=== PATIENT | female | born 1935 | race Caucasian/White ===

== ENCOUNTER 2016-11-04 09:01 | Outpatient (CLI) | payer MEDICARE, OTHER | END 2016-11-04 09:02 | disposition home or self-care (01) | DX: R10.9 Unspecified abdominal pain (principal) ==

== ENCOUNTER 2016-11-25 11:16 | Emergency (ER) | payer MEDICARE, OTHER ==
[2016-11-25] MEDS ORDERED: CLINDAMYCIN 150 MG CAPSULE PO STA (13:58)
[2016-11-25] MEDS ORDERED: CLINDAMYCIN 150 MG CAPSULE PO ONE (13:59)
== END 2016-11-25 14:10 | disposition home or self-care (01) ==
DX: L03.811 Cellulitis of head [any part, except face] (principal); T85.79XA Infection and inflammatory reaction due to other internal prosthetic devices, implants and grafts, initial encounter; Y83.8 Other surgical procedures as the cause of abnormal reaction of the patient, or of later complication, without mention of misadventure at the time of the procedure; I10 Essential (primary) hypertension; E11.9 Type 2 diabetes mellitus without complications; Z79.4 Long term (current) use of insulin; E78.5 Hyperlipidemia, unspecified; I25.10 Atherosclerotic heart disease of native coronary artery without angina pectoris; Z95.1 Presence of aortocoronary bypass graft; Z79.82 Long term (current) use of aspirin
CPT/HCPCS: 36415; 80053; 83605; 83690; 85025; 87040; 87070; 87205; 99283; A9270

== ENCOUNTER 2017-03-18 10:38 | Outpatient (CLI) | payer MEDICARE, OTHER ==
--- NOTE | 2017-03-19 17:49 | XRAY Report ---
RIGHT FOOT THREE VIEWS: 03/18/2017 CLINICAL HISTORY: Pain in the left hip and right foot. FINDINGS: Vascular calcification is seen in the anterior and posterior tibial arteries at the level of the ankle. Small accessory ossification center is seen adjacent to the tarsonavicular bone. Minimal narrowing is noted between the talus and navicular bone. Mild narrowing is seen at the right 1st MP joint. Mild n arrowing is seen in the proximal and distal interphalangeal joints of the 2nd, 4th and 5th toes. No s ignificant change is noted as compared to 08/29/2016. IMPRESSION: NO SIGNIFICANT CHANGE IS NOTED COMPARED TO 08/29/2016 WITH MILD OSTEOARTHRITIS OF THE RIGHT FOOT AND MILD OSTEOPOROSIS SEEN. JOB #: [id number] EXT JOB #:[id number]
--- NOTE | 2017-03-19 17:53 | XRAY Report ---
AP PELVIS AND FROGLEG LATERAL VIEW OF THE LEFT HIP: 03/18/2017 CLINICAL HISTORY: Pain. FINDINGS: The hip joints appear normal. No significant osteoarthritic change is detected in the hips . Mild narrowing of each SI joint. Minimal narrowing is noted in the symphysis pubis. Disk prosthesis is noted at L4-5. There are two in number at the L4-5 disk. There is also suggestion of disk space n arrowing at L5-S1. Some surgical clips are seen superimposed over the central aspect of the superior sacrum. Vascular calcification is noted in the femoral arteries. IMPRESSION: 1. NORMAL HIPS. 2. MILD OSTEOARTHRITIS IS NOTED IN THE SI JOINTS. 3. EVIDENCE OF BACK SURGERY IS NOTED WITH DISK PROSTHESES SEEN IN THE L4-5 DISK. DEGENERATIVE DISK DI SEASE IS ALSO NOTED AT L5-S1. :9 JOB #: [id number] EXT JOB #:[id number]
== END 2017-03-18 10:39 | disposition home or self-care (01) ==
LOC: DI.S 10:38
PROVIDERS: ATTEND Internal Medicine
DX: M19.071 Primary osteoarthritis, right ankle and foot (principal); M81.0 Age-related osteoporosis without current pathological fracture; M47.818 Spondylosis without myelopathy or radiculopathy, sacral and sacrococcygeal region; M51.37 Other intervertebral disc degeneration, lumbosacral region

== ENCOUNTER 2017-03-20 09:25 | Emergency (ER) | payer MEDICARE, OTHER ==
[2017-03-20 09:50] VITALS: BP 187/89
[2017-03-20 10:33] LABS: BILIRUBIN,URINE NEGATIVE (NEGATIVE); PH,URINE 5.5 PH (5.0-7.5)
[2017-03-20 10:38] LABS: UA CHARGE (STRIP ONLY) YES; UR CULTURE IF IND NOT INDICATED
[2017-03-20] MEDS ORDERED: TETANUS/DIPHTHERIA/PERTUSSIS 0.5 ML SYRINGE IM ONE (10:53)
--- NOTE | 2017-03-20 10:53 | ED Physician Documentation ---
PD HPI UPPER EXT INJURY - Stated complaint Stated Complaint: GLF/R ARM LAC - Chief complaint Chief Complaint: General - History obtained from History obtained from: Patient - History of Present Illness Location: Right, Arm Type of injury: Fall Where injury occurred: Home Timing - onset: Today Timing - duration: Minutes Timing - details: Abrupt onset, Still present Improved by: Rest, Immobilization Worsened by: Moving, Palpating Associated symptoms: No: Weakness, Numbness, Tingling, Swelling Contributing factors: No: Anticoagulated Similar symptoms before: Diagnosis (thin skin tear) Recently seen: Other (The patient has been on a course of antibiotic for UTI 2 weeks ago.) - Additonal information Additional information: 81-year-old female was getting up from the commode when she fell in her bathroom tearing the skin on her right arm. She did not have any loss of consciousness with a fall and she did not injure herself otherwise. She has been having an issue with urgency. And this is been long-standing. She is recently been treated for urinary tract infection. She does not feel that she has symptoms of urinary tract infection today. Review of Systems Constitutional: denies: Fever, Chills, Myalgias, Fatigue Eyes: denies: Decreased vision Ears: denies: Ear pain Nose: denies: Congestion Throat: denies: Sore throat Cardiac: denies: Chest pain / pressure GI: reports: Abdominal Pain, Nausea, Constipation : reports: Other (Urgency). denies: Dysuria, Frequency Skin: reports: Laceration (s). denies: Rash Musculoskeletal: reports: Extremity pain. 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 Cardiovascular: CABG - Present Medications Home Medications: Ambulatory Orders Medication Instructions Recorded Confirmed Cyanocobalamin (Vitamin B-12) 1,000 mcg SQ ONCE 05/16/14 10/10/15 [Cyanocobalamin Injection] Folic Acid 1 mg PO DAILY 05/16/14 10/10/15 Magnesium Oxide [Magnesium] 400 mg PO DAILY 05/16/14 10/10/15 Aspirin [Aspir-Low] 81 mg DAILY 11/25/16 11/25/16 Insulin Glargine [Lantus] 25 - 30 units QPM 11/25/16 11/25/16 - Allergies Allergies/Adverse Reactions: Allergies Allergy/AdvReac Type Severity Reaction Status Date / Time meperidine HCl * Allergy Severe Respiratory Verified 03/20/17 09:39 [From Demerol] pain meds Allergy Intermediate Nausea Uncoded 03/20/17 09:39 preservatives in lidocaine Allergy Intermediate Respiratory Uncoded 03/20/17 09: 39 preservatives in medications Allergy Intermediate Respiratory Uncoded 03/20/17 09:39 - Social History Does the pt smoke?: No Smoking Status: Never smoker PD ED PE NORMAL - Vitals Vital signs reviewed: Yes (Hypertensive) - General General: No acute distress, Well developed/nourished - HEENT HEENT: Atraumatic, PERRL - Neck Neck: Supple, no meningeal sign - Respiratory Respiratory: No respiratory distress - Derm Derm: Normal color, Warm and dry, No rash - Extremities Extremities: No deformity, No edema, Other (There is a thin skin tear to the right arm. Laterally.There is extensive tissue loss superficially and bleeding is controlled.) - Neuro Neuro: No motor deficit, No sensory deficit - Psych Psych: Normal mood, Normal affect Results - Vitals Vitals: Vital Signs - 24 hr 03/20/17 09:34 Temperature 36.4 C L Heart Rate 66 Respiratory 16 Rate Blood Pressure 187/89 H O2 Saturation 99 Oxygen O2 Source Room air - Labs Labs: Laboratory Tests 03/20/17 10:25 Urine Color YELLOW Urine Clarity CLEAR Urine pH 5.5 Ur Specific [place] >=1.030 H Urine Protein NEGATIVE Urine Glucose (UA) NEGATIVE Urine Ketones 15 H Urine Occult Blood NEGATIVE Urine Nitrite NEGATIVE Urine Bilirubin NEGATIVE Urine Urobilinogen 0.2 (NORMAL) Ur Leukocyte Esterase NEGATIVE Ur Microscopic Review NOT INDICATED Urine Culture Comments NOT INDICATED PD MEDICAL DECISION MAKING - ED course Complexity details: reviewed results, re-evaluated patient, considered differential, d/w patient ED course: 81-year-old female with a thin skin tear on her arm is cleansed and dressed conservatively there is missing tissue. The patient does have complaints of constipation she has used an enema without relief she has been taking something as well from above and believes this might be MiraLAX. She has not had results in 3 days. She has some nausea associated with this. She is encouraged to use milk of magnesia or magnesium citrate. Departure - Departure Disposition: 01 Home, Self Care Clinical Impression: Avulsion of skin of right upper extremity Qualifiers: Encounter type: initial encounter Qualified Code(s): S41.101A - Unspecified open wound of right upper arm, initial encounter Condition: Stable Instructions: ED Avulsion Dermal Follow-Up: Iván Downs MD [Primary Care Provider] -
[2017-03-20] MEDS ORDERED: cefTRIAXone 1 GM VIAL ONE (10:54)
== END 2017-03-20 11:23 | disposition home or self-care (01) ==
LOC: ED 09:25
DX: S41.101A Unspecified open wound of right upper arm, initial encounter (principal); W01.198A Fall on same level from slipping, tripping and stumbling with subsequent striking against other object, initial encounter; Y92.012 Bathroom of single-family (private) house as the place of occurrence of the external cause; N28.89 Other specified disorders of kidney and ureter; Z96.89 Presence of other specified functional implants; I25.10 Atherosclerotic heart disease of native coronary artery without angina pectoris; M51.36 Other intervertebral disc degeneration, lumbar region; M54.2 Cervicalgia; R42 Dizziness and giddiness; R10.0 Acute abdomen; R41.3 Other amnesia; R20.0 Anesthesia of skin; I11.0 Hypertensive heart disease with heart failure; I50.9 Heart failure, unspecified; E11.9 Type 2 diabetes mellitus without complications; Z79.4 Long term (current) use of insulin; K21.9 Gastro-esophageal reflux disease without esophagitis; M19.90 Unspecified osteoarthritis, unspecified site; Z79.82 Long term (current) use of aspirin
CPT/HCPCS: 70450; 72040; 74176; 81001; 81003; 87086; 90471; 99283

== ENCOUNTER 2017-03-20 13:10 | Outpatient (CLI) | payer MEDICARE, OTHER ==
--- NOTE | 2017-03-21 11:14 | CT Report ---
NONCONTRAST HEAD CT: 03/20/2017 CLINICAL HISTORY: Patient has headache. COMPARISON: 11/02/2014 TECHNIQUE: Noncontrast head CT was done at 5 x 5 mm intervals in axial and coronal reconstructions. In accordance with CT protocol optimization, one or more of the following dose reduction techniques w ere utilized for this exam: automated exposure control, adjustment of mA and/or KV based on patient size, or use of iterative reconstructive technique. FINDINGS: Cerebral ventricles show mild dilatation with mildly prominent sulci. Findings are compat ible with age-related cerebral atrophy. There is also some mild microvascular ischemic change, espec ially silhouetting the anterior horn of each lateral ventricle. These findings are unchanged as comp ared to preceding exam dated 11/02/2014. No extraaxial fluid collections are seen. No hemorrhage is noted. Brainstem and cerebellar hemispheres show no significant abnormality. Bone windows demonstrate no significant abnormality. IMPRESSION: MILD AGE-RELATED CEREBRAL ATROPHY AND MICROVASCULAR ISCHEMIC CHANGE, NOT SIGNIFICANTLY C HANGED COMPARED TO 11/02/2014. JOB #: [id number] EXT JOB #:[id number]
--- NOTE | 2017-03-21 11:37 | CT Report ---
NONCONTRAST CT SCAN OF THE ABDOMEN AND PELVIS: 03/20/2017 CLINICAL HISTORY: Severe abdominal pain. TECHNIQUE: Noncontrast CT exam of the abdomen and pelvis was done at 5 x 5 mm intervals with axial, coronal, and sagittal reconstructions. In accordance with CT protocol optimization, one or more of the following dose reduction techniques w ere utilized for this exam: automated exposure control, adjustment of mA and/or KV based on patient size, or use of iterative reconstructive technique. FINDINGS: Lower lung estrada show no significant abnormality. Sternal wire sutures are seen. Significant calcification is noted in the right coronary artery and i n the circumflex coronary artery. Also, calcification is seen in the distal anterior descending marcie nary artery. Liver and spleen are normal. Pancreas is mildly atrophic without abnormality. Gallbladder is not se en. It may be contracted or absent. No surgical clips are seen in the right upper quadrant of the a bdomen. Common hepatic and common bile duct do not appear to be distended. Adrenal glands are normal. Right kidney demonstrates a small calculus in association with the mid-to -inferior pole calyx. This measures 2 mm in diameter. There is calcification seen along the posteri or inferior aspect of the right kidney. This may represent scarring or may represent calcification w ithin a cyst. The calcification measures 7 mm. Left kidney demonstrates a mass with Hounsfield units of 34 extending from the lateral aspect of the posterior portion of the left kidney. This mass appears to be a solid one measuring 2.0 x 1.5 x 1.8 cm. It is suspicious for a renal cell carcinoma. Recommend a contrast-enhanced CT exam of the urina ry tract in both the corticomedullary and pyelogram phase for further evaluation. If patient cannot have a contrast-enhanced exam of the kidneys because of poor renal function, then recommend a left re nal ultrasound for further evaluation. Right ureter shows no definite abnormality. Right ureter is not distended. There is a small calcifi cation adjacent to the medial aspect of the mid right ureter that probably lies adjacent to the right ureter or within the right ureteral wall. It does not appear to reside in the lumen of the right ur eter. Left ureter shows no significant abnormality. Bladder shows no significant abnormality. Joseline aortic and pericaval region demonstrates no adenopathy. Significant vascular calcification is noted at the origin of the superior mesenteric artery. Patient may have a significant proximal superior me senteric artery stenosis. Vascular calcification is noted in the abdominal aorta and its iliac branc hes. Bowel gas pattern demonstrates the small bowel to be normal. This includes the terminal ileum. The colon shows a few small diverticula. These are noted at the junction of the descending and sigmo id colon and in the proximal transverse colon. There are also a few diverticula seen in the ascendin g colon. No obvious diverticulitis is seen. There is no adjacent mesenteric fat in association with any of the diverticula. A small sliding hiatal hernia is seen in the inferior mediastinum. There is a pain pump implanted within the subcutaneous soft tissues of the right anterior abdomen. F rom this pump extends a catheter that enters the spinal canal at about the T11-T12 level and then ext ends superiorly along the anterior aspect of the spinal canal. Disc prostheses are noted in place at L4-5. Significant disk space narrowing is noted at L1-2. Dege nerative disk disease is also noted at L3-4. IMPRESSION: 1. A 2.0 X 1.5 X 1.8 CM SOLID RENAL MASS IS SEEN EXTENDING FROM THE LATERAL POSTERIOR ASPECT OF THE UPPER POLE OF THE LEFT KIDNEY. THIS IS VERY SUSPICIOUS FOR A RENAL CELL CARCINOMA. IF POSSIBLE, REC OMMEND A CONTRAST-ENHANCED CT EXAM OF THE URINARY TRACT DEMONSTRATING THE KIDNEYS IN CORTICOMEDULLARY AND PYELOGRAM PHASE FOR FURTHER EVALUATION. IF THIS IS NOT POSSIBLE, PATIENT SHOULD HAVE A LEFT SHELLY AL ULTRASOUND. 2. TINY CALCULUS IS NOTED IN ASSOCIATION WITH THE MID POLE CALYX OF THE RIGHT KIDNEY. THERE IS ALSO A 0.7 CM IN DIAMETER CALCIFICATION IN THE INFERIOR POSTERIOR ASPECT OF THE RIGHT KIDNEY. THIS 0.7 C M CALCIFICATION REPRESENTS EITHER CALCIFIC SCAR OR CALCIFICATION WITHIN A CYST. 3. MILD DIVERTICULOSIS OF THE COLON IS SEEN. EXAMINATION IS NEGATIVE FOR DIVERTICULITIS. 4. PATIENT HAS A PAIN PUMP IMPLANTED IN THE SUBCUTANEOUS SOFT TISSUES OF THE RIGHT ANTEROLATERAL ABD OMINAL WALL. EPIDURAL CATHETER IS SEEN IN PLACE ENTERING THE POSTERIOR ASPECT OF THE SPINE AT T11-T1 2. THE CATHETER EXTENDS SUPERIORLY INTO THE THORACIC SPINE. 5. SMALL SLIDING HIATAL HERNIA IS SEEN IN THE INFERIOR MEDIASTINUM. 6. EXTENSIVE CORONARY ARTERY CALCIFICATION IN ASSOCIATION WITH [id number] CARDIOMEGALY. 7. DEGENERATIVE DISK DISEASE IS NOTED OF THE LUMBAR SPINE IN ASSOCIATION WITH EVIDENCE OF BACK SURGE RY WITH DISC PROSTHESIS SEEN AT L4-5. JOB #: [id number] EXT JOB #:[id number]
== END 2017-03-20 13:11 | disposition home or self-care (01) ==
LOC: DI 13:10
PROVIDERS: ATTEND Nurse Practitioner Family
DX: N28.89 Other specified disorders of kidney and ureter (principal); Z96.89 Presence of other specified functional implants; I25.10 Atherosclerotic heart disease of native coronary artery without angina pectoris; M51.36 Other intervertebral disc degeneration, lumbar region; R42 Dizziness and giddiness; R10.0 Acute abdomen; R41.3 Other amnesia; R20.0 Anesthesia of skin
CPT/HCPCS: 70450; 74176

== ENCOUNTER 2017-03-20 13:16 | Outpatient (CLI) | payer MEDICARE, OTHER ==
--- NOTE | 2017-03-21 11:21 | XRAY Report ---
THREE VIEW CERVICAL SPINE: 03/20/2017 CLINICAL INDICATION: Neck pain. FINDINGS: AP, lateral, and odontoid views of the cervical spine demonstrate moderate degenerative di sk and facet disease, with disk space narrowing worst at C4-5. There is no evidence of acute fracture or dislocation. No prevertebral soft tissue swelling is appreciated. IMPRESSION: MODERATE DEGENERATIVE CHANGES. JOB #: [id number] EXT JOB #:[id number]
== END 2017-03-20 13:17 | disposition home or self-care (01) ==
LOC: DI 13:16
PROVIDERS: ATTEND Nurse Practitioner Family
DX: M54.2 Cervicalgia (principal)
CPT/HCPCS: 72040

== ENCOUNTER 2017-05-20 12:35 | Outpatient (CLI) | payer MEDICARE, OTHER ==
[2017-05-20 18:15] LABS: CALCIUM 9.5 mg/dL (8.5-10.3); CREATININE 0.9 mg/dL (0.4-1.0); POTASSIUM 4.1 mmol/L (3.5-5.0)
[2017-05-20 18:34] LABS: TOTAL T3 0.99 ng/mL (0.87-1.78)
== END 2017-05-20 12:36 | disposition home or self-care (01) ==
LOC: LAB.F 12:35
PROVIDERS: ATTEND Physician Assistant
DX: I25.5 Ischemic cardiomyopathy (principal); I50.22 Chronic systolic (congestive) heart failure; I25.810 Atherosclerosis of coronary artery bypass graft(s) without angina pectoris; E78.5 Hyperlipidemia, unspecified; I10 Essential (primary) hypertension
CPT/HCPCS: 36415; 80048; 82607; 83880; 84439; 84480

== ENCOUNTER 2017-05-29 10:32 | Emergency (ER) | payer MEDICARE, OTHER ==
[2017-05-29 10:36] VITALS: BP 130/62
--- NOTE | 2017-05-29 12:21 | ED Physician Documentation ---
History of Present Illness - Stated complaint Stated Complaint: BACK/LEGS PX - Chief complaint Chief Complaint: Ext Problem - History obtained from History obtained from: Patient - History of Present Illness Timing: Chronic (This is a very pleasant 81-year-old woman with chronic back pain, history of multiple surgeries. She has daily low back pain that radiates usually in the left leg but sometimes the right, never both at the same time. It sounds like she is getting ready to see an orthopedic physician and was referred here either by the new orthopedist or her primary care physician for imaging of some sort. There are no acute complaints. There is no saddle anesthesia. No incontinence that is new.) Review of Systems Constitutional: denies: Fever, Chills Throat: reports: Reviewed and negative Cardiac: reports: Reviewed and negative Respiratory: reports: Reviewed and negative PD PAST MEDICAL HISTORY - Past Medical History Past Medical History: Yes Cardiovascular: Congestive heart failure, Hypertension, Coronary artery disease Respiratory: Shortness of breath Neuro: Other Endocrine/Autoimmune: Type 2 diabetes GI: GERD, Hiatal hernia, Diverticulitis : Renal insuffiency HEENT: Chronic hearing loss Psych: Depression Musculoskeletal: Osteoarthritis, Chronic back pain Derm: Other - Past Surgical History Past Surgical History: Yes General: Cholecystectomy, Other 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 Cardiovascular: CABG - Present Medications Home Medications: Ambulatory Orders Medication Instructions Recorded Confirmed Folic Acid 1 mg PO DAILY 05/16/14 05/29/17 Aspirin [Aspir-Low] 81 mg DAILY 11/25/16 05/29/17 Blood Pressure Medication 05/29/17 - Allergies Allergies/Adverse Reactions: Allergies Allergy/AdvReac Type Severity Reaction Status Date / Time meperidine HCl * Allergy Severe Respiratory Verified 05/29/17 10:36 [From Demerol] pain meds Allergy Intermediate Nausea Uncoded 05/29/17 10:36 preservatives in lidocaine Allergy Intermediate Respiratory Uncoded 05/29/17 10: 36 preservatives in medications Allergy Intermediate Respiratory Uncoded 05/29/17 10:36 - Social History Does the pt smoke?: No Smoking Status: Never smoker Does the pt drink ETOH?: No Does the pt have substance abuse?: Yes Substance Use and Type: Marijuana - Immunizations Immunizations are current?: Yes - POLST Patient has POLST: Yes PD ED PE NORMAL - Vitals Vital signs reviewed: Yes - General General: Alert and oriented X 3, No acute distress - Back Back: No spinal TTP - Extremities Extremities: Other (She has diminished sensation in the left leg over the anterior thigh and medial calf but not absent. She has a diminished right patellar reflex but good left patellar reflex. Negative straight leg raises.) - Neuro Neuro: Alert and oriented X 3, Normal speech - Psych Psych: Normal mood, Normal affect Results - Vitals Vitals: Vital Signs - 24 hr 05/29/17 10:34 Temperature 36.3 C L Heart Rate 66 Respiratory 18 Rate Blood Pressure 130/62 O2 Saturation 99 Oxygen O2 Source Room air - Labs Labs: Laboratory Tests 05/29/17 05/29/17 13:02 13:02 WBC 7.8 RBC 4.61 Hgb 13.7 Hct 39.9 MCV 86.5 MCH 29.6 MCHC 34.3 RDW 13.2 Plt Count 191 MPV 9.0 Neut # 4.7 Lymph # 2.2 [place] # 0.6 Eos # 0.1 Baso # 0.1 Absolute Nucleated RBC 0.00 Nucleated RBC % 0.0 Sodium 137 Potassium 4.0 Chloride 102 Carbon Dioxide 25 Anion Gap 10.0 BUN 14 Creatinine 0.8 Estimated GFR (MDRD) 69 L Glucose 151 H Calcium 9.6 Total Bilirubin 0.8 AST 19 ALT 13 Alkaline Phosphatase 101 Total Protein 6.7 Albumin 4.1 Globulin 2.6 Albumin/Globulin Ratio 1.6 Lipase 31 - Rads (name of study) CT Lspine Radiology: EMP read contemporaneously (DDD With grade 1 spondylolisthesis at L3- L4 with chronic spurring causing moderate to marked central canal stenosis, similar to previous.) PD MEDICAL DECISION MAKING - ED course ED course: I spoke with her primary care physician, Bozena Tapia at 12:50 PM. Per her although the patient denied this to me, she did have a recent fall with new excruciating back pain. She says that the patient's memory is very poor and I should not really trust the history I am getting from her. There is also a report of some black stools, pt admits to this and says resolved. No acute changes on her CT, she was given a copy on CD to take to her new spine surgeon in follow-up. Departure - Departure Disposition: 01 Home, Self Care Clinical Impression: Acute exacerbation of chronic low back pain, Dark stools Condition: Good Record reviewed to determine appropriate education?: Yes Instructions: ED Back Care Tips Comments: Follow-up with your primary care physician for referral to a spine surgeon as discussed. Return for new or worsening issues.
[2017-05-29 13:10] LABS: BASOPHILS # (AUTO) 0.1 10^3/uL (0.0-0.1); BASOPHILS % (AUTO) 0.7 %; EOSINOPHILS # (AUTO) 0.1 10^3/uL (0.0-0.7); EOSINOPHILS % (AUTO) 1.5 %; HCT - HEMATOCRIT 39.9 % (37.0-47.0); HGB - HEMOGLOBIN 13.7 g/dL (12.0-16.0); LYMPHOCYTES # (AUTO) 2.2 10^3/uL (1.5-3.5); LYMPHOCYTES % (AUTO) 28.8 %; MEAN CORPUSCULAR HEMOGLOBIN 29.6 pg (27.0-31.0); MEAN CORPUSCULAR HGB CONC 34.3 g/dL (32.0-36.0); MEAN CORPUSCULAR VOLUME 86.5 fL (81.0-99.0); MONOCYTES # (AUTO) 0.6 10^3/uL (0.0-1.0); NEUTROPHILS # (AUTO) 4.7 10^3/uL (1.5-6.6); RED BLOOD COUNT 4.61 10^6/uL (4.20-5.40); RED CELL DISTRIBUTION WIDTH 13.2 % (12.0-15.0); UNCORRECTED WHITE BLOOD COUNT 7.8 x10^3/uL; WHITE BLOOD COUNT 7.8 x10^3/uL (4.8-10.8)
[2017-05-29 13:24] LABS: ALBUMIN/GLOBULIN RATIO 1.6 (1.0-2.2); BILIRUBIN,TOTAL 0.8 mg/dL (0.2-1.0); CALCIUM 9.6 mg/dL (8.5-10.3); CREATININE 0.8 mg/dL (0.4-1.0); TOTAL PROTEIN 6.7 g/dL (6.7-8.2)
--- NOTE | 2017-05-29 14:10 | CT Preliminary Report ---
Exam: CT Lumbar Spine W/O IMPRESSION: 1. Negative for acute fracture. 2. Degenerative disk disease at multiple levels including grade 1 spondylolisthesis at L3-L4 with chr onic spurring causing moderate to marked central spinal canal stenosis which appears similar to previ ous. [facility] SITE ID: [id number]
--- NOTE | 2017-05-29 14:13 | CT Report ---
EXAM: CT LUMBAR SPINE WITHOUT CONTRAST EXAM DATE: 05/29/2017 01:46 PM. CLINICAL HISTORY: Fall, back pain. COMPARISONS: Abdomen CT 03/20/2017. TECHNIQUE: Thin-section axial images were acquired of the lumbar spine from T12 to S1 without contras t. Post-processing: Coronal and sagittal reformats. Other: None. In accordance with CT protocol optimization, one or more of the following dose reduction techniques w ere utilized for this exam: automated exposure control, adjustment of mA and/or KV based on patient s ize, or use of iterative reconstructive technique. FINDINGS: Alignment: There is 4 mm of anterolisthesis at L3-L4. Alignment at other levels is satisfactory. No s coliosis. Bones: Five [id number] lumbar vertebral bodies are present. There is diffuse demineralization of the lumbar spine. Prior surgery at L4-L5 noted. There is fusion of the posterior elements. There is an interbody prosthesis at L4-L5. There is moderate endplate sclerosis and spurring at L1 to. There a re degenerative cysts around the spinous process of L3-L4. Disk Levels/Facets: T12-L1: No stenosis. L1-L2: Mild disk osteophyte spurring causes mild bony central spinal canal narrowing. L2-L3: Mild disk height loss and intradiskal gas without significant stenosis. L3-L4: Moderate disk height loss with intradiskal gas. Posterior element hypertrophy and spurring cau ses moderate to marked central spinal canal stenosis. L4-L5: No stenosis. L5-S1: No stenosis. Musculature: Normal. No fatty atrophy. Other: There is an unchanged exophytic left renal cortical lesion consistent with a cyst. There are p arenchymal calcifications in the right kidney. No hydronephrosis. IMPRESSION: 1. Negative for acute fracture. 2. Degenerative disk disease at multiple levels including grade 1 spondylolisthesis at L3-L4 with chr onic spurring causing moderate to marked central spinal canal stenosis which appears similar to previ ous. [facility] Referring Provider Line: [phone] SITE ID: [id number]
== END 2017-05-29 14:32 | disposition home or self-care (01) ==
LOC: ED 10:32
DX: M54.5 Low back pain (principal); G89.29 Other chronic pain; R19.5 Other fecal abnormalities; I11.0 Hypertensive heart disease with heart failure; I50.9 Heart failure, unspecified; I25.10 Atherosclerotic heart disease of native coronary artery without angina pectoris; I25.83 Coronary atherosclerosis due to lipid rich plaque; E11.9 Type 2 diabetes mellitus without complications
CPT/HCPCS: 36415; 72131; 80053; 83690; 85025; 99283; 99284

== ENCOUNTER 2017-09-12 15:15 | Outpatient (CLI) | payer MEDICARE, OTHER ==
--- NOTE | 2017-09-13 17:05 | XRAY Report ---
EXAMS: 1. Right Hand Radiography 2. Left Hand Radiography EXAM DATE: 09/12/2017 04:06 PM. CLINICAL HISTORY: Pain, swelling. COMPARISON: None. TECHNIQUE: 3 views each hand. FINDINGS: Right: Bones: Normal. No fractures or bone lesions. Joints: Moderately advanced IP joint osteoarthritic change, joint space narrowing and marginal arthro sis. MCP joints are not involved. Soft Tissues: Normal. No soft tissue swelling. Left: Bones: Normal. No fractures or bone lesions. Joints: Moderate IP joint osteoarthritic narrowing and tiny subchondral cyst formation seen at the pr oximal aspect of the third proximal phalanx. First CMC joint shows moderate osteoarthritic change. MC P joints are spared. Soft Tissues: Normal. No soft tissue swelling. IMPRESSION: 1. Moderately severe bilateral osteoarthritis, worse on the left. [facility] Referring Provider Line: [phone] SITE ID: [id number]
== END 2017-09-12 15:16 | disposition home or self-care (01) ==
LOC: DI.S 15:15
PROVIDERS: ATTEND Physician Assistant
DX: M19.042 Primary osteoarthritis, left hand (principal); M19.041 Primary osteoarthritis, right hand

== ENCOUNTER 2017-11-13 20:10 | Emergency (ER) | payer MEDICARE, OTHER ==
[2017-11-13] MEDS ORDERED: ASPIRIN CHEW 81 MG TABLET PO STA (20:35)
[2017-11-13 20:45] LABS: BASOPHILS # (AUTO) 0.1 10^3/uL (0.0-0.1); BASOPHILS % (AUTO) 1.1 %; EOSINOPHILS # (AUTO) 0.2 10^3/uL (0.0-0.7); EOSINOPHILS % (AUTO) 2.9 %; HGB - HEMOGLOBIN 14.2 g/dL (12.0-16.0); LYMPHOCYTES # (AUTO) 2.4 10^3/uL (1.5-3.5); LYMPHOCYTES % (AUTO) 31.5 %; MEAN CORPUSCULAR HGB CONC 32.9 g/dL (32.0-36.0); MEAN CORPUSCULAR VOLUME 88.3 fL (81.0-99.0); MEAN PLATELET VOLUME 8.6 fL (7.9-10.8); MONOCYTES # (AUTO) 0.5 10^3/uL (0.0-1.0); MONOCYTES % (AUTO) 6.7 %; NEUTROPHILS # (AUTO) 4.4 10^3/uL (1.5-6.6); NEUTROPHILS % (AUTO) 57.8 %; PLT - PLATELET COUNT 197 10^3/uL (130-450); RED CELL DISTRIBUTION WIDTH 13.6 % (12.0-15.0); WHITE BLOOD COUNT 7.6 x10^3/uL (4.8-10.8)
[2017-11-13 20:50] LABS: PT - PROTHROMBIN TIME 11.1 secs (9.9-12.6)
--- NOTE | 2017-11-13 20:58 | ED Physician Documentation ---
PD HPI CHEST PAIN - Stated complaint Stated Complaint: CHEST PX - Chief complaint Chief Complaint: Cardiac - History obtained from History obtained from: Patient, Friend - History of Present Illness Timing - onset: How many hours ago (4) Timing - onset during: Rest Timing - details: Abrupt onset, Now resolved Quality: Pressure, Sharp Location: Left chest Worsened by: No: Exertion, Inspiration, Eating Associated symptoms: No: Shortness of air, Diaphoresis, Nausea, Vomiting, Feeling faint / dizzy Similar symptoms before: Work up / diagnostics, Treatment Recently seen: Clinic - Additional information Additional information: Patient is an 82 year old female with a history of prior cardiac bypass who is presenting to the emergency department for chest pain. Patient states that she was at the [employer] about 4 hours prior when she developed chest pain. Patient denies any exertional component to the pain. Patient denies any aggravating or alleviating factors. Patient went to see her doctor when it happened who recommended going to a [facility] where here procedures were done, but patient did not want to go, but was persuaded to at least come here. Upon initial evaluation in the emergency department patient states that her pain has resolved. Patient states that she had a stress test and an echo about 4 months ago and was told it was ok. Review of Systems Constitutional: denies: Fever, Chills Eyes: reports: Reviewed and negative Ears: reports: Reviewed and negative Nose: reports: Reviewed and negative Throat: reports: Reviewed and negative Cardiac: reports: Chest pain / pressure. denies: Palpitations Respiratory: denies: Dyspnea, Cough, Wheezing GI: denies: Abdominal Pain, Nausea, Vomiting : denies: Dysuria, Frequency Skin: denies: Rash, Lesions Musculoskeletal: reports: Reviewed and negative. denies: Extremity swelling Neurologic: denies: Generalized weakness, Focal weakness Immunocompromised: denies: Immunocompromised PD PAST MEDICAL HISTORY - Past Medical History Cardiovascular: Congestive heart failure, Hypertension, Coronary artery disease Respiratory: Shortness of breath Neuro: Other Endocrine/Autoimmune: Type 2 diabetes GI: GERD, Hiatal hernia, Diverticulitis : Renal insuffiency HEENT: Chronic hearing loss Psych: Depression Musculoskeletal: Osteoarthritis, Chronic back pain Derm: Other - Past Surgical History Past Surgical History: Yes General: Cholecystectomy, Other Ortho: 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 Cardiovascular: CABG - Present Medications Home Medications: Ambulatory Orders Medication Instructions Recorded Confirmed Folic Acid 1 mg PO DAILY 09/15/14 09/28/17 Aspirin [Aspir-Low] 81 mg DAILY 11/25/16 05/29/17 Blood Pressure Medication 05/29/17 Acetaminophen/Diphenhydramine 1 each PO 11/13/17 [Tylenol Pm Ex-Strength Caplet] Cholecalciferol (Vitamin D3) 5,000 unit PO 11/13/17 [Vitamin D3] Docusate Sodium [Colace Clear] 11/13/17 Meloxicam 7.5 mg PO 11/13/17 Mirtazapine 15 mg PO 11/13/17 Spironolactone 11/13/17 Tramadol HCl 50 mg PO 11/13/17 Valsartan [Diovan] 40 mg PO 11/13/17 diazePAM [Valium] 11/13/17 - Allergies Allergies/Adverse Reactions: Allergies Allergy/AdvReac Type Severity Reaction Status Date / Time meperidine HCl * Allergy Severe Respiratory Verified 11/13/17 20:30 [From Demerol] pain meds Allergy Intermediate Nausea Uncoded 11/13/17 20:30 preservatives in lidocaine Allergy Intermediate Respiratory Uncoded 11/13/17 20: 30 preservatives in medications Allergy Intermediate Respiratory Uncoded 11/13/17 20:30 - Social History Does the pt smoke?: No Smoking Status: Never smoker Does the pt drink ETOH?: No Does the pt have substance abuse?: Yes - Immunizations Immunizations are current?: Yes - POLST Patient has POLST: Yes PD ED PE NORMAL - Vitals Vital signs reviewed: Yes - General General: Alert and oriented X 3, No acute distress - HEENT HEENT: Atraumatic, PERRL - Neck Neck: Supple, no meningeal sign, No JVD - Cardiac Cardiac: RRR - Respiratory Respiratory: No respiratory distress - Abdomen Abdomen: Soft, Non tender, Non distended - Derm Derm: Normal color, Warm and dry - Extremities Extremities: No deformity, No calf tenderness / cord - Neuro Neuro: Alert and oriented X 3, 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, No motor deficit, No sensory deficit, Normal speech Eye Opening: Spontaneous Motor: Obeys Commands Verbal: Oriented GCS Score: 15 Results - Vitals Vitals: Vital Signs - 24 hr 11/13/17 11/13/17 20:13 22:59 Temperature 36.2 C L 36.4 C L Heart Rate 68 60 Respiratory 18 18 Rate Blood Pressure 129/76 179/68 H O2 Saturation 96 97 Oxygen O2 Source Room air - EKG (time done) 2019 Rate: Rate (enter#) (71) Rhythm: NSR [place]: Anterior hemiblock Intervals: RBBB Compare to prior EKG: Changed from prior EKG - Labs Labs: Laboratory Tests 11/13/17 11/13/17 11/13/17 20:30 20:30 20:30 WBC 7.6 RBC 4.90 Hgb 14.2 Hct 43.3 MCV 88.3 MCH 29.0 MCHC 32.9 RDW 13.6 Plt Count 197 MPV 8.6 Neut # 4.4 Lymph # 2.4 [place] # 0.5 Eos # 0.2 Baso # 0.1 Absolute Nucleated RBC 0.02 Nucleated RBC % 0.3 PT 11.1 INR 1.0 APTT 27.4 Sodium 136 Potassium 3.9 Chloride 104 Carbon Dioxide 22 Anion Gap 10.0 BUN 26 H Creatinine 0.9 Estimated GFR (MDRD) 60 L Glucose 161 H Calcium 9.1 Phosphorus 3.6 Magnesium 1.9 Total Bilirubin 0.5 AST 21 ALT 11 Alkaline Phosphatase 75 Troponin I B-Natriuretic Peptide Total Protein 7.0 Albumin 4.4 Globulin 2.6 Albumin/Globulin Ratio 1.7 Lipase 53 H 11/13/17 11/13/17 11/13/17 20:30 20:30 22:06 WBC RBC Hgb Hct MCV MCH MCHC RDW Plt Count MPV Neut # Lymph # [place] # Eos # Baso # Absolute Nucleated RBC Nucleated RBC % PT INR APTT Sodium Potassium Chloride Carbon Dioxide Anion Gap BUN Creatinine Estimated GFR (MDRD) Glucose Calcium Phosphorus Magnesium Total Bilirubin AST ALT Alkaline Phosphatase Troponin I < 0.04 < 0.04 B-Natriuretic Peptide 36 Total Protein Albumin Globulin Albumin/Globulin Ratio Lipase PD MEDICAL DECISION MAKING - ED course Complexity details: reviewed old records, reviewed results, re-evaluated patient , considered differential, d/w patient, d/w family ED course: Patient was seen and examined at bedside. ekg was performed and showed rbbb. Iv access was gained and labs were drawn. chest x-ray was ordered. Patient was treated with aspirin. [facility] was contacted for previous results but the most current results were with the primary pad extractor tender. Garbage Collection Supervisor was contacted and case was discussed with covering pad extractor tender. He reported that RBBB in itself is not significant and if there were serial negative troponins, patient was likely stable for outpatient follow up. Repeat troponins remained negative. Patient remained chest pain free while in the emergency department and stated that she wanted to go home. While patient was relatively high risk she was asymptomatic and stated that she would follow up with her doctor tomorrow. Patient was discharged in stable condition. Departure - Departure Disposition: Home, Self Care Clinical Impression: Atypical chest pain Condition: Good Instructions: ED Chest Pain Atypical Unkn Cause Follow-Up: Marjorie Tapia PA [Primary Care Provider] - Tomorrow Comments: Your diagnostics today were within normal limits. Your pain is less likely to be cardiac in nature. the tests today were only a snapshot in time and it is important that you follow up with your doctor tomorrow. You may return to the emergency department at any time for new, worsening or uncontrollable symptoms.
[2017-11-13 20:59] LABS: ALBUMIN 4.4 g/dL (3.2-5.5); ALBUMIN/GLOBULIN RATIO 1.7 (1.0-2.2); BILIRUBIN,TOTAL 0.5 mg/dL (0.2-1.0); CALCIUM 9.1 mg/dL (8.5-10.3); CREATININE 0.9 mg/dL (0.4-1.0); MAGNESIUM 1.9 mg/dL (1.7-2.8); PHOSPHORUS 3.6 mg/dL (2.5-4.6)
--- NOTE | 2017-11-13 21:12 | XRAY Preliminary Report ---
Exam: XR CHEST 1 VIEW X-RAY IMPRESSION: Negative for an acute cardiopulmonary abnormality. [facility] SITE ID: [id number]
--- NOTE | 2017-11-13 21:13 | XRAY Report ---
EXAM: CHEST RADIOGRAPHY EXAM DATE: 11/13/2017 08:54 PM. CLINICAL HISTORY: Chest pain. COMPARISON: None. TECHNIQUE: 1 view. FINDINGS: Lungs/Pleura: No focal opacities evident. No pleural effusion. No pneumothorax. Mediastinum: The heart size is normal. There is mild/moderate aortic arch atherosclerotic calcificati on. There are sternotomy wires which are unchanged in location. Other: None. IMPRESSION: Negative for an acute cardiopulmonary abnormality. [facility] Referring Provider Line: [phone] SITE ID: [id number]
[2017-11-13 23:00] VITALS: BP 179/68
== END 2017-11-13 23:08 | disposition home or self-care (01) ==
LOC: ED 20:10
DX: R07.89 Other chest pain (principal); I45.10 Unspecified right bundle-branch block; E11.9 Type 2 diabetes mellitus without complications; I11.0 Hypertensive heart disease with heart failure; I25.10 Atherosclerotic heart disease of native coronary artery without angina pectoris; I50.9 Heart failure, unspecified; Z95.1 Presence of aortocoronary bypass graft; Z79.82 Long term (current) use of aspirin
CPT/HCPCS: 36415; 71045; 80053; 83690; 83735; 83880; 84100; 84484; 85025; 85610; 85730; 93005; 99283; 99284; A9270

== ENCOUNTER 2018-02-26 17:42 | Emergency (ER) | payer MEDICARE, OTHER ==
[2018-02-26 18:07] VITALS: BP 99/71
--- NOTE | 2018-02-26 18:38 | ED Physician Documentation ---
PD HPI BACK PAIN - Stated complaint Stated Complaint: LOW BACK PX - Chief complaint Chief Complaint: Back Pain - History obtained from History obtained from: Patient - History of Present Illness Timing - onset: How many days ago (has had ongoing/recurrent low back pain and then has had worse pain the past few days/week or so. Radiates to left leg. No weakness nor incontinence.) Timing - duration: Days Timing - details: Gradual onset, Still present Location: Lower Associated symptoms: Fever, Weakness Worsened by: Movement Contributing factors: No: Twisting, Trauma Similar symptoms before: Has not had sx before Recently seen: Clinic (seen in PMD clinic and getting referral for MRI, but did not go through yet, so here for evaluation and to get MRI spine.) Review of Systems Constitutional: denies: Fever, Chills, Myalgias Nose: denies: Rhinorrhea / runny nose, Congestion Throat: denies: Sore throat Respiratory: denies: Cough GI: denies: Abdominal Pain, Nausea, Vomiting : denies: Incontinent Skin: denies: Rash, Lesions Musculoskeletal: reports: Back pain. 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 Cardiovascular: CABG - Present Medications Home Medications: Ambulatory Orders Medication Instructions Recorded Confirmed Folic Acid 1 mg PO DAILY 05/16/14 05/29/17 Aspirin [Aspir-Low] 81 mg DAILY 11/25/16 05/29/17 Blood Pressure Medication 05/29/17 Acetaminophen/Diphenhydramine 1 each PO 11/13/17 [Tylenol Pm Ex-Strength Caplet] Cholecalciferol (Vitamin D3) 5,000 unit PO 11/13/17 [Vitamin D3] Docusate Sodium [Colace Clear] 11/13/17 Meloxicam 7.5 mg PO 11/13/17 Mirtazapine 15 mg PO 11/13/17 Spironolactone 11/13/17 Tramadol HCl 50 mg PO 11/13/17 Valsartan [Diovan] 40 mg PO 11/13/17 diazePAM [Valium] 11/13/17 Dexamethasone [Decadron] 4 mg PO DAILY #5 tablet 02/26/18 Lidocaine Patch 5% [Lidoderm Patch] 1 each TOP DAILY #10 patch 02/26/18 Methocarbamol [Robaxin] 500 mg PO TID #15 tablet 02/26/18 - Allergies Allergies/Adverse Reactions: Allergies Allergy/AdvReac Type Severity Reaction Status Date / Time meperidine HCl * Allergy Severe Respiratory Verified 02/26/18 18:51 [From Demerol] pain meds Allergy Intermediate Nausea Uncoded 02/26/18 18:51 preservatives in lidocaine Allergy Intermediate Respiratory Uncoded 02/26/18 18: 51 preservatives in medications Allergy Intermediate Respiratory Uncoded 02/26/18 18:51 - Social History Does the pt smoke?: No Smoking Status: Never smoker Does the pt drink ETOH?: No Does the pt have substance abuse?: Yes - Immunizations Immunizations are current?: Yes - POLST Patient has POLST: Yes PD ED PE NORMAL - Vitals Vital signs reviewed: Yes - General General: Alert and oriented X 3, Well developed/nourished, Other (seems uncomfortable due to low back pain, guarding ROM somewhat. ) Results - Vitals Vitals: Oxygen O2 Source Room air PD MEDICAL DECISION MAKING - ED course Complexity details: considered differential (main impetus for visit was to get MRI, but I talked with her about guidelines and indications for emegent MRI. Will give some meds for pain. ), d/w patient - Sepsis Event Vital Signs: Oxygen O2 Source Room air Departure - Departure Disposition: 01 Home, Self Care Clinical Impression: Back pain Qualifiers: Back pain location: low back pain Chronicity: chronic Back pain laterality: bilateral Sciatica presence: with sciatica Sciatica laterality: sciatica of left side Qualified Code(s): M54.42 - Lumbago with sciatica, left side Condition: Stable Record reviewed to determine appropriate education?: Yes Instructions: ED Low Back Pain Injury Follow-Up: Marjorie Tapia PA [Primary Care Provider] - Prescriptions: Dexamethasone [Decadron] 4 mg PO DAILY #5 tablet Lidocaine Patch 5% [Lidoderm Patch] 1 each TOP DAILY #10 patch Methocarbamol [Robaxin] 500 mg PO TID #15 tablet Comments: Continue usual medications. Use Tylenol 650 mg 3 times a day. You can apply lidocaine patches to the sore area in the low back to see if that helps. Decadron anti-inflammatory daily for the next several days to see if that helps as well. Methocarbamol muscle relaxant I half to 1 tablet 3 times a day for spasms and stiffness. Follow-up with your primary care regarding further treatment. Discharge Date/Time: 02/26/18 19:05
[2018-02-26] MEDS ORDERED: METHOCARBAMOL 500 MG TABLET PO STA (18:57)
[2018-02-26] MEDS ORDERED: DEXAMETHASONE 10 MG/ML VIAL PO STA (18:57)
[2018-02-26] MEDS ORDERED: ACETAMINOPHEN 325 MG TABLET PO STA (18:57)
== END 2018-02-26 19:05 | disposition home or self-care (01) ==
LOC: ED 17:42
DX: M54.42 Lumbago with sciatica, left side (principal); I11.0 Hypertensive heart disease with heart failure; I50.9 Heart failure, unspecified; E11.29 Type 2 diabetes mellitus with other diabetic kidney complication; Z79.82 Long term (current) use of aspirin
CPT/HCPCS: 99283; A9270

== ENCOUNTER 2018-03-10 17:30 | Outpatient (CLI) | payer MEDICARE, OTHER ==
[~2018-03-10 17:30] MED LIST: GADOBUTROL 7.5 MMOL/7.5 ML VIAL ONE
[2018-03-10] MEDS ORDERED: GADOBUTROL 7.5 MMOL/7.5 ML VIAL IVP ONE (17:52)
--- NOTE | 2018-03-11 14:16 | MRI Report ---
Procedure Date: 03/10/2018 Accession Number: [id number] / [id number] Procedure: MRI - Lumbar Spine W/WO CPT Code: FULL RESULT: EXAM: MRI LUMBAR SPINE WITHOUT AND WITH CONTRAST EXAM DATE: 03/10/2018 06:24 PM. CLINICAL HISTORY: Low back pain, spinal stenosis. History of fusion. COMPARISONS: No previous MRI. CT correlation 05/29/2017. TECHNIQUE: Multiplanar, multisequence T1-weighted and fluid-sensitive sequences of the lumbar spine from T12 to S1 before and after administration of intravenous contrast. Other: None. IV contrast: Without and with 7 mm IV Gadavist as requested by the ordering provider.. FINDINGS: Spinal Cord: The conus terminates at T12-L1. Unremarkable appearance of the visualized caudal thoracic cord and conus. Alignment: No interval change of alignment. Subluxations include retrolisthesis of L1 on L2 and L2 on L3 and anterolisthesis of L3 on L4. There is residual L4 on L5 anterolisthesis. Bone Marrow: Five pwi-pxt-[id number] lumbar vertebral bodies are assumed. Mild chronic-appearing degenerative endplate signal changes at L1-L2, L2-L3, and L3-L4. Marrow signal is obscured by susceptibility artifact from interbody metallic fusion cages at the L4-L5 level. Disk Levels/Facets: T12-L1: No significant stenosis. L1-L2: Moderately prominent degenerative disk disease. Axwk-tf-umvwaekc facet arthropathy. Broad-based bulge and marginal spurring. Disk bulge with osteophyte extends laterally into both moderately stenotic foramina. L2-L3: Mild to moderate degenerative disk disease. Yddwgmtj-[id number] facet arthropathy with ligamentum flavum thickening and facet joint effusions. Prominent circumferential disk bulge with marginal spurring. Additional intraforaminal disk protrusions are present, more bulky to the left of midline. Mild central canal stenosis. Foraminal stenosis is mild to moderate on the right, but potentially severe on the left. L3-L4: Moderate to severe degenerative disk disease and facet arthropathy. Large broad-based disk bulge with intraforaminal and left greater than right extraforaminal components. Bilateral foraminal stenosis is present, severe on the left and moderate to severe on the right. Central canal stenosis is minimal. Both lateral recesses are mildly stenotic. Central stenosis appears to have significantly improved in the interval status post dorsal surgical decompression of the central canal at L3-L4. L4-L5: Solidly fused disk space. Detailed evaluation limited by susceptibility artifact. Central canal appears patent, but the foramina are ill-defined. L5-S1: Prominent chronic hypertrophic degenerative changes where the enlarged left L5 transverse process articulates with the top of the left sacrum creating a left side pseudo-sacralized appearance. Moderately prominent bilateral facet arthropathy is present. Disk space degeneration is mild. No significant or progressive central canal or foraminal stenosis. Mild narrowing and deformity of the left lateral recess, but without definite nerve root impingement. Spinal Canal: No enhancing masses within the spinal canal. No epidural abscess. Musculature: Diffuse fatty atrophy. Other: Disruption of normal tissue planes with amorphous enhancement is present as expected along the surgical incision dorsally associated with L3-L4 level dorsal decompression. IMPRESSION: 1. Compared to prior CT, interval dorsal surgical decompression of the L3-L4 level where the central canal now shows significantly improved patency. 2. Solidly fused L4-L5 level. 3. No other evidence for progressive or high-grade central canal stenosis though there does appear to be a mild degree of degenerative canal narrowing at L2-L3. 4. Multilevel degenerative foraminal stenosis. This is especially severe at L3-L4 left greater than right and also at L2-L3 left greater than right. Prominent but less severe foraminal stenosis also at L1-L2. 5. Chronic-appearing mild lateral recess narrowing and deformity on the left at L5-S1. 6. No unexpected enhancement, no clear CT evidence of tumor or infection. Amorphous enhancement is consistent with degenerative changes and prior surgery. Comment: The following findings are so common in adults without low back pain that while we report their presence, they must be interpreted with caution and in the context of the clinical situation. (Reference Vidhya et al, Spine 2001) Prevalence of findings in patients without low back pain: Disk degeneration (any evidence): 92% Disk desiccation/T2 signal loss: 83% Disk height loss: 56% Disk bulge: 64% Disk protrusion: 32% Annular tear/high intensity zone: 38% [facility]
== END 2018-03-10 23:59 ==
LOC: DI 17:30
PROVIDERS: ATTEND Physician Assistant
DX: M51.36 Other intervertebral disc degeneration, lumbar region (principal); M47.896 Other spondylosis, lumbar region; M48.061 Spinal stenosis, lumbar region without neurogenic claudication; M47.897 Other spondylosis, lumbosacral region; M43.16 Spondylolisthesis, lumbar region
CPT/HCPCS: 72158; A9585

== ENCOUNTER 2018-03-12 14:24 | Inpatient (IN) | payer MEDICARE, OTHER ==
--- NOTE | 2018-03-12 14:48 | ED Physician Documentation ---
PD HPI ABD PAIN - Stated complaint Stated Complaint: ABD PX - Chief complaint Chief Complaint: Abd Pain - History obtained from History obtained from: Patient - History of Present Illness Timing - onset: Other (She has a history of four-vessel bypass and chronic back pain. Recently on a short course of steroids about 2 weeks ago. She had been having dark and tarry stools and went to see her physician, and she had lab work done yesterday showing hemoglobin of 11.4 which is a little low for her. She had some abdominal bloating but no abdominal pain per se. She was very guaiac positive in the office and referred here for further evaluation and treatment. She has no history of GI bleeding and is not anticoagulated but does have a history of gastroparesis and hiatal hernia repair.) Review of Systems Ten Systems: 10 systems reviewed and negative Constitutional: denies: Fever, Chills, Fatigue Cardiac: denies: Chest pain / pressure, Palpitations Respiratory: denies: Dyspnea, Cough GI: reports: Abdominal Pain. 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 Cardiovascular: CABG - Present Medications Home Medications: Ambulatory Orders Medication Instructions Recorded Confirmed Folic Acid 1 mg PO DAILY 05/16/14 05/29/17 Aspirin [Aspir-Low] 81 mg DAILY 11/25/16 05/29/17 Blood Pressure Medication 05/29/17 Acetaminophen/Diphenhydramine 1 each PO 11/13/17 [Tylenol Pm Ex-Strength Caplet] Cholecalciferol (Vitamin D3) 5,000 unit PO 11/13/17 [Vitamin D3] Docusate Sodium [Colace Clear] 11/13/17 Meloxicam 7.5 mg PO 11/13/17 Mirtazapine 15 mg PO 11/13/17 Spironolactone 11/13/17 Tramadol HCl 50 mg PO 11/13/17 Valsartan [Diovan] 40 mg PO 11/13/17 diazePAM [Valium] 11/13/17 Dexamethasone [Decadron] 4 mg PO DAILY #5 tablet 02/26/18 Lidocaine Patch 5% [Lidoderm Patch] 1 each TOP DAILY #10 patch 02/26/18 Methocarbamol [Robaxin] 500 mg PO TID #15 tablet 02/26/18 - Allergies Allergies/Adverse Reactions: Allergies Allergy/AdvReac Type Severity Reaction Status Date / Time meperidine HCl * Allergy Severe Respiratory Verified 02/26/18 18:51 [From Demerol] pain meds Allergy Intermediate Nausea Uncoded 02/26/18 18:51 preservatives in lidocaine Allergy Intermediate Respiratory Uncoded 02/26/18 18: 51 preservatives in medications Allergy Intermediate Respiratory Uncoded 02/26/18 18:51 - Social History Does the pt smoke?: No Smoking Status: Never smoker Does the pt drink ETOH?: No Does the pt have substance abuse?: Yes - Family History Family history: reports: Non contributory - Immunizations Immunizations are current?: Yes - POLST Patient has POLST: Yes PD ED PE NORMAL - Vitals Vital signs reviewed: Yes - General General: Alert and oriented X 3, No acute distress - HEENT HEENT: PERRL, EOMI - Neck Neck: Supple, no meningeal sign, No bony TTP - Cardiac Cardiac: RRR, No murmur - Respiratory Respiratory: No respiratory distress, Clear bilaterally - Abdomen Abdomen: Normal bowel sounds, Soft, Non tender - Rectal Rectal: Deferred (Guaiac positive in the office) - Back Back: No CVA TTP, No spinal TTP - Extremities Extremities: No edema, No calf tenderness / cord - Neuro Neuro: Alert and oriented X 3, Normal speech Results - Vitals Vitals: Vital Signs - 24 hr 03/12/18 14:27 Temperature 36.3 C L Heart Rate 81 Respiratory 18 Rate Blood Pressure 124/58 L O2 Saturation 99 Oxygen O2 Source Room air - Labs Labs: Laboratory Tests 03/12/18 03/12/18 14:45 14:45 WBC 11.5 H RBC 3.37 L Hgb 10.5 L Hct 30.9 L MCV 91.8 MCH 31.2 H MCHC 34.0 RDW 13.6 Plt Count 213 MPV 8.8 Sodium 135 Potassium 4.0 Chloride 105 Carbon Dioxide 22 Anion Gap 8.0 BUN 38 H Creatinine 0.9 Estimated GFR (MDRD) 60 L Glucose 113 H Calcium 8.9 Total Bilirubin 0.5 AST 17 ALT 13 Alkaline Phosphatase 64 Total Protein 6.4 L Albumin 3.7 Globulin 2.7 Albumin/Globulin Ratio 1.4 Lipase 54 H PD MEDICAL DECISION MAKING - ED course ED course: This is an 82-year-old woman with no history of GI bleeding but with risk factors for ulcer disease including recent treatment with steroids and chronic aspirin use who presents with GI bleeding that is likely lower by history. Her hemoglobin which had been 14 and quite stable for quite some time was 11.4 yesterday and now 10.5 today indicating ongoing bleeding. She was administered Protonix IV and I called Dr. Juany Omalley, the on-call surgeon for consultation at 3:29 PM. He deferred to [facility] for admit- call Dr Mayfield for admit at [id number] - Sepsis Event Vital Signs: Vital Signs - 24 hr 03/12/18 14:27 Temperature 36.3 C L Heart Rate 81 Respiratory 18 Rate Blood Pressure 124/58 L O2 Saturation 99 Oxygen O2 Source Room air Departure - Departure Disposition: 66 [facility] DC/Xfdiane Clinical Impression: Upper GI bleeding Condition: Stable
[2018-03-12 15:01] LABS: HGB - HEMOGLOBIN 10.5 g/dL (12.0-16.0); MEAN CORPUSCULAR HEMOGLOBIN 31.2 pg (27.0-31.0); MEAN CORPUSCULAR VOLUME 91.8 fL (81.0-99.0); MEAN PLATELET VOLUME 8.8 fL (7.9-10.8); RED BLOOD COUNT 3.37 10^6/uL (4.20-5.40); RED CELL DISTRIBUTION WIDTH 13.6 % (12.0-15.0); WHITE BLOOD COUNT 11.5 x10^3/uL (4.8-10.8)
[2018-03-12 15:06] LABS: PT - PROTHROMBIN TIME 11.3 secs (9.9-12.6)
[2018-03-12 15:15] LABS: ALBUMIN 3.7 g/dL (3.2-5.5); ALBUMIN/GLOBULIN RATIO 1.4 (1.0-2.2); BILIRUBIN,TOTAL 0.5 mg/dL (0.2-1.0); CALCIUM 8.9 mg/dL (8.5-10.3); CREATININE 0.9 mg/dL (0.4-1.0); TOTAL PROTEIN 6.4 g/dL (6.7-8.2)
[2018-03-12] MEDS ORDERED: PANTOPRAZOLE 40 MG VIAL IVP STA (15:29)
[2018-03-12] MEDS ORDERED: ACETAMINOPHEN 325 MG TABLET PO PRN (15:38)
[2018-03-12] MEDS ORDERED: PROCHLORPERAZINE 10 MG/2 ML VIAL IVP PRN (15:38)
[2018-03-12] MEDS ORDERED: oxyCODONE 5 MG TABLET PO PRN ×2 (15:38)
[2018-03-12] MEDS ORDERED: PROMETHAZINE 25 MG/1 ML VIAL IM PRN (15:38)
[2018-03-12] MEDS ORDERED: SODIUM CHLORIDE FLUSH 0.9% 10 ML SYRINGE IVP PRN (15:38)
[2018-03-12] MEDS ORDERED: ONDANSETRON 4 MG/2 ML VIAL IVP PRN (15:38)
[2018-03-12] MEDS ORDERED: ZOLPIDEM 5 MG TABLET PO PRN (15:38)
[2018-03-12] MEDS: SODIUM CHLORIDE 0.9% 1,000 ML IV SCH (17:41)
[2018-03-12] MEDS: SODIUM CHLORIDE FLUSH 0.9% 10 ML SYRINGE IVP SCH (17:41)
--- NOTE | 2018-03-12 18:12 | CONSULTATION NOTE ---
Referring Provider Name of Referring Provider:: Dr. Mayfield Consult Date: 03/12/18 Chief Complaint - Chief Complaint Chief Complaint: melena History of Present Illness - Admitted From Admitted From:: ER - History Obtained From Records Reviewed: yes History obtained from: pt and records Exam Limitations: poor historian - History of Present Illness HPI Comment/Other: 82 yo female with several day hx of black tarry stools associated with dizziness and fatigue but no syncope, nausea but no emesis, no hematochezia, no prior similar sx, no recent wt loss, no abdominal pain, although she does note some abdominal bloating. She was noted to be anemic by her PCP and came in to the ER today for further evaluation and treatment. She has a hx of chronic back pain that has been treated exclusively with nonnarcotic therapy due to narcotic intolerance, and recent exacerbation of same has been treated with a course of oral steroids, plus meloxicam and pt has been supplementing with 1, 000 mg of aspirin TID for the past several weeks at least. No alcohol or tobacco. No hx PUD. And EGD/colonoscopy [address] Phelan was notable for atrophic gastritis and diverticulosis. She was advised to avoid NSAIDs at that time. She has a remote hx of antireflux surgery and has not had difficulty with vomiting or heartburn since. Neg FH GI tumors. She has been hemodynamically stable with no bm's since admission. History - Past Medical History Cardiovascular: reports: Congestive heart failure, Hypertension, Coronary artery disease Respiratory: reports: Shortness of breath Endocrine/Autoimmune: reports: Type 2 diabetes GI: reports: GERD, Hiatal hernia, Other (diverticulosis on colonoscopy 2016) : reports: Renal insuffiency HEENT: reports: Chronic hearing loss Psych: reports: Depression Musculoskeletal: reports: Osteoarthritis, Chronic back pain Derm: reports: Other MRSA Hx?: No - Past Surgical History General: reports: Cholecystectomy, Appendectomy, Hiatal hernia repair, Colonoscopy, EGD, Other Ortho: reports: Spine surgery, Amputation, 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, Oophrectomy Cardiovascular: reports: CABG, Coronary stent, Cardiac catheterization, Angioplasty - Family & Social History Family History Comment/Other: neg for CRC - Substance History Use: Uses substance without health or social issues: NONE - POLST Patient has POLST: Yes Meds/Allgy - Home Medications Home Medications: Ambulatory Orders Medication Instructions Recorded Confirmed Aspirin [Aspir-Low] 81 mg DAILY 11/25/16 03/12/18 Mirtazapine 45 mg PO QPM 11/13/17 03/12/18 Spironolactone 25 mg PO DAILY 11/13/17 03/12/18 Tramadol HCl 50 - 100 mg PO TID PRN 11/13/17 03/12/18 Valsartan [Diovan] 40 mg PO QPM 11/13/17 03/12/18 Acetaminophen/Diphenhydramine 1 tab PO QPM PRN 03/12/18 03/12/18 [Tylenol Pm Ex-Strength Caplet] Cholecalciferol [Vitamin D3] 5,000 units PO DAILY 03/12/18 03/12/18 Diazepam 1 - 2 mg PO DAILY PRN 03/12/18 03/12/18 Docusate Sodium 100 mg PO DAILY PRN 03/12/18 03/12/18 Folic Acid 400 mcg PO DAILY 03/12/18 03/12/18 Lidocaine Patch 5% [Lidoderm Patch] 1 patch TOP DAILY PRN 03/12/18 03/12/18 Nitroglycerin [Nitrostat] 0.4 mg PO Q5M PRN 03/12/18 03/12/18 Red Yeast Rice 1,200 mg PO DAILY 03/12/18 03/12/18 Triamcinolone 0.1% Cream [Kenalog 1 applic TOP BID PRN 03/12/18 03/12/18 0.1% Cream] Ubidecarenone [Co Q-10] 10 mg PO DAILY 03/12/18 03/12/18 - Allergies Allergies/Adverse Reactions: Allergies Allergy/AdvReac Type Severity Reaction Status Date / Time meperidine HCl * Allergy Severe Respiratory Verified 02/26/18 18:51 [From Demerol] pain meds Allergy Intermediate Nausea Uncoded 02/26/18 18:51 preservatives in lidocaine Allergy Intermediate Respiratory Uncoded 02/26/18 18: 51 preservatives in medications Allergy Intermediate Respiratory Uncoded 02/26/18 18:51 Review of Systems - Constitutional Constitutional: reports: Fatigue, Weakness. denies: Fever, Chills, Weight gain , Weight loss - Cardiovascular Cariovascular: reports: Decr. exercise tolerance. denies: Chest pain, Syncope - Respiratory Respiratory: denies: Cough - Gastrointestinal Gastrointestinal: reports: Abdominal distention, Change in bowel habits, Black stools, Nausea, Bloating. denies: Abdominal pain, Constipation, Diarrhea, Rectal bleeding, Bloody stools, Vomiting, Reflux/heartburn - Musculoskeletal Musculoskeletal: reports: Back pain - Hematologic/Lymphatic Hematologic/Lymphatic: denies: Bleeding tendencies - All Other Systems All Other Systems: reports: Reviewed and negative Exam - Vital Signs Reviewed Vital Signs: Yes Vital Signs: Vital Signs x48h Temp Pulse Resp BP Pulse Ox 03/12/18 17:47 36.4 C L 67 20 100/83 H 100 - Physical Exam General Appearance: positive: No acute distress, Alert Eyes Bilateral: positive: Normal inspection, Conjunctivae nml, No scleral icterus ENT: positive: ENT inspection nml, Pharynx nml, No signs of dehydration Neck: positive: Nml inspection, No JVD. negative: Lymphadenopathy (R), Lymphadenopathy (L) Respiratory: positive: Chest non-tender, No respiratory distress Cardiovascular: positive: Regular rate & rhythm, No gallop, Systolic murmur (4/6 ) Abdomen: positive: Non-tender, No organomegaly, Nml bowel sounds, No distention , Mass (large infusion pump in abdominal wall RUQ) Skin: positive: Color nml, No rash, Warm Extremities: positive: Non-tender, No pedal edema. negative: Calf tenderness Neurologic/Psychiatric: positive: Oriented x3 Conclusion/Plan - Diagnosis Diagnosis: GI bleed; likely upper given use of steroids, NSAIDs, likely due to PUD, NSAID gastropathy, doubt neoplasm, varices, H. pylori, lower gi source, but also possible. - Plan Plan: Agree with empiric therapy with PPI therapy, NPO, EGD in AM. PAR conf with pt and consent obtained. IF EGD neg, will also need colonoscopy. - Lab Results Lab results reviewed: Yes Fish Bones: 03/12/18 14:45 03/12/18 14:45
--- NOTE | 2018-03-12 18:34 | HISTORY & PHYSICAL EXAMINATION ---
Chief Complaint - Chief Complaint Chief Complaint: Black, tarry stools History of Present Illness - Admitted From Admitted From:: Emergency department - History Obtained From Records Reviewed: Yes History obtained from: Patient Exam Limitations: None - History of Present Illness HPI Comment/Other: Patient is a 82-year-old female with a past medical history significant for coronary artery disease status post CABG, diabetes, depression and chronic back pain who presented to the emergency department with a chief complaint of black, tarry stools. The patient recently had an exacerbation of her back pain and was placed on a 5 day course of dexamethasone about 2 weeks ago. The patient states that she also takes aspirin and NSAIDs on and off for her back pain. She states that for the last 3 days she has noticed she has been having dark tarry stools for which she went to go see her primary care physician. She states they may have been that way for longer but she just noticed them 3 days ago. Her primary care physician performed a lab test showing that her hemoglobin was down to 11.4 from a baseline of 14.5. She also had a guaiac test performed yesterday. She states that today she has been noticing some abdominal bloating but denied any abdominal pain. She does admit that she has been feeling lightheaded for the last several days. She states she has vertigo but this feeling is different. She was called from her primary care physician' s office as she had a positive stool guaiac and was told to come into the emergency department. She states that she has no prior history of GI bleed and is not on any anticoagulation. She denies any alcohol use or tobacco use. She denies any abdominal pain, nausea, vomiting, bloody stools, hematuria or hematemesis. Patient denies any headaches, blurred vision, runny nose, sore throat, nasal congestion, difficulty swallowing, fevers, chills, cough, shortness of air, orthopnea, PND, increased lower extremity swelling, diarrhea, constipation, chest pain, dysuria, increased urinary frequency, polyuria, polydipsia, increased joint swelling, neck stiffness, hair loss, recent rash, night sweats, change in appetite or any focal neurologic deficits. On presentation to the emergency department the patient was afebrile and vital signs were stable. The patient underwent routine lab work which did reveal a hemoglobin of 10.5 which was decreased from yesterday when it was 11.5. The patient did have a positive stool guaiac. Remainder of the patient's lab work was within normal limits. The emergency room physician spoke with the surgeon computer applications engineer Dr. Donny Omalley who asked that the hospitalist team admit the patient and that he would take her for EGD in the morning. The patient was admitted to the [facility] for likely upper GI bleed. 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 She lives alone and previously lived with her who a few years ago, they had been for 50 years. She is independent in all her activities of daily living. She still drives. She is [place]. She is a jewish. She does have caregivers for a few hours a week. She is a non-smoker. She does not drink alcohol. She denies any other illicit drug use. - POLST Patient has POLST: Yes POLST Status: Full Code Meds/Allgy - Home Medications Home Medications: Ambulatory Orders Medication Instructions Recorded Confirmed Aspirin [Aspir-Low] 81 mg DAILY 11/25/16 03/12/18 Mirtazapine 45 mg PO QPM 11/13/17 03/12/18 Spironolactone 25 mg PO DAILY 11/13/17 03/12/18 Tramadol HCl 50 - 100 mg PO TID PRN 11/13/17 03/12/18 Valsartan [Diovan] 40 mg PO QPM 11/13/17 03/12/18 Acetaminophen/Diphenhydramine 1 tab PO QPM PRN 03/12/18 03/12/18 [Tylenol Pm Ex-Strength Caplet] Cholecalciferol [Vitamin D3] 5,000 units PO DAILY 03/12/18 03/12/18 Diazepam 1 - 2 mg PO DAILY PRN 03/12/18 03/12/18 Docusate Sodium 100 mg PO DAILY PRN 03/12/18 03/12/18 Folic Acid 400 mcg PO DAILY 03/12/18 03/12/18 Lidocaine Patch 5% [Lidoderm Patch] 1 patch TOP DAILY PRN 03/12/18 03/12/18 Nitroglycerin [Nitrostat] 0.4 mg PO Q5M PRN 03/12/18 03/12/18 Red Yeast Rice 1,200 mg PO DAILY 03/12/18 03/12/18 Triamcinolone 0.1% Cream [Kenalog 1 applic TOP BID PRN 03/12/18 03/12/18 0.1% Cream] Ubidecarenone [Co Q-10] 10 mg PO DAILY 03/12/18 03/12/18 - Allergies Allergies/Adverse Reactions: Allergies Allergy/AdvReac Type Severity Reaction Status Date / Time meperidine HCl * Allergy Severe Respiratory Verified 02/26/18 18:51 [From Demerol] pain meds Allergy Intermediate Nausea Uncoded 02/26/18 18:51 preservatives in lidocaine Allergy Intermediate Respiratory Uncoded 02/26/18 18: 51 preservatives in medications Allergy Intermediate Respiratory Uncoded 02/26/18 18:51 Review of Systems - Other Findings Other Findings: A comprehensive review of systems was performed the pertinent positives and negatives are stated above in the HPI and the remainder of the review of systems is negative. Exam - Vital Signs Reviewed Vital Signs: Yes Vital Signs: Vital Signs x48h Temp Pulse Resp BP Pulse Ox 03/12/18 17:47 36.4 C L 67 20 100/83 H 100 - Physical Exam General Appearance: positive: No acute distress, Alert Eyes Bilateral: positive: Normal inspection, PERRL ENT: positive: ENT inspection nml, Pharynx nml, No signs of dehydration Neck: positive: Nml inspection, Thyroid nml, No JVD, Trachea midline Respiratory: positive: Chest non-tender, No respiratory distress, Breath sounds nml Cardiovascular: positive: Regular rate & rhythm, No murmur, No gallop Peripheral Pulses: positive: 2+ Abdomen: positive: Non-tender, No organomegaly, Nml bowel sounds, No distention Back: positive: Nml inspection Skin: positive: Color nml, No rash, Warm, Dry Extremities: positive: Non-tender, Full ROM, Nml appearance Neurologic/Psychiatric: positive: Oriented x3, Mood/affect nml Conclusion/Plan - Problem List (1) Upper GI bleeding Conclusion/Plan: Patient presents to the emergency department with melena after receiving a 5 day course of dexamethasone for chronic back pain exacerbation. She also takes NSAIDs off and on and takes aspirin. The patient has been having dark tarry stools for several days and saw her primary care physician yesterday when her hemoglobin was found to be 11.5 down from 14.5. She was found to have a positive stool guaiac and on presentation to the emergency department today was lightheaded and hemoglobin was down to 10.5. The patient was hemodynamically stable. Given her recent steroid use and history of NSAID and aspirin use with dark stools this is likely an upper GI bleed from gastritis or gastric ulcer. The patient is not on any anticoagulation. She has no history of previous GI bleed. Plan: Place 2 large-bore IVs H&H every 6 hours Transfuse if hemoglobin less than 7 or patient actively bleeding with hemodynamic instability Surgery consult for EGD Protonix IV twice daily Stop aspirin, NSAIDs and all steroids. N.p.o. after midnight (2) Chronic back pain Conclusion/Plan: Patient has history of chronic back pain and uses tramadol, aspirin, NSAIDs off and on at home. She is recently on a course of steroids for exacerbation of her back pain. She also uses a lidocaine patch. She also uses Tylenol. Since patient is likely having an upper GI bleed we will hold off on giving her any NSAIDs, aspirin or steroids. Plan: Patient be placed on Tylenol and oxycodone as needed Qualifiers: Back pain location: low back pain Back pain laterality: bilateral Sciatica presence: unspecified whether sciatica present Qualified Code(s): M54.5 - Low back pain; G89.29 - Other chronic pain; G89.29 - Other chronic pain (3) Hypertension Conclusion/Plan: Patient is a history of hypertension and patient's blood pressure is borderline low on presentation. She is not having a large bleed but we will be cautious with giving her her home blood pressure medications for now. Will monitor blood pressure and titrate medications as needed . Qualifiers: Hypertension type: essential hypertension Qualified Code(s): I10 - Essential (primary) hypertension (4) Diabetes Conclusion/Plan: Patient is a history of diabetes which is diet controlled. Patient's blood glucose is 113 on presentation. She is not on any diabetic medications or insulin at home. We will not place the patient on sliding scale insulin and will just monitor glucose daily. Qualifiers: Diabetes mellitus type: type 2 Diabetes mellitus assisted insulin use: without manager intermediate use - Lab Results Lab results reviewed: Yes Fish Bones: 03/12/18 14:45 03/12/18 14:45 Other Lab Results: Laboratory Results WBC 11.5 x10^3/uL (4.8-10.8) H 03/12/18 14:45 RBC 3.37 10^6/uL (4.20-5.40) L 03/12/18 14:45 Hgb 10.5 g/dL (12.0-16.0) L 03/12/18 14:45 Hct 30.9 % (37.0-47.0) L 03/12/18 14:45 MCV 91.8 fL (81.0-99.0) 03/12/18 14:45 MCH 31.2 pg (27.0-31.0) H 03/12/18 14:45 MCHC 34.0 g/dL (32.0-36.0) 03/12/18 14:45 RDW 13.6 % (12.0-15.0) 03/12/18 14:45 Plt Count 213 10^3/uL (130-450) 03/12/18 14:45 MPV 8.8 fL (7.9-10.8) 03/12/18 14:45 PT 11.3 secs (9.9-12.6) 03/12/18 14:45 INR 1.0 (0.8-1.2) 03/12/18 14:45 APTT 26.1 secs (24.9-33.3) 03/12/18 14:45 Sodium 135 mmol/L (135-145) 03/12/18 14:45 Potassium 4.0 mmol/L (3.5-5.0) 03/12/18 14:45 Chloride 105 mmol/L (101-111) 03/12/18 14:45 Carbon Dioxide 22 mmol/L (21-32) 03/12/18 14:45 Anion Gap 8.0 (6-13) 03/12/18 14:45 BUN 38 mg/dL (6-20) H 03/12/18 14:45 Creatinine 0.9 mg/dL (0.4-1.0) 03/12/18 14:45 Estimated GFR (MDRD) 60 (>89) L 03/12/18 14:45 Glucose 113 mg/dL (70-100) H 03/12/18 14:45 Calcium 8.9 mg/dL (8.5-10.3) 03/12/18 14:45 Total Bilirubin 0.5 mg/dL (0.2-1.0) 03/12/18 14:45 AST 17 IU/L (10-42) 03/12/18 14:45 ALT 13 IU/L (10-60) 03/12/18 14:45 Alkaline Phosphatase 64 IU/L (42-121) 03/12/18 14:45 Total Protein 6.4 g/dL (6.7-8.2) L 03/12/18 14:45 Albumin 3.7 g/dL (3.2-5.5) 03/12/18 14:45 Globulin 2.7 g/dL (2.1-4.2) 03/12/18 14:45 Albumin/Globulin Ratio 1.4 (1.0-2.2) 03/12/18 14:45 Lipase 54 U/L (22-51) H 03/12/18 14:45 Blood Type O POSITIVE 03/12/18 15:35 Antibody Screen NEGATIVE 03/12/18 15:35 Crossmatch IS Only See Detail 03/12/18 15:35 Core Measures - Anticipated LOS I expect patient to be DC'd or transferred within 96 hours.: Yes - DVT/VTE - Prophylaxis VTE/DVT Device ordered at admit?: Yes
[2018-03-12] MEDS ORDERED: MIRTAZAPINE 15 MG TABLET PO SCH (21:00)
[2018-03-12] MEDS: PANTOPRAZOLE 40 MG VIAL IVP SCH (21:08)
[2018-03-12 21:43] LABS: BASOPHILS # (AUTO) 0.1 10^3/uL (0.0-0.1); EOSINOPHILS # (AUTO) 0.3 10^3/uL (0.0-0.7); EOSINOPHILS % (AUTO) 3.8 %; HGB - HEMOGLOBIN 9.1 g/dL (12.0-16.0); LYMPHOCYTES # (AUTO) 2.9 10^3/uL (1.5-3.5); LYMPHOCYTES % (AUTO) 34.1 %; MEAN CORPUSCULAR HEMOGLOBIN 31.4 pg (27.0-31.0); MEAN CORPUSCULAR HGB CONC 34.8 g/dL (32.0-36.0); MEAN CORPUSCULAR VOLUME 90.4 fL (81.0-99.0); MEAN PLATELET VOLUME 8.4 fL (7.9-10.8); MONOCYTES # (AUTO) 0.5 10^3/uL (0.0-1.0); MONOCYTES % (AUTO) 5.4 %; NEUTROPHILS # (AUTO) 4.8 10^3/uL (1.5-6.6); NEUTROPHILS % (AUTO) 55.7 %; PLT - PLATELET COUNT 176 10^3/uL (130-450); RED CELL DISTRIBUTION WIDTH 13.2 % (12.0-15.0); WHITE BLOOD COUNT 8.5 x10^3/uL (4.8-10.8)
[2018-03-12] MEDS ORDERED: METHOCARBAMOL 500 MG TABLET PO SCH (22:00)
[2018-03-13] MEDS: SODIUM CHLORIDE FLUSH 0.9% 10 ML SYRINGE IVP SCH ×2 (01:16→09:47)
[2018-03-13 03:53] LABS: BASOPHILS # (AUTO) 0.1 10^3/uL (0.0-0.1); BASOPHILS % (AUTO) 1.3 %; EOSINOPHILS # (AUTO) 0.4 10^3/uL (0.0-0.7); EOSINOPHILS % (AUTO) 5.3 %; HGB - HEMOGLOBIN 8.7 g/dL (12.0-16.0); LYMPHOCYTES # (AUTO) 2.6 10^3/uL (1.5-3.5); MEAN CORPUSCULAR HEMOGLOBIN 31.1 pg (27.0-31.0); MEAN CORPUSCULAR HGB CONC 34.4 g/dL (32.0-36.0); MEAN CORPUSCULAR VOLUME 90.4 fL (81.0-99.0); MEAN PLATELET VOLUME 8.5 fL (7.9-10.8); MONOCYTES # (AUTO) 0.4 10^3/uL (0.0-1.0); NEUTROPHILS # (AUTO) 3.5 10^3/uL (1.5-6.6); NEUTROPHILS % (AUTO) 50.4 %; PLT - PLATELET COUNT 159 10^3/uL (130-450); RED CELL DISTRIBUTION WIDTH 13.5 % (12.0-15.0)
[2018-03-13 04:02] LABS: PT - PROTHROMBIN TIME 11.7 secs (9.9-12.6)
[2018-03-13] MEDS: SODIUM CHLORIDE 0.9% 1,000 ML IV SCH (04:07)
[2018-03-13 04:08] LABS: ALBUMIN 3.2 g/dL (3.2-5.5); ALBUMIN/GLOBULIN RATIO 1.8 (1.0-2.2); BILIRUBIN,TOTAL 0.5 mg/dL (0.2-1.0); CALCIUM 8.2 mg/dL (8.5-10.3); CREATININE 0.7 mg/dL (0.4-1.0)
[2018-03-13] MEDS ORDERED: LACTATED RINGERS 1,000 ML IV ONE ×2 (07:37)
[2018-03-13] MEDS ORDERED: LIDO GARGLE 30 ML BOTTLE ONE (07:38)
[2018-03-13] MEDS ORDERED: LIDO GARGLE 30 ML BOTTLE PO ONE ×2 (07:40→08:19)
[2018-03-13] MEDS ORDERED: fentaNYL 100 MCG/2 ML VIAL ONE (08:20)
[2018-03-13] MEDS ORDERED: PROPOFOL 200 MG/20 ML VIAL IVP ONE (08:27)
[2018-03-13] MEDS ORDERED: LIDOCAINE PATCH 5% TOP PRN (09:00)
[2018-03-13] MEDS ORDERED: FOLIC ACID 1 MG TABLET PO SCH (09:00)
[2018-03-13] MEDS ORDERED: LOSARTAN 50 MG TABLET PO SCH (09:00)
[2018-03-13] MEDS ORDERED: SPIRONOLACTONE 25 MG TABLET PO SCH (09:00)
[2018-03-13] MEDS ORDERED: POLYETHYLENE GLYCOL 3350 17 GM PACKET PO SCH (09:00)
[2018-03-13] MEDS: PANTOPRAZOLE 40 MG VIAL IVP SCH (09:47)
[2018-03-13 09:49] LABS: BASOPHILS # (AUTO) 0.1 10^3/uL (0.0-0.1); EOSINOPHILS # (AUTO) 0.3 10^3/uL (0.0-0.7); EOSINOPHILS % (AUTO) 4.8 %; HGB - HEMOGLOBIN 8.9 g/dL (12.0-16.0); LYMPHOCYTES # (AUTO) 1.5 10^3/uL (1.5-3.5); MEAN CORPUSCULAR HEMOGLOBIN 31.3 pg (27.0-31.0); MEAN CORPUSCULAR HGB CONC 34.6 g/dL (32.0-36.0); MEAN CORPUSCULAR VOLUME 90.6 fL (81.0-99.0); MEAN PLATELET VOLUME 8.5 fL (7.9-10.8); MONOCYTES # (AUTO) 0.3 10^3/uL (0.0-1.0); MONOCYTES % (AUTO) 5.4 %; NEUTROPHILS # (AUTO) 3.8 10^3/uL (1.5-6.6); NEUTROPHILS % (AUTO) 63.8 %; PLT - PLATELET COUNT 154 10^3/uL (130-450); RED BLOOD COUNT 2.83 10^6/uL (4.20-5.40); RED CELL DISTRIBUTION WIDTH 13.1 % (12.0-15.0); WHITE BLOOD COUNT 5.9 x10^3/uL (4.8-10.8)
--- NOTE | 2018-03-13 12:12 | Discharge Plan ---
Discharge Plan Disposition: 01 Home, Self Care Condition: Stable Prescriptions: Pantoprazole [Protonix] 40 mg PO BID #120 tablet Diet: Regular (Avoid spicy and greasy foods) Activity Restrictions: No Restrictions Shower Restrictions: No Driving Restrictions: No Additional Instructions or Follow Up instructions: You presented to our emergency department with complaint of black tarry stools. You were found to have a upper GI bleed. Your hemoglobin dropped from 14.2 down to 8.7 but you did not require a blood transfusion. You underwent an EGD and were found to have 2 nonbleeding ulcers in her stomach to which he received treatment with cauterization. Bleeding has stopped and you are stable. You will need to follow-up with Dr. Donny Omalley general surgery in 1 week and will need a follow-up endoscopy. Please avoid all non-steroid anti-inflammatory drugs. You will be continued on Protonix 40 mg twice a day which you should continue for the next 3 months. You had biopsies done of your stomach which have been sent for pathology and the report will be sent to Dr. Omalley. He should have the report at your follow-up appointment. Please avoid aspirin for the next 7 days and also avoid spicy and greasy foods. If you start having black tarry stools or blood in her stools again please return to the emergency department. No Smoking: If you smoke, Please STOP! Call for help. Follow-up with: Marjorie Tapia PA [Primary Care Provider] -
--- NOTE | 2018-03-13 12:19 | DISCHARGE SUMMARY ---
"Discharge Summary Admit Date: 03/12/18 Discharge Date: 03/13/18 Discharging Provider: Ronny Mayfield MD Primary Care Provider: Marjorie Tapia MD Code Status: Attempt Resuscitation Condition at Discharge: Stable Discharge Disposition: 01 Home, Self Care - DIAGNOSES Admission Diagnoses: 1. Upper GI bleeding 2. Chronic back pain 3. Hypertension 4. Diabetes type 2 without long-term insulin use Discharge Diagnoses with Status of Each Condition: 1. Upper GI bleeding: Resolved 2. Gastric ulcers: Stable 3. Chronic back pain: Stable 4. Hypertension: Stable 5. Diabetes type 2 without long-term insulin use: Stable - HPI History of Present Illness: Patient is a 82-year-old female with a past medical history significant for coronary artery disease status post CABG, diabetes, depression and chronic back pain who presented to the emergency department with a chief complaint of black, tarry stools. The patient recently had an exacerbation of her back pain and was placed on a 5 day course of dexamethasone about 2 weeks ago. The patient states that she also takes aspirin and NSAIDs on and off for her back pain. She states that for the last 3 days she has noticed she has been having dark tarry stools for which she went to go see her primary care physician. She states they may have been that way for longer but she just noticed them 3 days ago. Her primary care physician performed a lab test showing that her hemoglobin was down to 11.4 from a baseline of 14.5. She also had a guaiac test performed yesterday. She states that today she has been noticing some abdominal bloating but denied any abdominal pain. She does admit that she has been feeling lightheaded for the last several days. She states she has vertigo but this feeling is different. She was called from her primary care physician' s office as she had a positive stool guaiac and was told to come into the emergency department. She states that she has no prior history of GI bleed and is not on any anticoagulation. She denies any alcohol use or tobacco use. She denies any abdominal pain, nausea, vomiting, bloody stools, hematuria or hematemesis. Patient denies any headaches, blurred vision, runny nose, sore throat, nasal congestion, difficulty swallowing, fevers, chills, cough, shortness of air, orthopnea, PND, increased lower extremity swelling, diarrhea, constipation, chest pain, dysuria, increased urinary frequency, polyuria, polydipsia, increased joint swelling, neck stiffness, hair loss, recent rash, night sweats, change in appetite or any focal neurologic deficits. On presentation to the emergency department the patient was afebrile and vital signs were stable. The patient underwent routine lab work which did reveal a hemoglobin of 10.5 which was decreased from yesterday when it was 11.5. The patient did have a positive stool guaiac. Remainder of the patient's lab work was within normal limits. The emergency room physician spoke with the surgeon stone polisher Dr. Donny Omalley who asked that the hospitalist team admit the patient and that he would take her for EGD in the morning. The patient was admitted to the [facility] for likely upper GI bleed. - CONSULTS | PROCEDURES Consultations: General surgery: Donny Omalley MD Procedures: Endoscopy Findings: 1. Niesen fundoplication was found at the gastroesophageal junction. 2. Single nonbleeding ulcer, ranging between 5-9 mm in size, was found in the gastric antrum and on the lesser curvature of the stomach; biopsies were taken 3. Single nonbleeding ulcer ranging between 5-9 cm in size, was found on the lesser curvature of the stomach and in the gastric antrum; bipolar cautery with a 7 Panamanian probe was applied to the site for 2 seconds; with good treatment effect. - HOSPITAL COURSE Hospital Course: The patient was admitted to the [facility] and hemoglobin was monitored overnight. Patient's hemoglobin dropped from 14.2 in October 2017 down to 10.5 on presentation and down to 8.9 by the time of discharge. The patient had no further episodes of bleeding while she was hospitalized. She underwent an EGD which revealed 2 nonbleeding ulcers both of which were cauterized and biopsies were taken. The patient was treated with IV Protonix and then switch to oral Protonix at discharge. The patient was advised to stop taking NSAIDs, hold off on steroids and aspirin for now. The patient was in stable condition and discharged home to follow-up with surgery in 1 week for biopsy results and to schedule a follow-up EGD. The patient did not require any blood transfusions as her blood pressure and heart rate remained stable and she had no significant bleeding while she was hospitalized. - ALLERGIES Allergies/Adverse Reactions: Allergies Allergy/AdvReac Type Severity Reaction Status Date / Time meperidine HCl * Allergy Severe Respiratory Verified 02/26/18 18:51 [From Demerol] pain meds Allergy Intermediate Nausea Uncoded 02/26/18 18:51 preservatives in lidocaine Allergy Intermediate Respiratory Uncoded 02/26/18 18: 51 preservatives in medications Allergy Intermediate Respiratory Uncoded 02/26/18 18:51 - MEDICATIONS Home Medications: Ambulatory Orders Medication Instructions Recorded Confirmed Mirtazapine 45 mg PO QPM 11/13/17 03/12/18 Spironolactone 25 mg PO DAILY 11/13/17 03/12/18 Tramadol HCl 50 - 100 mg PO TID PRN 11/13/17 03/12/18 Valsartan [Diovan] 40 mg PO QPM 11/13/17 03/12/18 Acetaminophen/Diphenhydramine 1 tab PO QPM PRN 03/12/18 03/12/18 [Tylenol Pm Ex-Strength Caplet] Cholecalciferol [Vitamin D3] 5,000 units PO DAILY 03/12/18 03/12/18 Diazepam 1 - 2 mg PO DAILY PRN 03/12/18 03/12/18 Docusate Sodium 100 mg PO DAILY PRN 03/12/18 03/12/18 Folic Acid 400 mcg PO DAILY 03/12/18 03/12/18 Lidocaine Patch 5% [Lidoderm Patch] 1 patch TOP DAILY PRN 03/12/18 03/12/18 Nitroglycerin [Nitrostat] 0.4 mg PO Q5M PRN 03/12/18 03/12/18 Red Yeast Rice 1,200 mg PO DAILY 03/12/18 03/12/18 Triamcinolone 0.1% Cream [Kenalog 1 applic TOP BID PRN 03/12/18 03/12/18 0.1% Cream] Ubidecarenone [Co Q-10] 10 mg PO DAILY 03/12/18 03/12/18 Pantoprazole [Protonix] 40 mg PO BID #120 tablet 03/13/18 - PHYSICAL EXAM AT DISCHARGE General Appearance: positive: No acute distress, Alert Eyes Bilateral: positive: Normal inspection, PERRL, EOMI, No lid inflammation, Conjunctivae nml, No scleral icterus ENT: positive: ENT inspection nml, Pharynx nml, No signs of dehydration. negative: Purulent nasal drainage, Pharyngeal erythema, Oral lesions Neck: positive: Nml inspection, Thyroid nml, No JVD, Trachea midline. negative : Thyromegaly, Lymphadenopathy (R), Lymphadenopathy (L), Carotid bruit, Tracheal deviation Respiratory: positive: Chest non-tender, No respiratory distress, Breath sounds nml. negative: Wheezes, Rales, Rhonchi Cardiovascular: positive: Regular rate & rhythm, No murmur, No gallop Peripheral Pulses: positive: 2+ Abdomen: positive: Non-tender, No organomegaly, Nml bowel sounds, No distention. negative: Guarding, Rebound, Hepatomegaly Back: positive: Nml inspection. negative: CVA tenderness (R), CVA tenderness (L ) Skin: positive: Color nml, No rash, Warm. negative: Cyanosis, Diaphoresis, Pallor Extremities: positive: Non-tender, Full ROM, Nml appearance, No pedal edema Neurologic/Psychiatric: positive: Oriented x3, CN's nml (2-12), Motor nml, Sensation nml, Mood/affect nml - LABS Result Diagrams: 03/13/18 09:38 03/13/18 03:45 Other Lab Results: Laboratory Tests 03/12/18 03/12/18 03/12/18 14:45 14:45 14:45 WBC 11.5 H RBC 3.37 L Hgb 10.5 L Hct 30.9 L MCV 91.8 MCH 31.2 H MCHC 34.0 RDW 13.6 Plt Count 213 MPV 8.8 Neut # (Auto) Lymph # (Auto) [place] # (Auto) Eos # (Auto) Baso # (Auto) Absolute Nucleated RBC Nucleated RBC % PT 11.3 INR 1.0 APTT 26.1 Sodium 135 Potassium 4.0 Chloride 105 Carbon Dioxide 22 Anion Gap 8.0 BUN 38 H Creatinine 0.9 Estimated GFR (MDRD) 60 L Glucose 113 H Calcium 8.9 Total Bilirubin 0.5 AST 17 ALT 13 Alkaline Phosphatase 64 Total Protein 6.4 L Albumin 3.7 Globulin 2.7 Albumin/Globulin Ratio 1.4 Lipase 54 H Blood Type Blood Type Recheck Antibody Screen Crossmatch IS Only 03/12/18 03/12/18 03/12/18 15:35 21:37 21:37 WBC 8.5 RBC 2.90 L Hgb 9.1 L Hct 26.3 L MCV 90.4 MCH 31.4 H MCHC 34.8 RDW 13.2 Plt Count 176 MPV 8.4 Neut # (Auto) 4.8 Lymph # (Auto) 2.9 [place] # (Auto) 0.5 Eos # (Auto) 0.3 Baso # (Auto) 0.1 Absolute Nucleated RBC 0.00 Nucleated RBC % 0.0 PT INR APTT Sodium Potassium Chloride Carbon Dioxide Anion Gap BUN Creatinine Estimated GFR (MDRD) Glucose Calcium Total Bilirubin AST ALT Alkaline Phosphatase Total Protein Albumin Globulin Albumin/Globulin Ratio Lipase Blood Type O POSITIVE Blood Type Recheck O POSITIVE Antibody Screen NEGATIVE Crossmatch IS Only See Detail 03/13/18 03/13/18 03/13/18 03:45 03:45 03:45 WBC 7.0 RBC 2.80 L Hgb 8.7 L Hct 25.3 L MCV 90.4 MCH 31.1 H MCHC 34.4 RDW 13.5 Plt Count 159 MPV 8.5 Neut # (Auto) 3.5 Lymph # (Auto) 2.6 [place] # (Auto) 0.4 Eos # (Auto) 0.4 Baso # (Auto) 0.1 Absolute Nucleated RBC 0.00 Nucleated RBC % 0.0 PT 11.7 INR 1.0 APTT Sodium 138 Potassium 3.9 Chloride 109 Carbon Dioxide 23 Anion Gap 6.0 BUN 25 H Creatinine 0.7 Estimated GFR (MDRD) 81 L Glucose 101 H Calcium 8.2 L Total Bilirubin 0.5 AST 18 ALT 12 Alkaline Phosphatase 54 Total Protein 5.0 L Albumin 3.2 Globulin 1.8 L Albumin/Globulin Ratio 1.8 Lipase Blood Type Blood Type Recheck Antibody Screen Crossmatch IS Only 03/13/18 09:38 WBC 5.9 RBC 2.83 L Hgb 8.9 L Hct 25.6 L MCV 90.6 MCH 31.3 H MCHC 34.6 RDW 13.1 Plt Count 154 MPV 8.5 Neut # (Auto) 3.8 Lymph # (Auto) 1.5 [place] # (Auto) 0.3 Eos # (Auto) 0.3 Baso # (Auto) 0.1 Absolute Nucleated RBC 0.00 Nucleated RBC % 0.0 PT INR APTT Sodium Potassium Chloride Carbon Dioxide Anion Gap BUN Creatinine Estimated GFR (MDRD) Glucose Calcium Total Bilirubin AST ALT Alkaline Phosphatase Total Protein Albumin Globulin Albumin/Globulin Ratio Lipase Blood Type Blood Type Recheck Antibody Screen Crossmatch IS Only - DIAGNOSTIC IMAGING Diagnostic Imaging Results: Final report reviewed Diagnostic Imaging Results Comments: Endoscopy Findings: 1. Niesen fundoplication was found at the gastroesophageal junction. 2. Single nonbleeding ulcer, ranging between 5-9 mm in size, was found in the gastric antrum and on the lesser curvature of the stomach; biopsies were taken 3. Single nonbleeding ulcer ranging between 5-9 cm in size, was found on the lesser curvature of the stomach and in the gastric antrum; bipolar cautery with a 7 Panamanian probe was applied to the site for 2 seconds; with good treatment effect. - FOLLOW UP Follow Up: Recommendations from surgery were to avoid nonsteroidal anti-inflammatory drugs , continue PPI twice daily 30 minutes before a meal, follow-up pathology from biopsy and resume diet. They also recommended holding aspirin for the next 7 days and to follow-up with Dr. Donny Omalley in 1 week. The patient was found to have 2 gastric ulcers which were nonbleeding. Patient appeared to stabilize and did not have any further bleeding during the hospitalization. She was given a prescription for Protonix 40 mg twice a day. - TIME SPENT Time Spent in Discharge (Minutes): 45"
[2018-03-13 12:26] VITALS: BP 119/53
== END 2018-03-13 13:17 | disposition home or self-care (01) | DRG 378 ==
LOC: ED 14:24 → MS2 15:38
PROVIDERS: ADMIT Internal Medicine; ATTEND Internal Medicine
PROC: 0DB68ZX Excision of Stomach, Via Natural or Artificial Opening Endoscopic, Diagnostic (ICD-10-PCS; 2018-03-13)
PROC: 0DB78ZX Excision of Stomach, Pylorus, Via Natural or Artificial Opening Endoscopic, Diagnostic (ICD-10-PCS; 2018-03-13)
PROC: 0W3P8ZZ Control Bleeding in Gastrointestinal Tract, Via Natural or Artificial Opening Endoscopic (ICD-10-PCS; principal; 2018-03-13 08:00)
DX: K92.2 Gastrointestinal hemorrhage, unspecified (principal); R19.5 Other fecal abnormalities; D64.9 Anemia, unspecified; K25.4 Chronic or unspecified gastric ulcer with hemorrhage; D62 Acute posthemorrhagic anemia; M54.9 Dorsalgia, unspecified; I95.9 Hypotension, unspecified; T38.0X5A Adverse effect of glucocorticoids and synthetic analogues, initial encounter; T39.395A Adverse effect of other nonsteroidal anti-inflammatory drugs [NSAID], initial encounter; T39.015A Adverse effect of aspirin, initial encounter; M54.5 Low back pain; G89.29 Other chronic pain; E11.9 Type 2 diabetes mellitus without complications; I25.10 Atherosclerotic heart disease of native coronary artery without angina pectoris; I11.0 Hypertensive heart disease with heart failure; I50.9 Heart failure, unspecified; K21.9 Gastro-esophageal reflux disease without esophagitis; F32.9 Major depressive disorder, single episode, unspecified; Z96.89 Presence of other specified functional implants; Z95.1 Presence of aortocoronary bypass graft; Z79.82 Long term (current) use of aspirin; Z79.1 Long term (current) use of non-steroidal anti-inflammatories (NSAID); Z87.19 Personal history of other diseases of the digestive system; Z79.899 Other long term (current) drug therapy; Z79.891 Long term (current) use of opiate analgesic; Z88.6 Allergy status to analgesic agent; Z95.5 Presence of coronary angioplasty implant and graft
CPT/HCPCS: 36415; 80053; 83690; 85025; 85027; 85610; 85730; 86850; 86900; 86901; 86920; 87081; 96374; 99283; 99284

== ENCOUNTER 2018-08-05 14:26 | Outpatient (CLI) | payer MEDICARE, OTHER ==
--- NOTE | 2018-08-06 09:20 | XRAY Report ---
Reason: PAIN IN LEFT SHOULDER Procedure Date: 08/05/2018 Accession Number: [id number] / [id number] Procedure: XR - Shoulder 3 View LT CPT Code: FULL RESULT: EXAM: LEFT SHOULDER RADIOGRAPHY EXAM DATE: 08/05/2018 03:08 PM. CLINICAL HISTORY: Pain in left shoulder. COMPARISON: None. TECHNIQUE: 3 views. FINDINGS: Bones: Normal. No fracture or bone lesion. Joints: Degenerative changes of the glenohumeral and acromioclavicular joint. No dislocation. Soft tissues: Status post CABG with calcified aortic arch. IMPRESSION: Degenerative changes without dislocation. RADIA
== END 2018-08-05 14:27 | disposition home or self-care (01) ==
LOC: DI 14:26
PROVIDERS: ATTEND Physician Assistant
DX: M19.012 Primary osteoarthritis, left shoulder (principal)

== ENCOUNTER 2018-09-04 09:45 | Outpatient (CLI) | payer MEDICARE, OTHER ==
[2018-09-04 18:11] LABS: CREATININE 0.8 mg/dL (0.4-1.0)
== END 2018-09-04 09:46 | disposition home or self-care (01) ==
LOC: LAB.F 09:45
PROVIDERS: ATTEND Internal Medicine Cardiovascular Disease
DX: I50.22 Chronic systolic (congestive) heart failure (principal); I25.810 Atherosclerosis of coronary artery bypass graft(s) without angina pectoris
CPT/HCPCS: 36415; 80048; 83880

== ENCOUNTER 2018-10-01 11:32 | Outpatient (CLI) | payer MEDICARE, OTHER ==
[2018-10-01 18:44] LABS: CALCIUM 9.2 mg/dL (8.5-10.3); CREATININE 1.1 mg/dL (0.4-1.0)
== END 2018-10-01 11:33 | disposition home or self-care (01) ==
LOC: LAB.F 11:32
PROVIDERS: ATTEND Internal Medicine Cardiovascular Disease
DX: I50.22 Chronic systolic (congestive) heart failure (principal)
CPT/HCPCS: 36415; 80048; 83880

== ENCOUNTER 2020-02-13 11:21 | Emergency (ER) | payer MEDICARE, OTHER ==
--- NOTE | 2020-02-13 11:33 | ED Physician Documentation ---
PD HPI FEMALE - Stated complaint Stated Complaint: FEMALE - Chief complaint Chief Complaint: UTI - History obtained from History obtained from: Patient - History of Present Illness Timing - onset: How many days ago (few) Timing - duration: Days (few) Timing - details: Gradual onset, Still present, Waxing and waning Associated symptoms: Back pain (some at both flanks), Dysuria, Urinary frequency. No: Fever, Abdominal pain, Pelvic pain, Vaginal pain, Vaginal bleeding, Vaginal discharge, Genital sore/lesion Similar symptoms before: Diagnosis (has had UTIs remotely, with similar symptoms.) Review of Systems Constitutional: denies: Fever, Chills, Myalgias Nose: denies: Rhinorrhea / runny nose, Congestion Throat: denies: Sore throat Respiratory: denies: Cough GI: reports: Abdominal Swelling (complains of bloating intermittently. Discussed use of fiber supplements.). denies: Nausea, Vomiting, Constipation, Diarrhea : reports: Dysuria, Frequency. denies: Hematuria, Discharge Skin: denies: Rash PD PAST MEDICAL HISTORY - Past Medical History Past Medical History: Yes Cardiovascular: Congestive heart failure, Hypertension, Coronary artery disease Respiratory: Shortness of breath Endocrine/Autoimmune: Type 2 diabetes GI: GERD, Hiatal hernia, Diverticulitis : Renal insuffiency HEENT: Chronic hearing loss Psych: Depression Musculoskeletal: Osteoarthritis, Chronic back pain Derm: Other - Past Surgical History Past Surgical History: Yes General: Cholecystectomy, Other Ortho: Spine surgery /[employer]: 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 Cardiovascular: CABG - Present Medications Home Medications: Ambulatory Orders Medication Instructions Recorded Confirmed Mirtazapine 45 mg PO QPM 11/13/17 03/12/18 Spironolactone 25 mg PO DAILY 11/13/17 03/12/18 Tramadol HCl 50 - 100 mg PO TID PRN 11/13/17 03/12/18 Valsartan [Diovan] 40 mg PO QPM 11/13/17 03/12/18 Acetaminophen/Diphenhydramine 1 tab PO QPM PRN 03/12/18 03/12/18 [Tylenol Pm Ex-Strength Caplet] Cholecalciferol [Vitamin D3] 5,000 units PO DAILY 03/12/18 03/12/18 Diazepam 1 - 2 mg PO DAILY PRN 03/12/18 03/12/18 Docusate Sodium 100 mg PO DAILY PRN 03/12/18 03/12/18 Folic Acid 400 mcg PO DAILY 03/12/18 03/12/18 Lidocaine Patch 5% [Lidoderm Patch] 1 patch TOP DAILY PRN 03/12/18 03/12/18 Nitroglycerin [Nitrostat] 0.4 mg PO Q5M PRN 03/12/18 03/12/18 Red Yeast Rice 1,200 mg PO DAILY 03/12/18 03/12/18 Triamcinolone 0.1% Cream [Kenalog 1 applic TOP BID PRN 03/12/18 03/12/18 0.1% Cream] Ubidecarenone [Co Q-10] 10 mg PO DAILY 03/12/18 03/12/18 Pantoprazole [Protonix] 40 mg PO BID #120 tablet 03/13/18 Cephalexin [Keflex] 500 mg PO TID #18 capsule 02/13/20 Phenazopyridine HCl [Pyridium] 100 mg PO TID PRN #15 tablet 02/13/20 - Allergies Allergies/Adverse Reactions: Allergies Allergy/AdvReac Type Severity Reaction Status Date / Time meperidine HCl * Allergy Severe Respiratory Verified 02/13/20 11:25 [From Demerol] pain meds Allergy Intermediate Nausea Uncoded 02/13/20 11:25 preservatives in lidocaine Allergy Intermediate Respiratory Uncoded 02/13/20 11:25 preservatives in medications Allergy Intermediate Respiratory Uncoded 02/13/20 11:25 - Social History Does the pt smoke?: No Smoking Status: Never smoker Does the pt drink ETOH?: No Does the pt have substance abuse?: Yes - Immunizations Immunizations are current?: Yes - POLST Patient has POLST: Yes POLST Status: Full Code PD ED PE NORMAL - Vitals Vital signs reviewed: Yes - General General: Alert and oriented X 3, No acute distress, Well developed/nourished - Neck Neck: Supple, no meningeal sign, No adenopathy - Cardiac Cardiac: RRR, No murmur - Respiratory Respiratory: Clear bilaterally - Abdomen Abdomen: Normal bowel sounds, Soft, Non tender, Non distended - Back Back: No spinal TTP, Other (mild CVA tenderness to percussion both sides, left more than right. ) - Derm Derm: Normal color, Warm and dry - Extremities Extremities: Normal ROM s pain, No calf tenderness / cord, Other (mild edema in both lower legs) - Neuro Neuro: Alert and oriented X 3, No motor deficit, Normal speech Results - Vitals Vitals: Vital Signs - 24 hr 02/13/20 02/13/20 11:25 14:02 Temperature 36.5 C 36.3 C L Heart Rate 65 56 L Respiratory 14 16 Rate Blood Pressure 165/52 H 134/94 H O2 Saturation 97 100 Oxygen O2 Source Room air - Labs Labs: Laboratory Tests 02/13/20 02/13/20 02/13/20 11:36 12:20 12:20 WBC 8.2 RBC 4.78 Hgb 13.7 Hct 41.7 MCV 87.2 MCH 28.7 MCHC 32.9 RDW 14.2 Plt Count 199 MPV 10.7 Neut # (Auto) 5.8 Lymph # (Auto) 1.5 [place] # (Auto) 0.6 Eos # (Auto) 0.2 Baso # (Auto) 0.1 Absolute Nucleated RBC 0.00 Nucleated RBC % 0.0 Sodium 136 Potassium 4.4 Chloride 105 Carbon Dioxide 20 L Anion Gap 11.0 BUN 24 H Creatinine 1.0 Estimated GFR (MDRD) 53 L Glucose 213 H Calcium 9.5 Magnesium 1.7 Total Bilirubin 1.1 H AST 19 ALT 12 Alkaline Phosphatase 78 Total Protein 7.2 Albumin 4.4 Globulin 2.8 Albumin/Globulin Ratio 1.6 Lipase 46 Urine Color YELLOW Urine Clarity HAZY Urine pH 5.0 Ur Specific [place] 1.025 Urine Protein NEGATIVE Urine Glucose (UA) 100 H Urine Ketones NEGATIVE Urine Occult Blood NEGATIVE Urine Nitrite NEGATIVE Urine Bilirubin NEGATIVE Urine Urobilinogen 0.2 (NORMAL) Ur Leukocyte Esterase SMALL H Urine RBC None Seen Urine WBC 6-10 H Ur Squamous Epith Cells MANY Squamous H Urine Bacteria Few Ur Microscopic Review INDICATED Urine Culture Comments NOT INDICATED PD MEDICAL DECISION MAKING - ED course Complexity details: reviewed results (UA is not that bad looking but her symptoms would be suggestive of UTI. ), considered differential, d/w patient Departure - Departure Disposition: 01 Home, Self Care Clinical Impression: UTI (urinary tract infection) Qualifiers: Urinary tract infection type: acute cystitis Hematuria presence: without hematuria Qualified Code(s): N30.00 - Acute cystitis without hematuria Condition: Stable Record reviewed to determine appropriate education?: Yes Instructions: ED UTI Cystitis Female Prescriptions: Cephalexin [Keflex] 500 mg PO TID #18 capsule Phenazopyridine HCl [Pyridium] 100 mg PO TID PRN #15 tablet PRN Reason: Abdominal Pain Comments: Take the cephalexin 3 times a day for 6 days for your urinary tract infection. You can use phenazopyridine if needed for the frequency and incontinence. Sometimes I will help. Stay well-hydrated. Recheck if not improved over the next several days. Discharge Date/Time: 02/13/20 14:03
[2020-02-13 12:07] LABS: BILIRUBIN,URINE NEGATIVE (NEGATIVE); GLUCOSE, URINE (UA) 100 mg/dL (NEGATIVE); KETONES,URINE (UA) NEGATIVE (NEGATIVE); LEUKOCYTE ESTERASE, URINE SMALL (NEGATIVE); NITRITE,URINE NEGATIVE (NEGATIVE); OCCULT BLOOD,URINE NEGATIVE (NEGATIVE); PROTEIN,URINE NEGATIVE (NEGATIVE); UROBILINOGEN,URINE 0.2 (NORMAL) E.U./dL (NORMAL)
[2020-02-13 12:18] LABS: CLARITY,URINE HAZY (CLEAR)
[2020-02-13 12:20] LABS: BACTERIA,URINE Few /HPF (None Seen); RBC,URINE None Seen /HPF (0-5); SQUAMOUS EPITHELIAL CELL,UR MANY Squamous (<= Few)
[2020-02-13 12:31] LABS: BASOPHILS # (AUTO) 0.1 10^3/uL (0.0-0.1); BASOPHILS % (AUTO) 0.8 %; EOSINOPHILS # (AUTO) 0.2 10^3/uL (0.0-0.7); EOSINOPHILS % (AUTO) 2.5 %; HGB - HEMOGLOBIN 13.7 g/dL (12.0-16.0); LYMPHOCYTES # (AUTO) 1.5 10^3/uL (1.5-3.5); LYMPHOCYTES % (AUTO) 18.4 %; MEAN CORPUSCULAR HEMOGLOBIN 28.7 pg (27.0-31.0); MEAN CORPUSCULAR HGB CONC 32.9 g/dL (32.0-36.0); MEAN CORPUSCULAR VOLUME 87.2 fL (81.0-99.0); MEAN PLATELET VOLUME 10.7 fL (7.9-10.8); MONOCYTES # (AUTO) 0.6 10^3/uL (0.0-1.0); MONOCYTES % (AUTO) 7.8 %; NEUTROPHILS # (AUTO) 5.8 10^3/uL (1.5-6.6); PLT - PLATELET COUNT 199 10^3/uL (130-450); RED BLOOD COUNT 4.78 10^6/uL (4.20-5.40); RED CELL DISTRIBUTION WIDTH 14.2 % (12.0-15.0); WHITE BLOOD COUNT 8.2 x10^3/uL (4.8-10.8)
[2020-02-13 12:45] LABS: ALBUMIN 4.4 g/dL (3.2-5.5); ALBUMIN/GLOBULIN RATIO 1.6 (1.0-2.2); BILIRUBIN,TOTAL 1.1 mg/dL (0.2-1.0); CALCIUM 9.5 mg/dL (8.5-10.3); MAGNESIUM 1.7 mg/dL (1.7-2.8); TOTAL PROTEIN 7.2 g/dL (6.7-8.2)
[2020-02-13] MEDS ORDERED: cephALEXin 250 MG CAPSULE PO STA (13:12)
[2020-02-13] MEDS ORDERED: PHENAZOPYRIDINE 100 MG TABLET PO STA (13:13)
[2020-02-13 14:02] VITALS: BP 134/94
== END 2020-02-13 14:03 | disposition home or self-care (01) ==
LOC: ED 11:21
DX: N30.00 Acute cystitis without hematuria (principal); I10 Essential (primary) hypertension; E11.9 Type 2 diabetes mellitus without complications
CPT/HCPCS: 36415; 80053; 81001; 83690; 83735; 85025; 99283; A9270; 81003; 87086

== ENCOUNTER 2020-03-28 21:00 | Emergency (ER) | payer MEDICARE, OTHER ==
--- NOTE | 2020-03-28 21:06 | ED Physician Documentation ---
History of Present Illness - Stated complaint Stated Complaint: AB PX - History obtained from History obtained from: Patient (84 [facility] with [facility]d pain without syncope or fever. denies any other complaints. reports nausea and vomiting as well.) Review of Systems Constitutional: reports: Reviewed and negative Eyes: reports: Reviewed and negative Ears: reports: Reviewed and negative Nose: reports: Reviewed and negative Throat: reports: Reviewed and negative Cardiac: reports: Reviewed and negative Respiratory: reports: Reviewed and negative GI: reports: Abdominal Pain, Nausea, Vomiting, Diarrhea : reports: Reviewed and negative Skin: reports: Reviewed and negative Musculoskeletal: reports: Reviewed and negative Neurologic: reports: Reviewed and negative Psychiatric: reports: Reviewed and negative Endocrine: reports: Reviewed and negative Immunocompromised: reports: Reviewed and negative PD PAST MEDICAL HISTORY - Past Medical History Cardiovascular: Congestive heart failure, Hypertension, Coronary artery disease Respiratory: Shortness of breath Endocrine/Autoimmune: Type 2 diabetes GI: GERD, Hiatal hernia, Diverticulitis : Renal insuffiency HEENT: Chronic hearing loss Psych: Depression Musculoskeletal: Osteoarthritis, Chronic back pain Derm: Other - Past Surgical History Past Surgical History: Yes General: Cholecystectomy, Other 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 Cardiovascular: CABG - Present Medications Home Medications: Ambulatory Orders Medication Instructions Recorded Confirmed Mirtazapine 45 mg PO QPM 11/13/17 03/12/18 Spironolactone 25 mg PO DAILY 11/13/17 03/12/18 Tramadol HCl 50 - 100 mg PO TID PRN 11/13/17 03/12/18 Valsartan [Diovan] 40 mg PO QPM 11/13/17 03/12/18 Acetaminophen/Diphenhydramine 1 tab PO QPM PRN 03/12/18 03/12/18 [Tylenol Pm Ex-Strength Caplet] Cholecalciferol [Vitamin D3] 5,000 units PO DAILY 03/12/18 03/12/18 Diazepam 1 - 2 mg PO DAILY PRN 03/12/18 03/12/18 Docusate Sodium 100 mg PO DAILY PRN 03/12/18 03/12/18 Folic Acid 400 mcg PO DAILY 03/12/18 03/12/18 Lidocaine Patch 5% [Lidoderm Patch] 1 patch TOP DAILY PRN 03/12/18 03/12/18 Nitroglycerin [Nitrostat] 0.4 mg PO Q5M PRN 03/12/18 03/12/18 Red Yeast Rice 1,200 mg PO DAILY 03/12/18 03/12/18 Triamcinolone 0.1% Cream [Kenalog 1 applic TOP BID PRN 03/12/18 03/12/18 0.1% Cream] Ubidecarenone [Co Q-10] 10 mg PO DAILY 03/12/18 03/12/18 Pantoprazole [Protonix] 40 mg PO BID #120 tablet 03/13/18 Cephalexin [Keflex] 500 mg PO TID #18 capsule 02/13/20 Phenazopyridine HCl [Pyridium] 100 mg PO TID PRN #15 tablet 02/13/20 - Allergies Allergies/Adverse Reactions: Allergies Allergy/AdvReac Type Severity Reaction Status Date / Time meperidine HCl * Allergy Severe Respiratory Verified 03/28/20 21:05 [From Demerol] pain meds Allergy Intermediate Nausea Uncoded 03/28/20 21:05 preservatives in lidocaine Allergy Intermediate Respiratory Uncoded 03/28/20 21:05 preservatives in medications Allergy Intermediate Respiratory Uncoded 03/28/20 21:05 - Social History Does the pt smoke?: No Smoking Status: Never smoker Does the pt drink ETOH?: No Does the pt have substance abuse?: Yes - Immunizations Immunizations are current?: Yes - POLST Patient has POLST: Yes POLST Status: Full Code PD ED PE NORMAL - Vitals Vital signs reviewed: Yes - General General: No acute distress, Well developed/nourished - HEENT HEENT: Atraumatic, PERRL, EOMI, Moist mucous membranes - Neck Neck: Supple, no meningeal sign, No adenopathy - Cardiac Cardiac: RRR, No murmur, Strong equal pulses - Respiratory Respiratory: No respiratory distress, Clear bilaterally - Abdomen Abdomen: Normal bowel sounds, Soft, Non distended, Other (diffuse tenderness to palpation, no midline abdominal pulsatile mass. ) - Back Back: No CVA TTP, No spinal TTP - Derm Derm: Normal color, Warm and dry, No rash - Extremities Extremities: No deformity - Neuro Neuro: Alert and oriented X 3, lap polisher 2-12 intact, No motor deficit, No sensory deficit, Normal speech - Psych Psych: Normal mood, Normal affect Results - Vitals Vitals: Vital Signs - 24 hr 03/28/20 03/28/20 03/28/20 21:06 23:10 23:52 Temperature 36.4 C L 36.5 C Heart Rate 55 L 52 L 52 L Respiratory 18 14 14 Rate Blood Pressure 150/80 H 160/88 H 156/77 H O2 Saturation 94 99 100 Oxygen O2 Source Room air - EKG (time done) 21:53 Rate: Other (no stemi) - Labs Labs: Laboratory Tests 03/28/20 03/28/20 03/28/20 22:24 22:24 22:24 WBC 8.6 RBC 4.40 Hgb 12.5 Hct 39.1 MCV 88.9 MCH 28.4 MCHC 32.0 RDW 13.7 Plt Count 199 MPV 10.3 Neut # (Auto) 7.8 H Lymph # (Auto) 0.6 L Prentiss # (Auto) 0.2 Eos # (Auto) 0.0 Baso # (Auto) 0.0 Absolute Nucleated RBC 0.00 Nucleated RBC % 0.0 PT 12.1 INR 1.1 APTT 26.5 Sodium 138 Potassium 4.4 Chloride 105 Carbon Dioxide 19 L Anion Gap 14.0 H BUN 24 H Creatinine 1.1 H Estimated GFR (MDRD) 48 L Glucose 253 H Lactic Acid Calcium 9.4 Magnesium 1.9 Total Bilirubin 0.5 AST 18 ALT 14 Alkaline Phosphatase 72 Total Creatine Kinase 29 Total Protein 7.0 Albumin 4.3 Globulin 2.7 Albumin/Globulin Ratio 1.6 Lipase 38 03/28/20 22:24 WBC RBC Hgb Hct MCV MCH MCHC RDW Plt Count MPV Neut # (Auto) Lymph # (Auto) Prentiss # (Auto) Eos # (Auto) Baso # (Auto) Absolute Nucleated RBC Nucleated RBC % PT INR APTT Sodium Potassium Chloride Carbon Dioxide Anion Gap BUN Creatinine Estimated GFR (MDRD) Glucose Lactic Acid 1.1 Calcium Magnesium Total Bilirubin AST ALT Alkaline Phosphatase Total Creatine Kinase Total Protein Albumin Globulin Albumin/Globulin Ratio Lipase PD MEDICAL DECISION MAKING - ED course Complexity details: reviewed results, re-evaluated patient (23:44 pain resolved. patient has not provided ua. she denies symptoms of dysuria, flank pain, denies any pain currently. requesting to be dcd.), considered differential (volvulus, SBO, diverticulitis), d/w patient, d/w family, other (ct abd/pelvis unremarkable.) Departure - Departure Disposition: 01 Home, Self Care Clinical Impression: Abdominal pain Qualifiers: Abdominal location: unspecified location Qualified Code(s): R10.9 - Unspecified abdominal pain Condition: Stable Instructions: ED Abdominal Pain Unkn Cause Follow-Up: Iván Downs MD [Primary Care Provider] - Tomorrow Comments: follow up with your primary care provider tomorrow. Discharge Date/Time: 03/29/20 00:06
[2020-03-28] MEDS ORDERED: IOVERSOL 320 100 ML VIAL IVP ONE (22:00)
[2020-03-28 22:30] LABS: BASOPHILS % (AUTO) 0.3 %; EOSINOPHILS % (AUTO) 0.1 %; HGB - HEMOGLOBIN 12.5 g/dL (12.0-16.0); LYMPHOCYTES # (AUTO) 0.6 10^3/uL (1.5-3.5); LYMPHOCYTES % (AUTO) 6.4 %; MEAN CORPUSCULAR HEMOGLOBIN 28.4 pg (27.0-31.0); MEAN CORPUSCULAR VOLUME 88.9 fL (81.0-99.0); MEAN PLATELET VOLUME 10.3 fL (7.9-10.8); MONOCYTES # (AUTO) 0.2 10^3/uL (0.0-1.0); MONOCYTES % (AUTO) 2.3 %; NEUTROPHILS # (AUTO) 7.8 10^3/uL (1.5-6.6); NEUTROPHILS % (AUTO) 90.7 %; PLT - PLATELET COUNT 199 10^3/uL (130-450); RED CELL DISTRIBUTION WIDTH 13.7 % (12.0-15.0); WHITE BLOOD COUNT 8.6 x10^3/uL (4.8-10.8)
[2020-03-28] MEDS ORDERED: ONDANSETRON 4 MG/2 ML VIAL IVP STA (22:30)
[2020-03-28 22:35] LABS: INR 1.1 (0.8-1.2); PT - PROTHROMBIN TIME 12.1 secs (9.9-12.6)
[2020-03-28 22:43] LABS: PARTIAL THROMBOPLASTIN TIME 26.5 secs (24.9-33.3)
[2020-03-28 22:47] LABS: ALBUMIN 4.3 g/dL (3.2-5.5); ALBUMIN/GLOBULIN RATIO 1.6 (1.0-2.2); BILIRUBIN,TOTAL 0.5 mg/dL (0.2-1.0); CALCIUM 9.4 mg/dL (8.5-10.3); CREATININE 1.1 mg/dL (0.4-1.0); MAGNESIUM 1.9 mg/dL (1.7-2.8)
[2020-03-28] MEDS ORDERED: SODIUM CHLORIDE 0.9% 1,000 ML IV STA (23:00)
[2020-03-28 23:53] VITALS: BP 156/77
--- NOTE | 2020-03-29 08:34 | CT Report ---
PROCEDURE: Abdomen/Pelvis WO INDICATIONS: abd pain TECHNIQUE: Noncontrast 5 mm thick sections acquired from the diaphragms to the symphysis. 5 mm coronal and sagi ttal reformats were then performed. For radiation dose reduction, the following was used: automated exposure control, adjustment of mA and/or kV according to patient size. Oral contrast was not tolera michelle by the patient. Therefore the study is performed without oral and intravenous contrast. COMPARISON: Prior CT abdomen/pelvis 07/20/2013 was performed.. FINDINGS: Image quality: Somewhat limited by the absence of both oral and intravenous contrast. ABDOMEN: Lung bases: Lung bases are clear. Heart size is normal. Solid organs: Liver and spleen are normal in size. Gallbladder is not visualized. Pancreas is norm al in contours. No adrenal nodules. Kidneys are normal in size, without hydronephrosis or nephrolit hiasis. Peritoneum and bowel: Unenhanced bowel loops demonstrate normal wall thickness and caliber. No free fluid or air. Nodes and vessels: No retroperitoneal or mesenteric adenopathy by size criteria. Aorta and inferior vena cava are normal in caliber. Miscellaneous: No ventral hernias. PELVIS: Genitourinary: Bladder wall thickness is normal. Miscellaneous: No inguinal hernias or adenopathy. Bones: No suspicious bony lesions. No vertebral body compression fractures. IMPRESSION: No acute disease, source of current symptomatology is not found. The findings are concordant with the preliminary interpretation. Reviewed by: Eric Dias MD on 03/29/2020 8:33 AM PDT Approved by: Eric Dias MD on 03/29/2020 8:33 AM PDT Station ID: [id number]
== END 2020-03-29 00:06 | disposition home or self-care (01) ==
LOC: EDUNIT# → ED 21:00
DX: R10.9 Unspecified abdominal pain (principal); R11.2 Nausea with vomiting, unspecified; R19.7 Diarrhea, unspecified; I10 Essential (primary) hypertension; E11.9 Type 2 diabetes mellitus without complications; I25.10 Atherosclerotic heart disease of native coronary artery without angina pectoris; Z95.1 Presence of aortocoronary bypass graft
CPT/HCPCS: 36415; 74176; 80053; 82550; 83605; 83690; 83735; 85025; 85610; 85730; 93005; 96361; 96374; 99283

== ENCOUNTER 2020-04-25 13:31 | Emergency (ER) | payer MEDICARE, OTHER ==
[2020-04-25] MEDS ORDERED: SODIUM CHLORIDE 0.9% 1,000 ML IV STA ×2 (13:59→15:11)
--- NOTE | 2020-04-25 14:02 | ED Physician Documentation ---
PD HPI CHEST PAIN - Stated complaint Stated Complaint: CP, DIFFICULTY WALKING, SHAKY - Chief complaint Chief Complaint: Cardiac - History obtained from History obtained from: Patient, Family - History of Present Illness Timing - onset: Today Timing - onset during: Rest Timing - duration: Hours Timing - details: Gradual onset, Still present Quality: Pressure Location: Substernal Radiation: Neck Improved by: Rest Associated symptoms: Nausea, General Weakness Similar symptoms before: Has not had sx before Recently seen: Not recently seen - Additional information Additional information: 84-year-old female who has become nauseated and lightheaded and dizzy today with some chest pressure. She has not had these symptoms previously. Review of Systems Constitutional: denies: Fever, Chills, Myalgias, Fatigue Eyes: denies: Photophobia Ears: denies: Ear pain Nose: denies: Rhinorrhea / runny nose, Congestion Throat: denies: Sore throat Cardiac: reports: Chest pain / pressure. denies: Palpitations, Pedal edema, Calf pain Respiratory: denies: Dyspnea, Cough GI: denies: Abdominal Pain, Nausea, Vomiting, Constipation, Diarrhea : denies: Dysuria, Frequency PD PAST MEDICAL HISTORY - Past Medical History Cardiovascular: Congestive heart failure, Hypertension, Coronary artery disease Respiratory: Shortness of breath Neuro: Dementia Endocrine/Autoimmune: Type 2 diabetes GI: GERD, Hiatal hernia, Diverticulitis : Renal insuffiency HEENT: Chronic hearing loss Psych: Depression Musculoskeletal: Osteoarthritis, Chronic back pain Derm: Other - Past Surgical History Past Surgical History: Yes General: Cholecystectomy, Other 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 Cardiovascular: CABG - Present Medications Home Medications: Ambulatory Orders Medication Instructions Recorded Confirmed Mirtazapine 45 mg PO QPM 11/13/17 03/12/18 Spironolactone 25 mg PO DAILY 11/13/17 03/12/18 Tramadol HCl 50 - 100 mg PO TID PRN 11/13/17 03/12/18 Valsartan [Diovan] 40 mg PO QPM 11/13/17 03/12/18 Acetaminophen/Diphenhydramine 1 tab PO QPM PRN 03/12/18 03/12/18 [Tylenol Pm Ex-Strength Caplet] Cholecalciferol [Vitamin D3] 5,000 units PO DAILY 03/12/18 03/12/18 Diazepam 1 - 2 mg PO DAILY PRN 03/12/18 03/12/18 Docusate Sodium 100 mg PO DAILY PRN 03/12/18 03/12/18 Folic Acid 400 mcg PO DAILY 03/12/18 03/12/18 Lidocaine Patch 5% [Lidoderm Patch] 1 patch TOP DAILY PRN 03/12/18 03/12/18 Nitroglycerin [Nitrostat] 0.4 mg PO Q5M PRN 03/12/18 03/12/18 Red Yeast Rice 1,200 mg PO DAILY 03/12/18 03/12/18 Triamcinolone 0.1% Cream [Kenalog 1 applic TOP BID PRN 03/12/18 03/12/18 0.1% Cream] Ubidecarenone [Co Q-10] 10 mg PO DAILY 03/12/18 03/12/18 Pantoprazole [Protonix] 40 mg PO BID #120 tablet 03/13/18 Cephalexin [Keflex] 500 mg PO TID #18 capsule 02/13/20 Phenazopyridine HCl [Pyridium] 100 mg PO TID PRN #15 tablet 02/13/20 - Allergies Allergies/Adverse Reactions: Allergies Allergy/AdvReac Type Severity Reaction Status Date / Time meperidine HCl * Allergy Severe Respiratory Verified 04/25/20 13:50 [From Demerol] pain meds Allergy Intermediate Nausea Uncoded 03/28/20 21:05 preservatives in lidocaine Allergy Intermediate Respiratory Uncoded 03/28/20 21:05 preservatives in medications Allergy Intermediate Respiratory Uncoded 03/28/20 21:05 - Social History Does the pt smoke?: No Smoking Status: Never smoker Does the pt drink ETOH?: No Does the pt have substance abuse?: Yes - Immunizations Immunizations are current?: Yes - POLST Patient has POLST: Yes POLST Status: Full Code PD ED PE NORMAL - Vitals Vital signs reviewed: Yes (hypertensive bradycardic) - General General: Alert and oriented X 3, No acute distress, Well developed/nourished - HEENT HEENT: Atraumatic, PERRL, EOMI - Neck Neck: Supple, no meningeal sign, No bony TTP - Cardiac Cardiac: RRR, Other (2/6 holosystolic blowing murmer consistent with aortic stenosis) - Respiratory Respiratory: No respiratory distress - Abdomen Abdomen: Soft, Non tender - Back Back: No CVA TTP, No spinal TTP - Derm Derm: Normal color, Warm and dry, No rash - Extremities Extremities: No deformity, No tenderness to palpate, Normal ROM s pain, No edema, No calf tenderness / cord - Neuro Neuro: Alert and oriented X 3, hydrodynamicist 2-12 intact, No motor deficit, No sensory deficit, Normal speech Eye Opening: Spontaneous Motor: Obeys Commands Verbal: Oriented GCS Score: 15 - Psych Psych: Normal mood, Normal affect Results - Vitals Vitals: Vital Signs - 24 hr 04/25/20 04/25/20 04/25/20 13:50 14:00 14:30 Temperature 36.4 C L Heart Rate 47 L 48 L 45 L Respiratory 18 26 H 14 Rate Blood Pressure 164/110 H 149/108 H 163/60 H O2 Saturation 98 100 98 04/25/20 04/25/20 04/25/20 15:00 15:30 16:00 Temperature Heart Rate 44 L 47 L 46 L Respiratory 14 21 19 Rate Blood Pressure 105/56 L 128/101 H 142/108 H O2 Saturation 97 97 95 04/25/20 16:50 Temperature 36.7 C Heart Rate Respiratory Rate Blood Pressure O2 Saturation Oxygen O2 Source Room air - EKG (time done) 1347 Rate: Rate (enter#) (49) Rhythm: Sinus bradycardia QRS: LVH Ischemia: Q waves Compare to prior EKG: Unchanged from prior EKG ([facility] 03-28-2020 no changes) Computer interpretation: Agree with computer - Labs Labs: Laboratory Tests 04/25/20 04/25/20 04/25/20 13:45 13:45 13:45 WBC 9.1 RBC 4.57 Hgb 12.8 Hct 38.9 MCV 85.1 MCH 28.0 MCHC 32.9 RDW 14.1 Plt Count 205 MPV 10.8 Neut # (Auto) 6.2 Lymph # (Auto) 1.9 Meagher # (Auto) 0.8 Eos # (Auto) 0.1 Baso # (Auto) 0.1 Absolute Nucleated RBC 0.00 Nucleated RBC % 0.0 Sodium 139 Potassium 3.6 Chloride 107 Carbon Dioxide 21 Anion Gap 11.0 BUN 16 Creatinine 0.9 Estimated GFR (MDRD) 60 L Glucose 118 H Calcium 9.2 Total Bilirubin 0.4 AST 16 ALT 12 Alkaline Phosphatase 70 Troponin I High Sens 6.9 Total Protein 6.8 Albumin 4.1 Globulin 2.7 Albumin/Globulin Ratio 1.5 Lipase 49 Urine Color Urine Clarity Urine pH Ur Specific [place] Urine Protein Urine Glucose (UA) Urine Ketones Urine Occult Blood Urine Nitrite Urine Bilirubin Urine Urobilinogen Ur Leukocyte Esterase Ur Microscopic Review Urine Culture Comments 04/25/20 16:16 WBC RBC Hgb Hct MCV MCH MCHC RDW Plt Count MPV Neut # (Auto) Lymph # (Auto) Meagher # (Auto) Eos # (Auto) Baso # (Auto) Absolute Nucleated RBC Nucleated RBC % Sodium Potassium Chloride Carbon Dioxide Anion Gap BUN Creatinine Estimated GFR (MDRD) Glucose Calcium Total Bilirubin AST ALT Alkaline Phosphatase Troponin I High Sens Total Protein Albumin Globulin Albumin/Globulin Ratio Lipase Urine Color YELLOW Urine Clarity CLEAR Urine pH 5.0 Ur Specific [place] 1.020 Urine Protein NEGATIVE Urine Glucose (UA) NEGATIVE Urine Ketones NEGATIVE Urine Occult Blood NEGATIVE Urine Nitrite NEGATIVE Urine Bilirubin NEGATIVE Urine Urobilinogen 0.2 (NORMAL) Ur Leukocyte Esterase NEGATIVE Ur Microscopic Review NOT INDICATED Urine Culture Comments NOT INDICATED - Rads (name of study) chest Radiology: Prelim report reviewed (Pression: No acute cardiopulmonary abnormality identified.), EMP read indepedently, See rad report Procedures - IVC sono (time) 1355 Bedside IVC sono: IVC measures (cm) (0.84), IVC collapsed c insp (cm) (complete), Dehydration (est 2 litere deficit.) PD MEDICAL DECISION MAKING - ED course Complexity details: re-evaluated patient, considered differential, d/w patient, d/w family ED course: 84 y/o female with chest pain and dizziness is found to be dehydrated and she is administered IV saline 2 liters. Initial trop is negative and she is given a GI cocktail for chest pain. She has improvement with a GI cocktail and she feels much improved and wants to go home. Departure - Departure Disposition: 01 Home, Self Care Clinical Impression: Dehydration Condition: Stable Instructions: ED Dehydration Follow-Up: Iván Downs MD [Primary Care Provider] -
[2020-04-25 14:03] LABS: BASOPHILS # (AUTO) 0.1 10^3/uL (0.0-0.1); BASOPHILS % (AUTO) 0.7 %; EOSINOPHILS # (AUTO) 0.1 10^3/uL (0.0-0.7); EOSINOPHILS % (AUTO) 1.4 %; HGB - HEMOGLOBIN 12.8 g/dL (12.0-16.0); LYMPHOCYTES # (AUTO) 1.9 10^3/uL (1.5-3.5); MEAN CORPUSCULAR HGB CONC 32.9 g/dL (32.0-36.0); MEAN CORPUSCULAR VOLUME 85.1 fL (81.0-99.0); MEAN PLATELET VOLUME 10.8 fL (7.9-10.8); MONOCYTES # (AUTO) 0.8 10^3/uL (0.0-1.0); MONOCYTES % (AUTO) 8.4 %; NEUTROPHILS # (AUTO) 6.2 10^3/uL (1.5-6.6); NEUTROPHILS % (AUTO) 68.2 %; PLT - PLATELET COUNT 205 10^3/uL (130-450); RED BLOOD COUNT 4.57 10^6/uL (4.20-5.40); RED CELL DISTRIBUTION WIDTH 14.1 % (12.0-15.0); WHITE BLOOD COUNT 9.1 x10^3/uL (4.8-10.8)
--- NOTE | 2020-04-25 14:14 | XRAY Report ---
PROCEDURE: Chest 1 View X-Ray INDICATIONS: Chest Pain TECHNIQUE: One view of the chest was acquired. COMPARISON: 11/13/2017. FINDINGS: Surgical changes and devices: Postsurgical changes are redemonstrated within the mediastinum. Lungs and pleura: No acute consolidation. There is mild suprahilar scarring redemonstrated bilateral ly. No pleural effusions or pneumothorax. Mediastinum: Mediastinal contours appear unchanged. Heart size is enlarged. Bones and chest wall: No suspicious bony lesions. Overlying soft tissues appear unremarkable. IMPRESSION: 1. No acute cardiopulmonary disease. Reviewed by: Noah Howard MD on 04/25/2020 2:13 PM PDT Approved by: Noah Howard MD on 04/25/2020 2:13 PM PDT Station ID: [id number]
[2020-04-25 14:16] LABS: ALBUMIN 4.1 g/dL (3.2-5.5); ALBUMIN/GLOBULIN RATIO 1.5 (1.0-2.2); BILIRUBIN,TOTAL 0.4 mg/dL (0.2-1.0); CALCIUM 9.2 mg/dL (8.5-10.3); CREATININE 0.9 mg/dL (0.4-1.0); TOTAL PROTEIN 6.8 g/dL (6.7-8.2)
[2020-04-25] MEDS ORDERED: MAG HYDROX/AL HYDROX/SIMETH 30 ML UDC PO STA (15:14)
[2020-04-25] MEDS ORDERED: LIDOCAINE VISCOUS 2% 15 ML UDC MM STA (15:14)
[2020-04-25 16:09] VITALS: BP 142/108
[2020-04-25 16:32] LABS: BILIRUBIN,URINE NEGATIVE (NEGATIVE); GLUCOSE, URINE (UA) NEGATIVE (NEGATIVE); KETONES,URINE (UA) NEGATIVE (NEGATIVE); LEUKOCYTE ESTERASE, URINE NEGATIVE (NEGATIVE); NITRITE,URINE NEGATIVE (NEGATIVE); OCCULT BLOOD,URINE NEGATIVE (NEGATIVE); PROTEIN,URINE NEGATIVE (NEGATIVE); UROBILINOGEN,URINE 0.2 (NORMAL) E.U./dL (NORMAL)
[2020-04-25 16:42] LABS: CLARITY,URINE CLEAR (CLEAR)
== END 2020-04-25 17:00 | disposition home or self-care (01) ==
LOC: ED 13:31
DX: R07.9 Chest pain, unspecified (principal); E86.0 Dehydration; I25.10 Atherosclerotic heart disease of native coronary artery without angina pectoris; R00.1 Bradycardia, unspecified; Z95.1 Presence of aortocoronary bypass graft; I11.0 Hypertensive heart disease with heart failure; I50.9 Heart failure, unspecified; E11.9 Type 2 diabetes mellitus without complications
CPT/HCPCS: 36415; 71045; 80053; 81003; 83690; 84484; 85025; 93005; 96360; 96361; 99284; A9270; 81001; 87086

== ENCOUNTER 2020-05-06 08:00 | Outpatient (CLI) | payer MEDICARE, OTHER ==
--- NOTE | 2020-05-06 12:24 | XRAY Report ---
PROCEDURE: Shoulder 3 View LT INDICATIONS: SHOULDER JOINT PAIN, LEFT TECHNIQUE: 3 views of the shoulder were acquired. COMPARISON: 08/05/2018 FINDINGS: Bones: No fractures or dislocations. No suspicious bony lesions. Visualized ribs appear intact. Degenerative changes are seen, including subacromial spurring. Moderate joint space narrowing is seen . Soft tissues: No suspicious soft tissue calcifications. The visualized lung demonstrates a normal a ppearance. Post CABG changes are partially seen. IMPRESSION: Moderate degenerative changes are seen, without acute abnormality seen by plain film. If it would be helpful for clinical management decision making, please consider a dedicated shoulder MRI for further evaluation (assuming that there is no contraindication). If there is strong clinical concern for labral pathology, then please consider performing this according to the arthrogram protoc ol. Reviewed by: Partha Jacob MD on 05/06/2020 11:23 AM KEEGAN Approved by: Partha Jacob MD on 05/06/2020 11:23 AM KEEGAN Station ID: [id number]
== END 2020-05-06 23:59 | disposition home or self-care (01) ==
LOC: DI.S 08:00
PROVIDERS: ATTEND Physician Assistant Medical
DX: M19.012 Primary osteoarthritis, left shoulder (principal)

== ENCOUNTER 2020-05-14 12:08 | Emergency (ER) | payer MEDICARE, OTHER ==
[2020-05-14] MEDS ORDERED: LACTATED RINGERS 1,000 ML IV STA (12:36)
[2020-05-14 12:49] LABS: BASOPHILS # (AUTO) 0.1 10^3/uL (0.0-0.1); BASOPHILS % (AUTO) 0.5 %; EOSINOPHILS # (AUTO) 0.1 10^3/uL (0.0-0.7); EOSINOPHILS % (AUTO) 1.4 %; LYMPHOCYTES # (AUTO) 1.8 10^3/uL (1.5-3.5); LYMPHOCYTES % (AUTO) 19.1 %; MEAN CORPUSCULAR HEMOGLOBIN 28.3 pg (27.0-31.0); MEAN CORPUSCULAR VOLUME 85.7 fL (81.0-99.0); MEAN PLATELET VOLUME 10.7 fL (7.9-10.8); MONOCYTES # (AUTO) 0.7 10^3/uL (0.0-1.0); MONOCYTES % (AUTO) 7.6 %; NEUTROPHILS # (AUTO) 6.5 10^3/uL (1.5-6.6); NEUTROPHILS % (AUTO) 71.1 %; PLT - PLATELET COUNT 212 10^3/uL (130-450); RED CELL DISTRIBUTION WIDTH 14.1 % (12.0-15.0); WHITE BLOOD COUNT 9.2 x10^3/uL (4.8-10.8)
[2020-05-14 13:03] LABS: ALBUMIN/GLOBULIN RATIO 1.4 (1.0-2.2); BILIRUBIN,TOTAL 0.5 mg/dL (0.2-1.0); CREATININE 1.1 mg/dL (0.4-1.0); MAGNESIUM 1.9 mg/dL (1.7-2.8); TOTAL PROTEIN 6.8 g/dL (6.7-8.2)
[2020-05-14 13:16] LABS: CORTISOL 11.2 ug/dL
[2020-05-14 13:20] LABS: THYROID STIMULATING HORMONE 0.11 uIU/mL (0.34-5.60)
[2020-05-14 13:45] LABS: BILIRUBIN,URINE NEGATIVE (NEGATIVE); GLUCOSE, URINE (UA) NEGATIVE (NEGATIVE); KETONES,URINE (UA) NEGATIVE (NEGATIVE); LEUKOCYTE ESTERASE, URINE NEGATIVE (NEGATIVE); NITRITE,URINE NEGATIVE (NEGATIVE); OCCULT BLOOD,URINE NEGATIVE (NEGATIVE); PROTEIN,URINE NEGATIVE (NEGATIVE); UROBILINOGEN,URINE 0.2 (NORMAL) E.U./dL (NORMAL)
[2020-05-14 13:53] LABS: CLARITY,URINE CLEAR (CLEAR)
--- NOTE | 2020-05-14 14:24 | ED Physician Documentation ---
PD HPI SYNCOPE - Stated complaint Stated Complaint: DIZZY, SHAKING - Chief complaint Chief Complaint: Resp - History obtained from History obtained from: Patient - History of Present Illness Witnessed: Unwitnessed Timing - onset: Today Preceding symptoms: Light headed (The patient states she felt lightheaded with standing and walking today. She thought she might "pass out at one point". No true syncope. She states she had not been eating and drinking very well over the last several weeks. She states the food does not taste good at [facility]. Less fluids too.). No: Headache Associated symptoms: No: Headache, Chest pain, Dyspnea Contributing factors: Decreased PO intake (She states she has not been eating well over the last several weeks but has not noticed obvious weight loss. She states she does not like to drink fluids.), Just stood up. No: Recent med change Injury occurred: No: Fell Similar symptoms before: Diagnosis (Seen here in the ER couple of weeks ago with similar symptoms and diagnosed with dehydration and improved with IV fluids. She states she did feel better with the fluids. No adjustment in medicines. She states she still has not eaten well.) Recently seen: Emergency Dept Review of Systems Constitutional: denies: Fever, Chills Nose: denies: Rhinorrhea / runny nose, Congestion Throat: denies: Sore throat Cardiac: denies: Chest pain / pressure (not recent. Had some chest heaving at last ER visit.), Palpitations Respiratory: denies: Cough GI: denies: Abdominal Pain, Nausea, Vomiting, Diarrhea : denies: Dysuria, Frequency Skin: denies: Rash, Lesions Neurologic: reports: Generalized weakness, Near syncope. 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 Cardiovascular: CABG - Present Medications Home Medications: Ambulatory Orders Medication Instructions Recorded Confirmed Mirtazapine 45 mg PO QPM 11/13/17 05/14/20 Spironolactone 50 mg PO DAILY 11/13/17 05/14/20 Tramadol HCl 50 - 100 mg PO TID PRN 11/13/17 05/14/20 Valsartan [Diovan] 40 mg PO QPM 11/13/17 05/14/20 Acetaminophen/Diphenhydramine 1 tab PO QPM PRN 03/12/18 05/14/20 [Tylenol Pm Ex-Strength Caplet] Cholecalciferol [Vitamin D3] 5,000 units PO DAILY 03/12/18 05/14/20 Diazepam 1 - 2 mg PO DAILY PRN 03/12/18 05/14/20 Docusate Sodium 100 mg PO DAILY PRN 03/12/18 05/14/20 Folic Acid 400 mcg PO DAILY 03/12/18 05/14/20 Lidocaine Patch 5% [Lidoderm Patch] 1 patch TOP DAILY PRN 03/12/18 05/14/20 Nitroglycerin [Nitrostat] 0.4 mg PO Q5M PRN 03/12/18 03/12/18 Red Yeast Rice 1,200 mg PO DAILY 03/12/18 05/14/20 Triamcinolone 0.1% Cream [Kenalog 1 applic TOP BID PRN 03/12/18 05/14/20 0.1% Cream] Ubidecarenone [Co Q-10] 10 mg PO DAILY 03/12/18 05/14/20 Pantoprazole [Protonix] 40 mg PO BID #120 tablet 03/13/18 05/14/20 Cephalexin [Keflex] 500 mg PO TID #18 capsule 02/13/20 05/14/20 Phenazopyridine HCl [Pyridium] 100 mg PO TID PRN #15 tablet 02/13/20 05/14/20 Metoprolol Tartrate 25 mg PO BID 05/14/20 05/14/20 - Allergies Allergies/Adverse Reactions: Allergies Allergy/AdvReac Type Severity Reaction Status Date / Time meperidine HCl * Allergy Severe Respiratory Verified 05/14/20 12:21 [From Demerol] pain meds Allergy Intermediate Nausea Uncoded 03/28/20 21:05 preservatives in lidocaine Allergy Intermediate Respiratory Uncoded 03/28/20 21:05 preservatives in medications Allergy Intermediate Respiratory Uncoded 03/28/20 21:05 - Living Situation Living Situation: reports: Alone Living Arrangement: reports: half-way - Social History Does the pt smoke?: No Smoking Status: Never smoker Does the pt drink ETOH?: No Does the pt have substance abuse?: Yes - Immunizations Immunizations are current?: Yes - POLST Patient has POLST: Yes POLST Status: Full Code PD ED PE NORMAL - Vitals Vital signs reviewed: Yes - General General: Alert and oriented X 3, No acute distress, Well developed/nourished - HEENT HEENT: Moist mucous membranes, Pharynx benign - Neck Neck: Supple, no meningeal sign, No adenopathy - Cardiac Cardiac: RRR, Other (2/6 murmur right chest with radiation to the back. ) - Respiratory Respiratory: Clear bilaterally - Abdomen Abdomen: Soft, Non tender, Non distended - Female Female : Deferred - Rectal Rectal: Deferred - Back Back: No CVA TTP - Derm Derm: Normal color - Extremities Extremities: No tenderness to palpate, Normal ROM s pain, No edema, No calf tenderness / cord - Neuro Neuro: Alert and oriented X 3, admissions manager 2-12 intact, No motor deficit, No sensory deficit, Normal speech Results - Vitals Vitals: Vital Signs - 24 hr 05/14/20 05/14/20 05/14/20 12:21 12:24 13:56 Temperature 36.7 C 36.7 C Heart Rate 60 60 55 L Respiratory 16 16 16 Rate Blood Pressure 144/67 H 144/67 H 134/81 H O2 Saturation 96 96 98 05/14/20 14:39 Temperature Heart Rate 55 L Respiratory 16 Rate Blood Pressure 132/80 H O2 Saturation 100 Oxygen O2 Source Room air - Labs Labs: Laboratory Tests 05/14/20 05/14/20 05/14/20 12:45 12:45 12:45 WBC 9.2 RBC 4.60 Hgb 13.0 Hct 39.4 MCV 85.7 MCH 28.3 MCHC 33.0 RDW 14.1 Plt Count 212 MPV 10.7 Neut # (Auto) 6.5 Lymph # (Auto) 1.8 [place] # (Auto) 0.7 Eos # (Auto) 0.1 Baso # (Auto) 0.1 Absolute Nucleated RBC 0.00 Nucleated RBC % 0.0 Sodium 135 Potassium 4.5 Chloride 103 Carbon Dioxide 25 Anion Gap 7.0 BUN 22 H Creatinine 1.1 H Estimated GFR (MDRD) 48 L Glucose 148 H Calcium 9.0 Magnesium 1.9 Total Bilirubin 0.5 AST 14 ALT 11 Alkaline Phosphatase 81 B-Natriuretic Peptide 201 H Total Protein 6.8 Albumin 4.0 Globulin 2.8 Albumin/Globulin Ratio 1.4 Lipase 41 TSH Cortisol Urine Color Urine Clarity Urine pH Ur Specific [place] Urine Protein Urine Glucose (UA) Urine Ketones Urine Occult Blood Urine Nitrite Urine Bilirubin Urine Urobilinogen Ur Leukocyte Esterase Ur Microscopic Review Urine Culture Comments 05/14/20 05/14/20 12:45 13:35 WBC RBC Hgb Hct MCV MCH MCHC RDW Plt Count MPV Neut # (Auto) Lymph # (Auto) [place] # (Auto) Eos # (Auto) Baso # (Auto) Absolute Nucleated RBC Nucleated RBC % Sodium Potassium Chloride Carbon Dioxide Anion Gap BUN Creatinine Estimated GFR (MDRD) Glucose Calcium Magnesium Total Bilirubin AST ALT Alkaline Phosphatase B-Natriuretic Peptide Total Protein Albumin Globulin Albumin/Globulin Ratio Lipase TSH 0.11 L Cortisol 11.2 Urine Color YELLOW Urine Clarity CLEAR Urine pH 6.0 Ur Specific [place] 1.010 Urine Protein NEGATIVE Urine Glucose (UA) NEGATIVE Urine Ketones NEGATIVE Urine Occult Blood NEGATIVE Urine Nitrite NEGATIVE Urine Bilirubin NEGATIVE Urine Urobilinogen 0.2 (NORMAL) Ur Leukocyte Esterase NEGATIVE Ur Microscopic Review NOT INDICATED Urine Culture Comments NOT INDICATED PD MEDICAL DECISION MAKING - ED course Complexity details: reviewed old records, reviewed results (No significant lab abnormalities. She does have a heart murmur and an echocardiogram from 2016 showed mitral regurgitation. No aortic stenosis was seen at that time.), re- evaluated patient, considered differential (The patient does claim less oral intake and feeling of lightheadedness the past couple of days. She may be under hydrated. Her heart rate is also noted between 48 and 60. Blood pressure is adequate.), d/w patient ED course: Given her symptoms as well as relative bradycardia, I think it reasonable to decrease her metoprolol from 25 mg twice a day to once a day. With less oral intake and no signs of edema or fluid overload, we could also decrease her spironolactone from 50 mg to 25 mg. She should see how she feels with this. Certainly still encourage her to have good fluid intake with low sodium. Follow-up with her primary care regarding any further medication revisions. She due to feel better with IV fluids here. Departure - Departure Disposition: Home, Self Care Clinical Impression: Light-headed feeling, Dehydration, Bradycardia Condition: Stable Record reviewed to determine appropriate education?: Yes Instructions: ED Dehydration Follow-Up: Marjorie Tapia PA [Primary Care Provider] - Comments: Your heart rate is slightly slow your initial blood pressure was relatively low. Given that you are not eating and drinking well, this enhances the effect of your medications. I would decrease your metoprolol and spironolactone doses and see if that helps you feel better. Also encourage adequate fluid hydration through the day. Decrease your metoprolol dose from 25 mg twice daily to just once daily. Decrease your spironolactone from 50 mg daily to 25 mg daily. Continue your other medicines as usual. Discharge Date/Time: 05/14/20 14:40
[2020-05-14 14:40] VITALS: BP 132/80
[2020-05-14 16:58] LABS: T4 (THYROXINE) 7.72 ug/dL (6.09-12.23)
[2020-05-14 17:04] LABS: FREE T3 3.28 pg/mL (2.5-3.9)
== END 2020-05-14 14:40 | disposition home or self-care (01) ==
LOC: ED 12:08
DX: R42 Dizziness and giddiness (principal); E86.0 Dehydration; R00.1 Bradycardia, unspecified; I51.7 Cardiomegaly; R94.31 Abnormal electrocardiogram [ECG] [EKG]; Z95.1 Presence of aortocoronary bypass graft; Z90.710 Acquired absence of both cervix and uterus
CPT/HCPCS: 36415; 80053; 81003; 82533; 82652; 83690; 83735; 83880; 84436; 84443; 84481; 85025; 93005; 96360; 99284; J7120; 81001; 87086

== ENCOUNTER 2020-06-28 10:31 | Emergency (ER) | payer MEDICARE, OTHER ==
[2020-06-28] MEDS ORDERED: SODIUM CHLORIDE 0.9% 1,000 ML IV STA (11:17)
--- NOTE | 2020-06-28 11:31 | ED Physician Documentation ---
History of Present Illness - Stated complaint Stated Complaint: "FEELING SICK" - Chief complaint Chief Complaint: General - History obtained from History obtained from: Patient, Friend - Additonal information Additional information: 84-year-old woman with past medical history of diabetes, mild CHF, high blood pressure, OA, presents with generalized body aches and malaise over the past several months worsening gradually over the day yesterday, associated with decreased appetite, feelings of depression, mild nausea. Patient denies chest pain cough, fever, abdominal pain vomiting or diarrhea. +mild gradual onset sob. Increased urinary frequency, but without dysuria or hematuria. Per her friend who is healthcare proxy, patient hasn't been drinking enough fluids. Review of Systems Ten Systems: 10 systems reviewed and negative Constitutional: denies: Fever, Chills Cardiac: denies: Chest pain / pressure Respiratory: denies: Cough PD PAST MEDICAL HISTORY - Past Medical History Cardiovascular: Congestive heart failure, Hypertension, Coronary artery disease, Valve disorder Respiratory: Shortness of breath Neuro: Dementia Endocrine/Autoimmune: Type 2 diabetes GI: GERD, Hiatal hernia, Diverticulitis : Renal insuffiency HEENT: Chronic hearing loss Psych: Depression Musculoskeletal: Osteoarthritis, Chronic back pain Derm: Other - Past Surgical History Past Surgical History: Yes General: Cholecystectomy, Other Ortho: 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 Cardiovascular: CABG - Present Medications Home Medications: Ambulatory Orders Medication Instructions Recorded Confirmed Mirtazapine 45 mg PO QPM 11/13/17 05/14/20 Spironolactone 50 mg PO DAILY 11/13/17 05/14/20 Tramadol HCl 50 - 100 mg PO TID PRN 11/13/17 05/14/20 Valsartan [Diovan] 40 mg PO QPM 11/13/17 05/14/20 Acetaminophen/Diphenhydramine 1 tab PO QPM PRN 03/12/18 05/14/20 [Tylenol Pm Ex-Strength Caplet] Cholecalciferol [Vitamin D3] 5,000 units PO DAILY 03/12/18 05/14/20 Diazepam 1 - 2 mg PO DAILY PRN 03/12/18 05/14/20 Docusate Sodium 100 mg PO DAILY PRN 03/12/18 05/14/20 Folic Acid 400 mcg PO DAILY 03/12/18 05/14/20 Lidocaine Patch 5% [Lidoderm Patch] 1 patch TOP DAILY PRN 03/12/18 05/14/20 Nitroglycerin [Nitrostat] 0.4 mg PO Q5M PRN 03/12/18 03/12/18 Red Yeast Rice 1,200 mg PO DAILY 03/12/18 05/14/20 Triamcinolone 0.1% Cream [Kenalog 1 applic TOP BID PRN 03/12/18 05/14/20 0.1% Cream] Ubidecarenone [Co Q-10] 10 mg PO DAILY 03/12/18 05/14/20 Pantoprazole [Protonix] 40 mg PO BID #120 tablet 03/13/18 05/14/20 Cephalexin [Keflex] 500 mg PO TID #18 capsule 02/13/20 05/14/20 Phenazopyridine HCl [Pyridium] 100 mg PO TID PRN #15 tablet 02/13/20 05/14/20 Metoprolol Tartrate 25 mg PO BID 05/14/20 05/14/20 - Allergies Allergies/Adverse Reactions: Allergies Allergy/AdvReac Type Severity Reaction Status Date / Time meperidine HCl * Allergy Severe Respiratory Verified 05/14/20 12:21 [From Demerol] pain meds Allergy Intermediate Nausea Uncoded 03/28/20 21:05 preservatives in lidocaine Allergy Intermediate Respiratory Uncoded 03/28/20 21:05 preservatives in medications Allergy Intermediate Respiratory Uncoded 03/28/20 21:05 - Social History Does the pt smoke?: No Smoking Status: Never smoker Does the pt drink ETOH?: No Does the pt have substance abuse?: Yes - Immunizations Immunizations are current?: Yes - POLST Patient has POLST: Yes POLST Status: Full Code PD ED PE NORMAL - General General: Alert and oriented X 3 - HEENT HEENT: Atraumatic, Moist mucous membranes - Neck Neck: No JVD - Cardiac Cardiac: RRR - Respiratory Respiratory: No respiratory distress, Clear bilaterally - Abdomen Abdomen: Soft, Non tender, Non distended - Derm Derm: Normal color - Extremities Extremities: No edema - Neuro Neuro: Alert and oriented X 3 - Psych Psych: Normal mood, Normal affect Results - Vitals Vitals: Vital Signs - 24 hr 06/28/20 06/28/20 06/28/20 10:42 10:49 12:25 Temperature 36.6 C Heart Rate 71 65 56 L Respiratory 18 16 17 Rate Blood Pressure 175/88 H 175/88 H 183/68 H O2 Saturation 98 98 100 06/28/20 06/28/20 13:10 13:54 Temperature Heart Rate 60 66 Respiratory 15 16 Rate Blood Pressure 176/71 H 179/100 H O2 Saturation 97 99 Oxygen O2 Source Room air - EKG (time done) No standard instances Rate: [place] (51) Rhythm: NSR Compare to prior EKG: Unchanged from prior EKG (05/14/20) - Labs Labs: Laboratory Tests 06/28/20 06/28/20 06/28/20 11:45 11:45 12:35 WBC 8.6 RBC 4.23 Hgb 12.0 Hct 36.2 L MCV 85.6 MCH 28.4 MCHC 33.1 RDW 16.1 H Plt Count 231 MPV 10.5 Neut # (Auto) 6.1 Lymph # (Auto) 1.7 [place] # (Auto) 0.7 Eos # (Auto) 0.1 Baso # (Auto) 0.1 Absolute Nucleated RBC 0.00 Nucleated RBC % 0.0 Sodium 137 Potassium 4.2 Chloride 104 Carbon Dioxide 21 Anion Gap 12.0 BUN 15 Creatinine 0.8 Estimated GFR (MDRD) 69 L Glucose 154 H Calcium 9.4 Total Bilirubin 0.7 AST 16 ALT 11 Alkaline Phosphatase 64 Total Protein 6.7 Albumin 3.7 Globulin 3.0 Albumin/Globulin Ratio 1.2 Lipase 31 Urine Color YELLOW Urine Clarity CLEAR Urine pH 5.5 Ur Specific [place] 1.025 Urine Protein NEGATIVE Urine Glucose (UA) NEGATIVE Urine Ketones NEGATIVE Urine Occult Blood NEGATIVE Urine Nitrite NEGATIVE Urine Bilirubin NEGATIVE Urine Urobilinogen 0.2 (NORMAL) Ur Leukocyte Esterase NEGATIVE Ur Microscopic Review NOT INDICATED Urine Culture Comments NOT INDICATED PD MEDICAL DECISION MAKING - ED course ED course: 84-year-old woman with pmh OA presented with generalized body aches X several months a/w malaise worsening yesterday. Labwork, ekg, cxr and ua stable. pt reassured by normal labwork, requesting tylenol. will f/u with pcp for further care instructions. strict return precautions given. Departure - Departure Disposition: 01 Home, Self Care Clinical Impression: Osteoarthritis, Generalized muscle ache Condition: Stable Record reviewed to determine appropriate education?: Yes Instructions: Osteoarthritis Comments: Please follow up with your primary care provider for further management. Return to the ED for any worsening of symptoms.
--- NOTE | 2020-06-28 11:39 | XRAY Report ---
PROCEDURE: Chest 1 View X-Ray INDICATIONS: Chest Pain TECHNIQUE: One view of the chest was acquired. COMPARISON: 04/25/2020 FINDINGS: Surgical changes and devices: Surgical clips are seen projecting over right upper lung field. Median sternotomy wires are also noted.. Lungs and pleura: No pleural effusions or pneumothorax. Lungs are clear. Mediastinum: Mediastinal contours appear normal. Heart size is enlarged. Bones and chest wall: No suspicious bony lesions. Overlying soft tissues appear unremarkable. IMPRESSION: No acute cardiopulmonary pathology. Reviewed by: Anthony Conde MD on 06/28/2020 11:37 AM PDT Approved by: Anthony Conde MD on 06/28/2020 11:37 AM PDT Station ID: [id number]
[2020-06-28 11:57] LABS: BASOPHILS # (AUTO) 0.1 10^3/uL (0.0-0.1); BASOPHILS % (AUTO) 0.7 %; EOSINOPHILS # (AUTO) 0.1 10^3/uL (0.0-0.7); EOSINOPHILS % (AUTO) 1.4 %; LYMPHOCYTES # (AUTO) 1.7 10^3/uL (1.5-3.5); LYMPHOCYTES % (AUTO) 19.3 %; MEAN CORPUSCULAR HEMOGLOBIN 28.4 pg (27.0-31.0); MEAN CORPUSCULAR HGB CONC 33.1 g/dL (32.0-36.0); MEAN CORPUSCULAR VOLUME 85.6 fL (81.0-99.0); MEAN PLATELET VOLUME 10.5 fL (7.9-10.8); MONOCYTES # (AUTO) 0.7 10^3/uL (0.0-1.0); MONOCYTES % (AUTO) 8.2 %; NEUTROPHILS # (AUTO) 6.1 10^3/uL (1.5-6.6); NEUTROPHILS % (AUTO) 70.1 %; PLT - PLATELET COUNT 231 10^3/uL (130-450); RED BLOOD COUNT 4.23 10^6/uL (4.20-5.40); RED CELL DISTRIBUTION WIDTH 16.1 % (12.0-15.0); WHITE BLOOD COUNT 8.6 x10^3/uL (4.8-10.8)
[2020-06-28 12:11] LABS: ALBUMIN 3.7 g/dL (3.2-5.5); ALBUMIN/GLOBULIN RATIO 1.2 (1.0-2.2); BILIRUBIN,TOTAL 0.7 mg/dL (0.2-1.0); CALCIUM 9.4 mg/dL (8.5-10.3); CREATININE 0.8 mg/dL (0.4-1.0); TOTAL PROTEIN 6.7 g/dL (6.7-8.2)
[2020-06-28 12:46] LABS: BILIRUBIN,URINE NEGATIVE (NEGATIVE); GLUCOSE, URINE (UA) NEGATIVE (NEGATIVE); KETONES,URINE (UA) NEGATIVE (NEGATIVE); LEUKOCYTE ESTERASE, URINE NEGATIVE (NEGATIVE); NITRITE,URINE NEGATIVE (NEGATIVE); OCCULT BLOOD,URINE NEGATIVE (NEGATIVE); PH,URINE 5.5 PH (5.0-7.5); PROTEIN,URINE NEGATIVE (NEGATIVE); UROBILINOGEN,URINE 0.2 (NORMAL) E.U./dL (NORMAL)
[2020-06-28 12:47] LABS: CLARITY,URINE CLEAR (CLEAR)
[2020-06-28] MEDS ORDERED: ACETAMINOPHEN 325 MG TABLET PO STA (13:47)
[2020-06-28 13:55] VITALS: BP 179/100
== END 2020-06-28 14:15 | disposition home or self-care (01) ==
LOC: ED 10:31
DX: M19.90 Unspecified osteoarthritis, unspecified site (principal); M79.10 Myalgia, unspecified site; I10 Essential (primary) hypertension; E11.9 Type 2 diabetes mellitus without complications; Z95.1 Presence of aortocoronary bypass graft
CPT/HCPCS: 36415; 71045; 80053; 81003; 83690; 85025; 93005; 99284; A9270; 81001; 87086

== ENCOUNTER 2020-08-26 09:55 | Emergency (ER) | payer MEDICARE, OTHER ==
[2020-08-26 10:08] VITALS: BP 137/66
[2020-08-26] MEDS ORDERED: KETOROLAC 15 MG/ML VIAL IM STA (11:15)
--- NOTE | 2020-08-26 11:18 | ED Physician Documentation ---
History of Present Illness - Stated complaint Stated Complaint: BODY PX - Chief complaint Chief Complaint: Ext Problem - History obtained from History obtained from: Patient - Additonal information Additional information: 84-year-old woman with past medical history of chronic shoulder pain, multiple back surgeries, presents with bilateral arm pain that is chronic but worsened acutely this morning upon waking, associated with chronic weakness in the hands. Patient states she has had multiple MRIs in the past and does have spinal stenosis. She does not want any further surgery but does want pain relief.Denies trauma or fever Review of Systems Constitutional: reports: Myalgias. 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 : Renal insuffiency HEENT: Chronic hearing loss Psych: Depression Musculoskeletal: Osteoarthritis, Chronic back pain Derm: Other - Past Surgical History Past Surgical History: Yes General: Cholecystectomy, Other Ortho: 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 Cardiovascular: CABG - Present Medications Home Medications: Ambulatory Orders Medication Instructions Recorded Confirmed Mirtazapine 45 mg PO QPM 11/13/17 05/14/20 Spironolactone 50 mg PO DAILY 11/13/17 05/14/20 Tramadol HCl 50 - 100 mg PO TID PRN 11/13/17 05/14/20 Valsartan [Diovan] 40 mg PO QPM 11/13/17 05/14/20 Acetaminophen/Diphenhydramine 1 tab PO QPM PRN 03/12/18 05/14/20 [Tylenol Pm Ex-Strength Caplet] Cholecalciferol [Vitamin D3] 5,000 units PO DAILY 03/12/18 05/14/20 Diazepam 1 - 2 mg PO DAILY PRN 03/12/18 05/14/20 Docusate Sodium 100 mg PO DAILY PRN 03/12/18 05/14/20 Folic Acid 400 mcg PO DAILY 03/12/18 05/14/20 Lidocaine Patch 5% [Lidoderm Patch] 1 patch TOP DAILY PRN 03/12/18 05/14/20 Nitroglycerin [Nitrostat] 0.4 mg PO Q5M PRN 03/12/18 03/12/18 Red Yeast Rice 1,200 mg PO DAILY 03/12/18 05/14/20 Triamcinolone 0.1% Cream [Kenalog 1 applic TOP BID PRN 03/12/18 05/14/20 0.1% Cream] Ubidecarenone [Co Q-10] 10 mg PO DAILY 03/12/18 05/14/20 Pantoprazole [Protonix] 40 mg PO BID #120 tablet 03/13/18 05/14/20 Cephalexin [Keflex] 500 mg PO TID #18 capsule 02/13/20 05/14/20 Phenazopyridine HCl [Pyridium] 100 mg PO TID PRN #15 tablet 02/13/20 05/14/20 Metoprolol Tartrate 25 mg PO BID 05/14/20 05/14/20 - Allergies Allergies/Adverse Reactions: Allergies Allergy/AdvReac Type Severity Reaction Status Date / Time meperidine HCl * Allergy Severe Respiratory Verified 08/26/20 10:07 [From Demerol] pain meds Allergy Intermediate Nausea Uncoded 08/26/20 10:07 preservatives in lidocaine Allergy Intermediate Respiratory Uncoded 08/26/20 10:07 preservatives in medications Allergy Intermediate Respiratory Uncoded 08/26/20 10:07 - Social History Does the pt smoke?: No Smoking Status: Never smoker Does the pt drink ETOH?: No Does the pt have substance abuse?: Yes - Immunizations Immunizations are current?: Yes - POLST Patient has POLST: Yes POLST Status: Full Code PD ED PE NORMAL - Vitals Vital signs reviewed: Yes - General General: Alert and oriented X 3 - HEENT HEENT: Atraumatic, PERRL, EOMI - Extremities Extremities: Other (Decreased range of motion of bilateral shoulders. Tender with range of motion.) Results - Vitals Vitals: Vital Signs - 24 hr 08/26/20 10:05 Temperature 36.4 C L Heart Rate 59 L Respiratory 18 Rate Blood Pressure 137/66 H O2 Saturation 99 Oxygen O2 Source Room air PD MEDICAL DECISION MAKING - ED course ED course: 84-year-old woman presents with chronic bilateral shoulder pain that was worsening this morning, atraumatic. She states that this has been ongoing for a long time and she also has chronic weakness and has had multiple back surgeries and refuses to undergo any other surgeries. We discussed the possibility of spinal stenosis and she is understanding of this and just wants pain relief. she has had mri/surgery in past and does not want further work-up /does not want surgery. I advised her that Toradol increases her risk of bleeding so she does have awareness that this medication can have that effect and she says that she would like to do it anyway with full understanding that she should monitor herself for any signs of bleeding especially rectal bleeding. She would like to go home so that she can rest in her own space. States that she has multiple caregivers that will continue to monitor her. Strict return precautions given. Patient will follow up with her orthopedist.. Departure - Departure Disposition: Home, Self Care Clinical Impression: Shoulder pain, bilateral Condition: Stable Instructions: Shoulder Probs Comments: You have been seen in the emergency department for bilateral shoulder pain. You were given Toradol, and anti-inflammatory medication. Monitor yourself for any signs of bleeding and if you have anything then please return to the ED immediately. Follow-up with your primary for referral to an orthopedist and with physical therapy. Return for any new or worsening symptoms. Discharge Date/Time: 08/26/20 12:15
== END 2020-08-26 12:15 | disposition home or self-care (01) ==
LOC: ED 09:55
DX: M79.602 Pain in left arm (principal); M79.601 Pain in right arm; I13.0 Hypertensive heart and chronic kidney disease with heart failure and stage 1 through stage 4 chronic kidney disease, or unspecified chronic kidney disease; I50.9 Heart failure, unspecified; N18.9 Chronic kidney disease, unspecified; E11.22 Type 2 diabetes mellitus with diabetic chronic kidney disease; Z95.1 Presence of aortocoronary bypass graft
CPT/HCPCS: 96372; 99283

== ENCOUNTER 2020-10-20 09:02 | Outpatient (CLI) | payer MEDICARE, OTHER | END 2020-10-20 09:03 | disposition home or self-care (01) | LOC: DI 09:02 | PROVIDERS: ATTEND Internal Medicine | DX: I50.9 Heart failure, unspecified (principal); I08.0 Rheumatic disorders of both mitral and aortic valves | CPT/HCPCS: 93306 ==

== ENCOUNTER 2020-11-07 16:23 | Outpatient (CLI) | payer MEDICARE, OTHER ==
[2020-11-07 19:56] LABS: ALBUMIN 4.1 g/dL (3.2-5.5); ALBUMIN/GLOBULIN RATIO 1.3 (1.0-2.2); BASOPHILS # (AUTO) 0.1 10^3/uL (0.0-0.1); BASOPHILS % (AUTO) 0.7 %; BILIRUBIN,TOTAL 0.9 mg/dL (0.2-1.0); CALCIUM 9.2 mg/dL (8.5-10.3); CREATININE 1.2 mg/dL (0.4-1.0); EOSINOPHILS # (AUTO) 0.2 10^3/uL (0.0-0.7); EOSINOPHILS % (AUTO) 2.5 %; HCT - HEMATOCRIT 36.1 % (37.0-47.0); HGB - HEMOGLOBIN 11.6 g/dL (12.0-16.0); LYMPHOCYTES # (AUTO) 1.9 10^3/uL (1.5-3.5); LYMPHOCYTES % (AUTO) 21.9 %; MEAN CORPUSCULAR HEMOGLOBIN 30.4 pg (27.0-31.0); MEAN CORPUSCULAR HGB CONC 32.1 g/dL (32.0-36.0); MEAN CORPUSCULAR VOLUME 94.8 fL (81.0-99.0); MEAN PLATELET VOLUME 11.3 fL (7.9-10.8); MONOCYTES # (AUTO) 0.7 10^3/uL (0.0-1.0); MONOCYTES % (AUTO) 8.5 %; NEUTROPHILS # (AUTO) 5.8 10^3/uL (1.5-6.6); NEUTROPHILS % (AUTO) 66.1 %; PLT - PLATELET COUNT 228 10^3/uL (130-450); POTASSIUM 4.5 mmol/L (3.5-5.0); RED BLOOD COUNT 3.81 10^6/uL (4.20-5.40); RED CELL DISTRIBUTION WIDTH 13.5 % (12.0-15.0); TOTAL PROTEIN 7.2 g/dL (6.7-8.2); WHITE BLOOD COUNT 8.7 x10^3/uL (4.8-10.8)
[2020-11-07 20:30] LABS: ESTIMATED AVERAGE GLUCOSE 160 mg/dL (70-100); HEMOGLOBIN A1c% 7.2 % (4.27-6.07)
== END 2020-11-07 16:24 | disposition home or self-care (01) ==
LOC: LAB.S 16:23
PROVIDERS: ATTEND Internal Medicine
DX: I10 Essential (primary) hypertension (principal); E11.9 Type 2 diabetes mellitus without complications
CPT/HCPCS: 36415; 80053; 83036; 85025

== ENCOUNTER 2021-02-06 09:22 | Outpatient (CLI) | payer MEDICARE, OTHER ==
[2021-02-06 20:24] LABS: ESTIMATED AVERAGE GLUCOSE 169 mg/dL (70-100); HEMOGLOBIN A1c% 7.5 % (4.27-6.07)
== END 2021-02-06 09:23 | disposition home or self-care (01) ==
LOC: LAB.S 09:22
PROVIDERS: ATTEND Internal Medicine
DX: E11.9 Type 2 diabetes mellitus without complications (principal)
CPT/HCPCS: 36415; 83036

== ENCOUNTER 2021-03-19 08:00 | Outpatient (CLI) | payer MEDICARE, OTHER ==
--- NOTE | 2021-03-19 13:54 | XRAY Report ---
PROCEDURE: Ribs w/PA Chest LT INDICATIONS: CONTUSION OF LEFT FRONT WALL OF THORAX TECHNIQUE: 3 views of the left ribs were acquired, along with a single view chest. COMPARISON: Chest x-ray 06/20/2020 FINDINGS: Surgical changes and devices: Sternal wires are present. Bones and chest wall: No fractures or dislocations. No suspicious bony lesions. Overlying soft tis sues appear unremarkable. Multilevel degenerative changes are present within the visualized thoracol umbar spine. Lungs and pleura: No pleural effusions or pneumothorax. Lungs appear clear. Mediastinum: Mediastinal contours appear normal. Heart size is mildly prominent. IMPRESSION: No visualized acute fracture or dislocation. However, occult injury cannot be excluded. Recommend linda rt interval imaging follow-up in 7-10 days as clinically indicated for additional evaluation. Reviewed by: Bhavana Champagne MD on 03/19/2021 1:53 PM PDT Approved by: Bhavana Champagne MD on 03/19/2021 1:53 PM PDT Station ID: [id number]
== END 2021-03-19 23:59 | disposition home or self-care (01) ==
LOC: DI.S 08:00
PROVIDERS: ATTEND Physician Assistant Medical
DX: S20.212A Contusion of left front wall of thorax, initial encounter (principal)

== ENCOUNTER 2021-03-19 20:41 | Outpatient (CLI) | payer MEDICARE, OTHER | END 2021-03-19 20:42 | disposition EMS.NT | LOC: EMS 20:41 | DX: R07.81 Pleurodynia (principal) ==

== ENCOUNTER 2021-04-05 13:37 | Outpatient (CLI) | payer MEDICARE, OTHER ==
--- NOTE | 2021-04-05 14:24 | XRAY Report ---
PROCEDURE: Hip w/Pelvis 1V RT INDICATIONS: RIGHT HIP MUSCLE STRAIN TECHNIQUE: AP pelvis with AP and lateral views of the right hip. COMPARISON: None. FINDINGS: Bones: There is generalized osteopenia. No fractures or acute or dislocations. Mild degenerative ch anges are seen in the hips bilaterally. Pelvic ring appears intact. No suspicious bony lesions. Pos t surgical changes as well as degenerative changes are seen in the lower lumbar spine. Soft tissues: The visualized bowel gas pattern is normal. No suspicious soft tissue calcifications. Arterial vascular calcifications are present. IMPRESSION: No acute osseous abnormality. Mild degenerative changes in the hips. Degenerative and po stsurgical changes noted in the lumbar spine. If symptoms persist or there is continued clinical concern, further evaluation with MRI or CT may be helpful. Reviewed by: Gabriel Drake MD on 04/05/2021 2:22 PM PDT Approved by: Gabriel Drake MD on 04/05/2021 2:22 PM PDT Station ID: [id number]
== END 2021-04-05 23:59 | disposition home or self-care (01) ==
LOC: DI.S 13:37
PROVIDERS: ATTEND Emergency Medicine
DX: S76.011A Strain of muscle, fascia and tendon of right hip, initial encounter (principal); M16.0 Bilateral primary osteoarthritis of hip; M47.816 Spondylosis without myelopathy or radiculopathy, lumbar region

== ENCOUNTER 2021-05-01 09:32 | Outpatient (CLI) | payer MEDICARE, OTHER ==
[2021-05-01 15:14] LABS: BASOPHILS # (AUTO) 0.1 10^3/uL (0.0-0.1); BASOPHILS % (AUTO) 1.2 %; EOSINOPHILS # (AUTO) 0.2 10^3/uL (0.0-0.7); EOSINOPHILS % (AUTO) 3.2 %; HCT - HEMATOCRIT 38.4 % (37.0-47.0); HGB - HEMOGLOBIN 11.9 g/dL (12.0-16.0); LYMPHOCYTES # (AUTO) 1.4 10^3/uL (1.5-3.5); LYMPHOCYTES % (AUTO) 19.7 %; MEAN CORPUSCULAR HEMOGLOBIN 27.9 pg (27.0-31.0); MEAN CORPUSCULAR VOLUME 89.9 fL (81.0-99.0); MEAN PLATELET VOLUME 11.3 fL (7.9-10.8); MONOCYTES # (AUTO) 0.4 10^3/uL (0.0-1.0); MONOCYTES % (AUTO) 6.2 %; NEUTROPHILS # (AUTO) 4.8 10^3/uL (1.5-6.6); NEUTROPHILS % (AUTO) 69.3 %; PLT - PLATELET COUNT 204 10^3/uL (130-450); RED BLOOD COUNT 4.27 10^6/uL (4.20-5.40); RED CELL DISTRIBUTION WIDTH 17.1 % (12.0-15.0); WHITE BLOOD COUNT 6.9 x10^3/uL (4.8-10.8)
[2021-05-01 15:27] LABS: ALBUMIN 4.1 g/dL (3.2-5.5); ALBUMIN/GLOBULIN RATIO 1.5 (1.0-2.2); BILIRUBIN,TOTAL 0.9 mg/dL (0.2-1.0); CALCIUM 8.9 mg/dL (8.5-10.3); CREATININE 1.3 mg/dL (0.4-1.0); POTASSIUM 4.6 mmol/L (3.5-5.0); TOTAL PROTEIN 6.9 g/dL (6.7-8.2)
[2021-05-01 20:28] LABS: ESTIMATED AVERAGE GLUCOSE 157 mg/dL (70-100); HEMOGLOBIN A1c% 7.1 % (4.27-6.07)
== END 2021-05-01 09:33 | disposition home or self-care (01) ==
LOC: LAB.S 09:32
PROVIDERS: ATTEND Internal Medicine
DX: I10 Essential (primary) hypertension (principal); E07.9 Disorder of thyroid, unspecified
CPT/HCPCS: 36415; 80053; 83036; 85025

== ENCOUNTER 2021-07-13 09:38 | Outpatient (CLI) | payer MEDICARE, OTHER ==
[2021-07-13 15:47] LABS: CALCIUM 9.4 mg/dL (8.5-10.3); POTASSIUM 4.4 mmol/L (3.5-5.0)
== END 2021-07-13 09:39 | disposition home or self-care (01) ==
LOC: LAB.S 09:38
PROVIDERS: ATTEND Internal Medicine Cardiovascular Disease
DX: I35.0 Nonrheumatic aortic (valve) stenosis (principal); I50.32 Chronic diastolic (congestive) heart failure; I25.810 Atherosclerosis of coronary artery bypass graft(s) without angina pectoris
CPT/HCPCS: 36415; 80048; 83880

== ENCOUNTER 2021-08-06 09:22 | Outpatient (CLI) | payer MEDICARE, OTHER ==
[2021-08-06 15:02] LABS: BASOPHILS # (AUTO) 0.1 10^3/uL (0.0-0.1); BASOPHILS % (AUTO) 0.6 %; EOSINOPHILS # (AUTO) 0.4 10^3/uL (0.0-0.7); EOSINOPHILS % (AUTO) 4.2 %; HCT - HEMATOCRIT 40.1 % (37.0-47.0); HGB - HEMOGLOBIN 12.8 g/dL (12.0-16.0); LYMPHOCYTES # (AUTO) 2.3 10^3/uL (1.5-3.5); LYMPHOCYTES % (AUTO) 24.9 %; MEAN CORPUSCULAR HEMOGLOBIN 28.4 pg (27.0-31.0); MEAN CORPUSCULAR HGB CONC 31.9 g/dL (32.0-36.0); MEAN CORPUSCULAR VOLUME 88.9 fL (81.0-99.0); MEAN PLATELET VOLUME 11.5 fL (7.9-10.8); MONOCYTES # (AUTO) 0.7 10^3/uL (0.0-1.0); MONOCYTES % (AUTO) 7.3 %; NEUTROPHILS # (AUTO) 5.7 10^3/uL (1.5-6.6); NEUTROPHILS % (AUTO) 62.7 %; PLT - PLATELET COUNT 212 10^3/uL (130-450); RED BLOOD COUNT 4.51 10^6/uL (4.20-5.40); WHITE BLOOD COUNT 9.1 x10^3/uL (4.8-10.8)
[2021-08-06 15:34] LABS: ALBUMIN 4.2 g/dL (3.2-5.5); ALBUMIN/GLOBULIN RATIO 1.6 (1.0-2.2); ALKALINE PHOSPHATASE 74 IU/L (42-121); ALT ALANINE AMINOTRANSFERASE 15 IU/L (10-60); AST ASPARTATE AMINOTRANSFERASE 20 IU/L (10-42); BILIRUBIN,TOTAL 0.7 mg/dL (0.2-1.0); BUN - BLOOD UREA NITROGEN 27 mg/dL (6-20); CALCIUM 9.2 mg/dL (8.5-10.3); CARBON DIOXIDE - CO2 22 mmol/L (21-32); CHLORIDE 105 mmol/L (101-111); CHOL/HDL RATIO 7.3 (<4.4); CHOLESTEROL 336 mg/dL; CREATININE 1.1 mg/dL (0.4-1.0); GFR - MDRD 47 (>89); GLUCOSE 162 mg/dL (70-100); HDL CHOLESTEROL 46 mg/dL; POTASSIUM 4.5 mmol/L (3.5-5.0); SODIUM 134 mmol/L (135-145); TOTAL PROTEIN 6.9 g/dL (6.7-8.2); TRIGLYCERIDES 479 mg/dL
[2021-08-06 16:14] LABS: LDL CHOLESTEROL,DIRECT 191 mg/dL; LDLD/HDL RATIO 4.2 (<4.4)
== END 2021-08-06 09:23 | disposition home or self-care (01) ==
LOC: LAB.S 09:22
PROVIDERS: ATTEND Registered Nurse
DX: K21.00 Gastro-esophageal reflux disease with esophagitis, without bleeding (principal); G44.89 Other headache syndrome; R26.81 Unsteadiness on feet; R42 Dizziness and giddiness; Z79.899 Other long term (current) drug therapy; I11.0 Hypertensive heart disease with heart failure; I50.9 Heart failure, unspecified
CPT/HCPCS: 36415; 80053; 80061; 83721; 84443; 85025

== ENCOUNTER 2021-10-17 11:37 | Outpatient (CLI) | payer MEDICARE, OTHER ==
[2021-10-17 19:45] LABS: ESTIMATED AVERAGE GLUCOSE 174 mg/dL (70-100); HEMOGLOBIN A1c% 7.7 % (4.27-6.07)
== END 2021-10-17 11:38 | disposition home or self-care (01) ==
LOC: LAB.S 11:37
PROVIDERS: ATTEND Nurse Practitioner
DX: E11.65 Type 2 diabetes mellitus with hyperglycemia (principal)
CPT/HCPCS: 36415; 83036

== ENCOUNTER 2021-11-05 08:34 | Outpatient (CLI) | payer MEDICARE, OTHER ==
[2021-11-05 15:34] LABS: CALCIUM 9.2 mg/dL (8.5-10.3); CREATININE 1.1 mg/dL (0.4-1.0); POTASSIUM 4.4 mmol/L (3.5-5.0)
[2021-11-05 16:49] LABS: ESTIMATED AVERAGE GLUCOSE 163 mg/dL (70-100); HEMOGLOBIN A1c% 7.3 % (4.27-6.07)
== END 2021-11-05 08:35 | disposition home or self-care (01) ==
LOC: LAB.S 08:34
PROVIDERS: ATTEND Registered Nurse
DX: E11.9 Type 2 diabetes mellitus without complications (principal)
CPT/HCPCS: 36415; 80048; 82043; 82570; 83036

== ENCOUNTER 2021-11-07 14:51 | Outpatient (CLI) | payer MEDICARE, OTHER ==
[2021-11-07 20:16] LABS: MICROALBUM/CREATININE RATIO,UR 7.7 ug/mg (<30.0); MICROALBUMIN,URINE 1.2 mg/dL (0-300.0)
== END 2021-11-07 14:52 | disposition home or self-care (01) ==
LOC: LAB.S 14:51
PROVIDERS: ATTEND Registered Nurse
DX: E11.9 Type 2 diabetes mellitus without complications (principal)
CPT/HCPCS: 82043; 82570

== ENCOUNTER 2022-01-08 14:23 | Emergency (ER) | payer MEDICARE, OTHER ==
--- OUTSIDE RECORDS SUMMARY | 2022-01-08 14:41 | EXTERNAL MEDICAL SUMMARY RPT | Continuity of Care Document ---
:1935 Author Organization [facility] Address [address] [id number] Phone Allergies No information. Encounters No information. Medications No information. Problems date description facility [id number] Unspecified dementia with behavioral [facility] disturbance [id number] Syncope and collapse [facility] [id number] Nonrheumatic aortic (valve) stenosis [facility] [id number] Fall [facility] [id number] Essential (primary) hypertension [facility] [id number] Dizziness [facility] [id number] Chronic diastolic (congestive) heart [facility] failure [id number] Bradycardia, unspecified [facility] [id number] Bradycardia [facility] [id number] Acute kidney failure, unspecified [facility] Results No information.
[2022-01-08 15:07] LABS: BASOPHILS % (AUTO) 0.6 %; EOSINOPHILS # (AUTO) 0.1 10^3/uL (0.0-0.7); EOSINOPHILS % (AUTO) 0.8 %; HCT - HEMATOCRIT 38.5 % (37.0-47.0); HGB - HEMOGLOBIN 12.8 g/dL (12.0-16.0); LYMPHOCYTES # (AUTO) 1.3 10^3/uL (1.5-3.5); LYMPHOCYTES % (AUTO) 19.3 %; MEAN CORPUSCULAR HEMOGLOBIN 30.6 pg (27.0-31.0); MEAN CORPUSCULAR HGB CONC 33.2 g/dL (32.0-36.0); MEAN CORPUSCULAR VOLUME 92.1 fL (81.0-99.0); MEAN PLATELET VOLUME 11.3 fL (7.9-10.8); MONOCYTES # (AUTO) 0.8 10^3/uL (0.0-1.0); MONOCYTES % (AUTO) 12.6 %; NEUTROPHILS # (AUTO) 4.3 10^3/uL (1.5-6.6); NEUTROPHILS % (AUTO) 66.5 %; PLT - PLATELET COUNT 166 10^3/uL (130-450); RED BLOOD COUNT 4.18 10^6/uL (4.20-5.40); RED CELL DISTRIBUTION WIDTH 13.2 % (12.0-15.0); WHITE BLOOD COUNT 6.5 x10^3/uL (4.8-10.8)
--- NOTE | 2022-01-08 15:07 | ED Physician Documentation ---
PD HPI HEADACHE - Stated complaint Stated Complaint: HEAD PX/LETHARGIC - Chief complaint Chief Complaint: Neuro - History obtained from History obtained from: Patient, Friend - History of Present Illness Timing - onset: How many days ago (1-2) Timing - onset during: Rest Timing - details: Gradual onset (she had noted some pain right jain area intermittent, sharp pains for couple of days, with increased intensity this afternoon at lunchtime. Recent admission to [facility] for lightheadedness/vertigo, per patient. Did not have the headache at that time though.) Worst headache ever?: Worst headache ever? (she states severe sharp intermittent pain right jain area, increasing for couple of days.) Location: Right (local to the jain area) Quality: Stabbing (sharp) Associated symptoms: Other (reports vertigo and lightheaded symptoms last week and seen at [facility], there for 2 days, and she/friend state ECHO, eval neck U/S, head CT/? MRI. Did not have the headache at that time though.). No: Fever, Stiff neck, Nausea, Vomiting, Weakness, Numbness, Vision changes Improved by: No: Rest Worsened by: No: Light, Noise Contributing factors: No: Anticoagulated, Recent illness Similar symptoms before: Has not had sx before Recently seen: Emergency Dept, Admitted ([facility] in the past week for dizziness.) Review of Systems Constitutional: denies: Fever, Chills Eyes: denies: Loss of vision, Decreased vision, Photophobia Nose: denies: Rhinorrhea / runny nose, Congestion Throat: denies: Sore throat Respiratory: denies: Cough Skin: denies: Rash, Lesions Neurologic: reports: Headache (local to right jain area.). denies: Focal weakness, Numbness, Altered mental status PD PAST MEDICAL HISTORY - Past Medical History Cardiovascular: Congestive heart failure, Hypertension, Coronary artery disease, Valve disorder Respiratory: Shortness of breath Neuro: Dementia, Other (no migraines nor cluster headaches. ) Endocrine/Autoimmune: Type 2 diabetes GI: GERD, Hiatal hernia, Diverticulitis SECTIONIZER: None : Renal insuffiency HEENT: Chronic hearing loss Psych: Depression Musculoskeletal: Osteoarthritis, Chronic back pain Derm: Other - Past Surgical History Past Surgical History: Yes General: Cholecystectomy, Other Ortho: Spine surgery /SECTIONIZER: 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 Cardiovascular: CABG - Present Medications Home Medications: Ambulatory Orders Medication Instructions Recorded Confirmed Mirtazapine 45 mg PO QPM 11/13/17 05/14/20 Spironolactone 50 mg PO DAILY 11/13/17 05/14/20 Tramadol HCl 50 - 100 mg PO TID PRN 11/13/17 05/14/20 Valsartan [Diovan] 40 mg PO QPM 11/13/17 05/14/20 Acetaminophen/Diphenhydramine 1 tab PO QPM PRN 03/12/18 05/14/20 [Tylenol Pm Ex-Strength Caplet] Cholecalciferol [Vitamin D3] 5,000 units PO DAILY 03/12/18 05/14/20 Diazepam 1 - 2 mg PO DAILY PRN 03/12/18 05/14/20 Docusate Sodium 100 mg PO DAILY PRN 03/12/18 05/14/20 Folic Acid 400 mcg PO DAILY 03/12/18 05/14/20 Lidocaine Patch 5% [Lidoderm Patch] 1 patch TOP DAILY PRN 03/12/18 05/14/20 Nitroglycerin [Nitrostat] 0.4 mg PO Q5M PRN 03/12/18 03/12/18 Red Yeast Rice 1,200 mg PO DAILY 03/12/18 05/14/20 Triamcinolone 0.1% Cream [Kenalog 1 applic TOP BID PRN 03/12/18 05/14/20 0.1% Cream] Ubidecarenone [Co Q-10] 10 mg PO DAILY 03/12/18 05/14/20 Pantoprazole [Protonix] 40 mg PO BID #120 tablet 03/13/18 05/14/20 Phenazopyridine HCl [Pyridium] 100 mg PO TID PRN #15 tablet 02/13/20 05/14/20 cephALEXin [Keflex] 500 mg PO TID #18 capsule 02/13/20 05/14/20 Metoprolol Tartrate 25 mg PO BID 05/14/20 05/14/20 Acetaminophen [Acetaminophen Extra 500 mg PO QID 10 Days #40 tablet 01/08/22 Strength] dexAMETHasone [Decadron] 4 mg PO DAILY 6 Days #6 tablet 01/08/22 - Allergies Allergies/Adverse Reactions: Allergies Allergy/AdvReac Type Severity Reaction Status Date / Time meperidine HCl * Allergy Severe Respiratory Verified 01/08/22 14:39 [From Demerol] pain meds Allergy Intermediate Nausea Uncoded 01/08/22 14:39 preservatives in lidocaine Allergy Intermediate Respiratory Uncoded 01/08/22 14:39 preservatives in medications Allergy Intermediate Respiratory Uncoded 01/08/22 14:39 - Social History Does the pt smoke?: No Smoking Status: Never smoker Does the pt drink ETOH?: No Does the pt have substance abuse?: Yes - Immunizations Immunizations are current?: Yes - POLST Patient has POLST: Yes POLST Status: Full Code PD ED PE NORMAL - Vitals Vital signs reviewed: Yes - General General: Alert and oriented X 3, No acute distress, Well developed/nourished - HEENT HEENT: PERRL, EOMI, Moist mucous membranes - Neck Neck: Supple, no meningeal sign, No adenopathy, No bruit - Cardiac Cardiac: RRR, No murmur - Respiratory Respiratory: Clear bilaterally - Abdomen Abdomen: Soft, Non tender - Derm Derm: Normal color, Warm and dry, No rash (no noted redness, blisters, rash on side of face/head. There is mild tenderness right jain area, but fairly mild/minimal. ) - Neuro Neuro: Alert and oriented X 3, junior paralegal 2-12 intact, No motor deficit, No sensory deficit, Normal speech, Other Results - Vitals Vitals: Vital Signs - 24 hr 01/08/22 01/08/22 14:31 16:45 Temperature 36.4 C L Heart Rate 79 85 Respiratory 14 17 Rate Blood Pressure 127/107 H 135/85 H O2 Saturation 100 99 Oxygen O2 Source Room air - Labs Labs: Laboratory Tests 01/08/22 01/08/22 01/08/22 15:01 15:01 15:01 WBC 6.5 RBC 4.18 L Hgb 12.8 Hct 38.5 MCV 92.1 MCH 30.6 MCHC 33.2 RDW 13.2 Plt Count 166 MPV 11.3 H Neut # (Auto) 4.3 Lymph # (Auto) 1.3 L Izard # (Auto) 0.8 Eos # (Auto) 0.1 Baso # (Auto) 0.0 Absolute Nucleated RBC 0.00 Nucleated RBC % 0.0 ESR 31 H Sodium 136 Potassium 3.8 Chloride 105 Carbon Dioxide 19 L Anion Gap 12.0 BUN 28 H Creatinine 1.5 H Estimated GFR (MDRD) 33 L Glucose 112 H Calcium 9.3 Total Bilirubin 0.7 AST 42 ALT 36 Alkaline Phosphatase 171 H C-Reactive Protein 8.3 H Total Protein 7.4 Albumin 4.1 Globulin 3.3 Albumin/Globulin Ratio 1.2 - Rads (name of study) head CT Radiology: Prelim report reviewed (no acute intracranial findings. ), See rad report PD MEDICAL DECISION MAKING - ED course Complexity details: reviewed old records ([facility] called for records from [facility] for recent admission there but not forwarded after almost 2 hours. ), reviewed results (head CT without acute intracranial findings. ), considered differential (head CT normal. Has temporal pain with mild local tenderness. No visual changes. No rash nor sores to suggest shingles/etc. ELevated ESR/CRP, so concern for arteritis. ), d/w patient, other (Talked with Dr. Mac, Surgery, who says he does not do temporal artery biopsies. Refers to ? Vascular surgery. contacted Emily by text and he will see patient in office tomorrow/next day for biopsy. ) Departure - Departure Disposition: Home, Self Care Clinical Impression: Right temporal headache Condition: Stable Record reviewed to determine appropriate education?: Yes Instructions: ED Cephalgia Unspecified Follow-Up: Magdiel Phelan MD [Provider Admit Priv/Credential] - Yue Valverde ARNP [Credentialed Staff Provider] - Prescriptions: Acetaminophen [Acetaminophen Extra Strength] 500 mg PO QID 10 Days #40 tablet dexAMETHasone [Decadron] 4 mg PO DAILY 6 Days #6 tablet Comments: We are worried about the possibility of inflammation of the temporal artery and other arteries echo to the face and head. Your pain is in a location to suggest that and couple of your blood tests measuring inflammation are elevated. The definitive way to tell is a small punch biopsy of the artery in that area. This can be done at a scheduled appointment by the general surgeon. Call Dr. Diaz' office tomorrow early in the morning and let them know that you were seen here in the ER and we talked directly with Dr. Diaz and he wants prompt follow-up for a temporal artery biopsy. They should get you a sooner appointment for that. Meanwhile we will treat with acetaminophen 4 times daily for the next 7 to 10 days for alleviating this discomfort. Also Decadron steroid daily for the next 6 days until we find out for sure if this is a vasculitis. Return if you have worsening symptoms. I transmitted your prescriptions to [facility] in [place]. Discharge Date/Time: 01/08/22 16:45
[2022-01-08 15:24] LABS: ALBUMIN 4.1 g/dL (3.2-5.5); ALBUMIN/GLOBULIN RATIO 1.2 (1.0-2.2); BILIRUBIN,TOTAL 0.7 mg/dL (0.2-1.0); CALCIUM 9.3 mg/dL (8.5-10.3); CREATININE 1.5 mg/dL (0.4-1.0); CRP - C-REACTIVE PROTEIN 8.3 mg/dL (0-1.0); POTASSIUM 3.8 mmol/L (3.5-5.0); TOTAL PROTEIN 7.4 g/dL (6.7-8.2)
--- NOTE | 2022-01-08 15:35 | CT Report ---
PROCEDURE: HEAD WO INDICATIONS: headache TECHNIQUE: Noncontrast 4.5 mm thick angled axial sections acquired from the foramen magnum to the vertex. For r adiation dose reduction, the following was used: automated exposure control, adjustment of mA and/or kV according to patient size. COMPARISON: March [address] FINDINGS: Image quality: Excellent. CSF spaces: Basal cisterns are patent. No extra-axial fluid collections. Ventricles are normal in size and shape. Brain: Similar mild global cerebral volume loss and chronic microvascular ischemic changes when sadie red with the March 2017 exam.. No midline shift. No intracranial masses or hemorrhage. Avery-white ma tter interface is normal. Skull and face: Calvarium and visualized facial bones are intact, without suspicious lesions. Sinuses: Visualized sinuses and mastoids are clear. IMPRESSION: No acute intracranial finding. Reviewed by: Tony Pardo MD on 01/08/2022 3:34 PM PDT Approved by: Tony Pardo MD on 01/08/2022 3:34 PM PDT Station ID: [id number]
[2022-01-08] MEDS ORDERED: CHERRY SYRUP 10 ML UDC PO ONE (16:39)
[2022-01-08] MEDS ORDERED: DEXAMETHASONE 10 MG/ML VIAL PO STA (16:39)
[2022-01-08] MEDS ORDERED: ACETAMINOPHEN 325 MG TABLET PO STA (16:40)
[2022-01-08 17:37] VITALS: BP 135/85
== END 2022-01-08 16:45 | disposition home or self-care (01) ==
LOC: ED 14:23
DX: R51.9 Headache, unspecified (principal)
CPT/HCPCS: 36415; 70450; 80053; 85025; 85651; 86140; 99283; 99284; A9270

== ENCOUNTER 2022-02-28 15:01 | Outpatient (CLI) | payer MEDICARE, OTHER ==
--- NOTE | 2022-02-28 17:56 | XRAY Report ---
PROCEDURE: Hand 2 View BILAT INDICATIONS: INJURY OF MEDIAN NERVE AT WRIST AND HAND TECHNIQUE: 2 views of the hand(s) acquired. COMPARISON: None FINDINGS: Bones: Moderate to severe osteoarthritic changes throughout bilateral hand and wrist joints are seen particularly involving left first CMC joint, left third through fifth PIP and DIP joints, right secon d through fifth PIP and DIP joints. No acute fracture or dislocation. No suspicious bony lesion. Diff use osteopenia is seen. Soft tissues: No suspicious soft tissue calcifications. IMPRESSION: Moderate to severe osteoarthritic changes in bilateral hands as above. No acute fracture or dislocati on. Disuse osteopenia. Reviewed by: Anthony Conde MD on 02/28/2022 5:55 PM PDT Approved by: Anthony Conde MD on 02/28/2022 5:55 PM PDT Station ID: [id number]
--- NOTE | 2022-02-28 18:36 | XRAY Report ---
PROCEDURE: Hip w/Pelvis 2-3V RT INDICATIONS: FREQUENT FALLS TECHNIQUE: AP pelvis with lateral view(s) of the right hip(s). COMPARISON: X-ray pelvis with right hip, 04/05/2021. FINDINGS: Bones: No fractures or dislocations. Pelvic ring appears intact. No suspicious bony lesions. Mild bilateral symmetric hip joint degeneration. Postsurgical and degenerative changes at L4-L5. Soft tissues: The visualized bowel gas pattern is normal. Vascular calcifications consistent with at herosclerosis. IMPRESSION: 1. No acute osseous abnormalities. If clinical symptoms persist, recommend advanced imaging such as C T or MRI for further evaluation. 2. Mild degenerative joint disease in hips bilaterally. 3. Postsurgical and degenerative changes in the lower lumbar spine. Reviewed by: Johanna Velasco MD on 02/28/2022 6:34 PM PDT Approved by: Johanna Velasco MD on 02/28/2022 6:34 PM PDT Station ID: [id number]
== END 2022-02-28 15:02 | disposition home or self-care (01) ==
LOC: DI.S 15:01
PROVIDERS: ATTEND Registered Nurse
DX: S64.10XA Injury of median nerve at wrist and hand level of unspecified arm, initial encounter (principal); R29.6 Repeated falls; M19.042 Primary osteoarthritis, left hand; M19.041 Primary osteoarthritis, right hand; M85.842 Other specified disorders of bone density and structure, left hand; M85.841 Other specified disorders of bone density and structure, right hand; M16.0 Bilateral primary osteoarthritis of hip; M47.816 Spondylosis without myelopathy or radiculopathy, lumbar region

== ENCOUNTER 2022-03-13 13:17 | Outpatient (CLI) | payer MEDICARE, OTHER ==
--- NOTE | 2022-03-13 15:35 | CT Report ---
PROCEDURE: HEAD WO INDICATIONS: HX OF CLOSED HEAD INJURY TECHNIQUE: Noncontrast 4.5 mm thick angled axial sections acquired from the foramen magnum to the vertex. For r adiation dose reduction, the following was used: automated exposure control, adjustment of mA and/or kV according to patient size. COMPARISON: 01/08/2022 FINDINGS: Image quality: There is streak artifact seen through the skull base. There is streak artifact from a metallic surgical device posteriorly and on the right. CSF spaces: Basal cisterns are patent. No extra-axial fluid collections. Ventricles are normal in size and shape. Brain: No midline shift. No intracranial masses or hemorrhage. Avery-white matter interface is norm al. Age-appropriate brain parenchymal volume loss and chronic small vessel ischemic change can be se en. Skull and face: Calvarium and visualized facial bones are intact, without suspicious lesions. 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 Sinuses: Visualized sinuses and mastoids are clear. IMPRESSION: Unremarkable intracranial study for age, stable from prior. No findings of intracranial hemorrhage are seen. Reviewed by: Partha Jacob MD on 03/13/2022 2:34 PM KEEGAN Approved by: Partha Jacob MD on 03/13/2022 2:34 PM KEEGAN Station ID: [id number]
== END 2022-03-13 13:18 | disposition home or self-care (01) ==
LOC: DI 13:17
PROVIDERS: ATTEND Registered Nurse
DX: Z87.820 Personal history of traumatic brain injury (principal)

== ENCOUNTER 2022-03-15 11:22 | Outpatient (CLI) | payer MEDICARE, OTHER ==
[2022-03-15 16:06] LABS: CREATININE,URINE 201.6 mg/dL; MICROALBUM/CREATININE RATIO,UR 23.3 ug/mg (<30.0); MICROALBUMIN,URINE 4.7 mg/dL (0-300.0)
[2022-03-15 16:09] LABS: BUN - BLOOD UREA NITROGEN 23 mg/dL (6-20); CALCIUM 9.7 mg/dL (8.5-10.3); CARBON DIOXIDE - CO2 24 mmol/L (21-32); CHLORIDE 110 mmol/L (101-111); CHOL/HDL RATIO 2.5 (<4.4); CHOLESTEROL 162 mg/dL; CREATININE 1.3 mg/dL (0.4-1.0); GFR - MDRD 39 (>89); GLUCOSE 115 mg/dL (70-100); HDL CHOLESTEROL 66 mg/dL; LDL CHOLESTEROL,CALCULATED 59 mg/dL; LDL/HDL RATIO 0.9 (<4.4); POTASSIUM 4.7 mmol/L (3.5-5.0); SODIUM 141 mmol/L (135-145); TRIGLYCERIDES 185 mg/dL; VLDL CHOLESTEROL 37 mg/dL
[2022-03-15 22:00] LABS: ESTIMATED AVERAGE GLUCOSE 128 mg/dL (70-100); HEMOGLOBIN A1c% 6.1 % (4.27-6.07)
== END 2022-03-15 11:23 | disposition home or self-care (01) ==
LOC: LAB.S 11:22
PROVIDERS: ATTEND Nurse Practitioner
DX: E11.65 Type 2 diabetes mellitus with hyperglycemia (principal); E78.2 Mixed hyperlipidemia
CPT/HCPCS: 36415; 80048; 80061; 82043; 82570; 83036; 83721

== ENCOUNTER 2022-03-26 10:22 | Outpatient (CLI) | payer MEDICARE, OTHER | END 2022-03-26 10:23 | disposition critical access hospital (66) | LOC: EMS 10:22 | DX: R07.9 Chest pain, unspecified (principal); R53.1 Weakness | CPT/HCPCS: A0425; A0429 ==

== ENCOUNTER 2022-03-26 10:59 | Emergency (ER) | payer MEDICARE, OTHER ==
[2022-03-26 11:24] LABS: BASOPHILS # (AUTO) 0.1 10^3/uL (0.0-0.1); BASOPHILS % (AUTO) 0.8 %; EOSINOPHILS # (AUTO) 0.1 10^3/uL (0.0-0.7); EOSINOPHILS % (AUTO) 0.7 %; HCT - HEMATOCRIT 37.5 % (37.0-47.0); HGB - HEMOGLOBIN 12.2 g/dL (12.0-16.0); LYMPHOCYTES # (AUTO) 1.1 10^3/uL (1.5-3.5); LYMPHOCYTES % (AUTO) 13.3 %; MEAN CORPUSCULAR HEMOGLOBIN 29.8 pg (27.0-31.0); MEAN CORPUSCULAR HGB CONC 32.5 g/dL (32.0-36.0); MEAN CORPUSCULAR VOLUME 91.7 fL (81.0-99.0); MEAN PLATELET VOLUME 11.4 fL (7.9-10.8); MONOCYTES # (AUTO) 0.8 10^3/uL (0.0-1.0); MONOCYTES % (AUTO) 9.4 %; NEUTROPHILS # (AUTO) 6.4 10^3/uL (1.5-6.6); NEUTROPHILS % (AUTO) 75.4 %; PLT - PLATELET COUNT 162 10^3/uL (130-450); RED BLOOD COUNT 4.09 10^6/uL (4.20-5.40); RED CELL DISTRIBUTION WIDTH 13.6 % (12.0-15.0); WHITE BLOOD COUNT 8.5 x10^3/uL (4.8-10.8)
--- NOTE | 2022-03-26 11:26 | ED Physician Documentation ---
PD HPI CHEST PAIN - Stated complaint Stated Complaint: CP - Chief complaint Chief Complaint: Cardiac - Additional information Additional information: Patient is 86-year-old female presenting to the emergency department with chest pain. Reports persistent chronic chest pain ongoing for several years that is made worse with physical activity. Reports follows with Dr. Andino, cardiology however has not seen him in several years because he recommended further either surgery or stenting for her heart she is not certain which and she declined further treatment. Reports in the past she has used nitroglycerin to help with her symptoms however has been out of this medication for some time. Denies any new specific episode of pain, shortness of breath but reports that her persistent symptoms have become worrisome to her which is what prompted her to come to the emergency department today. Review of Systems Ten Systems: 10 systems reviewed and negative Constitutional: denies: Fever Eyes: denies: Loss of vision Ears: denies: Loss of hearing Nose: denies: Rhinorrhea / runny nose Cardiac: reports: Chest pain / pressure Respiratory: denies: Dyspnea GI: denies: Abdominal Pain PD PAST MEDICAL HISTORY - Past Medical History Cardiovascular: Congestive heart failure, Hypertension, High cholesterol, Coronary artery disease, PA, Arrhythmia, Valve disorder, Other Respiratory: Shortness of breath Neuro: Dementia, Other (no migraines nor cluster headaches. ) Endocrine/Autoimmune: Type 2 diabetes, HyPERthyroidism GI: GERD, Hiatal hernia, Hemorrhoids, Diverticulitis, Other ELIGIBILITY AND OCCUPANCY INTERVIEWER: None : Renal insuffiency, Other HEENT: Chronic vision loss, Chronic hearing loss, Other Psych: Depression, Claustrophobia Musculoskeletal: Osteoarthritis, Chronic back pain Derm: Other - Past Surgical History Past Surgical History: Yes General: Cholecystectomy, Appendectomy, Colonoscopy, EGD, Other Ortho: Rotator cuff repair, Spine surgery, Other /ELIGIBILITY AND OCCUPANCY INTERVIEWER: 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 Cardiovascular: CABG, Coronary stent, Cardiac catheterization, Angioplasty - Present Medications Home Medications: Ambulatory Orders Medication Instructions Recorded Confirmed Valsartan [Diovan] 80 mg PO QPM 11/13/17 01/11/22 Cholecalciferol [Vitamin D3] 2,000 units PO DAILY 03/12/18 01/11/22 Nitroglycerin [Nitrostat] 0.4 mg PO Q5M PRN 03/12/18 01/11/22 Metoprolol Tartrate 12.5 mg PO QPM 05/14/20 01/11/22 Acetaminophen [Acetaminophen Extra 500 mg PO QID 10 Days #40 tablet 01/08/22 01/11/22 Strength] dexAMETHasone [Decadron] 4 mg PO DAILY 6 Days #6 tablet 01/08/22 01/11/22 Amitriptyline [Elavil] 10 mg PO QPM 01/11/22 Aspirin [Aspirin EC] 81 mg PO DAILY 01/11/22 Atorvastatin Calcium 40 mg PO QPM 01/11/22 Cyanocobalamin (Vitamin B-12) 1,000 mcg PO DAILY 01/11/22 [Vitamin B-12] Meloxicam [Mobic] 7.5 mg PO DAILY 01/11/22 metFORMIN [Glucophage] 500 mg PO BIDWM 01/11/22 methIMAzole [Methimazole] 2.5 mg PO DAILY 01/11/22 - Allergies Allergies/Adverse Reactions: Allergies Allergy/AdvReac Type Severity Reaction Status Date / Time meperidine HCl * Allergy Severe Respiratory Verified 03/26/22 11:08 [From Demerol] pain meds Allergy Intermediate Nausea Uncoded 03/26/22 11:08 preservatives in lidocaine Allergy Intermediate Respiratory Uncoded 03/26/22 11:08 preservatives in medications Allergy Intermediate Respiratory Uncoded 03/26/22 11:08 - Social History Does the pt smoke?: No Smoking Status: Never smoker Does the pt drink ETOH?: No Does the pt have substance abuse?: Yes - Immunizations Immunizations are current?: Yes - POLST Patient has POLST: Yes POLST Status: Full Code PD ED PE NORMAL - General General: Alert and oriented X 3 - HEENT HEENT: Atraumatic - Neck Neck: Supple, no meningeal sign - Cardiac Cardiac: RRR, No gallop, Strong equal pulses - Respiratory Respiratory: No respiratory distress - Abdomen Abdomen: Normal bowel sounds, Non tender - Female Female : Deferred - Rectal Rectal: Deferred - Extremities Extremities: No deformity - Neuro Neuro: Alert and oriented X 3, sas bi developer 2-12 intact, No motor deficit, No sensory deficit, Normal speech Results - Vitals Vitals: Vital Signs - 24 hr 03/26/22 03/26/22 03/26/22 11:05 13:00 14:30 Temperature 36.3 C L Heart Rate 64 59 L 63 Respiratory 16 29 H 22 Rate Blood Pressure 113/92 H 103/64 148/80 H O2 Saturation 98 97 99 03/26/22 15:11 Temperature Heart Rate 70 Respiratory 16 Rate Blood Pressure 144/76 H O2 Saturation 99 Oxygen O2 Source Room air - EKG (time done) 1109 Rate: Rate (enter#) (64) Rhythm: Sinus bradycardia [place]: Normal Intervals: RBBB Ischemia: Non specific changes Compare to prior EKG: Changed from prior EKG (Right bundle branch block is new finding in comparison to previous 06/28/2020.) - Labs Labs: Laboratory Tests 03/26/22 03/26/22 03/26/22 11:19 11:19 11:19 WBC 8.5 RBC 4.09 L Hgb 12.2 Hct 37.5 MCV 91.7 MCH 29.8 MCHC 32.5 RDW 13.6 Plt Count 162 MPV 11.4 H Neut # (Auto) 6.4 Lymph # (Auto) 1.1 L Gillespie # (Auto) 0.8 Eos # (Auto) 0.1 Baso # (Auto) 0.1 Absolute Nucleated RBC 0.00 Nucleated RBC % 0.0 Sodium 136 Potassium 4.5 Chloride 106 Carbon Dioxide 20 L Anion Gap 10.0 BUN 20 Creatinine 1.2 H Estimated GFR (MDRD) 43 L Glucose 121 H Calcium 9.1 Total Bilirubin 0.8 AST 43 H ALT 41 Alkaline Phosphatase 191 H Troponin I High Sens 81.8 H* Total Protein 7.0 Albumin 3.9 Globulin 3.1 Albumin/Globulin Ratio 1.3 Lipase 44 03/26/22 03/26/22 12:57 15:21 WBC RBC Hgb Hct MCV MCH MCHC RDW Plt Count MPV Neut # (Auto) Lymph # (Auto) Gillespie # (Auto) Eos # (Auto) Baso # (Auto) Absolute Nucleated RBC Nucleated RBC % Sodium Potassium Chloride Carbon Dioxide Anion Gap BUN Creatinine Estimated GFR (MDRD) Glucose Calcium Total Bilirubin AST ALT Alkaline Phosphatase Troponin I High Sens 76.2 H* 73.6 H* Total Protein Albumin Globulin Albumin/Globulin Ratio Lipase PD MEDICAL DECISION MAKING - ED course Complexity details: reviewed results, considered differential, d/w patient, d/w construction consultant ED course: Is an 86-year-old female presenting to the emergency department with chest pain. Reported history of anginal style chest pain made worse with physical activity that it been unchanged for several years. Afebrile, hemodynamically stable on arrival to the emergency department. Initial EKG demonstrated new right bundle branch block but was negative for any indications of acute cardiac ischemia. Nothing in the patient's presentation is consistent with acute pulmonary emboli. She did have a mild elevation in high-sensitivity troponinWhich down trended while in the emergency department. Patient was offered boarding in the emergency department and/or possible transfer however she adamantly declined this. I discussed her care with her cardiology team at [facility]. At this time and they will arrangeFor follow-up appointment this coming Friday. Patient requests discharge from the emergency department at this time as well. At encouraged to keep her follow-up appointment with her cardiology team as well as to return to the emergency department for any new symptoms. Departure - Departure Disposition: 01 Home, Self Care Clinical Impression: Chest pain, Elevated troponin Comments: Thank you for allowing us to care for you today at [facility]. As we discussed in the emergency department your labs were concerning for a small elevation in troponin, and enzyme that we measure that can indicate injury to heart muscle. This did decrease slightly well in the emergency department however I am concerned that your coronary artery disease may be responsible for this finding. I did contact your cardiology team and they have made an appointment for you for follow-up. Please present to their office this coming Thursday 03/29 at 12:30 PM. If it anytime you have any new or worsening symptoms please return to the emergency department immediately. Discharge Date/Time: 03/26/22 16:05
[2022-03-26 11:41] LABS: ALBUMIN 3.9 g/dL (3.2-5.5); ALBUMIN/GLOBULIN RATIO 1.3 (1.0-2.2); BILIRUBIN,TOTAL 0.8 mg/dL (0.2-1.0); CALCIUM 9.1 mg/dL (8.5-10.3); CREATININE 1.2 mg/dL (0.4-1.0); POTASSIUM 4.5 mmol/L (3.5-5.0)
--- NOTE | 2022-03-26 11:41 | XRAY Report ---
PROCEDURE: Chest 1 View X-Ray INDICATIONS: Chest pain TECHNIQUE: One view of the chest was acquired. COMPARISON: 06/28/2020 FINDINGS: Surgical changes and devices: Sternotomy wires. Surgical clips project over the right upper chest. Lungs and pleura: No pleural effusions or pneumothorax. Lungs are clear. Lung volumes are low. Mediastinum: Mediastinal contours appear normal. Heart size is normal. Bones and chest wall: No suspicious bony lesions. Overlying soft tissues appear unremarkable. IMPRESSION: No acute cardiothoracic abnormality. Reviewed by: Edgardo Nelson MD on 03/26/2022 11:40 AM PDT Approved by: Edgardo Nelson MD on 03/26/2022 11:40 AM PDT Station ID: [id number]
[2022-03-26 15:12] VITALS: BP 144/76
== END 2022-03-26 16:05 | disposition home or self-care (01) ==
LOC: EDUNIT# → ED 10:59
DX: R07.9 Chest pain, unspecified (principal); R77.8 Other specified abnormalities of plasma proteins; I11.0 Hypertensive heart disease with heart failure; I50.9 Heart failure, unspecified; E11.9 Type 2 diabetes mellitus without complications; Z79.84 Long term (current) use of oral hypoglycemic drugs
CPT/HCPCS: 36415; 80053; 83690; 84484; 85025; 93005; 99283; 99284

== ENCOUNTER 2022-07-24 10:55 | Outpatient (CLI) | payer MEDICARE, OTHER | END 2022-07-24 10:56 | disposition home or self-care (01) | LOC: LAB.S 10:55 | PROVIDERS: ATTEND Emergency Medicine | DX: R30.0 Dysuria (principal); N39.490 Overflow incontinence; R53.83 Other fatigue ==

== ENCOUNTER 2022-07-24 12:54 | Outpatient (CLI) | payer MEDICARE, OTHER ==
[2022-07-24 14:46] LABS: BASOPHILS # (AUTO) 0.1 10^3/uL (0.0-0.1); BASOPHILS % (AUTO) 0.7 %; EOSINOPHILS # (AUTO) 0.3 10^3/uL (0.0-0.7); EOSINOPHILS % (AUTO) 2.8 %; HCT - HEMATOCRIT 39.1 % (37.0-47.0); HGB - HEMOGLOBIN 12.3 g/dL (12.0-16.0); LYMPHOCYTES # (AUTO) 2.3 10^3/uL (1.5-3.5); LYMPHOCYTES % (AUTO) 24.5 %; MEAN CORPUSCULAR HEMOGLOBIN 29.5 pg (27.0-31.0); MEAN CORPUSCULAR HGB CONC 31.5 g/dL (32.0-36.0); MEAN CORPUSCULAR VOLUME 93.8 fL (81.0-99.0); MEAN PLATELET VOLUME 12.1 fL (7.9-10.8); MONOCYTES # (AUTO) 0.7 10^3/uL (0.0-1.0); MONOCYTES % (AUTO) 6.9 %; NEUTROPHILS # (AUTO) 6.1 10^3/uL (1.5-6.6); NEUTROPHILS % (AUTO) 64.7 %; PLT - PLATELET COUNT 187 10^3/uL (130-450); RED BLOOD COUNT 4.17 10^6/uL (4.20-5.40); RED CELL DISTRIBUTION WIDTH 14.1 % (12.0-15.0); WHITE BLOOD COUNT 9.4 x10^3/uL (4.8-10.8)
[2022-07-24 15:48] LABS: ALBUMIN 4.3 g/dL (3.2-5.5); ALBUMIN/GLOBULIN RATIO 1.5 (1.0-2.2); ALKALINE PHOSPHATASE 87 IU/L (42-121); ALT ALANINE AMINOTRANSFERASE 18 IU/L (10-60); AST ASPARTATE AMINOTRANSFERASE 25 IU/L (10-42); BILIRUBIN,TOTAL 0.8 mg/dL (0.2-1.0); BUN - BLOOD UREA NITROGEN 34 mg/dL (6-20); CALCIUM 9.2 mg/dL (8.5-10.3); CARBON DIOXIDE - CO2 23 mmol/L (21-32); CHLORIDE 107 mmol/L (101-111); CHOL/HDL RATIO 2.7 (<4.4); CHOLESTEROL 159 mg/dL; CREATININE 1.3 mg/dL (0.4-1.0); GFR - MDRD 39 (>89); GLUCOSE 76 mg/dL (70-100); HDL CHOLESTEROL 59 mg/dL; LDL CHOLESTEROL,CALCULATED 67 mg/dL; LDL/HDL RATIO 1.1 (<4.4); POTASSIUM 4.9 mmol/L (3.5-5.0); SODIUM 138 mmol/L (135-145); TOTAL PROTEIN 7.2 g/dL (6.7-8.2); TRIGLYCERIDES 165 mg/dL; VLDL CHOLESTEROL 33 mg/dL
== END 2022-07-24 12:55 | disposition home or self-care (01) ==
LOC: LAB.S 12:54
PROVIDERS: ATTEND Registered Nurse
DX: R10.9 Unspecified abdominal pain (principal); I10 Essential (primary) hypertension
CPT/HCPCS: 36415; 80053; 80061; 83721; 85025

== ENCOUNTER 2022-08-29 14:13 | Inpatient (IN) | payer MEDICARE, OTHER ==
--- OUTSIDE RECORDS SUMMARY | 2022-08-29 14:22 | EXTERNAL MEDICAL SUMMARY RPT | Continuity of Care Document ---
:1935 Author Organization [facility] Address [address] [place] [address] Phone Care Team Providers Name Role Phone Unavailable Unavailable Unavailable Yue Nino Unavailable Unavailable Allergies No information. Encounters No information. Functional Status No information. Immunizations No information. Medications date description facility 2022-06-19 00:00 [facility] POTASSIUM All 2022-07-17 00:00 [facility]OT[facility]indi 2022-07-18 00:00 [facility] POTASSIUM [facility] cindi 2022-07-25 00:00 [facility] POTASSIUM [facility] cindi 2022-07-26 00:00 [facility] POTASSIUM [facility] C cindi 2022-08-06 00:00 [facility] POTASSIUM [facility] cindi 2022-06-19 00:00 FUROSEMIDE All 2022-07-17 00:00 FUROSEMIDE [facility] cindi 2022-07-18 00:00 FUROSEMIDE [facility] cindi 2022-07-25 00:00 FUROSEMIDE [facility] Humza mcgoverncindi 2022-07-26 00:00 FUROSEMIDE [facility] C cindi 2022-08-06 00:00 FUROSEMIDE [facility] Humza puente 2022-06-19 00:00 CYANOCOBALAMIN All 2022-07-17 00:00 CYANOCOBALAMIN [facility] C cindi 2022-07-18 00:00 CYANOCOBALAMIN [facility] Humza puente 2022-07-25 00:00 CYANOCOBALAMIN [facility] Humza puente 2022-07-26 00:00 CYANOCOBALAMIN [facility] C cindi 2022-08-06 00:00 CYANOCOBALAMIN [facility] C cindi 2022-06-19 00:00 DIAZEPAM All 2022-07-17 00:00 DIAZEPAM [facility] C cindi 2022-07-18 00:00 DIAZEPAM [facility] C cindi 2022-07-25 00:00 DIAZEPAM [facility] C cindi 2022-07-26 00:00 DIAZEPAM [facility] C cindi 2022-08-06 00:00 DIAZEPAM [facility] C cindi 2022-06-19 00:00 mirtazapine All 2022-07-17 00:00 mirtazapine [facility] C cindi 2022-07-18 00:00 mirtazapine [facility] C cindi 2022-07-25 00:00 mirtazapine [facility] C cindi 2022-07-26 00:00 mirtazapine [facility] C cindi 2022-08-06 00:00 mirtazapine [facility] C cindi 2022-06-19 00:00 metoprolol succinate All 2022-07-17 00:00 metoprolol succinate [facility] C cindi 2022-07-18 00:00 metoprolol succinate [facility] C cindi 2022-07-25 00:00 metoprolol succinate [facility] C cindi 2022-07-26 00:00 metoprolol succinate [facility] C cindi 2022-08-06 00:00 metoprolol succinate [facility] C cindi 2022-06-19 00:00 glipizide All 2022-07-17 00:00 glipizide [facility] C cindi 2022-07-18 00:00 glipizide [facility] C cindi 2022-07-25 00:00 glipizide [facility] C cindi 2022-07-26 00:00 glipizide [facility] C cindi 2022-08-06 00:00 glipizide [facility] C cindi 2022-06-19 00:00 FOLIC ACID All 2022-07-17 00:00 FOLIC ACID [facility] C cindi 2022-07-18 00:00 FOLIC ACID [facility] C cindi 2022-07-25 00:00 FOLIC ACID [facility] C cindi 2022-07-26 00:00 FOLIC ACID [facility] C cindi 2022-08-06 00:00 FOLIC ACID [facility] C cindi 2022-06-19 00:00 ASPIRIN All 2022-07-17 00:00 ASPIRIN [facility] C cindi 2022-07-18 00:00 ASPIRIN [facility] C cindi 2022-07-25 00:00 ASPIRIN [facility] C cindi 2022-07-26 00:00 ASPIRIN [facility] C cindi 2022-08-06 00:00 ASPIRIN [facility] C cindi 2022-06-19 00:00 phenazopyridine All 2022-07-17 00:00 phenazopyridine [facility] C cindi 2022-07-18 00:00 phenazopyridine [facility] C cindi 2022-07-25 00:00 phenazopyridine Walk[facility] C cindi 2022-07-26 00:00 phenazopyridine [facility] C cindi 2022-08-06 00:00 phenazopyridine [facility] C cindi 2022-06-19 00:00 POTASSIUM CHLORIDE All 2022-07-17 00:00 POTASSIUM CHLORIDE Walk[facility] C cindi 2022-07-18 00:00 POTASSIUM CHLORIDE Walk[facility] C cindi 2022-07-25 00:00 POTASSIUM CHLORIDE Walk[facility] C cindi 2022-07-26 00:00 POTASSIUM CHLORIDE [facility] C cindi 2022-08-06 00:00 POTASSIUM CHLORIDE [facility] C cindi 2022-06-19 00:00 docusate sodium All 2022-07-17 00:00 docusate sodium [facility] C cindi 2022-07-18 00:00 docusate sodium [facility] C cindi 2022-07-25 00:00 docusate sodium [facility] C cindi 2022-07-26 00:00 docusate sodium [facility] C cindi 2022-08-06 00:00 docusate sodium [facility] C cindi 2022-06-19 00:00 phenazopyridine All 2022-07-17 00:00 phenazopyridine [facility] C cindi 2022-07-18 00:00 phenazopyridine Walk[facility] C cindi 2022-07-25 00:00 phenazopyridine Walk[facility] C cindi 2022-07-26 00:00 phenazopyridine [facility] C cindi 2022-08-06 00:00 phenazopyridine [facility] C cindi 2022-06-19 00:00 peg [id number] All 2022-07-17 00:00 peg [id number] Walk[facility]In [facility] 2022-07-18 00:00 peg [id number] Walk[facility]In [facility] 2022-07-25 00:00 peg [id number] Walk[facility]In [facility] 2022-07-26 00:00 peg [id number]-jsfxzgal Walk[facility]In [facility] 2022-08-06 00:00 peg [id number]-[id number] Walk[facility] 2022-06-19 00:00 cholecalciferol (vitamin d3) All 2022-07-17 00:00 cholecalciferol (vitamin d3) Walk-In [facility] Services [facility] 2022-07-18 00:00 cholecalciferol (vitamin d3) Walk-In [facility] 2022-07-25 00:00 cholecalciferol (vitamin d3) Walk-In [facility] 2022-07-26 00:00 cholecalciferol (vitamin d3) Walk-In [facility] 2022-08-06 00:00 cholecalciferol (vitamin d3) Walk-In [facility] 2022-06-19 00:00 DIAZEPAM All 2022-07-17 00:00 DIAZEPAM Walk[facility]In Clinic [facility] 2022-07-18 00:00 DIAZEPAM Walk-In [facility] 2022-07-25 00:00 DIAZEPAM Walk-In [facility] 2022-07-26 00:00 DIAZEPAM Walk-In [facility] 2022-08-06 00:00 DIAZEPAM Walk-In [facility] 2022-06-19 00:00 lidocaine All 2022-07-17 00:00 lidocaine Walk[facility]In [facility] 2022-07-18 00:00 [facility]ocaine [facility] 2022-07-25 00:00 lidocaine Walk-In Clinic [facility] Services C cindi 2022-07-26 00:00 lidocaine Walk-In Clinic [facility] C cindi 2022-08-06 00:00 lidocaine Walk-In Clinic [facility] C cindi 2022-06-19 00:00 flash glucose sensor All 2022-07-17 00:00 flash glucose sensor Walk[facility]In [facility] Pr [facility] C cindi 2022-07-18 00:00 flash glucose sensor Walk[facility]In [facility] Pr ary [facility] C cindi 2022-07-25 00:00 flash glucose sensor [facility] Pr [facility] C cindi 2022-07-26 00:00 flash glucose sensor [facility] C cindi 2022-08-06 00:00 flash glucose sensor [facility] Pr [facility] C cindi 2022-06-19 00:00 flash glucose scanning reader All 2022-07-17 00:00 flash glucose scanning reader [facility] C c[facility] 2022-07-18 00:00 flash glucose scanning reader [facility] C c[facility] 2022-07-25 00:00 flash glucose scanning reader [facility] C c[facility] 2022-07-26 00:00 flash glucose scanning reader [facility] C c[facility] 2022-08-06 00:00 flash glucose scanning reader [facility] C cindi 2022-06-19 00:00 CLOPIDOGREL BISULFATE All 2022-07-17 00:00 CLOPIDOGREL BISULFATE [facility] 2022-07-18 00:00 CLOPIDOGREL BISULFATE [facility] 2022-07-25 00:00 CLOPIDOGREL BISULFATE [facility] c[facility] 2022-07-26 00:00 CLOPIDOGREL BISULFATE [facility] 2022-08-06 00:00 CLOPIDOGREL BISULFATE Walk[facility]In [facility] P [facility] C cindi 2022-06-19 00:00 cyanocobalamin (vitamin b-12) All 2022-07-17 00:00 cyanocobalamin (vitamin b-12) [facility] C c[facility] 2022-07-18 00:00 cyanocobalamin (vitamin b-12) [facility] C c[facility] 2022-07-25 00:00 cyanocobalamin (vitamin b-12) [facility] C c[facility] 2022-07-26 00:00 cyanocobalamin (vitamin b-12) [facility] C c[facility] 2022-08-06 00:00 cyanocobalamin (vitamin b-12) [facility] C c[facility] 2022-06-19 00:00 glipizide All 2022-07-17 00:00 glipizide [facility] C c[facility] 2022-07-18 00:00 glipizide [facility] C cindi 2022-07-25 00:00 glipizide [facility] C cindi 2022-07-26 00:00 glipizide [facility] C cindi 2022-08-06 00:00 glipizide [facility] C cindi 2022-06-19 00:00 MAGNESIUM OXIDE All 2022-07-17 00:00 MAGNESIUM OXIDE Walk[facility] C c[facility] 2022-07-18 00:00 MAGNESIUM OXIDE Walk[facility] C cindi 2022-07-25 00:00 MAGNESIUM OXIDE Walk[facility] C cindi 2022-07-26 00:00 MAGNESIUM OXIDE Walk[facility] C cindi 2022-08-06 00:00 MAGNESIUM OXIDE Walk[facility] C c[facility] 2022-06-19 00:00 cyanocobalamin (vitamin b-12) All 2022-07-17 00:00 cyanocobalamin (vitamin b-12) [facility] cindi 2022-07-18 00:00 cyanocobalamin (vitamin b-12) [facility] c[facility] 2022-07-25 00:00 cyanocobalamin (vitamin b-12) [facility] cindi 2022-07-26 00:00 cyanocobalamin (vitamin b-12) [facility] cindi 2022-08-06 00:00 cyanocobalamin (vitamin b-12) [facility] 2022-06-19 00:00 ASPIRIN All 2022-07-17 00:00 ASPIRIN [facility] 2022-07-18 00:00 ASPIRIN [facility] c[facility] 2022-07-25 00:00 ASPIRIN [facility] cindi 2022-07-26 00:00 ASPIRIN [facility] cindi 2022-08-06 00:00 ASPIRIN [facility] cindi 2022-06-19 00:00 cyanocobalamin (vitamin b-12) All 2022-07-17 00:00 cyanocobalamin (vitamin b-12) [facility] cindi 2022-07-18 00:00 cyanocobalamin (vitamin b-12) [facility] cindi 2022-07-25 00:00 cyanocobalamin (vitamin b-12) [facility] cindi 2022-07-26 00:00 cyanocobalamin (vitamin b-12) [facility] cindi 2022-08-06 00:00 cyanocobalamin (vitamin b-12) [facility] cindi 2022-06-19 00:00 CYANOCOBALAMIN All 2022-07-17 00:00 CYANOCOBALAMIN Walk[facility]In [facility] cindi 2022-07-18 00:00 CYANOCOBALAMIN Walk[facility]In [facility] C cindi 2022-07-25 00:00 CYANOCOBALAMIN Walk[facility]In [facility] Prim [facility] C cindi 2022-07-26 00:00 CYANOCOBALAMIN Walk[facility]In [facility] Prim [facility] C cindi 2022-08-06 00:00 CYANOCOBALAMIN Walk[facility]In [facility] C cindi 2022-06-19 00:00 FOLIC ACID All 2022-07-17 00:00 FOLIC ACID Walk[facility] C cindi 2022-07-18 00:00 FOLIC ACID Walk[facility] C cindi 2022-07-25 00:00 FOLIC ACID Walk[facility] C cindi 2022-07-26 00:00 FOLIC ACID Walk[facility] C cindi 2022-08-06 00:00 FOLIC ACID Walk[facility] Prim [facility] C cindi 2022-06-19 00:00 FUROSEMIDE All 2022-07-17 00:00 FUROSEMIDE Walk[facility]In [facility] C cindi 2022-07-18 00:00 FUROSEMIDE Walk[facility]In [facility] Prim [facility] C cindi 2022-07-25 00:00 FUROSEMIDE Walk-In [facility] Prim [facility] C cindi 2022-07-26 00:00 FUROSEMIDE Walk[facility]In [facility] Prim [facility] C cindi 2022-08-06 00:00 FUROSEMIDE Walk[facility] C cindi 2022-06-19 00:00 gabapentin All 2022-07-17 00:00 gabapentin Walk[facility]In [facility] C [facility] 2022-07-18 00:00 gabapentin Walk-In [facility] C c[facility] 2022-07-25 00:00 gabapentin Walk-In [facility] C cindi 2022-07-26 00:00 gabapentin Walk-In [facility] C cindi 2022-08-06 00:00 gabapentin Walk-In [facility] C cindi 2022-06-19 00:00 glipizide All 2022-07-17 00:00 glipizide Walk[facility] C c[facility] 2022-07-18 00:00 glipizide Walk[facility] C cindi 2022-07-25 00:00 glipizide Walk-[facility] C cindi 2022-07-26 00:00 glipizide Walk-In [facility] C cindi 2022-08-06 00:00 glipizide Walk[facility]In [facility] C cindi 2022-06-19 00:00 mirtazapine All 2022-07-17 00:00 mirtazapine Walk[facility] C c[facility] 2022-07-18 00:00 mirtazapine Walk[facility] C cindi 2022-07-25 00:00 mirtazapine Walk[facility]In [facility] Prim [facility] C cindi 2022-07-26 00:00 mirtazapine Walk[facility]In [facility] C cindi 2022-08-06 00:00 mirtazapine Walk[facility] C cindi 2022-06-19 00:00 pantoprazole All 2022-07-17 00:00 pantoprazole Walk[facility] C c[facility] 2022-07-18 00:00 pantoprazole Walk[facility]In [facility] C cindi 2022-07-25 00:00 pantoprazole Walk[facility]In [facility] Prim [facility] C cindi 2022-07-26 00:00 pantoprazole Walk[facility]In [facility] Prim [facility] C cindi 2022-08-06 00:00 pantoprazole Walk[facility]In [facility] Prim [facility] C cindi 2022-06-19 00:00 metoprolol succinate All 2022-07-17 00:00 metoprolol succinate Walk[facility]In [facility] Pr im[facility] C cindi 2022-07-18 00:00 metoprolol succinate Walk-In [facility] Pr im[facility] C cindi 2022-07-25 00:00 metoprolol succinate Walk-In [facility] Pr im[facility] C cindi 2022-07-26 00:00 metoprolol succinate Walk-In [facility] Pr im[facility] C cindi 2022-08-06 00:00 metoprolol succinate Walk-In Clinic Pr imary [facility] C cindi 2022-06-19 00:00 [facility] POTASSIUM All 2022-07-17 00:00 LOSARTAN POTASSIUM Walk[facility]In [facility] Prim [facility] C cindi 2022-07-18 00:00 LOS[facility] POTASSIUM Walk[facility]In [facility] Prim [facility] C cindi 2022-07-25 00:00 LOSARTAN POTASSIUM Walk-In [facility] Prim [facility] C cindi 2022-07-26 00:00 LOS[facility] POTASSIUM Walk-In [facility] Prim [facility] C cindi 2022-08-06 00:00 [facility] POTASSIUM Walk[facility]In [facility] Prim [facility] C cindi 2022-06-19 00:00 FUROSEMIDE All 2022-07-17 00:00 FUROSEMIDE Walk-In [facility] Prim [facility] C cindi 2022-07-18 00:00 FUROSEMIDE Walk-In Clinic Prim [facility] C cindi 2022-07-25 00:00 FUROSEMIDE Walk-In Clinic Prim [facility] C cindi 2022-07-26 00:00 FUROSEMIDE Walk-In Clinic Prim [facility] C cindi 2022-08-06 00:00 FUROSEMIDE Walk-In Clinic Prim [facility] C cindi 2022-06-19 00:00 ASPIRIN All 2022-07-17 00:00 ASPIRIN Walk-In Clinic Prim [facility] C cindi 2022-07-18 00:00 ASPIRIN Walk-In Clinic Prim [facility] C cindi 2022-07-25 00:00 ASPIRIN Walk-In Clinic Prim j[facility] C cindi 2022-07-26 00:00 ASPIRIN Walk-In Clinic Prim [facility] C cindi 2022-08-06 00:00 ASPIRIN Walk-In Clinic Prim [facility] C cindi 2022-06-19 00:00 phenazopyridine All 2022-07-17 00:00 phenazopyridine Walk-In Clinic Prim [facility] C cindi 2022-07-18 00:00 phenazopyridine Walk-In Clinic Prim [facility] C cindi 2022-07-25 00:00 phenazopyridine Walk-In Clinic Prim [facility] C cindi 2022-07-26 00:00 phenazopyridine Walk-In [facility] Prim [facility] C cindi 2022-08-06 00:00 phenazopyridine Walk-In [facility] Prim [facility] C cindi 2022-06-19 00:00 mirtazapine All 2022-07-17 00:00 mirtazapine Walk-In [facility] Prim [facility] C cindi 2022-07-18 00:00 mirtazapine Walk-In [facility] Prim [facility] C cindi 2022-07-25 00:00 mirtazapine Walk-In [facility] Prim [facility] C cindi 2022-07-26 00:00 mirtazapine Walk-In [facility] Prim [facility] C cindi 2022-08-06 00:00 mirtazapine Walk-In [facility] Prim [facility] C cindi 2022-06-19 00:00 gabapentin All 2022-07-17 00:00 gabapentin Walk-In [facility] Prim [facility] C c[facility] 2022-07-18 00:00 gabapentin Walk-In [facility] Prim [facility] C cindi 2022-07-25 00:00 gabapentin Walk-In [facility] Prim [facility] C cindi 2022-07-26 00:00 gabapentin Walk-In Clinic Prim [facility] C cindi 2022-08-06 00:00 gabapentin Walk-In Clinic Prim [facility] C cindi 2022-06-19 00:00 docusate sodium All 2022-07-17 00:00 docusate sodium Walk-In [facility] Prim [facility] C cindi 2022-07-18 00:00 docusate sodium Walk-In [facility] Prim [facility] C cindi 2022-07-25 00:00 docusate sodium Walk-In [facility] Prim [facility] C cindi 2022-07-26 00:00 docusate sodium Walk-In [facility] Prim [facility] C cindi 2022-08-06 00:00 docusate sodium Walk-In [facility] Prim [facility] C cindi 2022-06-19 00:00 MAGNESIUM OXIDE All 2022-07-17 00:00 MAGNESIUM OXIDE Walk-In Clinic Prim [facility] C cindi 2022-07-18 00:00 MAGNESIUM OXIDE Walk-In Clinic Prim [facility] C cindi 2022-07-25 00:00 MAGNESIUM OXIDE Walk-In Clinic Prim [facility] C cindi 2022-07-26 00:00 MAGNESIUM OXIDE Walk-In Clinic Prim [facility] C cindi 2022-08-06 00:00 MAGNESIUM OXIDE Walk-In Clinic Prim jaes Care & Anc[facility] Services C cindi 2022-06-19 00:00 pantoprazole All 2022-07-17 00:00 pantoprazole Walk-In [facility] Prim [facility] C cindi 2022-07-18 00:00 pantoprazole Walk-In [facility] Prim [facility] C cindi 2022-07-25 00:00 pantoprazole Walk-In [facility] Prim [facility] C cindi 2022-07-26 00:00 pantoprazole Walk-In [facility] Prim [facility] C cindi 2022-08-06 00:00 pantoprazole Walk[facility]In [facility] Prim [facility] C [facility] 2022-06-19 00:00 peg [id number] All 2022-07-17 00:00 peg 600-zoeuibvbtfap-jxyqbrmb [facility] C [facility] 2022-07-18 00:00 peg 228-tgufxqjujagz-tycxiwlj [facility] C [facility] 2022-07-25 00:00 peg [id number]-[id number] [facility] 2022-07-26 00:00 peg [id number]-jwtoxmcs [facility] 2022-08-06 00:00 peg [id number]-kymrkmrc [facility] 2022-06-19 00:00 docusate sodium All 2022-07-17 00:00 docusate sodium Walk[facility] C [facility] 2022-07-18 00:00 docusate sodium Walk[facility]In [facility] C [facility] 2022-07-25 00:00 docusate sodium Walk[facility]In [facility] Prim [facility] C [facility] 2022-07-26 00:00 docusate sodium Walk[facility]In [facility] C [facility] 2022-08-06 00:00 docusate sodium Walk[facility]In [facility] C cindi 2022-06-19 00:00 CLOPIDOGREL BISULFATE All 2022-07-17 00:00 CLOPIDOGREL BISULFATE [facility] 2022-07-18 00:00 CLOPIDOGREL BISULFATE [facility] 2022-07-25 00:00 CLOPIDOGREL BISULFATE [facility] 2022-07-26 00:00 CLOPIDOGREL BISULFATE [facility] 2022-08-06 00:00 CLOPIDOGREL BISULFATE [facility] 2022-06-19 00:00 CYANOCOBALAMIN All 2022-07-17 00:00 CYANOCOBALAMIN Walk[facility]In [facility] Prim jase [facility] 2022-07-18 00:00 CYANOCOBALAMIN Walk-In Clinic Prim [facility] 2022-07-25 00:00 CYANOCOBALAMIN Walk[facility]In [facility] [place] j[facility] 2022-07-26 00:00 CYANOCOBALAMIN Walk[facility]In [facility] Prim [facility] 2022-08-06 00:00 CYANOCOBALAMIN [facility] [place] j[facility] 2022-06-19 00:00 phenazopyridine All 2022-07-17 00:00 phenazopyridine Walk[facility]In [facility] Prim [facility] 2022-07-18 00:00 phenazopyridine Walk[facility]In [facility] Prim [facility] 2022-07-25 00:00 phenazopyridine Walk[facility]In [facility] Prim [facility] 2022-07-26 00:00 phenazopyridine Walk[facility]In [facility] Prim [facility] 2022-08-06 00:00 phenazopyridine Walk[facility]In [facility] Prim [facility] 2022-06-19 00:00 DIAZEPAM All 2022-07-17 00:00 DIAZEPAM Walk[facility] Prim [facility] C icndi 2022-07-18 00:00 DIAZEPAM Walk[facility]In [facility] Prim [facility] 2022-07-25 00:00 DIAZEPAM Walk[facility] Prim [facility] 2022-07-26 00:00 DIAZEPAM Walk[facility] Prim [facility] 2022-08-06 00:00 DIAZEPAM Walk[facility] Prim [facility] 2022-06-19 00:00 flash glucose sensor All 2022-07-17 00:00 flash glucose sensor Walk[facility] Pr imary [facility] 2022-07-18 00:00 flash glucose sensor [facility] Pr imary [facility] C [facility] 2022-07-25 00:00 flash glucose sensor [facility] Pr imary [facility] C [facility] 2022-07-26 00:00 flash glucose sensor [facility] Pr imary [facility] 2022-08-06 00:00 flash glucose sensor Walk[facility] Pr imary [facility] C [facility] 2022-06-19 00:00 flash glucose scanning reader All 2022-07-17 00:00 flash glucose scanning reader [facility] Primary [facility] 2022-07-18 00:00 flash glucose scanning reader [facility] 2022-07-25 00:00 flash glucose scanning reader [facility] 2022-07-26 00:00 flash glucose scanning reader [facility] 2022-08-06 00:00 flash glucose scanning reader [facility] 2022-06-19 00:00 mirtazapine All 2022-07-17 00:00 mirtazapine [facility] Prim [facility] 2022-07-18 00:00 mirtazapine [facility] Prim [facility] 2022-07-25 00:00 mirtazapine Walk[facility] Prim [facility] 2022-07-26 00:00 mirtazapine [facility] Prim [facility] 2022-08-06 00:00 mirtazapine [facility] Prim [facility] 2022-06-19 00:00 LOSARTAN POTASSIUM All 2022-07-17 00:00 LOSARTAN POTASSIUM [facility] Prim [facility] 2022-07-18 00:00 LOSARTAN POTASSIUM Walk[facility] Prim [facility]indi 2022-07-25 00:00 LOSARTAN POTASSIUM [facility] Prim [facility] C cindi 2022-07-26 00:00 LOSARTAN POTASSIUM [facility] Prim [facility] cindi 2022-08-06 00:00 LOSARTAN POTASSIUM [facility] Prim [facility] 2022-06-19 00:00 MAGNESIUM OXIDE All 2022-07-17 00:00 MAGNESIUM OXIDE [facility] Prim [facility]indi 2022-07-18 00:00 MAGNESIUM OXIDE [facility] Prim [facility] C [facility]indi 2022-07-25 00:00 MAGNESIUM OXIDE [facility] Prim [facility] 2022-07-26 00:00 MAGNESIUM OXIDE [facility] Prim [facility] 2022-08-06 00:00 MAGNESIUM OXIDE [facility] Prim [facility] 2022-06-19 00:00 gabapentin All 2022-07-17 00:00 gabapentin [facility] Prim [facility] 2022-07-18 00:00 gabapentin [facility] Prim [facility] 2022-07-25 00:00 gabapentin [facility] Prim [facility]indi 2022-07-26 00:00 gabapentin [facility] Prim [facility] 2022-08-06 00:00 gabapentin [facility] Prim [facility] 2022-06-19 00:00 pantoprazole All 2022-07-17 00:00 pantoprazole [facility] Prim [facility] 2022-07-18 00:00 pantoprazole [facility] Prim [facility] 2022-07-25 00:00 pantoprazole [facility] Prim [facility] C [facility] 2022-07-26 00:00 pantoprazole [facility] Prim [facility] 2022-08-06 00:00 pantoprazole [facility]In [facility] Prim [facility] 2022-06-19 00:00 pantoprazole All 2022-07-17 00:00 pantoprazole [facility] Prim [facility] 2022-07-18 00:00 pantoprazole [facility] Prim [facility] 2022-07-25 00:00 pantoprazole [facility] Prim [facility]indi 2022-07-26 00:00 pantoprazole [facility] Prim [facility] 2022-08-06 00:00 pantoprazole [facility] Prim [facility] 2022-06-19 00:00 POTASSIUM CHLORIDE All 2022-07-17 00:00 POTASSIUM CHLORIDE [facility] Prim [facility] 2022-07-18 00:00 POTASSIUM CHLORIDE [facility] Prim [facility] 2022-07-25 00:00 POTASSIUM CHLORIDE [facility] Prim [facility] 2022-07-26 00:00 POTASSIUM CHLORIDE Walk[facility] Prim [facility] 2022-08-06 00:00 POTASSIUM CHLORIDE [facility] Prim [facility] 2022-06-19 00:00 CLOPIDOGREL BISULFATE All 2022-07-17 00:00 CLOPIDOGREL BISULFATE [facility] P rimary [facility] C [facility]indi 2022-07-18 00:00 CLOPIDOGREL BISULFATE [facility] P rimary [facility] C cindi 2022-07-25 00:00 CLOPIDOGREL BISULFATE Walk[facility]In [facility] P rimary [facility] C cindi 2022-07-26 00:00 CLOPIDOGREL BISULFATE Walk[facility] P rimary [facility] C cindi 2022-08-06 00:00 CLOPIDOGREL BISULFATE Walk[facility] P rimary [facility] C cindi 2022-06-19 00:00 ASPIRIN All 2022-07-17 00:00 ASPIRIN [facility] Prim [facility] 2022-07-18 00:00 ASPIRIN [facility] Prim [facility] 2022-07-25 00:00 ASPIRIN [facility] Prim [facility] C [facility] 2022-07-26 00:00 ASPIRIN [facility] Prim [facility] 2022-08-06 00:00 ASPIRIN [facility] Prim [facility] 2022-06-19 00:00 DIAZEPAM All 2022-07-17 00:00 DIAZEPAM Walk[facility] Prim [facility] 2022-07-18 00:00 DIAZEPAM Walk[facility] Prim [facility] C c[facility] 2022-07-25 00:00 DIAZEPAM Walk[facility] Prim [facility] C c[facility] 2022-07-26 00:00 DIAZEPAM Walk[facility] Prim [facility] 2022-08-06 00:00 DIAZEPAM Walk[facility] Prim [facility] C c[facility] 2022-06-19 00:00 POTASSIUM CHLORIDE All 2022-07-17 00:00 POTASSIUM CHLORIDE Walk[facility]In [facility] Prim [facility] 2022-07-18 00:00 POTASSIUM CHLORIDE Walk[facility]In [facility] Prim [facility] 2022-07-25 00:00 POTASSIUM CHLORIDE Walk[facility] Prim [facility] C c[facility] 2022-07-26 00:00 POTASSIUM CHLORIDE Walk[facility]In [facility] Prim [facility] C cindi 2022-08-06 00:00 POTASSIUM CHLORIDE Walk[facility]In [facility] Prim [facility] 2022-06-19 00:00 docusate sodium All 2022-07-17 00:00 docusate sodium Walk[facility] Prim [facility] 2022-07-18 00:00 docusate sodium Walk[facility] Prim [facility] C cindi 2022-07-25 00:00 docusate sodium Walk[facility]In [facility] Prim [facility] C cindi 2022-07-26 00:00 docusate sodium [facility] Prim [facility] C cindi 2022-08-06 00:00 docusate sodium [facility] Prim [facility] c[facility] 2022-06-19 00:00 acetaminophen All 2022-07-17 00:00 acetaminophen [facility] 2022-07-18 00:00 acetaminophen [facility] Prim [facility] C c[facility] 2022-07-25 00:00 acetaminophen [facility] Prim [facility] C [facility] 2022-07-26 00:00 acetaminophen [facility] C c[facility] 2022-08-06 00:00 acetaminophen [facility] Prim [facility] C c[facility] 2022-06-19 00:00 metoprolol succinate All 2022-07-17 00:00 metoprolol succinate Walk[facility] Pr imary [facility] C cindi 2022-07-18 00:00 metoprolol succinate [facility] Pr imary [facility] C cindi 2022-07-25 00:00 metoprolol succinate Walk[facility]In [facility] Pr imary [facility] C cindi 2022-07-26 00:00 metoprolol succinate Walk[facility] Pr im[facility] C cindi 2022-08-06 00:00 metoprolol succinate Walk[facility]In [facility] Pr im[facility] C cindi 2022-06-19 00:00 gabapentin All 2022-07-17 00:00 gabapentin Walk-In [facility] Prim [facility] C [facility] 2022-07-18 00:00 gabapentin Walk[facility]In [facility] Prim [facility] C c[facility] 2022-07-25 00:00 gabapentin Walk-In Clinic Prim [facility] C cindi 2022-07-26 00:00 gabapentin Walk-In [facility] Prim [facility] C c[facility] 2022-08-06 00:00 gabapentin Walk[facility]In [facility] Prim [facility] C c[facility] 2022-06-19 00:00 lidocaine All 2022-07-17 00:00 lidocaine [facility] Prim [facility] C c[facility] 2022-07-18 00:00 lidocaine Walk-In Clinic Prim ajse [facility] C cindi 2022-07-25 00:00 lidocaine Walk[facility]In [facility] Prim [facility] cindi 2022-07-26 00:00 lidocaine [facility]In [facility] Prim [facility] cindi 2022-08-06 00:00 lidocaine Walk[facility]In [facility] Prim [facility] 2022-06-19 00:00 cholecalciferol (vitamin d3) All 2022-07-17 00:00 cholecalciferol (vitamin d3) Walk-In C [facility] Primary [facility] Services cindi 2022-07-18 00:00 cholecalciferol (vitamin d3) Walk-In C [facility] cindi 2022-07-25 00:00 cholecalciferol (vitamin d3) Walk-In C [facility] cindi 2022-07-26 00:00 cholecalciferol (vitamin d3) Walk-In C [facility] Primary [facility] C cindi 2022-08-06 00:00 cholecalciferol (vitamin d3) Walk-In C [facility] cindi 2022-06-19 00:00 POTASSIUM CHLORIDE All 2022-07-17 00:00 POTASSIUM CHLORIDE Walk[facility]In Clinic Prim [facility] C c[facility] 2022-07-18 00:00 POTASSIUM CHLORIDE Walk-In Clinic Prim jase [facility] cindi 2022-07-25 00:00 POTASSIUM CHLORIDE Walk-In Clinic Prim jase [facility] Services [facility] 2022-07-26 00:00 POTASSIUM CHLORIDE Walk-In Clinic Prim jase [facility] 2022-08-06 00:00 POTASSIUM CHLORIDE Walk-In Clinic Prim jase [facility] 2022-06-19 00:00 cholecalciferol (vitamin d3) All 2022-07-17 00:00 cholecalciferol (vitamin d3) Walk-In [facility] Primary [facility] Services [facility] 2022-07-18 00:00 cholecalciferol (vitamin d3) Walk-In [facility] 2022-07-25 00:00 cholecalciferol (vitamin d3) Walk-In [facility] 2022-07-26 00:00 cholecalciferol (vitamin d3) Walk-In [facility] 2022-08-06 00:00 cholecalciferol (vitamin d3) Walk-In [facility] 2022-06-19 00:00 cyanocobalamin (vitamin b-12) All 2022-07-17 00:00 cyanocobalamin (vitamin b-12) Walk[facility]In Clinic Primary [facility] 2022-07-18 00:00 cyanocobalamin (vitamin b-12) Walk[facility]In Clinic Primary [facility] 2022-07-25 00:00 cyanocobalamin (vitamin b-12) Walk[facility]In [facility] Primary [facility] 2022-07-26 00:00 cyanocobalamin (vitamin b-12) Walk[facility]In [facility] 2022-08-06 00:00 cyanocobalamin (vitamin b-12) Walk[facility]In [facility] 2022-06-19 00:00 CYANOCOBALAMIN All 2022-07-17 00:00 CYANOCOBALAMIN Walk-In Clinic Prim jase [facility] 2022-07-18 00:00 CYANOCOBALAMIN Walk-In Clinic Prim jase [facility] 2022-07-25 00:00 CYANOCOBALAMIN Walk-In Clinic Prim jase [facility] 2022-07-26 00:00 CYANOCOBALAMIN Walk[facility]In [facility] Prim [facility] C [facility] 2022-08-06 00:00 CYANOCOBALAMIN Walk[facility]In [facility] Prim [facility] C c[facility] 2022-06-19 00:00 FOLIC ACID All 2022-07-17 00:00 FOLIC ACID Walk[facility] Prim [facility] C [facility] 2022-07-18 00:00 FOLIC ACID Walk[facility] Prim [facility] C cindi 2022-07-25 00:00 FOLIC ACID [facility] Prim [facility] C c[facility] 2022-07-26 00:00 FOLIC ACID Walk[facility] Prim [facility] C cindi 2022-08-06 00:00 FOLIC ACID Walk[facility] Prim [facility] C [facility] 2022-06-19 00:00 glipizide All 2022-07-17 00:00 glipizide Walk[facility] Prim [facility] C [facility] 2022-07-18 00:00 glipizide Walk[facility] Prim [facility] C c[facility] 2022-07-25 00:00 glipizide Walk[facility] Prim [facility] C c[facility] 2022-07-26 00:00 glipizide [facility] Prim [facility] C c[facility] 2022-08-06 00:00 glipizide Walk[facility] Prim [facility] C [facility] 2022-06-19 00:00 CLOPIDOGREL BISULFATE All 2022-07-17 00:00 CLOPIDOGREL BISULFATE Walk[facility]In [facility] P rim[facility] C cindi 2022-07-18 00:00 CLOPIDOGREL BISULFATE Walk[facility]In [facility] P rim[facility] C cindi 2022-07-25 00:00 CLOPIDOGREL BISULFATE Walk[facility]In [facility] P rim[facility] C cindi 2022-07-26 00:00 CLOPIDOGREL BISULFATE Walk[facility] P rim[facility] C c[facility] 2022-08-06 00:00 CLOPIDOGREL BISULFATE Walk[facility] P rim[facility] C [facility] 2022-06-19 00:00 peg [id number] All 2022-07-17 00:00 peg [id number] [facility] 2022-07-18 00:00 peg [id number] [facility] 2022-07-25 00:00 peg [id number] [facility] 2022-07-26 00:00 peg [id number] [facility] 2022-08-06 00:00 peg [id number] [facility] 2022-06-19 00:00 metoprolol succinate All 2022-07-17 00:00 metoprolol succinate Walk[facility]In [facility] Pr imary [facility] 2022-07-18 00:00 metoprolol succinate Walk[facility]In [facility] Pr im[facility] 2022-07-25 00:00 metoprolol succinate Walk[facility]In [facility] Pr im[facility] C c[facility] 2022-07-26 00:00 metoprolol succinate Walk[facility]In [facility] Pr imary [facility] 2022-08-06 00:00 metoprolol succinate Walk[facility]In [facility] Pr imary [facility] 2022-06-19 00:00 FOLIC ACID All 2022-07-17 00:00 FOLIC ACID Walk[facility]In [facility] Prim [facility] 2022-07-18 00:00 FOLIC ACID Walk[facility]In [facility] Prim [facility] 2022-07-25 00:00 FOLIC ACID Walk[facility]In [facility] Prim [facility] C c[facility] 2022-07-26 00:00 FOLIC ACID Walk[facility] Prim [facility] 2022-08-06 00:00 FOLIC ACID Walk[facility]In [facility] Prim [facility] 2022-06-19 00:00 FUROSEMIDE All 2022-07-17 00:00 FUROSEMIDE Walk[facility]In [facility] Prim [facility] 2022-07-18 00:00 FUROSEMIDE Walk[facility]In [facility] Prim [facility] C [facility] 2022-07-25 00:00 FUROSEMIDE Walk[facility] Prim [facility] C [facility] 2022-07-26 00:00 FUROSEMIDE Walk[facility]In [facility] Prim [facility] C [facility] 2022-08-06 00:00 FUROSEMIDE Walk[facility] Prim [facility] C [facility] 2022-06-19 00:00 lidocaine All 2022-07-17 00:00 lidocaine Walk[facility] Prim [facility] 2022-07-18 00:00 lidocaine Walk[facility] Prim [facility] C [facility] 2022-07-25 00:00 lidocaine Walk[facility] Prim [facility] 2022-07-26 00:00 lidocaine [facility] Prim [facility] 2022-08-06 00:00 lidocaine [facility] Prim [facility] 2022-06-19 00:00 flash glucose scanning reader All 2022-07-17 00:00 flash glucose scanning reader [facility] 2022-07-18 00:00 flash glucose scanning reader [facility] 2022-07-25 00:00 flash glucose scanning reader [facility] 2022-07-26 00:00 flash glucose scanning reader [facility] 2022-08-06 00:00 flash glucose scanning reader [facility] 2022-06-19 00:00 flash glucose sensor All 2022-07-17 00:00 flash glucose sensor Walk[facility]In [facility] Pr imary [facility] C [facility] 2022-07-18 00:00 flash glucose sensor [facility]In [facility] Pr im[facility] C [facility] 2022-07-25 00:00 flash glucose sensor [facility] Pr im[facility] C [facility] 2022-07-26 00:00 flash glucose sensor [facility] Pr im[facility] C [facility] 2022-08-06 00:00 flash glucose sensor [facility] Pr im[facility] C [facility] 2022-06-19 00:00 LOSARTAN POTASSIUM All 2022-07-17 00:00 LOSARTAN POTASSIUM Walk[facility]In [facility] Prim j[facility] C [facility] 2022-07-18 00:00 LOSARTAN POTASSIUM Walk[facility]In [facility] Prim jase [facility] C [facility] 2022-07-25 00:00 LOSARTAN POTASSIUM Walk[facility]In [facility] Prim j[facility] C cindi 2022-07-26 00:00 LOSARTAN POTASSIUM Walk[facility]In [facility] Prim j[facility] C [facility] 2022-08-06 00:00 LOSARTAN POTASSIUM Walk[facility] Prim [facility] C c[facility] 2022-06-19 00:00 15ml All 2022-07-17 00:00 15ml [facility] C [facility] 2022-07-18 00:00 15ml [facility] Prim [facility] C [facility] 2022-07-25 00:00 15ml [facility] Prim [facility] C [facility] 2022-07-26 00:00 15ml [facility] Prim [facility] C [facility] 2022-08-06 00:00 15ml [facility] Prim [facility] C [facility] 2022-06-19 00:00 coenzyme q10 All 2022-07-17 00:00 coenzyme q10 Walk[facility] Prim [facility] C [facility] 2022-07-18 00:00 coenzyme q10 [facility] Prim [facility] C [facility] 2022-07-25 00:00 coenzyme q10 [facility] Prim [facility] C [facility] 2022-07-26 00:00 coenzyme q10 [facility] Prim [facility] C [facility] 2022-08-06 00:00 coenzyme q10 [facility] Prim [facility] Problems date description facility 2022-06-06 00:00 Overflow incontinence of urine All 2022-06-06 00:00 Overflow incontinence of urine Walk[facility] 2022-06-06 00:00 Overflow incontinence All 2022-06-06 00:00 Overflow incontinence [facility] Procedures date description facility 2022-06-06 00:00 Visit Code Hold All 2022-06-06 00:00 Visit Code Hold [facility] 2022-07-17 00:00 Visit Code Hold [facility] 2022-07-24 00:00 Visit Code Hold [facility] 2022-07-02 00:00 Basic Metabolic Panel (BMP) Walk-In Cl in [facility] 2022-07-02 00:00 COMPREHENSIVE METABOLIC PANEL [facility] 2022-07-24 00:00 COMPREHENSIVE METABOLIC PANEL [facility] 2022-07-02 00:00 LIPIDS SCREEN Walk[facility]In [facility] Prim [facility] cindi 2022-07-24 00:00 LIPIDS SCREEN [facility] Prim [facility] 2022-06-06 00:00 POC URINALYSIS DIP All 2022-06-06 00:00 POC URINALYSIS DIP Walk[facility] Prim [facility] 2022-07-17 00:00 POC URINALYSIS DIP Walk[facility] Prim [facility] cindi 2022-07-02 00:00 HGBA1C Walk[facility]In [facility] Prim [facility] 2022-07-02 00:00 CBC W/Diff/Plt Walk[facility]In [facility] Prim [facility] cindi 2022-07-24 00:00 CBC W/Diff/Plt Walk[facility]In [facility] Prim [facility] 2022-07-02 00:00 MICROALBUMIN/CREAT RATIO Walk[facility]In [facility] c [facility] 2022-07-02 00:00 TSH WITH REFLEX TO FT4 [facility] 2022-07-17 00:00 Urine C&S Walk-In [facility] Prim [facility]ase [facility] Results/Labs test date author facility value unit interpret ation Result panel 1 (unknown) (no date) (unknown) Walk-In (no value) (units (unk nown) Clinic Primary unknown) [facility] Result panel 2 (unknown) (no date) (unknown) Walk-In (no value) (units (unk nown) Clinic Primary unknown) [facility] Result panel 3 (unknown) (no date) (unknown) Walk-In (no value) (units (unk nown) Clinic Primary unknown) [facility] Result panel 4 (unknown) (no date) (unknown) Walk-In (no value) (units (unk nown) Clinic Primary unknown) [facility] Result panel 5 (unknown) (no date) (unknown) Walk-In (no value) (units (unk nown) Clinic Primary unknown) [facility] Result panel 6 (unknown) (no date) (unknown) Walk-In (no value) (units (unk nown) Clinic Primary unknown) [facility] Result panel 7 (unknown) (no date) (unknown) Walk-In (no value) (units (unk nown) Clinic Primary unknown) [facility] Result panel 8 (unknown) (no date) (unknown) Walk-In (no value) (units (unk nown) Clinic Primary unknown) [facility] Result panel 9 (unknown) (no date) (unknown) Walk-In (no value) (units (unk nown) Clinic Primary unknown) [facility] Result panel 10 (unknown) (no date) (unknown) Walk-In (no value) (units (unk nown) Clinic Primary unknown) [facility] Result panel 11 (unknown) (no date) (unknown) Walk-In (no value) (units (unk nown) Clinic Primary unknown) [facility] Result panel 12 (unknown) (no date) (unknown) Walk-In (no value) (units (unk nown) Clinic Primary unknown) [facility] Result panel 13 (unknown) (no date) (unknown) Walk[facility]In (no value) (units (unk nown) Clinic Primary unknown) [facility] [facility] Result panel 14 (unknown) (no date) (unknown) [facility] value[facility] Result panel 15 (unknown) (no date) (unknown) [facility] (no value) [facility] Result panel 16 (unknown) (no date) (unknown) [facility] (no value) [facility] Result panel 17 (unknown) (no date) (unknown) [facility] (no value) [facility] Result panel 18 (unknown) (no date) (unknown) [facility] (no value) [facility] Result panel 19 (unknown) (no date) (unknown) [facility] (no value) [facility] Result panel 20 (unknown) (no date) (unknown) [facility] (no value) [facility] Result panel 21 (unknown) (no date) (unknown) [facility] (no value) [facility] Result panel 22 (unknown) (no date) (unknown) [facility] (no value) [facility] Result panel 23 (unknown) (no date) (unknown) [facility] (no value) [facility] Result panel 24 (unknown) (no date) (unknown) [facility] (no value) [facility] Result panel 25 (unknown) (no date) (unknown) [facility] (no value) [facility] Result panel 26 (unknown) (no date) (unknown) [facility] (no value) [facility] Result panel 27 (unknown) (no date) (unknown) [facility] (no value) [facility] Result panel 28 (unknown) (no date) (unknown) [facility] (no value) [facility] Result panel 29 (unknown) (no date) (unknown) [facility] (no value) [facility] Result panel 30 (unknown) (no date) (unknown) [facility] (no value) [facility] Result panel 31 (unknown) (no date) (unknown) [facility] (no value) [facility] Result panel 32 (unknown) (no date) (unknown) [facility] (no value) [facility] Result panel 33 (unknown) (no date) (unknown) [facility] (no value) [facility] Result panel 34 (unknown) (no date) (unknown) [facility] (no value) [facility] Result panel 35 (unknown) (no date) (unknown) [facility] (no value) [facility] Result panel 36 (unknown) (no date) (unknown) [facility] (no value) [facility] Result panel 37 (unknown) (no date) (unknown) [facility] (no value) [facility] Result panel 38 (unknown) (no date) (unknown) [facility] (no value) [facility] Result panel 39 (unknown) (no date) (unknown) [facility] (no value) [facility] Result panel 40 (unknown) (no date) (unknown) [facility] (no value) [facility] Result panel 41 (unknown) (no date) (unknown) [facility] (no value) [facility] Result panel 42 (unknown) (no date) (unknown) [facility] (no value) [facility] Result panel 43 (unknown) (no date) (unknown) [facility] (no value) [facility] Result panel 44 (unknown) (no date) (unknown) [facility] (no value) [facility] Result panel 45 (unknown) (no date) (unknown) [facility] (no value) [facility] Result panel 46 (unknown) (no date) (unknown) [facility] (no value) [facility] Result panel 47 (unknown) (no date) (unknown) [facility] (no value) [facility] Result panel 48 (unknown) (no date) (unknown) [facility] (no value) [facility] Result panel 49 (unknown) (no date) (unknown) [facility] (no value) [facility] Result panel 50 (unknown) (no date) (unknown) [facility] (no value) [facility] Result panel 51 (unknown) (no date) (unknown) [facility] (no value) [facility] Result panel 52 (unknown) (no date) (unknown) [facility] (no value) [facility] Result panel 53 (unknown) (no date) (unknown) [facility] (no value) [facility] Result panel 54 (unknown) (no date) (unknown) [facility] (no value) [facility] Result panel 55 (unknown) (no date) (unknown) [facility] (no value) [facility] Result panel 56 (unknown) (no date) (unknown) [facility] (no value) [facility] Result panel 57 (unknown) (no date) (unknown) [facility] (no value) [facility] Result panel 58 (unknown) (no date) (unknown) [facility] (no value) [facility] Result panel 59 (unknown) (no date) (unknown) [facility] (no value) [facility] Result panel 60 (unknown) (no date) (unknown) [facility] (no value) [facility] Result panel 61 (unknown) (no date) (unknown) [facility] (no value) [facility] Result panel 62 (unknown) (no date) (unknown) [facility] (no value) [facility] Result panel 63 (unknown) (no date) (unknown) [facility] (no value) [facility] Result panel 64 (unknown) (no date) (unknown) [facility] (no value) [facility] Result panel 65 (unknown) (no date) (unknown) [facility] (no value) [facility] Result panel 66 (unknown) (no date) (unknown) [facility] (no value) [facility] Result panel 67 (unknown) (no date) (unknown) [facility] (no value) [facility] Result panel 68 (unknown) (no date) (unknown) [facility] (no value) [facility] Result panel 69 (unknown) (no date) (unknown) [facility] (no value) [facility] Result panel 70 (unknown) (no date) (unknown) [facility] (no value) [facility] Result panel 71 (unknown) (no date) (unknown) [facility] (no value) [facility] Result panel 72 (unknown) (no date) (unknown) [facility] (no value) [facility] Result panel 73 (unknown) (no date) (unknown) [facility] (no value) [facility] Result panel 74 (unknown) (no date) (unknown) [facility] (no value) [facility] Result panel 75 (unknown) (no date) (unknown) [facility] (no value) [facility] Result panel 76 (unknown) (no date) (unknown) [facility] (no value) [facility] Result panel 77 (unknown) (no date) (unknown) [facility] (no value) [facility] Result panel 78 (unknown) (no date) (unknown) [facility] (no value) [facility] Result panel 79 (unknown) (no date) (unknown) [facility] (no value) [facility] Result panel 80 (unknown) (no date) (unknown) [facility] (no value) [facility] Result panel 81 (unknown) (no date) (unknown) [facility] (no value) [facility] Result panel 82 (unknown) (no date) (unknown) [facility] (no value) [facility] Result panel 83 (unknown) (no date) (unknown) [facility] (no value) [facility] Result panel 84 (unknown) (no date) (unknown) [facility] (no value) [facility] Result panel 85 (unknown) (no date) (unknown) [facility] (no value) [facility] Result panel 86 (unknown) (no date) (unknown) [facility] (no value) [facility] Result panel 87 (unknown) (no date) (unknown) [facility] (no value) [facility] Result panel 88 (unknown) (no date) (unknown) [facility] (no value) [facility] Result panel 89 (unknown) (no date) (unknown) [facility] (no value) [facility] Result panel 90 (unknown) (no date) (unknown) [facility] (no value) [facility] Result panel 91 (unknown) (no date) (unknown) [facility] (no value) [facility] Result panel 92 (unknown) (no date) (unknown) [facility] (no value) [facility] Result panel 93 (unknown) (no date) (unknown) [facility] (no value) [facility] Result panel 94 (unknown) (no date) (unknown) [facility] (no value) [facility] Result panel 95 (unknown) (no date) (unknown) [facility] (no value) [facility] Result panel 96 (unknown) (no date) (unknown) [facility] (no value) [facility] Result panel 97 (unknown) (no date) (unknown) [facility] (no value) [facility] Result panel 98 (unknown) (no date) (unknown) [facility] (no value) [facility] Result panel 99 (unknown) (no date) (unknown) [facility] (no value) [facility] Result panel 100 (unknown) (no date) (unknown) [facility] (no value) [facility] Result panel 101 (unknown) (no date) (unknown) [facility] (no value) [facility] Result panel 102 (unknown) (no date) (unknown) [facility] (no value) [facility] Result panel 103 (unknown) (no date) (unknown) [facility] (no value) [facility] Result panel 104 (unknown) (no date) (unknown) [facility] (no value) [facility] Result panel 105 (unknown) (no date) (unknown) [facility] (no value) [facility] Result panel 106 (unknown) (no date) (unknown) [facility] (no value) [facility] Result panel 107 (unknown) (no date) (unknown) [facility] (no value) [facility] Result panel 108 (unknown) (no date) (unknown) [facility] (no value) [facility] Result panel 109 (unknown) (no date) (unknown) [facility] (no value) [facility] Result panel 110 (unknown) (no date) (unknown) [facility] (no value) [facility] Result panel 111 (unknown) (no date) (unknown) [facility] (no value) [facility] Result panel 112 (unknown) (no date) (unknown) [facility] (no value) [facility] Result panel 113 (unknown) (no date) (unknown) [facility] (no value) [facility] Result panel 114 (unknown) (no date) (unknown) [facility] (no value) [facility] Result panel 115 (unknown) (no date) (unknown) [facility] (no value) [facility] Result panel 116 (unknown) (no date) (unknown) [facility] (no value) [facility] Result panel 117 (unknown) (no date) (unknown) [facility] (no value) [facility] Result panel 118 (unknown) (no date) (unknown) [facility] (no value) [facility] Result panel 119 (unknown) (no date) (unknown) [facility] (no value) [facility] Result panel 120 (unknown) (no date) (unknown) [facility] (no value) [facility] Result panel 121 (unknown) (no date) (unknown) [facility] (no value) [facility] Result panel 122 (unknown) (no date) (unknown) [facility] (no value) [facility] Result panel 123 (unknown) (no date) (unknown) [facility] (no value) [facility] Result panel 124 (unknown) (no date) (unknown) [facility] (no value) [facility] Result panel 125 (unknown) (no date) (unknown) [facility] (no value) [facility] Result panel 126 (unknown) (no date) (unknown) [facility] (no value) [facility] Result panel 127 (unknown) (no date) (unknown) [facility] (no value) [facility] Result panel 128 (unknown) (no date) (unknown) [facility] (no value) [facility] Result panel 129 (unknown) (no date) (unknown) [facility] (no value) [facility] Result panel 130 (unknown) (no date) (unknown) [facility] (no value) [facility] Result panel 131 (unknown) (no date) (unknown) [facility] (no value) [facility] Result panel 132 (unknown) (no date) (unknown) [facility] (no value) [facility] Result panel 133 (unknown) (no date) (unknown) [facility] (no value) [facility] Result panel 134 (unknown) (no date) (unknown) [facility] (no value) [facility] Result panel 135 (unknown) (no date) (unknown) [facility] (no value) [facility] Result panel 136 (unknown) (no date) (unknown) [facility] (no value) [facility] Result panel 137 (unknown) (no date) (unknown) [facility] (no value) [facility] Result panel 138 (unknown) (no date) (unknown) [facility] (no value) [facility] Result panel 139 (unknown) (no date) (unknown) [facility] (no value) [facility] Result panel 140 (unknown) (no date) (unknown) [facility] (no value) [facility] Result panel 141 (unknown) (no date) (unknown) [facility] (no value) [facility] Result panel 142 (unknown) (no date) (unknown) [facility] (no value) [facility] Result panel 143 (unknown) (no date) (unknown) [facility] (no value) [facility] Result panel 144 (unknown) (no date) (unknown) [facility] (no value) [facility] Result panel 145 (unknown) (no date) (unknown) [facility] (no value) [facility] Result panel 146 (unknown) (no date) (unknown) [facility] (no value) [facility] Result panel 147 (unknown) (no date) (unknown) [facility] (no value) [facility] Result panel 148 (unknown) (no date) (unknown) [facility] (no value) [facility] Result panel 149 (unknown) (no date) (unknown) [facility] (no value) [facility] Result panel 150 (unknown) (no date) (unknown) [facility] (no value) [facility] Result panel 151 (unknown) (no date) (unknown) [facility] (no value) [facility] Result panel 152 (unknown) (no date) (unknown) [facility] (no value) [facility] Result panel 153 (unknown) (no date) (unknown) [facility] (no value) [facility] Result panel 154 (unknown) (no date) (unknown) [facility] (no value) [facility] Result panel 155 (unknown) (no date) (unknown) [facility] (no value) [facility] Result panel 156 (unknown) (no date) (unknown) [facility] (no value) [facility] Result panel 157 (unknown) (no date) (unknown) [facility] (no value) [facility] Result panel 158 (unknown) (no date) (unknown) [facility] (no value) [facility] Result panel 159 (unknown) (no date) (unknown) [facility] (no value) [facility] Result panel 160 (unknown) (no date) (unknown) [facility] (no value) [facility] Result panel 161 (unknown) (no date) (unknown) [facility] (no value) [facility] Result panel 162 (unknown) (no date) (unknown) [facility] (no value) [facility] Result panel 163 (unknown) (no date) (unknown) [facility] (no value) [facility] Result panel 164 (unknown) (no date) (unknown) [facility] (no value) [facility] Result panel 165 (unknown) (no date) (unknown) [facility] (no value) [facility] Result panel 166 (unknown) (no date) (unknown) [facility] (no value) [facility] Result panel 167 (unknown) (no date) (unknown) [facility] (no value) [facility] Result panel 168 (unknown) (no date) (unknown) [facility] (no value) [facility] Result panel 169 (unknown) (no date) (unknown) [facility] (no value) [facility] Result panel 170 (unknown) (no date) (unknown) [facility] (no value) [facility] Result panel 171 (unknown) (no date) (unknown) [facility] (no value) [facility] Result panel 172 (unknown) (no date) (unknown) [facility] (no value) [facility] Result panel 173 (unknown) (no date) (unknown) [facility] (no value) [facility] Result panel 174 (unknown) (no date) (unknown) [facility] (no value) [facility] Result panel 175 (unknown) (no date) (unknown) [facility] (no value) [facility] Result panel 176 (unknown) (no date) (unknown) [facility] (no value) [facility] Result panel 177 (unknown) (no date) (unknown) [facility] (no value) [facility] Result panel 178 (unknown) (no date) (unknown) [facility] (no value) [facility] Result panel 179 (unknown) (no date) (unknown) [facility] (no value) [facility] Result panel 180 (unknown) (no date) (unknown) [facility] (no value) [facility] Result panel 181 (unknown) (no date) (unknown) [facility] (no value) [facility] Result panel 182 (unknown) (no date) (unknown) [facility] (no value) [facility] Result panel 183 (unknown) (no date) (unknown) Walk-In (no value) (units ([facility] [facility] Result panel 184 (unknown) (no date) (unknown) Walk-In (no value) [facility]units [facility] Result panel 185 (unknown) (no date) (unknown) [facility]-In (no value) [facility] Result panel 186 (unknown) (no date) (unknown) [facility]-In (no value) [facility] Result panel 187 (unknown) (no date) (unknown) Walk-In (no value) [facility] Result panel 188 (unknown) (no date) (unknown) [facility] (no value) [facility] Result panel 189 (unknown) (no date) (unknown) [facility] (no value) [facility]units [facility] Result panel 190 (unknown) (no date) (unknown) Walk-In (no value) [facility]units [facility] Result panel 191 (unknown) (no date) (unknown) [facility] (no value) [facility] Result panel 192 (unknown) (no date) (unknown) [facility] (no value) [facility] Result panel 193 (unknown) (no date) (unknown) [facility]-In (no value) [facility] Result panel 194 (unknown) (no date) (unknown) [facility]-In (no value) [facility] Result panel 195 (unknown) (no date) (unknown) [facility]-In (no value) [facility] Result panel 196 (unknown) (no date) (unknown) [facility] (no value) [facility] Result panel 197 (unknown) (no date) (unknown) [facility] (no value) [facility] Result panel 198 (unknown) (no date) (unknown) [facility]-In (no value) [facility] Result panel 199 (unknown) (no date) (unknown) [facility] (no value) [facility] Result panel 200 (unknown) (no date) (unknown) [facility]-In (no value) [facility] Result panel 201 (unknown) (no date) (unknown) [facility] (no value) [facility] Result panel 202 (unknown) (no date) (unknown) [facility] (no value) [facility] Result panel 203 (unknown) (no date) (unknown) [facility]-In (no value) [facility] Result panel 204 (unknown) (no date) (unknown) Walk-In (no value) [facility] Result panel 205 (unknown) (no date) (unknown) Walk-In (no value) [facility] Result panel 206 (unknown) (no date) (unknown) Walk-In (no value) [facility] Result panel 207 (unknown) (no date) (unknown) Walk-In (no value) [facility] Result panel 208 (unknown) (no date) (unknown) [facility]-In (no value) [facility] Result panel 209 (unknown) (no date) (unknown) [facility] (no value) [facility] Result panel 210 (unknown) (no date) (unknown) [facility]-In (no value) [facility] Result panel 211 (unknown) (no date) (unknown) [facility] (no value) [facility] Result panel 212 (unknown) (no date) (unknown) Walk-In (no value) [facility] Result panel 213 (unknown) (no date) (unknown) Walk-In (no value) [facility] Result panel 214 (unknown) (no date) (unknown) Walk-In (no value) [facility] Result panel 215 (unknown) (no date) (unknown) Walk-In (no value) [facility] Result panel 216 (unknown) (no date) (unknown) Walk-In (no value) [facility] Result panel 217 (unknown) (no date) (unknown) Walk-In (no value) [facility] Result panel 218 (unknown) (no date) (unknown) Walk-In (no value) [facility] Result panel 219 (unknown) (no date) (unknown) Walk-In (no value) [facility] Result panel 220 (unknown) (no date) (unknown) Walk-In (no value) [facility] Result panel 221 (unknown) (no date) (unknown) Walk-In (no value) [facility] Result panel 222 (unknown) (no date) (unknown) [facility]-In (no value) [facility] Result panel 223 (unknown) (no date) (unknown) [facility] (no value) [facility] Result panel 224 (unknown) (no date) (unknown) Walk-In (no value) [facility] Result panel 225 (unknown) (no date) (unknown) [facility] (no value) [facility] Result panel 226 (unknown) (no date) (unknown) Walk-In (no value) [facility] Result panel 227 (unknown) (no date) (unknown) Walk-In (no value) [facility] Result panel 228 (unknown) (no date) (unknown) Walk-In (no value) [facility] Result panel 229 (unknown) (no date) (unknown) [facility] (no value) [facility] Result panel 230 (unknown) (no date) (unknown) Walk-In (no value) [facility] Result panel 231 (unknown) (no date) (unknown) Walk-In (no value) [facility] Result panel 232 (unknown) (no date) (unknown) [facility]-In (no value) [facility] Result panel 233 (unknown) (no date) (unknown) Walk-In (no value) [facility] Result panel 234 (unknown) (no date) (unknown) Walk-In (no value) [facility] Result panel 235 (unknown) (no date) (unknown) Walk-In (no value) [facility] Result panel 236 (unknown) (no date) (unknown) Walk-In (no value) [facility] Result panel 237 (unknown) (no date) (unknown) Walk-In (no value) [facility] Result panel 238 (unknown) (no date) (unknown) [facility]-In (no value) [facility] Result panel 239 (unknown) (no date) (unknown) Walk-In (no value) [facility] Result panel 240 (unknown) (no date) (unknown) [facility] (no value) [facility] Result panel 241 (unknown) (no date) (unknown) [facility]-In (no value) ([facility] Result panel 242 (unknown) (no date) (unknown) [facility]-In (no value) [facility] Result panel 243 (unknown) (no date) (unknown) [facility] (no value) [facility] Result panel 244 (unknown) (no date) (unknown) Walk-In (no value) [facility] Result panel 245 (unknown) (no date) (unknown) Walk-In (no value) [facility] Result panel 246 (unknown) (no date) (unknown) Walk-In (no value) [facility] Result panel 247 (unknown) (no date) (unknown) [facility]-In (no value) [facility] Result panel 248 (unknown) (no date) (unknown) [facility]-In (no value) [facility] Result panel 249 (unknown) (no date) (unknown) [facility]-In (no value) [facility] Result panel 250 (unknown) (no date) (unknown) Walk-In (no value) [facility] Result panel 251 (unknown) (no date) (unknown) [facility]-In (no value) [facility] Result panel 252 (unknown) (no date) (unknown) [facility]-In (no value) [facility] Result panel 253 (unknown) (no date) (unknown) Walk-In (no value) ([facility] Result panel 254 (unknown) (no date) (unknown) Walk-In (no value) ([facility] Result panel 255 (unknown) (no date) (unknown) Walk-In (no value) ([facility] Result panel 256 (unknown) (no date) (unknown) [facility]-In (no value) [facility] Result panel 257 (unknown) (no date) (unknown) [facility]-In (no value) ([facility] Result panel 258 (unknown) (no date) (unknown) [facility] (no value) ([facility] Result panel 259 (unknown) (no date) (unknown) Walk-In (no value) ([facility] Result panel 260 (unknown) (no date) (unknown) Walk-In (no value) ([facility] Result panel 261 (unknown) (no date) (unknown) Walk-In (no value) ([facility] Result panel 262 (unknown) (no date) (unknown) [facility]-In (no value) ([facility] Result panel 263 (unknown) (no date) (unknown) [facility]-In (no value) ([facility] Result panel 264 (unknown) (no date) (unknown) Walk-In (no value) [facility] Result panel 265 (unknown) (no date) (unknown) Walk-In (no value) [facility] Result panel 266 (unknown) (no date) (unknown) [facility]-In (no value) [facility] Result panel 267 (unknown) (no date) (unknown) [facility] (no value) [facility] Result panel 268 (unknown) (no date) (unknown) [facility]-In (no value) ([facility] Result panel 269 (unknown) (no date) (unknown) [facility] (no value) ([facility] Result panel 270 (unknown) (no date) (unknown) [facility] (no value) [facility] Result panel 271 (unknown) (no date) (unknown) [facility] (no value) [facility] Result panel 272 (unknown) (no date) (unknown) Walk-[facility] (no value) ([facility] Result panel 273 (unknown) (no date) (unknown) Walk-In (no value) ([facility] Result panel 274 (unknown) (no date) (unknown) Walk-In (no value) ([facility] Result panel 275 (unknown) (no date) (unknown) [facility]-In (no value) [facility] Result panel 276 (unknown) (no date) (unknown) [facility] (no value) ([facility] Result panel 277 (unknown) (no date) (unknown) [facility]-In (no value) [facility] Result panel 278 (unknown) (no date) (unknown) [facility]-In (no value) ([facility] Result panel 279 (unknown) (no date) (unknown) [facility] (no value) [facility] Result panel 280 (unknown) (no date) (unknown) [facility] (no value) [facility] Result panel 281 (unknown) (no date) (unknown) [facility] (no value) [facility] Result panel 282 (unknown) (no date) (unknown) [facility]-In (no value) [facility] Result panel 283 (unknown) (no date) (unknown) Walk-In (no value) [facility] Result panel 284 (unknown) (no date) (unknown) [facility] (no value) [facility] Result panel 285 (unknown) (no date) (unknown) [facility] (no value) [facility] Result panel 286 (unknown) (no date) (unknown) [facility] (no value) ([facility] Result panel 287 (unknown) (no date) (unknown) [facility] (no value) [facility] Result panel 288 (unknown) (no date) (unknown) Walk-In (no value) [facility] Result panel 289 (unknown) (no date) (unknown) [facility] (no value) [facility] Result panel 290 (unknown) (no date) (unknown) [facility]-In (no value) [facility] Result panel 291 (unknown) (no date) (unknown) Walk-In (no value) ([facility] Result panel 292 (unknown) (no date) (unknown) Walk-In (no value) [facility] Result panel 293 (unknown) (no date) (unknown) Walk-In (no value) [facility] Result panel 294 (unknown) (no date) (unknown) Walk-In (no value) [facility] Result panel 295 (unknown) (no date) (unknown) [facility]-In (no value) [facility] Result panel 296 (unknown) (no date) (unknown) [facility]-In (no value) ([facility] Result panel 297 (unknown) (no date) (unknown) [facility]-In (no value) ([facility] Result panel 298 (unknown) (no date) (unknown) [facility] (no value) [facility] Result panel 299 (unknown) (no date) (unknown) [facility]-In (no value) [facility] Result panel 300 (unknown) (no date) (unknown) [facility]-In (no value) ([facility] Result panel 301 (unknown) (no date) (unknown) Walk-In (no value) ([facility] Result panel 302 (unknown) (no date) (unknown) Walk-In (no value) ([facility] Result panel 303 (unknown) (no date) (unknown) Walk-In (no value) ([facility] Result panel 304 (unknown) (no date) (unknown) [facility]-In (no value) ([facility] Result panel 305 (unknown) (no date) (unknown) Walk-In (no value) ([facility] Result panel 306 (unknown) (no date) (unknown) Walk-In (no value) ([facility] Result panel 307 (unknown) (no date) (unknown) Walk-In (no value) ([facility] Result panel 308 (unknown) (no date) (unknown) Walk-In (no value) ([facility] Result panel 309 (unknown) (no date) (unknown) Walk-In (no value) ([facility] Result panel 310 (unknown) (no date) (unknown) Walk-In (no value) ([facility] Result panel 311 (unknown) (no date) (unknown) Walk-In (no value) ([facility] Result panel 312 (unknown) (no date) (unknown) Walk-In (no value) ([facility] Result panel 313 (unknown) (no date) (unknown) Walk-In (no value) ([facility] Result panel 314 (unknown) (no date) (unknown) Walk-In (no value) ([facility] Result panel 315 (unknown) (no date) (unknown) Walk-In (no value) ([facility] Result panel 316 (unknown) (no date) (unknown) Walk-In (no value) ([facility] Result panel 317 (unknown) (no date) (unknown) Walk-In (no value) ([facility] Result panel 318 (unknown) (no date) (unknown) [facility]-In (no value) ([facility] Result panel 319 (unknown) (no date) (unknown) Walk-In (no value) ([facility] Result panel 320 (unknown) (no date) (unknown) Walk-In (no value) ([facility] Result panel 321 (unknown) (no date) (unknown) Walk-In (no value) [facility] Result panel 322 (unknown) (no date) (unknown) Walk-In (no value) [facility] Result panel 323 (unknown) (no date) (unknown) Walk-In (no value) ([facility] Result panel 324 (unknown) (no date) (unknown) Walk-In (no value) ([facility] Result panel 325 (unknown) (no date) (unknown) Walk-In (no value) [facility] Result panel 326 (unknown) (no date) (unknown) Walk-In (no value) ([facility] Result panel 327 (unknown) (no date) (unknown) Walk-In (no value) ([facility] Result panel 328 (unknown) (no date) (unknown) Walk-In (no value) ([facility] Result panel 329 (unknown) (no date) (unknown) Walk-In (no value) [facility] Result panel 330 (unknown) (no date) (unknown) [facility]-In (no value) [facility] Result panel 331 (unknown) (no date) (unknown) [facility] (no value) [facility] Result panel 332 (unknown) (no date) (unknown) Walk-In (no value) [facility] Result panel 333 (unknown) (no date) (unknown) [facility]-In (no value) [facility] Result panel 334 (unknown) (no date) (unknown) [facility]-In (no value) [facility] Result panel 335 (unknown) (no date) (unknown) Walk-In (no value) [facility] Result panel 336 (unknown) (no date) (unknown) Walk-[facility] (no value) ([facility] Result panel 337 (unknown) (no date) (unknown) Walk-In (no value) [facility] Result panel 338 (unknown) (no date) (unknown) [facility]-In (no value) [facility] Result panel 339 (unknown) (no date) (unknown) Walk-In (no value) ([facility] Result panel 340 (unknown) (no date) (unknown) Walk-In (no value) [facility] Result panel 341 (unknown) (no date) (unknown) Walk-In (no value) ([facility] Result panel 342 (unknown) (no date) (unknown) Walk-In (no value) ([facility] Result panel 343 (unknown) (no date) (unknown) Walk-In (no value) ([facility] Result panel 344 (unknown) (no date) (unknown) Walk-In (no value) ([facility] Result panel 345 (unknown) (no date) (unknown) [facility]-In (no value) ([facility] Result panel 346 (unknown) (no date) (unknown) Walk-In (no value) ([facility] Result panel 347 (unknown) (no date) (unknown) Walk-In (no value) ([facility] Result panel 348 (unknown) (no date) (unknown) Walk-In (no value) ([facility] Result panel 349 (unknown) (no date) (unknown) Walk-In (no value) ([facility] Result panel 350 (unknown) (no date) (unknown) Walk-In (no value) ([facility] Result panel 351 (unknown) (no date) (unknown) Walk-[facility] (no value) [facility] Result panel 352 (unknown) (no date) (unknown) Walk-In (no value) (units (unk nown[facility] Result panel 353 (unknown) (no date) (unknown) Walk-In (no value) (units ([facility] nown) [facility] Result panel 354 (unknown) (no date) (unknown) [facility] (no value) (units [facility] Result panel 355 (unknown) (no date) (unknown) [facility] (no value) [facility]units [facility]own[facility] Result panel 356 (unknown) (no date) (unknown) [facility] (no value) [facility]units [facility] Result panel 357 (unknown) (no date) (unknown) [facility] (no value) [facility]units [facility] Result panel 358 (unknown) (no date) (unknown) Walk-In (no value) (units [facility]own[facility] Result panel 359 (unknown) (no date) (unknown) Walk-In (no value) (units [facility] Result panel 360 (unknown) (no date) (unknown) Walk-[facility] (no value) [facility]units [facility] Result panel 361 (unknown) (no date) (unknown) Walk-[facility] (no value) [facility]units [facility] Result panel 362 (unknown) (no date) (unknown) Walk-In (no value) (units ([facility] nown) [facility] Result panel 363 (unknown) (no date) (unknown) Walk-In (no value) [facility]units [facility] Result panel 364 (unknown) (no date) (unknown) [facility] (no value) [facility]units [facility] Result panel 365 (unknown) (no date) (unknown) [facility] (no value) (units [facility] Result panel 366 (unknown) (no date) (unknown) Walk-[facility] (no value) [facility]units [facility] Result panel 367 (unknown) (no date) (unknown) Walk-In (no value) (units ([facility] Result panel 368 (unknown) (no date) (unknown) Walk-[facility] (no value) [facility]units [facility] Result panel 369 (unknown) (no date) (unknown) Walk-In (no value) [facility]units [facility] Result panel 370 (unknown) (no date) (unknown) Walk-In (no value) [facility]units [facility] Result panel 371 (unknown) (no date) (unknown) Walk-[facility] (no value) [facility]units [facility] Result panel 372 (unknown) (no date) (unknown) Walk-In (no value) [facility]units [facility] Result panel 373 (unknown) (no date) (unknown) Walk-In (no value) [facility]units [facility] Result panel 374 (unknown) (no date) (unknown) Walk-In (no value) [facility]units [facility] Result panel 375 (unknown) (no date) (unknown) Walk-In (no value) [facility]units [facility] Result panel 376 (unknown) (no date) (unknown) Walk-In (no value) (units [facility] Result panel 377 (unknown) (no date) (unknown) Walk-In (no value) [facility]units [facility] Result panel 378 (unknown) (no date) (unknown) Walk-In (no value) (units [facility] Result panel 379 (unknown) (no date) (unknown) Walk-In (no value) (units [facility] Result panel 380 (unknown) (no date) (unknown) [facility] (no value) (units [facility] Result panel 381 (unknown) (no date) (unknown) Walk-In (no value) (units [facility] Result panel 382 (unknown) (no date) (unknown) Walk-In (no value) (units [facility] Result panel 383 (unknown) (no date) (unknown) Walk-In (no value) (units [facility] Result panel 384 (unknown) (no date) (unknown) Walk-In (no value) (units [facility] Result panel 385 (unknown) (no date) (unknown) Walk-In (no value) (units ([facility] Result panel 386 (unknown) (no date) (unknown) Walk-In (no value) (units [facility] Result panel 387 (unknown) (no date) (unknown) Walk-In (no value) (units [facility] Result panel 388 (unknown) (no date) (unknown) Walk-In (no value) (units [facility] Result panel 389 (unknown) (no date) (unknown) Walk-In (no value) (units [facility] Result panel 390 (unknown) (no date) (unknown) Walk-[facility] (no value) (units [facility] Result panel 391 (unknown) (no date) (unknown) Walk-[facility] (no value) (units [facility] Result panel 392 (unknown) (no date) (unknown) Walk-In (no value) (units [facility] Result panel 393 (unknown) (no date) (unknown) Walk-[facility] (no value) [facility]units [facility] Result panel 394 (unknown) (no date) (unknown) Walk-[facility] (no value) (units [facility] Result panel 395 (unknown) (no date) (unknown) Walk-[facility] (no value) (units [facility] Result panel 396 (unknown) (no date) (unknown) Walk-[facility] (no value) (units [facility] Result panel 397 (unknown) (no date) (unknown) Walk-In (no value) (units [facility] Result panel 398 (unknown) (no date) (unknown) Walk-[facility] (no value) (units [facility] Result panel 399 (unknown) (no date) (unknown) [facility] (no value) (units [facility] Result panel 400 (unknown) (no date) (unknown) Walk-In (no value) [facility]units [facility] Result panel 401 (unknown) (no date) (unknown) Walk-In (no value) (units [facility] Result panel 402 (unknown) (no date) (unknown) Walk-In (no value) (units [facility] Result panel 403 (unknown) (no date) (unknown) Walk-In (no value) (units [facility] Result panel 404 (unknown) (no date) (unknown) Walk-In (no value) (units [facility] Result panel 405 (unknown) (no date) (unknown) Walk-In (no value) (units [facility] Result panel 406 (unknown) (no date) (unknown) Walk-In (no value) (units [facility] Result panel 407 (unknown) (no date) (unknown) Walk-[facility] (no value) (units [facility] Result panel 408 (unknown) (no date) (unknown) Walk-In (no value) (units [facility] Result panel 409 (unknown) (no date) (unknown) [facility] (no value) (units [facility] Result panel 410 (unknown) (no date) (unknown) Walk-In (no value) (units [facility] Result panel 411 (unknown) (no date) (unknown) Walk-[facility] (no value) (units [facility] Result panel 412 (unknown) (no date) (unknown) [facility] (no value) (units [facility] Result panel 413 (unknown) (no date) (unknown) Walk-[facility] (no value) (units [facility] Result panel 414 (unknown) (no date) (unknown) Walk-In (no value) (units [facility] Result panel 415 (unknown) (no date) (unknown) Walk-In (no value) (units [facility] Result panel 416 (unknown) (no date) (unknown) Walk-In (no value) (units [facility] Result panel 417 (unknown) (no date) (unknown) Walk-In (no value) (units [facility] Result panel 418 (unknown) (no date) (unknown) Walk-In (no value) (units [facility] Result panel 419 (unknown) (no date) (unknown) Walk-In (no value) (units ([facility] Result panel 420 (unknown) (no date) (unknown) Walk-In (no value) (units ([facility] Result panel 421 (unknown) (no date) (unknown) Walk-In (no value) (units ([facility] Result panel 422 (unknown) (no date) (unknown) Walk-In (no value) (units ([facility] Result panel 423 (unknown) (no date) (unknown) Walk-In (no value) (units ([facility] Result panel 424 (unknown) (no date) (unknown) Walk-In (no value) (units ([facility] Result panel 425 (unknown) (no date) (unknown) Walk-In (no value) (units ([facility] Result panel 426 (unknown) (no date) (unknown) Walk-In (no value) (units ([facility] Result panel 427 (unknown) (no date) (unknown) Walk-In (no value) (units ([facility] Result panel 428 (unknown) (no date) (unknown) Walk-In (no value) (units ([facility]own[facility] Result panel 429 (unknown) (no date) (unknown) Walk-In (no value) (units ([facility] Result panel 430 (unknown) (no date) (unknown) Walk-In (no value) (units ([facility] Result panel 431 (unknown) (no date) (unknown) Walk-In (no value) (units ([facility] Result panel 432 (unknown) (no date) (unknown) Walk-In (no value) (units ([facility] Result panel 433 (unknown) (no date) (unknown) Walk-In (no value) (units ([facility] Result panel 434 (unknown) (no date) (unknown) [facility] (no value) [facility]units [facility] Result panel 435 (unknown) (no date) (unknown) Walk-In (no value) (units [facility] Result panel 436 (unknown) (no date) (unknown) Walk-In (no value) (units ([facility] Result panel 437 (unknown) (no date) (unknown) Walk-In (no value) (units ([facility] Result panel 438 (unknown) (no date) (unknown) Walk-In (no value) (units ([facility] Result panel 439 (unknown) (no date) (unknown) Walk-In (no value) (units ([facility] Result panel 440 (unknown) (no date) (unknown) Walk-In (no value) (units ([facility] Result panel 441 (unknown) (no date) (unknown) Walk-In (no value) (units ([facility] Result panel 442 (unknown) (no date) (unknown) Walk-In (no value) (units ([facility] Result panel 443 (unknown) (no date) (unknown) Walk-In (no value) (units ([facility]own[facility] Result panel 444 (unknown) (no date) (unknown) Walk-In (no value) (units ([facility] Result panel 445 (unknown) (no date) (unknown) Walk-In (no value) (units ([facility] Result panel 446 (unknown) (no date) (unknown) Walk-In (no value) (units ([facility] Result panel 447 (unknown) (no date) (unknown) Walk-In (no value) (units ([facility] Result panel 448 (unknown) (no date) (unknown) Walk-In (no value) (units ([facility] Result panel 449 (unknown) (no date) (unknown) Walk-In (no value) (units ([facility] Result panel 450 (unknown) (no date) (unknown) [facility]-In (no value) (units ([facility] Result panel 451 (unknown) (no date) (unknown) Walk-In (no value) (units ([facility] nown[facility] Result panel 452 (unknown) (no date) (unknown) Walk-In (no value) (units ([facility] Result panel 453 (unknown) (no date) (unknown) Walk-In (no value) (units ([facility] Result panel 454 (unknown) (no date) (unknown) Walk-In (no value) (units ([facility] Result panel 455 (unknown) (no date) (unknown) Walk-In (no value) (units ([facility]own[facility] Result panel 456 (unknown) (no date) (unknown) Walk-In (no value) (units ([facility] Result panel 457 (unknown) (no date) (unknown) Walk-In (no value) (units ([facility] Result panel 458 (unknown) (no date) (unknown) Walk-In (no value) (units ([facility] Result panel 459 (unknown) (no date) (unknown) Walk-In (no value) (units ([facility] nown[facility] Result panel 460 (unknown) (no date) (unknown) Walk-In (no value) (units ([facility] Result panel 461 (unknown) (no date) (unknown) Walk-In (no value) (units ([facility] nown[facility] Result panel 462 (unknown) (no date) (unknown) Walk-In (no value) (units ([facility] n[facility] Result panel 463 (unknown) (no date) (unknown) Walk-In (no value) (units ([facility] n[facility] Result panel 464 (unknown) (no date) (unknown) Walk-In (no value) (units ([facility] nown[facility] Result panel 465 (unknown) (no date) (unknown) Walk-In (no value) (units ([facility] n[facility] Result panel 466 (unknown) (no date) (unknown) Walk-In (no value) (units ([facility] nown[facility] Result panel 467 (unknown) (no date) (unknown) Walk-In (no value) (units ([facility] Result panel 468 (unknown) (no date) (unknown) Walk-In (no value) (units ([facility] nown[facility] Result panel 469 (unknown) (no date) (unknown) Walk-In (no value) (units ([facility] nown[facility] Result panel 470 (unknown) (no date) (unknown) Walk-In (no value) (units ([facility] nown[facility] Result panel 471 (unknown) (no date) (unknown) Walk-In (no value) (units ([facility]own[facility] Result panel 472 (unknown) (no date) (unknown) Walk-In (no value) (units ([facility] nown[facility] Result panel 473 (unknown) (no date) (unknown) Walk-In (no value) (units ([facility] nown[facility] Result panel 474 (unknown) (no date) (unknown) Walk-In (no value) (units ([facility] nown[facility] Result panel 475 (unknown) (no date) (unknown) [facility] (no value) [facility] Result panel 476 (unknown) (no date) (unknown) [facility] (no value) (units [facility]own[facility] Result panel 477 (unknown) (no date) (unknown) Walk-In (no value) (units ([facility] Result panel 478 (unknown) (no date) (unknown) Walk-In (no value) (units ([facility] Result panel 479 (unknown) (no date) (unknown) Walk-[facility] (no value) (units ([facility] nown[facility] Result panel 480 (unknown) (no date) (unknown) Walk-In (no value) (units ([facility] nown[facility] Result panel 481 (unknown) (no date) (unknown) Walk-In (no value) (units ([facility] nown[facility] Result panel 482 (unknown) (no date) (unknown) Walk-In (no value) (units ([facility] nown[facility] Result panel 483 (unknown) (no date) (unknown) Walk-In (no value) (units ([facility] nown[facility] Result panel 484 (unknown) (no date) (unknown) Walk-In (no value) (units ([facility] nown[facility] Result panel 485 (unknown) (no date) (unknown) Walk-In (no value) (units ([facility] nown[facility] Result panel 486 (unknown) (no date) (unknown) Walk-In (no value) (units ([facility]own[facility] Result panel 487 (unknown) (no date) (unknown) Walk-[facility] (no value) [facility]units [facility]own[facility] Social History date description facility 2022-06-06 00:00 Never smoker All 2022-06-06 00:00 Never smoker Walk[facility] [place] 2022-07-17 00:00 Never smoker Walk[facility]In [facility] [place] Vital Signs date measurement value units 2022-06-06 00:00 BMI 29.01 kg/m2 2022-06-06 00:00 BP_diastolic 63 mmHg 2022-06-06 00:00 BP_systolic 108 mmHg 2022-06-06 00:00 heart_rate 63 /min 2022-06-06 00:00 height_metric 161.29 cm 2022-06-06 00:00 height_standard 63.5 in 2022-06-06 00:00 respiration_rate 16 /min 2022-06-06 00:00 temperature_metric 36.67 C 2022-06-06 00:00 temperature_standard 98 F 2022-06-06 00:00 weight_metric 75.21 kg 2022-06-06 00:00 weight_standard 165.8 lb 2022-07-17 00:00 BMI 28.87 kg/m2 2022-07-17 00:00 BP_diastolic 58 mmHg 2022-07-17 00:00 BP_systolic 132 mmHg 2022-07-17 00:00 heart_rate 53 /min 2022-07-17 00:00 height_metric 161.29 cm 2022-07-17 00:00 height_standard 63.5 in 2022-07-17 00:00 respiration_rate 15 /min 2022-07-17 00:00 temperature_metric 36.61 C 2022-07-17 00:00 temperature_standard 97.9 F 2022-07-17 00:00 weight_metric 74.84 kg 2022-07-17 00:00 weight_standard 165 lb 2022-07-24 00:00 BMI 28.87 kg/m2 2022-07-24 00:00 BP_diastolic 69 mmHg 2022-07-24 00:00 BP_systolic 152 mmHg 2022-07-24 00:00 heart_rate 53 /min 2022-07-24 00:00 height_metric 161.29 cm 2022-07-24 00:00 height_standard 63.5 in 2022-07-24 00:00 respiration_rate 16 /min 2022-07-24 00:00 temperature_metric 36.44 C 2022-07-24 00:00 temperature_standard 97.6 F 2022-07-24 00:00 weight_metric 74.84 kg 2022-07-24 00:00 weight_standard 165 lb
[2022-08-29 14:49] LABS: BASOPHILS # (AUTO) 0.1 10^3/uL (0.0-0.1); BASOPHILS % (AUTO) 0.6 %; EOSINOPHILS # (AUTO) 0.2 10^3/uL (0.0-0.7); EOSINOPHILS % (AUTO) 1.8 %; HCT - HEMATOCRIT 39.1 % (37.0-47.0); HGB - HEMOGLOBIN 12.2 g/dL (12.0-16.0); LYMPHOCYTES % (AUTO) 18.8 %; MEAN CORPUSCULAR HEMOGLOBIN 29.5 pg (27.0-31.0); MEAN CORPUSCULAR HGB CONC 31.2 g/dL (32.0-36.0); MEAN CORPUSCULAR VOLUME 94.7 fL (81.0-99.0); MEAN PLATELET VOLUME 11.6 fL (7.9-10.8); MONOCYTES # (AUTO) 0.8 10^3/uL (0.0-1.0); MONOCYTES % (AUTO) 7.2 %; NEUTROPHILS # (AUTO) 7.8 10^3/uL (1.5-6.6); NEUTROPHILS % (AUTO) 71.4 %; PLT - PLATELET COUNT 192 10^3/uL (130-450); RED BLOOD COUNT 4.13 10^6/uL (4.20-5.40); RED CELL DISTRIBUTION WIDTH 13.2 % (12.0-15.0); WHITE BLOOD COUNT 10.8 x10^3/uL (4.8-10.8)
--- NOTE | 2022-08-29 14:57 | XRAY Report ---
PROCEDURE: Chest 1 View X-Ray INDICATIONS: Chest pain TECHNIQUE: One view of the chest was acquired. COMPARISON: 03/26/2022 FINDINGS: Surgical changes and devices: CABG. There are also clips projecting to the superior right hemithorax . Lungs and pleura: Acute pulmonary edema. Minimal right pleural effusion. Mediastinum: Mediastinal contours appear normal. Cardiomegaly. Bones and chest wall: No suspicious bony lesions. Overlying soft tissues appear unremarkable. IMPRESSION: Congestive heart failure exacerbation. Reviewed by: Ethan Zhou MD on 08/29/2022 2:56 PM PST Approved by: Ethan Zhou MD on 08/29/2022 2:56 PM PST Station ID: [id number]
[2022-08-29 15:04] LABS: ALBUMIN 4.2 g/dL (3.2-5.5); ALBUMIN/GLOBULIN RATIO 1.4 (1.0-2.2); BILIRUBIN,TOTAL 0.8 mg/dL (0.2-1.0); CALCIUM 9.2 mg/dL (8.5-10.3); CREATININE 1.5 mg/dL (0.4-1.0); POTASSIUM 4.4 mmol/L (3.5-5.0); TOTAL PROTEIN 7.2 g/dL (6.7-8.2)
--- NOTE | 2022-08-29 15:09 | ED Physician Documentation ---
PD HPI CHEST PAIN - Stated complaint Stated Complaint: CHEST PX, SOA - Chief complaint Chief Complaint: Cardiac - History obtained from History obtained from: Patient - History of Present Illness Timing - onset during: Rest, Exertion - Additional information Additional information: Patient is an 86-year-old female who presents to the emergency department with d ifficulty breathing and chest pain for the past several weeks. She states it is worse with exertion better with rest. She states she is mainly having a hard time breathing. She has a known history of aortic stenosis and was supposed to see a panel builder about a valve replacement, but canceled the appointment. She is accompanied by her sister today. Review of Systems Unable to obtain: Other (Poor historian) Constitutional: denies: Fever, Chills Throat: denies: Sore throat Respiratory: denies: Dyspnea, Cough GI: denies: Vomiting, Diarrhea Skin: denies: Rash Musculoskeletal: denies: Neck pain, Back pain Neurologic: denies: Headache PD PAST MEDICAL HISTORY - Past Medical History Cardiovascular: Congestive heart failure, Hypertension, High cholesterol, Coronary artery disease, [place], Arrhythmia, Valve disorder, Other Respiratory: Shortness of breath Neuro: Dementia, Other (no migraines nor cluster headaches. ) Endocrine/Autoimmune: Type 2 diabetes, HyPERthyroidism GI: GERD, Hiatal hernia, Hemorrhoids, Diverticulitis, Other CHAIN REPAIRER: None : Renal insuffiency, Other HEENT: Chronic vision loss, Chronic hearing loss, Other Psych: Depression, Claustrophobia Musculoskeletal: Osteoarthritis, Chronic back pain Derm: Other - Past Surgical History Past Surgical History: Yes General: Cholecystectomy, Appendectomy, Colonoscopy, EGD, Other Ortho: Rotator cuff repair, Spine surgery, Other /CHAIN REPAIRER: 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 Cardiovascular: CABG, Coronary stent, Cardiac catheterization, Angioplasty - Present Medications Home Medications: Ambulatory Orders Medication Instructions Recorded Confirmed Valsartan [Diovan] 80 mg PO QPM 11/13/17 01/11/22 Cholecalciferol [Vitamin D3] 2,000 units PO DAILY 03/12/18 01/11/22 Nitroglycerin [Nitrostat] 0.4 mg PO Q5M PRN 03/12/18 01/11/22 Metoprolol Tartrate 12.5 mg PO QPM 05/14/20 01/11/22 Acetaminophen [Acetaminophen Extra 500 mg PO QID 10 Days #40 tablet 01/08/22 01/11/22 Strength] dexAMETHasone [Decadron] 4 mg PO DAILY 6 Days #6 tablet 01/08/22 01/11/22 Amitriptyline [Elavil] 10 mg PO QPM 01/11/22 Aspirin [Aspirin EC] 81 mg PO DAILY 01/11/22 Atorvastatin Calcium 40 mg PO QPM 01/11/22 Cyanocobalamin (Vitamin B-12) 1,000 mcg PO DAILY 01/11/22 [Vitamin B-12] Meloxicam [Mobic] 7.5 mg PO DAILY 01/11/22 metFORMIN [Glucophage] 500 mg PO BIDWM 01/11/22 methIMAzole [Methimazole] 2.5 mg PO DAILY 01/11/22 - Allergies Allergies/Adverse Reactions: Allergies Allergy/AdvReac Type Severity Reaction Status Date / Time meperidine HCl * Allergy Severe Respiratory Verified 03/26/22 11:08 [From Demerol] pain meds Allergy Intermediate Nausea Uncoded 03/26/22 11:08 preservatives in lidocaine Allergy Intermediate Respiratory Uncoded 03/26/22 11:08 preservatives in medications Allergy Intermediate Respiratory Uncoded 03/26/22 11:08 - Social History Does the pt smoke?: No Smoking Status: Never smoker Does the pt drink ETOH?: No Does the pt have substance abuse?: Yes - Immunizations Immunizations are current?: Yes - POLST Patient has POLST: Yes POLST Status: Full Code PD ED PE NORMAL - Vitals Vital signs reviewed: Yes - General General: Alert and oriented X 3, No acute distress - HEENT HEENT: Moist mucous membranes - Neck Neck: Supple, no meningeal sign - Cardiac Cardiac: RRR, Other (Harsh systolic murmur) - Respiratory Respiratory: No respiratory distress, Clear bilaterally - Abdomen Abdomen: Soft, Non tender, Non distended - Derm Derm: Warm and dry - Neuro Neuro: Alert and oriented X 3 - Psych Psych: Normal mood, Normal affect Results - Vitals Vitals: Vital Signs - 24 hr 08/29/22 08/29/22 08/29/22 14:26 15:00 15:30 Temperature 36 C L Heart Rate 91 78 74 Respiratory 16 17 25 H Rate Blood Pressure 138/79 H 146/56 H 146/56 H O2 Saturation 96 98 96 08/29/22 08/29/22 08/29/22 16:00 16:30 17:18 Temperature Heart Rate 82 83 83 Respiratory 28 H 21 27 H Rate Blood Pressure 128/100 H 114/61 131/87 H O2 Saturation 99 98 93 Oxygen O2 Source Room air - EKG (time done) 1451 Rate: Rate (enter#) (70) Rhythm: NSR Intervals: RBBB Ischemia: Other (No ischemic changes) - Labs Labs: Laboratory Tests 08/29/22 08/29/22 08/29/22 06:05 14:45 14:45 WBC 10.8 RBC 4.13 L Hgb 12.2 Hct 39.1 MCV 94.7 MCH 29.5 MCHC 31.2 L RDW 13.2 Plt Count 192 MPV 11.6 H Neut # (Auto) 7.8 H Lymph # (Auto) 2.0 Sawyer # (Auto) 0.8 Eos # (Auto) 0.2 Baso # (Auto) 0.1 Absolute Nucleated RBC 0.00 Nucleated RBC % 0.0 Sodium 138 Potassium 4.4 Chloride 108 Carbon Dioxide 21 Anion Gap 9.0 BUN 32 H Creatinine 1.5 H Estimated GFR (MDRD) 33 L Glucose 138 H Calcium 9.2 Total Bilirubin 0.8 AST 37 ALT 22 Alkaline Phosphatase 92 Troponin I High Sens B-Natriuretic Peptide Total Protein 7.2 Albumin 4.2 Globulin 3.0 Albumin/Globulin Ratio 1.4 Lipase 44 Nasal Adenovirus (PCR) NOT DETECTED Nasal B. parapertussis DNA (PCR) NOT DETECTED Nasal Coronavir 229E PCR NOT DETECTED Nasal Coronavir HKU1 PCR NOT DETECTED Nasal Coronavir NL63 PCR NOT DETECTED Nasal Coronavir OC43 PCR NOT DETECTED Nasal Enterovir/Rhinovir PCR NOT DETECTED Nasal Influenza B PCR NOT DETECTED Nasal Influenza A PCR NOT DETECTED Nasal Parainfluen 1 PCR NOT DETECTED Nasal Parainfluen 2 PCR NOT DETECTED Nasal Parainfluen 3 PCR NOT DETECTED Nasal Parainfluen 4 PCR NOT DETECTED Nasal RSV (PCR) NOT DETECTED Nasal B.pertussis DNA PCR NOT DETECTED Nasal C.pneumoniae (PCR) NOT DETECTED Iván Human Metapneumo PCR NOT DETECTED Nasal M.pneumoniae (PCR) NOT DETECTED Nasal SARS-CoV-2 (PCR) NOT DETECTED 08/29/22 08/29/22 14:45 14:45 WBC RBC Hgb Hct MCV MCH MCHC RDW Plt Count MPV Neut # (Auto) Lymph # (Auto) Sawyer # (Auto) Eos # (Auto) Baso # (Auto) Absolute Nucleated RBC Nucleated RBC % Sodium Potassium Chloride Carbon Dioxide Anion Gap BUN Creatinine Estimated GFR (MDRD) Glucose Calcium Total Bilirubin AST ALT Alkaline Phosphatase Troponin I High Sens 1960.9 H* B-Natriuretic Peptide 2346 H Total Protein Albumin Globulin Albumin/Globulin Ratio Lipase Nasal Adenovirus (PCR) Nasal B. parapertussis DNA (PCR) Nasal Coronavir 229E PCR Nasal Coronavir HKU1 PCR Nasal Coronavir NL63 PCR Nasal Coronavir OC43 PCR Nasal Enterovir/Rhinovir PCR Nasal Influenza B PCR Nasal Influenza A PCR Nasal Parainfluen 1 PCR Nasal Parainfluen 2 PCR Nasal Parainfluen 3 PCR Nasal Parainfluen 4 PCR Nasal RSV (PCR) Nasal B.pertussis DNA PCR Nasal C.pneumoniae (PCR) Iván Human Metapneumo PCR Nasal M.pneumoniae (PCR) Nasal SARS-CoV-2 (PCR) - Rads (name of study) cxr Radiology: Final report received, See rad report (Pulmonary edema) PD Medical Decision Making - ED course Complexity details: reviewed results, re-evaluated patient, considered differential, d/w patient, d/w freight traffic consultant (Dr. You, cardiology) ED course: 86-year-old female presents to the emergency department with ongoing chest pain for the past few weeks, unable to describe it in any detail. She is unsure if it changes with exertion or rest. She does have a history of a CABG and multiple stents. She is seen at the [facility], Dr. Dubon. Spoke with Dr. You, on-call cardiology. She states that upon review of the patient's records it does appear that she has several clotted veins in her bypass graft. They stented what they were able to but there is small vessel and distal disease. Does not believe that the patient will be a candidate for any more interventions at this time other than potential TAVR for her aortic stenosis. This would be done as an outpatient and not as an acute issue. Recommends medical management of the heart failure and NSTEMI. Patient was given Lasix and Lovenox. Took aspirin already today. Discussed the case with Dr. Mujica, hospitalist who accepts for admission here. This document was made in part using voice recognition software. While efforts are made to proofread this document, sound alike and grammatical errors may occur. Departure - Departure Disposition: 66 [facility] DC/Xfer Clinical Impression: NSTEMI (non-ST elevated myocardial infarction) Pulmonary edema Qualifiers: Chronicity: acute Qualified Code(s): J81.0 - Acute pulmonary edema Aortic stenosis Qualifiers: Cardiac valve disease etiology: etiology unspecified Qualified Code(s): I35.0 - Nonrheumatic aortic (valve) stenosis Congestive heart failure Qualifiers: Heart failure type: unspecified Heart failure chronicity: unspecified Qualified Code(s): I50.9 - Heart failure, unspecified Condition: Stable
[2022-08-29] MEDS ORDERED: FUROSEMIDE 40 MG/4 ML VIAL IVP STA (16:34)
[2022-08-29] MEDS ORDERED: ENOXAPARIN 80 MG/0.8 ML SYRINGE SUBQ STA (16:34)
[2022-08-29 17:03] LABS: B. PARAPERTUSSIS- RESP PCR PAN NOT DETECTED; B. PERTUSSIS- RESP PCR PANEL NOT DETECTED; C. PNEUMONIAE- RESP PCR PANEL NOT DETECTED; CORONAVIRUS 229E-RESP PCR NOT DETECTED; CORONAVIRUS HKU1-RESP PCR NOT DETECTED; CORONAVIRUS NL63-RESP PCR NOT DETECTED; CORONAVIRUS OC43-RESP PCR NOT DETECTED; HUMAN METAPNEUMOVIRUS NOT DETECTED; INFLUENZA A- RESP PCR PANEL NOT DETECTED; INFLUENZA B - RESP PCR PANEL NOT DETECTED; M. PNEUMONIAE- RESP PCR PANEL NOT DETECTED; PARAINFLUENZA VIRUS 1 NOT DETECTED; PARAINFLUENZA VIRUS 2 NOT DETECTED; PARAINFLUENZA VIRUS 3 NOT DETECTED; PARAINFLUENZA VIRUS 4 NOT DETECTED; RHINOVIRUS/ENTEROVIRUS NOT DETECTED; RSV- RESP PCR PANEL NOT DETECTED; SARS-CoV-2 -RESP PCR PANEL NOT DETECTED
[2022-08-29] MEDS ORDERED: ATORVASTATIN 40 MG TABLET PO STA (17:31)
[2022-08-29] MEDS ORDERED: NITROGLYCERIN 2% PASTE TOP SCH (18:00)
[2022-08-29] MEDS ORDERED: CLOPIDOGREL 300 MG TABLET PO ONE ×2 (18:53→19:19)
--- NOTE | 2022-08-29 19:02 | HISTORY & PHYSICAL EXAMINATION ---
Chief Complaint - Chief Complaint Chief Complaint: chest pain, shortness of breath, dizziness History of Present Illness - Admitted From Admitted From:: ED - History Obtained From History obtained from: ED provider and the patient - History of Present Illness HPI Comment/Other: This is an 86-year-old white female who has a history of coronary disease, CABG and stents, aortic stenosis, hypertension, dementia and diabetes on metformin. The patient has been advised to undergo TAVR for her severe aortic stenosis and has declined this. The patient is compliant with all her medications. Two days ago when she was at a birthday constitution party she felt dizzy briefly, while walking. Since that time she has had on and off episodes of shortness of breath with activity and episodes of chest pain. She cannot remember how long the chest pain lasts. She is vague about all her symptoms. She told her friend about the symptoms who brought her to the emergency room. In the ER she had stable vital signs but labs came back showing a troponin of 1900, BNP 2500 and chest x-ray showing pulmonary edema. Her EKG showed RBBB and had no changes from previous. She received Lasix IV and a therapeutic dose of Lovenox 70 mg subcu. The ER provider, Dr. Whiting, spoke to her [employer] Writer's covering doctor who reviewed her last angiogram: The patient has a history of clots in her CABG blood vessels and she underwent stenting of those bypasses plus stenting in [place] coronary arteries and still has some distal coronary disease. Further management should be medical, was the recommendation. The patient had some improvement after receiving the Lasix, is able to lie supine. The ED provider reached out to the Hospitalist team to discuss further management going forward and she will need Inpatient hospitalization for treating her acute NSTEMI and flash pulmonary edema. Patient has a POLST on file which indicates she wants to be a DNR and only comfort directed treatments. History - Past Medical History Cardiovascular: reports: Congestive heart failure, Hypertension, High cholesterol, Coronary artery disease, [place], Arrhythmia, Valve disorder, Other Respiratory: reports: Shortness of breath Neuro: reports: Dementia, Other (no migraines nor cluster headaches. ) Endocrine/Autoimmune: reports: Type 2 diabetes, HyPERthyroidism GI: reports: GERD, Hiatal hernia, Hemorrhoids, Diverticulitis, Other ADVERTISING ACCOUNT MANAGER: reports: None : reports: Renal insuffiency, Other HEENT: reports: Chronic vision loss, Chronic hearing loss, Other Psych: reports: Depression, Claustrophobia Musculoskeletal: reports: Osteoarthritis, Chronic back pain Derm: reports: Other MRSA Hx?: No - Past Surgical History General: reports: Cholecystectomy, Appendectomy, Colonoscopy, EGD, Other Ortho: reports: Rotator cuff repair, Spine surgery, Other /ADVERTISING ACCOUNT MANAGER: reports: 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 Cardiovascular: reports: CABG, Coronary stent, Cardiac catheterization, Bibi oplasty Other past surgical history: Has had 7 surgeries on her back - Family & Social History Family History: Mother: Renal Disease/Failure, Father: Diabetes, Type 2, Brother: Diabetes, Type 2, Other family: Asthma (father), CVA/TIA (mother) Family History Comment/Other: neg for CRC Living arrangement: At home (per the pt) Living Situation: Alone Social History Notes: The patient lives in [place], [place]. She says she lives alone and previously lived with her who a few years ago, they were for 50 years. She is independent in all her activities of daily living. She claims that she still drives. She is Chinese. She is a orthodoxy. She is a non-smoker. She drinks extremely rare alcohol. She denies any other illicit drug use. - Substance History Use: Uses substance without health or social issues: NONE - POLST Patient has POLST: Yes POLST Status: Full Code Meds/Allgy - Home Medications Home Medications: Ambulatory Orders Medication Instructions Recorded Confirmed Valsartan [Diovan] 80 mg PO QPM 11/13/17 08/30/22 Cholecalciferol [Vitamin D3] 2,000 units PO DAILY 03/12/18 01/11/22 Nitroglycerin [Nitrostat] 0.4 mg PO Q5M PRN 03/12/18 01/11/22 Metoprolol Tartrate 12.5 mg PO QPM 05/14/20 01/11/22 Acetaminophen [Acetaminophen Extra 500 mg PO QID 10 Days #40 tablet 01/08/22 01/11/22 Strength] dexAMETHasone [Decadron] 4 mg PO DAILY 6 Days #6 tablet 01/08/22 01/11/22 Amitriptyline [Elavil] 10 mg PO QPM 01/11/22 Aspirin [Aspirin EC] 81 mg PO DAILY 01/11/22 Atorvastatin Calcium 40 mg PO QPM 01/11/22 Cyanocobalamin (Vitamin B-12) 1,000 mcg PO DAILY 01/11/22 [Vitamin B-12] Meloxicam [Mobic] 7.5 mg PO DAILY 01/11/22 metFORMIN [Glucophage] 500 mg PO BIDWM 01/11/22 methIMAzole [Methimazole] 2.5 mg PO DAILY 01/11/22 - Allergies Allergies/Adverse Reactions: Allergies Allergy/AdvReac Type Severity Reaction Status Date / Time meperidine HCl * Allergy Severe Respiratory Verified 03/26/22 11:08 [From Demerol] pain meds Allergy Intermediate Nausea Uncoded 03/26/22 11:08 preservatives in lidocaine Allergy Intermediate Respiratory Uncoded 03/26/22 11:08 preservatives in medications Allergy Intermediate Respiratory Uncoded 03/26/22 11:08 Review of Systems - Ears, Nose & Throat Ears, Nose & Throat: reports: Hearing loss, Hearing aids - Cardiovascular Cariovascular: reports: Chest pain, Lightheadedness, Exertional dyspnea - Respiratory Respiratory: reports: SOB at rest, SOB with exertion - Neurological Neurological: reports: Memory problems - All Other Systems All Other Systems: reports: Reviewed and negative Exam - Vital Signs Reviewed Vital Signs: Yes Vital Signs: Vital Signs x48h Temp Pulse Pulse Resp BP BP Pulse Ox 08/29/22 18:05 36.5 C 72 22 157/71 H 95 08/29/22 17:18 83 27 H 131/87 H 93 08/29/22 16:30 83 21 114/61 98 08/29/22 16:00 82 28 H 128/100 H 99 08/29/22 15:30 74 25 H 146/56 H 96 08/29/22 15:00 78 17 146/56 H 98 08/29/22 14:26 36 C L 91 16 138/79 H 96 - Physical Exam General Appearance: positive: No acute distress, Alert Eyes Bilateral: positive: Normal inspection, EOMI ENT: positive: ENT inspection nml, No signs of dehydration Neck: positive: Nml inspection, No JVD Respiratory: positive: No respiratory distress, Rhonchi Cardiovascular: positive: Other (Extremely distant S1 and S2 heart sounds, 2/6 honking systolic murmur heard at the left lower sternal border and apex) Abdomen: positive: Non-tender, Nml bowel sounds, No distention Skin: positive: Warm, Dry Extremities: positive: Non-tender, No pedal edema Neurologic/Psychiatric: positive: Oriented x3, Other (Poor memory) Conclusion/Plan - Problem List (1) Acute non-ST elevation myocardial infarction (NSTEMI) Conclusion/Plan: The details of her chest pain are extremely vague, she cannot provide a clear history Recommendations from her Cardiology group are for just medical management, no further coronary interventions Plan: Start Nitropaste topically and sublingual nitroglycerin can be used as needed if recurrence of chest pain Will give 2 to 3 days of therapeutic Lovenox treatment, 70 mg SQ twice daily Continue with daily baby aspirin Will add Plavix 75 mg daily to her regimen, which she will go home with, plan for at least a month Continue with her beta-fouzia, and I will increase the dose to achieve a target resting HR of 60 Monitor on telemetry Give Lipitor 80 mg now stat then check fasting lipid panel and treat cholesterol per medical guidelines; possibly we will be restarting her Lipitor dose of 40 mg Follow her troponins until they peak, which will help size the extent of the MD Obtain Echocardiogram to know her LVEF and adjust meds further (However today is night and we have no explosive ordnance technician until Friday morning) After the first 24 hours, we will order PT and OT and to be OOB. (2) Pulmonary edema Conclusion/Plan: Her pulm edema was caused by this acute MD, on top of having significant aortic stenosis and possibly already having systolic heart failure from prior MD(s). Plan: IV twice daily diuretics will be ordered. Follow I's and O's and daily weights. Follow BMP and magnesium daily and BNP for several days Obtain Echo Qualifiers: Chronicity: acute Qualified Code(s): J81.0 - Acute pulmonary edema (3) Aortic stenosis Conclusion/Plan: The last Echocardiogram she had done here is approximately 2 years old. At that time she had significant AMS and a normal LVEF, Plan: Will obtain an Echocardiogram to evaluate LVEF post MD as well as severe Qualifiers: Cardiac valve disease etiology: etiology unspecified Qualified Code(s): I35.0 - Nonrheumatic aortic (valve) stenosis (4) Hx of CABG Conclusion/Plan: According to the angio from [facility] cardiology group, she has both CABGs and stents. Plan: No more coronary interventions are planned, only medical management according to the discussion of our ED provider with her Communications Writer's covering flatbed truck driver (5) DM type 2 (diabetes mellitus, type 2) Conclusion/Plan: Her medication list shows she is on metformin only. Plan: Will obtain A1c with morning labs Will order diabetic diet, hypoglycemia protocol, fingerstick checks and ss insulin coverage (6) CKD (chronic kidney disease) Conclusion/Plan: In reviewing this EMR, she has had creatinines between 1.2 and 1.5 for the last 2 years. Today creatinine is 1.5 Plan: Avoid nephrotoxins. Follow BMP daily (7) Leg cramps Conclusion/Plan: The patient started having severe leg cramps after arriving from the ER (where she receivved iv Lasix), and after I met her. This is likely from hypomagnesemia caused by diuresis Plan: Will give magnesium rider x1 stat Check morning magnesium levels We will also order morphine IV as needed for pain or dyspnea (8) Dementia Conclusion/Plan: She is a poor historian however she apparently manages to live independently Plan: Will have social work evaluate her for safe discharge plan after she is seen by PT and OT which will be after treating her pulmonary edema - Lab Results Lab results reviewed: Yes Fish Bones: 08/30/22 05:22 08/30/22 05:22 - Diagnostic Imaging Results Diagnostic Imaging Results: positive: Final report reviewed - Other Other Results/Comments: Attestation: The patient is expected to be discharged or transferred to another facility within 96 hours: Yes.
[2022-08-29] MEDS ORDERED: MAGNESIUM SULFATE 2 GRAM 2 GM/50 ML BAG IV ONE (19:09)
[2022-08-29] MEDS ORDERED: MORPHINE 2 MG/ML CARPUJECT IVP STA (19:23)
[2022-08-29] MEDS ORDERED: NITROGLYCERIN SL 0.4 MG TABLET SL PRN (19:26)
[2022-08-29] MEDS: SODIUM CHLORIDE FLUSH 0.9% 10 ML SYRINGE IVP PRN (19:37)
[2022-08-29] MEDS: FAMOTIDINE 20 MG TABLET PO SCH (21:08)
[2022-08-29] MEDS: METOPROLOL SUCCINATE 25 MG TABLET PO SCH (21:08)
[2022-08-29] MEDS: MORPHINE 2 MG/ML CARPUJECT IVP PRN (23:56)
[2022-08-30] MEDS: SODIUM CHLORIDE FLUSH 0.9% 10 ML SYRINGE IVP SCH ×4 (00:05→23:50)
[2022-08-30] MEDS ORDERED: MORPHINE 10 MG/ML VIAL IVP STA (00:45)
[2022-08-30] MEDS: ONDANSETRON 4 MG/2 ML VIAL IVP PRN ×2 (03:11→09:41)
[2022-08-30] MEDS: MORPHINE 2 MG/ML CARPUJECT IVP PRN (03:38)
[2022-08-30] MEDS: NITROGLYCERIN 2% PASTE TOP SCH ×3 (03:50→17:29)
[2022-08-30 05:30] LABS: BASOPHILS # (AUTO) 0.1 10^3/uL (0.0-0.1); BASOPHILS % (AUTO) 0.5 %; EOSINOPHILS % (AUTO) 0.1 %; HCT - HEMATOCRIT 39.4 % (37.0-47.0); HGB - HEMOGLOBIN 12.6 g/dL (12.0-16.0); LYMPHOCYTES # (AUTO) 0.8 10^3/uL (1.5-3.5); LYMPHOCYTES % (AUTO) 5.6 %; MEAN CORPUSCULAR HEMOGLOBIN 29.5 pg (27.0-31.0); MEAN CORPUSCULAR VOLUME 92.3 fL (81.0-99.0); MEAN PLATELET VOLUME 11.5 fL (7.9-10.8); MONOCYTES # (AUTO) 0.7 10^3/uL (0.0-1.0); MONOCYTES % (AUTO) 4.9 %; NEUTROPHILS # (AUTO) 12.6 10^3/uL (1.5-6.6); NEUTROPHILS % (AUTO) 88.5 %; PLT - PLATELET COUNT 190 10^3/uL (130-450); RED BLOOD COUNT 4.27 10^6/uL (4.20-5.40); RED CELL DISTRIBUTION WIDTH 13.1 % (12.0-15.0); WHITE BLOOD COUNT 14.2 x10^3/uL (4.8-10.8)
[2022-08-30 05:40] LABS: CALCIUM 9.3 mg/dL (8.5-10.3); CREATININE 1.5 mg/dL (0.4-1.0); POTASSIUM 4.6 mmol/L (3.5-5.0)
[2022-08-30] MEDS: FUROSEMIDE 40 MG/4 ML VIAL IVP SCH ×2 (06:37→14:02)
[2022-08-30] MEDS: SODIUM CHLORIDE FLUSH 0.9% 10 ML SYRINGE IVP PRN ×2 (06:37→20:00)
[2022-08-30] MEDS: metFORMIN 500 MG TABLET PO SCH ×2 (08:03→17:08)
[2022-08-30] MEDS: METOPROLOL SUCCINATE 25 MG TABLET PO SCH ×2 (08:03→21:04)
[2022-08-30] MEDS: FAMOTIDINE 20 MG TABLET PO SCH ×2 (09:00→21:04)
[2022-08-30] MEDS: ASPIRIN EC 81 MG TABLET PO SCH (09:33)
[2022-08-30] MEDS: CLOPIDOGREL 75 MG TABLET PO SCH (09:49)
[2022-08-30] MEDS ORDERED: MORPHINE 2 MG/ML CARPUJECT IVP PRN (10:44)
[2022-08-30] MEDS ORDERED: ENOXAPARIN 60 MG/0.6 ML SYRINGE SUBQ SCH (11:00)
[2022-08-30] MEDS: ENOXAPARIN 80 MG/0.8 ML SYRINGE SUBQ SCH ×3 (11:10→21:04)
--- NOTE | 2022-08-30 16:56 | PHARMACY PROGRESS NOTE ---
- Best Possible Medication History Admit Date and Time: 08/29/22 1718 Processed by: Pharmacy Medication History completed: Yes Patient Interview: Pt unable to participate Secondary Source(s): Facility MAR as ONLY source (PT UNABLE TO PARTICIPATE DUE TO COGNITION. FRIEND AT BEDSIDE GAVE ANASTASIYA JOHNS'S PHONE NUMBER AND MED WAS RECONCILED AGAINST FACILITY'S MAR.) As the person ultimately responsible for medication therapy, providers are able to order a medication from an existing home medication list in [facility] via the "Reconcile Routine" prior to Confirmation of that medication by administrative support manager. Such practice is discouraged except when the physician, in their clinical judgment, deems that a medical need exists for a medication without regard to previous use.
--- NOTE | 2022-08-30 17:36 | PROVIDER PROGRESS NOTE ---
Assessment/Plan - Problem List (1) Acute non-ST elevation myocardial infarction (NSTEMI) Assessment/Plan: She presented with shortness of breath and chest pain and her troponins peaked at 1900. Plan: Continue another day today of therapeutic Lovenox twice daily Continue with aspirin, new Plavix, beta-fouzia, Nitropaste(which she has refused today) and sublingual nitro as needed An Echo has been ordered (But today is Friday afternoon and we only have an blending technician here Friday through ) (2) Confusion Assessment/Plan: After dinner the patient became confused, thought she was in "study" and wanted to sign out AMA. She did not think she was in the hospital but in some "building extension". Several staff members and myself were there to explain where she is and she states that she did not believe us. A call was put out to Etta who is listed as her personal lines advisor. They spoke and in the end land told her to stay where she is, would not be picking her up. In a separate phone call to nursing, Etta said that this patient has "trashed in ER bay at [facility] in the past" She is probably Plan: Haldol iv ws ordered as needed We are awaiting her reconciled medication list to be done by pharmacy, to see if she is on antipsychotic meds (3) Dementia Assessment/Plan: She is only oriented to self, not to time or place. Despite reorientation, she cannot remember how she got here yesterday, any of her past history. Plan: Will contact [facility] to see if there is a history of poor memory or dementia with behavioral disturbances. (4) Pulmonary edema Qualifiers: Chronicity: acute Qualified Code(s): J81.0 - Acute pulmonary edema Assessment/Plan: Patient would not let me examine her lungs today. Her oral mucosa however is very dry and she is not dyspneic with speaking Plan: Will finish Lasix after today. We are adjusting her cardiac meds based on her acute CT and awaiting the reconciled med list to be done by pharmacy (5) Aortic stenosis Qualifiers: Cardiac valve disease etiology: etiology unspecified Qualified Code(s): I35.0 - Nonrheumatic aortic (valve) stenosis Assessment/Plan: As per history. She said she refused to undergo the TAVR because "she has had enough surgeries". (6) Hx of CABG Assessment/Plan: As per Hx Plan: We will continue her antiplatelet agent her and cardiac meds are being adjusted based on the CT and once her medication list is reconciled by pharmacy (7) DM type 2 (diabetes mellitus, type 2) Assessment/Plan: She is on metformin and glipizide at home. Metformin was started by the admitting doctor Plan: Will order a diabetic diet, fingerstick glucose checks were ordered with sliding scale insulin. I doubt she will allow this since the fingersticks might seem too aggressive at this time since she is agitated and refusing care. (8) CKD (chronic kidney disease) Assessment/Plan: In reviewing her records, her creatinine runs 1.3-1.7. It is in that range currently Plan: Avoid nephrotoxins. Follow BMP daily. Will adjust her Lasix depending on clinical status Will resume her cardiovascular meds when the list is reconciled by pharmacy - Current Meds Current Meds: Current Medications Generic Name Dose Route Start Last Admin Trade Name Frerox PRN Reason Stop Dose Admin Aspirin 81 mg 08/30/22 09:00 08/30/22 09:33 Aspirin Ec 81 Mg Tablet PO 81 mg DAILY GEOFFREY Administration Clopidogrel Bisulfate 75 mg 08/30/22 09:00 08/30/22 09:49 Clopidogrel 75 Mg Tablet PO 75 mg DAILY GEOFFREY Administration Enoxaparin Sodium 70 mg 08/30/22 11:30 08/30/22 11:27 Enoxaparin 80 Mg/0.8 Ml Syringe SUBQ 70 mg BID GEOFFREY Administration Famotidine 20 mg 08/29/22 21:00 08/30/22 09:00 Famotidine 20 Mg Tablet PO 20 mg BID GEOFFREY Administration Furosemide 40 mg 08/30/22 06:00 08/30/22 14:02 Furosemide 40 Mg/4 Ml Vial IVP 40 mg BIDDIURETIC GEOFFREY Administration Metformin HCl 500 mg 08/30/22 08:00 08/30/22 17:08 Metformin 500 Mg Tablet PO 500 mg BIDWM GEOFFREY Administration Metoprolol Succinate 12.5 mg 08/29/22 21:00 08/30/22 08:03 Metoprolol Succinate 25 Mg Tablet PO 12.5 mg BID GEOFFREY Administration Nitroglycerin 0.4 mg 08/29/22 19:26 08/30/22 00:24 Nitroglycerin Sl 0.4 Mg Tablet SL 0.4 mg Q5MIN PRN Administration Chest Pain Nitroglycerin 0.5 inch 08/30/22 02:00 08/30/22 17:29 Nitroglycerin 2% Paste TOP 0.5 inch Q8H GEOFFREY Administration Ondansetron HCl 4 mg 08/29/22 17:18 08/30/22 09:41 Ondansetron 4 Mg/2 Ml Vial IVP 4 mg Q6HR PRN Administration Nausea / Vomiting Sodium Chloride 10 ml 08/29/22 17:18 08/30/22 06:37 Sodium Chloride Flush 0.9% 10 Ml Syringe IVP 10 ml PRN PRN Administration NEEDED PER PROVIDER ORDERS Sodium Chloride 10 ml 08/30/22 01:00 08/30/22 17:08 Sodium Chloride Flush 0.9% 10 Ml Syringe IVP 10 ml 0100,0900,1700 GEOFFREY Administration - Lab Result Fish Bone Diagrams: 08/31/22 04:24 08/31/22 04:24 - Additional Planning My Orders: My Active Orders 08/29/22 17:18 Activity Orders [RC] Q2HR IO [RC] IOSHIFT Initiate Bowel Care Protocol [RC] .protocol Initiate Line Care Protocol [RC] QSHIFT Initiate Personal Care Protoco [RC] .protocol Oxygen Therapy [RC] .PRN Telemetry- [RC] Q4HR Vital Signs [RC] Q4HR Acetaminophen [Tylenol] 650 mg PO Q4HR PRN Ondansetron Inj [Zofran Inj] 4 mg IVP Q6HR PRN Sodium Chloride Flush 0.9% [Normal Saline Flush 0.9%] 10 ml IVP PRN PRN Code Status [OTHERS] Routine Condition of Patient [OTHERS] Routine DVT Prophylaxis [OTHERS] Routine 08/29/22 17:20 Daily Weight [RC] 0600 08/29/22 17:21 IV Insert [RC] .ONCE 08/29/22 19:26 Nitroglycerin [Nitrostat] 0.4 mg SL Q5MIN PRN 08/29/22 21:00 Famotidine [Pepcid] 20 mg PO BID Metoprolol Succinate [Toprol Xl] 12.5 mg PO BID 08/30/22 Evaluate and Treat OT [OT] Routine Evaluate and Treat PT [PT] Routine 08/30/22 01:00 Sodium Chloride Flush 0.9% [Normal Saline Flush 0.9%] 10 ml IVP 0100,0900,1700 08/30/22 02:00 Nitroglycerin 2% Paste (Pkt) [Nitro-Bid (Pkt)] 0.5 inch TOP Q8H 08/30/22 06:00 FUROSEMIDE INJ 40mg VIAL [LASIX INJ 40 mg VIAL] 40 mg IVP BIDDIURETIC 08/30/22 08:00 metFORMIN [Glucophage] 500 mg PO BIDWM 08/30/22 09:00 Aspirin EC [Ecotrin] 81 mg PO DAILY Clopidogrel [Plavix] 75 mg PO DAILY 08/30/22 10:44 Morphine Inj (Carpuject) [Morphine (Carpuject)] 2 mg IVP Q6HR PRN 08/30/22 11:30 Enoxaparin [Lovenox] 70 mg SUBQ BID 08/30/22 17:31 Gabapentin [Neurontin] 300 mg PO TID PRN 08/30/22 21:00 Atorvastatin [Lipitor] 40 mg PO QPM 08/31/22 05:00 BMP - BASIC METABOLIC PANEL [CHEM] DAILYLAB BNP - B-NATRIURETIC PEPTIDE [IAI] DAILYLAB CBC - COMP BLD CT W/AUTO DIFF [HEME] DAILYLAB LIPID Panel [CHEM] DAILYLAB 09/01/22 05:00 BMP - BASIC METABOLIC PANEL [CHEM] DAILYLAB CBC - COMP BLD CT W/AUTO DIFF [HEME] DAILYLAB 09/02/22 05:00 BMP - BASIC METABOLIC PANEL [CHEM] DAILYLAB CBC - COMP BLD CT W/AUTO DIFF [HEME] DAILYLAB 09/03/22 07:00 Echo Transthoracic Complete [ECHO] Stat Subjective - Subjective Patient Reports: Other (She is describing paranoid feelings that we have her in a research study, she is oriented only to self not place or time and is being threatening to staff. She is demanding to be signed out, wants to sign out AMA.) Objective Vital Signs: Vital Signs - 24 hr 08/29/22 08/29/22 08/29/22 18:05 19:15 19:20 Temperature 36.5 C Heart Rate Heart Rate [ 72 Brachial] Respiratory 22 24 24 Rate Blood Pressure Blood Pressure 157/71 H [Right Brachial artery] O2 Saturation 95 85 L 94 If not protocol : Oxygen Flow, liters/minute 12/29/22 12/29/22 12/30/22 21:13 21:19 00:24 Temperature 36.3 C L Heart Rate 128 H Heart Rate [ 64 Brachial] Respiratory 18 18 Rate Blood Pressure 128/73 Blood Pressure 153/54 H [Right Brachial artery] O2 Saturation 95 96 If not protocol 2 : Oxygen Flow, liters/minute 08/30/22 08/30/22 08/30/22 00:26 00:44 01:36 Temperature Heart Rate Heart Rate [ 128 H 111 H 99 Brachial] Respiratory 26 H Rate Blood Pressure Blood Pressure 128/73 124/85 H 152/95 H [Right Brachial artery] O2 Saturation 97 95 95 If not protocol 2 2 2 : Oxygen Flow, liters/minute 08/30/22 08/30/22 08/30/22 06:38 07:50 11:55 Temperature 36.5 C 36.4 C L Heart Rate Heart Rate [ 65 76 59 L Brachial] Respiratory 18 20 18 Rate Blood Pressure Blood Pressure 126/75 148/71 H 104/77 [Right Brachial artery] O2 Saturation 92 95 98 If not protocol : Oxygen Flow, liters/minute 08/30/22 15:40 Temperature 36.5 C Heart Rate Heart Rate [ 55 L Brachial] Respiratory 18 Rate Blood Pressure Blood Pressure 112/61 [Right Brachial artery] O2 Saturation 97 If not protocol : Oxygen Flow, liters/minute Oxygen O2 Source Room air I&O (Last 24 Hrs): Intake and Output Totals x24h 08/28/22 08/29/22 08/30/22 23:59 23:59 23:59 Intake Total 345 240 Output Total 1700 1250 Balance -1355 -1010 General: Alert, Moderate distress (From agitation) HEENT: Other (dry oral mucosa) Neck: Supple, No JVD Neuro: Alert, Other (Oriented only to self, not to place or time. She is behaving in a paranoid fashion and is agitated.) Cardiovascular: Other (She would not let me examine her) Respiratory: Other (She would not let me examine her) Abdomen: Other (She would not let me examine her) Extremities: No clubbing, No edema - Results Results: Laboratory Results WBC 14.2 x10^3/uL (4.8-10.8) H 08/30/22 05:22 RBC 4.27 10^6/uL (4.20-5.40) 08/30/22 05:22 Hgb 12.6 g/dL (12.0-16.0) 08/30/22 05:22 Hct 39.4 % (37.0-47.0) 08/30/22 05:22 MCV 92.3 fL (81.0-99.0) 08/30/22 05:22 MCH 29.5 pg (27.0-31.0) 08/30/22 05:22 MCHC 32.0 g/dL (32.0-36.0) 08/30/22 05:22 RDW 13.1 % (12.0-15.0) 08/30/22 05:22 Plt Count 190 10^3/uL (130-450) 08/30/22 05:22 MPV 11.5 fL (7.9-10.8) H 08/30/22 05:22 Neut # (Auto) 12.6 10^3/uL (1.5-6.6) H 08/30/22 05:22 Lymph # (Auto) 0.8 10^3/uL (1.5-3.5) L 08/30/22 05:22 [place] # (Auto) 0.7 10^3/uL (0.0-1.0) 08/30/22 05:22 Eos # (Auto) 0.0 10^3/uL (0.0-0.7) 08/30/22 05:22 Baso # (Auto) 0.1 10^3/uL (0.0-0.1) 08/30/22 05:22 Absolute Nucleated RBC 0.00 x10^3/uL 08/30/22 05:22 Nucleated RBC % 0.0 /100WBC 08/30/22 05:22 Sodium 137 mmol/L (135-145) 08/30/22 05:22 Potassium 4.6 mmol/L (3.5-5.0) 08/30/22 05:22 Chloride 104 mmol/L (101-111) 08/30/22 05:22 Carbon Dioxide 20 mmol/L (21-32) L 08/30/22 05:22 Anion Gap 13.0 (6-13) 08/30/22 05:22 BUN 32 mg/dL (6-20) H 08/30/22 05:22 Creatinine 1.5 mg/dL (0.4-1.0) H 08/30/22 05:22 Estimated GFR (MDRD) 33 (>89) L 08/30/22 05:22 Glucose 245 mg/dL (70-100) H 08/30/22 05:22 Calcium 9.3 mg/dL (8.5-10.3) 08/30/22 05:22 Magnesium 2.0 mg/dL (1.7-2.8) 08/30/22 05:22 Total Bilirubin 0.8 mg/dL (0.2-1.0) 08/29/22 14:45 AST 37 IU/L (10-42) 08/29/22 14:45 ALT 22 IU/L (10-60) 08/29/22 14:45 Alkaline Phosphatase 92 IU/L (42-121) 08/29/22 14:45 Troponin I High Sens 1463.9 ng/L (2.3-14.8) H* 08/30/22 05:22 B-Natriuretic Peptide 1985 pg/mL (5-100) H 08/30/22 05:22 Total Protein 7.2 g/dL (6.7-8.2) 08/29/22 14:45 Albumin 4.2 g/dL (3.2-5.5) 08/29/22 14:45 Globulin 3.0 g/dL (2.1-4.2) 08/29/22 14:45 Albumin/Globulin Ratio 1.4 (1.0-2.2) 08/29/22 14:45 Lipase 44 U/L (22-51) 08/29/22 14:45 Nasal Adenovirus (PCR) NOT DETECTED 08/29/22 06:05 Nasal B. parapertussis DNA (PCR) NOT DETECTED 08/29/22 06:05 Nasal Coronavir 229E PCR NOT DETECTED 08/29/22 06:05 Nasal Coronavir HKU1 PCR NOT DETECTED 08/29/22 06:05 Nasal Coronavir NL63 PCR NOT DETECTED 08/29/22 06:05 Nasal Coronavir OC43 PCR NOT DETECTED 08/29/22 06:05 Nasal Enterovir/Rhinovir PCR NOT DETECTED 08/29/22 06:05 Nasal Influenza B PCR NOT DETECTED 08/29/22 06:05 Nasal Influenza A PCR NOT DETECTED 08/29/22 06:05 Nasal Parainfluen 1 PCR NOT DETECTED 08/29/22 06:05 Nasal Parainfluen 2 PCR NOT DETECTED 08/29/22 06:05 Nasal Parainfluen 3 PCR NOT DETECTED 08/29/22 06:05 Nasal Parainfluen 4 PCR NOT DETECTED 08/29/22 06:05 Nasal RSV (PCR) NOT DETECTED 08/29/22 06:05 Nasal B.pertussis DNA PCR NOT DETECTED 08/29/22 06:05 Nasal C.pneumoniae (PCR) NOT DETECTED 08/29/22 06:05 Iván Human Metapneumo PCR NOT DETECTED 08/29/22 06:05 Nasal M.pneumoniae (PCR) NOT DETECTED 08/29/22 06:05 Nasal SARS-CoV-2 (PCR) NOT DETECTED 08/29/22 06:05 - Procedures Procedures: Procedures CONTROL BLEEDING IN GASTROINTESTINAL TRACT, ENDO (03/12/18) EXCISION OF STOMACH, ENDO, DIAGN (03/12/18) EXCISION OF STOMACH, PYLORUS, ENDO, DIAGN (03/12/18) REPOSITION LEFT UPPER EYELID, EXTERNAL APPROACH (10/04/15) REPOSITION RIGHT UPPER EYELID, EXTERNAL APPROACH (10/04/15)
[2022-08-30] MEDS ORDERED: HALOPERIDOL 5 MG/ML VIAL IVP ONE (18:35)
[2022-08-30] MEDS: ATORVASTATIN 40 MG TABLET PO SCH (21:04)
[2022-08-30] MEDS: ACETAMINOPHEN 325 MG TABLET PO PRN (23:50)
[2022-08-31] MEDS: NITROGLYCERIN 2% PASTE TOP SCH ×3 (02:11→17:47)
[2022-08-31 04:35] LABS: BASOPHILS % (AUTO) 0.3 %; EOSINOPHILS # (AUTO) 0.1 10^3/uL (0.0-0.7); EOSINOPHILS % (AUTO) 0.8 %; HCT - HEMATOCRIT 37.6 % (37.0-47.0); HGB - HEMOGLOBIN 11.8 g/dL (12.0-16.0); LYMPHOCYTES # (AUTO) 1.8 10^3/uL (1.5-3.5); MEAN CORPUSCULAR HEMOGLOBIN 29.5 pg (27.0-31.0); MEAN CORPUSCULAR HGB CONC 31.4 g/dL (32.0-36.0); MEAN PLATELET VOLUME 11.5 fL (7.9-10.8); MONOCYTES % (AUTO) 8.7 %; NEUTROPHILS # (AUTO) 8.9 10^3/uL (1.5-6.6); NEUTROPHILS % (AUTO) 74.9 %; PLT - PLATELET COUNT 186 10^3/uL (130-450); RED CELL DISTRIBUTION WIDTH 13.1 % (12.0-15.0); WHITE BLOOD COUNT 11.9 x10^3/uL (4.8-10.8)
[2022-08-31 04:54] LABS: CHOL/HDL RATIO 2.9 (<4.4); CHOLESTEROL 140 mg/dL; HDL CHOLESTEROL 48 mg/dL; LDL CHOLESTEROL,CALCULATED 51 mg/dL; LDL/HDL RATIO 1.1 (<4.4); TRIGLYCERIDES 207 mg/dL; VLDL CHOLESTEROL 41 mg/dL
[2022-08-31 05:08] LABS: CREATININE 2.4 mg/dL (0.4-1.0); POTASSIUM 4.3 mmol/L (3.5-5.0)
[2022-08-31] MEDS: FUROSEMIDE 40 MG/4 ML VIAL IVP SCH (05:53)
[2022-08-31] MEDS: FAMOTIDINE 20 MG TABLET PO SCH ×3 (08:22→20:27)
[2022-08-31] MEDS: ASPIRIN EC 81 MG TABLET PO SCH ×2 (08:22→13:24)
[2022-08-31] MEDS: METOPROLOL SUCCINATE 25 MG TABLET PO SCH ×3 (08:23→20:27)
[2022-08-31] MEDS: CLOPIDOGREL 75 MG TABLET PO SCH ×2 (08:29→13:25)
[2022-08-31] MEDS: metFORMIN 500 MG TABLET PO SCH (08:29)
[2022-08-31] MEDS: ACETAMINOPHEN 325 MG TABLET PO PRN ×2 (08:30→19:16)
[2022-08-31] MEDS: ENOXAPARIN 80 MG/0.8 ML SYRINGE SUBQ SCH ×3 (08:30→20:32)
[2022-08-31] MEDS: SODIUM CHLORIDE FLUSH 0.9% 10 ML SYRINGE IVP SCH ×2 (08:31→17:49)
[2022-08-31] MEDS ORDERED: PHENAZOPYRIDINE 100 MG TABLET PO PRN (10:24)
[2022-08-31] MEDS ORDERED: HALOPERIDOL 5 MG/ML VIAL IVP PRN (12:45)
[2022-08-31] MEDS: methIMAzole 5 MG TABLET PO SCH (13:27)
--- NOTE | 2022-08-31 14:28 | PROVIDER PROGRESS NOTE ---
Assessment/Plan - Problem List (1) Agitation requiring sedation protocol Assessment/Plan: Yesterday evening the patient became confused, thought she was in "study" and wanted to sign out AMA. She did not think she was in the hospital but in some "building extension". Several staff members and myself were there to explain where she is and she states that she did not believe us. A call was put out to Etta who is listed as her contact center consultant. They spoke and in the end Bettye told her to stay where she is, that she would not be picking her up. In a separate phone call to nursing yesterdady, Etta said that this patient has "trashed an ER bay at [facility] in the past" Today her reconciled medication list was finished by pharmacy, and she is on 2 antidepressant meds, which have been resumed. The patient refused to take all her meds today, suspicious of who prescribed them. At midday 1 nurse was able to convince her to swallow all her meds This afternoon, her son Magdiel De Jesus (DPOA) called and we spoke and I brought him up-to-date. The son confirmed that the patient is sometimes difficult to deal with, she is estranged from both Magdiel and the patient's daughter, Magdiel sister. Etta tries to help a lot and Etta has reported to the son Magdiel that the patient's memory is worsening slowly every year Plan: Haldol iv was been ordered to use iv q6h as needed for agitation. [facility] was called, and our UM discussed with their staff regarding this event. [facility] will need to send out a staff member to reassess her before she is allowed to return and this will not happen until Sunday 09/03 (today is Friday 08/31, tomorrow is Sun and is 09/01 a holiday, and 09/02 is also an official holiday). (2) Acute on CKD (chronic kidney disease) Assessment/Plan: In reviewing her records, her creatinine runs 1.3-1.7. After starting Lasix IV twice daily, her creatinine has risen to 2.5 today and she has dry mucosa when she speaks. She would not let me get close to her to examine her lungs. Plan: Will stop Lasix Stop Metformin Avoid nephrotoxins. Follow BMP daily. (3)Poor memory Assessment/Plan: She is only oriented to self, not to time or place, yesterday and today. De spite reorientation, she cannot remember how she got here, or any of her past history. Today I spoke to her son Magdiel De Jesus (DPOA). The son said that Etta has reported to Magdiel that the patient's memory is worsening slowly every year. Magdiel does not think she has ever been given an official diagnosis of Dementia however. Plan: Will resume her psych meds today. [facility] will need to send out a staff member to reassess her before she is allowed to return. I informed Magdiel of that by phone today. (4) Acute non-ST elevation myocardial infarction (NSTEMI) Assessment/Plan: She presented with shortness of breath and chest pain and her troponins peaked at 1900. Plan: Will stop therapeutic Lovenox twice daily dosing today. Patient was refusing it anyway saying that we were "giving her needlesticks for no good reason". Continue with aspirin, new Plavix, beta-fouzia, and sublingual nitro as needed. Nitropaste was refused. Will start Imdur. An Echo has been ordered (But today is Sat afternoon and we only have an tire and lube technician here Friday through ) (5) Pulmonary edema Qualifiers: Chronicity: acute Qualified Code(s): J81.0 - Acute pulmonary edema Assessment/Plan: Patient would not let me examine her lungs yesterday or today. Her oral mucosa however is very dry and she is not dyspneic when speaking Plan: Will stop Lasix We are resuming and adjusting her cardiac meds (6) Aortic stenosis Qualifiers: Cardiac valve disease etiology: etiology unspecified Qualified Code(s): I35.0 - Nonrheumatic aortic (valve) stenosis Assessment/Plan: As per history. She said she refused to undergo the TAVR because "she has had enough surgeries". (7) Hx of CABG Assessment/Plan: As per Hx Plan: We will continue her antiplatelet agent her and cardiac meds are being adjusted (8) DM type 2 (diabetes mellitus, type 2) Assessment/Plan: She was on metformin and glipizide at home. Plan: We ordered a diabetic diet, fingerstick glucose checks and sliding scale insulin coverage. I doubt she will allow the fingerstick checks since she is agitated and suspicious of care. We will stop Metformin due to worsened creat today Will start glipizide - Current Meds Current Meds: Current Medications Generic Name Dose Route Start Last Admin Trade Name Freq PRN Reason Stop Dose Admin Acetaminophen 650 mg 08/29/22 17:18 08/31/22 08:30 Acetaminophen 325 Mg Tablet PO 650 mg Q4HR PRN Administration Pain 1 to 4, or Fever Aspirin 81 mg 08/30/22 09:00 08/31/22 13:24 Aspirin Ec 81 Mg Tablet PO 81 mg DAILY GEOFFREY Administration Atorvastatin Calcium 40 mg 08/30/22 21:00 08/30/22 21:04 Atorvastatin 40 Mg Tablet PO Not Given QPM GEOFFREY Clopidogrel Bisulfate 75 mg 08/30/22 09:00 08/31/22 13:25 Clopidogrel 75 Mg Tablet PO 75 mg DAILY GEOFFREY Administration Enoxaparin Sodium 70 mg 08/30/22 11:30 08/31/22 13:25 Enoxaparin 80 Mg/0.8 Ml Syringe SUBQ Not Given BID [facility] Famotidine 20 mg 08/29/22 21:00 08/31/22 13:25 Famotidine 20 Mg Tablet PO 20 mg BID GEOFFREY Administration Glipizide 2.5 mg 08/31/22 11:00 08/31/22 13:27 Glipizide Er 2.5 Mg Tablet PO 2.5 mg DAILY GEOFFREY Administration Methimazole 2.5 mg 08/31/22 11:00 08/31/22 13:27 Methimazole 5 Mg Tablet PO 2.5 mg DAILY GEOFFREY Administration Metoprolol Succinate 12.5 mg 08/29/22 21:00 08/31/22 13:28 Metoprolol Succinate 25 Mg Tablet PO 12.5 mg BID GEOFFREY Administration Nitroglycerin 0.4 mg 08/29/22 19:26 08/30/22 00:24 Nitroglycerin Sl 0.4 Mg Tablet SL 0.4 mg Q5MIN PRN Administration Chest Pain Nitroglycerin 0.5 inch 08/30/22 02:00 08/31/22 11:13 Nitroglycerin 2% Paste TOP Not Given Q8H GEOFFREY Ondansetron HCl 4 mg 08/29/22 17:18 08/30/22 09:41 Ondansetron 4 Mg/2 Ml Vial IVP 4 mg Q6HR PRN Administration Nausea / Vomiting Sodium Chloride 10 ml 08/29/22 17:18 08/30/22 20:00 Sodium Chloride Flush 0.9% 10 Ml Syringe IVP 10 ml PRN PRN Administration NEEDED PER PROVIDER ORDERS Sodium Chloride 10 ml 08/30/22 01:00 08/31/22 08:31 Sodium Chloride Flush 0.9% 10 Ml Syringe IVP 10 ml 0100,0900,1700 GEOFFREY Administration - Lab Result Fish Bone Diagrams: 08/31/22 04:24 08/31/22 04:24 - Additional Planning My Orders: My Active Orders 08/30/22 17:31 Gabapentin [Neurontin] 300 mg PO TID PRN 08/30/22 21:00 Atorvastatin [Lipitor] 40 mg PO QPM 08/31/22 UA w/ MICROSCOPIC, CULT IF [URIN] Urgent 08/31/22 10:24 Phenazopyridine [Pyridium] 100 mg PO TID PRN 08/31/22 11:00 glipiZIDE ER [Glucotrol Xl] 2.5 mg PO DAILY methIMAzole [Tapazole] 2.5 mg PO DAILY 08/31/22 12:45 Haloperidol Inj [Haldol Inj] 1 mg IVP Q6H PRN 08/31/22 21:00 Amitriptyline [Elavil] 10 mg PO QPM Mirtazapine [Remeron] 15 mg PO HS 09/01/22 05:00 BMP - BASIC METABOLIC PANEL [CHEM] DAILYLAB CBC - COMP BLD CT W/AUTO DIFF [HEME] DAILYLAB 09/01/22 09:00 Pantoprazole [Protonix] 40 mg PO DAILY 09/02/22 05:00 BMP - BASIC METABOLIC PANEL [CHEM] DAILYLAB CBC - COMP BLD CT W/AUTO DIFF [HEME] DAILYLAB 09/03/22 07:00 Echo Transthoracic Complete [ECHO] Stat Subjective - Subjective Nursing Reports: Other (Confusion, only oriented to self, demanding she can sign out AMA, is suspicious of all her medications, wants proof of what doctor ordered them.) Objective Vital Signs: Vital Signs - 24 hr 08/30/22 08/30/22 08/31/22 15:40 23:47 05:32 Temperature 36.5 C 36.3 C L 36.5 C Heart Rate [ 55 L 82 73 Brachial] Respiratory 18 18 18 Rate Blood Pressure 112/61 151/61 H 140/72 H [Right Brachial artery] O2 Saturation 97 95 95 08/31/22 08:15 Temperature 36.6 C Heart Rate [ 74 Brachial] Respiratory 18 Rate Blood Pressure 90/73 [Right Brachial artery] O2 Saturation 93 Oxygen O2 Source Room air I&O (Last 24 Hrs): Intake and Output Totals x24h 08/29/22 08/30/22 08/31/22 23:59 23:59 23:59 Intake Total 345 360 200 Output Total 1700 1350 Balance -1355 -990 200 General: Alert, Mild distress (from agitation) HEENT: Other (dry oral mucosa) Neck: Supple Neuro: Alert, Disoriented Cardiovascular: Regular rate (on telemetry) Respiratory: Other (She would not let me get close to her to examine her lungs) Abdomen: Other (No distension) Extremities: No edema - Results Results: Laboratory Results WBC 11.9 x10^3/uL (4.8-10.8) H 08/31/22 04:24 RBC 4.00 10^6/uL (4.20-5.40) L 08/31/22 04:24 Hgb 11.8 g/dL (12.0-16.0) L 08/31/22 04:24 Hct 37.6 % (37.0-47.0) 08/31/22 04:24 MCV 94.0 fL (81.0-99.0) 08/31/22 04:24 MCH 29.5 pg (27.0-31.0) 08/31/22 04:24 MCHC 31.4 g/dL (32.0-36.0) L 08/31/22 04:24 RDW 13.1 % (12.0-15.0) 08/31/22 04:24 Plt Count 186 10^3/uL (130-450) 08/31/22 04:24 MPV 11.5 fL (7.9-10.8) H 08/31/22 04:24 Neut # (Auto) 8.9 10^3/uL (1.5-6.6) H 08/31/22 04:24 Lymph # (Auto) 1.8 10^3/uL (1.5-3.5) 08/31/22 04:24 [place] # (Auto) 1.0 10^3/uL (0.0-1.0) 08/31/22 04:24 Eos # (Auto) 0.1 10^3/uL (0.0-0.7) 08/31/22 04:24 Baso # (Auto) 0.0 10^3/uL (0.0-0.1) 08/31/22 04:24 Absolute Nucleated RBC 0.00 x10^3/uL 08/31/22 04:24 Nucleated RBC % 0.0 /100WBC 08/31/22 04:24 Sodium 139 mmol/L (135-145) 08/31/22 04:24 Potassium 4.3 mmol/L (3.5-5.0) 08/31/22 04:24 Chloride 103 mmol/L (101-111) 08/31/22 04:24 Carbon Dioxide 24 mmol/L (21-32) 08/31/22 04:24 Anion Gap 12.0 (6-13) 08/31/22 04:24 BUN 45 mg/dL (6-20) H 08/31/22 04:24 Creatinine 2.4 mg/dL (0.4-1.0) H 08/31/22 04:24 Estimated GFR (MDRD) 19 (>89) L 08/31/22 04:24 Glucose 161 mg/dL (70-100) H 08/31/22 04:24 Calcium 9.0 mg/dL (8.5-10.3) 08/31/22 04:24 Magnesium 2.0 mg/dL (1.7-2.8) 08/30/22 05:22 Total Bilirubin 0.8 mg/dL (0.2-1.0) 08/29/22 14:45 AST 37 IU/L (10-42) 08/29/22 14:45 ALT 22 IU/L (10-60) 08/29/22 14:45 Alkaline Phosphatase 92 IU/L (42-121) 08/29/22 14:45 Troponin I High Sens 1463.9 ng/L (2.3-14.8) H* 08/30/22 05:22 B-Natriuretic Peptide 1817 pg/mL (5-100) H 08/31/22 04:24 Total Protein 7.2 g/dL (6.7-8.2) 08/29/22 14:45 Albumin 4.2 g/dL (3.2-5.5) 08/29/22 14:45 Globulin 3.0 g/dL (2.1-4.2) 08/29/22 14:45 Albumin/Globulin Ratio 1.4 (1.0-2.2) 08/29/22 14:45 Triglycerides 207 mg/dL (-149) H 08/31/22 04:24 Cholesterol 140 mg/dL (-199) 08/31/22 04:24 LDL Cholesterol, Calc 51 mg/dL (-129) 08/31/22 04:24 VLDL Cholesterol 41 mg/dL 08/31/22 04:24 HDL Cholesterol 48 mg/dL (60-) L 08/31/22 04:24 LDL/HDL Ratio 1.1 (<4.4) 08/31/22 04:24 Cholesterol/HDL Ratio 2.9 (<4.4) 08/31/22 04:24 Lipase 44 U/L (22-51) 08/29/22 14:45 Nasal Adenovirus (PCR) NOT DETECTED 08/29/22 06:05 Nasal B. parapertussis DNA (PCR) NOT DETECTED 08/29/22 06:05 Nasal Coronavir 229E PCR NOT DETECTED 08/29/22 06:05 Nasal Coronavir HKU1 PCR NOT DETECTED 08/29/22 06:05 Nasal Coronavir NL63 PCR NOT DETECTED 08/29/22 06:05 Nasal Coronavir OC43 PCR NOT DETECTED 08/29/22 06:05 Nasal Enterovir/Rhinovir PCR NOT DETECTED 08/29/22 06:05 Nasal Influenza B PCR NOT DETECTED 08/29/22 06:05 Nasal Influenza A PCR NOT DETECTED 08/29/22 06:05 Nasal Parainfluen 1 PCR NOT DETECTED 08/29/22 06:05 Nasal Parainfluen 2 PCR NOT DETECTED 08/29/22 06:05 Nasal Parainfluen 3 PCR NOT DETECTED 08/29/22 06:05 Nasal Parainfluen 4 PCR NOT DETECTED 08/29/22 06:05 Nasal RSV (PCR) NOT DETECTED 08/29/22 06:05 Nasal B.pertussis DNA PCR NOT DETECTED 08/29/22 06:05 Nasal C.pneumoniae (PCR) NOT DETECTED 08/29/22 06:05 Iván Human Metapneumo PCR NOT DETECTED 08/29/22 06:05 Nasal M.pneumoniae (PCR) NOT DETECTED 08/29/22 06:05 Nasal SARS-CoV-2 (PCR) NOT DETECTED 08/29/22 06:05 - Procedures Procedures: Procedures CONTROL BLEEDING IN GASTROINTESTINAL TRACT, ENDO (03/12/18) EXCISION OF STOMACH, ENDO, DIAGN (03/12/18) EXCISION OF STOMACH, PYLORUS, ENDO, DIAGN (03/12/18) REPOSITION LEFT UPPER EYELID, EXTERNAL APPROACH (10/04/15) REPOSITION RIGHT UPPER EYELID, EXTERNAL APPROACH (10/04/15)
[2022-08-31 18:06] LABS: BILIRUBIN,URINE NEGATIVE (NEGATIVE); GLUCOSE, URINE (UA) NEGATIVE (NEGATIVE); KETONES,URINE (UA) NEGATIVE (NEGATIVE); LEUKOCYTE ESTERASE, URINE MODERATE (NEGATIVE); NITRITE,URINE POSITIVE (NEGATIVE); OCCULT BLOOD,URINE TRACE-INTA (NEGATIVE); PH,URINE 5.5 PH (5.0-7.5); PROTEIN,URINE NEGATIVE (NEGATIVE); UROBILINOGEN,URINE 0.2 (NORMAL) E.U./dL (NORMAL)
[2022-08-31 18:07] LABS: CLARITY,URINE HAZY (CLEAR)
[2022-08-31 18:24] LABS: BACTERIA,URINE Moderate /HPF (None Seen); RBC,URINE 0-5 /HPF (0-5); SQUAMOUS EPITHELIAL CELL,UR FEW Squamous (<= Few); WBC CLUMPS,URINE PRESENT; WBC,URINE >25 /HPF (0-5)
[2022-08-31] MEDS: MIRTAZAPINE 15 MG TABLET PO SCH (20:27)
[2022-08-31] MEDS: AMITRIPTYLINE 10 MG TABLET PO SCH (20:28)
[2022-08-31] MEDS: cefTRIAXone 1 GM in SODIUM CHLORIDE 0.9% MINIBAG 100 ML IV SCH (20:28)
[2022-08-31] MEDS: ATORVASTATIN 40 MG TABLET PO SCH (20:28)
[2022-08-31] MEDS ORDERED: ATORVASTATIN 40 MG TABLET PO SCH (21:00)
[2022-09-01] MEDS: SODIUM CHLORIDE FLUSH 0.9% 10 ML SYRINGE IVP SCH ×5 (00:18→23:58)
[2022-09-01] MEDS: NITROGLYCERIN 2% PASTE TOP SCH ×2 (02:21→10:11)
[2022-09-01 05:17] LABS: BASOPHILS # (AUTO) 0.1 10^3/uL (0.0-0.1); BASOPHILS % (AUTO) 0.4 %; EOSINOPHILS # (AUTO) 0.3 10^3/uL (0.0-0.7); EOSINOPHILS % (AUTO) 2.4 %; HCT - HEMATOCRIT 37.9 % (37.0-47.0); HGB - HEMOGLOBIN 12.4 g/dL (12.0-16.0); LYMPHOCYTES # (AUTO) 1.8 10^3/uL (1.5-3.5); MEAN CORPUSCULAR HEMOGLOBIN 29.7 pg (27.0-31.0); MEAN CORPUSCULAR HGB CONC 32.7 g/dL (32.0-36.0); MEAN CORPUSCULAR VOLUME 90.9 fL (81.0-99.0); MEAN PLATELET VOLUME 11.4 fL (7.9-10.8); MONOCYTES # (AUTO) 1.2 10^3/uL (0.0-1.0); MONOCYTES % (AUTO) 10.4 %; NEUTROPHILS # (AUTO) 8.1 10^3/uL (1.5-6.6); NEUTROPHILS % (AUTO) 70.5 %; PLT - PLATELET COUNT 195 10^3/uL (130-450); RED BLOOD COUNT 4.17 10^6/uL (4.20-5.40); RED CELL DISTRIBUTION WIDTH 12.8 % (12.0-15.0); WHITE BLOOD COUNT 11.5 x10^3/uL (4.8-10.8)
[2022-09-01 05:24] LABS: CALCIUM 8.9 mg/dL (8.5-10.3); CREATININE 1.6 mg/dL (0.4-1.0); POTASSIUM 3.3 mmol/L (3.5-5.0)
[2022-09-01] MEDS ORDERED: methIMAzole 5 MG TABLET PO SCH (09:00)
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
[2022-09-01] MEDS ORDERED: OLANZapine 10 MG VIAL IM ONE (10:40)
[2022-09-01] MEDS ORDERED: LORazepam 2 MG/ML VIAL IVP STA (11:23)
[2022-09-01] MEDS: CLOPIDOGREL 75 MG TABLET PO SCH (11:29)
[2022-09-01] MEDS: ASPIRIN EC 81 MG TABLET PO SCH (11:29)
[2022-09-01] MEDS: PANTOPRAZOLE 40 MG TABLET PO SCH (11:30)
[2022-09-01] MEDS: METOPROLOL SUCCINATE 25 MG TABLET PO SCH ×2 (11:30→17:54)
[2022-09-01] MEDS: methIMAzole 5 MG TABLET PO SCH (11:30)
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
[2022-09-01] MEDS: cefTRIAXone 1 GM in SODIUM CHLORIDE 0.9% MINIBAG 100 ML IV SCH (11:55)
[2022-09-01] MEDS: ENOXAPARIN 30 MG/0.3 ML SYRINGE SUBQ SCH (11:56)
[2022-09-01] MEDS: AMITRIPTYLINE 10 MG TABLET PO SCH (17:53)
[2022-09-01] MEDS: ATORVASTATIN 40 MG TABLET PO SCH (17:54)
[2022-09-01] MEDS: MIRTAZAPINE 15 MG TABLET PO SCH (17:54)
[2022-09-01] MEDS: OLANZapine 10 MG VIAL IM SCH (18:00)
[2022-09-01] MEDS ORDERED: OLANZapine 10 MG VIAL IM SCH (21:00)
[2022-09-02] MEDS: SODIUM CHLORIDE FLUSH 0.9% 10 ML SYRINGE IVP PRN (05:08)
[2022-09-02 05:59] LABS: BASOPHILS % (AUTO) 0.3 %; EOSINOPHILS % (AUTO) 0.1 %; HCT - HEMATOCRIT 43.3 % (37.0-47.0); HGB - HEMOGLOBIN 13.9 g/dL (12.0-16.0); LYMPHOCYTES % (AUTO) 11.4 %; MEAN CORPUSCULAR HEMOGLOBIN 29.4 pg (27.0-31.0); MEAN CORPUSCULAR HGB CONC 32.1 g/dL (32.0-36.0); MEAN CORPUSCULAR VOLUME 91.7 fL (81.0-99.0); MEAN PLATELET VOLUME 11.4 fL (7.9-10.8); MONOCYTES % (AUTO) 11.2 %; NEUTROPHILS % (AUTO) 76.4 %; PLT - PLATELET COUNT 230 10^3/uL (130-450); RED BLOOD COUNT 4.72 10^6/uL (4.20-5.40); RED CELL DISTRIBUTION WIDTH 12.8 % (12.0-15.0)
[2022-09-02 06:03] LABS: ABNORMAL LYMPHS % (MANUAL) 0 %; BAND NEUTROPHILS % (MANUAL) 0 %
[2022-09-02 06:08] LABS: CREATININE 1.2 mg/dL (0.4-1.0); POTASSIUM 3.9 mmol/L (3.5-5.0)
[2022-09-02 06:17] LABS: LYMPHOCYTES # (MANUAL) 2.1 10^3/uL (1.5-3.5); LYMPHOCYTES % (MANUAL) 15 %; MONOCYTES # (MANUAL) 0.8 10^3/uL (0.0-1.0); NEUTROPHILS # (MANUAL) 11.1 10^3/uL (1.5-6.6)
[2022-09-02 06:18] LABS: DIFFERENTIAL COMMENT MANUAL DIFFERENTIAL; PLATELET ESTIMATE, MANUAL NORMAL (130-450,000) (NORMAL); PLATELET MORPHOLOGY NORMAL APPEARANCE (NORMAL); RBC MORPHOLOGY (MULTIPLE) NORMAL APPEARANCE (NORMAL); WBC MORPHOLOGY (MULTIPLE) NORMAL APPEARANCE (NORMAL)
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
[2022-09-02] MEDS: PANTOPRAZOLE 40 MG TABLET PO SCH (08:34)
[2022-09-02] MEDS: CLOPIDOGREL 75 MG TABLET PO SCH (08:34)
[2022-09-02] MEDS: METOPROLOL SUCCINATE 25 MG TABLET PO SCH ×2 (08:35→19:49)
[2022-09-02] MEDS: ASPIRIN EC 81 MG TABLET PO SCH (08:35)
[2022-09-02] MEDS: ENOXAPARIN 30 MG/0.3 ML SYRINGE SUBQ SCH (08:38)
[2022-09-02] MEDS: SODIUM CHLORIDE FLUSH 0.9% 10 ML SYRINGE IVP SCH ×2 (08:39→19:50)
[2022-09-02] MEDS: cefTRIAXone 1 GM in SODIUM CHLORIDE 0.9% MINIBAG 100 ML IV SCH (08:40)
[2022-09-02] MEDS: methIMAzole 5 MG TABLET PO SCH (08:58)
[2022-09-02 09:21] LABS: THYROID STIMULATING HORMONE 0.94 uIU/mL (0.34-5.60)
[2022-09-02 09:22] LABS: FREE T4 (FREE THYROXINE) 1.15 ng/dL (0.58-1.64)
[2022-09-02] MEDS: OLANZapine 10 MG VIAL IM SCH (09:35)
[2022-09-02] MEDS ORDERED: OLANZapine 10 MG VIAL IM PRN ×2 (11:46→17:59)
[2022-09-02] MEDS: ACETAMINOPHEN 325 MG TABLET PO PRN ×2 (13:34→21:17)
[2022-09-02] MEDS: GABAPENTIN 300 MG CAPSULE PO PRN ×2 (13:35→21:18)
[2022-09-02] MEDS ORDERED: OLANZapine ODT 5 MG TABLET TL SCH (17:00)
[2022-09-02] MEDS: MIRTAZAPINE 15 MG TABLET PO SCH (19:50)
[2022-09-02] MEDS: AMITRIPTYLINE 10 MG TABLET PO SCH (19:50)
[2022-09-02] MEDS: ATORVASTATIN 40 MG TABLET PO SCH (19:50)
[2022-09-03] MEDS: SODIUM CHLORIDE FLUSH 0.9% 10 ML SYRINGE IVP SCH ×3 (02:30→16:26)
[2022-09-03] MEDS: ACETAMINOPHEN 325 MG TABLET PO PRN ×3 (04:27→12:58)
[2022-09-03] MEDS: GABAPENTIN 300 MG CAPSULE PO PRN (08:36)
[2022-09-03] MEDS: OLANZapine ODT 5 MG TABLET TL SCH (08:36)
[2022-09-03] MEDS: cefTRIAXone 1 GM in SODIUM CHLORIDE 0.9% MINIBAG 100 ML IV SCH (08:36)
[2022-09-03] MEDS: ENOXAPARIN 30 MG/0.3 ML SYRINGE SUBQ SCH (08:37)
[2022-09-03] MEDS: PANTOPRAZOLE 40 MG TABLET PO SCH (08:38)
[2022-09-03] MEDS: ASPIRIN EC 81 MG TABLET PO SCH (08:39)
[2022-09-03] MEDS: METOPROLOL SUCCINATE 25 MG TABLET PO SCH ×2 (08:39→20:40)
[2022-09-03] MEDS: CLOPIDOGREL 75 MG TABLET PO SCH (08:39)
[2022-09-03] MEDS: methIMAzole 5 MG TABLET PO SCH (08:39)
[2022-09-03] MEDS ORDERED: OLANZapine 10 MG VIAL IM SCH (09:00)
[2022-09-03 11:56] LABS: BASOPHILS % (AUTO) 0.1 %; EOSINOPHILS % (AUTO) 0.1 %; HCT - HEMATOCRIT 41.4 % (37.0-47.0); HGB - HEMOGLOBIN 13.4 g/dL (12.0-16.0); LYMPHOCYTES % (AUTO) 7.2 %; MEAN CORPUSCULAR HEMOGLOBIN 29.6 pg (27.0-31.0); MEAN CORPUSCULAR HGB CONC 32.4 g/dL (32.0-36.0); MEAN CORPUSCULAR VOLUME 91.4 fL (81.0-99.0); MEAN PLATELET VOLUME 11.1 fL (7.9-10.8); MONOCYTES # (AUTO) 1.5 10^3/uL (0.0-1.0); MONOCYTES % (AUTO) 10.4 %; NEUTROPHILS # (AUTO) 11.8 10^3/uL (1.5-6.6); NEUTROPHILS % (AUTO) 81.7 %; PLT - PLATELET COUNT 198 10^3/uL (130-450); RED BLOOD COUNT 4.53 10^6/uL (4.20-5.40); RED CELL DISTRIBUTION WIDTH 12.9 % (12.0-15.0); WHITE BLOOD COUNT 14.5 x10^3/uL (4.8-10.8)
[2022-09-03 11:58] LABS: SLIDE REVIEW? Indicated
[2022-09-03 12:05] LABS: CALCIUM 8.9 mg/dL (8.5-10.3); POTASSIUM 3.6 mmol/L (3.5-5.0)
[2022-09-03 12:25] LABS: DIFFERENTIAL COMMENT MANUAL=AUTO DIFF; PLATELET ESTIMATE, MANUAL NORMAL (130-450,000) (NORMAL); PLATELET MORPHOLOGY NORMAL APPEARANCE (NORMAL); RBC MORPHOLOGY (MULTIPLE) NORMAL APPEARANCE (NORMAL); WBC MORPHOLOGY (MULTIPLE) NORMAL APPEARANCE (NORMAL)
[2022-09-03] MEDS ORDERED: NITROGLYCERIN SL 0.4 MG TABLET SL PRN (14:42)
[2022-09-03] MEDS ORDERED: DOCUSATE SODIUM 100 MG CAPSULE PO PRN (14:54)
[2022-09-03] MEDS: polyethylene glycoL 3350 17 GM PACKET PO SCH (16:25)
[2022-09-03] MEDS: MULTIVITAMIN W/MINERALS TABLET PO SCH (16:26)
[2022-09-03] MEDS: CYCLOBENZAPRINE 10 MG TABLET PO PRN (16:26)
--- NOTE | 2022-09-03 18:30 | PROVIDER PROGRESS NOTE ---
Subjective - Subjective Pt reports feeling: No change Subjective: 86-year-old female with coronary disease, s/p CABG and stents, severe aortic stenosis (pt declined TAVR), hypertension, dementia and diabetes on metformin. SHe was admitted w/NSTEMI. Medical mgmt was recommended. Hospital course has been complicated by acute metabolic encephalopathy d/t UTI. Pt was combative yesterday, requiring 4 point restraints and a sitter She is now more cooperative but continues to require a sitter. She is c/o pain to he feet but is unable to provide any details. RN notes caregivers have reported c/o foot pain at [facility] over the past few weeks. Pt resides at [facility]. Objective - Vital Signs/Intake & Output Vital Signs: Vital Signs x48h Temp Pulse Pulse Resp BP Pulse Ox 09/03/22 17:00 36.7 C 106 H 20 159/84 H 95 09/03/22 11:53 36.6 C 86 18 155/70 H 94 Intake & Output: Intake & Output 08/31/22 09/01/22 09/02/22 09/03/22 23:59 23:59 23:59 23:59 Intake Total 840 880 077 1428 Output Total 100 250 200 301 Balance 740 235 546 4517 - Objective General Appearance: positive: Alert, Other (mildly agitated) Eyes Bilateral: positive: Normal inspection Respiratory: positive: No respiratory distress, Breath sounds nml Cardiovascular: positive: Regular rate & rhythm, No gallop, Systolic murmur Abdomen: positive: Non-tender, No organomegaly, Nml bowel sounds, No distention Skin: positive: Warm, Dry Extremities: positive: No pedal edema, Other (she is very resistant to exam of her legs/ankles/feet) - Lab Results Fish Bones: 09/03/22 11:49 09/03/22 11:49 Other Labs: Lab Results x24hrs 09/03/22 09/03/22 Range/Units 11:49 11:49 WBC 14.5 H (4.8-10.8) x10^3/uL RBC 4.53 (4.20-5.40) 10^6/uL Hgb 13.4 (12.0-16.0) g/dL Hct 41.4 (37.0-47.0) % MCV 91.4 (81.0-99.0) fL MCH 29.6 (27.0-31.0) pg MCHC 32.4 (32.0-36.0) g/dL RDW 12.9 (12.0-15.0) % Plt Count 198 (130-450) 10^3/uL MPV 11.1 H (7.9-10.8) fL Neut # (Auto) 11.8 H (1.5-6.6) 10^3/uL Lymph # (Auto) 1.0 L (1.5-3.5) 10^3/uL [place] # (Auto) 1.5 H (0.0-1.0) 10^3/uL Eos # (Auto) 0.0 (0.0-0.7) 10^3/uL Baso # (Auto) 0.0 (0.0-0.1) 10^3/uL Absolute Nucleated RBC 0.00 x10^3/uL Band Neuts % (Manual) Not Reportable Abnorm Lymph % (Manual) Not Reportable Nucleated RBC % 0.0 /100WBC Neutrophils # (Manual) Not Reportable Lymphocytes # (Manual) Not Reportable Monocytes # (Manual) Not Reportable Eosinophils # (Manual) Not Reportable Basophils # (Manual) Not Reportable Differential Comment MANUAL=AUTO DIFF Manual Slide Review Indicated WBC Morphology NORMAL APPEARANCE (NORMAL) Platelet Estimate NORMAL (130-450,000) (NORMAL) Platelet Morphology NORMAL APPEARANCE (NORMAL) RBC Morph Micro Appear NORMAL APPEARANCE (NORMAL) Sodium 132 L (135-145) mmol/L Potassium 3.6 (3.5-5.0) mmol/L Chloride 99 L (101-111) mmol/L Carbon Dioxide 21 (21-32) mmol/L Anion Gap 12.0 (6-13) BUN 31 H (6-20) mg/dL Creatinine 1.0 (0.4-1.0) mg/dL Estimated GFR (MDRD) 53 L (>89) Glucose 225 H (70-100) mg/dL Calcium 8.9 (8.5-10.3) mg/dL Assessment/Plan - Problem List (1) Acute non-ST elevation myocardial infarction (NSTEMI) Impression: Overall, stable. She reportedly had flash pulmonary edema on admit, but that has since resolved. Cardiology recommended medical mgmt. She remains on aspirin, statin, beta-fouzia, losartan, Plavix, and a nitroglycerin as needed. LDL is at goal at 51. Troponin was trending down at last check on August 30. (2) Aortic stenosis Impression: Reportedly TAVR was recommended and patient declined. Hospital course complicated by flash pulmonary edema earlier in her hospitalization. She is now stable. Qualifiers: Cardiac valve disease etiology: etiology unspecified Qualified Code(s): I 35.0 - Nonrheumatic aortic (valve) stenosis (3) UTI (urinary tract infection) Impression: Pansensitive E. coli UTI. She has received 4 doses of IV Rocephin. Will discontinue after tomorrow's dose. 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 She has required a sitter and four-point restraints. Restraints are presently but sitter remains at bedside. Continue reorienting as able. Avoid sedating medications. (6) On deep vein thrombosis (DVT) prophylaxis Impression: On Lovenox (7) DM type 2 (diabetes mellitus, type 2) Impression: We will place on fingersticks and sliding scale. Controlled carb diet ordered.
[2022-09-03] MEDS: DICLOFENAC SODIUM 1% GEL 50 GM TUBE TOP PRN (20:38)
[2022-09-03] MEDS: LOSARTAN 50 MG TABLET PO SCH (20:39)
[2022-09-03] MEDS: ACETAMINOPHEN 500 MG TABLET PO SCH (20:39)
[2022-09-03] MEDS: ATORVASTATIN 40 MG TABLET PO SCH (20:40)
[2022-09-03] MEDS: MIRTAZAPINE 15 MG TABLET PO SCH (20:40)
[2022-09-03] MEDS: AMITRIPTYLINE 10 MG TABLET PO SCH (20:40)
[2022-09-03] MEDS: INSULIN LISPRO 300 UNIT/3 ML PEN SUBQ SCH (21:00)
[2022-09-04] MEDS: SODIUM CHLORIDE FLUSH 0.9% 10 ML SYRINGE IVP SCH ×3 (00:25→17:40)
[2022-09-04 05:33] LABS: BASOPHILS % (AUTO) 0.2 %; EOSINOPHILS # (AUTO) 0.1 10^3/uL (0.0-0.7); EOSINOPHILS % (AUTO) 0.6 %; HCT - HEMATOCRIT 41.5 % (37.0-47.0); HGB - HEMOGLOBIN 13.7 g/dL (12.0-16.0); LYMPHOCYTES % (AUTO) 15.5 %; MEAN CORPUSCULAR HEMOGLOBIN 30.2 pg (27.0-31.0); MEAN CORPUSCULAR VOLUME 91.4 fL (81.0-99.0); MEAN PLATELET VOLUME 11.3 fL (7.9-10.8); MONOCYTES # (AUTO) 1.5 10^3/uL (0.0-1.0); MONOCYTES % (AUTO) 11.3 %; NEUTROPHILS # (AUTO) 9.4 10^3/uL (1.5-6.6); NEUTROPHILS % (AUTO) 72.1 %; PLT - PLATELET COUNT 197 10^3/uL (130-450); RED BLOOD COUNT 4.54 10^6/uL (4.20-5.40)
[2022-09-04 05:51] LABS: CALCIUM 9.2 mg/dL (8.5-10.3); CREATININE 0.9 mg/dL (0.4-1.0); POTASSIUM 3.5 mmol/L (3.5-5.0)
[2022-09-04] MEDS: ACETAMINOPHEN 325 MG TABLET PO PRN (05:56)
[2022-09-04] MEDS: CYCLOBENZAPRINE 10 MG TABLET PO PRN ×2 (05:56→16:19)
[2022-09-04] MEDS: PANTOPRAZOLE 40 MG TABLET PO SCH (08:57)
[2022-09-04] MEDS: CLOPIDOGREL 75 MG TABLET PO SCH (08:57)
[2022-09-04] MEDS: METOPROLOL SUCCINATE 25 MG TABLET PO SCH ×2 (08:57→21:29)
[2022-09-04] MEDS: CHOLECALCIFEROL 25 MCG TABLET PO SCH (08:57)
[2022-09-04] MEDS: methIMAzole 5 MG TABLET PO SCH (08:58)
[2022-09-04] MEDS: OLANZapine ODT 5 MG TABLET TL SCH (08:58)
[2022-09-04] MEDS: LIDOCAINE OINTMENT 5% 35.44 GM TUBE TOP SCH (08:58)
[2022-09-04] MEDS: ASPIRIN EC 81 MG TABLET PO SCH (08:58)
[2022-09-04] MEDS: MULTIVITAMIN W/MINERALS TABLET PO SCH (08:58)
[2022-09-04] MEDS: FOLIC ACID 1 MG TABLET PO SCH (08:58)
[2022-09-04] MEDS: polyethylene glycoL 3350 17 GM PACKET PO SCH (08:59)
[2022-09-04] MEDS: ENOXAPARIN 30 MG/0.3 ML SYRINGE SUBQ SCH ×2 (08:59→09:21)
[2022-09-04] MEDS ORDERED: SOLIFENACIN SUCCINATE 5 MG TABLET PO PRN (09:00)
[2022-09-04] MEDS: INSULIN LISPRO 300 UNIT/3 ML PEN SUBQ SCH ×5 (09:00→21:35)
[2022-09-04] MEDS ORDERED: METOPROLOL SUCCINATE 25 MG TABLET PO SCH (09:00)
[2022-09-04] MEDS: cefTRIAXone 1 GM in SODIUM CHLORIDE 0.9% MINIBAG 100 ML IV SCH (09:00)
[2022-09-04] MEDS: ACETAMINOPHEN 500 MG TABLET PO SCH ×2 (09:22→21:30)
[2022-09-04] MEDS: DICLOFENAC SODIUM 1% GEL 50 GM TUBE TOP PRN (16:19)
--- NOTE | 2022-09-04 20:15 | PROVIDER PROGRESS NOTE ---
Progress Note September 04, 2022 8:13 PM She is getting up at the bedside. Walking to the bedside commode. She already lives at [facility]. But while here she has had quite a bit of behavioral disturbance. Has needed restraints, Zyprexa. Today Occupational Therapy note: Pt seen with PT as she required 2 person skilled assist during eval. Today, pt requesting to get out of bed. Supine to sit transfer with minAx1. STS transfer w/ FWW and CGA. Pt amb x40' and sits to b/s chair with CGA. Pt reports neck pain only when seated in b/s chair and today is not complaining of RUE pain as during evaluation. Pt oriented to self only and requiring frequent reminders of instructions and reorientation to tasks. Today PT note: Pt seen with OT as she required 2 person skilled assist during eval. Today, pt requesting to get out of bed. Supine to sit transfer with minAx1. STS transfer w/ FWW and CGA. Pt amb x40' and sits to b/s chair with CGA. Pt reports neck pain only when seated in b/s chair and today is not complaining of RUE pain as during evaluation. Pt oriented to self only and requiring frequent reminders of ins tructions and reorientation to tasks. At end of session pt left sitting up in b/s chair with tray table and call light in reach. BRAYAN Abraham present for 1:1 supervision at end of PT/OT session. They are recommending memory care at discharge w continued PT/OT while here. Active Medications Acetaminophen (Acetaminophen 325 Mg Tablet) 650 mg PO Q4HR PRN PRN Reason: Pain 1 to 4, or Fever Last Admin: 09/04/22 05:56 Dose: 650 mg Acetaminophen (Acetaminophen 500 Mg Tablet) 500 mg PO BID [facility] Last Admin: 09/04/22 09:22 Dose: 500 mg Amitriptyline HCl (Amitriptyline 10 Mg Tablet) 10 mg PO QPM [facility] Last Admin: 09/03/22 20:40 Dose: 10 mg Aspirin (Aspirin Ec 81 Mg Tablet) 81 mg PO DAILY [facility] Last Admin: 09/04/22 08:58 Dose: 81 mg Atorvastatin Calcium (Atorvastatin 40 Mg Tablet) 40 mg PO QPM [facility] Last Admin: 09/03/22 20:40 Dose: 40 mg Cholecalciferol (Cholecalciferol 25 Mcg Tablet) 50 mcg PO DAILY [facility] Last Admin: 09/04/22 08:57 Dose: 50 mcg Clopidogrel Bisulfate (Clopidogrel 75 Mg Tablet) 75 mg PO DAILY [facility] Last Admin: 09/04/22 08:57 Dose: 75 mg Cyclobenzaprine HCl (Cyclobenzaprine 10 Mg Tablet) 5 mg PO QID PRN PRN Reason: MUSCLE SPASM Last Admin: 09/04/22 16:19 Dose: 5 mg Diclofenac Sodium (Diclofenac Sodium 1% Gel 50 Gm Tube) 2 gm TOP .BID-TID PRN PRN Reason: PAIN Last Admin: 09/04/22 16:19 Dose: 2 gm Docusate Sodium (Docusate Sodium 100 Mg Capsule) 100 mg PO DAILY PRN PRN Reason: CONSTIPATION Enoxaparin Sodium (Enoxaparin 30 Mg/0.3 Ml Syringe) 30 mg SUBQ DAILY [facility] Last Admin: 09/04/22 09:21 Dose: Not Given Folic Acid (Folic Acid 1 Mg Tablet) 1 mg PO DAILY [facility] Last Admin: 09/04/22 08:58 Dose: 1 mg Gabapentin (Gabapentin 300 Mg Capsule) 300 mg PO TID PRN PRN Reason: neuropathy pain Last Admin: 09/03/22 08:36 Dose: 300 mg Glipizide (Glipizide Er 2.5 Mg Tablet) 2.5 mg PO DAILY [facility] Last Admin: 09/04/22 08:59 Dose: 2.5 mg Ceftriaxone Sodium 1 gm/ (Sodium Chloride) 100 mls @ 200 mls/hr IV DAILY [facility] Stop: 09/04/22 23:59 Last Infusion: 09/04/22 09:30 Dose: Infused Insulin Human Lispro (Insulin Lispro 300 Unit/3 Ml Pen) 0 unit SUBQ 0800,1200,1600,2100 [facility]; Protocol Last Admin: 09/04/22 17:40 Dose: 3 unit Lidocaine (Lidocaine Ointment 5% 35.44 Gm Tube) 1 applic TOP DAILY [facility] Last Admin: 09/04/22 08:58 Dose: 1 applic Losartan Potassium (Losartan 50 Mg Tablet) 12.5 mg PO QPM [facility] Last Admin: 09/03/22 20:39 Dose: 12.5 mg Methimazole (Methimazole 5 Mg Tablet) 2.5 mg PO DAILY [facility] Last Admin: 09/04/22 08:58 Dose: 2.5 mg Metoprolol Succinate (Metoprolol Succinate 25 Mg Tablet) 12.5 mg PO BID [facility] Last Admin: 09/04/22 08:57 Dose: 12.5 mg Mirtazapine (Mirtazapine 15 Mg Tablet) 15 mg PO HS [facility] Last Admin: 09/03/22 20:40 Dose: 15 mg Morphine Sulfate (Morphine 2 Mg/Ml Carpuject) 2 mg IVP Q6HR PRN PRN Reason: dyspnea or severe pain Last Admin: 09/02/22 05:07 Dose: 2 mg Multivitamins/Minerals (Multivitamin W/Minerals Tablet) 1 tab PO DAILYWM [facility] Last Admin: 09/04/22 08:58 Dose: 1 tab Nitroglycerin (Nitroglycerin Sl 0.4 Mg Tablet) 0.4 mg SL Q5MIN PRN PRN Reason: Chest Pain Last Admin: 08/30/22 00:24 Dose: 0.4 mg Nitroglycerin (Nitroglycerin Sl 0.4 Mg Tablet) 0.4 mg SL Q5M PRN PRN Reason: Chest Pain Olanzapine (Olanzapine Odt 5 Mg Tablet) 5 mg TL DAILY [facility] Last Admin: 09/04/22 08:58 Dose: 5 mg Olanzapine (Olanzapine 10 Mg Vial) 5 mg IM DAILY PRN PRN Reason: Agitation Ondansetron HCl (Ondansetron 4 Mg/2 Ml Vial) 4 mg IVP Q6HR PRN PRN Reason: Nausea / Vomiting Last Admin: 08/30/22 09:41 Dose: 4 mg Pantoprazole Sodium (Pantoprazole 40 Mg Tablet) 40 mg PO DAILY [facility] Last Admin: 09/04/22 08:57 Dose: 40 mg Phenazopyridine HCl (Phenazopyridine 100 Mg Tablet) 100 mg PO TID PRN PRN Reason: Bladder Spasms Polyethylene Glycol (Polyethylene Glycol 3350 17 Gm Packet) 17 gm PO DAILY [facility] Last Admin: 09/04/22 08:59 Dose: 17 gm Sodium Chloride (Sodium Chloride Flush 0.9% 10 Ml Syringe) 10 ml IVP PRN PRN PRN Reason: NEEDED PER PROVIDER ORDERS Last Admin: 09/02/22 05:08 Dose: 10 ml Sodium Chloride (Sodium Chloride Flush 0.9% 10 Ml Syringe) 10 ml IVP 0100,0900,1700 [facility] Last Admin: 09/04/22 17:40 Dose: 10 ml Solifenacin (Solifenacin Succinate 5 Mg Tablet) 5 mg PO DAILY PRN PRN Reason: BLADDER CONTROL Sterile Water (Water For Injection,Sterile 10 Ml Vial) 2.1 ml MC BID [facility] Last Admin: 09/04/22 09:22 Dose: Not Given Valsartan [Diovan] 20 mg PO QPM 11/13/17 Cholecalciferol [Vitamin D3] 2,000 units PO DAILY 03/12/18 Nitroglycerin [Nitrostat] 0.4 mg PO Q5M PRN 03/12/18 Amitriptyline [Elavil] 10 mg PO QPM 01/11/22 Aspirin [Aspirin EC] 81 mg PO DAILY 01/11/22 Atorvastatin Calcium 40 mg PO QPM 01/11/22 Meloxicam [Mobic] 7.5 mg PO DAILY 01/11/22 metFORMIN [Glucophage] 500 mg PO BIDWM 01/11/22 methIMAzole [Methimazole] 2.5 mg PO DAILY 01/11/22 Acetaminophen [Acetaminophen Extra Strength] 500 mg PO BID 08/30/22 Cyanocobalamin (Vitamin B-12) [Vitamin B-12 (1000 mcg sublingual)] 1,000 mcg PO DAILY 08/30/22 Cyclobenzaprine HCl 2.5 - 5 mg PO QID PRN 08/30/22 Diclofenac Sodium 1% Gel [Voltaren Gel] 2 gm TOP .BID-TID PRN 08/30/22 Docusate Sodium [Dok] 100 mg PO DAILY PRN 08/30/22 Folic Acid 0.4 mg PO DAILY 08/30/22 Gabapentin [Neurontin] 300 mg PO TID 08/30/22 Lidocaine 1 applic TOP DAILY 08/30/22 Metoprolol Succinate [Toprol Xl] 25 mg PO DAILY 08/30/22 Mirtazapine 15 mg PO HS 08/30/22 Oxybutynin Chloride 5 mg PO BID PRN 08/30/22 Pantoprazole [Protonix] 40 mg PO DAILY 08/30/22 Phenazopyridine [Pyridium] 100 mg PO TID PRN 08/30/22 Spironolactone [Aldactone] 25 mg PO DAILY 08/30/22 glipiZIDE [Glipizide ER] 2.5 mg PO DAILY 08/30/22 Temperature is 36.3. Heart rate 112. Blood pressure 116/81. Respirations 18. 100% on room air. She is a 5 [age] 4 elderly female who weighs 72.5 kg Assessment/Plan - Problem List (1) Acute non-ST elevation myocardial infarction (NSTEMI) Impression: Overall, stable. She reportedly had flash pulmonary edema on admit, but that has since resolved. Cardiology recommended medical mgmt. She remains on aspirin, statin, beta-fouzia, losartan, Plavix, and a nitroglycerin as needed. LDL is at goal at 51. Troponin was trending down at last check on August 30. (2) Aortic stenosis Impression: Reportedly TAVR was recommended and patient declined. Hospital course complicated by flash pulmonary edema earlier in her hospitalization. She is now stable. Qualifiers: Cardiac valve disease etiology: etiology unspecified Qualified Code(s): I35.0 - Nonrheumatic aortic (valve) stenosis (3) UTI (urinary tract infection) Impression: Pansensitive E. coli UTI. She has received 4 doses of IV Rocephin. Will discontinue after today's dose. 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 She has required a sitter and four-point restraints. Restraints are presently but sitter remains at bedside. Continue reorienting as able. Avoid sedating medications. PT and OT as above. She is ready to discharge but the placment of where is an issue. Her [facility] will need to come re-eval her to see if she can return since they do not have memory care? (6) On deep vein thrombosis (DVT) prophylaxis Impression: On Lovenox (7) DM type 2 (diabetes mellitus, type 2) Impression: Glucose yesterday was 190. Today she has been 172, 148, 281, and 226. In her assisted living facility she is on metformin 500 twice daily on fingersticks and sliding scale. Controlled carb diet ordered. Add lantus 5 units in the morning before breakfast.
[2022-09-04] MEDS: MIRTAZAPINE 15 MG TABLET PO SCH (21:28)
[2022-09-04] MEDS: ATORVASTATIN 40 MG TABLET PO SCH (21:28)
[2022-09-04] MEDS: LOSARTAN 50 MG TABLET PO SCH (21:29)
[2022-09-04] MEDS: AMITRIPTYLINE 10 MG TABLET PO SCH (21:29)
[2022-09-04] MEDS: GABAPENTIN 300 MG CAPSULE PO PRN (21:34)
[2022-09-05] MEDS: ACETAMINOPHEN 325 MG TABLET PO PRN (04:23)
[2022-09-05] MEDS: SODIUM CHLORIDE FLUSH 0.9% 10 ML SYRINGE IVP SCH ×2 (04:23→09:44)
[2022-09-05] MEDS: INSULIN LISPRO 300 UNIT/3 ML PEN SUBQ SCH ×2 (09:37→11:39)
[2022-09-05] MEDS: INSULIN GLARGINE-YFGN 300 UNIT/3 ML PEN SUBQ SCH ×2 (09:38→11:07)
[2022-09-05] MEDS: FOLIC ACID 1 MG TABLET PO SCH (09:41)
[2022-09-05] MEDS: CHOLECALCIFEROL 25 MCG TABLET PO SCH (09:41)
[2022-09-05] MEDS: CLOPIDOGREL 75 MG TABLET PO SCH (09:41)
[2022-09-05] MEDS: ACETAMINOPHEN 500 MG TABLET PO SCH (09:41)
[2022-09-05] MEDS: PANTOPRAZOLE 40 MG TABLET PO SCH (09:41)
[2022-09-05] MEDS: METOPROLOL SUCCINATE 25 MG TABLET PO SCH (09:42)
[2022-09-05] MEDS: ASPIRIN EC 81 MG TABLET PO SCH (09:42)
[2022-09-05] MEDS: polyethylene glycoL 3350 17 GM PACKET PO SCH (09:42)
[2022-09-05] MEDS: MULTIVITAMIN W/MINERALS TABLET PO SCH (09:42)
[2022-09-05] MEDS: OLANZapine ODT 5 MG TABLET TL SCH (09:42)
[2022-09-05] MEDS: methIMAzole 5 MG TABLET PO SCH (09:42)
[2022-09-05] MEDS: ENOXAPARIN 30 MG/0.3 ML SYRINGE SUBQ SCH (09:43)
[2022-09-05] MEDS: LIDOCAINE OINTMENT 5% 35.44 GM TUBE TOP SCH (09:43)
--- NOTE | 2022-09-05 11:26 | Discharge Plan ---
"Discharge Plan for SNF / [facility] - Discharge Plan And Transition Orders Problem Reviewed?: Yes Disposition: 01 Home, Self Care Condition: Stable Allergies and Adverse Reactions: Allergies Allergy/AdvReac Type Severity Reaction Status Date / Time meperidine HCl * Allergy Severe Respiratory Verified 03/26/22 11:08 [From Demerol] pain meds Allergy Intermediate Nausea Uncoded 03/26/22 11:08 preservatives in lidocaine Allergy Intermediate Respiratory Uncoded 03/26/22 11:08 preservatives in medications Allergy Intermediate Respiratory Uncoded 03/26/22 11:08 Plan of Treatment: This is a monico 86-year-old demented female who lives in an assisted living facility and has severe aortic stenosis, coronary artery disease with bypass surgery in 2011 that presented with chest pain and shortness of breath on August 29. Evaluation showed her to have had an NSTEMI as well as congestive heart failure. Her cardiology group was called and she has distal coronary artery disease and is not a candidate for repeat angiogram or stenting. They recommended medical management only. She is DO NOT RESUSCITATE and comfort focused treatment. She received anticoagulation, aspirin, Plavix, statin, beta-fouzia, Nitropaste and eventually troponins came back down. She received Lasix for CHF. There was 1 night where she became very agitated and angry and needed restraints as well as Zyprexa. That behavior has not been repeated. She did have a UTI which was treated with IV Rocephin for 5 days. She was reevaluated for return to her assisted living facility and she was felt to be stable enough to return to her previous facility Care Goals: At this time to remain at her assisted living facility for an indefinite time. I would start making plans with the family with regards to when it would be appropriate to transition to formal hospice care. That decision will be made between family, palliative care, and her primary care provider. Assessment: Treatment plan and follow-up not discussed with patient. While she is alert, cooperative, and needs some prompting, she is not able to follow this conversation - SNF / [facility] Transition Orders Admit to (Facility): [facility] Under the care of (Name): CARMITA Gonzáles Discharge Diagnosis: 1. Acute non-ST elevation [place] 2. Coronary artery disease, [place] artery and bypass grafts 3. Severe aortic stenosis 4. E. coli UTI 5. 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 Type 2 diabetes mellitus, without complications, without long-term insulin 7. Chronic kidney disease stage IV 8. Leg cramps Medicare Certification Statement: Notify PCP of admission and forward orders to primary provider for signature. Weight on admission and: Weekly Call PCP immediately if weight increases by: 2 kg Other Notification Orders: Call PCP immediately if patient develops dyspnea, chest pain/tightness or edema. House Bowel Program: Yes Additional Bowel Program Orders: If no BM after 2 days, nurse may give M.O.M. 30ml PO PRN and/or ducolax Supp 1 [place] and/or REYNA 250mg P.O., and/or senna 1-2 tabs PO. On day 3 nurse may give repeat above order until residents constipation is resolved. Annual Influenza Vaccine (between May 02 and November 29): Yes Two-step PPD per [facility] [id number] or approved exception documents: Yes Lab Tests or X-ray Orders: cbc, bmp, bnp 09/12/22 Medication Orders: PLEASE REFER TO THE DISCHARGE MEDICATION LIST. - Medications New Prescriptions: Clopidogrel [Plavix] 75 mg PO DAILY #30 tab - Diet Type: Geriatric Texture: Regular Liquids: Thin May have monthly special meal: Yes - Therapies | Activity Therapy: Evaluation | Treat if indicated: PT, OT Rehabilitation Potential: Maximize functional status, Return to independent living Activity: Activity as Tolerated Assistance Devices: Walker"
--- NOTE | 2022-09-05 12:27 | DISCHARGE SUMMARY ---
"Discharge Summary Admit Date: 08/29/22 Discharge Date: 09/05/22 Discharging Provider: Val Fields MD Primary Care Provider: CARMITA Landis Code Status: Do Not Attempt Resuscitation Condition at Discharge: Stable Discharge Disposition: 01 Home, Self Care - DIAGNOSES Discharge Diagnoses with Status of Each Condition: 1. Acute non-ST elevation [place] 2. Coronary artery disease, [place] artery and bypass grafts 3. Severe aortic stenosis 4. E. coli UTI 5. 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 Type 2 diabetes mellitus, without complications, without long-term insulin 7. Chronic kidney disease stage IV 8. Leg cramp 9. Acute systolic congestive heart failure - HPI History of Present Illness: This is an 86-year-old white female who has a history of coronary disease, CABG and stents, aortic stenosis, hypertension, dementia and diabetes on metformin. The patient has been advised to undergo TAVR for her severe aortic stenosis and has declined this. The patient is compliant with all her medications. Two days ago when she was at a [employer] she felt dizzy briefly, while walking. Since that time she has had on and off episodes of shortness of breath with activity and episodes of chest pain. She cannot remember how long the chest pain lasts. She is vague about all her symptoms. She told her friend about the symptoms who brought her to the emergency room. In the ER she had stable vital signs but labs came back showing a troponin of 1900, BNP 2500 and chest x-ray showing pulmonary edema. Her EKG showed RBBB and had no changes from previous. She received Lasix IV and a therapeutic dose of Lovenox 70 mg subcu. The ER provider, Dr. Whiting, spoke to her [place] Temporary Administrative Assistant's covering doctor who reviewed her last angiogram: The patient has a history of clots in her CABG blood vessels and she underwent stenting of those bypasses plus stenting in [place] coronary arteries and still has some distal coronary disease. Further management should be medical, was the recommendation. The patient had some improvement after receiving the Lasix, is able to lie supine. The ED provider reached out to the Hospitalist team to discuss further management going forward and she will need Inpatient hospitalization for treating her acute NSTEMI and flash pulmonary edema. Patient has a POLST on file which indicates she wants to be a DNR and only comfort directed treatments. - Past Medical History Cardiovascular: reports: Congestive heart failure, Hypertension, High cholesterol, Coronary artery disease, [place], Arrhythmia, Valve disorder, Other Respiratory: reports: Shortness of breath Neuro: reports: Dementia, Other (no migraines nor cluster headaches. ) Endocrine/Autoimmune: reports: Type 2 diabetes, HyPERthyroidism GI: reports: GERD, Hiatal hernia, Hemorrhoids, Diverticulitis, Other [employer]: reports: None : reports: Renal insuffiency, Other HEENT: reports: Chronic vision loss, Chronic hearing loss, Other Psych: reports: Depression, Claustrophobia Musculoskeletal: reports: Osteoarthritis, Chronic back pain Derm: reports: Other MRSA Hx?: No - Past Surgical History General: reports: Cholecystectomy, Appendectomy, Colonoscopy, EGD, Other Ortho: reports: Rotator cuff repair, Spine surgery, Other /[employer]TERN[employer]ER: reports: 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 Cardiovascular: reports: CABG, Coronary stent, Cardiac catheterization, Angioplasty Other past surgical history: Has had 7 surgeries on her back - CONSULTS | PROCEDURES Procedures: Chest x-ray has congestive heart failure exacerbation findings Echocardiogram has left ventricular size is normal. Left ventricular wall thickness is normal. Overall left ventricular systolic function is severely imp aired with an ejection fraction of 25 to 30%. RV size is upper limits of normal. Right ventricular systolic function is mildly to moderately impaired. She has severe aortic stenosis.Chest x-ray has congestive heart failure exacerbation findings - HOSPITAL COURSE Hospital Course: Evaluation showed her to have had an NSTEMI as well as congestive heart failure. Her cardiology group was called and she has distal coronary artery disease and is not a candidate for repeat angiogram or stenting. They recommended medical management only. She is DO NOT RESUSCITATE and comfort focused treatment. She received anticoagulation, aspirin, Plavix, statin, beta-fouzia, Nitropaste and eventually troponins came back down. She received Lasix for CHF. There was 1 night where she became very agitated and angry and needed restraints as well as Zyprexa. That behavior has not been repeated. She did have a UTI which was treated with IV Rocephin for 5 days. During her stay diabetes was consistently in the low 200s to mid 200s. Unfortunately on the moment of discharge she was 370. She is resumed on her usual home meds of glipizide and metformin. She was reevaluated for return to her assisted living facility and she was felt to be stable enough to return to her previous facility At this time the family's plan if for her to remain at her assisted living facility for an indefinite time. I would start making plans with the family with regards to when it would be appropriate to transition to formal palliative or hospice care. That decision will be made between family, palliative care, and her primary care provider. Exam at discharge had a temperature of 36.3. Heart rate 93. Blood pressure 127/69. Respirations 20. 100% saturated on room air. She is 5 feet 4 inches tall and weighs 73 kg. She needs assist to get to the bathroom and uses a walker and a wheelchair. Two-person assist at times. She is confused, forgetful, occasionally anxious. With her anxiety can get restless and demanding. However she is able to appropriately use her extremities and hands and to bring up a blanket to her self. Bring up a glass of water to her self. There is no cough or shortness of breath. Lungs have diminished breath sounds at the bases. No tachypnea or tachycardia. Regular rate and rhythm. And abdomen soft, nontender. Last bowel movement was September 04. Extremities have no edema. She has generalized weakness, needs quite a bit of assistance. Her assisted living facility is evaluated and says she is okay to come back. Hard of hearing. Greater than 30 minutes was spent coordinating discharge - ALLERGIES Allergies/Adverse Reactions: Allergies Allergy/AdvReac Type Severity Reaction Status Date / Time meperidine HCl * Allergy Severe Respiratory Verified 03/26/22 11:08 [From Demerol] pain meds Allergy Intermediate Nausea Uncoded 03/26/22 11:08 preservatives in lidocaine Allergy Intermediate Respiratory Uncoded 03/26/22 11:08 preservatives in medications Allergy Intermediate Respiratory Uncoded 03/26/22 11:08 - MEDICATIONS Home Medications: Ambulatory Orders Medication Instructions Recorded Confirmed Valsartan [Diovan] 20 mg PO QPM 11/13/17 08/30/22 Cholecalciferol [Vitamin D3] 2,000 units PO DAILY 03/12/18 08/30/22 Nitroglycerin [Nitrostat] 0.4 mg PO Q5M PRN 03/12/18 08/30/22 Amitriptyline [Elavil] 10 mg PO QPM 01/11/22 08/30/22 Aspirin [Aspirin EC] 81 mg PO DAILY 01/11/22 08/30/22 Atorvastatin Calcium 40 mg PO QPM 01/11/22 08/30/22 Meloxicam [Mobic] 7.5 mg PO DAILY 01/11/22 08/30/22 metFORMIN [Glucophage] 500 mg PO BIDWM 01/11/22 08/30/22 methIMAzole [Methimazole] 2.5 mg PO DAILY 01/11/22 08/30/22 Acetaminophen [Acetaminophen Extra 500 mg PO BID 08/30/22 08/30/22 Strength] Cyanocobalamin (Vitamin B-12) 1,000 mcg PO DAILY 08/30/22 08/30/22 [Vitamin B-12 (1000 mcg sublingual)] Cyclobenzaprine HCl 2.5 - 5 mg PO QID PRN 08/30/22 08/30/22 Diclofenac Sodium 1% Gel [Voltaren 2 gm TOP .BID-TID PRN 08/30/22 08/30/22 Gel] Docusate Sodium [Dok] 100 mg PO DAILY PRN 08/30/22 08/30/22 Folic Acid 0.4 mg PO DAILY 08/30/22 08/30/22 Gabapentin [Neurontin] 300 mg PO TID 08/30/22 08/30/22 Lidocaine 1 applic TOP DAILY 08/30/22 08/30/22 Metoprolol Succinate [Toprol Xl] 25 mg PO DAILY 08/30/22 08/30/22 Mirtazapine 15 mg PO HS 08/30/22 08/30/22 Oxybutynin Chloride 5 mg PO BID PRN 08/30/22 08/30/22 Pantoprazole [Protonix] 40 mg PO DAILY 08/30/22 08/30/22 Phenazopyridine [Pyridium] 100 mg PO TID PRN 08/30/22 08/30/22 Spironolactone [Aldactone] 25 mg PO DAILY 08/30/22 08/30/22 glipiZIDE [Glipizide ER] 2.5 mg PO DAILY 08/30/22 08/30/22 Clopidogrel [Plavix] 75 mg PO DAILY #30 tab 09/05/22 - LABS Result Diagrams: 09/04/22 05:21 09/04/22 05:21"
[2022-09-05 13:23] VITALS: BP 127/69
== END 2022-09-05 13:00 | disposition home or self-care (01) | DRG 280 ==
LOC: ED 14:13 → MS2 17:18
PROVIDERS: ADMIT Internal Medicine; ATTEND Specialist
DX: I21.4 Non-ST elevation (NSTEMI) myocardial infarction (principal); G93.41 Metabolic encephalopathy; I50.21 Acute systolic (congestive) heart failure; I11.0 Hypertensive heart disease with heart failure; I50.9 Heart failure, unspecified; Z20.822 Contact with and (suspected) exposure to COVID-19; E78.00 Pure hypercholesterolemia, unspecified; J81.0 Acute pulmonary edema; E11.9 Type 2 diabetes mellitus without complications; F03.90 Unspecified dementia, unspecified severity, without behavioral disturbance, psychotic disturbance, mood disturbance, and anxiety; I25.810 Atherosclerosis of coronary artery bypass graft(s) without angina pectoris; I13.0 Hypertensive heart and chronic kidney disease with heart failure and stage 1 through stage 4 chronic kidney disease, or unspecified chronic kidney disease; N18.4 Chronic kidney disease, stage 4 (severe); N17.9 Acute kidney failure, unspecified; N30.00 Acute cystitis without hematuria; F03.93 Unspecified dementia, unspecified severity, with mood disturbance; I25.10 Atherosclerotic heart disease of native coronary artery without angina pectoris; I35.0 Nonrheumatic aortic (valve) stenosis; E11.22 Type 2 diabetes mellitus with diabetic chronic kidney disease; I45.10 Unspecified right bundle-branch block; R41.0 Disorientation, unspecified; R45.1 Restlessness and agitation; R41.3 Other amnesia; F32.A Depression, unspecified; B96.20 Unspecified Escherichia coli [E. coli] as the cause of diseases classified elsewhere; E05.90 Thyrotoxicosis, unspecified without thyrotoxic crisis or storm; Z66 Do not resuscitate; R25.2 Cramp and spasm; Z79.84 Long term (current) use of oral hypoglycemic drugs; Z78.1 Physical restraint status; Z95.1 Presence of aortocoronary bypass graft; Z95.5 Presence of coronary angioplasty implant and graft
CPT/HCPCS: 36415; 71045; 80048; 80053; 80061; 81001; 83690; 83735; 83880; 84439; 84443; 84484; 85025; 87086; 87181; 87633; 93005; 93306; 96374; 97162; 97166; 97530; 99284; 99285; A9270; J1650; J1815; J2060; 83721

== ENCOUNTER 2022-09-05 13:08 | Outpatient (CLI) | payer MEDICARE, OTHER | END 2022-09-05 13:09 | disposition home or self-care (01) | LOC: EMS 13:08 | PROVIDERS: ATTEND Specialist | DX: R41.0 Disorientation, unspecified (principal) | CPT/HCPCS: A0425; A0428 ==

== ENCOUNTER 2022-10-13 03:21 | Outpatient (CLI) | payer MEDICARE, OTHER | END 2022-10-13 03:22 | disposition EMS.NT | LOC: EMS 03:21 | DX: M25.552 Pain in left hip (principal); W18.30XA Fall on same level, unspecified, initial encounter; Y92.099 Unspecified place in other non-institutional residence as the place of occurrence of the external cause ==

== ENCOUNTER 2022-10-14 11:11 | Outpatient (CLI) | payer MEDICARE, OTHER | END 2022-10-14 11:12 | disposition EMS.NT | LOC: EMS 11:11 | DX: R53.83 Other fatigue (principal); R42 Dizziness and giddiness; R30.9 Painful micturition, unspecified; I95.9 Hypotension, unspecified; E16.2 Hypoglycemia, unspecified ==

== ENCOUNTER 2022-10-14 12:34 | Emergency (ER) | payer MEDICARE, OTHER ==
--- NOTE | 2022-10-14 13:20 | ED Physician Documentation ---
History of Present Illness - Stated complaint Stated Complaint: WEAKNESS - Chief complaint Chief Complaint: General - Additonal information Additional information: History is obtained from chart review of previous hospitalization which included discharge summary and hospice palliative care notes. History is also obtained from the patient's POA Etta. 86-year-old female was brought to the emergency department for evaluation of her general health. Reportedly she has had a steep decline in her mentation and oral intake over the last 10 days. Reportedly she had abnormal vital signs at [facility] this morning which included hypotension and hypoglycemia. This patient does have a history of coronary artery disease, previous CABG with stents, severe aortic stenosis, hypertension, diabetes and metformin. Previously she has been advised to have a TAVR completed however she declined to this. According to the POA Bere they were scheduled to see her primary care provider next week to discuss the work-up and consideration of a TAVR. This patient was admitted to this hospital in late August and the first part of September for an NSTEMI, urinary tract infection and acute congestive heart failure in addition to her known medical morbidities which include coronary artery disease, dementia, chronic kidney disease, diabetes The patient is a DNR DNI comfort focused treatment however the POA indicates they would consider a TAVR if it would improve her quality of life. The POA Etta also indicates that they would be interested in transitioning to palliative or hospice care if deemed appropriate at the time of this evaluation. On presentation to the emergency department she appears to be an aged frail geriatric patient. She is demented but is alert and pleasant in conversation.. Blood glucose was 79. She has a soft blood pressure of 99/58. No fever. No tachycardia. Review of Systems Unable to obtain: Dementia PD PAST MEDICAL HISTORY - Past Medical History Cardiovascular: Congestive heart failure, Hypertension, High cholesterol, Coronary artery disease, [place], Arrhythmia, Valve disorder, Other Respiratory: Shortness of breath Neuro: Dementia, Other Endocrine/Autoimmune: Type 2 diabetes, HyPERthyroidism GI: GERD, Hiatal hernia, Hemorrhoids, Diverticulitis, Other ELECTRONIC PAGINATION SYSTEM OPERATOR: None : Renal insuffiency, Other HEENT: Chronic vision loss, Chronic hearing loss, Other Psych: Depression, Claustrophobia Musculoskeletal: Osteoarthritis, Chronic back pain Derm: Other - Past Surgical History Past Surgical History: Yes General: Cholecystectomy, Appendectomy, Colonoscopy, EGD, Other Ortho: Rotator cuff repair, Spine surgery, Other /ELECTRONIC PAGINATION SYSTEM OPERATOR: 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 Cardiovascular: CABG, Coronary stent, Cardiac catheterization, Angioplasty - Present Medications Home Medications: Ambulatory Orders Medication Instructions Recorded Confirmed Valsartan [Diovan] 20 mg PO QPM 11/13/17 08/30/22 Cholecalciferol [Vitamin D3] 2,000 units PO DAILY 03/12/18 08/30/22 Nitroglycerin [Nitrostat] 0.4 mg PO Q5M PRN 03/12/18 08/30/22 Amitriptyline [Elavil] 10 mg PO QPM 01/11/22 08/30/22 Aspirin [Aspirin EC] 81 mg PO DAILY 01/11/22 08/30/22 Atorvastatin Calcium 40 mg PO QPM 01/11/22 08/30/22 Meloxicam [Mobic] 7.5 mg PO DAILY 01/11/22 08/30/22 metFORMIN [Glucophage] 500 mg PO BIDWM 01/11/22 08/30/22 methIMAzole [Methimazole] 2.5 mg PO DAILY 01/11/22 08/30/22 Acetaminophen [Acetaminophen Extra 500 mg PO BID 08/30/22 08/30/22 Strength] Cyanocobalamin (Vitamin B-12) 1,000 mcg PO DAILY 08/30/22 08/30/22 [Vitamin B-12 (1000 mcg sublingual)] Cyclobenzaprine HCl 2.5 - 5 mg PO QID PRN 08/30/22 08/30/22 Diclofenac Sodium 1% Gel [Voltaren 2 gm TOP .BID-TID PRN 08/30/22 08/30/22 Gel] Docusate Sodium [Dok] 100 mg PO DAILY PRN 08/30/22 08/30/22 Folic Acid 0.4 mg PO DAILY 08/30/22 08/30/22 Gabapentin [Neurontin] 300 mg PO TID 08/30/22 08/30/22 Lidocaine 1 applic TOP DAILY 08/30/22 08/30/22 Metoprolol Succinate [Toprol Xl] 25 mg PO DAILY 08/30/22 08/30/22 Mirtazapine 15 mg PO HS 08/30/22 08/30/22 Oxybutynin Chloride 5 mg PO BID PRN 08/30/22 08/30/22 Pantoprazole [Protonix] 40 mg PO DAILY 08/30/22 08/30/22 Phenazopyridine [Pyridium] 100 mg PO TID PRN 08/30/22 08/30/22 Spironolactone [Aldactone] 25 mg PO DAILY 08/30/22 08/30/22 glipiZIDE [Glipizide ER] 2.5 mg PO DAILY 08/30/22 08/30/22 Clopidogrel [Plavix] 75 mg PO DAILY #30 tab 09/05/22 Fluconazole 150 mg PO DAILY #2 tablet 10/14/22 Morphine Oral Soln [Roxanol] 5 mg PO QID #10 ml 10/14/22 - Allergies Allergies/Adverse Reactions: Allergies Allergy/AdvReac Type Severity Reaction Status Date / Time meperidine HCl * Allergy Severe Respiratory Verified 10/14/22 12:53 [From Demerol] pain meds Allergy Intermediate Nausea Uncoded 10/14/22 12:53 preservatives in lidocaine Allergy Intermediate Respiratory Uncoded 10/14/22 12:53 preservatives in medications Allergy Intermediate Respiratory Uncoded 10/14/22 12:53 - Social History Does the pt smoke?: No Smoking Status: Never smoker Does the pt drink ETOH?: No Does the pt have substance abuse?: Yes - Immunizations Immunizations are current?: Yes - POLST Patient has POLST: Yes POLST Status: Full Code PD ED PE EXPANDED - General General: Alert, Other (geriatric frail appearance) - Cardiac Cardiac: Regular Rate, Murmur Present, Radial strong equal, Pedal strong equal, Cap refill < 2 sec, Other (Bilateral pitting edema lower extremities) - Respiratory Respiratory: Other (scattered rhonchi). No: Distress, Labored - Abdomen Abdomen: Normal Bowel sounds. No: Tender to palpation - Derm Derm: Bruising (Bruising on her upper arms.) - Neuro Neuro: Confused, CNII-XII intact - GCS Eye Opening: Spontaneous Motor: Obeys Commands Verbal: Confused Total: 14 Results - Vitals Vitals: Vital Signs - 24 hr 10/14/22 10/14/22 10/14/22 12:45 13:15 13:34 Temperature 36.1 C L Heart Rate 59 L 86 83 Respiratory 16 18 Rate Blood Pressure 99/58 L 95/71 O2 Saturation 100 98 10/14/22 10/14/22 14:11 15:16 Temperature Heart Rate 88 93 Respiratory 21 23 Rate Blood Pressure 91/55 L 132/113 H O2 Saturation 96 95 Oxygen O2 Source Room air - Labs Labs: Laboratory Tests 10/14/22 10/14/22 10/14/22 12:52 13:21 13:21 WBC 13.8 H RBC 4.06 L Hgb 11.4 L Hct 36.8 L MCV 90.6 MCH 28.1 MCHC 31.0 L RDW 15.1 H Plt Count 218 MPV 11.5 H Neut # (Auto) 10.5 H Lymph # (Auto) 2.0 [place] # (Auto) 1.0 Eos # (Auto) 0.2 Baso # (Auto) 0.1 Absolute Nucleated RBC 0.00 Nucleated RBC % 0.0 Sodium 134 L Potassium 5.3 H Chloride 106 Carbon Dioxide 16 L Anion Gap 12.0 BUN 71 H Creatinine 2.8 H Estimated GFR (MDRD) 16 L Glucose 98 POC Whole Bld Glucose 79 Lactic Acid Calcium 9.7 Total Bilirubin 0.7 AST 24 ALT 80 H Alkaline Phosphatase 76 Troponin I High Sens B-Natriuretic Peptide Total Protein 7.1 Albumin 4.2 Globulin 2.9 Albumin/Globulin Ratio 1.4 Urine Color Urine Clarity Urine pH Ur Specific [place] Urine Protein Urine Glucose (UA) Urine Ketones Urine Occult Blood Urine Nitrite Urine Bilirubin Urine Urobilinogen Ur Leukocyte Esterase Urine RBC Urine WBC Ur Squamous Epith Cells Urine Bacteria Urine Culture Comments 10/14/22 10/14/22 10/14/22 13:21 13:21 13:21 WBC RBC Hgb Hct MCV MCH MCHC RDW Plt Count MPV Neut # (Auto) Lymph # (Auto) [place] # (Auto) Eos # (Auto) Baso # (Auto) Absolute Nucleated RBC Nucleated RBC % Sodium Potassium Chloride Carbon Dioxide Anion Gap BUN Creatinine Estimated GFR (MDRD) Glucose POC Whole Bld Glucose Lactic Acid 2.1 Calcium Total Bilirubin AST ALT Alkaline Phosphatase Troponin I High Sens 292.2 H* B-Natriuretic Peptide 3861 H Total Protein Albumin Globulin Albumin/Globulin Ratio Urine Color Urine Clarity Urine pH Ur Specific [place] Urine Protein Urine Glucose (UA) Urine Ketones Urine Occult Blood Urine Nitrite Urine Bilirubin Urine Urobilinogen Ur Leukocyte Esterase Urine RBC Urine WBC Ur Squamous Epith Cells Urine Bacteria Urine Culture Comments 10/14/22 13:30 WBC RBC Hgb Hct MCV MCH MCHC RDW Plt Count MPV Neut # (Auto) Lymph # (Auto) [place] # (Auto) Eos # (Auto) Baso # (Auto) Absolute Nucleated RBC Nucleated RBC % Sodium Potassium Chloride Carbon Dioxide Anion Gap BUN Creatinine Estimated GFR (MDRD) Glucose POC Whole Bld Glucose Lactic Acid Calcium Total Bilirubin AST ALT Alkaline Phosphatase Troponin I High Sens B-Natriuretic Peptide Total Protein Albumin Globulin Albumin/Globulin Ratio Urine Color DARK YELLOW Urine Clarity CLEAR Urine pH 5.5 Ur Specific [place] >=1.030 H Urine Protein 30 H Urine Glucose (UA) NEGATIVE Urine Ketones NEGATIVE Urine Occult Blood NEGATIVE Urine Nitrite NEGATIVE Urine Bilirubin NEGATIVE Urine Urobilinogen 0.2 (NORMAL) Ur Leukocyte Esterase NEGATIVE Urine RBC 0-5 Urine WBC 0-3 Ur Squamous Epith Cells MOD Squamous H Urine Bacteria Few Urine Culture Comments NOT INDICATED PD Medical Decision Making - ED course Complexity details: reviewed results, re-evaluated patient, considered differential, d/w patient ED course: 86-year-old female presents emergency department for evaluation of worsening clinical condition of the last 10 days with failure to eat or drink as well as hypotension and tachycardia at her care facility. She has known history of severe aortic stenosis as well as congestive heart failure and coronary artery disease. She was recently admitted to this hospital for evaluation and management of such and at that time the DPOA Bettye had indicated they were considering hospice and palliative care. Today on evaluation I am presented with a pleasantly demented 86-year-old female. She is noted to have soft blood pressures in the 90s over 50s. She is not tachycardic or febrile. However given the history of the aortic stenosis and known congestive heart failure as well as diabetes and previous CABGs we did obtain a CBC electrolytes, troponin and a BNP. Per my interpretation of the EKG it is essentially unchanged from the most recent completed with hospital admission. Her troponin today is 200. This may be in the setting of known congestive heart failure. The patient is denying chest pain. Her BNP is markedly elevated at 3800 which is an increase from her most recent values at discharge. However perhaps more worrisome is the elevation in her BUN and creatinine. Clinically the patient appears to be developing cardiorenal syndrome which given her advanced age is likely something that will cause her demise in the short-term. The DPOA indicates that she is no longer interested in pursuing TAVR placement for the patient. And would like the patient to become comfortable. I subsequently discussed this case with that wyatt Martinez palliative/hospice care provider. She indicates that the hospice team does have the ability to admit to hospice on Friday evening. She would recommend that the patient be discharged with a prescription for a limited amount of oral morphine should she develop any dyspnea or air hunger and the hospice team will plan to admit her come Friday. I discussed this plan with the patient and her DPOA and they are in agreement for discharge back to [facility] [place]. They are both appreciative for the care. Departure - Departure Disposition: Home, Self Care Clinical Impression: Cardiorenal syndrome with renal failure Aortic stenosis Qualifiers: Cardiac valve disease etiology: etiology unspecified Qualified Code(s): I35.0 - Nonrheumatic aortic (valve) stenosis Dementia Qualifiers: Dementia type: unspecified type Dementia severity: moderate Dementia behavioral or psychological symptom: without behavioral, psychotic, or mood disturbance or anxiety Qualified Code(s): F03.B0 - Unspecified dementia, moderate, without behavioral disturbance, psychotic disturbance, mood disturbance, and anxiety Condition: Critical Prescriptions: Fluconazole 150 mg PO DAILY #2 tablet Morphine Oral Soln [Roxanol] 5 mg PO QID #10 ml Comments: Lolly was seen in the emergency department today for a change in her mental status, ability to eat and vital signs. It appears that she has developed worsening renal failure and heart failure. Family has elected to pursue hospice care. I have placed a hospice referral and the plan is for a hospice admission Friday. In the short-term if she is experiencing any shortness of air or having difficulty breathing I have sent a prescription for morphine oral solution that can be used 4-6 times a day. Use only 5 mg with each dose. Discharge Date/Time: 10/14/22 16:21
[2022-10-14 13:32] LABS: BASOPHILS # (AUTO) 0.1 10^3/uL (0.0-0.1); BASOPHILS % (AUTO) 0.4 %; EOSINOPHILS # (AUTO) 0.2 10^3/uL (0.0-0.7); EOSINOPHILS % (AUTO) 1.6 %; HCT - HEMATOCRIT 36.8 % (37.0-47.0); HGB - HEMOGLOBIN 11.4 g/dL (12.0-16.0); LYMPHOCYTES % (AUTO) 14.5 %; MEAN CORPUSCULAR HEMOGLOBIN 28.1 pg (27.0-31.0); MEAN CORPUSCULAR VOLUME 90.6 fL (81.0-99.0); MEAN PLATELET VOLUME 11.5 fL (7.9-10.8); MONOCYTES % (AUTO) 7.2 %; NEUTROPHILS # (AUTO) 10.5 10^3/uL (1.5-6.6); PLT - PLATELET COUNT 218 10^3/uL (130-450); RED BLOOD COUNT 4.06 10^6/uL (4.20-5.40); RED CELL DISTRIBUTION WIDTH 15.1 % (12.0-15.0); WHITE BLOOD COUNT 13.8 x10^3/uL (4.8-10.8)
[2022-10-14 13:39] LABS: GLUCOSE, URINE (UA) NEGATIVE (NEGATIVE); KETONES,URINE (UA) NEGATIVE (NEGATIVE); LEUKOCYTE ESTERASE, URINE NEGATIVE (NEGATIVE); NITRITE,URINE NEGATIVE (NEGATIVE); OCCULT BLOOD,URINE NEGATIVE (NEGATIVE); PH,URINE 5.5 PH (5.0-7.5); PROTEIN,URINE 30 mg/dL (NEGATIVE); UROBILINOGEN,URINE 0.2 (NORMAL) E.U./dL (NORMAL)
[2022-10-14 13:40] LABS: CLARITY,URINE CLEAR (CLEAR)
[2022-10-14 13:41] LABS: LACTIC ACID, VENOUS 2.1 mmol/L (0.5-2.2)
[2022-10-14 13:44] LABS: BILIRUBIN,URINE NEGATIVE (NEGATIVE); ICTOTEST,URINE NEGATIVE
[2022-10-14 13:48] LABS: ALBUMIN 4.2 g/dL (3.2-5.5); ALBUMIN/GLOBULIN RATIO 1.4 (1.0-2.2); BILIRUBIN,TOTAL 0.7 mg/dL (0.2-1.0); CALCIUM 9.7 mg/dL (8.5-10.3); CREATININE 2.8 mg/dL (0.4-1.0); POTASSIUM 5.3 mmol/L (3.5-5.0); TOTAL PROTEIN 7.1 g/dL (6.7-8.2)
--- OUTSIDE RECORDS SUMMARY | 2022-10-14 13:50 | EXTERNAL MEDICAL SUMMARY RPT | Continuity of Care Document ---
:1935 Author Organization [facility] Address [address] [place] [address] Phone Care Team Providers Name Role Phone Unavailable Unavailable Unavailable Yue Nino Unavailable Unavailable Allergies No information. Encounters No information. Functional Status No information. Immunizations No information. Medications date description facility 2022-07-17 00:00 [facility] cindi 2022-07-18 00:00 [facility] cindi 2022-07-25 00:00 [facility] cindi 2022-07-26 00:00 [facility] cindi 2022-08-06 00:00 [facility] cindi 2022-08-29 00:00 [facility] cindi 2022-08-30 00:00 [facility] cindi 2022-08-31 00:00 [facility] Humza puente 2022-09-01 00:00 [facility] cindi 2022-09-02 00:00 [facility] C cindi 2022-09-03 00:00 [facility] cindi 2022-09-04 00:00 [facility] cindi 2022-09-05 00:00 [facility] C cindi 2022-09-06 00:00 [facility] C cindi 2022-09-27 00:00 [facility] C cindi 2022-09-28 00:00 [facility] C cindi 2022-09-29 00:00 [facility] C cindi 2022-09-30 00:00 [facility] C cindi 2022-10-01 00:00 [facility] C cindi 2022-07-17 00:00 FUROSEMIDE [facility] Prim jase [...] [facility] C cindi 2022-08-29 00:00 [facility]UROSEMIDE [facility] C cindi 2022-08-30 00:00 FUROSEMIDE [facility] C cindi 2022-08-31 00:00 FUROSEMIDE [facility] C cindi 2022-09-01 00:00 FUROSEMIDE [facility] C cindi 2022-09-02 00:00 FUROSEMIDE [facility] C cindi 2022-09-03 00:00 FUROSEMIDE [facility] C cindi 2022-09-04 00:00 FUROSEMIDE [facility] C cindi 2022-09-05 00:00 [facility]UROSEMIDE [facility] C cindi 2022-09-06 00:00 [facility]OSEMIDE [facility] Prim jsae [facility] C cindi 2022-09-27 00:00 [facility]UROSEMIDE [facility] C cindi 2022-09-28 00:00 [facility]UROSEMIDE [facility] C cindi 2022-09-29 00:00 FUROSEMIDE [facility] C cindi 2022-09-30 00:00 FUROSEMIDE [facility] C cindi 2022-10-01 00:00 FUROSEMIDE [facility] C cindi 2022-07-17 00:00 CYANOCOBALAMIN [facility] Prim jase [...] [facility] C cindi 2022-08-29 00:00 CYANOCOBALAMIN [facility] C cindi 2022-08-30 00:00 CYANOCOBALAMIN [facility] C cindi 2022-08-31 00:00 CYANOCOBALAMIN [facility] C cindi 2022-09-01 00:00 CYANOCOBALAMIN [facility] C cindi 2022-09-02 00:00 CYANOCOBALAMIN [facility] C cindi 2022-09-03 00:00 CYANOCOBALAMIN [facility] C cindi 2022-09-04 00:00 CYANOCOBALAMIN [facility] C cindi 2022-09-05 00:00 CYANOCOBALAMIN [facility] C cindi 2022-09-06 00:00 CYANOCOBALAMIN [facility] C cindi 2022-09-27 00:00 CYANOCOBALAMIN [facility] C cindi 2022-09-28 00:00 CYANOCOBALAMIN [facility] C cindi 2022-09-29 00:00 CYANOCOBALAMIN [facility] C cindi 2022-09-30 00:00 CYANOCOBALAMIN [facility] C cindi 2022-10-01 00:00 CYANOCOBALAMIN [facility] C cindi 2022-07-17 00:00 DIAZEPAM [facility] Prim jase [...] [facility] C cindi 2022-08-29 00:00 DIAZEPAM [facility] C cindi 2022-08-30 00:00 DIAZEPAM [facility] C cindi 2022-08-31 00:00 DIAZEPAM [facility] C cindi 2022-09-01 00:00 DIAZEPAM [facility] C cindi 2022-09-02 00:00 DIAZEPAM [facility] C cindi 2022-09-03 00:00 DIAZEPAM [facility] C cindi 2022-09-04 00:00 DIAZEPAM [facility] C cindi 2022-09-05 00:00 DIAZEPAM [facility] C cindi 2022-09-06 00:00 DIAZEPAM [facility] C cindi 2022-09-27 00:00 DIAZEPAM [facility] C cindi 2022-09-28 00:00 DIAZEPAM [facility] C cindi 2022-09-29 00:00 DIAZEPAM [facility] C cindi 2022-09-30 00:00 DIAZEPAM [facility] C cindi 2022-10-01 00:00 [facility]ZEPAM [facility] C cindi 2022-07-17 00:00 mirtazapine [facility] Prim jase [...] [facility] C cindi 2022-08-29 00:00 mirtazapine [facility] C cindi 2022-08-30 00:00 mirtazapine [facility] C cindi 2022-08-31 00:00 mirtazapine [facility] C cindi 2022-09-01 00:00 mirtazapine [facility] C cindi 2022-09-02 00:00 mirtazapine [facility] C cindi 2022-09-03 00:00 mirtazapine [facility] C cindi 2022-09-04 00:00 mirtazapine [facility] C cindi 2022-09-05 00:00 mirtazapine [facility] C cindi 2022-09-06 00:00 mirtazapine [facility] C cindi 2022-09-27 00:00 mirtazapine [facility] C cindi 2022-09-28 00:00 mirtazapine [facility] C cindi 2022-09-29 00:00 mirtazapine [facility] C cindi 2022-09-30 00:00 mirtazapine [facility] C cindi 2022-10-01 00:00 mirtazapine [facility] C cindi 2022-07-17 00:00 metoprolol succinate [facility] Pr [...] imary [facility] C cindi 2022-08-29 00:00 metoprolol succinate [facility] Pr imary [facility] C cindi 2022-08-30 00:00 metoprolol succinate [facility] Pr imary [facility] C cindi 2022-08-31 00:00 metoprolol succinate [facility] Pr im[facility] C cindi 2022-09-01 00:00 metoprolol succinate [facility] Pr im[facility] C cindi 2022-09-02 00:00 metoprolol succinate [facility] Pr im[facility] C cindi 2022-09-03 00:00 metoprolol succinate [facility] Pr im[facility] C cindi 2022-09-04 00:00 metoprolol succinate [facility] Pr im[facility] C cindi 2022-09-05 00:00 metoprolol succinate [facility] Pr [facility] C cindi 2022-09-06 00:00 metoprolol succinate [facility] Pr [facility] C cindi 2022-09-27 00:00 metoprolol succinate [facility] Pr im[facility] C cindi 2022-09-28 00:00 metoprolol succinate [facility] Pr [facility] C cindi 2022-09-29 00:00 metoprolol succinate [facility] Pr [facility] C cindi 2022-09-30 00:00 metoprolol succinate [facility] Pr [facility] C cindi 2022-10-01 00:00 metoprolol succinate [facility] Pr [facility] C cindi 2022-07-17 00:00 glipizide [facility] Prim jase [...] [facility] C cindi 2022-08-29 00:00 glipizide [facility] C cindi 2022-08-30 00:00 glipizide [facility] C cindi 2022-08-31 00:00 glipizide [facility] C cindi 2022-09-01 00:00 glipizide [facility] C cindi 2022-09-02 00:00 glipizide [facility] Humza puente 2022-09-03 00:00 glipizide [facility] C cindi 2022-09-04 00:00 glipizide [facility] C cindi 2022-09-05 00:00 glipizide [facility] C cindi 2022-09-06 00:00 glipizide [facility] C cindi 2022-09-27 00:00 glipizide [facility] Humza puente 2022-09-28 00:00 glipizide [facility] C cindi 2022-09-29 00:00 glipizide [facility] C cindi 2022-09-30 00:00 glipizide [facility] C cindi 2022-10-01 00:00 glipizide [facility] C cindi 2022-07-17 00:00 FOLIC ACID [facility] Prim [...] [facility] C cindi 2022-08-29 00:00 FOLIC ACID [facility] Prim [facility] C cindi 2022-08-30 00:00 FOLIC ACID [facility] C cindi 2022-08-31 00:00 FOLIC ACID [facility] C cindi 2022-09-01 00:00 FOLIC ACID [facility] uHmza puente 2022-09-02 00:00 FOLIC ACID [facility] C cindi 2022-09-03 00:00 FOLIC ACID [facility] C cindi 2022-09-04 00:00 FOLIC ACID [facility] C cindi 2022-09-05 00:00 FOLIC ACID [facility] C cindi 2022-09-06 00:00 FOLIC ACID [facility] C cindi 2022-09-27 00:00 FOLIC ACID [facility] C cindi 2022-09-28 00:00 FOLIC ACID [facility] C cindi 2022-09-29 00:00 FOLIC ACID [facility] Humza puente 2022-09-30 00:00 FOLIC ACID [facility] C cindi 2022-10-01 00:00 FOLIC ACID [facility] C cindi 2022-07-17 00:00 ASPIRIN [facility] Prim jase [...] [facility] C cindi 2022-08-29 00:00 ASPIRIN [facility] C cindi 2022-08-30 00:00 ASPIRIN [facility] C cindi 2022-08-31 00:00 ASPIRIN [facility] C cindi 2022-09-01 00:00 ASPIRIN [facility] C cindi 2022-09-02 00:00 ASPIRIN [facility] C cindi 2022-09-03 00:00 ASPIRIN [facility] C cindi 2022-09-04 00:00 ASPIRIN [facility] C cindi 2022-09-05 00:00 ASPIRIN [facility] C cindi 2022-09-06 00:00 ASPIRIN [facility] C cindi 2022-09-27 00:00 ASPIRIN [facility] C cindi 2022-09-28 00:00 ASPIRIN [facility] C cindi 2022-09-29 00:00 ASPIRIN [facility] C cindi 2022-09-30 00:00 ASPIRIN [facility] C cindi 2022-10-01 00:00 ASPIRIN [facility] C cindi 2022-07-17 00:00 phenazopyridine [facility] C cindi 2022-07-18 00:00 phenazopyridine [facility] C cindi 2022-07-25 00:00 phenazopyridine [facility] C cindi 2022-07-26 00:00 phenazopyridine [facility] C cnidi 2022-08-06 00:00 phenazopyridine [facility] C cindi 2022-08-29 00:00 phenazopyridine [facility] C cindi 2022-08-30 00:00 phenazopyridine [facility] C cindi 2022-08-31 00:00 phenazopyridine [facility] C cindi 2022-09-01 00:00 phenazopyridine [facility] C cindi 2022-09-02 00:00 phenazopyridine [facility] C cindi 2022-09-03 00:00 phenazopyridine [facility] C cindi 2022-09-04 00:00 phenazopyridine [facility] C cindi 2022-09-05 00:00 phenazopyridine [facility] C cindi 2022-09-06 00:00 phenazopyridine [facility] C cindi 2022-09-27 00:00 phenazopyridine [facility] C cindi 2022-09-28 00:00 phenazopyridine [facility] C cindi 2022-09-29 00:00 phenazopyridine [facility] C cindi 2022-09-30 00:00 phenazopyridine [facility] C cindi 2022-10-01 00:00 phenazopyridine [facility] C cindi 2022-07-17 00:00 POTASSIUM CHLORIDE [facility] Prim [...] jase [facility] C cindi 2022-08-29 00:00 POTASSIUM CHLORIDE [facility] Prim [facility] C cindi 2022-08-30 00:00 POTASSIUM CHLORIDE [facility] Prim [facility] C cindi 2022-08-31 00:00 POTASSIUM CHLORIDE [facility] Prim [facility] C cindi 2022-09-01 00:00 POTASSIUM CHLORIDE [facility] Prim [facility] C cindi 2022-09-02 00:00 POTASSIUM CHLORIDE [facility] C cindi 2022-09-03 00:00 POTASSIUM CHLORIDE [facility] Prim [facility] C cindi 2022-09-04 00:00 POTASSIUM CHLORIDE [facility] Prim [facility] C cindi 2022-09-05 00:00 POTASSIUM CHLORIDE [facility] Prim [facility] C cindi 2022-09-06 00:00 POTASSIUM CHLORIDE [facility] C cindi 2022-09-27 00:00 POTASSIUM CHLORIDE [facility] Prim [facility] C cindi 2022-09-28 00:00 POTASSIUM CHLORIDE [facility] Prim [facility] C cindi 2022-09-29 00:00 POTASSIUM CHLORIDE [facility] C cindi 2022-09-30 00:00 POTASSIUM CHLORIDE [facility] C cindi 2022-10-01 00:00 POTASSIUM CHLORIDE [facility] C cindi 2022-07-17 00:00 docusate sodium [facility] Prim [...] j[facility] C cindi 2022-08-29 00:00 docusate sodium [facility] C cindi 2022-08-30 00:00 docusate sodium [facility] C cindi 2022-08-31 00:00 docusate sodium [facility] C cindi 2022-09-01 00:00 docusate sodium [facility] C cindi 2022-09-02 00:00 docusate sodium [facility] C cindi 2022-09-03 00:00 docusate sodium [facility] C cindi 2022-09-04 00:00 docusate sodium [facility] C cindi 2022-09-05 00:00 docusate sodium [facility] C cindi 2022-09-06 00:00 docusate sodium [facility] C cindi 2022-09-27 00:00 docusate sodium [facility] C cindi 2022-09-28 00:00 docusate sodium [facility] C cindi 2022-09-29 00:00 docusate sodium [facility] C cindi 2022-09-30 00:00 docusate sodium [facility] C cindi 2022-10-01 00:00 docusate sodium [facility] C cindi 2022-07-17 00:00 phenazopyridine Walk[facility] Prim jase [...] jase [facility] C cindi 2022-08-29 00:00 phenazopyridine [facility] Prim [facility] C cindi 2022-08-30 00:00 phenazopyridine [facility] Prim [facility] C cindi 2022-08-31 00:00 phenazopyridine [facility] Prim [facility] C cindi 2022-09-01 00:00 phenazopyridine [facility] Prim [facility] C cindi 2022-09-02 00:00 phenazopyridine [facility] Prim [facility] C cindi 2022-09-03 00:00 phenazopyridine [facility] Prim [facility] C cindi 2022-09-04 00:00 phenazopyridine [facility] Prim [facility] C cindi 2022-09-05 00:00 phenazopyridine [facility] Prim [facility] C cindi 2022-09-06 00:00 phenazopyridine [facility] Prim [facility] C cindi 2022-09-27 00:00 phenazopyridine [facility] Prim [facility] C cindi 2022-09-28 00:00 phenazopyridine [facility] Prim [facility] C cindi 2022-09-29 00:00 phenazopyridine [facility] Prim [facility] C cindi 2022-09-30 00:00 phenazopyridine [facility] Prim j[facility] C cindi 2022-10-01 00:00 [facility]ridine [facility] cindi 2022-07-17 00:00 peg [id number]-yseyqiul [facility] C cindi 2022-07-18 00:00 peg 102-nzzwqfhnrwba-hhxddjgl [facility] Huzma puente 2022-07-25 00:00 peg [id number]-nqkfttaw [facility] C cindi 2022-07-26 00:00 peg [id number]-ucawjscegwsm-aorhjxnt [facility] C cindi 2022-08-06 00:00 peg 216-zpfvoawdazri-mrqyvnjl [facility] Humza puente 2022-08-29 00:00 peg [id number]-izftkonz [facility] Humza puente 2022-08-30 00:00 peg [id number]-sohzhuadybch-kvszsfoh [facility] Humza puente 2022-08-31 00:00 peg 123-zjwnyjcujzim-dauwwnzo [facility]za cindi 2022-09-01 00:00 peg [id number]-tqkvxwjf [facility]za cindi 2022-09-02 00:00 peg 540-kwblafignnmy-gbuybzqk [facility] Humza puente 2022-09-03 00:00 peg 390-kyidgebtidlz-affbtreu [facility]za [facility]cgoverncindi 2022-09-04 00:00 peg [id number]-ruveicwb [facility] C cindi 2022-09-05 00:00 peg 338-aspmakyaosfx-nefobflx [facility] C cindi 2022-09-06 00:00 peg 341-iwymhkaqepqp-erddrrzl [facility] C cindi 2022-09-27 00:00 peg 238-qbrnnhxbsran-jmfoxigu [facility]za mcgoverncindi 2022-09-28 00:00 peg 691-qbqlcoifkokx-gpomzzax [facility] 2022-09-29 00:00 peg 407-oudhusbjvtun-kewexkad [facility] 2022-09-30 00:00 peg 594-iwisnmkcdchd-graezddd [facility] 2022-10-01 00:00 peg 278-cdedqbxydziw-inkbiamk [facility] 2022-07-17 00:00 cholecalciferol (vitamin d3) Walk-In [facility] 2022-07-18 00:00 cholecalciferol (vitamin d3) Walk-In [facility] 2022-07-25 00:00 cholecalciferol (vitamin d3) Walk-In [facility] 2022-07-26 00:00 cholecalciferol (vitamin d3) Walk-In [facility] 2022-08-06 00:00 cholecalciferol (vitamin d3) Walk-In [facility] 2022-08-29 00:00 cholecalciferol (vitamin d3) Walk-In [facility] 2022-08-30 00:00 cholecalciferol (vitamin d3) Walk-In [facility] 2022-08-31 00:00 cholecalciferol (vitamin d3) Walk-In [facility] 2022-09-01 00:00 cholecalciferol (vitamin d3) Walk-In [facility] 2022-09-02 00:00 cholecalciferol (vitamin d3) Walk-In [facility] 2022-09-03 00:00 cholecalciferol (vitamin d3) Walk-In [facility] 2022-09-04 00:00 cholecalciferol (vitamin d3) Walk-In [facility] 2022-09-05 00:00 cholecalciferol (vitamin d3) Walk-In [facility] Anc[facility] Services cindi 2022-09-06 00:00 cholecalciferol (vitamin d3) Walk-In [facility] Services cindi 2022-09-27 00:00 cholecalciferol (vitamin d3) Walk-In [facility] cindi 2022-09-28 00:00 cholecalciferol (vitamin d3) Walk-In [facility] cindi 2022-09-29 00:00 cholecalciferol (vitamin d3) Walk-In [facility] cindi 2022-09-30 00:00 cholecalciferol (vitamin d3) Walk-In [facility] cindi 2022-10-01 00:00 cholecalciferol (vitamin d3) Walk-In [facility] cindi 2022-07-17 00:00 DIAZEPAM Walk[facility] Prim jase [facility] cindi 2022-07-18 00:00 DIAZEPAM [facility] Prim j[facility] cindi 2022-07-25 00:00 DIAZEPAM [facility] Prim j[facility] cindi 2022-07-26 00:00 DIAZEPAM [facility] Prim j[facility] cindi 2022-08-06 00:00 [facility]ZEPAM [facility] DIAZEPAM [facility] Prim jase Care & [facility] 2022-08-30 00:00 DIAZEPAM [facility] Prim [facility] 2022-08-31 00:00 DIAZEPAM [facility] 2022-09-01 00:00 DIAZEPAM [facility] Prim [facility] C c[facility] 2022-09-02 00:00 DIAZEPAM [facility] Prim [facility] C cindi 2022-09-03 00:00 DIAZEPAM [facility] Prim [facility] C cindi 2022-09-04 00:00 DIAZEPAM [facility] C c[facility] 2022-09-05 00:00 DIAZEPAM [facility] Prim [facility] C cindi 2022-09-06 00:00 DIAZEPAM [facility] Prim [facility] C cindi 2022-09-27 00:00 DIAZEPAM [facility] Prim jaes [facility] & [facility] Services C cindi 2022-09-28 00:00 DIAZEPAM [facility] Prim [facility] C cindi 2022-09-29 00:00 DIAZEPAM [facility] Prim [facility] C cindi 2022-09-30 00:00 DIAZEPAM [facility] C c[facility] 2022-10-01 00:00 DIAZEPAM [facility] C c[facility] 2022-07-17 00:00 lidocaine Walk[facility]In [facility] Prim jase [...] [facility] C c[facility] 2022-08-29 00:00 lidocaine [facility] Prim [facility] C c[facility] 2022-08-30 00:00 lidocaine [facility] Prim [facility] C c[facility] 2022-08-31 00:00 lidocaine [facility] Prim [facility] C cindi 2022-09-01 00:00 lidocaine [facility] Prim [facility] C cindi 2022-09-02 00:00 lidocaine [facility] Prim [facility] C cindi 2022-09-03 00:00 lidocaine [facility] Prim [facility] C cindi 2022-09-04 00:00 lidocaine [facility] C c[facility] 2022-09-05 00:00 lidocaine [facility] Prim [facility] C c[facility] 2022-09-06 00:00 lidocaine [facility] Prim [facility] C c[facility] 2022-09-27 00:00 lidocaine [facility] Prim [facility] C [facility] 2022-09-28 00:00 [facility]ocaine [facility] 2022-09-29 00:00 [facility]aine [facility] 2022-09-30 00:00 [facility]aine [facility] c[facility] 2022-10-01 00:00 [facility]ocaine [facility] c[facility] 2022-07-17 00:00 flash glucose sensor Walk-In Clinic [...] imary [facility] C cindi 2022-08-29 00:00 flash glucose sensor [facility] Pr imary [facility] C c[facility] 2022-08-30 00:00 flash glucose sensor [facility] Pr [facility] C c[facility] 2022-08-31 00:00 flash glucose sensor [facility] Pr [facility] C cindi 2022-09-01 00:00 flash glucose sensor [facility] Pr [facility] C c[facility] 2022-09-02 00:00 flash glucose sensor [facility] Pr [facility] C c[facility] 2022-09-03 00:00 flash glucose sensor [facility] Pr [facility] C cindi 2022-09-04 00:00 flash glucose sensor [facility] Pr [facility] C cindi 2022-09-05 00:00 flash glucose sensor [facility] Pr [facility] C cindi 2022-09-06 00:00 flash glucose sensor [facility] Pr [facility] C cindi 2022-09-27 00:00 flash glucose sensor [facility] Pr [facility] 2022-09-28 00:00 flash glucose sensor [facility] Pr [facility] C c[facility] 2022-09-29 00:00 flash glucose sensor [facility] Pr [facility] C cindi 2022-09-30 00:00 flash glucose sensor [facility] Pr [facility] C cindi 2022-10-01 00:00 flash glucose sensor [facility] Pr [facility] C cindi 2022-07-17 00:00 flash glucose scanning reader Walk-In [...] [facility] C [facility] 2022-08-29 00:00 flash glucose scanning reader [facility] C cindi 2022-08-30 00:00 flash glucose scanning reader [facility] C c[facility] 2022-08-31 00:00 flash glucose scanning reader [facility] C cindi 2022-09-01 00:00 flash glucose scanning reader [facility] C cindi 2022-09-02 00:00 flash glucose scanning reader [facility] C c[facility] 2022-09-03 00:00 flash glucose scanning reader [facility] C c[facility] 2022-09-04 00:00 flash glucose scanning reader [facility] C c[facility] 2022-09-05 00:00 flash glucose scanning reader [facility] C c[facility] 2022-09-06 00:00 flash glucose scanning reader [facility] C c[facility] 2022-09-27 00:00 flash glucose scanning reader [facility] C c[facility] 2022-09-28 00:00 flash glucose scanning reader [facility] C c[facility] 2022-09-29 00:00 flash glucose scanning reader [facility] C c[facility] 2022-09-30 00:00 flash glucose scanning reader [facility] C c[facility] 2022-10-01 00:00 flash glucose scanning reader [facility] C c[facility] 2022-07-17 00:00 CLOPIDOGREL BISULFATE Walk-In Clinic P [...] rimary [facility] C c[facility] 2022-08-29 00:00 CLOPIDOGREL BISULFATE Walk[facility]In [facility] P rim[facility] C cindi 2022-08-30 00:00 CLOPIDOGREL BISULFATE Walk[facility]In [facility] P rim[facility] C cindi 2022-08-31 00:00 CLOPIDOGREL BISULFATE Walk[facility] P rim[facility] C c[facility] 2022-09-01 00:00 CLOPIDOGREL BISULFATE Walk[facility]In [facility] P rim[facility] C c[facility] 2022-09-02 00:00 CLOPIDOGREL BISULFATE Walk[facility] P rim[facility] C c[facility] 2022-09-03 00:00 CLOPIDOGREL BISULFATE Walk[facility] P rim[facility] C c[facility] 2022-09-04 00:00 CLOPIDOGREL BISULFATE Walk[facility] P rim[facility] C c[facility] 2022-09-05 00:00 CLOPIDOGREL BISULFATE Walk[facility]In [facility] P rim[facility] C c[facility] 2022-09-06 00:00 CLOPIDOGREL BISULFATE Walk[facility]In [facility] P rim[facility] C c[facility] 2022-09-27 00:00 CLOPIDOGREL BISULFATE Walk[facility]In [facility] P [facility] C c[facility] 2022-09-28 00:00 CLOPIDOGREL BISULFATE Walk[facility]In [facility] P [facility] C [facility] 2022-09-29 00:00 CLOPIDOGREL BISULFATE [facility] P [facility] c[facility] 2022-09-30 00:00 CLOPIDOGREL BISULFATE [facility] P [facility] c[facility] 2022-10-01 00:00 CLOPIDOGREL BISULFATE Walk[facility]In [facility] P rim[facility] 2022-07-17 00:00 cyanocobalamin (vitamin b-12) Walk-In Clinic [...] Clinic [facility] 2022-08-29 00:00 cyanocobalamin (vitamin b-12) [facility] 2022-08-30 00:00 cyanocobalamin (vitamin b-12) [facility] c[facility] 2022-08-31 00:00 cyanocobalamin (vitamin b-12) [facility] 2022-09-01 00:00 cyanocobalamin (vitamin b-12) [facility] 2022-09-02 00:00 cyanocobalamin (vitamin b-12) [facility] c[facility] 2022-09-03 00:00 cyanocobalamin (vitamin b-12) [facility] 2022-09-04 00:00 cyanocobalamin (vitamin b-12) [facility] c[facility] 2022-09-05 00:00 cyanocobalamin (vitamin b-12) [facility] cindi 2022-09-06 00:00 cyanocobalamin (vitamin b-12) [facility] 2022-09-27 00:00 cyanocobalamin (vitamin b-12) [facility] 2022-09-28 00:00 cyanocobalamin (vitamin b-12) [facility] 2022-09-29 00:00 cyanocobalamin (vitamin b-12) [facility] 2022-09-30 00:00 cyanocobalamin (vitamin b-12) [facility] 2022-10-01 00:00 cyanocobalamin (vitamin b-12) [facility] 2022-07-17 00:00 glipizide Walk[facility] Prim [facility] pu[facility] 2022-07-18 00:00 glipizide [facility] Prim [facility] pu[facility] 2022-07-25 00:00 glipizide [facility] Prim [facility] cindi 2022-07-26 00:00 glipizide [facility] Prim [facility] pu[facility] 2022-08-06 00:00 glipizide [facility] Prim [facility] puente 2022-08-29 00:00 glipizide [facility] Prim [facility] puente 2022-08-30 00:00 glipizide [facility] Prim [facility] puente 2022-08-31 00:00 glipizide [facility] Prim [facility] puente 2022-09-01 00:00 glipizide [facility] Prim [facility] C cindi 2022-09-02 00:00 glipizide [facility] Prim jaes [facility] c[facility] 2022-09-03 00:00 glipizide [facility] Prim [facility] C cindi 2022-09-04 00:00 glipizide [facility] Prim [facility] C cindi 2022-09-05 00:00 glipizide [facility] Prim [facility] C cindi 2022-09-06 00:00 glipizide [facility] Prim [facility] C cindi 2022-09-27 00:00 glipizide [facility] Prim [facility] C cindi 2022-09-28 00:00 glipizide [facility] Prim [facility] C cindi 2022-09-29 00:00 glipizide [facility] Prim [facility] C cindi 2022-09-30 00:00 glipizide [facility] Prim [facility] C cindi 2022-10-01 00:00 glipizide [facility] Prim [facility] C c[facility] 2022-09-27 00:00 metformin [facility] Prim [facility] C c[facility] 2022-07-17 00:00 MAGNESIUM OXIDE Walk-In Clinic Prim [...] jase [facility] C c[facility] 2022-08-29 00:00 MAGNESIUM OXIDE Walk[facility]In [facility] Prim [facility] C cindi 2022-08-30 00:00 MAGNESIUM OXIDE Walk[facility]In [facility] Prim [facility] C cindi 2022-08-31 00:00 MAGNESIUM OXIDE Walk[facility] Prim [facility] C cindi 2022-09-01 00:00 MAGNESIUM OXIDE Walk[facility] Prim [facility] C cindi 2022-09-02 00:00 MAGNESIUM OXIDE Walk[facility] Prim [facility] C cindi 2022-09-03 00:00 MAGNESIUM OXIDE Walk[facility] Prim [facility] C cindi 2022-09-04 00:00 MAGNESIUM OXIDE Walk[facility] Prim [facility] C cindi 2022-09-05 00:00 MAGNESIUM OXIDE Walk[facility] Prim [facility] C cindi 2022-09-06 00:00 MAGNESIUM OXIDE Walk[facility]In [facility] Prim [facility] C cindi 2022-09-27 00:00 MAGNESIUM OXIDE Walk-In [facility] Prim [facility] C cindi 2022-09-28 00:00 MAGNESIUM OXIDE Walk[facility]In [facility] Prim [facility] cindi 2022-09-29 00:00 MAGNESIUM OXIDE Walk[facility]In [facility] Prim [facility] C cindi 2022-09-30 00:00 MAGNESIUM OXIDE Walk[facility]In [facility] Prim [facility] C cindi 2022-10-01 00:00 MAGNESIUM OXIDE Walk[facility] Prim [facility] C cindi 2022-09-27 00:00 metformin [facility]In [facility] Prim [facility] cindi 2022-07-17 00:00 cyanocobalamin (vitamin b-12) Walk-In [facility] [...] [facility] cindi 2022-08-29 00:00 cyanocobalamin (vitamin b-12) [facility] cindi 2022-08-30 00:00 cyanocobalamin (vitamin b-12) [facility] cindi 2022-08-31 00:00 cyanocobalamin (vitamin b-12) [facility] cindi 2022-09-01 00:00 cyanocobalamin (vitamin b-12) [facility] cindi 2022-09-02 00:00 cyanocobalamin (vitamin b-12) [facility] pu[facility] 2022-09-03 00:00 cyanocobalamin (vitamin b-12) [facility] cindi 2022-09-04 00:00 cyanocobalamin (vitamin b-12) [facility] cindi 2022-09-05 00:00 cyanocobalamin (vitamin b-12) [facility] cindi 2022-09-06 00:00 cyanocobalamin (vitamin b-12) [facility] cindi 2022-09-27 00:00 cyanocobalamin (vitamin b-12) [facility] pu[facility] 2022-09-28 00:00 cyanocobalamin (vitamin b-12) [facility] cindi 2022-09-29 00:00 cyanocobalamin (vitamin b-12) [facility] c[facility] 2022-09-30 00:00 cyanocobalamin (vitamin b-12) [facility] c[facility] 2022-10-01 00:00 cyanocobalamin (vitamin b-12) [facility] c[facility] 2022-07-17 00:00 ASPIRIN [facility] Prim [facility] cindi 2022-07-18 00:00 ASPIRIN [facility] Prim [facility] pu[facility] 2022-07-25 00:00 ASPIRIN [facility] Prim [facility] C cindi 2022-07-26 00:00 ASPIRIN [facility] Prim [facility] C cindi 2022-08-06 00:00 ASPIRIN [facility] Prim [facility] C cindi 2022-08-29 00:00 ASPIRIN [facility] Prim [facility] C cindi 2022-08-30 00:00 ASPIRIN [facility] Prim [facility] C cindi 2022-08-31 00:00 ASPIRIN [facility] Prim [facility] C cindi 2022-09-01 00:00 ASPIRIN [facility] Prim [facility] 2022-09-02 00:00 ASPIRIN [facility] Prim [facility] C cindi 2022-09-03 00:00 ASPIRIN [facility] Prim [facility] C cindi 2022-09-04 00:00 ASPIRIN [facility] Prim [facility] C cindi 2022-09-05 00:00 ASPIRIN [facility] Prim [facility] C cindi 2022-09-06 00:00 ASPIRIN [facility] Prim [facility] C cindi 2022-09-27 00:00 ASPIRIN [facility] Prim [facility] C cindi 2022-09-28 00:00 ASPIRIN [facility] Prim [facility] C cindi 2022-09-29 00:00 ASPIRIN [facility] Prim [facility] C cindi 2022-09-30 00:00 ASPIRIN [facility] Prim [facility] 2022-10-01 00:00 ASPIRIN [facility] Prim [facility] pu[facility] 2022-07-17 00:00 cyanocobalamin (vitamin b-12) [facility] 2022-07-18 00:00 cyanocobalamin (vitamin b-12) [facility] 2022-07-25 00:00 cyanocobalamin (vitamin b-12) [facility] 2022-07-26 00:00 cyanocobalamin (vitamin b-12) [facility] 2022-08-06 00:00 cyanocobalamin (vitamin b-12) [facility] 2022-08-29 00:00 cyanocobalamin (vitamin b-12) [facility] 2022-08-30 00:00 cyanocobalamin (vitamin b-12) [facility] 2022-08-31 00:00 cyanocobalamin (vitamin b-12) [facility] 2022-09-01 00:00 cyanocobalamin (vitamin b-12) [facility] c[facility] 2022-09-02 00:00 cyanocobalamin (vitamin b-12) [facility] c[facility] 2022-09-03 00:00 cyanocobalamin (vitamin b-12) [facility] cindi 2022-09-04 00:00 cyanocobalamin (vitamin b-12) [facility] cyanocobalamin (vitamin b-12) [facility] cindi 2022-09-06 00:00 cyanocobalamin (vitamin b-12) [facility] c[facility] 2022-09-27 00:00 cyanocobalamin (vitamin b-12) [facility] c[facility] 2022-09-28 00:00 cyanocobalamin (vitamin b-12) [facility] 2022-09-29 00:00 cyanocobalamin (vitamin b-12) [facility] 2022-09-30 00:00 cyanocobalamin (vitamin b-12) [facility] 2022-10-01 00:00 cyanocobalamin (vitamin b-12) [facility] c[facility] 2022-07-17 00:00 CYANOCOBALAMIN Walk[facility]In [facility] Prim [facility] cindi 2022-07-18 00:00 CYANOCOBALAMIN Walk[facility] Prim [facility] cindi 2022-07-25 00:00 CYANOCOBALAMIN Walk[facility]In [facility] Prim [facility] cindi 2022-07-26 00:00 CYANOCOBALAMIN Walk[facility] Prim [facility] cindi 2022-08-06 00:00 CYANOCOBALAMIN Walk[facility]In [facility] Prim [facility] cindi 2022-08-29 00:00 CYANOCOBALAMIN Walk[facility] Prim [facility] cindi 2022-08-30 00:00 CYANOCOBALAMIN Walk[facility]In [facility] Prim [facility] C cindi 2022-08-31 00:00 CYANOCOBALAMIN Walk[facility]In [facility] Prim [facility] C c[facility] 2022-09-01 00:00 CYANOCOBALAMIN Walk[facility] Prim [facility] C cindi 2022-09-02 00:00 CYANOCOBALAMIN Walk[facility] Prim [facility] C cindi 2022-09-03 00:00 CYANOCOBALAMIN Walk[facility] Prim [facility] C cindi 2022-09-04 00:00 CYANOCOBALAMIN Walk[facility] Prim [facility] C cindi 2022-09-05 00:00 CYANOCOBALAMIN Walk[facility] Prim [facility] C c[facility] 2022-09-06 00:00 CYANOCOBALAMIN Walk[facility] Prim [facility] C c[facility] 2022-09-27 00:00 CYANOCOBALAMIN Walk[facility] Prim [facility] C cindi 2022-09-28 00:00 CYANOCOBALAMIN Walk[facility] Prim [facility] C cindi 2022-09-29 00:00 CYANOCOBALAMIN Walk[facility] Prim [facility] C cindi 2022-09-30 00:00 CYANOCOBALAMIN Walk[facility] Prim [facility] C cindi 2022-10-01 00:00 CYANOCOBALAMIN [facility] Prim [facility] C c[facility] 2022-07-17 00:00 FOLIC ACID Walk[facility]In [facility] Prim [...] [facility] C cindi 2022-08-29 00:00 FOLIC ACID [facility] Prim [facility] C cindi 2022-08-30 00:00 FOLIC ACID [facility] Prim [facility] C cindi 2022-08-31 00:00 FOLIC ACID [facility] Prim [facility] C cindi 2022-09-01 00:00 FOLIC ACID [facility] Prim [facility] C cindi 2022-09-02 00:00 FOLIC ACID Walk[facility] Prim [facility] C cindi 2022-09-03 00:00 FOLIC ACID Walk[facility] Prim [facility] C cindi 2022-09-04 00:00 FOLIC ACID Walk[facility] Prim [facility] C cindi 2022-09-05 00:00 FOLIC ACID Walk[facility] Prim [facility] C cindi 2022-09-06 00:00 FOLIC ACID Walk[facility] Prim [facility] C cindi 2022-09-27 00:00 FOLIC ACID Walk[facility] Prim [facility] C cindi 2022-09-28 00:00 FOLIC ACID Walk[facility] Prim [facility] C cindi 2022-09-29 00:00 FOLIC ACID Walk[facility] Prim [facility] C cindi 2022-09-30 00:00 FOLIC ACID Walk[facility] Prim [facility] C cindi 2022-10-01 00:00 FOLIC ACID [facility] Prim [facility] C cindi 2022-07-17 00:00 FUROSEMIDE Walk-In Clinic Prim jase [...] [facility] C cindi 2022-08-29 00:00 FUROSEMIDE [facility] Prim [facility] C cindi 2022-08-30 00:00 FUROSEMIDE [facility] Prim [facility] C cindi 2022-08-31 00:00 FUROSEMIDE [facility] Prim [facility] C cindi 2022-09-01 00:00 FUROSEMIDE [facility] Prim [facility] C cindi 2022-09-02 00:00 FUROSEMIDE [facility] Prim [facility] C cindi 2022-09-03 00:00 FUROSEMIDE [facility] Prim [facility] C cindi 2022-09-04 00:00 FUROSEMIDE [facility] Prim [facility] C cindi 2022-09-05 00:00 FUROSEMIDE Walk[facility] Prim [facility] C cindi 2022-09-06 00:00 FUROSEMIDE [facility] Prim [facility] C cindi 2022-09-27 00:00 FUROSEMIDE [facility] Prim [facility] C cindi 2022-09-28 00:00 FUROSEMIDE [facility] Prim [facility] C cindi 2022-09-29 00:00 FUROSEMIDE [facility] Prim [facility] C cindi 2022-09-30 00:00 FUROSEMIDE [facility] Prim [facility] C icndi 2022-10-01 00:00 FUROSEMIDE [facility] Prim [facility] C cindi 2022-07-17 00:00 gabapentin Walk-In Clinic Prim jase [...] [facility] C cindi 2022-08-29 00:00 gabapentin Walk[facility]In [facility] Prim [facility] C cindi 2022-08-30 00:00 gabapentin Walk[facility]In [facility] Prim [facility] C cindi 2022-08-31 00:00 gabapentin Walk[facility]In [facility] Prim [facility] C cindi 2022-09-01 00:00 gabapentin Walk[facility]In [facility] Prim [facility] C cindi 2022-09-02 00:00 gabapentin Walk[facility] Prim [facility] C cindi 2022-09-03 00:00 gabapentin Walk[facility] Prim [facility] C cindi 2022-09-04 00:00 gabapentin Walk[facility] Prim [facility] C cindi 2022-09-05 00:00 gabapentin Walk[facility] Prim [facility] C cindi 2022-09-06 00:00 gabapentin Walk[facility] Prim [facility] C cindi 2022-09-27 00:00 gabapentin Walk[facility] Prim [facility] C cindi 2022-09-28 00:00 gabapentin Walk[facility] Prim [facility] C cindi 2022-09-29 00:00 gabapentin Walk[facility] Prim [facility] C cindi 2022-09-30 00:00 gabapentin Walk[facility] Prim [facility] C cindi 2022-10-01 00:00 gabapentin Walk[facility]In [facility] Prim [facility] C cindi 2022-07-17 00:00 glipizide Walk-In Clinic Prim jase [...] [facility] C cindi 2022-08-29 00:00 glipizide Walk[facility] Prim [facility] C cindi 2022-08-30 00:00 glipizide [facility] Prim [facility] C cindi 2022-08-31 00:00 glipizide Walk[facility] Prim [facility] C cindi 2022-09-01 00:00 glipizide Walk-[facility] Prim [facility] C cindi 2022-09-02 00:00 glipizide Walk-[facility] Prim [facility] C cindi 2022-09-03 00:00 glipizide Walk[facility] Prim [facility] C cindi 2022-09-04 00:00 glipizide Walk-[facility] Prim [facility] C cindi 2022-09-05 00:00 glipizide Walk-[facility] Prim [facility] C cindi 2022-09-06 00:00 glipizide [facility]In [facility] Prim [facility] C cindi 2022-09-27 00:00 glipizide [facility] Prim [facility] C cindi 2022-09-28 00:00 glipizide [facility] Prim [facility] C cindi 2022-09-29 00:00 glipizide Walk[facility] Prim [facility] C cindi 2022-09-30 00:00 glipizide [facility]In [facility] Prim [facility] C cindi 2022-10-01 00:00 glipizide Walk[facility]In [facility] Prim [facility] C cindi 2022-07-17 00:00 [facility]apine [facility] [...] [facility] 2022-08-29 00:00 [facility]ta[facility]apine [facility] 2022-08-30 00:00 mirtazapine [facility] 2022-08-31 00:00 mirtazapine [facility] 2022-09-01 00:00 mirtazapine [facility] 2022-09-02 00:00 mirtazapine [facility] 2022-09-03 00:00 mirtazapine [facility] 2022-09-04 00:00 mirtazapine [facility] 2022-09-05 00:00 mirtazapine [facility] 2022-09-06 00:00 mirtazapine [facility] 2022-09-27 00:00 mirtazapine [facility] 2022-09-28 00:00 mirtazapine [facility] 2022-09-29 00:00 mirtazapine [facility] 2022-09-30 00:00 mirtazapine [facility] 2022-10-01 00:00 mirtazapine [facility] Prim jaes [facility] 2022-07-17 00:00 pantoprazole [facility] Prim jase [...] [facility] 2022-08-29 00:00 pantoprazole [facility] 2022-08-30 00:00 pantoprazole [facility] 2022-08-31 00:00 pantoprazole [facility] 2022-09-01 00:00 pantoprazole [facility] 2022-09-02 00:00 pantoprazole [facility] 2022-09-03 00:00 pantoprazole [facility] 2022-09-04 00:00 pantoprazole [facility] 2022-09-05 00:00 pantoprazole [facility] 2022-09-06 00:00 pantoprazole [facility] 2022-09-27 00:00 pantoprazole [facility] 2022-09-28 00:00 pantoprazole [facility] 2022-09-29 00:00 pantoprazole [facility] 2022-09-30 00:00 pantoprazole [facility] 2022-10-01 00:00 pantoprazole [facility] 2022-07-17 00:00 metoprolol succinate [facility] Pr [...] [facility] 2022-08-29 00:00 metoprolol succinate [facility] Pr [facility] 2022-08-30 00:00 metoprolol succinate [facility] Pr [facility] 2022-08-31 00:00 metoprolol succinate [facility] Pr [facility] 2022-09-01 00:00 metoprolol succinate [facility] Pr [facility] 2022-09-02 00:00 metoprolol succinate [facility] Pr [facility] 2022-09-03 00:00 metoprolol succinate [facility] Pr [facility] 2022-09-04 00:00 metoprolol succinate [facility] Pr [facility] 2022-09-05 00:00 metoprolol succinate [facility] Pr [facility] 2022-09-06 00:00 metoprolol succinate [facility] Pr [facility] 2022-09-27 00:00 metoprolol succinate [facility] Pr [facility] 2022-09-28 00:00 metoprolol succinate [facility] Pr [facility] 2022-09-29 00:00 metoprolol succinate [facility] Pr [facility] 2022-09-30 00:00 metoprolol succinate [facility] Pr [facility] 2022-10-01 00:00 metoprolol succinate [facility] Pr [facility] 2022-09-27 00:00 valsartan [facility] 2022-07-17 00:00 LOSARTAN POTASSIUM [facility] Prim [...] [facility] 2022-08-29 00:00 LOSARTAN POTASSIUM [facility] 2022-08-30 00:00 LOSARTAN POTASSIUM [facility] 2022-08-31 00:00 LOSARTAN POTASSIUM [facility] 2022-09-01 00:00 LOSARTAN POTASSIUM [facility] 2022-09-02 00:00 LOSARTAN POTASSIUM [facility] 2022-09-03 00:00 LOSARTAN POTASSIUM [facility] 2022-09-04 00:00 LOSARTAN POTASSIUM [facility] 2022-09-05 00:00 LOSARTAN POTASSIUM [facility] 2022-09-06 00:00 LOSARTAN POTASSIUM [facility] 2022-09-27 00:00 LOSARTAN POTASSIUM [facility] 2022-09-28 00:00 LOSARTAN POTASSIUM [facility] 2022-09-29 00:00 LOSARTAN POTASSIUM [facility] 2022-09-30 00:00 LOSARTAN POTASSIUM [facility] 2022-10-01 00:00 LOSARTAN POTASSIUM [facility] 2022-09-27 00:00 valsartan [facility] 2022-07-17 00:00 FUROSEMIDE [facility] Prim jase [...] [facility] 2022-08-29 00:00 FUROSEMIDE [facility] 2022-08-30 00:00 FUROSEMIDE [facility] 2022-08-31 00:00 FUROSEMIDE [facility] 2022-09-01 00:00 FUROSEMIDE [facility] 2022-09-02 00:00 FUROSEMIDE [facility] 2022-09-03 00:00 FUROSEMIDE [facility] 2022-09-04 00:00 FUROSEMIDE [facility] 2022-09-05 00:00 FUROSEMIDE [facility] 2022-09-06 00:00 FUROSEMIDE [facility] 2022-09-27 00:00 FUROSEMIDE [facility] 2022-09-28 00:00 FUROSEMIDE [facility] 2022-09-29 00:00 FUROSEMIDE [facility] 2022-09-30 00:00 FUROSEMIDE [facility] 2022-10-01 00:00 FUROSEMIDE [facility] 2022-07-17 00:00 ASPIRIN [facility] Prim jase [...] [facility] 2022-08-29 00:00 ASPIRIN [facility] 2022-08-30 00:00 ASPIRIN [facility] 2022-08-31 00:00 ASPIRIN [facility] 2022-09-01 00:00 ASPIRIN [facility] 2022-09-02 00:00 ASPIRIN [facility] 2022-09-03 00:00 ASPIRIN [facility] 2022-09-04 00:00 ASPIRIN [facility] 2022-09-05 00:00 ASPIRIN [facility] 2022-09-06 00:00 ASPIRIN [facility] 2022-09-27 00:00 ASPIRIN [facility] 2022-09-28 00:00 ASPIRIN [facility] 2022-09-29 00:00 ASPIRIN [facility] 2022-09-30 00:00 ASPIRIN [facility] 2022-10-01 00:00 ASPIRIN [facility] 2022-09-27 00:00 atorvastatin [facility] 2022-07-17 00:00 phenazopyridine [facility] 2022-07-18 00:00 phenazopyridine [facility] 2022-07-25 00:00 phenazopyridine [facility] 2022-07-26 00:00 phenazopyridine [facility] Humza puente 2022-08-06 00:00 phenazopyridine [facility] 2022-08-29 00:00 phenazopyridine [facility] 2022-08-30 00:00 phenazopyridine [facility] 2022-08-31 00:00 phenazopyridine [facility] 2022-09-01 00:00 phenazopyridine [facility] 2022-09-02 00:00 phenazopyridine [facility] 2022-09-03 00:00 phenazopyridine [facility] 2022-09-04 00:00 phenazopyridine [facility] 2022-09-05 00:00 phenazopyridine [facility] 2022-09-06 00:00 phenazopyridine [facility] 2022-09-27 00:00 phenazopyridine [facility] 2022-09-28 00:00 phenazopyridine [facility] 2022-09-29 00:00 phenazopyridine [facility] 2022-09-30 00:00 phenazopyridine [facility] 2022-10-01 00:00 phenazopyridine [facility] 2022-07-17 00:00 mirtazapine [facility] Prim jase [...] [facility] 2022-08-29 00:00 mirtazapine [facility] 2022-08-30 00:00 mirtazapine [facility] 2022-08-31 00:00 mirtazapine [facility] 2022-09-01 00:00 mirtazapine [facility] 2022-09-02 00:00 mirtazapine [facility] 2022-09-03 00:00 mirtazapine [facility] cinid 2022-09-04 00:00 mirtazapine [facility] 2022-09-05 00:00 mirtazapine [facility] 2022-09-06 00:00 mirtazapine [facility] 2022-09-27 00:00 mirtazapine [facility] 2022-09-28 00:00 mirtazapine [facility] 2022-09-29 00:00 mirtazapine [facility] 2022-09-30 00:00 mirtazapine [facility] 2022-10-01 00:00 mirtazapine [facility] 2022-07-17 00:00 gabapentin [facility] Prim jase [...] [facility] 2022-08-29 00:00 gabapentin [facility] 2022-08-30 00:00 gabapentin [facility] 2022-08-31 00:00 gabapentin [facility] 2022-09-01 00:00 gabapentin [facility] 2022-09-02 00:00 gabapentin [facility] 2022-09-03 00:00 gabapentin [facility] 2022-09-04 00:00 gabapentin [facility] 2022-09-05 00:00 gabapentin [facility] 2022-09-06 00:00 gabapentin [facility] 2022-09-27 00:00 gabapentin [facility] 2022-09-28 00:00 gabapentin [facility] 2022-09-29 00:00 gabapentin [facility] 2022-09-30 00:00 gabapentin [facility] 2022-10-01 00:00 gabapentin [facility] 2022-07-17 00:00 docusate sodium [facility] Prim [...] [facility] 2022-08-29 00:00 docusate sodium [facility] 2022-08-30 00:00 docusate sodium [facility] 2022-08-31 00:00 docusate sodium [facility] 2022-09-01 00:00 docusate sodium [facility] 2022-09-02 00:00 docusate sodium [facility] 2022-09-03 00:00 docusate sodium [facility] 2022-09-04 00:00 docusate sodium [facility] 2022-09-05 00:00 docusate sodium [facility] 2022-09-06 00:00 docusate sodium [facility] 2022-09-27 00:00 docusate sodium [facility] 2022-09-28 00:00 docusate sodium [facility] 2022-09-29 00:00 docusate sodium [facility] 2022-09-30 00:00 docusate sodium [facility] 2022-10-01 00:00 docusate sodium [facility] 2022-09-27 00:00 atorvastatin [facility] 2022-07-17 00:00 MAGNESIUM OXIDE [facility] Prim [...] [facility] 2022-08-29 00:00 MAGNESIUM OXIDE [facility] 2022-08-30 00:00 MAGNESIUM OXIDE [facility] 2022-08-31 00:00 MAGNESIUM OXIDE [facility] 2022-09-01 00:00 MAGNESIUM OXIDE [facility] 2022-09-02 00:00 MAGNESIUM OXIDE [facility] 2022-09-03 00:00 MAGNESIUM OXIDE [facility] 2022-09-04 00:00 MAGNESIUM OXIDE [facility] 2022-09-05 00:00 MAGNESIUM OXIDE [facility] 2022-09-06 00:00 MAGNESIUM OXIDE [facility] 2022-09-27 00:00 MAGNESIUM OXIDE [facility] 2022-09-28 00:00 MAGNESIUM OXIDE [facility] 2022-09-29 00:00 MAGNESIUM OXIDE [facility] 2022-09-30 00:00 MAGNESIUM OXIDE [facility] 2022-10-01 00:00 MAGNESIUM OXIDE [facility] 2022-07-17 00:00 pantoprazole [facility] Prim jase [...] [facility] 2022-08-29 00:00 pantoprazole [facility] 2022-08-30 00:00 pantoprazole [facility] 2022-08-31 00:00 pantoprazole [facility] 2022-09-01 00:00 pantoprazole [facility] 2022-09-02 00:00 pantoprazole [facility] 2022-09-03 00:00 pantoprazole [facility] 2022-09-04 00:00 pantoprazole [facility] 2022-09-05 00:00 pantoprazole [facility] 2022-09-06 00:00 pantoprazole [facility] 2022-09-27 00:00 pantoprazole [facility] 2022-09-28 00:00 pantoprazole [facility] 2022-09-29 00:00 pantoprazole [facility] 2022-09-30 00:00 pantoprazole [facility] 2022-10-01 00:00 pantoprazole [facility] 2022-07-17 00:00 peg [id number]-ulfwngnz [facility] 2022-07-18 00:00 peg 144-omrfvxmvjcsz-nooaekvn [facility] puente 2022-07-25 00:00 peg 215-ercjdwbxspqw-ifvlbfve [facility] 2022-07-26 00:00 peg [id number]-puqqcwwl [facility] pu[facility] 2022-08-06 00:00 peg 473-btmqkktyqxrg-dajwixhn [facility] 2022-08-29 00:00 peg [id number]-ndcbfcct [facility] 2022-08-30 00:00 peg [id number]-ldjciwbk [facility] 2022-08-31 00:00 peg [id number]-ynljdztv [facility] 2022-09-01 00:00 peg 472-duripizwlzbw-sxgqemrv [facility] 2022-09-02 00:00 peg [id number]-rjauoamjisit-rpjzbqsn [facility] 2022-09-03 00:00 peg 528-xgexnwuosrbw-ofhvkxig [facility] 2022-09-04 00:00 peg [id number]-booqbixvfsiw-sbyszezr [facility] 2022-09-05 00:00 peg 102-ilfwynswaqub-exbytaem [facility] 2022-09-06 00:00 peg 440-rqknnhpyaxuh-tdyoixfx [facility] 2022-09-27 00:00 peg 724-gctkuziuwhvs-pkusgiuw [facility] 2022-09-28 00:00 peg [id number]-byqmsmrnpcrn-dbncqska [facility] 2022-09-29 00:00 peg [id number]-vhpreloongmw-svzkmvgb [facility] 2022-09-30 00:00 peg 539-peffiqmjhwyo-vqggnggc [facility] 2022-10-01 00:00 peg [id number]-gzkysdevfyja-ugdztvtg [facility] 2022-09-27 00:00 valsartan [facility] 2022-07-17 00:00 docusate sodium [facility] Prim [...] [facility] 2022-08-29 00:00 docusate sodium [facility] 2022-08-30 00:00 docusate sodium [facility] 2022-08-31 00:00 docusate sodium [facility] 2022-09-01 00:00 docusate sodium [facility] 2022-09-02 00:00 docusate sodium [facility] 2022-09-03 00:00 docusate sodium [facility] 2022-09-04 00:00 docusate sodium [facility] 2022-09-05 00:00 docusate sodium [facility] 2022-09-06 00:00 docusate sodium [facility] 2022-09-27 00:00 docusate sodium [facility] 2022-09-28 00:00 docusate sodium [facility] 2022-09-29 00:00 docusate sodium [facility] 2022-09-30 00:00 docusate sodium [facility] 2022-10-01 00:00 docusate sodium [facility] 2022-07-17 00:00 CLOPIDOGREL BISULFATE Walk[facility] P [...] [facility] 2022-08-29 00:00 CLOPIDOGREL BISULFATE [facility] P [facility] 2022-08-30 00:00 CLOPIDOGREL BISULFATE [facility] P [facility] 2022-08-31 00:00 CLOPIDOGREL BISULFATE [facility] P [facility] 2022-09-01 00:00 CLOPIDOGREL BISULFATE [facility] P [facility] 2022-09-02 00:00 CLOPIDOGREL BISULFATE [facility] P [facility] 2022-09-03 00:00 CLOPIDOGREL BISULFATE [facility] P [facility] 2022-09-04 00:00 CLOPIDOGREL BISULFATE [facility] P [facility] 2022-09-05 00:00 CLOPIDOGREL BISULFATE [facility] P [facility] 2022-09-06 00:00 CLOPIDOGREL BISULFATE [facility] P [facility] 2022-09-27 00:00 CLOPIDOGREL BISULFATE [facility] P [facility] 2022-09-28 00:00 CLOPIDOGREL BISULFATE [facility] P [facility] 2022-09-29 00:00 CLOPIDOGREL BISULFATE [facility] P [facility] 2022-09-30 00:00 CLOPIDOGREL BISULFATE [facility] P [facility] 2022-10-01 00:00 CLOPIDOGREL BISULFATE [facility] P [facility] 2022-07-17 00:00 CYANOCOBALAMIN [facility] Prim jase [...] [facility] 2022-08-29 00:00 CYANOCOBALAMIN [facility] 2022-08-30 00:00 CYANOCOBALAMIN [facility] 2022-08-31 00:00 CYANOCOBALAMIN [facility] 2022-09-01 00:00 CYANOCOBALAMIN [facility] 2022-09-02 00:00 CYANOCOBALAMIN [facility] 2022-09-03 00:00 CYANOCOBALAMIN [facility] 2022-09-04 00:00 CYANOCOBALAMIN [facility] 2022-09-05 00:00 CYANOCOBALAMIN [facility] 2022-09-06 00:00 CYANOCOBALAMIN [facility] 2022-09-27 00:00 CYANOCOBALAMIN [facility] 2022-09-28 00:00 CYANOCOBALAMIN [facility] 2022-09-29 00:00 CYANOCOBALAMIN [facility] 2022-09-30 00:00 CYANOCOBALAMIN [facility] 2022-10-01 00:00 CYANOCOBALAMIN [facility] 2022-07-17 00:00 phenazopyridine [facility] Prim jase [...] [facility] 2022-08-29 00:00 phenazopyridine [facility] 2022-08-30 00:00 phenazopyridine [facility] 2022-08-31 00:00 phenazopyridine [facility] 2022-09-01 00:00 phenazopyridine [facility] 2022-09-02 00:00 phenazopyridine [facility] 2022-09-03 00:00 phenazopyridine [facility] 2022-09-04 00:00 phenazopyridine [facility] 2022-09-05 00:00 phenazopyridine [facility] 2022-09-06 00:00 phenazopyridine [facility] 2022-09-27 00:00 phenazopyridine [facility] 2022-09-28 00:00 phenazopyridine [facility] 2022-09-29 00:00 phenazopyridine [facility] 2022-09-30 00:00 phenazopyridine [facility] 2022-10-01 00:00 phenazopyridine [facility] 2022-07-17 00:00 DIAZEPAM [facility] Prim [facility] [...] [facility] 2022-08-29 00:00 DIAZEPAM [facility] 2022-08-30 00:00 DIAZEPAM [facility] 2022-08-31 00:00 DIAZEPAM [facility] 2022-09-01 00:00 DIAZEPAM [facility] 2022-09-02 00:00 DIAZEPAM [facility] 2022-09-03 00:00 DIAZEPAM [facility] 2022-09-04 00:00 DIAZEPAM [facility] 2022-09-05 00:00 DIAZEPAM [facility] 2022-09-06 00:00 DIAZEPAM [facility] 2022-09-27 00:00 DIAZEPAM [facility] 2022-09-28 00:00 DIAZEPAM [facility] 2022-09-29 00:00 DIAZEPAM [facility] 2022-09-30 00:00 DIAZEPAM [facility] 2022-10-01 00:00 DIAZEPAM [facility] 2022-07-17 00:00 flash glucose sensor [facility] [...] [facility] 2022-08-29 00:00 flash glucose sensor [facility] 2022-08-30 00:00 flash glucose sensor [facility] 2022-08-31 00:00 flash glucose sensor [facility] 2022-09-01 00:00 flash glucose sensor [facility] 2022-09-02 00:00 flash glucose sensor [facility] 2022-09-03 00:00 flash glucose sensor [facility] 2022-09-04 00:00 flash glucose sensor [facility] 2022-09-05 00:00 flash glucose sensor [facility] 2022-09-06 00:00 flash glucose sensor [facility] 2022-09-27 00:00 flash glucose sensor [facility] 2022-09-28 00:00 flash glucose sensor [facility] 2022-09-29 00:00 flash glucose sensor [facility] 2022-09-30 00:00 flash glucose sensor [facility] 2022-10-01 00:00 flash glucose sensor [facility] 2022-07-17 00:00 flash glucose scanning reader Walk[facility] [...] [facility] 2022-08-29 00:00 flash glucose scanning reader [facility] 2022-08-30 00:00 flash glucose scanning reader [facility] 2022-08-31 00:00 flash glucose scanning reader [facility] 2022-09-01 00:00 flash glucose scanning reader [facility] 2022-09-02 00:00 flash glucose scanning reader [facility] 2022-09-03 00:00 flash glucose scanning reader [facility] 2022-09-04 00:00 flash glucose scanning reader [facility] 2022-09-05 00:00 flash glucose scanning reader [facility] 2022-09-06 00:00 flash glucose scanning reader [facility] 2022-09-27 00:00 flash glucose scanning reader [facility] 2022-09-28 00:00 flash glucose scanning reader [facility] 2022-09-29 00:00 flash glucose scanning reader [facility] 2022-09-30 00:00 flash glucose scanning reader [facility] 2022-10-01 00:00 flash glucose scanning reader [facility] 2022-09-27 00:00 metformin [facility] 2022-07-17 00:00 mirtazapine [facility] Humza puente 2022-07-18 00:00 mirtazapine [facility] 2022-07-25 00:00 mirtazapine [facility] 2022-07-26 00:00 mirtazapine [facility] 2022-08-06 00:00 mirtazapine [facility] 2022-08-29 00:00 mirtazapine [facility] 2022-08-30 00:00 mirtazapine [facility] 2022-08-31 00:00 mirtazapine [facility] 2022-09-01 00:00 mirtazapine [facility] 2022-09-02 00:00 mirtazapine [facility] 2022-09-03 00:00 mirtazapine [facility] 2022-09-04 00:00 mirtazapine [facility] 2022-09-05 00:00 mirtazapine [facility] 2022-09-06 00:00 mirtazapine [facility] 2022-09-27 00:00 mirtazapine [facility] 2022-09-28 00:00 mirtazapine [facility] 2022-09-29 00:00 mirtazapine [facility] 2022-09-30 00:00 mirtazapine [facility] 2022-10-01 00:00 mirtazapine [facility] 2022-07-17 00:00 LOSARTAN POTASSIUM [facility] Prim [...] [facility] 2022-08-29 00:00 LOSART[place] POTASSIUM [facility] 2022-08-30 00:00 LOSART[place] POTASSIUM [facility] 2022-08-31 00:00 [place] POTASSIUM [facility] 2022-09-01 00:00 [place] POTASSIUM [facility] 2022-09-02 00:00 [place] POTASSIUM [facility] 2022-09-03 00:00 [place] POTASSIUM [facility] 2022-09-04 00:00 [place] POTASSIUM [facility] 2022-09-05 00:00 [place] POTASSIUM [facility] 2022-09-06 00:00 [place] POTASSIUM [facility] 2022-09-27 00:00 [place] POTASSIUM [facility] 2022-09-28 00:00 [place] POTASSIUM [facility] 2022-09-29 00:00 [place] POTASSIUM [facility] 2022-09-30 00:00 [place] POTASSIUM [facility] 2022-10-01 00:00 [place] POTASSIUM [facility] 2022-07-17 00:00 MAGNESIUM OXIDE [facility] Prim [...] [facility] 2022-08-29 00:00 MAGNESIUM OXIDE [facility] 2022-08-30 00:00 MAGNESIUM OXIDE [facility] 2022-08-31 00:00 MAGNESIUM OXIDE [facility] 2022-09-01 00:00 MAGNESIUM OXIDE [facility] 2022-09-02 00:00 MAGNESIUM OXIDE [facility] 2022-09-03 00:00 MAGNESIUM OXIDE [facility] 2022-09-04 00:00 MAGNESIUM OXIDE [facility] 2022-09-05 00:00 MAGNESIUM OXIDE [facility] 2022-09-06 00:00 MAGNESIUM OXIDE [facility] 2022-09-27 00:00 MAGNESIUM OXIDE [facility] 2022-09-28 00:00 MAGNESIUM OXIDE [facility] 2022-09-29 00:00 MAGNESIUM OXIDE [facility] 2022-09-30 00:00 MAGNESIUM OXIDE [facility] 2022-10-01 00:00 MAGNESIUM OXIDE [facility] 2022-07-17 00:00 gabapentin [facility] [...] [facility] 2022-08-29 00:00 gabapentin [facility] 2022-08-30 00:00 gabapentin [facility] 2022-08-31 00:00 gabapentin [facility] 2022-09-01 00:00 gabapentin [facility] 2022-09-02 00:00 gabapentin [facility] 2022-09-03 00:00 gabapentin [facility] 2022-09-04 00:00 gabapentin [facility] 2022-09-05 00:00 gabapentin [facility] 2022-09-06 00:00 gabapentin [facility] 2022-09-27 00:00 gabapentin [facility] 2022-09-28 00:00 gabapentin [facility] 2022-09-29 00:00 gabapentin [facility] 2022-09-30 00:00 gabapentin [facility] 2022-10-01 00:00 gabapentin [facility] 2022-07-17 00:00 pantoprazole [facility] [...] [facility] 2022-08-29 00:00 pantoprazole [facility] 2022-08-30 00:00 pantoprazole [facility] 2022-08-31 00:00 pantoprazole [facility] 2022-09-01 00:00 pantoprazole [facility] 2022-09-02 00:00 pantoprazole [facility] 2022-09-03 00:00 pantoprazole [facility] 2022-09-04 00:00 pantoprazole [facility] 2022-09-05 00:00 pantoprazole [facility] 2022-09-06 00:00 pantoprazole [facility] 2022-09-27 00:00 pantoprazole [facility] 2022-09-28 00:00 pantoprazole [facility] cnidi 2022-09-29 00:00 pantoprazole [facility] 2022-09-30 00:00 pantoprazole [facility] 2022-10-01 00:00 pantoprazole [facility] 2022-09-27 00:00 atorvastatin [facility] 2022-07-17 00:00 pantoprazole [facility] [...] [facility] 2022-08-29 00:00 pantoprazole [facility] 2022-08-30 00:00 pantoprazole [facility] 2022-08-31 00:00 pantoprazole [facility] 2022-09-01 00:00 pantoprazole [facility] 2022-09-02 00:00 pantoprazole [facility] 2022-09-03 00:00 pantoprazole [facility] 2022-09-04 00:00 pantoprazole [facility] 2022-09-05 00:00 pantoprazole [facility] 2022-09-06 00:00 pantoprazole [facility] 2022-09-27 00:00 pantoprazole [facility] 2022-09-28 00:00 pantoprazole [facility] 2022-09-29 00:00 pantoprazole [facility] 2022-09-30 00:00 pantoprazole [facility] 2022-10-01 00:00 pantoprazole [facility] 2022-07-17 00:00 POTASSIUM CHLORIDE [facility] Prim [...] [facility] 2022-08-29 00:00 POTASSIUM CHLORIDE [facility] 2022-08-30 00:00 POTASSIUM CHLORIDE [facility] 2022-08-31 00:00 POTASSIUM CHLORIDE [facility] 2022-09-01 00:00 POTASSIUM CHLORIDE [facility] 2022-09-02 00:00 POTASSIUM CHLORIDE [facility] 2022-09-03 00:00 POTASSIUM CHLORIDE [facility] 2022-09-04 00:00 POTASSIUM CHLORIDE [facility] 2022-09-05 00:00 POTASSIUM CHLORIDE [facility] 2022-09-06 00:00 POTASSIUM CHLORIDE [facility] 2022-09-27 00:00 POTASSIUM CHLORIDE [facility] 2022-09-28 00:00 POTASSIUM CHLORIDE [facility] 2022-09-29 00:00 POTASSIUM CHLORIDE [facility] 2022-09-30 00:00 POTASSIUM CHLORIDE [facility] 2022-10-01 00:00 POTASSIUM CHLORIDE [facility] 2022-09-27 00:00 atorvastatin [facility] 2022-07-17 00:00 CLOPIDOGREL BISULFATE [facility] P [...] [facility] 2022-08-29 00:00 CLOPIDOGREL BISULFATE [facility] P [facility] 2022-08-30 00:00 CLOPIDOGREL BISULFATE [facility] P [facility] 2022-08-31 00:00 CLOPIDOGREL BISULFATE [facility] P [facility] 2022-09-01 00:00 CLOPIDOGREL BISULFATE [facility] P [facility] 2022-09-02 00:00 CLOPIDOGREL BISULFATE [facility] P [facility] 2022-09-03 00:00 CLOPIDOGREL BISULFATE [facility] P [facility] 2022-09-04 00:00 CLOPIDOGREL BISULFATE [facility] P [facility] 2022-09-05 00:00 CLOPIDOGREL BISULFATE [facility] P [facility] 2022-09-06 00:00 CLOPIDOGREL BISULFATE [facility] P [facility] 2022-09-27 00:00 CLOPIDOGREL BISULFATE [facility] P [facility] 2022-09-28 00:00 CLOPIDOGREL BISULFATE [facility] P [facility] 2022-09-29 00:00 CLOPIDOGREL BISULFATE [facility] P [facility] 2022-09-30 00:00 CLOPIDOGREL BISULFATE [facility] P [facility] 2022-10-01 00:00 CLOPIDOGREL BISULFATE [facility] P [facility] 2022-07-17 00:00 ASPIRIN [facility] Prim [facility] [...] [facility] 2022-08-29 00:00 ASPIRIN [facility] 2022-08-30 00:00 ASPIRIN [facility] 2022-08-31 00:00 ASPIRIN [facility] 2022-09-01 00:00 ASPIRIN [facility] 2022-09-02 00:00 ASPIRIN [facility] 2022-09-03 00:00 ASPIRIN [facility] 2022-09-04 00:00 ASPIRIN [facility] 2022-09-05 00:00 ASPIRIN [facility] 2022-09-06 00:00 ASPIRIN [facility] 2022-09-27 00:00 ASPIRIN [facility] 2022-09-28 00:00 ASPIRIN [facility] 2022-09-29 00:00 ASPIRIN [facility] 2022-09-30 00:00 ASPIRIN [facility] 2022-10-01 00:00 ASPIRIN [facility] 2022-07-17 00:00 DIAZEPAM [facility] Prim [facility] [...] [facility] 2022-08-29 00:00 DIAZEPAM [facility] 2022-08-30 00:00 DIAZEPAM [facility] 2022-08-31 00:00 DIAZEPAM [facility] 2022-09-01 00:00 DIAZEPAM [facility] 2022-09-02 00:00 DIAZEPAM [facility] 2022-09-03 00:00 DIAZEPAM [facility] 2022-09-04 00:00 DIAZEPAM [facility] 2022-09-05 00:00 DIAZEPAM [facility] 2022-09-06 00:00 DIAZEPAM [facility] 2022-09-27 00:00 DIAZEPAM [facility] 2022-09-28 00:00 DIAZEPAM [facility] 2022-09-29 00:00 DIAZEPAM [facility] 2022-09-30 00:00 DIAZEPAM [facility] 2022-10-01 00:00 DIAZEPAM [facility] 2022-07-17 00:00 POTASSIUM CHLORIDE [facility] Prim [...] [facility] 2022-08-29 00:00 POTASSIUM CHLORIDE [facility] 2022-08-30 00:00 POTASSIUM CHLORIDE [facility] 2022-08-31 00:00 POTASSIUM CHLORIDE [facility] 2022-09-01 00:00 POTASSIUM CHLORIDE [facility] 2022-09-02 00:00 POTASSIUM CHLORIDE [facility] 2022-09-03 00:00 POTASSIUM CHLORIDE [facility] 2022-09-04 00:00 POTASSIUM CHLORIDE [facility] 2022-09-05 00:00 POTASSIUM CHLORIDE [facility] 2022-09-06 00:00 POTASSIUM CHLORIDE [facility] 2022-09-27 00:00 POTASSIUM CHLORIDE [facility] 2022-09-28 00:00 POTASSIUM CHLORIDE [facility] 2022-09-29 00:00 POTASSIUM CHLORIDE [facility] 2022-09-30 00:00 POTASSIUM CHLORIDE [facility] 2022-10-01 00:00 POTASSIUM CHLORIDE [facility] 2022-07-17 00:00 docusate sodium [facility] Prim [...] [facility] 2022-08-29 00:00 docusate sodium [facility] 2022-08-30 00:00 docusate sodium [facility] 2022-08-31 00:00 docusate sodium [facility] 2022-09-01 00:00 docusate sodium [facility] 2022-09-02 00:00 docusate sodium [facility] 2022-09-03 00:00 docusate sodium [facility] 2022-09-04 00:00 docusate sodium [facility] 2022-09-05 00:00 docusate sodium [facility] 2022-09-06 00:00 docusate sodium [facility] 2022-09-27 00:00 docusate sodium [facility] 2022-09-28 00:00 docusate sodium [facility] 2022-09-29 00:00 docusate sodium [facility] 2022-09-30 00:00 docusate sodium [facility] 2022-10-01 00:00 docusate sodium [facility] 2022-07-17 00:00 acetaminophen [facility] [...] [facility] 2022-08-29 00:00 acetaminophen [facility] 2022-08-30 00:00 acetaminophen [facility] 2022-08-31 00:00 acetaminophen [facility] 2022-09-01 00:00 acetaminophen [facility] 2022-09-02 00:00 acetaminophen [facility] 2022-09-03 00:00 acetaminophen [facility] 2022-09-04 00:00 acetaminophen [facility] 2022-09-05 00:00 acetaminophen [facility] 2022-09-06 00:00 acetaminophen [facility] 2022-09-27 00:00 acetaminophen [facility] 2022-09-28 00:00 acetaminophen [facility] 2022-09-29 00:00 acetaminophen [facility] 2022-09-30 00:00 acetaminophen [facility] 2022-10-01 00:00 acetaminophen [facility] 2022-07-17 00:00 metoprolol succinate [facility] Pr [...] [facility] 2022-08-29 00:00 metoprolol succinate [facility] Pr [facility] 2022-08-30 00:00 metoprolol succinate [facility] 2022-08-31 00:00 metoprolol succinate [facility] 2022-09-01 00:00 metoprolol succinate [facility] 2022-09-02 00:00 metoprolol succinate [facility] 2022-09-03 00:00 metoprolol succinate [facility] 2022-09-04 00:00 metoprolol succinate [facility] 2022-09-05 00:00 metoprolol succinate [facility] c[facility] 2022-09-06 00:00 metoprolol succinate [facility] 2022-09-27 00:00 metoprolol succinate [facility]za cindi 2022-09-28 00:00 metoprolol succinate [facility] c[facility] 2022-09-29 00:00 metoprolol succinate [facility] 2022-09-30 00:00 metoprolol succinate [facility] 2022-10-01 00:00 metoprolol succinate [facility] 2022-07-17 00:00 gabapentin Walk[facility]In [facility] Prim j[facility] [...] [facility] 2022-08-29 00:00 gabapentin [facility] 2022-08-30 00:00 gabapentin [facility] 2022-08-31 00:00 gabapentin [facility] 2022-09-01 00:00 gabapentin [facility] 2022-09-02 00:00 gabapentin [facility] 2022-09-03 00:00 gabapentin [facility] 2022-09-04 00:00 gabapentin [facility] 2022-09-05 00:00 gabapentin [facility] 2022-09-06 00:00 gabapentin [facility] 2022-09-27 00:00 gabapentin [facility] c[facility] 2022-09-28 00:00 gabapentin [facility] c[facility] 2022-09-29 00:00 gabapentin [facility] 2022-09-30 00:00 gabapentin [facility] c[facility] 2022-10-01 00:00 gabapentin [facility] 2022-07-17 00:00 lidocaine [facility] Prim jase [...] [facility] 2022-08-29 00:00 lidocaine [facility] 2022-08-30 00:00 lidocaine [facility] 2022-08-31 00:00 lidocaine [facility] 2022-09-01 00:00 lidocaine [facility] 2022-09-02 00:00 lidocaine [facility] 2022-09-03 00:00 lidocaine [facility] c[facility] 2022-09-04 00:00 lidocaine [facility] c[facility] 2022-09-05 00:00 lidocaine [facility] c[facility] 2022-09-06 00:00 lidocaine [facility] c[facility] 2022-09-27 00:00 lidocaine [facility] 2022-09-28 00:00 lidocaine [facility] c[facility] 2022-09-29 00:00 lidocaine [facility] c[facility] 2022-09-30 00:00 lidocaine [facility] 2022-10-01 00:00 [facility]aine [facility] 2022-07-17 00:00 cholecalciferol (vitamin d3) Walk-In [facility] 2022-07-18 00:00 cholecalciferol (vitamin d3) Walk-In [facility] 2022-07-25 00:00 cholecalciferol (vitamin d3) Walk-In [facility] 2022-07-26 00:00 cholecalciferol (vitamin d3) Walk-In [facility] 2022-08-06 00:00 cholecalciferol (vitamin d3) Walk-In [facility] 2022-08-29 00:00 cholecalciferol (vitamin d3) Walk-In [facility] 2022-08-30 00:00 cholecalciferol (vitamin d3) Walk-In [facility] 2022-08-31 00:00 cholecalciferol (vitamin d3) Walk-In [facility] 2022-09-01 00:00 cholecalciferol (vitamin d3) Walk-In [facility] 2022-09-02 00:00 cholecalciferol (vitamin d3) Walk-In [facility] 2022-09-03 00:00 cholecalciferol (vitamin d3) Walk-In [facility] 2022-09-04 00:00 cholecalciferol (vitamin d3) Walk-In [facility] 2022-09-05 00:00 cholecalciferol (vitamin d3) Walk-In [facility] 2022-09-06 00:00 cholecalciferol (vitamin d3) Walk-In [facility] 2022-09-27 00:00 cholecalciferol (vitamin d3) Walk-In [facility] 2022-09-28 00:00 cholecalciferol (vitamin d3) Walk-In [facility] C c[facility] 2022-09-29 00:00 cholecalciferol (vitamin d3) Walk-In C [facility] C c[facility] 2022-09-30 00:00 cholecalciferol (vitamin d3) Walk-In C [facility] C c[facility] 2022-10-01 00:00 cholecalciferol (vitamin d3) Walk-In C [facility] 2022-09-27 00:00 valsartan [facility] 2022-07-17 00:00 POTASSIUM CHLORIDE Walk-In Clinic Prim [...] [facility] 2022-08-29 00:00 POTASSIUM CHLORIDE [facility] 2022-08-30 00:00 POTASSIUM CHLORIDE [facility] 2022-08-31 00:00 POTASSIUM CHLORIDE [facility] 2022-09-01 00:00 POTASSIUM CHLORIDE [facility] 2022-09-02 00:00 POTASSIUM CHLORIDE [facility] 2022-09-03 00:00 POTASSIUM CHLORIDE [facility] 2022-09-04 00:00 POTASSIUM CHLORIDE [facility] 2022-09-05 00:00 POTASSIUM CHLORIDE [facility] 2022-09-06 00:00 POTASSIUM CHLORIDE [facility] 2022-09-27 00:00 POTASSIUM CHLORIDE Walk[facility] 2022-09-28 00:00 POTASSIUM CHLORIDE Walk[facility] Prim [facility] 2022-09-29 00:00 POTASSIUM CHLORIDE Walk[facility] 2022-09-30 00:00 POTASSIUM CHLORIDE [facility] 2022-10-01 00:00 POTASSIUM CHLORIDE Walk[facility] Prim [facility] 2022-07-17 00:00 cholecalciferol (vitamin d3) Walk-In [facility] 2022-07-18 00:00 cholecalciferol (vitamin d3) Walk-In [facility] 2022-07-25 00:00 cholecalciferol (vitamin d3) Walk-In [facility] 2022-07-26 00:00 cholecalciferol (vitamin d3) Walk-In [facility] 2022-08-06 00:00 cholecalciferol (vitamin d3) Walk[facility]In [facility] 2022-08-29 00:00 cholecalciferol (vitamin d3) Walk[facility]In [facility] 2022-08-30 00:00 cholecalciferol (vitamin d3) Walk[facility]In [facility] 2022-08-31 00:00 cholecalciferol (vitamin d3) Walk-In [facility] 2022-09-01 00:00 cholecalciferol (vitamin d3) Walk-In [facility] 2022-09-02 00:00 cholecalciferol (vitamin d3) Walk-In [facility] 2022-09-03 00:00 cholecalciferol (vitamin d3) Walk-In [facility] 2022-09-04 00:00 cholecalciferol (vitamin d3) Walk[facility]In [facility] 2022-09-05 00:00 cholecalciferol (vitamin d3) Walk-In [facility] 2022-09-06 00:00 cholecalciferol (vitamin d3) Walk[facility]In [facility] 2022-09-27 00:00 cholecalciferol (vitamin d3) Walk[facility]In [facility] 2022-09-28 00:00 cholecalciferol (vitamin d3) Walk-In [facility] 2022-09-29 00:00 cholecalciferol (vitamin d3) Walk-In [facility] 2022-09-30 00:00 cholecalciferol (vitamin d3) Walk[facility]In [facility] 2022-10-01 00:00 cholecalciferol (vitamin d3) Walk-In [facility] 2022-07-17 00:00 cyanocobalamin (vitamin b-12) [facility] 2022-07-18 00:00 cyanocobalamin (vitamin b-12) [facility] 2022-07-25 00:00 cyanocobalamin (vitamin b-12) [facility] 2022-07-26 00:00 cyanocobalamin (vitamin b-12) [facility] 2022-08-06 00:00 cyanocobalamin (vitamin b-12) [facility] 2022-08-29 00:00 cyanocobalamin (vitamin b-12) [facility] 2022-08-30 00:00 cyanocobalamin (vitamin b-12) [facility] 2022-08-31 00:00 cyanocobalamin (vitamin b-12) [facility] 2022-09-01 00:00 cyanocobalamin (vitamin b-12) [facility] 2022-09-02 00:00 cyanocobalamin (vitamin b-12) [facility] cindi 2022-09-03 00:00 cyanocobalamin (vitamin b-12) [facility] cindi 2022-09-04 00:00 cyanocobalamin (vitamin b-12) [facility] cindi 2022-09-05 00:00 cyanocobalamin (vitamin b-12) [facility] cindi 2022-09-06 00:00 cyanocobalamin (vitamin b-12) [facility] cindi 2022-09-27 00:00 cyanocobalamin (vitamin b-12) [facility] cindi 2022-09-28 00:00 cyanocobalamin (vitamin b-12) [facility] cindi 2022-09-29 00:00 cyanocobalamin (vitamin b-12) [facility] cindi 2022-09-30 00:00 cyanocobalamin (vitamin b-12) [facility] cindi 2022-10-01 00:00 cyanocobalamin (vitamin b-12) [facility] cindi 2022-07-17 00:00 CYANOCOBALAMIN [facility] cindi 2022-07-18 00:00 CYANOCOBALAMIN [facility] cindi 2022-07-25 00:00 CYANOCOBALAMIN [facility] cindi 2022-07-26 00:00 CYANOCOBALAMIN [facility] 2022-08-06 00:00 CYANOCOBALAMIN [facility] 2022-08-29 00:00 CYANOCOBALAMIN [facility] 2022-08-30 00:00 CYANOCOBALAMIN [facility] 2022-08-31 00:00 CYANOCOBALAMIN [facility] 2022-09-01 00:00 CYANOCOBALAMIN [facility] 2022-09-02 00:00 CYANOCOBALAMIN [facility] 2022-09-03 00:00 CYANOCOBALAMIN [facility] 2022-09-04 00:00 CYANOCOBALAMIN [facility] 2022-09-05 00:00 CYANOCOBALAMIN [facility] 2022-09-06 00:00 CYANOCOBALAMIN [facility] 2022-09-27 00:00 CYANOCOBALAMIN [facility] 2022-09-28 00:00 CYANOCOBALAMIN [facility] 2022-09-29 00:00 CYANOCOBALAMIN [facility] 2022-09-30 00:00 CYANOCOBALAMIN [facility] 2022-10-01 00:00 CYANOCOBALAMIN [facility] 2022-07-17 00:00 FOLIC ACID Walk-In [facility] Prim [...] [facility] 2022-08-29 00:00 FOLIC ACID [facility] 2022-08-30 00:00 FOLIC ACID [facility] 2022-08-31 00:00 FOLIC ACID [facility] 2022-09-01 00:00 FOLIC ACID [facility] 2022-09-02 00:00 FOLIC ACID [facility] 2022-09-03 00:00 FOLIC ACID [facility] 2022-09-04 00:00 FOLIC ACID [facility] c[facility] 2022-09-05 00:00 FOLIC ACID [facility] c[facility] 2022-09-06 00:00 FOLIC ACID [facility] C c[facility] 2022-09-27 00:00 FOLIC ACID [facility] c[facility] 2022-09-28 00:00 FOLIC ACID [facility] C c[facility] 2022-09-29 00:00 FOLIC ACID [facility] c[facility] 2022-09-30 00:00 FOLIC ACID [facility] c[facility] 2022-10-01 00:00 FOLIC ACID [facility] 2022-07-17 00:00 glipizide Walk-In [facility] Prim jase [...] [facility] 2022-08-29 00:00 glipizide [facility] c[facility] 2022-08-30 00:00 glipizide [facility] c[facility] 2022-08-31 00:00 glipizide Walk[facility] c[facility] 2022-09-01 00:00 glipizide [facility] c[facility] 2022-09-02 00:00 glipizide Walk[facility] c[facility] 2022-09-03 00:00 glipizide Walk[facility] C c[facility] 2022-09-04 00:00 glipizide Walk[facility] C c[facility] 2022-09-05 00:00 glipizide Walk[facility] c[facility] 2022-09-06 00:00 glipizide Walk[facility] c[facility] 2022-09-27 00:00 glipizide Walk[facility] c[facility] 2022-09-28 00:00 glipizide Walk[facility] c[facility] 2022-09-29 00:00 glipizide Walk[facility] c[facility] 2022-09-30 00:00 glipizide Walk[facility] c[facility] 2022-10-01 00:00 glipizide Walk[facility] 2022-07-17 00:00 CLOPIDOGREL BISULFATE Walk-In Clinic P [...] [facility] 2022-08-29 00:00 CLOPIDOGREL BISULFATE Walk[facility] P [facility] c[facility] 2022-08-30 00:00 CLOPIDOGREL BISULFATE Walk[facility] P [facility] c[facility] 2022-08-31 00:00 CLOPIDOGREL BISULFATE Walk[facility] P [facility] 2022-09-01 00:00 CLOPIDOGREL BISULFATE Walk[facility] P [facility] c[facility] 2022-09-02 00:00 CLOPIDOGREL BISULFATE Walk[facility] P [facility] c[facility] 2022-09-03 00:00 CLOPIDOGREL BISULFATE Walk[facility] P [facility] c[facility] 2022-09-04 00:00 CLOPIDOGREL BISULFATE Walk[facility] P [facility] 2022-09-05 00:00 CLOPIDOGREL BISULFATE Walk[facility] P [facility] C cinid 2022-09-06 00:00 CLOPIDOGREL BISULFATE Walk[facility] P [facility] 2022-09-27 00:00 CLOPIDOGREL BISULFATE Walk[facility] P [facility] 2022-09-28 00:00 CLOPIDOGREL BISULFATE Walk[facility] P [facility] c[facility] 2022-09-29 00:00 CLOPIDOGREL BISULFATE [facility] P [facility] c[facility] 2022-09-30 00:00 CLOPIDOGREL BISULFATE Walk[facility] P [facility] 2022-10-01 00:00 CLOPIDOGREL BISULFATE Walk[facility] P [facility] 2022-09-27 00:00 metformin [facility] puente 2022-07-17 00:00 peg [id number] [facility]za puente 2022-07-18 00:00 peg [id number] [facility] Humza puente 2022-07-25 00:00 peg [id number] [facility]za puente 2022-07-26 00:00 peg [id number]-zmhwsiax [facility]za puente 2022-08-06 00:00 peg [id number] [facility]za puente 2022-08-29 00:00 peg 586-[id number]-kygmhdsh [facility]za puente 2022-08-30 00:00 peg [id number]-vehqdkme [facility] 2022-08-31 00:00 peg [id number]-[id number] [facility] 2022-09-01 00:00 peg [id number]-yhdlydel [facility] 2022-09-02 00:00 peg [id number]-[id number] [facility] 2022-09-03 00:00 peg [id number]-hbecelna [facility] 2022-09-04 00:00 peg [id number]-gnwstyyr [facility] 2022-09-05 00:00 peg [id number]-vqctqahc [facility] 2022-09-06 00:00 peg [id number]-lsxidvzf [facility] 2022-09-27 00:00 peg [id number] [facility] puente 2022-09-28 00:00 peg [id number]-uysyeimc [facility] puente 2022-09-29 00:00 peg [id number]-[id number] [facility] puente 2022-09-30 00:00 peg [id number]-fvsunlon [facility] puente 2022-10-01 00:00 peg [id number]-fnjzaxkq [facility] mcgoverncindi 2022-07-17 00:00 metoprolol succinate [facility] 2022-07-18 00:00 metoprolol succinate [facility] C [facility] 2022-07-25 00:00 metoprolol succinate [facility] Humza mcgoverncindi 2022-07-26 00:00 metoprolol succinate [facility] C [facility] 2022-08-06 00:00 metoprolol succinate [facility] C [facility] 2022-08-29 00:00 metoprolol succinate [facility] C [facility] 2022-08-30 00:00 metoprolol succinate [facility] C [facility] 2022-08-31 00:00 metoprolol succinate [facility] C c[facility] 2022-09-01 00:00 metoprolol succinate [facility] C c[facility] 2022-09-02 00:00 metoprolol succinate [facility] C c[facility] 2022-09-03 00:00 metoprolol succinate [facility] C c[facility] 2022-09-04 00:00 metoprolol succinate [facility] C c[facility] 2022-09-05 00:00 metoprolol succinate [facility] C [facility] 2022-09-06 00:00 metoprolol succinate [facility] C c[facility] 2022-09-27 00:00 metoprolol succinate [facility] C cindi 2022-09-28 00:00 metoprolol succinate [facility] C cindi 2022-09-29 00:00 metoprolol succinate [facility] C cindi 2022-09-30 00:00 metoprolol succinate [facility] C c[facility] 2022-10-01 00:00 metoprolol succinate [facility] C cindi 2022-07-17 00:00 FOLIC ACID Walk-In [facility] Prim [...] [facility] c[facility] 2022-08-29 00:00 FOLIC ACID [facility] C cindi 2022-08-30 00:00 FOLIC ACID [facility] C cindi 2022-08-31 00:00 FOLIC ACID [facility] C cindi 2022-09-01 00:00 FOLIC ACID [facility] C cindi 2022-09-02 00:00 FOLIC ACID [facility] C cindi 2022-09-03 00:00 FOLIC ACID [facility] C cindi 2022-09-04 00:00 FOLIC ACID [facility] C cindi 2022-09-05 00:00 FOLIC ACID [facility] C cindi 2022-09-06 00:00 FOLIC ACID [facility] C cindi 2022-09-27 00:00 FOLIC ACID [facility] C cindi 2022-09-28 00:00 FOLIC ACID [facility] C cindi 2022-09-29 00:00 FOLIC ACID [facility] C cindi 2022-09-30 00:00 FOLIC ACID [facility] C cindi 2022-10-01 00:00 FOLIC ACID [facility] C cindi 2022-07-17 00:00 FUROSEMIDE Walk-In Clinic Prim jase [...] [facility] cindi 2022-08-29 00:00 FUROSEMIDE [facility] C cindi 2022-08-30 00:00 FUROSEMIDE [facility] C cindi 2022-08-31 00:00 FUROSEMIDE [facility] C cindi 2022-09-01 00:00 FUROSEMIDE [facility] cindi 2022-09-02 00:00 [facility] 2022-09-03 00[facility]00 [facility] 2022-09-04 00:00 [facility] 2022-09-05 00:00 [facility] 2022-09-06 00:00 [facility] 2022-09-27 00:00 [facility] 2022-09-28 00:00 [facility] 2022-09-29 00:00 [facility] 2022-09-30 00:00 [facility] 2022-10-01 00:00 [facility] 2022-07-17 00:00 lidocaine [facility] [...] [facility] 2022-08-29 00:00 lidocaine [facility] 2022-08-30 00:00 lidocaine [facility] 2022-08-31 00:00 lidocaine [facility] 2022-09-01 00:00 lidocaine [facility] 2022-09-02 00:00 lidocaine [facility] 2022-09-03 00:00 lidocaine [facility] 2022-09-04 00:00 lidocaine [facility] 2022-09-05 00:00 lidocaine [facility] 2022-09-06 00:00 lidocaine [facility] 2022-09-27 00:00 lidocaine [facility] 2022-09-28 00:00 lidocaine [facility] 2022-09-29 00:00 lidocaine [facility] 2022-09-30 00:00 lidocaine [facility] 2022-10-01 00:00 lidocaine [facility] 2022-07-17 00:00 flash glucose scanning reader [facility] Humza puente 2022-07-18 00:00 flash glucose scanning reader [facility] 2022-07-25 00:00 flash glucose scanning reader [facility] 2022-07-26 00:00 flash glucose scanning reader [facility] 2022-08-06 00:00 flash glucose scanning reader [facility] 2022-08-29 00:00 flash glucose scanning reader [facility] 2022-08-30 00:00 flash glucose scanning reader [facility] 2022-08-31 00:00 flash glucose scanning reader [facility] 2022-09-01 00:00 flash glucose scanning reader [facility] 2022-09-02 00:00 flash glucose scanning reader [facility] 2022-09-03 00:00 flash glucose scanning reader [facility] 2022-09-04 00:00 flash glucose scanning reader [facility] 2022-09-05 00:00 flash glucose scanning reader [facility] 2022-09-06 00:00 flash glucose scanning reader [facility] 2022-09-27 00:00 flash glucose scanning reader [facility] 2022-09-28 00:00 flash glucose scanning reader [facility] 2022-09-29 00:00 flash glucose scanning reader [facility] 2022-09-30 00:00 flash glucose scanning reader [facility] 2022-10-01 00:00 flash glucose scanning reader [facility] 2022-07-17 00:00 flash glucose sensor [facility] [...] [facility] 2022-08-29 00:00 flash glucose sensor [facility] 2022-08-30 00:00 flash glucose sensor [facility] 2022-08-31 00:00 flash glucose sensor [facility] 2022-09-01 00:00 flash glucose sensor [facility] 2022-09-02 00:00 flash glucose sensor [facility] 2022-09-03 00:00 flash glucose sensor [facility] 2022-09-04 00:00 flash glucose sensor [facility] 2022-09-05 00:00 flash glucose sensor [facility] 2022-09-06 00:00 flash glucose sensor [facility] 2022-09-27 00:00 flash glucose sensor [facility] 2022-09-28 00:00 flash glucose sensor [facility] 2022-09-29 00:00 flash glucose sensor [facility] 2022-09-30 00:00 flash glucose sensor [facility] 2022-10-01 00:00 flash glucose sensor [facility] cinid 2022-07-17 00:00 [facility]OT[facility] Prim [...] [facility] 2022-08-29 00:00 [facility] POTASSIUM [facility] 2022-08-30 00:00 [facility] POTASSIUM [facility] 2022-08-31 00:00 [facility] POTAS[facility]UM [facility] 2022-09-01 00:00 [facility] POTAS[facility]UM [facility] 2022-09-02 00:00 [facility]AS[facility] 2022-09-03 00:00 [facility] 2022-09-04 00:00 [facility]OT[facility] 2022-09-05 00:00 [facility] POTAS[facility] 2022-09-06 00:00 [facility] 2022-09-27 00:00 [facility] 2022-09-28 00:00 [facility] 2022-09-29 00:00 [facility]OTAS[facility] 2022-09-30 00:00 [facility] 2022-10-01 00:00 [facility] 2022-07-17 00:00 15ml [facility] 2022-08-29 00:00 15ml [facility] 2022-08-30 00:00 15ml [facility] 2022-08-31 00:00 15ml [facility] 2022-09-01 00:00 15ml [facility] 2022-09-02 00:00 15ml [facility] 2022-09-03 00:00 15ml [facility] 2022-09-04 00:00 15ml [facility] 2022-09-05 00:00 15ml [facility] 2022-09-06 00:00 15ml [facility] 2022-09-27 00:00 15ml [facility] 2022-09-28 00:00 15ml [facility] 2022-09-29 00:00 15ml [facility] 2022-09-30 00:00 15ml [facility] 2022-10-01 00:00 15ml [facility] 2022-07-17 00:00 coenzyme q10 [facility] [...] [facility] 2022-08-29 00:00 coenzyme q10 [facility] 2022-08-30 00:00 coenzyme q10 [facility] 2022-08-31 00:00 coenzyme q10 [facility] 2022-09-01 00:00 coenzyme q10 [facility] 2022-09-02 00:00 coenzyme q10 [facility] 2022-09-03 00:00 coenzyme q10 [facility] 2022-09-04 00:00 coenzyme q10 [facility] 2022-09-05 00:00 coenzyme q10 [facility] 2022-09-06 00:00 coenzyme q10 [facility] 2022-09-27 00:00 coenzyme q10 [facility] 2022-09-28 00:00 coenzyme q10 [facility] 2022-09-29 00:00 coenzyme q10 [facility] 2022-09-30 00:00 coenzyme q10 [facility] 2022-10-01 00:00 coenzyme q10 [facility] Humza puente Lizbeth No information. Procedures date description facility 2022-07-17 00:00 Visit Code Hold [facility] 2022-07-24 00:00 Visit Code Hold [facility] cindi 2022-09-27 00:00 Visit Code Hold [facility] 2022-07-24 00:00 COMPREHENSIVE METABOLIC PANEL [facility] cindi 2022-09-27 00:00 COMPREHENSIVE METABOLIC PANEL [facility] cindi 2022-07-24 00:00 LIPIDS SCREEN [facility] cindi 2022-09-27 00:00 LIPIDS SCREEN [facility] 2022-07-17 00:00 POC URINALYSIS DIP [facility] cindi 2022-09-27 00:00 HGBA1C [facility] 2022-07-24 00:00 CBC W/Diff/Plt [facility] cindi 2022-09-27 00:00 CBC W/Diff/Plt [facility] 2022-09-27 00:00 EKG Office Complete [facility] 2022-09-27 00:00 MICROALBUMIN/CREAT RATIO Walk[facility]In [facility] 2022-09-27 00:00 TSH WITH REFLEX TO FT4 Walk[facility]In [facility] 2022-07-17 00:00 Urine C&S [facility] 2022-09-27 00:00 Urine C&S Walk[facility]In [facility] Results/Labs test date author facility value unit [...] [facility] Result panel 130 (unknown) (no date) (unknown) [...] [facility] Result panel 233 (unknown) (no date) (unknown) [...] [facility] Result panel 299 (unknown) (no date) (unknown) [...] [facility] Result panel 363 (unknown) (no date) (unknown) [...] [facility] Result panel 435 (unknown) (no date) (unknown) [...] [facility] Result panel 476 (unknown) (no date) (unknown) [...] [facility] Result panel 488 (unknown) (no date) (unknown) [facility] (no value) (units [facility]) [facility] Result panel 489 (unknown) (no date) (unknown) [facility] (no value) [facility] Result panel 490 (unknown) (no date) (unknown) [facility] (no value) [facility] Result panel 491 (unknown) (no date) (unknown) [facility] (no value) [facility] Result panel 492 (unknown) (no date) (unknown) [facility] (no value) [facility] Result panel 493 (unknown) (no date) (unknown) [facility] (no value) [facility] Result panel 494 (unknown) (no date) (unknown) [facility] (no value) [facility] Result panel 495 (unknown) (no date) (unknown) [facility] (no value) [facility] Result panel 496 (unknown) (no date) (unknown) [facility] (no value) [facility] Result panel 497 (unknown) (no date) (unknown) [facility] (no value) [facility] Result panel 498 (unknown) (no date) (unknown) [facility] (no value) [facility] Result panel 499 (unknown) (no date) (unknown) [facility] (no value) [facility] Result panel 500 (unknown) (no date) (unknown) [facility] (no value) [facility] Result panel 501 (unknown) (no date) (unknown) [facility] (no value) [facility] Result panel 502 (unknown) (no date) (unknown) [facility] (no value) ([facility] Result panel 503 (unknown) (no date) (unknown) [facility] (no value) [facility] Result panel 504 (unknown) (no date) (unknown) [facility] (no value) [facility] Result panel 505 (unknown) (no date) (unknown) [facility] (no value) [facility] Result panel 506 (unknown) (no date) (unknown) [facility] (no value) [facility] Result panel 507 (unknown) (no date) (unknown) [facility] (no value) ([facility] Result panel 508 (unknown) (no date) (unknown) [facility] (no value) ([facility] Primary unknown) [facility] Result panel 509 (unknown) (no date) (unknown) [facility] (no value) ([facility] unknown) [facility] Result panel 510 (unknown) (no date) (unknown) [facility] (no value) [facility] Result panel 511 (unknown) (no date) (unknown) Walk-[facility] (no value) ([facility] unknown) [facility] Result panel 512 (unknown) (no date) (unknown) [facility] (no value) ([facility] unknown) [facility] Result panel 513 (unknown) (no date) (unknown) Walk-[facility] (no value) ([facility] unknown) [facility] Result panel 514 (unknown) (no date) (unknown) [facility] (no value) ([facility] unknown) [facility] Result panel 515 (unknown) (no date) (unknown) [facility] (no value) (units [facility]own[facility] unknown) [facility] Result panel 516 (unknown) (no date) (unknown) Walk-[facility] (no value) ([facility] ([facility]own[facility] unknown) [facility] Result panel 517 (unknown) (no date) (unknown) Walk-[facility] (no value) (units ([facility]own[facility] unknown) [facility] Result panel 518 (unknown) (no date) (unknown) Walk-[facility] (no value) ([facility] unknown) [facility] Result panel 519 (unknown) (no date) (unknown) Walk-[facility] (no value) ([facility] unknown) [facility] Result panel 520 (unknown) (no date) (unknown) Walk-[facility] (no value) ([facility]own[facility] unknown) [facility] Result panel 521 (unknown) (no date) (unknown) Walk-In (no value) (units ([facility]own[facility] unknown) [facility] Result panel 522 (unknown) (no date) (unknown) Walk-In (no value) (units ([facility]own[facility] Primary unknown) [facility] Result panel 523 (unknown) (no date) (unknown) Walk-In (no value) (units ([facility]own[facility] unknown) [facility] Result panel 524 (unknown) (no date) (unknown) Walk-In (no value) (units ([facility]own[facility] unknown) [facility] Result panel 525 (unknown) (no date) (unknown) Walk-In (no value) (units ([facility]own[facility] unknown) [facility] Result panel 526 (unknown) (no date) (unknown) Walk-In (no value) (units ([facility]own[facility] unknown) [facility] Result panel 527 (unknown) (no date) (unknown) Walk-[facility] (no value) ([facility] unknown) [facility] Result panel 528 (unknown) (no date) (unknown) Walk-[facility] (no value) ([facility] unknown) [facility] Result panel 529 (unknown) (no date) (unknown) Walk-[facility] (no value) ([facility] unknown) [facility] Result panel 530 (unknown) (no date) (unknown) Walk-[facility] (no value) ([facility] unknown) [facility] Result panel 531 (unknown) (no date) (unknown) Walk-[facility] (no value) (units [facility] unknown) [facility] Result panel 532 (unknown) (no date) (unknown) Walk-In (no value) ([facility] unknown) [facility] Result panel 533 (unknown) (no date) (unknown) Walk-In (no value) (units [facility] unknown) [facility] Result panel 534 (unknown) (no date) (unknown) Walk-In (no value) (units [facility]own[facility] Primary unknown) [facility] Result panel 535 (unknown) (no date) (unknown) Walk-In (no value) (units [facility]own[facility] Primary unknown) [facility] Result panel 536 (unknown) (no date) (unknown) Walk-In (no value) (units [facility] unknown) [facility] Result panel 537 (unknown) (no date) (unknown) Walk-In (no value) (units [facility] unknown) [facility] Result panel 538 (unknown) (no date) (unknown) Walk-In (no value) (units [facility] Primary unknown) [facility] Result panel 539 (unknown) (no date) (unknown) Walk-In (no value) (units [facility] unknown) [facility] Result panel 540 (unknown) (no date) (unknown) Walk-In (no value) (units ([facility]own[facility] Primary unknown) [facility] Result panel 541 (unknown) (no date) (unknown) Walk-In (no value) (units ([facility]own[facility] Primary unknown) [facility] Result panel 542 (unknown) (no date) (unknown) Walk-In (no value) (units ([facility] nown[facility] Primary unknown) [facility] Result panel 543 (unknown) (no date) (unknown) Walk-In (no value) (units ([facility]own[facility] Primary unknown) [facility] Result panel 544 (unknown) (no date) (unknown) Walk-In (no value) (units ([facility] nown[facility] Primary unknown) [facility] Result panel 545 (unknown) (no date) (unknown) Walk-In (no value) (units ([facility] Primary unknown) [facility] Result panel 546 (unknown) (no date) (unknown) Walk-In (no value) (units ([facility] Primary unknown) [facility] Result panel 547 (unknown) (no date) (unknown) Walk-In (no value) (units [facility] unknown) [facility] Result panel 548 (unknown) (no date) (unknown) Walk-In (no value) (units ([facility] Primary unknown) [facility] Result panel 549 (unknown) (no date) (unknown) Walk-In (no value) (units ([facility] Primary unknown) [facility] Result panel 550 (unknown) (no date) (unknown) Walk-In (no value) (units ([facility] Primary unknown) [facility] Result panel 551 (unknown) (no date) (unknown) Walk-In (no value) (units ([facility] Primary unknown) [facility] Result panel 552 (unknown) (no date) (unknown) Walk-In (no value) (units ([facility]own[facility] Primary unknown) [facility] Result panel 553 (unknown) (no date) (unknown) Walk-In (no value) (units ([facility]own[facility] Primary unknown) [facility] Result panel 554 (unknown) (no date) (unknown) Walk-In (no value) (units ([facility]own[facility] Primary unknown) [facility] Result panel 555 (unknown) (no date) (unknown) Walk-In (no value) (units ([facility] nown[facility] Primary unknown) [facility] Result panel 556 (unknown) (no date) (unknown) Walk-In (no value) (units ([facility] Primary unknown) [facility] Result panel 557 (unknown) (no date) (unknown) Walk-In (no value) (units ([facility] Primary unknown) [facility] Result panel 558 (unknown) (no date) (unknown) Walk-In (no value) (units ([facility]own[facility] Primary unknown) [facility] Result panel 559 (unknown) (no date) (unknown) Walk-In (no value) (units ([facility] n[facility] Primary unknown) [facility] Result panel 560 (unknown) (no date) (unknown) Walk-In (no value) (units ([facility] nown[facility] Primary unknown) [facility] Result panel 561 (unknown) (no date) (unknown) Walk-In (no value) (units ([facility]own[facility] Primary unknown) [facility] Result panel 562 (unknown) (no date) (unknown) Walk-In (no value) (units ([facility]own[facility] Primary unknown) [facility] Result panel 563 (unknown) (no date) (unknown) Walk-In (no value) (units (unk nown[facility] Primary unknown) [facility] Result panel 564 (unknown) (no date) (unknown) Walk-In (no value) (units ([facility] nown) [facility] Primary unknown) [facility] Result panel 565 (unknown) (no date) (unknown) Walk-In (no value) (units ([facility] nown) [facility] Primary unknown) [facility] Result panel 566 (unknown) (no date) (unknown) Walk-In (no value) (units (unk nown) [facility] Primary unknown) [facility] Result panel 567 (unknown) (no date) (unknown) Walk-In (no value) (units (unk nown) [facility] Primary unknown) [facility] Result panel 568 (unknown) (no date) (unknown) Walk-In (no value) (units (unk nown) [facility] Primary unknown) [facility] Result panel 569 (unknown) (no date) (unknown) Walk-In (no value) (units (unk nown) [facility] Primary unknown) [facility] Result panel 570 (unknown) (no date) (unknown) Walk-In (no value) (units (unk nown) [facility] Primary unknown) [facility] Result panel 571 (unknown) (no date) (unknown) Walk-In (no value) (units (unk nown[facility] Primary unknown) [facility] Result panel 572 (unknown) (no date) (unknown) Walk-In (no value) (units (unk nown) [facility] Primary unknown) [facility] Result panel 573 (unknown) (no date) (unknown) [facility] Result panel 574 (unknown) (no date) (unknown) [facility] (no value[facility] Result panel 575 (unknown) (no date) (unknown) [facility] (no value) [facility] Result panel 576 (unknown) (no date) (unknown) [facility] (no value) [facility] Result panel 577 (unknown) (no date) (unknown) [facility]no value) [facility] Result panel 578 (unknown) (no date) (unknown) [facility] (no value) [facility] Result panel 579 (unknown) (no date) (unknown) [facility] (no value) [facility] Result panel 580 (unknown) (no date) (unknown) [facility] (no value) [facility] Result panel 581 (unknown) (no date) (unknown) [facility] (no value) [facility] Result panel 582 (unknown) (no date) (unknown) [facility] (no value) [facility] Result panel 583 (unknown) (no date) (unknown) [facility] (no value) [facility] Result panel 584 (unknown) (no date) (unknown) [facility] (no value) [facility] Result panel 585 (unknown) (no date) (unknown) [facility] (no value) [facility] Result panel 586 (unknown) (no date) (unknown) [facility] (no value) [facility] Result panel 587 (unknown) (no date) (unknown) [facility] (no value) [facility] Result panel 588 (unknown) (no date) (unknown) [facility] (no value) [facility] Result panel 589 (unknown) (no date) (unknown) [facility] (no value) [facility] Result panel 590 (unknown) (no date) (unknown) [facility] (no value) [facility] Result panel 591 (unknown) (no date) (unknown) [facility] (no value) [facility] Result panel 592 (unknown) (no date) (unknown) [facility] (no value) [facility] Result panel 593 (unknown) (no date) (unknown) [facility] (no value) [facility] Result panel 594 (unknown) (no date) (unknown) [facility] (no value) [facility] Result panel 595 (unknown) (no date) (unknown) [facility] (no value) [facility] Result panel 596 (unknown) (no date) (unknown) [facility] (no value) [facility] Result panel 597 (unknown) (no date) (unknown) [facility] (no value) [facility] Result panel 598 (unknown) (no date) (unknown) [facility] (no value) [facility] Result panel 599 (unknown) (no date) (unknown) [facility] (no value) [facility] Result panel 600 (unknown) (no date) (unknown) [facility] (no value) [facility] Result panel 601 (unknown) (no date) (unknown) [facility] (no value) [facility] Result panel 602 (unknown) (no date) (unknown) [facility] (no value) [facility] Result panel 603 (unknown) (no date) (unknown) [facility] (no value) [facility] Result panel 604 (unknown) (no date) (unknown) [facility] (no value) [facility] Result panel 605 (unknown) (no date) (unknown) [facility] (no value) [facility] Result panel 606 (unknown) (no date) (unknown) [facility] (no value) [facility] Result panel 607 (unknown) (no date) (unknown) [facility] (no value) [facility] Result panel 608 (unknown) (no date) (unknown) [facility] (no value) [facility] Result panel 609 (unknown) (no date) (unknown) [facility] (no value) [facility] Result panel 610 (unknown) (no date) (unknown) [facility] (no value) [facility] Result panel 611 (unknown) (no date) (unknown) [facility] (no value) [facility] Result panel 612 (unknown) (no date) (unknown) [facility] (no value) [facility] Result panel 613 (unknown) (no date) (unknown) [facility] (no value) [facility] Result panel 614 (unknown) (no date) (unknown) [facility] (no value) [facility] Result panel 615 (unknown) (no date) (unknown) [facility] (no value) [facility] Result panel 616 (unknown) (no date) (unknown) [facility] (no value) [facility] Result panel 617 (unknown) (no date) (unknown) [facility] (no value) [facility] Result panel 618 (unknown) (no date) (unknown) [facility] (no value) [facility] Result panel 619 (unknown) (no date) (unknown) [facility] (no value) [facility] Result panel 620 (unknown) (no date) (unknown) [facility] (no value) [facility] Result panel 621 (unknown) (no date) (unknown) [facility] (no value) [facility] Result panel 622 (unknown) (no date) (unknown) [facility] (no value) [facility] Result panel 623 (unknown) (no date) (unknown) [facility] (no value) [facility] Result panel 624 (unknown) (no date) (unknown) [facility] (no value) [facility] Result panel 625 (unknown) (no date) (unknown) [facility] (no value) [facility] Result panel 626 (unknown) (no date) (unknown) [facility] (no value) [facility] Result panel 627 (unknown) (no date) (unknown) [facility] (no value) [facility] Result panel 628 (unknown) (no date) (unknown) [facility] (no value) [facility] Result panel 629 (unknown) (no date) (unknown) [facility] (no value) [facility] Result panel 630 (unknown) (no date) (unknown) [facility] (no value) [facility] Result panel 631 (unknown) (no date) (unknown) [facility] (no value) [facility] Result panel 632 (unknown) (no date) (unknown) [facility] (no value) [facility] Result panel 633 (unknown) (no date) (unknown) [facility] (no value) [facility] Result panel 634 (unknown) (no date) (unknown) [facility] (no value) [facility] Result panel 635 (unknown) (no date) (unknown) [facility] (no value) [facility] Result panel 636 (unknown) (no date) (unknown) [facility] (no value) [facility] Result panel 637 (unknown) (no date) (unknown) [facility] (no value) [facility] Result panel 638 (unknown) (no date) (unknown) [facility] (no value) [facility] Result panel 639 (unknown) (no date) (unknown) [facility] (no value) [facility] Result panel 640 (unknown) (no date) (unknown) [facility] (no value) [facility] Result panel 641 (unknown) (no date) (unknown) [facility] (no value) [facility] Result panel 642 (unknown) (no date) (unknown) [facility] (no value) [facility] Result panel 643 (unknown) (no date) (unknown) [facility] (no value) [facility] Result panel 644 (unknown) (no date) (unknown) [facility] (no value) [facility] Result panel 645 (unknown) (no date) (unknown) [facility] (no value) [facility] Result panel 646 (unknown) (no date) (unknown) [facility] (no value) [facility] Result panel 647 (unknown) (no date) (unknown) [facility] (no value) [facility] Result panel 648 (unknown) (no date) (unknown) [facility] (no value) [facility] Result panel 649 (unknown) (no date) (unknown) [facility] (no value) [facility] Result panel 650 (unknown) (no date) (unknown) [facility] (no value) [facility] Result panel 651 (unknown) (no date) (unknown) [facility] (no value) [facility] Result panel 652 (unknown) (no date) (unknown) [facility] (no value) [facility] Result panel 653 (unknown) (no date) (unknown) [facility] (no value) [facility] Result panel 654 (unknown) (no date) (unknown) [facility] (no value) [facility] Result panel 655 (unknown) (no date) (unknown) [facility] (no value) [facility] Result panel 656 (unknown) (no date) (unknown) [facility] (no value) [facility] Result panel 657 (unknown) (no date) (unknown) [facility] (no value) [facility] Result panel 658 (unknown) (no date) (unknown) [facility] (no value) [facility] Result panel 659 (unknown) (no date) (unknown) [facility] (no value) [facility] Result panel 660 (unknown) (no date) (unknown) [facility] (no value) [facility] Result panel 661 (unknown) (no date) (unknown) [facility] (no value) [facility] Result panel 662 (unknown) (no date) (unknown) [facility] (no value) [facility] Result panel 663 (unknown) (no date) (unknown) [facility] (no value) [facility] Result panel 664 (unknown) (no date) (unknown) [facility] (no value) [facility] Result panel 665 (unknown) (no date) (unknown) [facility] (no value) [facility] Result panel 666 (unknown) (no date) (unknown) [facility] (no value) [facility] Result panel 667 (unknown) (no date) (unknown) [facility] (no value) [facility] Result panel 668 (unknown) (no date) (unknown) [facility] (no value) [facility] Result panel 669 (unknown) (no date) (unknown) [facility] (no value) [facility] Result panel 670 (unknown) (no date) (unknown) [facility] (no value) [facility] Result panel 671 (unknown) (no date) (unknown) [facility] (no value) [facility] Result panel 672 (unknown) (no date) (unknown) [facility] (no value) [facility] Result panel 673 (unknown) (no date) (unknown) [facility] (no value) [facility] Result panel 674 (unknown) (no date) (unknown) [facility] (no value) [facility] Result panel 675 (unknown) (no date) (unknown) [facility] (no value) [facility] Result panel 676 (unknown) (no date) (unknown) [facility] (no value) [facility] Result panel 677 (unknown) (no date) (unknown) [facility] (no value) [facility] Result panel 678 (unknown) (no date) (unknown) [facility] (no value) [facility] Result panel 679 (unknown) (no date) (unknown) [facility] (no value) [facility] Result panel 680 (unknown) (no date) (unknown) [facility] (no value) [facility] Result panel 681 (unknown) (no date) (unknown) [facility] (no value) [facility] Result panel 682 (unknown) (no date) (unknown) [facility] (no value) [facility] Result panel 683 (unknown) (no date) (unknown) [facility] (no value) [facility] Result panel 684 (unknown) (no date) (unknown) [facility] (no value) [facility] Result panel 685 (unknown) (no date) (unknown) [facility] (no value) [facility] Result panel 686 (unknown) (no date) (unknown) [facility] (no value) [facility] Result panel 687 (unknown) (no date) (unknown) [facility] (no value) [facility] Result panel 688 (unknown) (no date) (unknown) [facility] (no value) [facility] Result panel 689 (unknown) (no date) (unknown) [facility] (no value) [facility] Result panel 690 (unknown) (no date) (unknown) [facility] (no value) [facility] Result panel 691 (unknown) (no date) (unknown) [facility] (no value) [facility] Result panel 692 (unknown) (no date) (unknown) [facility] (no value) [facility] Result panel 693 (unknown) (no date) (unknown) [facility] (no value) [facility] Result panel 694 (unknown) (no date) (unknown) [facility] (no value) [facility] Result panel 695 (unknown) (no date) (unknown) [facility] (no value) [facility] Result panel 696 (unknown) (no date) (unknown) [facility] (no value) [facility] Result panel 697 (unknown) (no date) (unknown) [facility] (no value) [facility] Result panel 698 (unknown) (no date) (unknown) [facility] (no value) [facility] Result panel 699 (unknown) (no date) (unknown) [facility] (no value) [facility] Result panel 700 (unknown) (no date) (unknown) [facility] (no value) [facility] Result panel 701 (unknown) (no date) (unknown) [facility] (no value) [facility] Result panel 702 (unknown) (no date) (unknown) [facility] (no value) [facility] Result panel 703 (unknown) (no date) (unknown) [facility] (no value) [facility] Result panel 704 (unknown) (no date) (unknown) [facility] (no value) [facility] Result panel 705 (unknown) (no date) (unknown) [facility] (no value) [facility] Result panel 706 (unknown) (no date) (unknown) [facility] (no value) [facility] Result panel 707 (unknown) (no date) (unknown) [facility] (no value) [facility] Result panel 708 (unknown) (no date) (unknown) [facility] (no value) [facility] Result panel 709 (unknown) (no date) (unknown) [facility] (no value) [facility] Result panel 710 (unknown) (no date) (unknown) [facility] (no value) [facility] Result panel 711 (unknown) (no date) (unknown) [facility] (no value) [facility] Result panel 712 (unknown) (no date) (unknown) [facility] (no value) [facility] Result panel 713 (unknown) (no date) (unknown) [facility] (no value) [facility] Result panel 714 (unknown) (no date) (unknown) [facility] (no value) [facility] Result panel 715 (unknown) (no date) (unknown) [facility] (no value) [facility] Result panel 716 (unknown) (no date) (unknown) [facility] (no value) [facility] Result panel 717 (unknown) (no date) (unknown) [facility] (no value) [facility] Result panel 718 (unknown) (no date) (unknown) [facility] (no value) [facility] Result panel 719 (unknown) (no date) (unknown) [facility] (no value) [facility] Result panel 720 (unknown) (no date) (unknown) [facility] (no value) [facility] Result panel 721 (unknown) (no date) (unknown) [facility] (no value) [facility] Result panel 722 (unknown) (no date) (unknown) [facility] (no value) [facility] Result panel 723 (unknown) (no date) (unknown) [facility] (no value) [facility] Result panel 724 (unknown) (no date) (unknown) [facility] (no value) [facility] Result panel 725 (unknown) (no date) (unknown) [facility] (no value) [facility] Result panel 726 (unknown) (no date) (unknown) [facility] (no value) [facility] Result panel 727 (unknown) (no date) (unknown) [facility] (no value) [facility] Result panel 728 (unknown) (no date) (unknown) [facility] (no value) [facility] Result panel 729 (unknown) (no date) (unknown) [facility] (no value) [facility] Result panel 730 (unknown) (no date) (unknown) [facility] (no value) [facility] Result panel 731 (unknown) (no date) (unknown) [facility] (no value) [facility] Result panel 732 (unknown) (no date) (unknown) [facility] (no value) [facility] Result panel 733 (unknown) (no date) (unknown) [facility] (no value) [facility] Result panel 734 (unknown) (no date) (unknown) [facility] (no value) [facility] Result panel 735 (unknown) (no date) (unknown) [facility] (no value) [facility] Result panel 736 (unknown) (no date) (unknown) [facility] (no value) [facility] Result panel 737 (unknown) (no date) (unknown) [facility]-In (no value) [facility] Result panel 738 (unknown) (no date) (unknown) [facility] (no value) [facility] Result panel 739 (unknown) (no date) (unknown) [facility]-In (no value) [facility] Result panel 740 (unknown) (no date) (unknown) [facility] (no value) [facility] Result panel 741 (unknown) (no date) (unknown) [facility]-In (no value) [facility] unknown) [facility] Result panel 742 (unknown) (no date) (unknown) [facility] Result panel 743 (unknown) (no date) (unknown) [facility]no value) [facility]) [facility] Result panel 744 (unknown) (no date) (unknown) [facility]no value) [facility] Result panel 745 (unknown) (no date) (unknown) [facility] (no value) [facility] Result panel 746 (unknown) (no date) (unknown) [facility] (no value) [facility] Result panel 747 (unknown) (no date) (unknown) [facility] (no value) [facility] Result panel 748 (unknown) (no date) (unknown) [facility] (no value) [facility] Result panel 749 (unknown) (no date) (unknown) [facility] (no value) [facility] Result panel 750 (unknown) (no date) (unknown) [facility]no value) [facility] Result panel 751 (unknown) (no date) (unknown) [facility] (no value) [facility]) [facility] Result panel 752 (unknown) (no date) (unknown) [facility] (no value) [facility] Result panel 753 (unknown) (no date) (unknown) [facility] (no value) [facility] Result panel 754 (unknown) (no date) (unknown) [facility] (no value) [facility] Result panel 755 (unknown) (no date) (unknown) [facility] (no value) [facility] Result panel 756 (unknown) (no date) (unknown) [facility]no value) [facility] Result panel 757 (unknown) (no date) (unknown) [facility] (no value) [facility] Result panel 758 (unknown) (no date) (unknown) [facility] (no value) [facility] Result panel 759 (unknown) (no date) (unknown) [facility] (no value) [facility] Result panel 760 (unknown) (no date) (unknown) [facility] (no value) [facility] Result panel 761 (unknown) (no date) (unknown) [facility] (no value) [facility] Result panel 762 (unknown) (no date) (unknown) [facility] (no value) [facility] Result panel 763 (unknown) (no date) (unknown) [facility] (no value) [facility] Result panel 764 (unknown) (no date) (unknown) [facility] (no value) [facility] Result panel 765 (unknown) (no date) (unknown) [facility] (no value) [facility] Result panel 766 (unknown) (no date) (unknown) [facility] (no value) [facility] Result panel 767 (unknown) (no date) (unknown) [facility] (no value) [facility] Result panel 768 (unknown) (no date) (unknown) [facility] (no value) [facility] Result panel 769 (unknown) (no date) (unknown) [facility] (no value) [facility] Result panel 770 (unknown) (no date) (unknown) [facility] (no value) [facility] Result panel 771 (unknown) (no date) (unknown) [facility] (no value) [facility] Result panel 772 (unknown) (no date) (unknown) [facility] (no value) [facility] Result panel 773 (unknown) (no date) (unknown) [facility] (no value) [facility] Result panel 774 (unknown) (no date) (unknown) [facility] (no value) [facility] Result panel 775 (unknown) (no date) (unknown) [facility] (no value) [facility] Result panel 776 (unknown) (no date) (unknown) [facility] (no value) [facility] Result panel 777 (unknown) (no date) (unknown) [facility] (no value) [facility] Result panel 778 (unknown) (no date) (unknown) [facility] (no value) [facility] Result panel 779 (unknown) (no date) (unknown) [facility] (no value) [facility] Result panel 780 (unknown) (no date) (unknown) [facility] (no value) [facility] Result panel 781 (unknown) (no date) (unknown) [facility] (no value) [facility] Result panel 782 (unknown) (no date) (unknown) [facility] (no value) [facility] Result panel 783 (unknown) (no date) (unknown) [facility] (no value) [facility] Result panel 784 (unknown) (no date) (unknown) [facility] (no value) [facility] Result panel 785 (unknown) (no date) (unknown) [facility] (no value) [facility] Result panel 786 (unknown) (no date) (unknown) [facility] (no value) [facility] Result panel 787 (unknown) (no date) (unknown) [facility] (no value) [facility] Result panel 788 (unknown) (no date) (unknown) [facility] (no value) [facility] Result panel 789 (unknown) (no date) (unknown) [facility] (no value) [facility] Result panel 790 (unknown) (no date) (unknown) [facility] (no value) [facility] Result panel 791 (unknown) (no date) (unknown) [facility] (no value) [facility] Result panel 792 (unknown) (no date) (unknown) [facility] (no value) [facility] Result panel 793 (unknown) (no date) (unknown) [facility] (no value) [facility] Result panel 794 (unknown) (no date) (unknown) [facility] (no value) [facility] Result panel 795 (unknown) (no date) (unknown) [facility] (no value) [facility] Result panel 796 (unknown) (no date) (unknown) [facility] (no value) [facility] Result panel 797 (unknown) (no date) (unknown) [facility] (no value) [facility] Result panel 798 (unknown) (no date) (unknown) [facility] (no value) [facility] Result panel 799 (unknown) (no date) (unknown) [facility] (no value) [facility] Result panel 800 (unknown) (no date) (unknown) [facility] (no value) [facility] Result panel 801 (unknown) (no date) (unknown) [facility] (no value) [facility] Result panel 802 (unknown) (no date) (unknown) [facility] (no value) [facility] Result panel 803 (unknown) (no date) (unknown) [facility] (no value) [facility] Result panel 804 (unknown) (no date) (unknown) [facility] (no value) [facility] Result panel 805 (unknown) (no date) (unknown) [facility] (no value) [facility] Result panel 806 (unknown) (no date) (unknown) [facility] (no value) [facility] Result panel 807 (unknown) (no date) (unknown) [facility] (no value) [facility] Result panel 808 (unknown) (no date) (unknown) [facility] (no value) [facility] Result panel 809 (unknown) (no date) (unknown) [facility] (no value) [facility] Result panel 810 (unknown) (no date) (unknown) [facility] (no value) [facility] Result panel 811 (unknown) (no date) (unknown) [facility] (no value) [facility] Result panel 812 (unknown) (no date) (unknown) [facility] (no value) [facility] Result panel 813 (unknown) (no date) (unknown) [facility] (no value) [facility] Result panel 814 (unknown) (no date) (unknown) [facility] (no value) [facility] Result panel 815 (unknown) (no date) (unknown) [facility] (no value) [facility] Result panel 816 (unknown) (no date) (unknown) [facility] (no value) [facility] Result panel 817 (unknown) (no date) (unknown) [facility] (no value) [facility] Result panel 818 (unknown) (no date) (unknown) [facility] (no value) [facility] Result panel 819 (unknown) (no date) (unknown) [facility] (no value) [facility] Result panel 820 (unknown) (no date) (unknown) [facility] (no value) [facility] Result panel 821 (unknown) (no date) (unknown) [facility] (no value) [facility] Result panel 822 (unknown) (no date) (unknown) [facility] (no value) [facility] Result panel 823 (unknown) (no date) (unknown) [facility] (no value) [facility] Result panel 824 (unknown) (no date) (unknown) [facility] (no value) [facility] Result panel 825 (unknown) (no date) (unknown) [facility] (no value) [facility] Result panel 826 (unknown) (no date) (unknown) [facility] (no value) [facility] Result panel 827 (unknown) (no date) (unknown) [facility] (no value) [facility] Result panel 828 (unknown) (no date) (unknown) [facility] (no value) [facility] Result panel 829 (unknown) (no date) (unknown) [facility] (no value) [facility] Result panel 830 (unknown) (no date) (unknown) [facility] (no value) [facility] Result panel 831 (unknown) (no date) (unknown) [facility] (no value) [facility] Result panel 832 (unknown) (no date) (unknown) [facility] (no value) [facility] Result panel 833 (unknown) (no date) (unknown) [facility] (no value) [facility] Result panel 834 (unknown) (no date) (unknown) [facility] (no value) [facility] Result panel 835 (unknown) (no date) (unknown) [facility] (no value) [facility] Result panel 836 (unknown) (no date) (unknown) [facility] (no value) [facility] Result panel 837 (unknown) (no date) (unknown) [facility] (no value) [facility] Result panel 838 (unknown) (no date) (unknown) [facility] (no value) [facility] Result panel 839 (unknown) (no date) (unknown) [facility] (no value) [facility] Result panel 840 (unknown) (no date) (unknown) [facility] (no value) [facility] Result panel 841 (unknown) (no date) (unknown) [facility] (no value) [facility] Result panel 842 (unknown) (no date) (unknown) [facility] (no value) [facility] Result panel 843 (unknown) (no date) (unknown) [facility] (no value) [facility] Result panel 844 (unknown) (no date) (unknown) [facility] (no value) [facility] Result panel 845 (unknown) (no date) (unknown) [facility] (no value) [facility] Result panel 846 (unknown) (no date) (unknown) [facility] (no value) [facility] Result panel 847 (unknown) (no date) (unknown) [facility] (no value) [facility] Result panel 848 (unknown) (no date) (unknown) [facility] (no value) [facility] Result panel 849 (unknown) (no date) (unknown) [facility] (no value) [facility] Result panel 850 (unknown) (no date) (unknown) [facility] (no value) [facility] Result panel 851 (unknown) (no date) (unknown) [facility] (no value) [facility] Result panel 852 (unknown) (no date) (unknown) [facility] (no value) [facility] Result panel 853 (unknown) (no date) (unknown) [facility] (no value) [facility] Result panel 854 (unknown) (no date) (unknown) [facility] (no value) [facility] Result panel 855 (unknown) (no date) (unknown) [facility] (no value) [facility] Result panel 856 (unknown) (no date) (unknown) [facility] (no value) [facility] Result panel 857 (unknown) (no date) (unknown) [facility] (no value) [facility] Result panel 858 (unknown) (no date) (unknown) [facility] (no value) [facility] Result panel 859 (unknown) (no date) (unknown) [facility] (no value) [facility] Result panel 860 (unknown) (no date) (unknown) [facility] (no value) [facility] Result panel 861 (unknown) (no date) (unknown) [facility] (no value) [facility] Result panel 862 (unknown) (no date) (unknown) [facility] (no value) [facility] Result panel 863 (unknown) (no date) (unknown) [facility] (no value) [facility] Result panel 864 (unknown) (no date) (unknown) [facility] (no value) [facility] Result panel 865 (unknown) (no date) (unknown) [facility] (no value) [facility] Result panel 866 (unknown) (no date) (unknown) [facility] (no value) [facility] Result panel 867 (unknown) (no date) (unknown) [facility] (no value) [facility] Result panel 868 (unknown) (no date) (unknown) [facility] (no value) [facility] Result panel 869 (unknown) (no date) (unknown) [facility] (no value) [facility] Result panel 870 (unknown) (no date) (unknown) [facility] (no value) [facility] Result panel 871 (unknown) (no date) (unknown) [facility] (no value) [facility] Result panel 872 (unknown) (no date) (unknown) [facility] (no value) [facility] Result panel 873 (unknown) (no date) (unknown) [facility] (no value) [facility] Result panel 874 (unknown) (no date) (unknown) [facility] (no value) [facility] Result panel 875 (unknown) (no date) (unknown) [facility] (no value) [facility] Result panel 876 (unknown) (no date) (unknown) [facility] (no value) [facility] Result panel 877 (unknown) (no date) (unknown) [facility] (no value) [facility] Result panel 878 (unknown) (no date) (unknown) [facility] (no value) [facility] Result panel 879 (unknown) (no date) (unknown) [facility] (no value) [facility] Result panel 880 (unknown) (no date) (unknown) [facility] (no value) [facility] Result panel 881 (unknown) (no date) (unknown) [facility] (no value) [facility] Result panel 882 (unknown) (no date) (unknown) [facility] (no value) [facility] Result panel 883 (unknown) (no date) (unknown) [facility] (no value) [facility] Result panel 884 (unknown) (no date) (unknown) [facility] (no value) [facility] Result panel 885 (unknown) (no date) (unknown) [facility] (no value) [facility] Result panel 886 (unknown) (no date) (unknown) [facility] (no value) [facility] Result panel 887 (unknown) (no date) (unknown) [facility] (no value) [facility] Result panel 888 (unknown) (no date) (unknown) [facility] (no value) [facility] Result panel 889 (unknown) (no date) (unknown) [facility] (no value) [facility] Result panel 890 (unknown) (no date) (unknown) [facility] (no value) [facility] Result panel 891 (unknown) (no date) (unknown) [facility] (no value) [facility] Result panel 892 (unknown) (no date) (unknown) [facility] (no value) [facility] Result panel 893 (unknown) (no date) (unknown) [facility] (no value) [facility] Result panel 894 (unknown) (no date) (unknown) [facility] (no value) [facility] Result panel 895 (unknown) (no date) (unknown) [facility] (no value) [facility] Result panel 896 (unknown) (no date) (unknown) [facility] (no value) [facility] Result panel 897 (unknown) (no date) (unknown) [facility] (no value) [facility] Result panel 898 (unknown) (no date) (unknown) [facility] (no value) [facility] Result panel 899 (unknown) (no date) (unknown) [facility] (no value) [facility] Result panel 900 (unknown) (no date) (unknown) [facility] (no value) [facility] Result panel 901 (unknown) (no date) (unknown) [facility] (no value) [facility] Result panel 902 (unknown) (no date) (unknown) [facility] (no value) [facility] Result panel 903 (unknown) (no date) (unknown) [facility] (no value) [facility] Result panel 904 (unknown) (no date) (unknown) [facility] (no value) [facility] Result panel 905 (unknown) (no date) (unknown) [facility] (no value) [facility] Result panel 906 (unknown) (no date) (unknown) [facility] (no value) [facility] Result panel 907 (unknown) (no date) (unknown) [facility] (no value) [facility] Result panel 908 (unknown) (no date) (unknown) [facility] (no value) [facility] Result panel 909 (unknown) (no date) (unknown) [facility] (no value) [facility] Result panel 910 (unknown) (no date) (unknown) [facility]-In (no value) [facility] unknown) [facility] Result panel 911 (unknown) (no date) (unknown) [facility] Result panel 912 (unknown) (no date) (unknown) [facility]no value) [facility] Primary [facility]) [facility] Result panel 913 (unknown) (no (unknown) [facility]-In [facility] (no (units ( unknown) date) [facility] & [facility]) unknown) [facility] Result panel 914 (unknown) (no date) (unknown) [facility]no value) [facility] Result panel 915 (unknown) (no date) (unknown) [facility] (no value) [facility]) [facility] Result panel 916 (unknown) (no date) (unknown) [facility] (no value) [facility] Result panel 917 (unknown) (no date) (unknown) [facility] (no value) [facility] Result panel 918 (unknown) (no date) (unknown) [facility] (no value) [facility] Result panel 919 (unknown) (no date) (unknown) [facility] (no value) [facility] Result panel 920 (unknown) (no date) (unknown) [facility] (no value) [facility] Result panel 921 (unknown) (no date) (unknown) [facility] (no value) [facility] Result panel 922 (unknown) (no date) (unknown) [facility]no value) [facility] Result panel 923 (unknown) (no date) (unknown) [facility] (no value) [facility] Result panel 924 (unknown) (no date) (unknown) [facility] (no value) [facility] Result panel 925 (unknown) (no date) (unknown) [facility] (no value) [facility] Result panel 926 (unknown) (no date) (unknown) [facility] (no value) [facility] Result panel 927 (unknown) (no date) (unknown) [facility] (no value) [facility] Result panel 928 (unknown) (no date) (unknown) [facility] (no value) [facility] Result panel 929 (unknown) (no date) (unknown) [facility] (no value) [facility] Result panel 930 (unknown) (no date) (unknown) [facility] (no value) [facility] Result panel 931 (unknown) (no date) (unknown) [facility]no value) [facility] Result panel 932 (unknown) (no date) (unknown) [facility] (no value) [facility] Result panel 933 (unknown) (no date) (unknown) [facility] (no value) [facility] Result panel 934 (unknown) (no date) (unknown) [facility] (no value) [facility] Result panel 935 (unknown) (no date) (unknown) [facility] (no value) [facility] Result panel 936 (unknown) (no date) (unknown) [facility] (no value) [facility] Result panel 937 (unknown) (no date) (unknown) [facility]no value[facility] Result panel 938 (unknown) (no date) (unknown) [facility]no value) [facility] Result panel 939 (unknown) (no date) (unknown) [facility] (no value) [facility] Result panel 940 (unknown) (no date) (unknown) [facility] (no value) [facility] Result panel 941 (unknown) (no date) (unknown) [facility]no value) [facility] Result panel 942 (unknown) (no date) (unknown) [facility] (no value) [facility] Result panel 943 (unknown) (no date) (unknown) [facility] (no value) [facility] Result panel 944 (unknown) (no date) (unknown) [facility] (no value) [facility] Result panel 945 (unknown) (no date) (unknown) [facility] (no value) [facility] Result panel 946 (unknown) (no date) (unknown) [facility] (no value) [facility] Result panel 947 (unknown) (no date) (unknown) [facility] (no value) [facility] Result panel 948 (unknown) (no date) (unknown) [facility] (no value) [facility] Result panel 949 (unknown) (no date) (unknown) [facility] (no value) [facility] Result panel 950 (unknown) (no date) (unknown) [facility]no value[facility] Result panel 951 (unknown) (no date) (unknown) [facility]no value) [facility] Result panel 952 (unknown) (no date) (unknown) [facility] (no value) [facility] Result panel 953 (unknown) (no date) (unknown) [facility] (no value) [facility] Result panel 954 (unknown) (no date) (unknown) [facility] (no value) [facility] Result panel 955 (unknown) (no date) (unknown) [facility] (no value) [facility] Result panel 956 (unknown) (no date) (unknown) [facility] (no value) [facility] Result panel 957 (unknown) (no date) (unknown) [facility] (no value) [facility] Result panel 958 (unknown) (no date) (unknown) [facility] (no value) [facility] Result panel 959 (unknown) (no date) (unknown) [facility] (no value) [facility] Result panel 960 (unknown) (no date) (unknown) [facility] (no value) [facility] Result panel 961 (unknown) (no date) (unknown) [facility] (no value) [facility] Result panel 962 (unknown) (no date) (unknown) [facility] (no value) [facility] Result panel 963 (unknown) (no date) (unknown) [facility] (no value) [facility] Result panel 964 (unknown) (no date) (unknown) [facility] (no value) [facility] Result panel 965 (unknown) (no date) (unknown) [facility] (no value) [facility] Result panel 966 (unknown) (no date) (unknown) [facility] (no value) [facility] Result panel 967 (unknown) (no date) (unknown) [facility] (no value) [facility] Result panel 968 (unknown) (no date) (unknown) [facility] (no value) [facility] Result panel 969 (unknown) (no date) (unknown) [facility] (no value) [facility] Result panel 970 (unknown) (no date) (unknown) [facility] (no value) [facility] Result panel 971 (unknown) (no date) (unknown) [facility] (no value) [facility] Result panel 972 (unknown) (no date) (unknown) [facility] (no value) [facility] Result panel 973 (unknown) (no date) (unknown) [facility] (no value) [facility] Result panel 974 (unknown) (no date) (unknown) [facility] (no value) [facility] Result panel 975 (unknown) (no date) (unknown) [facility] (no value) [facility] Result panel 976 (unknown) (no date) (unknown) [facility] (no value) [facility] Result panel 977 (unknown) (no date) (unknown) [facility] (no value) [facility] Result panel 978 (unknown) (no date) (unknown) [facility] (no value) [facility] Result panel 979 (unknown) (no date) (unknown) [facility] (no value) [facility] Result panel 980 (unknown) (no date) (unknown) [facility] (no value) [facility] Result panel 981 (unknown) (no date) (unknown) [facility] (no value) [facility] Result panel 982 (unknown) (no date) (unknown) [facility] (no value) [facility] Result panel 983 (unknown) (no date) (unknown) [facility] (no value) [facility] Result panel 984 (unknown) (no date) (unknown) [facility] (no value) [facility] Result panel 985 (unknown) (no date) (unknown) [facility] (no value) [facility] Result panel 986 (unknown) (no date) (unknown) [facility] (no value) [facility] Result panel 987 (unknown) (no date) (unknown) [facility] (no value) [facility] Result panel 988 (unknown) (no date) (unknown) [facility] (no value) [facility] Result panel 989 (unknown) (no date) (unknown) [facility] (no value) [facility] Result panel 990 (unknown) (no date) (unknown) [facility] (no value) [facility] Result panel 991 (unknown) (no date) (unknown) [facility] (no value) [facility] Result panel 992 (unknown) (no date) (unknown) [facility] (no value) [facility] Result panel 993 (unknown) (no date) (unknown) [facility] (no value) [facility] Result panel 994 (unknown) (no date) (unknown) [facility] (no value) [facility] Result panel 995 (unknown) (no date) (unknown) [facility] (no value) [facility] Result panel 996 (unknown) (no date) (unknown) [facility] (no value) [facility] Result panel 997 (unknown) (no date) (unknown) [facility] (no value) [facility] Result panel 998 (unknown) (no date) (unknown) [facility] (no value) [facility] Result panel 999 (unknown) (no date) (unknown) [facility] (no value) [facility] Result panel 1000 (unknown) (no date) (unknown) [facility] (no value) [facility] Result panel 1001 (unknown) (no date) (unknown) [facility] (no value) [facility] Result panel 1002 (unknown) (no date) (unknown) [facility] (no value) [facility] Result panel 1003 (unknown) (no date) (unknown) [facility] (no value) [facility] Result panel 1004 (unknown) (no date) (unknown) [facility] (no value) [facility] Result panel 1005 (unknown) (no date) (unknown) [facility] (no value) [facility] Result panel 1006 (unknown) (no date) (unknown) [facility] (no value) [facility] Result panel 1007 (unknown) (no date) (unknown) [facility] (no value) [facility] Result panel 1008 (unknown) (no date) (unknown) [facility] (no value) [facility] Result panel 1009 (unknown) (no date) (unknown) [facility] (no value) [facility] Result panel 1010 (unknown) (no date) (unknown) [facility] (no value) [facility] Result panel 1011 (unknown) (no date) (unknown) [facility] (no value) [facility] Result panel 1012 (unknown) (no date) (unknown) [facility] (no value) [facility] Result panel 1013 (unknown) (no date) (unknown) [facility] (no value) [facility] Result panel 1014 (unknown) (no date) (unknown) [facility] (no value) [facility] Result panel 1015 (unknown) (no date) (unknown) [facility] (no value) [facility] Result panel 1016 (unknown) (no date) (unknown) [facility] (no value) [facility] Result panel 1017 (unknown) (no date) (unknown) [facility] (no value) [facility] Result panel 1018 (unknown) (no date) (unknown) [facility] (no value) [facility] Result panel 1019 (unknown) (no date) (unknown) [facility] (no value) [facility] Result panel 1020 (unknown) (no date) (unknown) [facility] (no value) [facility] Result panel 1021 (unknown) (no date) (unknown) [facility] (no value) [facility] Result panel 1022 (unknown) (no date) (unknown) [facility] (no value) [facility] Result panel 1023 (unknown) (no date) (unknown) [facility] (no value) [facility] Result panel 1024 (unknown) (no date) (unknown) [facility] (no value) [facility] Result panel 1025 (unknown) (no date) (unknown) [facility] (no value) [facility] Result panel 1026 (unknown) (no date) (unknown) [facility] (no value) [facility] Result panel 1027 (unknown) (no date) (unknown) [facility] (no value) [facility] Result panel 1028 (unknown) (no date) (unknown) [facility] (no value) [facility] Result panel 1029 (unknown) (no date) (unknown) [facility] (no value) [facility] Result panel 1030 (unknown) (no date) (unknown) [facility] (no value) [facility] Result panel 1031 (unknown) (no date) (unknown) [facility] (no value) [facility] Result panel 1032 (unknown) (no date) (unknown) [facility] (no value) [facility] Result panel 1033 (unknown) (no date) (unknown) [facility] (no value) [facility] Result panel 1034 (unknown) (no date) (unknown) [facility] (no value) [facility] Result panel 1035 (unknown) (no date) (unknown) [facility] (no value) [facility] Result panel 1036 (unknown) (no date) (unknown) [facility] (no value) [facility] Result panel 1037 (unknown) (no date) (unknown) [facility] (no value) [facility] Result panel 1038 (unknown) (no date) (unknown) [facility] (no value) [facility] Result panel 1039 (unknown) (no date) (unknown) [facility] (no value) [facility] Result panel 1040 (unknown) (no date) (unknown) [facility] (no value) [facility] Result panel 1041 (unknown) (no date) (unknown) [facility] (no value) [facility] Result panel 1042 (unknown) (no date) (unknown) [facility] (no value) [facility] Result panel 1043 (unknown) (no date) (unknown) [facility] (no value) [facility] Result panel 1044 (unknown) (no date) (unknown) [facility] (no value) [facility] Result panel 1045 (unknown) (no date) (unknown) [facility] (no value) [facility] Result panel 1046 (unknown) (no date) (unknown) [facility] (no value) [facility] Result panel 1047 (unknown) (no date) (unknown) [facility] (no value) [facility] Result panel 1048 (unknown) (no date) (unknown) [facility] (no value) [facility] Result panel 1049 (unknown) (no date) (unknown) [facility] (no value) [facility] Result panel 1050 (unknown) (no date) (unknown) [facility] (no value) [facility] Result panel 1051 (unknown) (no date) (unknown) [facility] (no value) [facility] Result panel 1052 (unknown) (no date) (unknown) [facility] (no value) [facility] Result panel 1053 (unknown) (no date) (unknown) [facility] (no value) [facility] Result panel 1054 (unknown) (no date) (unknown) [facility] (no value) [facility] Result panel 1055 (unknown) (no date) (unknown) [facility] (no value) [facility] Result panel 1056 (unknown) (no date) (unknown) [facility] (no value) [facility] Result panel 1057 (unknown) (no date) (unknown) [facility] (no value) [facility] Result panel 1058 (unknown) (no date) (unknown) [facility] (no value) [facility] Result panel 1059 (unknown) (no date) (unknown) [facility] (no value) [facility] Result panel 1060 (unknown) (no date) (unknown) [facility] (no value) [facility] Result panel 1061 (unknown) (no date) (unknown) [facility] (no value) [facility] Result panel 1062 (unknown) (no date) (unknown) [facility] (no value) [facility] Result panel 1063 (unknown) (no date) (unknown) [facility] (no value) [facility] Result panel 1064 (unknown) (no date) (unknown) [facility] (no value) [facility] Result panel 1065 (unknown) (no date) (unknown) [facility] (no value) [facility] Result panel 1066 (unknown) (no date) (unknown) [facility] (no value) [facility] Result panel 1067 (unknown) (no date) (unknown) [facility] (no value) [facility] Result panel 1068 (unknown) (no date) (unknown) [facility] (no value) [facility] Result panel 1069 (unknown) (no date) (unknown) [facility] (no value) [facility] Result panel 1070 (unknown) (no date) (unknown) [facility] (no value) [facility] Result panel 1071 (unknown) (no date) (unknown) [facility] (no value) [facility] Result panel 1072 (unknown) (no date) (unknown) [facility] (no value) [facility] Result panel 1073 (unknown) (no date) (unknown) [facility] (no value) [facility] Result panel 1074 (unknown) (no date) (unknown) [facility] (no value) [facility] Result panel 1075 (unknown) (no date) (unknown) [facility] (no value) [facility] Result panel 1076 (unknown) (no date) (unknown) [facility] (no value) [facility] Result panel 1077 (unknown) (no date) (unknown) [facility] (no value) [facility] Result panel 1078 (unknown) (no date) (unknown) [facility] (no value) [facility] Result panel 1079 (unknown) (no date) (unknown) [facility] (no value) [facility] Result panel 1080 (unknown) (no date) (unknown) [facility]no value[facility] Result panel 1081 (unknown) (no date) (unknown) [facility] (no value) [facility] Result panel 1082 (unknown) (no date) (unknown) [facility] (no value) [facility] Result panel 1083 (unknown) (no date) (unknown) [facility] (no value) [facility] Result panel 1084 (unknown) (no date) (unknown) [facility] (no value) [facility] Result panel 1085 (unknown) (no date) (unknown) [facility] (no value) [facility] Result panel 1086 (unknown) (no date) (unknown) [facility] (no value) [facility] Result panel 1087 (unknown) (no date) (unknown) [facility] (no value) [facility] Result panel 1088 (unknown) (no date) (unknown) [facility] (no value) [facility] Result panel 1089 (unknown) (no date) (unknown) [facility] (no value) [facility] Result panel 1090 (unknown) (no date) (unknown) [facility] (no value) [facility] Result panel 1091 (unknown) (no date) (unknown) [facility] (no value) [facility] Result panel 1092 (unknown) (no date) (unknown) [facility] (no value) [facility] Result panel 1093 (unknown) (no date) (unknown) [facility] (no value) [facility] Result panel 1094 (unknown) (no date) (unknown) [facility] (no value) [facility] Result panel 1095 (unknown) (no date) (unknown) [facility] (no value) [facility] Result panel 1096 (unknown) (no date) (unknown) [facility] (no value) [facility] Result panel 1097 (unknown) (no date) (unknown) [facility] (no value) [facility] Result panel 1098 (unknown) (no date) (unknown) [facility] (no value) [facility] Result panel 1099 (unknown) (no date) (unknown) [facility] (no value) [facility] Result panel 1100 (unknown) (no date) (unknown) [facility] (no value) [facility] Result panel 1101 (unknown) (no date) (unknown) [facility] (no value) [facility] Result panel 1102 (unknown) (no date) (unknown) [facility] (no value) [facility] Result panel 1103 (unknown) (no date) (unknown) [facility] (no value) [facility] Result panel 1104 (unknown) (no date) (unknown) [facility] (no value) [facility] Result panel 1105 (unknown) (no date) (unknown) [facility] (no value) [facility] Result panel 1106 (unknown) (no date) (unknown) [facility] (no value) [facility] Result panel 1107 (unknown) (no date) (unknown) [facility] (no value) [facility] Result panel 1108 (unknown) (no date) (unknown) [facility] (no value) [facility] Result panel 1109 (unknown) (no date) (unknown) [facility] (no value) [facility] Result panel 1110 (unknown) (no date) (unknown) [facility] (no value) [facility] Result panel 1111 (unknown) (no date) (unknown) [facility] (no value) [facility] Result panel 1112 (unknown) (no date) (unknown) [facility] (no value) [facility] Result panel 1113 (unknown) (no date) (unknown) [facility] (no value) [facility] Result panel 1114 (unknown) (no date) (unknown) [facility] (no value) [facility] Result panel 1115 (unknown) (no date) (unknown) [facility] (no value) [facility] Result panel 1116 (unknown) (no date) (unknown) [facility] (no value) [facility] Result panel 1117 (unknown) (no date) (unknown) [facility] (no value) [facility] Result panel 1118 (unknown) (no date) (unknown) [facility] (no value) [facility] Result panel 1119 (unknown) (no date) (unknown) [facility] (no value) [facility] Result panel 1120 (unknown) (no date) (unknown) [facility] (no value) [facility] Result panel 1121 (unknown) (no date) (unknown) [facility] (no value) [facility] Result panel 1122 (unknown) (no date) (unknown) [facility] (no value) [facility] Result panel 1123 (unknown) (no date) (unknown) [facility] (no value) [facility] Result panel 1124 (unknown) (no date) (unknown) [facility] (no value) [facility] Result panel 1125 (unknown) (no date) (unknown) [facility] (no value) [facility] Result panel 1126 (unknown) (no date) (unknown) [facility] (no value) [facility] Result panel 1127 (unknown) (no date) (unknown) [facility] (no value) [facility] Result panel 1128 (unknown) (no date) (unknown) [facility] (no value) [facility] Result panel 1129 (unknown) (no date) (unknown) [facility] (no value) [facility] Result panel 1130 (unknown) (no date) (unknown) [facility] (no value) [facility] Result panel 1131 (unknown) (no date) (unknown) [facility] (no value) [facility] Result panel 1132 (unknown) (no date) (unknown) [facility] (no value) [facility] Result panel 1133 (unknown) (no date) (unknown) [facility] (no value) [facility] Result panel 1134 (unknown) (no date) (unknown) [facility] (no value) [facility] Result panel 1135 (unknown) (no date) (unknown) [facility] (no value) [facility] Result panel 1136 (unknown) (no date) (unknown) [facility] (no value) [facility] Result panel 1137 (unknown) (no date) (unknown) [facility] (no value) [facility] Result panel 1138 (unknown) (no date) (unknown) [facility] (no value) [facility] Result panel 1139 (unknown) (no date) (unknown) [facility] (no value) [facility] Result panel 1140 (unknown) (no date) (unknown) [facility] (no value) [facility] Result panel 1141 (unknown) (no date) (unknown) [facility] (no value) [facility] Result panel 1142 (unknown) (no date) (unknown) [facility] (no value) [facility] Result panel 1143 (unknown) (no date) (unknown) [facility] (no value) [facility] Result panel 1144 (unknown) (no date) (unknown) [facility] (no value) [facility] Result panel 1145 (unknown) (no date) (unknown) [facility] (no value) [facility] Result panel 1146 (unknown) (no date) (unknown) [facility] (no value) [facility] Result panel 1147 (unknown) (no date) (unknown) [facility] (no value) [facility] Result panel 1148 (unknown) (no date) (unknown) [facility] (no value) [facility] Result panel 1149 (unknown) (no date) (unknown) [facility] (no value) [facility] Result panel 1150 (unknown) (no date) (unknown) [facility] (no value) [facility] Result panel 1151 (unknown) (no date) (unknown) [facility] (no value) [facility] Result panel 1152 (unknown) (no date) (unknown) [facility] (no value) [facility] Result panel 1153 (unknown) (no date) (unknown) [facility] (no value) [facility] Result panel 1154 (unknown) (no date) (unknown) [facility] (no value) [facility] Result panel 1155 (unknown) (no date) (unknown) [facility] (no value) [facility] Result panel 1156 (unknown) (no date) (unknown) [facility] (no value) [facility] Result panel 1157 (unknown) (no date) (unknown) [facility] (no value) [facility] Result panel 1158 (unknown) (no date) (unknown) [facility] (no value) [facility] Result panel 1159 (unknown) (no date) (unknown) [facility] (no value) [facility] Result panel 1160 (unknown) (no date) (unknown) [facility] (no value) [facility] Result panel 1161 (unknown) (no date) (unknown) [facility] (no value) [facility] Result panel 1162 (unknown) (no date) (unknown) [facility] (no value) [facility] Result panel 1163 (unknown) (no date) (unknown) [facility] (no value) [facility] Result panel 1164 (unknown) (no date) (unknown) [facility] (no value) [facility] Result panel 1165 (unknown) (no date) (unknown) [facility] (no value) [facility] Result panel 1166 (unknown) (no date) (unknown) [facility] (no value) [facility] Result panel 1167 (unknown) (no date) (unknown) [facility] (no value) [facility] Result panel 1168 (unknown) (no date) (unknown) [facility] (no value) [facility] Result panel 1169 (unknown) (no date) (unknown) [facility] (no value) [facility] Result panel 1170 (unknown) (no date) (unknown) [facility] (no value) [facility] Result panel 1171 (unknown) (no date) (unknown) [facility] (no value) [facility] Result panel 1172 (unknown) (no date) (unknown) [facility] (no value) [facility] Result panel 1173 (unknown) (no date) (unknown) [facility] (no value) [facility] Result panel 1174 (unknown) (no date) (unknown) [facility] (no value) [facility] Result panel 1175 (unknown) (no date) (unknown) [facility] (no value) [facility] Result panel 1176 (unknown) (no date) (unknown) [facility] (no value) [facility] Result panel 1177 (unknown) (no date) (unknown) [facility] (no value) [facility] Result panel 1178 (unknown) (no date) (unknown) [facility] (no value) [facility] Result panel 1179 (unknown) (no date) (unknown) [facility] (no value) [facility] Result panel 1180 (unknown) (no date) (unknown) [facility] (no value) [facility] Result panel 1181 (unknown) (no date) (unknown) [facility] (no value) [facility] Result panel 1182 (unknown) (no date) (unknown) [facility] (no value) [facility] Result panel 1183 (unknown) (no date) (unknown) [facility] (no value) [facility] Result panel 1184 (unknown) (no date) (unknown) [facility] (no value) [facility] Result panel 1185 (unknown) (no date) (unknown) [facility] (no value) [facility] Result panel 1186 (unknown) (no date) (unknown) [facility] (no value) [facility] Result panel 1187 (unknown) (no date) (unknown) [facility] (no value) [facility] Result panel 1188 (unknown) (no date) (unknown) [facility] (no value) [facility] Result panel 1189 (unknown) (no date) (unknown) [facility] (no value) [facility] Result panel 1190 (unknown) (no date) (unknown) [facility] (no value) [facility] Result panel 1191 (unknown) (no date) (unknown) [facility] (no value) [facility] Result panel 1192 (unknown) (no date) (unknown) [facility] (no value) [facility] Result panel 1193 (unknown) (no date) (unknown) [facility] (no value) [facility] Result panel 1194 (unknown) (no date) (unknown) [facility] (no value) [facility] Result panel 1195 (unknown) (no date) (unknown) [facility] (no value) [facility] Result panel 1196 (unknown) (no date) (unknown) [facility] (no value) [facility] Result panel 1197 (unknown) (no date) (unknown) [facility] (no value) [facility] Result panel 1198 (unknown) (no date) (unknown) [facility] (no value) [facility] Result panel 1199 (unknown) (no date) (unknown) [facility] (no value) [facility] Result panel 1200 (unknown) (no date) (unknown) [facility] (no value) [facility] Result panel 1201 (unknown) (no date) (unknown) [facility] (no value) [facility] Result panel 1202 (unknown) (no date) (unknown) [facility] (no value) [facility] Result panel 1203 (unknown) (no date) (unknown) [facility] (no value) [facility] Result panel 1204 (unknown) (no date) (unknown) [facility] (no value) [facility] Result panel 1205 (unknown) (no date) (unknown) [facility] (no value) [facility] Result panel 1206 (unknown) (no date) (unknown) [facility] (no value) [facility] Result panel 1207 (unknown) (no date) (unknown) [facility] (no value) [facility] Result panel 1208 (unknown) (no date) (unknown) [facility] (no value) [facility] Result panel 1209 (unknown) (no date) (unknown) [facility] (no value) [facility] Result panel 1210 (unknown) (no date) (unknown) [facility] (no value) [facility] Result panel 1211 (unknown) (no date) (unknown) [facility] (no value) [facility] Result panel 1212 (unknown) (no date) (unknown) [facility] (no value) [facility] Result panel 1213 (unknown) (no date) (unknown) [facility] (no value) [facility] Result panel 1214 (unknown) (no date) (unknown) [facility] (no value) [facility] Result panel 1215 (unknown) (no date) (unknown) [facility] (no value) [facility] Result panel 1216 (unknown) (no date) (unknown) [facility] (no value) [facility] Result panel 1217 (unknown) (no date) (unknown) [facility] (no value) [facility] Result panel 1218 (unknown) (no date) (unknown) [facility] (no value) [facility] Result panel 1219 (unknown) (no date) (unknown) [facility] (no value) [facility] Result panel 1220 (unknown) (no date) (unknown) [facility] (no value) [facility] Result panel 1221 (unknown) (no date) (unknown) [facility] (no value) [facility] Result panel 1222 (unknown) (no date) (unknown) [facility] (no value) [facility] Result panel 1223 (unknown) (no date) (unknown) [facility] (no value) [facility] Result panel 1224 (unknown) (no date) (unknown) [facility] (no value) [facility] Result panel 1225 (unknown) (no date) (unknown) [facility] (no value) [facility] Result panel 1226 (unknown) (no date) (unknown) [facility] (no value) [facility] Result panel 1227 (unknown) (no date) (unknown) [facility] (no value) [facility] Result panel 1228 (unknown) (no date) (unknown) [facility] (no value) [facility] Result panel 1229 (unknown) (no date) (unknown) [facility] (no value) [facility] Result panel 1230 (unknown) (no date) (unknown) [facility] (no value) [facility] Result panel 1231 (unknown) (no date) (unknown) [facility] (no value) [facility] Result panel 1232 (unknown) (no date) (unknown) [facility] (no value) [facility] Result panel 1233 (unknown) (no date) (unknown) [facility] (no value) [facility] Result panel 1234 (unknown) (no date) (unknown) [facility] (no value) [facility] Result panel 1235 (unknown) (no date) (unknown) [facility] (no value) [facility] Result panel 1236 (unknown) (no date) (unknown) [facility] (no value) [facility] Result panel 1237 (unknown) (no date) (unknown) [facility] (no value) [facility] Result panel 1238 (unknown) (no date) (unknown) [facility] (no value) [facility] Result panel 1239 (unknown) (no date) (unknown) [facility] (no value) [facility] Result panel 1240 (unknown) (no date) (unknown) [facility] (no value) [facility] Result panel 1241 (unknown) (no date) (unknown) [facility] (no value) [facility] Result panel 1242 (unknown) (no date) (unknown) [facility] (no value) [facility] Result panel 1243 (unknown) (no date) (unknown) [facility] (no value) [facility] Result panel 1244 (unknown) (no date) (unknown) [facility] (no value) [facility] Result panel 1245 (unknown) (no date) (unknown) [facility] (no value) [facility] Result panel 1246 (unknown) (no date) (unknown) [facility] (no value) [facility] [facility] Result panel 1247 (unknown) (no date) (unknown) [facility] (no value[facility] Result panel 1248 (unknown) (no date) (unknown) [facility] (no value) [facility] Result panel 1249 (unknown) (no date) (unknown) [facility] (no value) [facility] Result panel 1250 (unknown) (no date) (unknown) [facility] (no value) [facility] Result panel 1251 (unknown) (no date) (unknown) [facility] (no value) [facility] Result panel 1252 (unknown) (no date) (unknown) [facility] (no value) [facility] Result panel 1253 (unknown) (no date) (unknown) [facility] (no value) [facility] Result panel 1254 (unknown) (no date) (unknown) [facility] (no value) [facility] Result panel 1255 (unknown) (no date) (unknown) [facility] (no value) [facility] Result panel 1256 (unknown) (no date) (unknown) [facility] (no value) [facility] Result panel 1257 (unknown) (no date) (unknown) [facility] (no value) [facility] Result panel 1258 (unknown) (no date) (unknown) [facility] (no value) [facility] Result panel 1259 (unknown) (no date) (unknown) [facility] (no value) [facility] Result panel 1260 (unknown) (no date) (unknown) [facility] (no value) [facility] Result panel 1261 (unknown) (no date) (unknown) [facility] (no value) [facility] Result panel 1262 (unknown) (no date) (unknown) [facility] (no value) [facility] Result panel 1263 (unknown) (no date) (unknown) [facility] (no value) [facility] Result panel 1264 (unknown) (no date) (unknown) [facility] (no value) [facility] Result panel 1265 (unknown) (no date) (unknown) [facility] (no value) [facility] Result panel 1266 (unknown) (no date) (unknown) [facility] (no value) [facility] Result panel 1267 (unknown) (no date) (unknown) [facility] (no value) [facility] Result panel 1268 (unknown) (no date) (unknown) [facility] (no value) [facility] Result panel 1269 (unknown) (no date) (unknown) [facility] (no value) [facility] Result panel 1270 (unknown) (no date) (unknown) [facility] (no value) [facility] Result panel 1271 (unknown) (no date) (unknown) [facility] (no value) [facility] Result panel 1272 (unknown) (no date) (unknown) [facility] (no value) [facility] Result panel 1273 (unknown) (no date) (unknown) [facility] (no value) [facility] Result panel 1274 (unknown) (no date) (unknown) [facility] (no value) [facility] Result panel 1275 (unknown) (no date) (unknown) [facility] (no value) [facility] Result panel 1276 (unknown) (no date) (unknown) [facility] (no value) [facility] Result panel 1277 (unknown) (no date) (unknown) [facility] (no value) [facility] Result panel 1278 (unknown) (no date) (unknown) [facility] (no value) [facility] Result panel 1279 (unknown) (no date) (unknown) [facility] (no value) [facility] Result panel 1280 (unknown) (no date) (unknown) [facility] (no value) [facility] Result panel 1281 (unknown) (no date) (unknown) [facility] (no value) [facility] Result panel 1282 (unknown) (no date) (unknown) [facility] (no value) [facility] Result panel 1283 (unknown) (no date) (unknown) [facility] (no value) [facility] Result panel 1284 (unknown) (no date) (unknown) [facility] (no value) [facility] Result panel 1285 (unknown) (no date) (unknown) [facility] (no value) [facility] Result panel 1286 (unknown) (no date) (unknown) [facility] (no value) [facility] Result panel 1287 (unknown) (no date) (unknown) [facility] (no value) [facility] Result panel 1288 (unknown) (no date) (unknown) [facility] (no value) [facility] Result panel 1289 (unknown) (no date) (unknown) [facility] (no value) [facility] Result panel 1290 (unknown) (no date) (unknown) [facility] (no value) [facility] Result panel 1291 (unknown) (no date) (unknown) [facility] (no value) [facility] Result panel 1292 (unknown) (no date) (unknown) [facility] (no value) [facility] Result panel 1293 (unknown) (no date) (unknown) [facility] (no value) [facility] Result panel 1294 (unknown) (no date) (unknown) [facility] (no value) [facility] Result panel 1295 (unknown) (no date) (unknown) [facility] (no value) [facility] Result panel 1296 (unknown) (no date) (unknown) [facility] (no value) [facility] Result panel 1297 (unknown) (no date) (unknown) [facility] (no value) [facility] Result panel 1298 (unknown) (no date) (unknown) [facility] (no value) [facility] Result panel 1299 (unknown) (no date) (unknown) [facility] (no value) [facility] Result panel 1300 (unknown) (no date) (unknown) [facility] (no value) [facility] Result panel 1301 (unknown) (no date) (unknown) [facility] (no value) [facility] Result panel 1302 (unknown) (no date) (unknown) [facility] (no value) [facility] Result panel 1303 (unknown) (no date) (unknown) [facility] (no value) [facility] Result panel 1304 (unknown) (no date) (unknown) [facility] (no value) [facility] Result panel 1305 (unknown) (no date) (unknown) [facility] (no value) [facility] Result panel 1306 (unknown) (no date) (unknown) [facility] (no value) [facility] Result panel 1307 (unknown) (no date) (unknown) [facility] (no value) [facility] Result panel 1308 (unknown) (no date) (unknown) [facility] (no value) [facility] Result panel 1309 (unknown) (no date) (unknown) [facility] (no value) [facility] Result panel 1310 (unknown) (no date) (unknown) [facility] (no value) [facility] Result panel 1311 (unknown) (no date) (unknown) [facility] (no value) [facility] Result panel 1312 (unknown) (no date) (unknown) [facility] (no value) [facility] Result panel 1313 (unknown) (no date) (unknown) [facility] (no value) [facility] Result panel 1314 (unknown) (no date) (unknown) [facility] (no value) [facility] Result panel 1315 (unknown) (no date) (unknown) [facility] (no value) [facility] Result panel 1316 (unknown) (no date) (unknown) [facility] (no value) [facility] Result panel 1317 (unknown) (no date) (unknown) [facility] (no value) [facility] Result panel 1318 (unknown) (no date) (unknown) [facility] (no value) [facility] Result panel 1319 (unknown) (no date) (unknown) [facility] (no value) [facility] Result panel 1320 (unknown) (no date) (unknown) [facility] (no value) [facility] Result panel 1321 (unknown) (no date) (unknown) [facility] (no value) [facility] Result panel 1322 (unknown) (no date) (unknown) [facility] (no value) [facility] Result panel 1323 (unknown) (no date) (unknown) [facility] (no value) [facility] Result panel 1324 (unknown) (no date) (unknown) [facility] (no value) [facility] Result panel 1325 (unknown) (no date) (unknown) [facility] (no value) [facility] Result panel 1326 (unknown) (no date) (unknown) [facility] (no value) [facility] Result panel 1327 (unknown) (no date) (unknown) [facility] (no value) [facility] Result panel 1328 (unknown) (no date) (unknown) [facility] (no value) [facility] Result panel 1329 (unknown) (no date) (unknown) [facility] (no value) [facility] Result panel 1330 (unknown) (no date) (unknown) [facility] (no value) [facility] Result panel 1331 (unknown) (no date) (unknown) [facility] (no value) [facility] Result panel 1332 (unknown) (no date) (unknown) [facility] (no value) [facility] Result panel 1333 (unknown) (no date) (unknown) [facility] (no value) [facility] Result panel 1334 (unknown) (no date) (unknown) [facility] (no value) [facility] Result panel 1335 (unknown) (no date) (unknown) [facility] (no value) [facility] Result panel 1336 (unknown) (no date) (unknown) [facility] (no value) [facility] Result panel 1337 (unknown) (no date) (unknown) [facility] (no value) [facility] Result panel 1338 (unknown) (no date) (unknown) [facility] (no value) [facility] Result panel 1339 (unknown) (no date) (unknown) [facility] (no value) [facility] Result panel 1340 (unknown) (no date) (unknown) [facility] (no value) [facility] Result panel 1341 (unknown) (no date) (unknown) [facility] (no value) [facility] Result panel 1342 (unknown) (no date) (unknown) [facility] (no value) [facility] Result panel 1343 (unknown) (no date) (unknown) [facility] (no value) [facility] Result panel 1344 (unknown) (no date) (unknown) [facility] (no value) [facility] Result panel 1345 (unknown) (no date) (unknown) [facility] (no value) [facility] Result panel 1346 (unknown) (no date) (unknown) [facility] (no value) [facility] Result panel 1347 (unknown) (no date) (unknown) [facility] (no value) [facility] Result panel 1348 (unknown) (no date) (unknown) [facility] (no value) [facility] Result panel 1349 (unknown) (no date) (unknown) [facility] (no value) [facility] Result panel 1350 (unknown) (no date) (unknown) [facility] (no value) [facility] Result panel 1351 (unknown) (no date) (unknown) [facility] (no value) [facility] Result panel 1352 (unknown) (no date) (unknown) [facility] (no value) [facility] Result panel 1353 (unknown) (no date) (unknown) [facility] (no value) [facility] Result panel 1354 (unknown) (no date) (unknown) [facility] (no value) [facility] Result panel 1355 (unknown) (no date) (unknown) [facility] (no value) [facility] Result panel 1356 (unknown) (no date) (unknown) [facility] (no value) [facility] Result panel 1357 (unknown) (no date) (unknown) [facility] (no value) [facility] Result panel 1358 (unknown) (no date) (unknown) [facility] (no value) [facility] Result panel 1359 (unknown) (no date) (unknown) [facility] (no value) [facility] Result panel 1360 (unknown) (no date) (unknown) [facility] (no value) [facility] Result panel 1361 (unknown) (no date) (unknown) [facility] (no value) [facility] Result panel 1362 (unknown) (no date) (unknown) [facility] (no value) [facility] Result panel 1363 (unknown) (no date) (unknown) [facility] (no value) [facility] Result panel 1364 (unknown) (no date) (unknown) [facility] (no value) [facility] Result panel 1365 (unknown) (no date) (unknown) [facility] (no value) [facility] Result panel 1366 (unknown) (no date) (unknown) [facility] (no value) [facility] Result panel 1367 (unknown) (no date) (unknown) [facility] (no value) [facility] Result panel 1368 (unknown) (no date) (unknown) [facility] (no value) [facility] Result panel 1369 (unknown) (no date) (unknown) [facility] (no value) [facility] Result panel 1370 (unknown) (no date) (unknown) [facility] (no value) [facility] Result panel 1371 (unknown) (no date) (unknown) [facility] (no value) [facility] Result panel 1372 (unknown) (no date) (unknown) [facility] (no value) [facility] Result panel 1373 (unknown) (no date) (unknown) [facility] (no value) [facility] Result panel 1374 (unknown) (no date) (unknown) [facility] (no value) [facility] Result panel 1375 (unknown) (no date) (unknown) [facility] (no value) [facility] Result panel 1376 (unknown) (no date) (unknown) [facility] (no value) [facility] Result panel 1377 (unknown) (no date) (unknown) [facility] (no value) [facility] Result panel 1378 (unknown) (no date) (unknown) [facility] (no value) [facility] Result panel 1379 (unknown) (no date) (unknown) [facility] (no value) [facility] Result panel 1380 (unknown) (no date) (unknown) [facility] (no value) [facility] Result panel 1381 (unknown) (no date) (unknown) [facility] (no value) [facility] Result panel 1382 (unknown) (no date) (unknown) [facility] (no value) [facility] Result panel 1383 (unknown) (no date) (unknown) [facility] (no value) [facility] Result panel 1384 (unknown) (no date) (unknown) [facility] (no value) [facility] Result panel 1385 (unknown) (no date) (unknown) [facility] (no value) [facility] Result panel 1386 (unknown) (no date) (unknown) [facility] (no value) [facility] Result panel 1387 (unknown) (no date) (unknown) [facility] (no value) [facility] Result panel 1388 (unknown) (no date) (unknown) [facility] (no value) [facility] Result panel 1389 (unknown) (no date) (unknown) [facility] (no value) [facility] Result panel 1390 (unknown) (no date) (unknown) [facility] (no value) [facility] Result panel 1391 (unknown) (no date) (unknown) [facility] (no value) [facility] Result panel 1392 (unknown) (no date) (unknown) [facility] (no value) [facility] Result panel 1393 (unknown) (no date) (unknown) [facility] (no value) [facility] Result panel 1394 (unknown) (no date) (unknown) [facility] (no value) [facility] Result panel 1395 (unknown) (no date) (unknown) [facility] (no value) [facility] Result panel 1396 (unknown) (no date) (unknown) [facility] (no value) [facility] Result panel 1397 (unknown) (no date) (unknown) [facility] (no value) [facility] Result panel 1398 (unknown) (no date) (unknown) [facility] (no value) [facility] Result panel 1399 (unknown) (no date) (unknown) [facility] (no value) [facility] Result panel 1400 (unknown) (no date) (unknown) [facility] (no value) [facility] Result panel 1401 (unknown) (no date) (unknown) [facility] (no value) [facility] Result panel 1402 (unknown) (no date) (unknown) [facility] (no value) [facility] Result panel 1403 (unknown) (no date) (unknown) [facility] (no value) [facility] Result panel 1404 (unknown) (no date) (unknown) [facility] (no value) [facility] Result panel 1405 (unknown) (no date) (unknown) [facility] (no value) [facility] Result panel 1406 (unknown) (no date) (unknown) [facility] (no value) [facility] Result panel 1407 (unknown) (no date) (unknown) [facility] (no value) [facility] Result panel 1408 (unknown) (no date) (unknown) [facility] (no value) [facility] Result panel 1409 (unknown) (no date) (unknown) [facility] (no value) [facility] Result panel 1410 (unknown) (no date) (unknown) [facility] (no value) [facility] Result panel 1411 (unknown) (no date) (unknown) [facility] (no value) [facility] Result panel 1412 (unknown) (no date) (unknown) [facility] (no value) [facility] Result panel 1413 (unknown) (no date) (unknown) [facility] (no value) [facility] Result panel 1414 (unknown) (no date) (unknown) [facility] (no value) [facility] [facility] Result panel 1415 (unknown) (no date) (unknown) [facility] value[facility] Result panel 1416 (unknown) (no date) (unknown) [facility] (no value) [facility] Result panel 1417 (unknown) (no date) (unknown) [facility] (no value) [facility] Result panel 1418 (unknown) (no date) (unknown) [facility] (no value) [facility] Result panel 1419 (unknown) (no date) (unknown) [facility] (no value) [facility] Result panel 1420 (unknown) (no date) (unknown) [facility] (no value) [facility] Result panel 1421 (unknown) (no date) (unknown) [facility] (no value) [facility] Result panel 1422 (unknown) (no date) (unknown) [facility] (no value) [facility] Result panel 1423 (unknown) (no date) (unknown) [facility] (no value) [facility] Result panel 1424 (unknown) (no date) (unknown) [facility] (no value) [facility] Result panel 1425 (unknown) (no date) (unknown) [facility] (no value) [facility] Result panel 1426 (unknown) (no date) (unknown) [facility] (no value) [facility] Result panel 1427 (unknown) (no date) (unknown) [facility] (no value) [facility] Result panel 1428 (unknown) (no date) (unknown) [facility] (no value) [facility] Result panel 1429 (unknown) (no date) (unknown) [facility] (no value) [facility] Result panel 1430 (unknown) (no date) (unknown) [facility] (no value) [facility] Result panel 1431 (unknown) (no date) (unknown) [facility] (no value) [facility] Result panel 1432 (unknown) (no date) (unknown) [facility] (no value) [facility] Result panel 1433 (unknown) (no date) (unknown) [facility] (no value) [facility] Result panel 1434 (unknown) (no date) (unknown) [facility] (no value) [facility] Result panel 1435 (unknown) (no date) (unknown) [facility] (no value) [facility] Result panel 1436 (unknown) (no date) (unknown) [facility] (no value) [facility] Result panel 1437 (unknown) (no date) (unknown) [facility] (no value) [facility] Result panel 1438 (unknown) (no date) (unknown) [facility] (no value) [facility] Result panel 1439 (unknown) (no date) (unknown) [facility] (no value) [facility] Result panel 1440 (unknown) (no date) (unknown) [facility] (no value) [facility] Result panel 1441 (unknown) (no date) (unknown) [facility] (no value) [facility] Result panel 1442 (unknown) (no date) (unknown) [facility] (no value) [facility] Result panel 1443 (unknown) (no date) (unknown) [facility] (no value) [facility] Result panel 1444 (unknown) (no date) (unknown) [facility] (no value) [facility] Result panel 1445 (unknown) (no date) (unknown) [facility] (no value) [facility] Result panel 1446 (unknown) (no date) (unknown) [facility] (no value) [facility] Result panel 1447 (unknown) (no date) (unknown) [facility] (no value) [facility] Result panel 1448 (unknown) (no date) (unknown) [facility] (no value) [facility] Result panel 1449 (unknown) (no date) (unknown) [facility] (no value) [facility] Result panel 1450 (unknown) (no date) (unknown) [facility] (no value) [facility] Result panel 1451 (unknown) (no date) (unknown) [facility] (no value) [facility] Result panel 1452 (unknown) (no date) (unknown) [facility] (no value) [facility] Result panel 1453 (unknown) (no date) (unknown) [facility] (no value) [facility] Result panel 1454 (unknown) (no date) (unknown) [facility] (no value) [facility] Result panel 1455 (unknown) (no date) (unknown) [facility] (no value) [facility] Result panel 1456 (unknown) (no date) (unknown) [facility] (no value) [facility] Result panel 1457 (unknown) (no date) (unknown) [facility] (no value) [facility] Result panel 1458 (unknown) (no date) (unknown) [facility] (no value) [facility] Result panel 1459 (unknown) (no date) (unknown) [facility] (no value) [facility] Result panel 1460 (unknown) (no date) (unknown) [facility] (no value) [facility] Result panel 1461 (unknown) (no date) (unknown) [facility] (no value) [facility] Result panel 1462 (unknown) (no date) (unknown) [facility] (no value) [facility] Result panel 1463 (unknown) (no date) (unknown) [facility] (no value) [facility] Result panel 1464 (unknown) (no date) (unknown) [facility] (no value) [facility] Result panel 1465 (unknown) (no date) (unknown) [facility] (no value) [facility] Result panel 1466 (unknown) (no date) (unknown) [facility] (no value) [facility] Result panel 1467 (unknown) (no date) (unknown) [facility] (no value) [facility] Result panel 1468 (unknown) (no date) (unknown) [facility] (no value) [facility] Result panel 1469 (unknown) (no date) (unknown) [facility] (no value) [facility] Result panel 1470 (unknown) (no date) (unknown) [facility] (no value) [facility] Result panel 1471 (unknown) (no date) (unknown) [facility] (no value) [facility] Result panel 1472 (unknown) (no date) (unknown) [facility] (no value) [facility] Result panel 1473 (unknown) (no date) (unknown) [facility] (no value) [facility] Result panel 1474 (unknown) (no date) (unknown) [facility] (no value) [facility] Result panel 1475 (unknown) (no date) (unknown) [facility] (no value) [facility] Result panel 1476 (unknown) (no date) (unknown) [facility] (no value) [facility] Result panel 1477 (unknown) (no date) (unknown) [facility] (no value) [facility] Result panel 1478 (unknown) (no date) (unknown) [facility] (no value) [facility] Result panel 1479 (unknown) (no date) (unknown) [facility] (no value) [facility] Result panel 1480 (unknown) (no date) (unknown) [facility] (no value) [facility] Result panel 1481 (unknown) (no date) (unknown) [facility] (no value) [facility] Result panel 1482 (unknown) (no date) (unknown) [facility] (no value) [facility] Result panel 1483 (unknown) (no date) (unknown) [facility] (no value) [facility] Result panel 1484 (unknown) (no date) (unknown) [facility] (no value) [facility] Result panel 1485 (unknown) (no date) (unknown) [facility] (no value) [facility] Result panel 1486 (unknown) (no date) (unknown) [facility] (no value) [facility] Result panel 1487 (unknown) (no date) (unknown) [facility] (no value) [facility] Result panel 1488 (unknown) (no date) (unknown) [facility] (no value) [facility] Result panel 1489 (unknown) (no date) (unknown) [facility] (no value) [facility] Result panel 1490 (unknown) (no date) (unknown) [facility] (no value) [facility] Result panel 1491 (unknown) (no date) (unknown) [facility] (no value) [facility] Result panel 1492 (unknown) (no date) (unknown) [facility] (no value) [facility] Result panel 1493 (unknown) (no date) (unknown) [facility] (no value) [facility] Result panel 1494 (unknown) (no date) (unknown) [facility] (no value) [facility] Result panel 1495 (unknown) (no date) (unknown) [facility] (no value) [facility] Result panel 1496 (unknown) (no date) (unknown) [facility] (no value) [facility] Result panel 1497 (unknown) (no date) (unknown) [facility] (no value) [facility] Result panel 1498 (unknown) (no date) (unknown) [facility] (no value) [facility] Result panel 1499 (unknown) (no date) (unknown) [facility] (no value) [facility] Result panel 1500 (unknown) (no date) (unknown) [facility] (no value) [facility] Result panel 1501 (unknown) (no date) (unknown) [facility] (no value) [facility] Result panel 1502 (unknown) (no date) (unknown) [facility] (no value) [facility] Result panel 1503 (unknown) (no date) (unknown) [facility] (no value) [facility] Result panel 1504 (unknown) (no date) (unknown) [facility] (no value) [facility] Result panel 1505 (unknown) (no date) (unknown) [facility] (no value) [facility] Result panel 1506 (unknown) (no date) (unknown) [facility] (no value) [facility] Result panel 1507 (unknown) (no date) (unknown) [facility] (no value) [facility] Result panel 1508 (unknown) (no date) (unknown) [facility] (no value) [facility] Result panel 1509 (unknown) (no date) (unknown) [facility] (no value) [facility] Result panel 1510 (unknown) (no date) (unknown) [facility] (no value) [facility] Result panel 1511 (unknown) (no date) (unknown) [facility] (no value) [facility] Result panel 1512 (unknown) (no date) (unknown) [facility] (no value) [facility] Result panel 1513 (unknown) (no date) (unknown) [facility] (no value) [facility] Result panel 1514 (unknown) (no date) (unknown) [facility] (no value) [facility] Result panel 1515 (unknown) (no date) (unknown) [facility] (no value) [facility] Result panel 1516 (unknown) (no date) (unknown) [facility] (no value) [facility] Result panel 1517 (unknown) (no date) (unknown) [facility] (no value) [facility] Result panel 1518 (unknown) (no date) (unknown) [facility] (no value) [facility] Result panel 1519 (unknown) (no date) (unknown) [facility] (no value) [facility] Result panel 1520 (unknown) (no date) (unknown) [facility] (no value) [facility] Result panel 1521 (unknown) (no date) (unknown) [facility] (no value) [facility] Result panel 1522 (unknown) (no date) (unknown) [facility] (no value) [facility] Result panel 1523 (unknown) (no date) (unknown) [facility] (no value) [facility] Result panel 1524 (unknown) (no date) (unknown) [facility] (no value) [facility] Result panel 1525 (unknown) (no date) (unknown) [facility] (no value) [facility] Result panel 1526 (unknown) (no date) (unknown) [facility] (no value) [facility] Result panel 1527 (unknown) (no date) (unknown) [facility] (no value) [facility] Result panel 1528 (unknown) (no date) (unknown) [facility] (no value) [facility] Result panel 1529 (unknown) (no date) (unknown) [facility] (no value) [facility] Result panel 1530 (unknown) (no date) (unknown) [facility] (no value) [facility] Result panel 1531 (unknown) (no date) (unknown) [facility] (no value) [facility] Result panel 1532 (unknown) (no date) (unknown) [facility] (no value) [facility] Result panel 1533 (unknown) (no date) (unknown) [facility] (no value) [facility] Result panel 1534 (unknown) (no date) (unknown) [facility] (no value) [facility] Result panel 1535 (unknown) (no date) (unknown) [facility] (no value) [facility] Result panel 1536 (unknown) (no date) (unknown) [facility] (no value) [facility] Result panel 1537 (unknown) (no date) (unknown) [facility] (no value) [facility] Result panel 1538 (unknown) (no date) (unknown) [facility] (no value) [facility] Result panel 1539 (unknown) (no date) (unknown) [facility] (no value) [facility] Result panel 1540 (unknown) (no date) (unknown) [facility] (no value) [facility] Result panel 1541 (unknown) (no date) (unknown) [facility] (no value) [facility] Result panel 1542 (unknown) (no date) (unknown) [facility] (no value) [facility] Result panel 1543 (unknown) (no date) (unknown) [facility] (no value) [facility] Result panel 1544 (unknown) (no date) (unknown) [facility] (no value) [facility] Result panel 1545 (unknown) (no date) (unknown) [facility] (no value) [facility] Result panel 1546 (unknown) (no date) (unknown) [facility] (no value) [facility] Result panel 1547 (unknown) (no date) (unknown) [facility] (no value) [facility] Result panel 1548 (unknown) (no date) (unknown) [facility] (no value) [facility] Result panel 1549 (unknown) (no date) (unknown) [facility] (no value) [facility] Result panel 1550 (unknown) (no date) (unknown) [facility] (no value) [facility] Result panel 1551 (unknown) (no date) (unknown) [facility] (no value) [facility] Result panel 1552 (unknown) (no date) (unknown) [facility] (no value) [facility] Result panel 1553 (unknown) (no date) (unknown) [facility] (no value) [facility] Result panel 1554 (unknown) (no date) (unknown) [facility] (no value) [facility] Result panel 1555 (unknown) (no date) (unknown) [facility] (no value) [facility] Result panel 1556 (unknown) (no date) (unknown) [facility] (no value) [facility] Result panel 1557 (unknown) (no date) (unknown) [facility] (no value) [facility] Result panel 1558 (unknown) (no date) (unknown) [facility] (no value) [facility] Result panel 1559 (unknown) (no date) (unknown) [facility] (no value) [facility] Result panel 1560 (unknown) (no date) (unknown) [facility] (no value) [facility] Result panel 1561 (unknown) (no date) (unknown) [facility] (no value) [facility] Result panel 1562 (unknown) (no date) (unknown) [facility] (no value) [facility] Result panel 1563 (unknown) (no date) (unknown) [facility] (no value) [facility] Result panel 1564 (unknown) (no date) (unknown) [facility] (no value) [facility] Result panel 1565 (unknown) (no date) (unknown) [facility] (no value) [facility] Result panel 1566 (unknown) (no date) (unknown) [facility] (no value) [facility] Result panel 1567 (unknown) (no date) (unknown) [facility] (no value) [facility] Result panel 1568 (unknown) (no date) (unknown) [facility] (no value) [facility] Result panel 1569 (unknown) (no date) (unknown) [facility] (no value) [facility] Result panel 1570 (unknown) (no date) (unknown) [facility] (no value) [facility] Result panel 1571 (unknown) (no date) (unknown) [facility] (no value) [facility] Result panel 1572 (unknown) (no date) (unknown) [facility] (no value) [facility] Result panel 1573 (unknown) (no date) (unknown) [facility] (no value) [facility] Result panel 1574 (unknown) (no date) (unknown) [facility] (no value) [facility] Result panel 1575 (unknown) (no date) (unknown) [facility] (no value) [facility] Result panel 1576 (unknown) (no date) (unknown) [facility] (no value) [facility] Result panel 1577 (unknown) (no date) (unknown) [facility] (no value) [facility] Result panel 1578 (unknown) (no date) (unknown) [facility] (no value) [facility] Result panel 1579 (unknown) (no date) (unknown) [facility] (no value) [facility] Result panel 1580 (unknown) (no date) (unknown) [facility] (no value) [facility] Result panel 1581 (unknown) (no date) (unknown) [facility] (no value) [facility] Result panel 1582 (unknown) (no date) (unknown) Walk-In (no value) (units [facility] [facility] Result panel 1583 (unknown) (no date) (unknown) Walk-In (no value) [facility] Result panel 1584 (unknown) (no date) (unknown) [facility] (no value) [facility] Result panel 1585 (unknown) (no date) (unknown) [facility] (no value) [facility] Result panel 1586 (unknown) (no date) (unknown) [facility] (no value) [facility] Result panel 1587 (unknown) (no date) (unknown) [facility] (no value) [facility] Result panel 1588 (unknown) (no date) (unknown) [facility] (no value) [facility] Result panel 1589 (unknown) (no date) (unknown) [facility] (no value) [facility] Result panel 1590 (unknown) (no date) (unknown) [facility] (no value) [facility] Result panel 1591 (unknown) (no date) (unknown) [facility] (no value) [facility] Result panel 1592 (unknown) (no date) (unknown) [facility] (no value) [facility] Result panel 1593 (unknown) (no date) (unknown) [facility] (no value) [facility] Result panel 1594 (unknown) (no date) (unknown) [facility] (no value) [facility] Result panel 1595 (unknown) (no date) (unknown) [facility] (no value) [facility] Result panel 1596 (unknown) (no date) (unknown) [facility] (no value) [facility] Result panel 1597 (unknown) (no date) (unknown) [facility] (no value) [facility] Result panel 1598 (unknown) (no date) (unknown) Walk-[facility] (no value) [facility] Result panel 1599 (unknown) (no date) (unknown) [facility] (no value) [facility] Result panel 1600 (unknown) (no date) (unknown) [facility] (no value) [facility] Result panel 1601 (unknown) (no date) (unknown) [facility] (no value) [facility] Result panel 1602 (unknown) (no date) (unknown) Walk-[facility] (no value) [facility] Result panel 1603 (unknown) (no date) (unknown) Walk-[facility] (no value) [facility] Result panel 1604 (unknown) (no date) (unknown) [facility] (no value) [facility] Result panel 1605 (unknown) (no date) (unknown) [facility] (no value) [facility] Result panel 1606 (unknown) (no date) (unknown) [facility] (no value) [facility] Result panel 1607 (unknown) (no date) (unknown) [facility] (no value) [facility] Result panel 1608 (unknown) (no date) (unknown) [facility] (no value) [facility] Result panel 1609 (unknown) (no date) (unknown) [facility] (no value) [facility] Result panel 1610 (unknown) (no date) (unknown) [facility] (no value) [facility] Result panel 1611 (unknown) (no date) (unknown) Walk-In (no value) [facility] Result panel 1612 (unknown) (no date) (unknown) [facility] (no value) [facility] Result panel 1613 (unknown) (no date) (unknown) [facility] (no value) [facility] Result panel 1614 (unknown) (no date) (unknown) [facility] (no value) [facility] Result panel 1615 (unknown) (no date) (unknown) Walk-In (no value) [facility] Result panel 1616 (unknown) (no date) (unknown) [facility] (no value) [facility] Result panel 1617 (unknown) (no date) (unknown) [facility]-In (no value) [facility] Result panel 1618 (unknown) (no date) (unknown) [facility] (no value) [facility] Result panel 1619 (unknown) (no date) (unknown) [facility] (no value) [facility] Result panel 1620 (unknown) (no date) (unknown) [facility] (no value) [facility] Result panel 1621 (unknown) (no date) (unknown) [facility] (no value) [facility] Result panel 1622 (unknown) (no date) (unknown) [facility] (no value) [facility] Result panel 1623 (unknown) (no date) (unknown) [facility] (no value) [facility] Result panel 1624 (unknown) (no date) (unknown) [facility] (no value) [facility] Result panel 1625 (unknown) (no date) (unknown) [facility] (no value) [facility] Result panel 1626 (unknown) (no date) (unknown) [facility] (no value) [facility] Result panel 1627 (unknown) (no date) (unknown) [facility] (no value) [facility] Result panel 1628 (unknown) (no date) (unknown) [facility] (no value) [facility] Result panel 1629 (unknown) (no date) (unknown) [facility] (no value) [facility] Result panel 1630 (unknown) (no date) (unknown) [facility]-In (no value) [facility] Result panel 1631 (unknown) (no date) (unknown) Walk-In (no value) [facility] Result panel 1632 (unknown) (no date) (unknown) Walk-[facility] (no value) [facility] Result panel 1633 (unknown) (no date) (unknown) Walk-[facility] (no value) [facility] Result panel 1634 (unknown) (no date) (unknown) Walk-In (no value) [facility] Result panel 1635 (unknown) (no date) (unknown) [facility] (no value) [facility] Result panel 1636 (unknown) (no date) (unknown) [facility] (no value) [facility] Result panel 1637 (unknown) (no date) (unknown) Walk-In (no value) [facility] Result panel 1638 (unknown) (no date) (unknown) [facility] (no value) [facility] Result panel 1639 (unknown) (no date) (unknown) [facility] (no value) [facility] Result panel 1640 (unknown) (no date) (unknown) [facility] (no value) [facility] Result panel 1641 (unknown) (no date) (unknown) [facility] (no value) [facility] Result panel 1642 (unknown) (no date) (unknown) [facility] (no value) [facility] Result panel 1643 (unknown) (no date) (unknown) Walk-In (no value) [facility] Result panel 1644 (unknown) (no date) (unknown) [facility] (no value) [facility] Result panel 1645 (unknown) (no date) (unknown) [facility] (no value) [facility] Result panel 1646 (unknown) (no date) (unknown) Walk-In (no value) [facility] Result panel 1647 (unknown) (no date) (unknown) [facility]-In (no value) [facility] Result panel 1648 (unknown) (no date) (unknown) Walk-[facility] (no value) [facility] Result panel 1649 (unknown) (no date) (unknown) [facility]-In (no value) [facility] Result panel 1650 (unknown) (no date) (unknown) [facility] (no value) [facility] Result panel 1651 (unknown) (no date) (unknown) [facility] (no value) [facility] Result panel 1652 (unknown) (no date) (unknown) Walk-In (no value) [facility] Result panel 1653 (unknown) (no date) (unknown) [facility] (no value) [facility] Result panel 1654 (unknown) (no date) (unknown) [facility] (no value) [facility] Result panel 1655 (unknown) (no date) (unknown) Walk-In (no value) [facility] Result panel 1656 (unknown) (no date) (unknown) Walk-In (no value) [facility] Result panel 1657 (unknown) (no date) (unknown) Walk-In (no value) [facility] Result panel 1658 (unknown) (no date) (unknown) [facility]-In (no value) [facility] Result panel 1659 (unknown) (no date) (unknown) [facility]-In (no value) [facility] Result panel 1660 (unknown) (no date) (unknown) [facility] (no value) [facility] Result panel 1661 (unknown) (no date) (unknown) [facility]-In (no value) [facility] Result panel 1662 (unknown) (no date) (unknown) Walk-In (no value) [facility] Result panel 1663 (unknown) (no date) (unknown) [facility]-In (no value) [facility] Result panel 1664 (unknown) (no date) (unknown) [facility] (no value) [facility] Result panel 1665 (unknown) (no date) (unknown) Walk-In (no value) [facility] Result panel 1666 (unknown) (no date) (unknown) [facility] (no value) [facility] Result panel 1667 (unknown) (no date) (unknown) Walk-[facility] (no value) [facility] Result panel 1668 (unknown) (no date) (unknown) [facility] (no value) [facility] Result panel 1669 (unknown) (no date) (unknown) [facility] (no value) [facility] Result panel 1670 (unknown) (no date) (unknown) Walk-[facility] (no value) [facility] Result panel 1671 (unknown) (no date) (unknown) Walk-[facility] (no value) [facility] Result panel 1672 (unknown) (no date) (unknown) [facility]-In (no value) [facility] Result panel 1673 (unknown) (no date) (unknown) [facility] (no value) [facility] Result panel 1674 (unknown) (no date) (unknown) [facility] (no value) [facility] Result panel 1675 (unknown) (no date) (unknown) [facility]-In (no value) [facility] Result panel 1676 (unknown) (no date) (unknown) [facility] (no value) [facility] Result panel 1677 (unknown) (no date) (unknown) [facility]-In (no value) [facility] Result panel 1678 (unknown) (no date) (unknown) Walk-In (no value) [facility] Result panel 1679 (unknown) (no date) (unknown) [facility] (no value) [facility] Result panel 1680 (unknown) (no date) (unknown) [facility] (no value) [facility] Result panel 1681 (unknown) (no date) (unknown) [facility] (no value) [facility] Result panel 1682 (unknown) (no date) (unknown) [facility] (no value) [facility] Result panel 1683 (unknown) (no date) (unknown) [facility]-In (no value) [facility] Result panel 1684 (unknown) (no date) (unknown) [facility] (no value) [facility] Result panel 1685 (unknown) (no date) (unknown) [facility] (no value) [facility] Result panel 1686 (unknown) (no date) (unknown) [facility] (no value) [facility] Result panel 1687 (unknown) (no date) (unknown) [facility] (no value) [facility] Result panel 1688 (unknown) (no date) (unknown) [facility] (no value) [facility] Result panel 1689 (unknown) (no date) (unknown) Walk-[facility] (no value) [facility] Result panel 1690 (unknown) (no date) (unknown) [facility]-In (no value) [facility] Result panel 1691 (unknown) (no date) (unknown) [facility]-In (no value) [facility] Result panel 1692 (unknown) (no date) (unknown) [facility] (no value) [facility] Result panel 1693 (unknown) (no date) (unknown) [facility]-In (no value) [facility] Result panel 1694 (unknown) (no date) (unknown) [facility] (no value) [facility] Result panel 1695 (unknown) (no date) (unknown) [facility] (no value) [facility] Result panel 1696 (unknown) (no date) (unknown) [facility]-In (no value) ([facility] Result panel 1697 (unknown) (no date) (unknown) [facility]-In (no value) [facility] Result panel 1698 (unknown) (no date) (unknown) [facility]-In (no value) [facility] Result panel 1699 (unknown) (no date) (unknown) [facility] (no value) [facility] Result panel 1700 (unknown) (no date) (unknown) [facility] (no value) [facility] Result panel 1701 (unknown) (no date) (unknown) [facility] (no value) [facility] Result panel 1702 (unknown) (no date) (unknown) Walk-In (no value) [facility] Result panel 1703 (unknown) (no date) (unknown) [facility] (no value) [facility] Result panel 1704 (unknown) (no date) (unknown) Walk-[facility] (no value) [facility] Result panel 1705 (unknown) (no date) (unknown) [facility] (no value) [facility] Result panel 1706 (unknown) (no date) (unknown) [facility] (no value) [facility] Result panel 1707 (unknown) (no date) (unknown) [facility] (no value) [facility] Result panel 1708 (unknown) (no date) (unknown) Walk-[facility] (no value) [facility] Result panel 1709 (unknown) (no date) (unknown) [facility]-In (no value) [facility] Result panel 1710 (unknown) (no date) (unknown) [facility] (no value) [facility] Result panel 1711 (unknown) (no date) (unknown) [facility] (no value) [facility] Result panel 1712 (unknown) (no date) (unknown) [facility]-In (no value) [facility] Result panel 1713 (unknown) (no date) (unknown) [facility] (no value) [facility] Result panel 1714 (unknown) (no date) (unknown) [facility] (no value) [facility] Result panel 1715 (unknown) (no date) (unknown) [facility]-In (no value) [facility] Result panel 1716 (unknown) (no date) (unknown) [facility] (no value) [facility] Result panel 1717 (unknown) (no date) (unknown) [facility] (no value) [facility] Result panel 1718 (unknown) (no date) (unknown) [facility]-In (no value) [facility] Result panel 1719 (unknown) (no date) (unknown) [facility] (no value) [facility] Result panel 1720 (unknown) (no date) (unknown) [facility] (no value) [facility] Result panel 1721 (unknown) (no date) (unknown) [facility] (no value) [facility] Result panel 1722 (unknown) (no date) (unknown) [facility] (no value) [facility] Result panel 1723 (unknown) (no date) (unknown) [facility] (no value) [facility] Result panel 1724 (unknown) (no date) (unknown) [facility] (no value) [facility] Result panel 1725 (unknown) (no date) (unknown) [facility] (no value) [facility] Result panel 1726 (unknown) (no date) (unknown) [facility] (no value) [facility] Result panel 1727 (unknown) (no date) (unknown) [facility] (no value) [facility] Result panel 1728 (unknown) (no date) (unknown) [facility] (no value) [facility] Result panel 1729 (unknown) (no date) (unknown) [facility] (no value) [facility] Result panel 1730 (unknown) (no date) (unknown) [facility] (no value) [facility] Result panel 1731 (unknown) (no date) (unknown) [facility] (no value) [facility] Result panel 1732 (unknown) (no date) (unknown) [facility] (no value) [facility] Result panel 1733 (unknown) (no date) (unknown) [facility] (no value) [facility] Result panel 1734 (unknown) (no date) (unknown) [facility] (no value) [facility] Result panel 1735 (unknown) (no date) (unknown) [facility] (no value) [facility] Result panel 1736 (unknown) (no date) (unknown) [facility]-In (no value) [facility] Result panel 1737 (unknown) (no date) (unknown) [facility] (no value) [facility] Result panel 1738 (unknown) (no date) (unknown) [facility] (no value) [facility] Result panel 1739 (unknown) (no date) (unknown) [facility]-In (no value) [facility] Result panel 1740 (unknown) (no date) (unknown) [facility] (no value) ([facility] Result panel 1741 (unknown) (no date) (unknown) [facility] (no value) [facility] Result panel 1742 (unknown) (no date) (unknown) [facility]-In (no value) [facility] Result panel 1743 (unknown) (no date) (unknown) [facility]-In (no value) ([facility] Result panel 1744 (unknown) (no date) (unknown) [facility]-In (no value) [facility] Result panel 1745 (unknown) (no date) (unknown) [facility]-In (no value) [facility] Result panel 1746 (unknown) (no date) (unknown) [facility] (no value) [facility] Result panel 1747 (unknown) (no date) (unknown) [facility]-In (no value) [facility] Result panel 1748 (unknown) (no date) (unknown) [facility]-In (no value) [facility] Result panel 1749 (unknown) (no date) (unknown) Walk-In (no value) [facility] Result panel 1750 (unknown) (no date) (unknown) Walk-In (no value) [facility] Result panel 1751 (unknown) (no date) (unknown) Walk-In (no value) [facility] Result panel 1752 (unknown) (no date) (unknown) Walk-In (no value) [facility] Result panel 1753 (unknown) (no date) (unknown) Walk-In (no value) [facility] Result panel 1754 (unknown) (no date) (unknown) Walk-In (no value) [facility] Result panel 1755 (unknown) (no date) (unknown) Walk-In (no value) [facility] Result panel 1756 (unknown) (no date) (unknown) Walk-In (no value) [facility] Result panel 1757 (unknown) (no date) (unknown) Walk-In (no value) [facility] Result panel 1758 (unknown) (no date) (unknown) Walk-In (no value) [facility] Result panel 1759 (unknown) (no date) (unknown) Walk-In (no value) [facility] Result panel 1760 (unknown) (no date) (unknown) Walk-In (no value) [facility] Result panel 1761 (unknown) (no date) (unknown) Walk-In (no value) [facility] Result panel 1762 (unknown) (no date) (unknown) Walk-In (no value) [facility] Result panel 1763 (unknown) (no date) (unknown) Walk-In (no value) [facility] Result panel 1764 (unknown) (no date) (unknown) Walk-In (no value) [facility] Result panel 1765 (unknown) (no date) (unknown) Walk-In (no value) [facility] Result panel 1766 (unknown) (no date) (unknown) Walk-In (no value) [facility] Result panel 1767 (unknown) (no date) (unknown) Walk-In (no value) [facility] Result panel 1768 (unknown) (no date) (unknown) Walk-In (no value) [facility] Result panel 1769 (unknown) (no date) (unknown) Walk-In (no value) [facility] Result panel 1770 (unknown) (no date) (unknown) Walk-In (no value) [facility] Result panel 1771 (unknown) (no date) (unknown) Walk-In (no value) [facility] Result panel 1772 (unknown) (no date) (unknown) Walk-In (no value) [facility] Result panel 1773 (unknown) (no date) (unknown) [facility]-In (no value) [facility] Result panel 1774 (unknown) (no date) (unknown) [facility]-In (no value) [facility] Result panel 1775 (unknown) (no date) (unknown) [facility]-In (no value) [facility] Result panel 1776 (unknown) (no date) (unknown) Walk-In (no value) [facility] Result panel 1777 (unknown) (no date) (unknown) Walk-In (no value) [facility] Result panel 1778 (unknown) (no date) (unknown) Walk-In (no value) [facility] Result panel 1779 (unknown) (no date) (unknown) Walk-In (no value) [facility] Result panel 1780 (unknown) (no date) (unknown) Walk-In (no value) [facility] Result panel 1781 (unknown) (no date) (unknown) Walk-In (no value) [facility] Result panel 1782 (unknown) (no date) (unknown) Walk-In (no value) [facility] Result panel 1783 (unknown) (no date) (unknown) Walk-In (no value) [facility] Result panel 1784 (unknown) (no date) (unknown) Walk-In (no value) [facility] Result panel 1785 (unknown) (no date) (unknown) Walk-In (no value) [facility] Result panel 1786 (unknown) (no date) (unknown) Walk-In (no value) [facility] Result panel 1787 (unknown) (no date) (unknown) Walk-In (no value) [facility] Result panel 1788 (unknown) (no date) (unknown) Walk-In (no value) [facility] Result panel 1789 (unknown) (no date) (unknown) Walk-In (no value) [facility] Result panel 1790 (unknown) (no date) (unknown) Walk-In (no value) [facility] Result panel 1791 (unknown) (no date) (unknown) Walk-In (no value) [facility] Result panel 1792 (unknown) (no date) (unknown) Walk-In (no value) [facility] Result panel 1793 (unknown) (no date) (unknown) Walk-In (no value) [facility] Result panel 1794 (unknown) (no date) (unknown) Walk-In (no value) [facility] Result panel 1795 (unknown) (no date) (unknown) Walk-In (no value) [facility] Result panel 1796 (unknown) (no date) (unknown) Walk-In (no value) [facility] Result panel 1797 (unknown) (no date) (unknown) Walk-In (no value) [facility] Result panel 1798 (unknown) (no date) (unknown) Walk-In (no value) [facility] Result panel 1799 (unknown) (no date) (unknown) Walk-In (no value) [facility] Result panel 1800 (unknown) (no date) (unknown) Walk-In (no value) [facility] Result panel 1801 (unknown) (no date) (unknown) Walk-In (no value) [facility] Result panel 1802 (unknown) (no date) (unknown) Walk-In (no value) [facility] Result panel 1803 (unknown) (no date) (unknown) Walk-In (no value) [facility] Result panel 1804 (unknown) (no date) (unknown) Walk-In (no value) [facility] Result panel 1805 (unknown) (no date) (unknown) Walk-In (no value) [facility] Result panel 1806 (unknown) (no date) (unknown) Walk-In (no value) [facility] Result panel 1807 (unknown) (no date) (unknown) Walk-In (no value) [facility] Result panel 1808 (unknown) (no date) (unknown) [facility]-In (no value) [facility] Result panel 1809 (unknown) (no date) (unknown) [facility]-In (no value) [facility] Result panel 1810 (unknown) (no date) (unknown) Walk-In (no value) [facility] Result panel 1811 (unknown) (no date) (unknown) Walk-In (no value) [facility] Result panel 1812 (unknown) (no date) (unknown) Walk-In (no value) [facility] Result panel 1813 (unknown) (no date) (unknown) Walk-In (no value) [facility] Result panel 1814 (unknown) (no date) (unknown) Walk-In (no value) [facility] Result panel 1815 (unknown) (no date) (unknown) Walk-In (no value) [facility] Result panel 1816 (unknown) (no date) (unknown) Walk-In (no value) [facility] Result panel 1817 (unknown) (no date) (unknown) Walk-In (no value) [facility] Result panel 1818 (unknown) (no date) (unknown) Walk-In (no value) [facility] Result panel 1819 (unknown) (no date) (unknown) Walk-In (no value) [facility] Result panel 1820 (unknown) (no date) (unknown) Walk-In (no value) [facility] Result panel 1821 (unknown) (no date) (unknown) Walk-In (no value) [facility] Result panel 1822 (unknown) (no date) (unknown) Walk-In (no value) [facility] Result panel 1823 (unknown) (no date) (unknown) Walk-In (no value) [facility] Result panel 1824 (unknown) (no date) (unknown) Walk-In (no value) [facility] Result panel 1825 (unknown) (no date) (unknown) Walk-In (no value) [facility] Result panel 1826 (unknown) (no date) (unknown) Walk-In (no value) [facility] Result panel 1827 (unknown) (no date) (unknown) Walk-In (no value) [facility] Result panel 1828 (unknown) (no date) (unknown) [facility]-In (no value) [facility] Result panel 1829 (unknown) (no date) (unknown) Walk-In (no value) [facility] Result panel 1830 (unknown) (no date) (unknown) Walk-In (no value) [facility] Result panel 1831 (unknown) (no date) (unknown) Walk-In (no value) [facility] Result panel 1832 (unknown) (no date) (unknown) Walk-In (no value) [facility] Result panel 1833 (unknown) (no date) (unknown) [facility] (no value) [facility] Result panel 1834 (unknown) (no date) (unknown) [facility] (no value) [facility] Result panel 1835 (unknown) (no date) (unknown) Walk-[facility] (no value) [facility] Result panel 1836 (unknown) (no date) (unknown) Walk-[facility] (no value) [facility] Result panel 1837 (unknown) (no date) (unknown) [facility]-In (no value) [facility] Result panel 1838 (unknown) (no date) (unknown) [facility] (no value) [facility] Result panel 1839 (unknown) (no date) (unknown) [facility]-In (no value) [facility] Result panel 1840 (unknown) (no date) (unknown) [facility] (no value) [facility] Result panel 1841 (unknown) (no date) (unknown) [facility] (no value) [facility] Result panel 1842 (unknown) (no date) (unknown) [facility]-In (no value) [facility] Result panel 1843 (unknown) (no date) (unknown) [facility] (no value) [facility] Result panel 1844 (unknown) (no date) (unknown) Walk-In (no value) [facility] Result panel 1845 (unknown) (no date) (unknown) [facility] (no value) [facility] Result panel 1846 (unknown) (no date) (unknown) [facility] (no value) [facility] Result panel 1847 (unknown) (no date) (unknown) [facility] (no value) [facility] Result panel 1848 (unknown) (no date) (unknown) [facility]-In (no value) [facility] Result panel 1849 (unknown) (no date) (unknown) [facility]-In (no value) [facility] Result panel 1850 (unknown) (no date) (unknown) [facility] (no value) [facility] Result panel 1851 (unknown) (no date) (unknown) [facility]-In (no value) [facility] Result panel 1852 (unknown) (no date) (unknown) [facility] (no value) [facility] Result panel 1853 (unknown) (no date) (unknown) [facility] (no value) [facility] Result panel 1854 (unknown) (no date) (unknown) [facility] (no value) [facility] Result panel 1855 (unknown) (no date) (unknown) [facility] (no value) [facility] Result panel 1856 (unknown) (no date) (unknown) [facility] (no value) [facility] Result panel 1857 (unknown) (no date) (unknown) [facility] (no value) [facility] Result panel 1858 (unknown) (no date) (unknown) [facility] (no value) [facility] Result panel 1859 (unknown) (no date) (unknown) [facility] (no value) [facility] Result panel 1860 (unknown) (no date) (unknown) Walk-[facility] (no value) [facility] Result panel 1861 (unknown) (no date) (unknown) [facility] (no value) [facility] Result panel 1862 (unknown) (no date) (unknown) Walk-[facility] (no value) [facility] Result panel 1863 (unknown) (no date) (unknown) Walk-[facility] (no value) [facility] Result panel 1864 (unknown) (no date) (unknown) Walk-[facility] (no value) [facility] Result panel 1865 (unknown) (no date) (unknown) Walk-In (no value) [facility] Result panel 1866 (unknown) (no date) (unknown) [facility] (no value) [facility] Result panel 1867 (unknown) (no date) (unknown) [facility] (no value) [facility] Result panel 1868 (unknown) (no date) (unknown) [facility] (no value) [facility] Result panel 1869 (unknown) (no date) (unknown) Walk-In (no value) [facility] Result panel 1870 (unknown) (no date) (unknown) Walk-In (no value) [facility] Result panel 1871 (unknown) (no date) (unknown) Walk-In (no value) [facility] Result panel 1872 (unknown) (no date) (unknown) Walk-In (no value) [facility] Result panel 1873 (unknown) (no date) (unknown) Walk-In (no value) [facility] Result panel 1874 (unknown) (no date) (unknown) [facility] (no value) [facility] Result panel 1875 (unknown) (no date) (unknown) Walk-In (no value) [facility] Result panel 1876 (unknown) (no date) (unknown) Walk-In (no value) [facility] Result panel 1877 (unknown) (no date) (unknown) Walk-In (no value) [facility] Result panel 1878 (unknown) (no date) (unknown) Walk-In (no value) [facility] Result panel 1879 (unknown) (no date) (unknown) Walk-In (no value) [facility] Result panel 1880 (unknown) (no date) (unknown) Walk-In (no value) [facility] Result panel 1881 (unknown) (no date) (unknown) [facility]-In (no value) [facility] Result panel 1882 (unknown) (no date) (unknown) [facility]-In (no value) [facility] Result panel 1883 (unknown) (no date) (unknown) [facility]-In (no value) [facility] Result panel 1884 (unknown) (no date) (unknown) [facility]-In (no value) [facility] Result panel 1885 (unknown) (no date) (unknown) [facility]-In (no value) [facility] Result panel 1886 (unknown) (no date) (unknown) [facility]-In (no value) [facility] Result panel 1887 (unknown) (no date) (unknown) [facility] (no value) [facility] Result panel 1888 (unknown) (no date) (unknown) [facility]-In (no value) [facility] Result panel 1889 (unknown) (no date) (unknown) [facility] (no value) [facility] Result panel 1890 (unknown) (no date) (unknown) [facility]-In (no value) [facility] Result panel 1891 (unknown) (no date) (unknown) [facility]-In (no value) [facility] Result panel 1892 (unknown) (no date) (unknown) [facility]-In (no value) [facility] Result panel 1893 (unknown) (no date) (unknown) [facility] (no value) [facility] Result panel 1894 (unknown) (no date) (unknown) [facility] (no value) [facility] Result panel 1895 (unknown) (no date) (unknown) [facility]-In (no value) [facility] Result panel 1896 (unknown) (no date) (unknown) [facility]-In (no value) [facility] Result panel 1897 (unknown) (no date) (unknown) [facility] (no value) [facility] Result panel 1898 (unknown) (no date) (unknown) Walk-In (no value) [facility] Result panel 1899 (unknown) (no date) (unknown) [facility]-In (no value) [facility] Result panel 1900 (unknown) (no date) (unknown) [facility]-In (no value) [facility] Result panel 1901 (unknown) (no date) (unknown) [facility]-In (no value) [facility] Result panel 1902 (unknown) (no date) (unknown) [facility]-In (no value) [facility] Result panel 1903 (unknown) (no date) (unknown) [facility]-In (no value) [facility] Result panel 1904 (unknown) (no date) (unknown) Walk-In (no value) [facility] Result panel 1905 (unknown) (no date) (unknown) [facility]-In (no value) [facility] Result panel 1906 (unknown) (no date) (unknown) [facility]-In (no value) [facility] Result panel 1907 (unknown) (no date) (unknown) Walk-In (no value) [facility] Result panel 1908 (unknown) (no date) (unknown) [facility]-In (no value) [facility] Result panel 1909 (unknown) (no date) (unknown) [facility]-In (no value) [facility] Result panel 1910 (unknown) (no date) (unknown) Walk-In (no value) [...] [facility] Result panel 1914 (unknown) (no date) (unknown) [facility] (no value) [facility] Result panel 1915 (unknown) (no date) (unknown) Walk-In (no value) [facility] Result panel 1916 (unknown) (no date) (unknown) Walk-In (no value) [facility] Result panel 1917 (unknown) (no date) (unknown) Walk-In (no value) [facility] Result panel 191 (unknown) (no date) (unknown) Walk-In (no value) [facility] Result panel 191 (unknown) (no date) (unknown) Walk-In (no value) ([facility] Result panel 1920 (unknown) (no date) (unknown) Walk-In (no value) [facility] Result panel 192 (unknown) (no date) (unknown) Walk-In (no value) (units [facility] Result panel 1922 (unknown) (no date) (unknown) Walk-In (no value) (units [facility] Result panel 1923 (unknown) (no date) (unknown) [facility]-In (no value) [facility] Result panel 192 (unknown) (no date) (unknown) [facility]-In (no value) [facility] Result panel 1925 (unknown) (no date) (unknown) Walk-In (no value) [facility]units [facility] Result panel 192 (unknown) (no date) (unknown) [facility]-In (no value) (units [facility] Result panel 192 (unknown) (no date) (unknown) [facility]-In (no value) [facility]units [facility] Result panel 1928 (unknown) (no date) (unknown) Walk-In (no value) [...] [facility] Result panel 1935 (unknown) (no date) (unknown) [facility] (no value) [facility] Result panel 1936 (unknown) (no date) (unknown) Walk-In (no value) [...] [facility] Result panel 1940 (unknown) (no date) (unknown) Walk-In (no value) [...] [facility] Result panel 1945 (unknown) (no date) (unknown) [facility] (no value) [facility] Result panel 194 (unknown) (no date) (unknown) Walk-In (no value) [facility] Result panel 1947 (unknown) (no date) (unknown) [facility]-In (no value) [facility] Result panel 194 (unknown) (no date) (unknown) [facility]-In (no value) (units [facility] Result panel 1948 (unknown) (no date) (unknown) [facility]-In (no value) (units [facility] Result panel 1949 (unknown) (no date) (unknown) [facility]-In (no value) (units [facility] Result panel 1950 (unknown) (no date) (unknown) [facility]-In (no value) (units [facility] Result panel 1951 (unknown) (no date) (unknown) [facility]-In (no value) [facility] Result panel 1952 (unknown) (no date) (unknown) [facility] (no value) [facility] Result panel 1953 (unknown) (no date) (unknown) [facility] (no value) [facility]units [facility] Result panel 1954 (unknown) (no date) (unknown) [facility] (no value) [facility] Result panel 1955 (unknown) (no date) (unknown) [facility]-In (no value) [facility] Result panel 1956 (unknown) (no date) (unknown) [facility] (no value) [facility] Result panel 1957 (unknown) (no date) (unknown) [facility] (no value) [facility] Result panel 1958 (unknown) (no date) (unknown) [facility]-In (no value) [facility] Result panel 1960 (unknown) (no date) (unknown) [facility] (no value) [facility] Result panel 1960 (unknown) (no date) (unknown) [facility] (no value) [facility] Result panel 1961 (unknown) (no date) (unknown) [facility] (no value) [facility] Result panel 1962 (unknown) (no date) (unknown) [facility] (no value) [facility] Result panel 1963 (unknown) (no date) (unknown) [facility] (no value) [facility] Result panel 1965 (unknown) (no date) (unknown) [facility]-In (no value) [facility] Result panel 1966 (unknown) (no date) (unknown) [facility]-In (no value) [facility] Result panel 1967 (unknown) (no date) (unknown) [facility] (no value) [facility] Result panel 1968 (unknown) (no date) (unknown) [facility]-In (no value) ([facility] Result panel 1969 (unknown) (no date) (unknown) [facility]-In (no value) [facility] Result panel 1970 (unknown) (no date) (unknown) [facility]-In (no value) [facility] Result panel 1971 (unknown) (no date) (unknown) [facility]-In (no value) [facility] Result panel 1972 (unknown) (no date) (unknown) [facility]-In (no value) [facility] Result panel 1973 (unknown) (no date) (unknown) [facility] (no value) [facility] Result panel 1973 (unknown) (no date) (unknown) [facility]-In (no value) [facility] Result panel 1974 (unknown) (no date) (unknown) [facility] (no value) [facility] Result panel 1975 (unknown) (no date) (unknown) [facility] (no value) [facility] Result panel 1976 (unknown) (no date) (unknown) [facility] (no value) [facility] Result panel 1977 (unknown) (no date) (unknown) [facility]-In (no value) [facility] Result panel 1978 (unknown) (no date) (unknown) Walk-In (no value) [facility] Result panel 1979 (unknown) (no date) (unknown) [facility]-In (no value) [facility] Result panel 1980 (unknown) (no date) (unknown) [facility] (no value) ([facility] Result panel 1981 (unknown) (no date) (unknown) [facility]-In (no value) [facility] Result panel 1982 (unknown) (no date) (unknown) [facility]-In (no value) ([facility] Result panel 1983 (unknown) (no date) (unknown) Walk-In (no value) [facility] Result panel 1984 (unknown) (no date) (unknown) Walk-In (no value) ([facility] Result panel 1985 (unknown) (no date) (unknown) [facility] (no value) [facility] Result panel 1986 (unknown) (no date) (unknown) [facility] (no value) [facility] Result panel 1987 (unknown) (no date) (unknown) [facility] (no value) [facility] Result panel 1988 (unknown) (no date) (unknown) [facility] (no value) [facility] Result panel 1989 (unknown) (no date) (unknown) [facility] (no value) [facility] Result panel 1990 (unknown) (no date) (unknown) [facility] (no value) [facility] Result panel 1991 (unknown) (no date) (unknown) [facility] (no value) ([facility] Result panel 1992 (unknown) (no date) (unknown) [facility] (no value) [facility] Result panel 1993 (unknown) (no date) (unknown) [facility] (no value) [facility] Result panel 1994 (unknown) (no date) (unknown) [facility] (no value) ([facility] Result panel 1995 (unknown) (no date) (unknown) [facility] (no value) [facility] Result panel 1996 (unknown) (no date) (unknown) [facility] (no value) ([facility] Result panel 1997 (unknown) (no date) (unknown) [facility] (no value) ([facility] Result panel 1998 (unknown) (no date) (unknown) [facility] (no value) [facility] Result panel 1999 (unknown) (no date) (unknown) [facility] (no value) [facility]units [facility] Result panel 2000 (unknown) (no date) (unknown) [facility] (no value) [facility] Result panel 2001 (unknown) (no date) (unknown) [facility] (no value) [facility] Result panel 2002 (unknown) (no date) (unknown) [facility] (no value) [facility]units [facility] Result panel 2003 (unknown) (no date) (unknown) [facility] (no value) [facility] Result panel 2004 (unknown) (no date) (unknown) [facility] (no value) [facility]units [facility] Result panel 2005 (unknown) (no date) (unknown) [facility] (no value) [facility] Result panel 2006 (unknown) (no date) (unknown) [facility] (no value) [facility] Result panel 2008 (unknown) (no date) (unknown) [facility] (no value) ([facility] Result panel 2008 (unknown) (no date) (unknown) [facility] (no value) (units [facility] Result panel 2009 (unknown) (no date) (unknown) [facility] (no value) (units [facility] Result panel 2011 (unknown) (no date) (unknown) [facility] (no value) ([facility] Result panel 2012 (unknown) (no date) (unknown) [facility] (no value) ([facility] Result panel 2012 (unknown) (no date) (unknown) [facility] (no value) [facility] Result panel 2013 (unknown) (no date) (unknown) [facility] (no value) (units [facility] Result panel 2015 (unknown) (no date) (unknown) [facility] (no value) [facility] Result panel 2016 (unknown) (no date) (unknown) [facility] (no value) [facility] Result panel 2017 (unknown) (no date) (unknown) [facility] (no value) [facility] Result panel 2018 (unknown) (no date) (unknown) [facility] (no value) [facility] Result panel 2018 (unknown) (no date) (unknown) [facility] (no value) [facility] Result panel 2019 (unknown) (no date) (unknown) [facility] (no value) [facility] Result panel 2020 (unknown) (no date) (unknown) [facility] (no value) [facility] Result panel 2021 (unknown) (no date) (unknown) [facility] (no value) [facility] Result panel 2022 (unknown) (no date) (unknown) [facility] (no value) [facility] Result panel 2023 (unknown) (no date) (unknown) [facility] (no value) [facility] Result panel 2024 (unknown) (no date) (unknown) [facility] (no value) [facility] Result panel 2025 (unknown) (no date) (unknown) [facility] (no value) [facility] Result panel 2026 (unknown) (no date) (unknown) [facility] (no value) [facility] Result panel 2027 (unknown) (no date) (unknown) [facility] (no value) [facility] Result panel 2028 (unknown) (no date) (unknown) [facility] (no value) [facility] Result panel 2029 (unknown) (no date) (unknown) [facility] (no value) [facility] Result panel 2030 (unknown) (no date) (unknown) [facility] (no value) [facility] Result panel 2031 (unknown) (no date) (unknown) [facility] (no value) [facility] Result panel 2032 (unknown) (no date) (unknown) [facility] (no value) [facility] Result panel 2033 (unknown) (no date) (unknown) [facility] (no value) [facility] Result panel 2034 (unknown) (no date) (unknown) [facility] (no value) [facility] Result panel 2035 (unknown) (no date) (unknown) [facility] (no value) [facility] Result panel 2036 (unknown) (no date) (unknown) [facility] (no value) [facility] Result panel 2037 (unknown) (no date) (unknown) [facility] (no value) ([facility] Result panel 2038 (unknown) (no date) (unknown) [facility] (no value) [facility] Result panel 2039 (unknown) (no date) (unknown) [facility] (no value) [facility] Result panel 2040 (unknown) (no date) (unknown) [facility] (no value) [facility] Result panel 2041 (unknown) (no date) (unknown) [facility] (no value) [facility] Result panel 2042 (unknown) (no date) (unknown) [facility] (no value) [facility] Result panel 2043 (unknown) (no date) (unknown) [facility] (no value) [facility] Result panel 2044 (unknown) (no date) (unknown) [facility] (no value) [facility] Result panel 2045 (unknown) (no date) (unknown) [facility] (no value) [facility] Result panel 2046 (unknown) (no date) (unknown) [facility] (no value) [facility] Result panel 2047 (unknown) (no date) (unknown) [facility] (no value) [facility] Result panel 2048 (unknown) (no date) (unknown) [facility] (no value) [facility] Result panel 2049 (unknown) (no date) (unknown) [facility] (no value) [facility] Result panel 2050 (unknown) (no date) (unknown) [facility] (no value) [facility] Result panel 2051 (unknown) (no date) (unknown) [facility]-In (no value) [facility] Result panel 2052 (unknown) (no date) (unknown) [facility]-In (no value) [facility] Result panel 2053 (unknown) (no date) (unknown) [facility] (no value) [facility] Result panel 2054 (unknown) (no date) (unknown) [facility] (no value) [facility] Result panel 2055 (unknown) (no date) (unknown) [facility] (no value) [facility] Result panel 2056 (unknown) (no date) (unknown) [facility] (no value) ([facility] Result panel 2057 (unknown) (no date) (unknown) [facility] (no value) [facility] Result panel 2058 (unknown) (no date) (unknown) [facility] (no value) [facility] Result panel 2059 (unknown) (no date) (unknown) [facility] (no value) [facility] Result panel 2060 (unknown) (no date) (unknown) [facility] (no value) [facility] Result panel 2061 (unknown) (no date) (unknown) [facility] (no value) [facility] Result panel 2062 (unknown) (no date) (unknown) [facility] (no value) [facility] Result panel 2063 (unknown) (no date) (unknown) [facility] (no value) [facility] Result panel 2064 (unknown) (no date) (unknown) [facility] (no value) [facility] Result panel 2065 (unknown) (no date) (unknown) [facility] (no value) ([facility] Result panel 2066 (unknown) (no date) (unknown) [facility] (no value) ([facility] Result panel 2067 (unknown) (no date) (unknown) [facility] (no value) [facility] Result panel 2068 (unknown) (no date) (unknown) [facility] (no value) ([facility] Result panel 2069 (unknown) (no date) (unknown) [facility] (no value) [facility] Result panel 2070 (unknown) (no date) (unknown) [facility] (no value) [facility] Result panel 2071 (unknown) (no date) (unknown) [facility] (no value) [facility] Result panel 2072 (unknown) (no date) (unknown) [facility] (no value) [facility] Result panel 2073 (unknown) (no date) (unknown) [facility] (no value) [facility] Result panel 2074 (unknown) (no date) (unknown) [facility] (no value) [facility] Result panel 6 (unknown) (no date) (unknown) [facility] (no value) [facility] Result panel 2076 (unknown) (no date) (unknown) [facility] (no value) [facility] Result panel 2077 (unknown) (no date) (unknown) [facility] (no value) [facility] Result panel 2078 (unknown) (no date) (unknown) [facility] (no value) [facility] Result panel 2079 (unknown) (no date) (unknown) [facility] (no value) [facility] Result panel 2080 (unknown) (no date) (unknown) [facility] (no value) [facility] Result panel 2081 (unknown) (no date) (unknown) [facility] (no value) [facility] Result panel 2082 (unknown) (no date) (unknown) [facility] (no value) [facility] Result panel 2083 (unknown) (no date) (unknown) [facility] (no value) [facility] Result panel 2084 (unknown) (no date) (unknown) [facility]-In (no value) [facility] Result panel 2085 (unknown) (no date) (unknown) [facility] (no value) [facility] Result panel 2086 (unknown) (no date) (unknown) [facility] (no value) [facility] Result panel 2087 (unknown) (no date) (unknown) [facility] (no value) ([facility] Result panel 2088 (unknown) (no date) (unknown) [facility] (no value) ([facility] Result panel 2089 (unknown) (no date) (unknown) [facility] (no value) [facility] Result panel 2090 (unknown) (no date) (unknown) [facility] (no value) ([facility] Result panel 2091 (unknown) (no date) (unknown) [facility] (no value) [facility] Result panel 2092 (unknown) (no date) (unknown) [facility]-In (no value) ([facility] Result panel 2093 (unknown) (no date) (unknown) [facility]-In (no value) ([facility] Result panel 2094 (unknown) (no date) (unknown) [facility]-In (no value) ([facility] Result panel 2095 (unknown) (no date) (unknown) [facility]-In (no value) ([facility] Result panel 2096 (unknown) (no date) (unknown) [facility]-In (no value) ([facility] Result panel 2097 (unknown) (no date) (unknown) [facility]-In (no value) ([facility] Result panel 2098 (unknown) (no date) (unknown) Walk-In (no value) ([facility] Result panel 2099 (unknown) (no date) (unknown) Walk-In (no value) ([facility] Result panel 2100 (unknown) (no date) (unknown) Walk-In (no value) [facility] Result panel 2101 (unknown) (no date) (unknown) Walk-In (no value) ([facility] Result panel 2103 (unknown) (no date) (unknown) [facility] (no value[facility] Result panel 2104 (unknown) (no date) (unknown) [facility] (no value) [facility] Result panel 2105 (unknown) (no date) (unknown) [facility] (no value) [facility] Result panel 2106 (unknown) (no date) (unknown) [facility] (no value) [facility] Result panel 2107 (unknown) (no date) (unknown) [facility] (no value) [facility] Result panel 2108 (unknown) (no date) (unknown) [facility] (no value) [facility] Result panel 210 (unknown) (no date) (unknown) [facility] (no value) [facility] Result panel 2110 (unknown) (no date) (unknown) [facility] (no value) [facility] Result panel 2111 (unknown) (no date) (unknown) [facility] (no value) [facility] Result panel 2112 (unknown) (no date) (unknown) [facility] (no value) [facility] Result panel 2113 (unknown) (no date) (unknown) [facility] (no value) [facility] Result panel 2114 (unknown) (no date) (unknown) [facility] (no value) [facility] Result panel 2115 (unknown) (no date) (unknown) [facility] (no value) [facility] Result panel 2116 (unknown) (no date) (unknown) [facility] (no value) [facility] Result panel 2117 (unknown) (no date) (unknown) [facility] (no value) [facility] Result panel 2118 (unknown) (no date) (unknown) [facility] (no value) [facility] Result panel 211 (unknown) (no date) (unknown) [facility] (no value) [facility] Result panel 2120 (unknown) (no date) (unknown) [facility] (no value) [facility] Result panel 2121 (unknown) (no date) (unknown) [facility] (no value) [facility] Result panel 2122 (unknown) (no date) (unknown) [facility] (no value) [facility] Result panel 2123 (unknown) (no date) (unknown) [facility] (no value) [facility] Result panel 2124 (unknown) (no date) (unknown) [facility] (no value) [facility] Result panel 2125 (unknown) (no date) (unknown) [facility] (no value) [facility] Result panel 2126 (unknown) (no date) (unknown) [facility] (no value) [facility] Result panel 2127 (unknown) (no date) (unknown) [facility] (no value) [facility] Result panel 2128 (unknown) (no date) (unknown) [facility] (no value) [facility] Result panel 2129 (unknown) (no date) (unknown) [facility] (no value) [facility] Result panel 2130 (unknown) (no date) (unknown) [facility] (no value) [facility] Result panel 2131 (unknown) (no date) (unknown) [facility] (no value) [facility] Result panel 2132 (unknown) (no date) (unknown) [facility] (no value) [facility] Result panel 2133 (unknown) (no date) (unknown) [facility] (no value) [facility] Result panel 2134 (unknown) (no date) (unknown) [facility] (no value) [facility] Result panel 2135 (unknown) (no date) (unknown) [facility] (no value) [facility] Result panel 2136 (unknown) (no date) (unknown) [facility] (no value) [facility] Result panel 2137 (unknown) (no date) (unknown) [facility] (no value) [facility] Result panel 2138 (unknown) (no date) (unknown) [facility] (no value) [facility] Result panel 2139 (unknown) (no date) (unknown) [facility] (no value) [facility] Result panel 2140 (unknown) (no date) (unknown) [facility] (no value) [facility] Result panel 2141 (unknown) (no date) (unknown) [facility] (no value) [facility] Result panel 2142 (unknown) (no date) (unknown) [facility] (no value) [facility] Result panel 2143 (unknown) (no date) (unknown) [facility] (no value) [facility] Result panel 2144 (unknown) (no date) (unknown) [facility] (no value) [facility] Result panel 2145 (unknown) (no date) (unknown) [facility] (no value) [facility] Result panel 2146 (unknown) (no date) (unknown) [facility] (no value) [facility] Result panel 2147 (unknown) (no date) (unknown) [facility] (no value) [facility] Result panel 2148 (unknown) (no date) (unknown) [facility] (no value) [facility] Result panel 2149 (unknown) (no date) (unknown) [facility] (no value) [facility] Result panel 2150 (unknown) (no date) (unknown) [facility] (no value) [facility] Result panel 2151 (unknown) (no date) (unknown) [facility] (no value) [facility] Result panel 2152 (unknown) (no date) (unknown) [facility] (no value) [facility] Result panel 2153 (unknown) (no date) (unknown) [facility] (no value) [facility] Result panel 2154 (unknown) (no date) (unknown) [facility] (no value) [facility] Result panel 2155 (unknown) (no date) (unknown) [facility] (no value) [facility] Result panel 2156 (unknown) (no date) (unknown) [facility] (no value) [facility] Result panel 2157 (unknown) (no date) (unknown) [facility] (no value) [facility] Result panel 2158 (unknown) (no date) (unknown) [facility] (no value) [facility] Result panel 2159 (unknown) (no date) (unknown) [facility] (no value) [facility] Result panel 2160 (unknown) (no date) (unknown) [facility] (no value) [facility] Result panel 2161 (unknown) (no date) (unknown) [facility] (no value) [facility] Result panel 2162 (unknown) (no date) (unknown) [facility] (no value) [facility] Result panel 2163 (unknown) (no date) (unknown) [facility] (no value) [facility] Result panel 2164 (unknown) (no date) (unknown) [facility] (no value) [facility] Result panel 2165 (unknown) (no date) (unknown) [facility] (no value) [facility] Result panel 2166 (unknown) (no date) (unknown) [facility] (no value) [facility] Result panel 2167 (unknown) (no date) (unknown) [facility] (no value) [facility] Result panel 2168 (unknown) (no date) (unknown) [facility] (no value) [facility] Result panel 2169 (unknown) (no date) (unknown) [facility] (no value) [facility] Result panel 2170 (unknown) (no date) (unknown) [facility] (no value) [facility] Result panel 2171 (unknown) (no date) (unknown) [facility] (no value) [facility] Result panel 2172 (unknown) (no date) (unknown) [facility] (no value) [facility] Result panel 2173 (unknown) (no date) (unknown) [facility] (no value) [facility] Result panel 2174 (unknown) (no date) (unknown) [facility] (no value) [facility] Result panel 2175 (unknown) (no date) (unknown) [facility] (no value) [facility] Result panel 2176 (unknown) (no date) (unknown) [facility] (no value) [facility] Result panel 2177 (unknown) (no date) (unknown) [facility] (no value) [facility] Result panel 2178 (unknown) (no date) (unknown) [facility] (no value) [facility] Result panel 2179 (unknown) (no date) (unknown) [facility] (no value) [facility] Result panel 2180 (unknown) (no date) (unknown) [facility] (no value) [facility] Result panel 2181 (unknown) (no date) (unknown) [facility] (no value) [facility] Result panel 2182 (unknown) (no date) (unknown) [facility] (no value) [facility] Result panel 2183 (unknown) (no date) (unknown) [facility] (no value) [facility] Result panel 2184 (unknown) (no date) (unknown) [facility] (no value) [facility] Result panel 2185 (unknown) (no date) (unknown) [facility] (no value) [facility] Result panel 2186 (unknown) (no date) (unknown) [facility] (no value) [facility] Result panel 2187 (unknown) (no date) (unknown) [facility] (no value) [facility] Result panel 2188 (unknown) (no date) (unknown) [facility] (no value) [facility] Result panel 2189 (unknown) (no date) (unknown) [facility] (no value) [facility] Result panel 2190 (unknown) (no date) (unknown) [facility] (no value) [facility] Result panel 2191 (unknown) (no date) (unknown) [facility] (no value) [facility] Result panel 2192 (unknown) (no date) (unknown) [facility] (no value) [facility] Result panel 2193 (unknown) (no date) (unknown) [facility] (no value) [facility] Result panel 2194 (unknown) (no date) (unknown) [facility] (no value) [facility] Result panel 2195 (unknown) (no date) (unknown) [facility] (no value) [facility] Result panel 2196 (unknown) (no date) (unknown) [facility] (no value) [facility] Result panel 2197 (unknown) (no date) (unknown) [facility] (no value) [facility] Result panel 2198 (unknown) (no date) (unknown) [facility] (no value) [facility] Result panel 2199 (unknown) (no date) (unknown) [facility] (no value) [facility] Result panel 2200 (unknown) (no date) (unknown) [facility] (no value) [facility] Result panel 2201 (unknown) (no date) (unknown) [facility] (no value) [facility] Result panel 2202 (unknown) (no date) (unknown) [facility] (no value) [facility] Result panel 2203 (unknown) (no date) (unknown) [facility] (no value) [facility] Result panel 2204 (unknown) (no date) (unknown) [facility] (no value) [facility] Result panel 2205 (unknown) (no date) (unknown) [facility] (no value) [facility] Result panel 2206 (unknown) (no date) (unknown) [facility] (no value) [facility] Result panel 2207 (unknown) (no date) (unknown) [facility] (no value) [facility] Result panel 2208 (unknown) (no date) (unknown) [facility] (no value) [facility] Result panel 2209 (unknown) (no date) (unknown) [facility] (no value) [facility] Result panel 2210 (unknown) (no date) (unknown) [facility] (no value) [facility] Result panel 2211 (unknown) (no date) (unknown) [facility] (no value) [facility] Result panel 2212 (unknown) (no date) (unknown) [facility] (no value) [facility] Result panel 2213 (unknown) (no date) (unknown) [facility] (no value) [facility] Result panel 2214 (unknown) (no date) (unknown) [facility] (no value) [facility] Result panel 2215 (unknown) (no date) (unknown) [facility] (no value) [facility] Result panel 2216 (unknown) (no date) (unknown) [facility] (no value) [facility] Result panel 2217 (unknown) (no date) (unknown) [facility] (no value) [facility] Result panel 2218 (unknown) (no date) (unknown) [facility] (no value) [facility] Result panel 2219 (unknown) (no date) (unknown) [facility] (no value) [facility] Result panel 2220 (unknown) (no date) (unknown) [facility] (no value) [facility] Result panel 2221 (unknown) (no date) (unknown) [facility] (no value) [facility] Result panel 2222 (unknown) (no date) (unknown) [facility] (no value) [facility] Result panel 2223 (unknown) (no date) (unknown) [facility] (no value) [facility] Result panel 2224 (unknown) (no date) (unknown) [facility] (no value) [facility] Result panel 2225 (unknown) (no date) (unknown) [facility] (no value) [facility] Result panel 2226 (unknown) (no date) (unknown) [facility] (no value) [facility] Result panel 2227 (unknown) (no date) (unknown) [facility] (no value) [facility] Result panel 2228 (unknown) (no date) (unknown) [facility] (no value) [facility] Result panel 2229 (unknown) (no date) (unknown) [facility] (no value) [facility] Result panel 2230 (unknown) (no date) (unknown) [facility] (no value) [facility] Result panel 2231 (unknown) (no date) (unknown) [facility] (no value) [facility] Result panel 2232 (unknown) (no date) (unknown) [facility] (no value) [facility] Result panel 2233 (unknown) (no date) (unknown) [facility] (no value) [facility] Result panel 2234 (unknown) (no date) (unknown) [facility] (no value) [facility] Result panel 2235 (unknown) (no date) (unknown) [facility] (no value) [facility] Result panel 2236 (unknown) (no date) (unknown) [facility] (no value) [facility] Result panel 2237 (unknown) (no date) (unknown) [facility] (no value) [facility] Result panel 2238 (unknown) (no date) (unknown) [facility] (no value) [facility] Result panel 2239 (unknown) (no date) (unknown) [facility] (no value) [facility] Result panel 2240 (unknown) (no date) (unknown) [facility] (no value) [facility] Result panel 2241 (unknown) (no date) (unknown) [facility] (no value) [facility] Result panel 2242 (unknown) (no date) (unknown) [facility] (no value) [facility] Result panel 2243 (unknown) (no date) (unknown) [facility] (no value) [facility] Result panel 2244 (unknown) (no date) (unknown) [facility] (no value) [facility] Result panel 2245 (unknown) (no date) (unknown) [facility] (no value) [facility] Result panel 2246 (unknown) (no date) (unknown) [facility] (no value) [facility] Result panel 2247 (unknown) (no date) (unknown) [facility] (no value) [facility] Result panel 2248 (unknown) (no date) (unknown) [facility] (no value) [facility] Result panel 2249 (unknown) (no date) (unknown) [facility] (no value) [facility] Result panel 2250 (unknown) (no date) (unknown) [facility] (no value) [facility] Result panel 2251 (unknown) (no date) (unknown) [facility] (no value) [facility] Result panel 2252 (unknown) (no date) (unknown) [facility] (no value) [facility] Result panel 2253 (unknown) (no date) (unknown) [facility] (no value) [facility] Result panel 2254 (unknown) (no date) (unknown) [facility] (no value) [facility] Result panel 2255 (unknown) (no date) (unknown) [facility] (no value) [facility] Result panel 2256 (unknown) (no date) (unknown) [facility] (no value) [facility] Result panel 2257 (unknown) (no date) (unknown) [facility] (no value) [facility] Result panel 2258 (unknown) (no date) (unknown) [facility] (no value) [facility] Result panel 2259 (unknown) (no date) (unknown) [facility] (no value) [facility] Result panel 2260 (unknown) (no date) (unknown) [facility] (no value) [facility] Result panel 2261 (unknown) (no date) (unknown) [facility] (no value) [facility] Result panel 2262 (unknown) (no date) (unknown) [facility] (no value) [facility] Result panel 2263 (unknown) (no date) (unknown) [facility] (no value) [facility] Result panel 2264 (unknown) (no date) (unknown) [facility] (no value) [facility] Result panel 2265 (unknown) (no date) (unknown) [facility] (no value) [facility] Result panel 2266 (unknown) (no date) (unknown) [facility] (no value) [facility] Result panel 2267 (unknown) (no date) (unknown) [facility] (no value) [facility] Result panel 2268 (unknown) (no date) (unknown) [facility] (no value) [facility] Result panel 2269 (unknown) (no date) (unknown) [facility] (no value) [facility] Result panel 2270 (unknown) (no date) (unknown) [facility] (no value) [facility] [facility] Result panel 2271 (unknown) (no date) (unknown) [facility] (no value[facility] Result panel 2272 (unknown) (no date) (unknown) [facility] (no value) [facility] Result panel 2273 (unknown) (no date) (unknown) [facility] (no value) [facility] Result panel 2274 (unknown) (no date) (unknown) [facility] (no value) [facility] Result panel 2275 (unknown) (no date) (unknown) [facility] (no value) [facility] Result panel 2276 (unknown) (no date) (unknown) [facility] (no value) [facility] Result panel 2277 (unknown) (no date) (unknown) [facility] (no value) [facility] Result panel 2278 (unknown) (no date) (unknown) [facility] (no value) [facility] Result panel 2279 (unknown) (no date) (unknown) [facility] (no value) [facility] Result panel 2280 (unknown) (no date) (unknown) [facility] (no value) [facility] Result panel 2281 (unknown) (no date) (unknown) [facility] (no value) [facility] Result panel 2282 (unknown) (no date) (unknown) [facility] (no value) [facility] Result panel 2283 (unknown) (no date) (unknown) [facility] (no value) [facility] Result panel 2284 (unknown) (no date) (unknown) [facility] (no value) [facility] Result panel 2285 (unknown) (no date) (unknown) [facility] (no value) [facility] Result panel 2286 (unknown) (no date) (unknown) [facility] (no value) [facility] Result panel 2287 (unknown) (no date) (unknown) [facility] (no value) [facility] Result panel 2288 (unknown) (no date) (unknown) [facility] (no value) [facility] Result panel 2289 (unknown) (no date) (unknown) [facility] (no value) [facility] Result panel 2290 (unknown) (no date) (unknown) [facility] (no value) [facility] Result panel 2291 (unknown) (no date) (unknown) [facility] (no value) [facility] Result panel 2292 (unknown) (no date) (unknown) [facility] (no value) [facility] Result panel 2293 (unknown) (no date) (unknown) [facility] (no value) [facility] Result panel 2294 (unknown) (no date) (unknown) [facility] (no value) [facility] Result panel 2295 (unknown) (no date) (unknown) [facility] (no value) [facility] Result panel 2296 (unknown) (no date) (unknown) [facility] (no value) [facility] Result panel 2297 (unknown) (no date) (unknown) [facility] (no value) [facility] Result panel 2298 (unknown) (no date) (unknown) [facility] (no value) [facility] Result panel 2299 (unknown) (no date) (unknown) [facility] (no value) [facility] Result panel 2300 (unknown) (no date) (unknown) [facility] (no value) [facility] Result panel 2301 (unknown) (no date) (unknown) [facility] (no value) [facility] Result panel 2302 (unknown) (no date) (unknown) [facility] (no value) [facility] Result panel 2303 (unknown) (no date) (unknown) [facility] (no value) [facility] Result panel 2304 (unknown) (no date) (unknown) [facility] (no value) [facility] Result panel 2305 (unknown) (no date) (unknown) [facility] (no value) [facility] Result panel 2306 (unknown) (no date) (unknown) [facility] (no value) [facility] Result panel 2307 (unknown) (no date) (unknown) [facility] (no value) [facility] Result panel 2308 (unknown) (no date) (unknown) [facility] (no value) [facility] Result panel 2309 (unknown) (no date) (unknown) [facility] (no value) [facility] Result panel 2310 (unknown) (no date) (unknown) [facility] (no value) [facility] Result panel 2311 (unknown) (no date) (unknown) [facility] (no value) [facility] Result panel 2312 (unknown) (no date) (unknown) [facility] (no value) [facility] Result panel 2313 (unknown) (no date) (unknown) [facility] (no value) [facility] Result panel 2314 (unknown) (no date) (unknown) [facility] (no value) [facility] Result panel 2315 (unknown) (no date) (unknown) [facility] (no value) [facility] Result panel 2316 (unknown) (no date) (unknown) [facility] (no value) [facility] Result panel 2317 (unknown) (no date) (unknown) [facility] (no value) [facility] Result panel 2318 (unknown) (no date) (unknown) [facility] (no value) [facility] Result panel 2319 (unknown) (no date) (unknown) [facility] (no value) [facility] Result panel 2320 (unknown) (no date) (unknown) [facility] (no value) [facility] Result panel 2321 (unknown) (no date) (unknown) [facility] (no value) [facility] Result panel 2322 (unknown) (no date) (unknown) [facility] (no value) [facility] Result panel 2323 (unknown) (no date) (unknown) [facility] (no value) [facility] Result panel 2324 (unknown) (no date) (unknown) [facility] (no value) [facility] Result panel 2325 (unknown) (no date) (unknown) [facility] (no value) [facility] Result panel 2326 (unknown) (no date) (unknown) [facility] (no value) [facility] Result panel 2327 (unknown) (no date) (unknown) [facility] (no value) [facility] Result panel 2328 (unknown) (no date) (unknown) [facility] (no value) [facility] Result panel 2329 (unknown) (no date) (unknown) [facility] (no value) [facility] Result panel 2330 (unknown) (no date) (unknown) [facility] (no value) [facility] Result panel 2331 (unknown) (no date) (unknown) [facility] (no value) [facility] Result panel 2332 (unknown) (no date) (unknown) [facility] (no value) [facility] Result panel 2333 (unknown) (no date) (unknown) [facility] (no value) [facility] Result panel 2334 (unknown) (no date) (unknown) [facility] (no value) [facility] Result panel 2335 (unknown) (no date) (unknown) [facility] (no value) [facility] Result panel 2336 (unknown) (no date) (unknown) [facility] (no value) [facility] Result panel 2337 (unknown) (no date) (unknown) [facility] (no value) [facility] Result panel 2338 (unknown) (no date) (unknown) [facility] (no value) [facility] Result panel 2339 (unknown) (no date) (unknown) [facility] (no value) [facility] Result panel 2340 (unknown) (no date) (unknown) [facility] (no value) [facility] Result panel 2341 (unknown) (no date) (unknown) [facility] (no value) [facility] Result panel 2342 (unknown) (no date) (unknown) [facility] (no value) [facility] Result panel 2343 (unknown) (no date) (unknown) [facility] (no value) [facility] Result panel 2344 (unknown) (no date) (unknown) [facility] (no value) [facility] Result panel 2345 (unknown) (no date) (unknown) [facility] (no value) [facility] Result panel 2346 (unknown) (no date) (unknown) [facility] (no value) [facility] Result panel 2347 (unknown) (no date) (unknown) [facility] (no value) [facility] Result panel 2348 (unknown) (no date) (unknown) [facility] (no value) [facility] Result panel 2349 (unknown) (no date) (unknown) [facility] (no value) [facility] Result panel 2350 (unknown) (no date) (unknown) [facility] (no value) [facility] Result panel 2351 (unknown) (no date) (unknown) [facility] (no value) [facility] Result panel 2352 (unknown) (no date) (unknown) [facility] (no value) [facility] Result panel 2353 (unknown) (no date) (unknown) [facility] (no value) [facility] Result panel 2354 (unknown) (no date) (unknown) [facility] (no value) [facility] Result panel 2355 (unknown) (no date) (unknown) [facility] (no value) [facility] Result panel 2356 (unknown) (no date) (unknown) [facility] (no value) [facility] Result panel 2357 (unknown) (no date) (unknown) [facility] (no value) [facility] Result panel 2358 (unknown) (no date) (unknown) [facility] (no value) [facility] Result panel 2359 (unknown) (no date) (unknown) [facility] (no value) [facility] Result panel 2360 (unknown) (no date) (unknown) [facility] (no value) [facility] Result panel 2361 (unknown) (no date) (unknown) [facility] (no value) [facility] Result panel 2362 (unknown) (no date) (unknown) [facility] (no value) [facility] Result panel 2363 (unknown) (no date) (unknown) [facility] (no value) [facility] Result panel 2364 (unknown) (no date) (unknown) [facility] (no value) [facility] Result panel 2365 (unknown) (no date) (unknown) [facility] (no value) [facility] Result panel 2366 (unknown) (no date) (unknown) [facility] (no value) [facility] Result panel 2367 (unknown) (no date) (unknown) [facility] (no value) [facility] Result panel 2368 (unknown) (no date) (unknown) [facility] (no value) [facility] Result panel 2369 (unknown) (no date) (unknown) [facility] (no value) [facility] Result panel 2370 (unknown) (no date) (unknown) [facility] (no value) [facility] Result panel 2371 (unknown) (no date) (unknown) [facility] (no value) [facility] Result panel 2372 (unknown) (no date) (unknown) [facility] (no value) [facility] Result panel 2373 (unknown) (no date) (unknown) [facility] (no value) [facility] Result panel 2374 (unknown) (no date) (unknown) [facility] (no value) [facility] Result panel 2375 (unknown) (no date) (unknown) [facility] (no value) [facility] Result panel 2376 (unknown) (no date) (unknown) [facility] (no value) [facility] Result panel 2377 (unknown) (no date) (unknown) [facility] (no value) [facility] Result panel 2378 (unknown) (no date) (unknown) [facility] (no value) [facility] Result panel 2379 (unknown) (no date) (unknown) [facility] (no value) [facility] Result panel 2380 (unknown) (no date) (unknown) [facility] (no value) [facility] Result panel 2381 (unknown) (no date) (unknown) [facility] (no value) [facility] Result panel 2382 (unknown) (no date) (unknown) [facility] (no value) [facility] Result panel 2383 (unknown) (no date) (unknown) [facility] (no value) [facility] Result panel 2384 (unknown) (no date) (unknown) [facility] (no value) [facility] Result panel 2385 (unknown) (no date) (unknown) [facility] (no value) [facility] Result panel 2386 (unknown) (no date) (unknown) [facility] (no value) [facility] Result panel 2387 (unknown) (no date) (unknown) [facility] (no value) [facility] Result panel 2388 (unknown) (no date) (unknown) [facility] (no value) [facility] Result panel 2389 (unknown) (no date) (unknown) [facility] (no value) [facility] Result panel 2390 (unknown) (no date) (unknown) [facility] (no value) [facility] Result panel 2391 (unknown) (no date) (unknown) [facility] (no value) [facility] Result panel 2392 (unknown) (no date) (unknown) [facility] (no value) [facility] Result panel 2393 (unknown) (no date) (unknown) [facility] (no value) [facility] Result panel 2394 (unknown) (no date) (unknown) [facility] (no value) [facility] Result panel 2395 (unknown) (no date) (unknown) [facility] (no value) [facility] Result panel 2396 (unknown) (no date) (unknown) [facility] (no value) [facility] Result panel 2397 (unknown) (no date) (unknown) [facility] (no value) [facility] Result panel 2398 (unknown) (no date) (unknown) [facility] (no value) [facility] Result panel 2399 (unknown) (no date) (unknown) [facility] (no value) [facility] Result panel 2400 (unknown) (no date) (unknown) [facility] (no value) [facility] Result panel 2401 (unknown) (no date) (unknown) [facility] (no value) [facility] Result panel 2402 (unknown) (no date) (unknown) [facility] (no value) [facility] Result panel 2403 (unknown) (no date) (unknown) [facility] (no value) [facility] Result panel 2404 (unknown) (no date) (unknown) [facility] (no value) [facility] Result panel 2405 (unknown) (no date) (unknown) [facility] (no value) [facility] Result panel 2406 (unknown) (no date) (unknown) [facility] (no value) [facility] Result panel 2407 (unknown) (no date) (unknown) [facility] (no value) [facility] Result panel 2408 (unknown) (no date) (unknown) [facility] (no value) [facility] Result panel 2409 (unknown) (no date) (unknown) [facility] (no value) [facility] Result panel 2410 (unknown) (no date) (unknown) [facility] (no value) [facility] Result panel 2411 (unknown) (no date) (unknown) [facility] (no value) [facility] Result panel 2412 (unknown) (no date) (unknown) [facility] (no value) [facility] Result panel 2413 (unknown) (no date) (unknown) [facility] (no value) [facility] Result panel 2414 (unknown) (no date) (unknown) [facility] (no value) [facility] Result panel 2415 (unknown) (no date) (unknown) [facility] (no value) [facility] Result panel 2416 (unknown) (no date) (unknown) [facility] (no value) [facility] Result panel 2417 (unknown) (no date) (unknown) [facility] (no value) [facility] Result panel 2418 (unknown) (no date) (unknown) [facility] (no value) [facility] Result panel 2419 (unknown) (no date) (unknown) [facility] (no value) [facility] Result panel 2420 (unknown) (no date) (unknown) [facility] (no value) [facility] Result panel 2421 (unknown) (no date) (unknown) [facility] (no value) [facility] Result panel 2422 (unknown) (no date) (unknown) [facility] (no value) [facility] Result panel 2423 (unknown) (no date) (unknown) [facility] (no value) [facility] Result panel 2424 (unknown) (no date) (unknown) [facility] (no value) [facility] Result panel 2425 (unknown) (no date) (unknown) [facility] (no value) [facility] Result panel 2426 (unknown) (no date) (unknown) [facility] (no value) [facility] Result panel 2427 (unknown) (no date) (unknown) [facility] (no value) [facility] Result panel 2428 (unknown) (no date) (unknown) [facility] (no value) [facility] Result panel 2429 (unknown) (no date) (unknown) [facility] (no value) [facility] Result panel 2430 (unknown) (no date) (unknown) [facility] (no value) [facility] Result panel 2431 (unknown) (no date) (unknown) [facility] (no value) [facility] Result panel 2432 (unknown) (no date) (unknown) [facility] (no value) [facility] Result panel 2433 (unknown) (no date) (unknown) [facility] (no value) [facility] Result panel 2434 (unknown) (no date) (unknown) [facility] (no value) [facility] Result panel 2435 (unknown) (no date) (unknown) [facility] (no value) [facility] Result panel 2436 (unknown) (no date) (unknown) [facility] (no value) [facility] Result panel 2437 (unknown) (no date) (unknown) [facility] (no value) [facility] Result panel 2438 (unknown) (no date) (unknown) [facility] (no value) [facility] [facility] Result panel 2439 (unknown) (no date) (unknown) [facility] value[facility] Result panel 2440 (unknown) (no date) (unknown) [facility]no value) [facility] Result panel 2441 (unknown) (no date) (unknown) [facility] (no value) [facility] Result panel 2442 (unknown) (no date) (unknown) [facility] (no value) [facility] Result panel 2443 (unknown) (no date) (unknown) [facility] (no value) [facility] Result panel 2444 (unknown) (no date) (unknown) [facility] (no value) [facility] Result panel 2445 (unknown) (no date) (unknown) [facility] (no value) [facility] Result panel 2446 (unknown) (no date) (unknown) [facility] (no value) [facility] Result panel 2447 (unknown) (no date) (unknown) [facility] (no value) [facility] Result panel 2448 (unknown) (no date) (unknown) [facility] (no value) [facility] Result panel 2449 (unknown) (no date) (unknown) [facility] (no value) [facility] Result panel 2450 (unknown) (no date) (unknown) [facility]no value) [facility] Result panel 2451 (unknown) (no date) (unknown) [facility] (no value) [facility] Result panel 2452 (unknown) (no date) (unknown) [facility] (no value) [facility] Result panel 2453 (unknown) (no date) (unknown) [facility] (no value) [facility] Result panel 2454 (unknown) (no date) (unknown) [facility] (no value) [facility] Result panel 2455 (unknown) (no date) (unknown) [facility] (no value) [facility] Result panel 2456 (unknown) (no date) (unknown) [facility] (no value) [facility] Result panel 2457 (unknown) (no date) (unknown) [facility] (no value) [facility] Result panel 2458 (unknown) (no date) (unknown) [facility] (no value) [facility] Result panel 2459 (unknown) (no date) (unknown) [facility] (no value) [facility] Result panel 2460 (unknown) (no date) (unknown) [facility] (no value) [facility] Result panel 2461 (unknown) (no date) (unknown) [facility] (no value) [facility] Result panel 2462 (unknown) (no date) (unknown) [facility] (no value) [facility] Result panel 2463 (unknown) (no date) (unknown) [facility] (no value) [facility] Result panel 2464 (unknown) (no date) (unknown) [facility] (no value) [facility] Result panel 2465 (unknown) (no date) (unknown) [facility] (no value) [facility] Result panel 2466 (unknown) (no date) (unknown) [facility] (no value) [facility] Result panel 2467 (unknown) (no date) (unknown) [facility] (no value) [facility] Result panel 2468 (unknown) (no date) (unknown) [facility] (no value) [facility] Result panel 2469 (unknown) (no date) (unknown) [facility] (no value) [facility] Result panel 2470 (unknown) (no date) (unknown) [facility] (no value) [facility] Result panel 2471 (unknown) (no date) (unknown) [facility] (no value) [facility] Result panel 2472 (unknown) (no date) (unknown) [facility] (no value) [facility] Result panel 2473 (unknown) (no date) (unknown) [facility] (no value) [facility] Result panel 2474 (unknown) (no date) (unknown) [facility] (no value) [facility] Result panel 2475 (unknown) (no date) (unknown) [facility] (no value) [facility] Result panel 2476 (unknown) (no date) (unknown) [facility] (no value) [facility] Result panel 2477 (unknown) (no date) (unknown) [facility] (no value) [facility] Result panel 2478 (unknown) (no date) (unknown) [facility] (no value) [facility] Result panel 2479 (unknown) (no date) (unknown) [facility] (no value) [facility] Result panel 2480 (unknown) (no date) (unknown) [facility] (no value) [facility] Result panel 2481 (unknown) (no date) (unknown) [facility] (no value) [facility] Result panel 2482 (unknown) (no date) (unknown) [facility] (no value) [facility] Result panel 2483 (unknown) (no date) (unknown) [facility] (no value) [facility] Result panel 2484 (unknown) (no date) (unknown) [facility] (no value) [facility] Result panel 2485 (unknown) (no date) (unknown) [facility] (no value) [facility] Result panel 2486 (unknown) (no date) (unknown) [facility] (no value) [facility] Result panel 2487 (unknown) (no date) (unknown) [facility] (no value) [facility] Result panel 2488 (unknown) (no date) (unknown) [facility] (no value) [facility] Result panel 2489 (unknown) (no date) (unknown) [facility] (no value) [facility] Result panel 2490 (unknown) (no date) (unknown) [facility] (no value) [facility] Result panel 2491 (unknown) (no date) (unknown) [facility] (no value) [facility] Result panel 2492 (unknown) (no date) (unknown) [facility] (no value) [facility] Result panel 2493 (unknown) (no date) (unknown) [facility] (no value) [facility] Result panel 2494 (unknown) (no date) (unknown) [facility] (no value) [facility] Result panel 2495 (unknown) (no date) (unknown) [facility] (no value) [facility] Result panel 2496 (unknown) (no date) (unknown) [facility] (no value) [facility] Result panel 2497 (unknown) (no date) (unknown) [facility] (no value) [facility] Result panel 2498 (unknown) (no date) (unknown) [facility] (no value) [facility] Result panel 2499 (unknown) (no date) (unknown) [facility] (no value) [facility] Result panel 2500 (unknown) (no date) (unknown) [facility] (no value) [facility] Result panel 2501 (unknown) (no date) (unknown) [facility] (no value) [facility] Result panel 2502 (unknown) (no date) (unknown) [facility] (no value) [facility] Result panel 2503 (unknown) (no date) (unknown) [facility] (no value) [facility] Result panel 2504 (unknown) (no date) (unknown) [facility] (no value) [facility] Result panel 2505 (unknown) (no date) (unknown) [facility] (no value) [facility] Result panel 2506 (unknown) (no date) (unknown) [facility] (no value) [facility] Result panel 2507 (unknown) (no date) (unknown) [facility] (no value) [facility] Result panel 2508 (unknown) (no date) (unknown) [facility] (no value) [facility] Result panel 2509 (unknown) (no date) (unknown) [facility] (no value) [facility] Result panel 2510 (unknown) (no date) (unknown) [facility] (no value) [facility] Result panel 2511 (unknown) (no date) (unknown) [facility] (no value) [facility] Result panel 2512 (unknown) (no date) (unknown) [facility] (no value) [facility] Result panel 2513 (unknown) (no date) (unknown) [facility] (no value) [facility] Result panel 2514 (unknown) (no date) (unknown) [facility] (no value) [facility] Result panel 2515 (unknown) (no date) (unknown) [facility] (no value) [facility] Result panel 2516 (unknown) (no date) (unknown) [facility] (no value) [facility] Result panel 2517 (unknown) (no date) (unknown) [facility] (no value) [facility] Result panel 2518 (unknown) (no date) (unknown) [facility] (no value) [facility] Result panel 2519 (unknown) (no date) (unknown) [facility] (no value) [facility] Result panel 2520 (unknown) (no date) (unknown) [facility] (no value) [facility] Result panel 2521 (unknown) (no date) (unknown) [facility] (no value) [facility] Result panel 2522 (unknown) (no date) (unknown) [facility] (no value) [facility] Result panel 2523 (unknown) (no date) (unknown) [facility] (no value) [facility] Result panel 2524 (unknown) (no date) (unknown) [facility] (no value) [facility] Result panel 2525 (unknown) (no date) (unknown) [facility] (no value) [facility] Result panel 2526 (unknown) (no date) (unknown) [facility] (no value) [facility] Result panel 2527 (unknown) (no date) (unknown) [facility] (no value) [facility] Result panel 2528 (unknown) (no date) (unknown) [facility] (no value) [facility] Result panel 2529 (unknown) (no date) (unknown) [facility] (no value) [facility] Result panel 2530 (unknown) (no date) (unknown) [facility] (no value) [facility] Result panel 2531 (unknown) (no date) (unknown) [facility] (no value) [facility] Result panel 2532 (unknown) (no date) (unknown) [facility] (no value) [facility] Result panel 2533 (unknown) (no date) (unknown) [facility] (no value) [facility] Result panel 2534 (unknown) (no date) (unknown) [facility] (no value) [facility] Result panel 2535 (unknown) (no date) (unknown) [facility] (no value) [facility] Result panel 2536 (unknown) (no date) (unknown) [facility] (no value) [facility] Result panel 2537 (unknown) (no date) (unknown) [facility] (no value) [facility] Result panel 2538 (unknown) (no date) (unknown) [facility] (no value) [facility] Result panel 2539 (unknown) (no date) (unknown) [facility] (no value) [facility] Result panel 2540 (unknown) (no date) (unknown) [facility] (no value) [facility] Result panel 2541 (unknown) (no date) (unknown) [facility] (no value) [facility] Result panel 2542 (unknown) (no date) (unknown) [facility] (no value) [facility] Result panel 2543 (unknown) (no date) (unknown) [facility] (no value) [facility] Result panel 2544 (unknown) (no date) (unknown) [facility] (no value) [facility] Result panel 2545 (unknown) (no date) (unknown) [facility] (no value) [facility] Result panel 2546 (unknown) (no date) (unknown) [facility] (no value) [facility] Result panel 2547 (unknown) (no date) (unknown) [facility] (no value) [facility] Result panel 2548 (unknown) (no date) (unknown) [facility] (no value) [facility] Result panel 2549 (unknown) (no date) (unknown) [facility] (no value) [facility] Result panel 2550 (unknown) (no date) (unknown) [facility] (no value) [facility] Result panel 2551 (unknown) (no date) (unknown) [facility] (no value) [facility] Result panel 2552 (unknown) (no date) (unknown) [facility] (no value) [facility] Result panel 2553 (unknown) (no date) (unknown) [facility] (no value) [facility] Result panel 2554 (unknown) (no date) (unknown) [facility] (no value) [facility] Result panel 2555 (unknown) (no date) (unknown) [facility] (no value) [facility] Result panel 2556 (unknown) (no date) (unknown) [facility] (no value) [facility] Result panel 2557 (unknown) (no date) (unknown) [facility] (no value) [facility] Result panel 2558 (unknown) (no date) (unknown) [facility] (no value) [facility] Result panel 2559 (unknown) (no date) (unknown) [facility] (no value) [facility] Result panel 2560 (unknown) (no date) (unknown) [facility] (no value) [facility] Result panel 2561 (unknown) (no date) (unknown) [facility] (no value) [facility] Result panel 2562 (unknown) (no date) (unknown) [facility] (no value) [facility] Result panel 2563 (unknown) (no date) (unknown) [facility] (no value) [facility] Result panel 2564 (unknown) (no date) (unknown) [facility] (no value) [facility] Result panel 2565 (unknown) (no date) (unknown) [facility] (no value) [facility] Result panel 2566 (unknown) (no date) (unknown) [facility] (no value) [facility] Result panel 2567 (unknown) (no date) (unknown) [facility] (no value) [facility] Result panel 2568 (unknown) (no date) (unknown) [facility] (no value) [facility] Result panel 2569 (unknown) (no date) (unknown) [facility] (no value) [facility] Result panel 2570 (unknown) (no date) (unknown) [facility] (no value) [facility] Result panel 2571 (unknown) (no date) (unknown) [facility] (no value) [facility] Result panel 2572 (unknown) (no date) (unknown) [facility] (no value) [facility] Result panel 2573 (unknown) (no date) (unknown) [facility] (no value) [facility] Result panel 2574 (unknown) (no date) (unknown) [facility] (no value) [facility] Result panel 2575 (unknown) (no date) (unknown) [facility] (no value) [facility] Result panel 2576 (unknown) (no date) (unknown) [facility] (no value) [facility] Result panel 2577 (unknown) (no date) (unknown) [facility] (no value) [facility] Result panel 2578 (unknown) (no date) (unknown) [facility] (no value) [facility] Result panel 2579 (unknown) (no date) (unknown) [facility] (no value) [facility] Result panel 2580 (unknown) (no date) (unknown) [facility] (no value) [facility] Result panel 2581 (unknown) (no date) (unknown) [facility] (no value) [facility] Result panel 2582 (unknown) (no date) (unknown) [facility] (no value) [facility] Result panel 2583 (unknown) (no date) (unknown) [facility] (no value) [facility] Result panel 2584 (unknown) (no date) (unknown) [facility] (no value) [facility] Result panel 2585 (unknown) (no date) (unknown) [facility] (no value) [facility] Result panel 2586 (unknown) (no date) (unknown) [facility] (no value) [facility] Result panel 2587 (unknown) (no date) (unknown) [facility] (no value) [facility] Result panel 2588 (unknown) (no date) (unknown) [facility] (no value) [facility] Result panel 2589 (unknown) (no date) (unknown) [facility] (no value) [facility] Result panel 2590 (unknown) (no date) (unknown) [facility] (no value) [facility] Result panel 2591 (unknown) (no date) (unknown) [facility] (no value) [facility] Result panel 2592 (unknown) (no date) (unknown) [facility] (no value) [facility] Result panel 2593 (unknown) (no date) (unknown) [facility] (no value) [facility] Result panel 2594 (unknown) (no date) (unknown) [facility] (no value) [facility] Result panel 2595 (unknown) (no date) (unknown) [facility] (no value) [facility] Result panel 2596 (unknown) (no date) (unknown) [facility] (no value) [facility] Result panel 2597 (unknown) (no date) (unknown) [facility] (no value) [facility] Result panel 2598 (unknown) (no date) (unknown) [facility] (no value) [facility] Result panel 2599 (unknown) (no date) (unknown) [facility] (no value) [facility] Result panel 2600 (unknown) (no date) (unknown) [facility] (no value) [facility] Result panel 2601 (unknown) (no date) (unknown) [facility] (no value) [facility] Result panel 2602 (unknown) (no date) (unknown) [facility] (no value) [facility] Result panel 2603 (unknown) (no date) (unknown) [facility] (no value) [facility] Result panel 2604 (unknown) (no date) (unknown) [facility] (no value) [facility] Result panel 2605 (unknown) (no date) (unknown) [facility] (no value) [facility] Result panel 2606 (unknown) (no date) (unknown) Walk-In (no value) (units [facility] [facility] Result panel 2607 (unknown) (no date) (unknown) Walk-In (no value) [facility] Result panel 2608 (unknown) (no date) (unknown) [facility] (no value) [facility] Result panel 2609 (unknown) (no date) (unknown) [facility] (no value) [facility] Result panel 2610 (unknown) (no date) (unknown) [facility] (no value) [facility] Result panel 2611 (unknown) (no date) (unknown) [facility] (no value) [facility] Result panel 2612 (unknown) (no date) (unknown) [facility] (no value) [facility] Result panel 2613 (unknown) (no date) (unknown) Walk-In (no value) [facility] Result panel 2614 (unknown) (no date) (unknown) [facility] (no value) [facility] Result panel 2615 (unknown) (no date) (unknown) [facility] (no value) [facility] Result panel 2616 (unknown) (no date) (unknown) Walk-In (no value) [facility] Result panel 2617 (unknown) (no date) (unknown) [facility] (no value) [facility] Result panel 2618 (unknown) (no date) (unknown) [facility] (no value) [facility] Result panel 2619 (unknown) (no date) (unknown) [facility] (no value) [facility] Result panel 2620 (unknown) (no date) (unknown) [facility] (no value) [facility] Result panel 2621 (unknown) (no date) (unknown) [facility] (no value) [facility] Result panel 2622 (unknown) (no date) (unknown) Walk-In (no value) [facility] Result panel 2623 (unknown) (no date) (unknown) [facility] (no value) [facility] Result panel 2624 (unknown) (no date) (unknown) [facility] (no value) [facility] Result panel 2625 (unknown) (no date) (unknown) [facility] (no value) [facility] Result panel 2626 (unknown) (no date) (unknown) Walk-In (no value) [facility] Result panel 2627 (unknown) (no date) (unknown) [facility] (no value) [facility] Result panel 2628 (unknown) (no date) (unknown) [facility] (no value) [facility] Result panel 2629 (unknown) (no date) (unknown) [facility]-In (no value) [facility] Result panel 2630 (unknown) (no date) (unknown) Walk-In (no value) [facility] Result panel 2631 (unknown) (no date) (unknown) [facility] (no value) [facility] Result panel 2632 (unknown) (no date) (unknown) [facility] (no value) [facility] Result panel 2633 (unknown) (no date) (unknown) [facility] (no value) [facility] Result panel 2634 (unknown) (no date) (unknown) [facility] (no value) [facility] Result panel 2635 (unknown) (no date) (unknown) Walk-In (no value) [facility] Result panel 2636 (unknown) (no date) (unknown) [facility]-In (no value) [facility] Result panel 2637 (unknown) (no date) (unknown) Walk-In (no value) [facility] Result panel 2638 (unknown) (no date) (unknown) Walk-In (no value) [facility] Result panel 2639 (unknown) (no date) (unknown) Walk-In (no value) [facility] Result panel 2640 (unknown) (no date) (unknown) Walk-In (no value) [facility] Result panel 2641 (unknown) (no date) (unknown) Walk-In (no value) [facility] Result panel 2642 (unknown) (no date) (unknown) [facility]-In (no value) [facility] Result panel 2643 (unknown) (no date) (unknown) [facility]-In (no value) [facility] Result panel 2644 (unknown) (no date) (unknown) [facility]-In (no value) [facility] Result panel 2645 (unknown) (no date) (unknown) [facility] (no value) [facility] Result panel 2646 (unknown) (no date) (unknown) [facility] (no value) [facility] Result panel 2647 (unknown) (no date) (unknown) [facility] (no value) [facility] Result panel 2648 (unknown) (no date) (unknown) [facility] (no value) [facility] Result panel 2649 (unknown) (no date) (unknown) [facility] (no value) [facility] Result panel 2650 (unknown) (no date) (unknown) [facility] (no value) [facility] Result panel 2651 (unknown) (no date) (unknown) [facility] (no value) [facility] Result panel 2652 (unknown) (no date) (unknown) [facility] (no value) [facility] Result panel 2653 (unknown) (no date) (unknown) [facility] (no value) [facility] Result panel 2654 (unknown) (no date) (unknown) [facility]-In (no value) [facility] Result panel 2655 (unknown) (no date) (unknown) Walk-In (no value) [facility] Result panel 2656 (unknown) (no date) (unknown) Walk-In (no value) [facility] Result panel 2657 (unknown) (no date) (unknown) [facility]-In (no value) [facility] Result panel 2658 (unknown) (no date) (unknown) [facility]-In (no value) [facility] Result panel 2659 (unknown) (no date) (unknown) [facility]-In (no value) [facility] Result panel 2660 (unknown) (no date) (unknown) [facility] (no value) [facility] Result panel 2661 (unknown) (no date) (unknown) [facility]-In (no value) [facility] Result panel 2662 (unknown) (no date) (unknown) [facility] (no value) [facility] Result panel 2663 (unknown) (no date) (unknown) [facility] (no value) [facility] Result panel 2664 (unknown) (no date) (unknown) [facility] (no value) [facility] Result panel 2665 (unknown) (no date) (unknown) [facility] (no value) [facility] Result panel 2666 (unknown) (no date) (unknown) [facility] (no value) [facility] Result panel 2667 (unknown) (no date) (unknown) [facility]-In (no value) [facility] Result panel 2668 (unknown) (no date) (unknown) [facility]-In (no value) [facility] Result panel 2669 (unknown) (no date) (unknown) [facility]-In (no value) [facility] Result panel 2670 (unknown) (no date) (unknown) [facility]-In (no value) [facility] Result panel 2671 (unknown) (no date) (unknown) [facility]-In (no value) [facility] Result panel 2672 (unknown) (no date) (unknown) [facility]-In (no value) [facility] Result panel 2673 (unknown) (no date) (unknown) [facility] (no value) [facility] Result panel 2674 (unknown) (no date) (unknown) [facility]-In (no value) [facility] Result panel 2675 (unknown) (no date) (unknown) [facility]-In (no value) [facility] Result panel 2676 (unknown) (no date) (unknown) [facility]-In (no value) [facility] Result panel 2677 (unknown) (no date) (unknown) [facility]-In (no value) [facility] Result panel 2678 (unknown) (no date) (unknown) [facility]-In (no value) [facility] Result panel 2679 (unknown) (no date) (unknown) [facility]-In (no value) [facility] Result panel 2680 (unknown) (no date) (unknown) Walk-In (no value) [facility] Result panel 2681 (unknown) (no date) (unknown) Walk-In (no value) [facility] Result panel 2682 (unknown) (no date) (unknown) [facility]-In (no value) [facility] Result panel 2683 (unknown) (no date) (unknown) Walk-In (no value) [facility] Result panel 2684 (unknown) (no date) (unknown) [facility]-In (no value) [facility] Result panel 2685 (unknown) (no date) (unknown) [facility]-In (no value) [facility] Result panel 2686 (unknown) (no date) (unknown) [facility] (no value) [facility] Result panel 2687 (unknown) (no date) (unknown) [facility] (no value) [facility] Result panel 2688 (unknown) (no date) (unknown) [facility] (no value) [facility] Result panel 2689 (unknown) (no date) (unknown) [facility]-In (no value) [facility] Result panel 2690 (unknown) (no date) (unknown) [facility] (no value) [facility] Result panel 2691 (unknown) (no date) (unknown) [facility] (no value) [facility] Result panel 2692 (unknown) (no date) (unknown) [facility] (no value) [facility] Result panel 2693 (unknown) (no date) (unknown) [facility] (no value) [facility] Result panel 2694 (unknown) (no date) (unknown) [facility]-In (no value) [facility] Result panel 2695 (unknown) (no date) (unknown) [facility]-In (no value) [facility] Result panel 2696 (unknown) (no date) (unknown) [facility]-In (no value) [facility] Result panel 2697 (unknown) (no date) (unknown) [facility] (no value) [facility] Result panel 2698 (unknown) (no date) (unknown) [facility]-In (no value) [facility] Result panel 2699 (unknown) (no date) (unknown) [facility]-In (no value) [facility] Result panel 2700 (unknown) (no date) (unknown) [facility] (no value) [facility] Result panel 2701 (unknown) (no date) (unknown) [facility]-In (no value) [facility] Result panel 2702 (unknown) (no date) (unknown) [facility]-In (no value) [facility] Result panel 2703 (unknown) (no date) (unknown) [facility] (no value) [facility] Result panel 2704 (unknown) (no date) (unknown) [facility] (no value) [facility] Result panel 2705 (unknown) (no date) (unknown) [facility] (no value) [facility] Result panel 2706 (unknown) (no date) (unknown) [facility]-In (no value) [facility] Result panel 2707 (unknown) (no date) (unknown) [facility]-In (no value) [facility] Result panel 2708 (unknown) (no date) (unknown) [facility]-In (no value) [facility] Result panel 2709 (unknown) (no date) (unknown) [facility] (no value) [facility] Result panel 2710 (unknown) (no date) (unknown) [facility] (no value) [facility] Result panel 2711 (unknown) (no date) (unknown) [facility]-In (no value) [facility] Result panel 2712 (unknown) (no date) (unknown) [facility]-In (no value) [facility] Result panel 2713 (unknown) (no date) (unknown) [facility]-In (no value) [facility] Result panel 2714 (unknown) (no date) (unknown) [facility] (no value) [facility] Result panel 2715 (unknown) (no date) (unknown) [facility] (no value) [facility] Result panel 2716 (unknown) (no date) (unknown) [facility] (no value) [facility] Result panel 2717 (unknown) (no date) (unknown) [facility]-In (no value) [facility] Result panel 2718 (unknown) (no date) (unknown) [facility] (no value) [facility] Result panel 2719 (unknown) (no date) (unknown) [facility] (no value) [facility] Result panel 2720 (unknown) (no date) (unknown) [facility] (no value) [facility] Result panel 2721 (unknown) (no date) (unknown) [facility]-In (no value) [facility] Result panel 2722 (unknown) (no date) (unknown) [facility]-In (no value) [facility] Result panel 2723 (unknown) (no date) (unknown) [facility] (no value) [facility] Result panel 2724 (unknown) (no date) (unknown) [facility] (no value) [facility] Result panel 2725 (unknown) (no date) (unknown) [facility]-In (no value) [facility] Result panel 2726 (unknown) (no date) (unknown) [facility] (no value) [facility] Result panel 2727 (unknown) (no date) (unknown) [facility] (no value) [facility] Result panel 2728 (unknown) (no date) (unknown) [facility] (no value) [facility] Result panel 2729 (unknown) (no date) (unknown) [facility] (no value) [facility] Result panel 2730 (unknown) (no date) (unknown) [facility] (no value) [facility] Result panel 2731 (unknown) (no date) (unknown) [facility] (no value) [facility] Result panel 2732 (unknown) (no date) (unknown) [facility]-In (no value) [facility] Result panel 2733 (unknown) (no date) (unknown) [facility] (no value) [facility] Result panel 2734 (unknown) (no date) (unknown) [facility] (no value) [facility] Result panel 2735 (unknown) (no date) (unknown) [facility] (no value) [facility] Result panel 2736 (unknown) (no date) (unknown) [facility] (no value) [facility] Result panel 2737 (unknown) (no date) (unknown) [facility] (no value) [facility] Result panel 2738 (unknown) (no date) (unknown) [facility] (no value) [facility] Result panel 2739 (unknown) (no date) (unknown) [facility] (no value) [facility] Result panel 2740 (unknown) (no date) (unknown) [facility] (no value) [facility] Result panel 2741 (unknown) (no date) (unknown) [facility] (no value) [facility] Result panel 2742 (unknown) (no date) (unknown) [facility] (no value) [facility] Result panel 2743 (unknown) (no date) (unknown) [facility] (no value) [facility] Result panel 2744 (unknown) (no date) (unknown) [facility] (no value) [facility] Result panel 2745 (unknown) (no date) (unknown) [facility] (no value) [facility] Result panel 2746 (unknown) (no date) (unknown) [facility] (no value) [facility] Result panel 2747 (unknown) (no date) (unknown) [facility] (no value) [facility] Result panel 2748 (unknown) (no date) (unknown) [facility] (no value) [facility] Result panel 2749 (unknown) (no date) (unknown) [facility] (no value) [facility] Result panel 2750 (unknown) (no date) (unknown) [facility] (no value) [facility] Result panel 2751 (unknown) (no date) (unknown) [facility] (no value) [facility] Result panel 2752 (unknown) (no date) (unknown) [facility] (no value) [facility] Result panel 2753 (unknown) (no date) (unknown) [facility] (no value) [facility] Result panel 2754 (unknown) (no date) (unknown) [facility] (no value) [facility] Result panel 2755 (unknown) (no date) (unknown) [facility] value[facility]units [facility]unknown) [facility] Result panel 2756 (unknown) (no date) (unknown) [facility] (no value) [facility] Result panel 2757 (unknown) (no date) (unknown) [facility] (no value) [facility] Result panel 2758 (unknown) (no date) (unknown) [facility] (no value) [facility] Result panel 2759 (unknown) (no date) (unknown) [facility] (no value) [facility] Result panel 2760 (unknown) (no date) (unknown) [facility] (no value) [facility] Result panel 2761 (unknown) (no date) (unknown) [facility] (no value) [facility] Result panel 2762 (unknown) (no date) (unknown) [facility]-In (no value) [facility] Result panel 2763 (unknown) (no date) (unknown) [facility]-In (no value) [facility] Result panel 2764 (unknown) (no date) (unknown) [facility]-In (no value) ([facility] Result panel 2765 (unknown) (no date) (unknown) [facility]-In (no value) [facility] Result panel 2766 (unknown) (no date) (unknown) [facility]-In (no value) [facility] Result panel 2767 (unknown) (no date) (unknown) [facility]-In (no value) [facility] Result panel 2768 (unknown) (no date) (unknown) [facility]-In (no value) [facility] Result panel 2769 (unknown) (no date) (unknown) [facility]-In (no value) [facility] Result panel 2770 (unknown) (no date) (unknown) [facility]-In (no value) [facility] Result panel 2771 (unknown) (no date) (unknown) [facility]-In (no value) [facility] Result panel 2772 (unknown) (no date) (unknown) Walk-In (no value) ([facility] Result panel 2773 (unknown) (no date) (unknown) [facility]-In (no value) [facility] Result panel 2774 (unknown) (no date) (unknown) Walk-In (no value) [facility] Result panel 2775 (unknown) (no date) (unknown) Walk-In (no value) [facility] Result panel 2776 (unknown) (no date) (unknown) Walk-In (no value) [facility] Result panel 2777 (unknown) (no date) (unknown) Walk-In (no value) [facility] Result panel 2778 (unknown) (no date) (unknown) Walk-In (no value) [facility] Result panel 2779 (unknown) (no date) (unknown) Walk-In (no value) [facility] Result panel 2780 (unknown) (no date) (unknown) Walk-In (no value) [facility] Result panel 2781 (unknown) (no date) (unknown) Walk-In (no value) [facility] Result panel 2782 (unknown) (no date) (unknown) Walk-In (no value) [facility] Result panel 2783 (unknown) (no date) (unknown) Walk-In (no value) [facility] Result panel 2784 (unknown) (no date) (unknown) Walk-In (no value) [facility] Result panel 2785 (unknown) (no date) (unknown) Walk-In (no value) [facility] Result panel 2786 (unknown) (no date) (unknown) Walk-In (no value) [facility] Result panel 2787 (unknown) (no date) (unknown) Walk-In (no value) [facility] Result panel 2788 (unknown) (no date) (unknown) Walk-In (no value) [facility] Result panel 2789 (unknown) (no date) (unknown) Walk-In (no value) [facility] Result panel 2790 (unknown) (no date) (unknown) Walk-In (no value) [facility] Result panel 2791 (unknown) (no date) (unknown) Walk-In (no value) [facility] Result panel 2792 (unknown) (no date) (unknown) Walk-In (no value) [facility] Result panel 2793 (unknown) (no date) (unknown) Walk-In (no value) [facility] Result panel 2794 (unknown) (no date) (unknown) Walk-In (no value) [facility] Result panel 2795 (unknown) (no date) (unknown) Walk-In (no value) [facility] Result panel 2796 (unknown) (no date) (unknown) Walk-In (no value) [facility] Result panel 2797 (unknown) (no date) (unknown) Walk-In (no value) [facility] Result panel 2798 (unknown) (no date) (unknown) Walk-In (no value) [facility] Result panel 2799 (unknown) (no date) (unknown) Walk-In (no value) [facility] Result panel 2800 (unknown) (no date) (unknown) Walk-In (no value) [facility] Result panel 2801 (unknown) (no date) (unknown) Walk-In (no value) [facility] Result panel 2802 (unknown) (no date) (unknown) Walk-In (no value) [facility] Result panel 2803 (unknown) (no date) (unknown) Walk-In (no value) [facility] Result panel 2804 (unknown) (no date) (unknown) Walk-In (no value) [facility] Result panel 2805 (unknown) (no date) (unknown) [facility]-In (no value) [facility] Result panel 2806 (unknown) (no date) (unknown) Walk-In (no value) [facility] Result panel 2807 (unknown) (no date) (unknown) Walk-In (no value) [facility] Result panel 2808 (unknown) (no date) (unknown) Walk-In (no value) [facility] Result panel 2809 (unknown) (no date) (unknown) Walk-In (no value) [facility] Result panel 2810 (unknown) (no date) (unknown) Walk-In (no value) [facility] Result panel 2811 (unknown) (no date) (unknown) Walk-In (no value) [facility] Result panel 2812 (unknown) (no date) (unknown) Walk-In (no value) [facility] Result panel 2813 (unknown) (no date) (unknown) Walk-In (no value) [facility] Result panel 2814 (unknown) (no date) (unknown) Walk-In (no value) [facility] Result panel 2815 (unknown) (no date) (unknown) Walk-In (no value) [facility] Result panel 2816 (unknown) (no date) (unknown) Walk-In (no value) [facility] Result panel 2817 (unknown) (no date) (unknown) Walk-In (no value) [facility] Result panel 2818 (unknown) (no date) (unknown) Walk-In (no value) [facility] Result panel 2819 (unknown) (no date) (unknown) Walk-In (no value) [facility] Result panel 2820 (unknown) (no date) (unknown) Walk-In (no value) [facility] Result panel 2821 (unknown) (no date) (unknown) Walk-In (no value) [facility] Result panel 2822 (unknown) (no date) (unknown) Walk-In (no value) [facility] Result panel 2823 (unknown) (no date) (unknown) Walk-In (no value) [facility] Result panel 2824 (unknown) (no date) (unknown) Walk-In (no value) [facility] Result panel 2825 (unknown) (no date) (unknown) Walk-In (no value) [facility] Result panel 2826 (unknown) (no date) (unknown) Walk-In (no value) [facility] Result panel 2827 (unknown) (no date) (unknown) Walk-In (no value) [facility] Result panel 2828 (unknown) (no date) (unknown) Walk-In (no value) [facility] Result panel 2829 (unknown) (no date) (unknown) Walk-In (no value) [facility] Result panel 2830 (unknown) (no date) (unknown) Walk-In (no value) [facility] Result panel 2831 (unknown) (no date) (unknown) [facility]-In (no value) [facility] Result panel 2832 (unknown) (no date) (unknown) Walk-In (no value) [facility] Result panel 2833 (unknown) (no date) (unknown) Walk-In (no value) [facility] Result panel 2834 (unknown) (no date) (unknown) Walk-In (no value) [facility] Result panel 2835 (unknown) (no date) (unknown) Walk-In (no value) [facility] Result panel 2836 (unknown) (no date) (unknown) Walk-In (no value) [facility] Result panel 2837 (unknown) (no date) (unknown) Walk-In (no value) [facility] Result panel 2838 (unknown) (no date) (unknown) Walk-In (no value) ([facility] Result panel 2839 (unknown) (no date) (unknown) [facility]-In (no value) [facility] Result panel 2840 (unknown) (no date) (unknown) [facility]-In (no value) [facility] Result panel 2841 (unknown) (no date) (unknown) [facility]-In (no value) [facility] Result panel 2842 (unknown) (no date) (unknown) Walk-In (no value) [facility] Result panel 2843 (unknown) (no date) (unknown) Walk-In (no value) [facility] Result panel 2844 (unknown) (no date) (unknown) Walk-In (no value) [facility] Result panel 2845 (unknown) (no date) (unknown) Walk-In (no value) [facility] Result panel 2846 (unknown) (no date) (unknown) Walk-In (no value) [facility] Result panel 2847 (unknown) (no date) (unknown) Walk-In (no value) [facility] Result panel 2848 (unknown) (no date) (unknown) Walk-In (no value) [facility] Result panel 2849 (unknown) (no date) (unknown) Walk-In (no value) [facility] Result panel 2850 (unknown) (no date) (unknown) Walk-In (no value) [facility] Result panel 2851 (unknown) (no date) (unknown) Walk-In (no value) [facility] Result panel 2852 (unknown) (no date) (unknown) Walk-In (no value) [facility] Result panel 2853 (unknown) (no date) (unknown) Walk-In (no value) [facility] Result panel 2854 (unknown) (no date) (unknown) Walk-In (no value) [facility] Result panel 2855 (unknown) (no date) (unknown) Walk-In (no value) [facility] Result panel 2856 (unknown) (no date) (unknown) Walk-In (no value) [facility] Result panel 2857 (unknown) (no date) (unknown) [facility]-In (no value) [facility] Result panel 2858 (unknown) (no date) (unknown) [facility]-In (no value) [facility] Result panel 2859 (unknown) (no date) (unknown) Walk-In (no value) [facility] Result panel 2860 (unknown) (no date) (unknown) Walk-In (no value) [facility] Result panel 2861 (unknown) (no date) (unknown) Walk-In (no value) [facility] Result panel 2862 (unknown) (no date) (unknown) [facility]-In (no value) [facility] Result panel 2863 (unknown) (no date) (unknown) Walk-In (no value) [facility] Result panel 2864 (unknown) (no date) (unknown) [facility]-In (no value) [facility] Result panel 2865 (unknown) (no date) (unknown) [facility]-In (no value) [facility] Result panel 2866 (unknown) (no date) (unknown) Walk-In (no value) [facility] Result panel 2867 (unknown) (no date) (unknown) [facility] (no value) [facility] Result panel 2868 (unknown) (no date) (unknown) [facility]-In (no value) [facility] Result panel 2869 (unknown) (no date) (unknown) [facility]-In (no value) [facility] Result panel 2870 (unknown) (no date) (unknown) [facility] (no value) [facility] Result panel 2871 (unknown) (no date) (unknown) [facility]-In (no value) [facility] Result panel 2872 (unknown) (no date) (unknown) [facility] (no value) [facility] Result panel 2873 (unknown) (no (unknown) [facility]-In [facility] (no (units ( unknown) date) [facility]) unknown) [facility] Result panel 2874 (unknown) (no date) (unknown) [facility] (no value) [facility] Result panel 2875 (unknown) (no date) (unknown) [facility]-In (no value) [facility] Result panel 2876 (unknown) (no date) (unknown) [facility] (no value) [facility] Result panel 2877 (unknown) (no date) (unknown) [facility] (no value) [facility] Result panel 2878 (unknown) (no date) (unknown) [facility] (no value) [facility] Result panel 2879 (unknown) (no date) (unknown) [facility] (no value) [facility] Result panel 2880 (unknown) (no date) (unknown) [facility]-In (no value) [facility] Result panel 2881 (unknown) (no date) (unknown) [facility]-In (no value) [facility] Result panel 2882 (unknown) (no date) (unknown) [facility]-In (no value) [facility] Result panel 2883 (unknown) (no date) (unknown) [facility]-In (no value) [facility] Result panel 2884 (unknown) (no date) (unknown) [facility]-In (no value) [facility] Result panel 2885 (unknown) (no date) (unknown) [facility]-In (no value) ([facility] Result panel 2886 (unknown) (no date) (unknown) [facility]-In (no value) [facility] Result panel 2887 (unknown) (no date) (unknown) Walk-In (no value) [facility] Result panel 2888 (unknown) (no date) (unknown) Walk-In (no value) ([facility] Result panel 2889 (unknown) (no date) (unknown) [facility]-In (no value) [facility] Result panel 2890 (unknown) (no date) (unknown) Walk-In (no value) [facility] Result panel 2891 (unknown) (no date) (unknown) Walk-In (no value) [facility] Result panel 2892 (unknown) (no date) (unknown) [facility]-In (no value) [facility] Result panel 2893 (unknown) (no date) (unknown) Walk-In (no value) [facility] Result panel 2894 (unknown) (no date) (unknown) Walk-In (no value) ([facility] Result panel 2895 (unknown) (no date) (unknown) [facility]-In (no value) [facility] Result panel 2896 (unknown) (no date) (unknown) [facility]-In (no value) [facility] Result panel 2897 (unknown) (no date) (unknown) [facility]-In (no value) ([facility] Result panel 2898 (unknown) (no date) (unknown) [facility]-In (no value) [facility] Result panel 2899 (unknown) (no date) (unknown) Walk-In (no value) [facility] Result panel 2900 (unknown) (no date) (unknown) [facility]-In (no value) [facility] Result panel 2901 (unknown) (no date) (unknown) [facility]-In (no value) [facility] Result panel 2902 (unknown) (no date) (unknown) [facility]-In (no value) ([facility] Result panel 2903 (unknown) (no date) (unknown) [facility]-In (no value) [facility] Result panel 2904 (unknown) (no date) (unknown) Walk-In (no value) [facility] Result panel 2905 (unknown) (no date) (unknown) [facility]-In (no value) ([facility] Result panel 2906 (unknown) (no date) (unknown) Walk-In (no value) [facility] Result panel 2907 (unknown) (no date) (unknown) [facility]-In (no value) ([facility] Result panel 2908 (unknown) (no date) (unknown) [facility]-In (no value) [facility] Result panel 2909 (unknown) (no date) (unknown) [facility]-In (no value) [facility] Result panel 2910 (unknown) (no date) (unknown) [facility]-In (no value) [facility] Result panel 2911 (unknown) (no date) (unknown) [facility]-In (no value) [facility] Result panel 2912 (unknown) (no date) (unknown) [facility] (no value) [facility] Result panel 2913 (unknown) (no date) (unknown) [facility]-In (no value) [facility] Result panel 2914 (unknown) (no date) (unknown) [facility]-In (no value) [facility] Result panel 2915 (unknown) (no date) (unknown) Walk-In (no value) [facility] Result panel 2916 (unknown) (no date) (unknown) [facility]-In (no value) [facility] Result panel 2917 (unknown) (no date) (unknown) [facility]-In (no value) [facility] Result panel 2918 (unknown) (no date) (unknown) [facility]-In (no value) [facility] Result panel 2919 (unknown) (no date) (unknown) [facility]-In (no value) [facility] Result panel 2920 (unknown) (no date) (unknown) [facility]-In (no value) [facility] Result panel 2921 (unknown) (no date) (unknown) Walk-In (no value) [facility] Result panel 2922 (unknown) (no date) (unknown) Walk-In (no value) [facility] Result panel 2923 (unknown) (no date) (unknown) Walk-In (no value) [facility] Result panel 2924 (unknown) (no date) (unknown) Walk-In (no value) [facility] Result panel 2925 (unknown) (no date) (unknown) Walk-In (no value) ([facility] Result panel 2926 (unknown) (no date) (unknown) [facility]-In (no value) ([facility] Result panel 2927 (unknown) (no date) (unknown) Walk-In (no value) [facility] Result panel 2928 (unknown) (no date) (unknown) Walk-In (no value) ([facility] Result panel 2929 (unknown) (no date) (unknown) Walk-In (no value) ([facility] Result panel 2930 (unknown) (no date) (unknown) Walk-In (no value) ([facility] Result panel 2931 (unknown) (no date) (unknown) Walk-In (no value) ([facility] Result panel 2932 (unknown) (no date) (unknown) Walk-In (no value) ([facility] Result panel 2933 (unknown) (no date) (unknown) Walk-In (no value) ([facility] Result panel 2934 (unknown) (no date) (unknown) Walk-In (no value) ([facility] Result panel 2935 (unknown) (no date) (unknown) Walk-In (no value) ([facility] Result panel 2936 (unknown) (no date) (unknown) Walk-In (no value) ([facility] Result panel 2937 (unknown) (no date) (unknown) [facility]-In (no value) ([facility] Result panel 2938 (unknown) (no date) (unknown) Walk-In (no value) ([facility] Result panel 2939 (unknown) (no date) (unknown) Walk-In (no value) ([facility]own[facility] Result panel 2940 (unknown) (no date) (unknown) Walk-In (no value) ([facility] nown[facility] Result panel 2941 (unknown) (no date) (unknown) Walk-In (no value) ([facility] nown[facility] Result panel 2942 (unknown) (no date) (unknown) [facility]no value) [facility] Result panel 2943 (unknown) (no date) (unknown) [facility] (no value) [facility] Result panel 2944 (unknown) (no date) (unknown) [facility] (no value) [facility] Result panel 2945 (unknown) (no date) (unknown) [facility] (no value) [facility] Result panel 2946 (unknown) (no date) (unknown) [facility] (no value) [facility] Result panel 2947 (unknown) (no date) (unknown) [facility] (no value) [facility] Result panel 2948 (unknown) (no date) (unknown) [facility] (no value) [facility] Result panel 2949 (unknown) (no date) (unknown) [facility] (no value) [facility] Result panel 2950 (unknown) (no date) (unknown) [facility] (no value) [facility] Result panel 2951 (unknown) (no date) (unknown) [facility] (no value) [facility] Result panel 2952 (unknown) (no date) (unknown) [facility] (no value) [facility] Result panel 2953 (unknown) (no date) (unknown) [facility] (no value) [facility] Result panel 2954 (unknown) (no date) (unknown) [facility] (no value) [facility] Result panel 2955 (unknown) (no date) (unknown) [facility] (no value) [facility] Result panel 2956 (unknown) (no date) (unknown) [facility] (no value) [facility] Result panel 2957 (unknown) (no date) (unknown) [facility] (no value) [facility] Result panel 2958 (unknown) (no date) (unknown) [facility] (no value) [facility] Result panel 2959 (unknown) (no date) (unknown) [facility] (no value) [facility] Result panel 2960 (unknown) (no date) (unknown) [facility] (no value) [facility] Result panel 2961 (unknown) (no date) (unknown) [facility] (no value) [facility] Result panel 2962 (unknown) (no date) (unknown) [facility] (no value) [facility] Result panel 2963 (unknown) (no date) (unknown) [facility] (no value) [facility] Result panel 2964 (unknown) (no date) (unknown) [facility] (no value) [facility] Result panel 2965 (unknown) (no date) (unknown) [facility] (no value) [facility] Result panel 2966 (unknown) (no date) (unknown) [facility] (no value) [facility] Result panel 2967 (unknown) (no date) (unknown) [facility] (no value) [facility] Result panel 2968 (unknown) (no date) (unknown) [facility] (no value) [facility] Result panel 2969 (unknown) (no date) (unknown) [facility] (no value) [facility] Result panel 2970 (unknown) (no date) (unknown) [facility] (no value) [facility] Result panel 2971 (unknown) (no date) (unknown) [facility] (no value) [facility] Result panel 2972 (unknown) (no date) (unknown) [facility] (no value) [facility] Result panel 2973 (unknown) (no date) (unknown) [facility] (no value) [facility] Result panel 2974 (unknown) (no date) (unknown) [facility] (no value) [facility] Result panel 2975 (unknown) (no date) (unknown) [facility] (no value) [facility] Result panel 2976 (unknown) (no date) (unknown) [facility] (no value) [facility] Result panel 2977 (unknown) (no date) (unknown) [facility] (no value) [facility] Result panel 2978 (unknown) (no date) (unknown) [facility] (no value) [facility] Result panel 2979 (unknown) (no date) (unknown) [facility] (no value) [facility] Result panel 2980 (unknown) (no date) (unknown) [facility] (no value) [facility] Result panel 2981 (unknown) (no date) (unknown) [facility] (no value) [facility] Result panel 2982 (unknown) (no date) (unknown) [facility] (no value) [facility] Result panel 2983 (unknown) (no date) (unknown) [facility] (no value) [facility] Result panel 2984 (unknown) (no date) (unknown) [facility] (no value) [facility] Result panel 2985 (unknown) (no date) (unknown) [facility] (no value) [facility] Result panel 2986 (unknown) (no date) (unknown) [facility] (no value) [facility] Result panel 2987 (unknown) (no date) (unknown) [facility] (no value) [facility] Result panel 2988 (unknown) (no date) (unknown) [facility] (no value) [facility] Result panel 2989 (unknown) (no date) (unknown) [facility] (no value) [facility] Result panel 2990 (unknown) (no date) (unknown) [facility] (no value) [facility] Result panel 2991 (unknown) (no date) (unknown) [facility] (no value) [facility] Result panel 2992 (unknown) (no date) (unknown) [facility] (no value) [facility] Result panel 2993 (unknown) (no date) (unknown) [facility] (no value) [facility] Result panel 2994 (unknown) (no date) (unknown) [facility] (no value) [facility] Result panel 2995 (unknown) (no date) (unknown) [facility] (no value) [facility] Result panel 2996 (unknown) (no date) (unknown) [facility] (no value) [facility] Result panel 2997 (unknown) (no date) (unknown) [facility] (no value) [facility] Result panel 2998 (unknown) (no date) (unknown) [facility] (no value) [facility] Result panel 2999 (unknown) (no date) (unknown) [facility] (no value) [facility] Result panel 3000 (unknown) (no date) (unknown) [facility] (no value) [facility] Result panel 3001 (unknown) (no date) (unknown) [facility] (no value) [facility] Result panel 3002 (unknown) (no date) (unknown) [facility] (no value) [facility] Result panel 3003 (unknown) (no date) (unknown) [facility] (no value) [facility] Result panel 3004 (unknown) (no date) (unknown) [facility] (no value) [facility] Result panel 3005 (unknown) (no date) (unknown) [facility] (no value) [facility] Result panel 3006 (unknown) (no date) (unknown) [facility] (no value) [facility] Result panel 3007 (unknown) (no date) (unknown) [facility] (no value) [facility] Result panel 3008 (unknown) (no date) (unknown) [facility] (no value) [facility] Result panel 3009 (unknown) (no date) (unknown) [facility] (no value) [facility] Result panel 3010 (unknown) (no date) (unknown) [facility] (no value) [facility] Result panel 3011 (unknown) (no date) (unknown) [facility] (no value) [facility] Result panel 3012 (unknown) (no date) (unknown) [facility] (no value) [facility] Result panel 3013 (unknown) (no date) (unknown) [facility] (no value) [facility] Result panel 3014 (unknown) (no date) (unknown) [facility] (no value) [facility] Result panel 3015 (unknown) (no date) (unknown) [facility] (no value) [facility] Result panel 3016 (unknown) (no date) (unknown) [facility] (no value) [facility] Result panel 3017 (unknown) (no date) (unknown) [facility] (no value) [facility] Result panel 3018 (unknown) (no date) (unknown) [facility] (no value) [facility] Result panel 3019 (unknown) (no date) (unknown) [facility] (no value) [facility] Result panel 3020 (unknown) (no date) (unknown) [facility] (no value) [facility] Result panel 3021 (unknown) (no date) (unknown) [facility] (no value) [facility] Result panel 3022 (unknown) (no date) (unknown) [facility] (no value) [facility] Result panel 3023 (unknown) (no date) (unknown) [facility] (no value) [facility] Result panel 3024 (unknown) (no date) (unknown) [facility] (no value) [facility] Result panel 3025 (unknown) (no date) (unknown) [facility] (no value) [facility] Result panel 3026 (unknown) (no date) (unknown) [facility] (no value) [facility] Result panel 3027 (unknown) (no date) (unknown) [facility] (no value) [facility] Result panel 3028 (unknown) (no date) (unknown) [facility] (no value) [facility] Result panel 3029 (unknown) (no date) (unknown) [facility] (no value) [facility] Result panel 3030 (unknown) (no date) (unknown) [facility] (no value) [facility] Result panel 3031 (unknown) (no date) (unknown) [facility] (no value) [facility] Result panel 3032 (unknown) (no date) (unknown) [facility] (no value) [facility] Result panel 3033 (unknown) (no date) (unknown) [facility] (no value) [facility] Result panel 3034 (unknown) (no date) (unknown) [facility] (no value) [facility] Result panel 3035 (unknown) (no date) (unknown) [facility] (no value) [facility] Result panel 3036 (unknown) (no date) (unknown) [facility] (no value) [facility] Result panel 3037 (unknown) (no date) (unknown) [facility] (no value) [facility] Result panel 3038 (unknown) (no date) (unknown) [facility] (no value) [facility] Result panel 3039 (unknown) (no date) (unknown) [facility] (no value) [facility] Result panel 3040 (unknown) (no date) (unknown) [facility] (no value) [facility] Result panel 3041 (unknown) (no date) (unknown) [facility] (no value) [facility] Result panel 3042 (unknown) (no date) (unknown) [facility] (no value) [facility] Result panel 3043 (unknown) (no date) (unknown) [facility] (no value) [facility] Result panel 3044 (unknown) (no date) (unknown) [facility] (no value) [facility] Result panel 3045 (unknown) (no date) (unknown) [facility] (no value) [facility] Result panel 3046 (unknown) (no date) (unknown) [facility] (no value) [facility] Result panel 3047 (unknown) (no date) (unknown) [facility] (no value) [facility] Result panel 3048 (unknown) (no date) (unknown) [facility] (no value) [facility] Result panel 3049 (unknown) (no date) (unknown) [facility] (no value) [facility] Result panel 3050 (unknown) (no date) (unknown) [facility] (no value) [facility] Result panel 3051 (unknown) (no date) (unknown) [facility] (no value) [facility] Result panel 3052 (unknown) (no date) (unknown) [facility] (no value) [facility] Result panel 3053 (unknown) (no date) (unknown) [facility] (no value) [facility] Result panel 3054 (unknown) (no date) (unknown) [facility] (no value) [facility] Result panel 3055 (unknown) (no date) (unknown) [facility] (no value) [facility] Result panel 3056 (unknown) (no date) (unknown) [facility] (no value) [facility] Result panel 3057 (unknown) (no date) (unknown) [facility] (no value) [facility] Result panel 3058 (unknown) (no date) (unknown) [facility] (no value) [facility] Result panel 3059 (unknown) (no date) (unknown) [facility] (no value) [facility] Result panel 3060 (unknown) (no date) (unknown) [facility] (no value) [facility] Result panel 3061 (unknown) (no date) (unknown) [facility] (no value) [facility] Result panel 3062 (unknown) (no date) (unknown) [facility] (no value) [facility] Result panel 3063 (unknown) (no date) (unknown) [facility] (no value) [facility] Result panel 3064 (unknown) (no date) (unknown) [facility] (no value) [facility] Result panel 3065 (unknown) (no date) (unknown) [facility] (no value) [facility] Result panel 3066 (unknown) (no date) (unknown) [facility] (no value) [facility] Result panel 3067 (unknown) (no date) (unknown) [facility] (no value) [facility] Result panel 3068 (unknown) (no date) (unknown) [facility] (no value) [facility] Result panel 3069 (unknown) (no date) (unknown) [facility] (no value) [facility] Result panel 3070 (unknown) (no date) (unknown) [facility] (no value) [facility] Result panel 3071 (unknown) (no date) (unknown) [facility] (no value) [facility] Result panel 3072 (unknown) (no date) (unknown) [facility] (no value) [facility] Result panel 3073 (unknown) (no date) (unknown) [facility] (no value) [facility] Result panel 3074 (unknown) (no date) (unknown) [facility] (no value) [facility] Result panel 3075 (unknown) (no date) (unknown) [facility] (no value) [facility] Result panel 3076 (unknown) (no date) (unknown) [facility] (no value) [facility] Result panel 3077 (unknown) (no date) (unknown) [facility] (no value) [facility] Result panel 3078 (unknown) (no date) (unknown) [facility] (no value) [facility] Result panel 3079 (unknown) (no date) (unknown) [facility] (no value) [facility] Result panel 3080 (unknown) (no date) (unknown) [facility] (no value) [facility] Result panel 3081 (unknown) (no date) (unknown) [facility] (no value) [facility] Result panel 3082 (unknown) (no date) (unknown) [facility] (no value) [facility] Result panel 3083 (unknown) (no date) (unknown) [facility] (no value) [facility] Result panel 3084 (unknown) (no date) (unknown) [facility] (no value) [facility] Result panel 3085 (unknown) (no date) (unknown) [facility] (no value) [facility] Result panel 3086 (unknown) (no date) (unknown) [facility] (no value) [facility] Result panel 3087 (unknown) (no date) (unknown) [facility] (no value) [facility] Result panel 3088 (unknown) (no date) (unknown) [facility] (no value) [facility] Result panel 3089 (unknown) (no date) (unknown) [facility] (no value) [facility] Result panel 3090 (unknown) (no date) (unknown) [facility] (no value) [facility] Result panel 3091 (unknown) (no date) (unknown) [facility] (no value) [facility] Result panel 3092 (unknown) (no date) (unknown) [facility] (no value) [facility] Result panel 3093 (unknown) (no date) (unknown) [facility] (no value) [facility] Result panel 3094 (unknown) (no date) (unknown) [facility] (no value) [facility] Result panel 3095 (unknown) (no date) (unknown) [facility] (no value) [facility] Result panel 3096 (unknown) (no date) (unknown) [facility] (no value) [facility] Result panel 3097 (unknown) (no date) (unknown) [facility] (no value) [facility] Result panel 3098 (unknown) (no date) (unknown) [facility] (no value) [facility] Result panel 3099 (unknown) (no date) (unknown) [facility] (no value) [facility] Result panel 3100 (unknown) (no date) (unknown) [facility] (no value) [facility] Result panel 3101 (unknown) (no date) (unknown) [facility] (no value) [facility] Result panel 3102 (unknown) (no date) (unknown) [facility] (no value) [facility] Result panel 3103 (unknown) (no date) (unknown) [facility] (no value) [facility] Result panel 3104 (unknown) (no date) (unknown) [facility] (no value) [facility] Result panel 3105 (unknown) (no date) (unknown) [facility] (no value) [facility] Result panel 3106 (unknown) (no date) (unknown) [facility] (no value) [facility] Result panel 3107 (unknown) (no date) (unknown) [facility] (no value) [facility] Result panel 3108 (unknown) (no date) (unknown) [facility] (no value) [facility] Result panel 3109 (unknown) (no date) (unknown) [facility] (no value) [facility] Result panel 3110 (unknown) (no date) (unknown) [facility] (no value[facility] Result panel 3111 (unknown) (no date) (unknown) [facility]-In (no value) [facility] Result panel 3112 (unknown) (no date) (unknown) [facility] (no value) [facility] Result panel 3113 (unknown) (no date) (unknown) [facility] (no value) [facility] Result panel 3114 (unknown) (no date) (unknown) [facility] (no value) [facility] Result panel 3115 (unknown) (no date) (unknown) [facility] (no value) [facility] Result panel 3116 (unknown) (no date) (unknown) [facility] (no value) [facility] Result panel 3117 (unknown) (no date) (unknown) [facility] (no value) [facility] Result panel 3118 (unknown) (no date) (unknown) [facility] (no value) [facility] Result panel 3119 (unknown) (no date) (unknown) [facility] (no value) [facility] Result panel 3120 (unknown) (no date) (unknown) [facility] (no value) [facility] Result panel 3121 (unknown) (no date) (unknown) [facility] (no value) [facility] Result panel 3122 (unknown) (no date) (unknown) [facility] (no value) [facility] Result panel 3123 (unknown) (no date) (unknown) [facility] (no value) [facility] Result panel 3124 (unknown) (no date) (unknown) [facility] (no value) [facility] Result panel 3125 (unknown) (no date) (unknown) [facility] (no value) [facility] Result panel 3126 (unknown) (no date) (unknown) [facility] (no value) [facility] Result panel 3127 (unknown) (no date) (unknown) [facility] (no value) [facility] Result panel 3128 (unknown) (no date) (unknown) [facility] (no value) [facility] Result panel 3129 (unknown) (no date) (unknown) [facility] (no value) [facility] Result panel 3130 (unknown) (no date) (unknown) [facility] (no value) [facility] Result panel 3131 (unknown) (no date) (unknown) [facility] (no value) [facility] Result panel 3132 (unknown) (no date) (unknown) [facility] (no value) [facility] Result panel 3133 (unknown) (no date) (unknown) [facility] (no value) [facility] Result panel 3134 (unknown) (no date) (unknown) [facility] (no value) [facility] Result panel 3135 (unknown) (no date) (unknown) [facility] (no value) [facility] Result panel 3136 (unknown) (no date) (unknown) [facility] (no value) [facility] Result panel 3137 (unknown) (no date) (unknown) [facility] (no value) [facility] Result panel 3138 (unknown) (no date) (unknown) [facility] (no value) [facility] Result panel 3139 (unknown) (no date) (unknown) [facility] (no value) [facility] Result panel 3140 (unknown) (no date) (unknown) [facility] (no value) [facility] Result panel 3141 (unknown) (no date) (unknown) [facility] (no value) [facility] Result panel 3142 (unknown) (no date) (unknown) [facility] (no value) [facility] Result panel 3143 (unknown) (no date) (unknown) [facility] (no value) [facility] Result panel 3144 (unknown) (no date) (unknown) [facility]-In (no value) [facility] Result panel 3145 (unknown) (no date) (unknown) [facility] (no value) [facility] Result panel 3146 (unknown) (no date) (unknown) [facility] (no value) [facility] Result panel 3147 (unknown) (no date) (unknown) [facility] (no value) [facility] Result panel 3148 (unknown) (no date) (unknown) [facility] (no value) [facility] Result panel 3149 (unknown) (no date) (unknown) [facility] (no value) [facility] Result panel 3150 (unknown) (no date) (unknown) [facility] (no value) [facility] Result panel 3151 (unknown) (no date) (unknown) [facility] (no value) [facility] Result panel 3152 (unknown) (no date) (unknown) [facility] (no value) [facility] Result panel 3153 (unknown) (no date) (unknown) [facility] (no value) [facility] Result panel 3154 (unknown) (no date) (unknown) [facility] (no value) [facility] Result panel 3155 (unknown) (no date) (unknown) [facility] (no value) [facility] Result panel 3156 (unknown) (no date) (unknown) [facility] (no value) [facility] Result panel 3157 (unknown) (no date) (unknown) [facility] (no value) [facility] Result panel 3158 (unknown) (no date) (unknown) [facility] (no value) [facility] Result panel 3159 (unknown) (no date) (unknown) [facility]-In (no value) [facility] Result panel 3160 (unknown) (no date) (unknown) [facility] (no value) [facility] Result panel 3161 (unknown) (no date) (unknown) [facility] (no value) [facility] Result panel 3162 (unknown) (no date) (unknown) [facility] (no value) [facility] Result panel 3163 (unknown) (no date) (unknown) [facility] (no value) [facility] Result panel 3164 (unknown) (no date) (unknown) [facility] (no value) [facility] Result panel 3165 (unknown) (no date) (unknown) [facility] (no value) [facility] Result panel 3166 (unknown) (no date) (unknown) [facility] (no value) [facility] Result panel 3167 (unknown) (no date) (unknown) [facility] (no value) [facility] Result panel 3168 (unknown) (no date) (unknown) [facility] (no value) [facility] Result panel 3169 (unknown) (no date) (unknown) [facility] (no value) [facility] Result panel 3170 (unknown) (no date) (unknown) [facility] (no value) [facility] Result panel 3171 (unknown) (no date) (unknown) [facility] (no value) [facility] Result panel 3172 (unknown) (no date) (unknown) [facility] (no value) [facility] Result panel 3173 (unknown) (no date) (unknown) [facility] (no value) [facility] Result panel 3174 (unknown) (no date) (unknown) [facility] (no value) [facility] Result panel 3175 (unknown) (no date) (unknown) [facility] (no value) [facility] Result panel 3176 (unknown) (no date) (unknown) [facility] (no value) [facility] Result panel 3177 (unknown) (no date) (unknown) [facility] (no value) [facility] Result panel 3178 (unknown) (no date) (unknown) [facility] (no value) [facility] Result panel 3179 (unknown) (no date) (unknown) [facility] (no value) [facility] Result panel 3180 (unknown) (no date) (unknown) [facility] (no value) [facility] Result panel 3181 (unknown) (no date) (unknown) [facility] (no value) [facility] Result panel 3182 (unknown) (no date) (unknown) [facility] (no value) [facility] Result panel 3183 (unknown) (no date) (unknown) [facility] (no value) [facility] Result panel 3184 (unknown) (no date) (unknown) [facility] (no value) [facility] Result panel 3185 (unknown) (no date) (unknown) [facility] (no value) [facility] Result panel 3186 (unknown) (no date) (unknown) [facility] (no value) [facility] Result panel 3187 (unknown) (no date) (unknown) [facility] (no value) [facility] Result panel 3188 (unknown) (no date) (unknown) [facility] (no value) [facility] Result panel 3189 (unknown) (no date) (unknown) [facility] (no value) [facility] Result panel 3190 (unknown) (no date) (unknown) [facility] (no value) [facility] Result panel 3191 (unknown) (no date) (unknown) [facility] (no value) [facility] Result panel 3192 (unknown) (no date) (unknown) [facility] (no value) [facility] Result panel 3193 (unknown) (no date) (unknown) [facility] (no value) [facility] Result panel 3194 (unknown) (no date) (unknown) [facility] (no value) [facility] Result panel 3195 (unknown) (no date) (unknown) [facility] (no value) [facility] Result panel 3196 (unknown) (no date) (unknown) [facility] (no value) [facility] Result panel 3197 (unknown) (no date) (unknown) [facility] (no value) [facility] Result panel 3198 (unknown) (no date) (unknown) [facility] (no value) [facility] Result panel 3199 (unknown) (no date) (unknown) [facility] (no value) [facility] Result panel 3200 (unknown) (no date) (unknown) [facility] (no value) [facility] Result panel 3201 (unknown) (no date) (unknown) [facility] (no value) [facility] Result panel 3202 (unknown) (no date) (unknown) [facility] (no value) [facility] Result panel 3203 (unknown) (no date) (unknown) [facility] (no value) [facility] Result panel 3204 (unknown) (no date) (unknown) [facility] (no value) [facility] Result panel 3205 (unknown) (no date) (unknown) [facility] (no value) [facility] Result panel 3206 (unknown) (no date) (unknown) [facility] (no value) [facility] Result panel 3207 (unknown) (no date) (unknown) [facility] (no value) [facility] Result panel 3208 (unknown) (no date) (unknown) [facility] (no value) [facility] Result panel 3209 (unknown) (no date) (unknown) [facility] (no value) [facility] Result panel 3210 (unknown) (no date) (unknown) [facility] (no value) [facility] Result panel 3211 (unknown) (no date) (unknown) [facility] (no value) [facility] Result panel 3212 (unknown) (no date) (unknown) [facility] (no value) [facility] Result panel 3213 (unknown) (no date) (unknown) [facility] (no value) [facility] Result panel 3214 (unknown) (no date) (unknown) [facility] (no value) [facility] Result panel 3215 (unknown) (no date) (unknown) [facility] (no value) [facility] Result panel 3216 (unknown) (no date) (unknown) [facility] (no value) [facility] Result panel 3217 (unknown) (no date) (unknown) [facility] (no value) [facility] Result panel 3218 (unknown) (no date) (unknown) [facility] (no value) [facility] Result panel 3219 (unknown) (no date) (unknown) [facility] (no value) [facility] Result panel 3220 (unknown) (no date) (unknown) [facility] (no value) [facility] Result panel 3221 (unknown) (no date) (unknown) [facility] (no value) [facility] Result panel 3222 (unknown) (no date) (unknown) [facility] (no value) [facility] Result panel 3223 (unknown) (no date) (unknown) [facility] (no value) [facility] Result panel 3224 (unknown) (no date) (unknown) [facility] (no value) [facility] Result panel 3225 (unknown) (no date) (unknown) [facility] (no value) [facility] Result panel 3226 (unknown) (no date) (unknown) [facility] (no value) [facility] Result panel 3227 (unknown) (no date) (unknown) [facility] (no value) [facility] Result panel 3228 (unknown) (no date) (unknown) [facility] (no value) [facility] Result panel 3229 (unknown) (no date) (unknown) [facility] (no value) [facility] Result panel 3230 (unknown) (no date) (unknown) [facility] (no value) [facility] Result panel 3231 (unknown) (no date) (unknown) [facility] (no value) [facility] Result panel 3232 (unknown) (no date) (unknown) [facility] (no value) [facility] Result panel 3233 (unknown) (no date) (unknown) [facility] (no value) [facility] Result panel 3234 (unknown) (no date) (unknown) [facility] (no value) [facility] Result panel 3235 (unknown) (no date) (unknown) [facility] (no value) [facility] Result panel 3236 (unknown) (no date) (unknown) [facility] (no value) [facility] Result panel 3237 (unknown) (no date) (unknown) [facility] (no value) [facility] Result panel 3238 (unknown) (no date) (unknown) [facility] (no value) [facility] Result panel 3239 (unknown) (no date) (unknown) [facility] (no value) [facility] Result panel 3240 (unknown) (no date) (unknown) [facility] (no value) [facility] Result panel 3241 (unknown) (no date) (unknown) [facility] (no value) [facility] Result panel 3242 (unknown) (no date) (unknown) [facility] (no value) [facility] Result panel 3243 (unknown) (no date) (unknown) [facility] (no value) [facility] Result panel 3244 (unknown) (no date) (unknown) [facility] (no value) [facility] Result panel 3245 (unknown) (no date) (unknown) [facility] (no value) [facility] Result panel 3246 (unknown) (no date) (unknown) [facility] (no value) [facility] Result panel 3247 (unknown) (no date) (unknown) [facility] (no value) [facility] Result panel 3248 (unknown) (no date) (unknown) [facility] (no value) [facility] Result panel 3249 (unknown) (no date) (unknown) [facility] (no value) [facility] Result panel 3250 (unknown) (no date) (unknown) [facility] (no value) [facility] Result panel 3251 (unknown) (no date) (unknown) [facility] (no value) [facility] Result panel 3252 (unknown) (no date) (unknown) [facility] (no value) [facility] Result panel 3253 (unknown) (no date) (unknown) [facility] (no value) [facility] Result panel 3254 (unknown) (no date) (unknown) [facility] (no value) [facility] Result panel 3255 (unknown) (no date) (unknown) [facility] (no value) [facility] Result panel 3256 (unknown) (no date) (unknown) [facility] (no value) [facility] Result panel 3257 (unknown) (no date) (unknown) [facility] (no value) [facility] Result panel 3258 (unknown) (no date) (unknown) [facility] (no value) [facility] Result panel 3259 (unknown) (no date) (unknown) [facility] (no value) [facility] Result panel 3260 (unknown) (no date) (unknown) [facility] (no value) [facility] Result panel 3261 (unknown) (no date) (unknown) [facility] (no value) [facility] Result panel 3262 (unknown) (no date) (unknown) [facility] (no value) [facility] Result panel 3263 (unknown) (no date) (unknown) [facility] (no value) [facility] Result panel 3264 (unknown) (no date) (unknown) [facility] (no value) [facility] Result panel 3265 (unknown) (no date) (unknown) [facility] (no value) [facility] Result panel 3266 (unknown) (no date) (unknown) [facility] (no value) [facility] Result panel 3267 (unknown) (no date) (unknown) [facility] (no value) [facility] Result panel 3268 (unknown) (no date) (unknown) [facility] (no value) [facility] Result panel 3269 (unknown) (no date) (unknown) [facility] (no value) [facility] Result panel 3270 (unknown) (no date) (unknown) [facility] (no value) [facility] Result panel 3271 (unknown) (no date) (unknown) [facility] (no value) [facility] Result panel 3272 (unknown) (no date) (unknown) [facility] (no value) [facility] Result panel 3273 (unknown) (no date) (unknown) [facility] (no value) [facility] Result panel 3274 (unknown) (no date) (unknown) [facility] (no value) [facility] Result panel 3275 (unknown) (no date) (unknown) [facility] (no value) [facility] Result panel 3276 (unknown) (no date) (unknown) [facility] (no value) [facility] Result panel 3277 (unknown) (no date) (unknown) [facility] (no value) [facility] [facility] Result panel 3278 (unknown) (no date) (unknown) [facility] value[facility] Result panel 3279 (unknown) (no date) (unknown) [facility] (no value) [facility] Result panel 3280 (unknown) (no date) (unknown) [facility] (no value) [facility] Result panel 3281 (unknown) (no date) (unknown) [facility] (no value) [facility] Result panel 3282 (unknown) (no date) (unknown) [facility] (no value) [facility] Result panel 3283 (unknown) (no date) (unknown) [facility] (no value) [facility] Result panel 3284 (unknown) (no date) (unknown) [facility] (no value) [facility] Result panel 3285 (unknown) (no date) (unknown) [facility] (no value) [facility] Result panel 3286 (unknown) (no date) (unknown) [facility] (no value) [facility] Result panel 3287 (unknown) (no date) (unknown) [facility] (no value) [facility] Result panel 3288 (unknown) (no date) (unknown) [facility] (no value) [facility] Result panel 3289 (unknown) (no date) (unknown) [facility] (no value) [facility] Result panel 3290 (unknown) (no date) (unknown) [facility]no value) [facility] Result panel 3291 (unknown) (no date) (unknown) [facility] (no value) [facility] Result panel 3292 (unknown) (no date) (unknown) [facility] (no value) [facility] Result panel 3293 (unknown) (no date) (unknown) [facility] (no value) [facility] Result panel 3294 (unknown) (no date) (unknown) [facility] (no value) [facility] Result panel 3295 (unknown) (no date) (unknown) [facility] (no value) [facility] Result panel 3296 (unknown) (no date) (unknown) [facility] (no value) [facility] Result panel 3297 (unknown) (no date) (unknown) [facility] (no value) [facility] Result panel 3298 (unknown) (no date) (unknown) [facility] (no value) [facility] Result panel 3299 (unknown) (no date) (unknown) [facility] (no value) [facility] Result panel 3300 (unknown) (no date) (unknown) [facility] (no value) [facility] Result panel 3301 (unknown) (no date) (unknown) [facility] (no value) [facility] Result panel 3302 (unknown) (no date) (unknown) [facility] (no value) [facility] Result panel 3303 (unknown) (no date) (unknown) [facility] (no value) [facility] Result panel 3304 (unknown) (no date) (unknown) [facility] (no value) [facility] Result panel 3305 (unknown) (no date) (unknown) [facility] (no value) [facility] Result panel 3306 (unknown) (no date) (unknown) [facility] (no value) [facility] Result panel 3307 (unknown) (no date) (unknown) [facility] (no value) [facility] Result panel 3308 (unknown) (no date) (unknown) [facility] (no value) [facility] Result panel 3309 (unknown) (no date) (unknown) [facility] (no value) [facility] Result panel 3310 (unknown) (no date) (unknown) [facility] (no value) [facility] Result panel 3311 (unknown) (no date) (unknown) [facility] (no value) [facility] Result panel 3312 (unknown) (no date) (unknown) [facility] (no value) [facility] Result panel 3313 (unknown) (no date) (unknown) [facility] (no value) [facility] Result panel 3314 (unknown) (no date) (unknown) [facility] (no value) [facility] Result panel 3315 (unknown) (no date) (unknown) [facility] (no value) [facility] Result panel 3316 (unknown) (no date) (unknown) [facility] (no value) [facility] Result panel 3317 (unknown) (no date) (unknown) [facility] (no value) [facility] Result panel 3318 (unknown) (no date) (unknown) [facility] (no value) [facility] Result panel 3319 (unknown) (no date) (unknown) [facility] (no value) [facility] Result panel 3320 (unknown) (no date) (unknown) [facility] (no value) [facility] Result panel 3321 (unknown) (no date) (unknown) [facility] (no value) [facility] Result panel 3322 (unknown) (no date) (unknown) [facility] (no value) [facility] Result panel 3323 (unknown) (no date) (unknown) [facility] (no value) [facility] Result panel 3324 (unknown) (no date) (unknown) [facility] (no value) [facility] Result panel 3325 (unknown) (no date) (unknown) [facility] (no value) [facility] Result panel 3326 (unknown) (no date) (unknown) [facility] (no value) [facility] Result panel 3327 (unknown) (no date) (unknown) [facility] (no value) [facility] Result panel 3328 (unknown) (no date) (unknown) [facility] (no value) [facility] Result panel 3329 (unknown) (no date) (unknown) [facility] (no value) [facility] Result panel 3330 (unknown) (no date) (unknown) [facility] (no value) [facility] Result panel 3331 (unknown) (no date) (unknown) [facility] (no value) [facility] Result panel 3332 (unknown) (no date) (unknown) [facility] (no value) [facility] Result panel 3333 (unknown) (no date) (unknown) [facility] (no value) [facility] Result panel 3334 (unknown) (no date) (unknown) [facility] (no value) [facility] Result panel 3335 (unknown) (no date) (unknown) [facility] (no value) [facility] Result panel 3336 (unknown) (no date) (unknown) [facility] (no value) [facility] Result panel 3337 (unknown) (no date) (unknown) [facility] (no value) [facility] Result panel 3338 (unknown) (no date) (unknown) [facility] (no value) [facility] Result panel 3339 (unknown) (no date) (unknown) [facility] (no value) [facility] Result panel 3340 (unknown) (no date) (unknown) [facility] (no value) [facility] Result panel 3341 (unknown) (no date) (unknown) [facility] (no value) [facility] Result panel 3342 (unknown) (no date) (unknown) [facility] (no value) [facility] Result panel 3343 (unknown) (no date) (unknown) [facility] (no value) [facility] Result panel 3344 (unknown) (no date) (unknown) [facility] (no value) [facility] Result panel 3345 (unknown) (no date) (unknown) [facility] (no value) [facility] Result panel 3346 (unknown) (no date) (unknown) [facility] (no value) [facility] Result panel 3347 (unknown) (no date) (unknown) [facility] (no value) [facility] Result panel 3348 (unknown) (no date) (unknown) [facility] (no value) [facility] Result panel 3349 (unknown) (no date) (unknown) [facility] (no value) [facility] Result panel 3350 (unknown) (no date) (unknown) [facility] (no value) [facility] Result panel 3351 (unknown) (no date) (unknown) [facility] (no value) [facility] Result panel 3352 (unknown) (no date) (unknown) [facility] (no value) [facility] Result panel 3353 (unknown) (no date) (unknown) [facility] (no value) [facility] Result panel 3354 (unknown) (no date) (unknown) [facility] (no value) [facility] Result panel 3355 (unknown) (no date) (unknown) [facility] (no value) [facility] Result panel 3356 (unknown) (no date) (unknown) [facility] (no value) [facility] Result panel 3357 (unknown) (no date) (unknown) [facility] (no value) [facility] Result panel 3358 (unknown) (no date) (unknown) [facility] (no value) [facility] Result panel 3359 (unknown) (no date) (unknown) [facility] (no value) [facility] Result panel 3360 (unknown) (no date) (unknown) [facility] (no value) [facility] Result panel 3361 (unknown) (no date) (unknown) [facility] (no value) [facility] Result panel 3362 (unknown) (no date) (unknown) [facility] (no value) [facility] Result panel 3363 (unknown) (no date) (unknown) [facility] (no value) [facility] Result panel 3364 (unknown) (no date) (unknown) [facility] (no value) [facility] Result panel 3365 (unknown) (no date) (unknown) [facility] (no value) [facility] Result panel 3366 (unknown) (no date) (unknown) [facility] (no value) [facility] Result panel 3367 (unknown) (no date) (unknown) [facility] (no value) [facility] Result panel 3368 (unknown) (no date) (unknown) [facility] (no value) [facility] Result panel 3369 (unknown) (no date) (unknown) [facility] (no value) [facility] Result panel 3370 (unknown) (no date) (unknown) [facility] (no value) [facility] Result panel 3371 (unknown) (no date) (unknown) [facility] (no value) [facility] Result panel 3372 (unknown) (no date) (unknown) [facility] (no value) [facility] Result panel 3373 (unknown) (no date) (unknown) [facility] (no value) [facility] Result panel 3374 (unknown) (no date) (unknown) [facility] (no value) [facility] Result panel 3375 (unknown) (no date) (unknown) [facility] (no value) [facility] Result panel 3376 (unknown) (no date) (unknown) [facility] (no value) [facility] Result panel 3377 (unknown) (no date) (unknown) [facility] (no value) [facility] Result panel 3378 (unknown) (no date) (unknown) [facility] (no value) [facility] Result panel 3379 (unknown) (no date) (unknown) [facility] (no value) [facility] Result panel 3380 (unknown) (no date) (unknown) [facility] (no value) [facility] Result panel 3381 (unknown) (no date) (unknown) [facility] (no value) [facility] Result panel 3382 (unknown) (no date) (unknown) [facility] (no value) [facility] Result panel 3383 (unknown) (no date) (unknown) [facility] (no value) [facility] Result panel 3384 (unknown) (no date) (unknown) [facility] (no value) [facility] Result panel 3385 (unknown) (no date) (unknown) [facility] (no value) [facility] Result panel 3386 (unknown) (no date) (unknown) [facility] (no value) [facility] Result panel 3387 (unknown) (no date) (unknown) [facility] (no value) [facility] Result panel 3388 (unknown) (no date) (unknown) [facility] (no value) [facility] Result panel 3389 (unknown) (no date) (unknown) [facility] (no value) [facility] Result panel 3390 (unknown) (no date) (unknown) [facility] (no value) [facility] Result panel 3391 (unknown) (no date) (unknown) [facility] (no value) [facility] Result panel 3392 (unknown) (no date) (unknown) [facility] (no value) [facility] Result panel 3393 (unknown) (no date) (unknown) [facility] (no value) [facility] Result panel 3394 (unknown) (no date) (unknown) [facility] (no value) [facility] Result panel 3395 (unknown) (no date) (unknown) [facility] (no value) [facility] Result panel 3396 (unknown) (no date) (unknown) [facility] (no value) [facility] Result panel 3397 (unknown) (no date) (unknown) [facility] (no value) [facility] Result panel 3398 (unknown) (no date) (unknown) [facility] (no value) [facility] Result panel 3399 (unknown) (no date) (unknown) [facility] (no value) [facility] Result panel 3400 (unknown) (no date) (unknown) [facility] (no value) [facility] Result panel 3401 (unknown) (no date) (unknown) [facility] (no value) [facility] Result panel 3402 (unknown) (no date) (unknown) [facility] (no value) [facility] Result panel 3403 (unknown) (no date) (unknown) [facility] (no value) [facility] Result panel 3404 (unknown) (no date) (unknown) [facility] (no value) [facility] Result panel 3405 (unknown) (no date) (unknown) [facility] (no value) [facility] Result panel 3406 (unknown) (no date) (unknown) [facility] (no value) [facility] Result panel 3407 (unknown) (no date) (unknown) [facility] (no value) [facility] Result panel 3408 (unknown) (no date) (unknown) [facility] (no value) [facility] Result panel 3409 (unknown) (no date) (unknown) [facility] (no value) [facility] Result panel 3410 (unknown) (no date) (unknown) [facility] (no value) [facility] Result panel 3411 (unknown) (no date) (unknown) [facility] (no value) [facility] Result panel 3412 (unknown) (no date) (unknown) [facility] (no value) [facility] Result panel 3413 (unknown) (no date) (unknown) [facility] (no value) [facility] Result panel 3414 (unknown) (no date) (unknown) [facility] (no value) [facility] Result panel 3415 (unknown) (no date) (unknown) [facility] (no value) [facility] Result panel 3416 (unknown) (no date) (unknown) [facility] (no value) [facility] Result panel 3417 (unknown) (no date) (unknown) [facility] (no value) [facility] Result panel 3418 (unknown) (no date) (unknown) [facility] (no value) [facility] Result panel 3419 (unknown) (no date) (unknown) [facility] (no value) [facility] Result panel 3420 (unknown) (no date) (unknown) [facility] (no value) [facility] Result panel 3421 (unknown) (no date) (unknown) [facility] (no value) [facility] Result panel 3422 (unknown) (no date) (unknown) [facility] (no value) [facility] Result panel 3423 (unknown) (no date) (unknown) [facility] (no value) [facility] Result panel 3424 (unknown) (no date) (unknown) [facility] (no value) [facility] Result panel 3425 (unknown) (no date) (unknown) [facility] (no value) [facility] Result panel 3426 (unknown) (no date) (unknown) [facility] (no value) [facility] Result panel 3427 (unknown) (no date) (unknown) [facility] (no value) [facility] Result panel 3428 (unknown) (no date) (unknown) [facility] (no value) [facility] Result panel 3429 (unknown) (no date) (unknown) [facility] (no value) [facility] Result panel 3430 (unknown) (no date) (unknown) [facility] (no value) [facility] Result panel 3431 (unknown) (no date) (unknown) [facility] (no value) [facility] Result panel 3432 (unknown) (no date) (unknown) [facility] (no value) [facility] Result panel 3433 (unknown) (no date) (unknown) [facility] (no value) [facility] Result panel 3434 (unknown) (no date) (unknown) [facility] (no value) [facility] Result panel 3435 (unknown) (no date) (unknown) [facility] (no value) [facility] Result panel 3436 (unknown) (no date) (unknown) [facility] (no value) [facility] Result panel 3437 (unknown) (no date) (unknown) [facility] (no value) [facility] Result panel 3438 (unknown) (no date) (unknown) [facility] (no value) [facility] Result panel 3439 (unknown) (no date) (unknown) [facility] (no value) [facility] Result panel 3440 (unknown) (no date) (unknown) [facility] (no value) [facility] Result panel 3441 (unknown) (no date) (unknown) [facility] (no value) [facility] Result panel 3442 (unknown) (no date) (unknown) [facility] (no value) [facility] Result panel 3443 (unknown) (no date) (unknown) [facility] (no value) [facility] Result panel 3444 (unknown) (no date) (unknown) [facility] (no value) [facility] Result panel 3445 (unknown) (no date) (unknown) [facility] (no value) [facility] unknown) [facility] Result panel 3446 (unknown) (no date) (unknown) [facility] value[facility] Result panel 3447 (unknown) (no date) (unknown) [facility] (no value) [facility]) [facility] Result panel 3448 (unknown) (no date) (unknown) [facility] (no value) [facility] Result panel 3449 (unknown) (no date) (unknown) [facility] (no value) [facility] Result panel 3450 (unknown) (no date) (unknown) [facility] (no value) [facility] Result panel 3451 (unknown) (no date) (unknown) [facility] (no value) [facility] Result panel 3452 (unknown) (no date) (unknown) [facility] (no value) [facility] Result panel 3453 (unknown) (no date) (unknown) [facility] (no value) [facility] Result panel 3454 (unknown) (no date) (unknown) [facility] (no value) [facility] Result panel 3455 (unknown) (no date) (unknown) [facility] (no value) [facility] Result panel 3456 (unknown) (no date) (unknown) [facility] (no value) [facility] Result panel 3457 (unknown) (no date) (unknown) [facility] (no value) [facility] Result panel 3458 (unknown) (no date) (unknown) [facility] (no value) [facility] Result panel 3459 (unknown) (no date) (unknown) [facility] (no value) [facility] Result panel 3460 (unknown) (no date) (unknown) [facility] (no value) [facility] Result panel 3461 (unknown) (no date) (unknown) [facility] (no value) [facility] Result panel 3462 (unknown) (no date) (unknown) [facility] (no value) [facility] Result panel 3463 (unknown) (no date) (unknown) [facility] (no value) [facility] Result panel 3464 (unknown) (no date) (unknown) [facility] (no value) [facility] Result panel 3465 (unknown) (no date) (unknown) [facility] (no value) [facility] Result panel 3466 (unknown) (no date) (unknown) [facility] (no value) [facility] Result panel 3467 (unknown) (no date) (unknown) [facility] (no value) [facility] Result panel 3468 (unknown) (no date) (unknown) [facility] (no value) [facility] Result panel 3469 (unknown) (no date) (unknown) [facility] (no value) [facility] Result panel 3470 (unknown) (no date) (unknown) [facility] (no value) [facility] Result panel 3471 (unknown) (no date) (unknown) [facility] (no value) [facility] Result panel 3472 (unknown) (no date) (unknown) [facility] (no value) [facility] Result panel 3473 (unknown) (no date) (unknown) [facility] (no value) [facility] Result panel 3474 (unknown) (no date) (unknown) [facility] (no value) [facility] Result panel 3475 (unknown) (no date) (unknown) [facility] (no value) [facility] Result panel 3476 (unknown) (no date) (unknown) [facility] (no value) [facility] Result panel 3477 (unknown) (no date) (unknown) [facility] (no value) [facility] Result panel 3478 (unknown) (no date) (unknown) [facility] (no value) [facility] Result panel 3479 (unknown) (no date) (unknown) [facility] (no value) [facility] Result panel 3480 (unknown) (no date) (unknown) [facility] (no value) [facility] Result panel 3481 (unknown) (no date) (unknown) [facility] (no value) [facility] Result panel 3482 (unknown) (no date) (unknown) [facility] (no value) [facility] Result panel 3483 (unknown) (no date) (unknown) [facility] (no value) [facility] Result panel 3484 (unknown) (no date) (unknown) [facility] (no value) [facility] Result panel 3485 (unknown) (no date) (unknown) [facility] (no value) [facility] Result panel 3486 (unknown) (no date) (unknown) [facility] (no value) [facility] Result panel 3487 (unknown) (no date) (unknown) [facility] (no value) [facility] Result panel 3488 (unknown) (no date) (unknown) [facility] (no value) [facility] Result panel 3489 (unknown) (no date) (unknown) [facility] (no value) [facility] Result panel 3490 (unknown) (no date) (unknown) [facility] (no value) [facility] Result panel 3491 (unknown) (no date) (unknown) [facility] (no value) [facility] Result panel 3492 (unknown) (no date) (unknown) [facility] (no value) [facility] Result panel 3493 (unknown) (no date) (unknown) [facility] (no value) [facility] Result panel 3494 (unknown) (no date) (unknown) Walk-In (no value) [facility] Result panel 3495 (unknown) (no date) (unknown) Walk-[facility] (no value) [facility] Result panel 3496 (unknown) (no date) (unknown) [facility] (no value) [facility] Result panel 3497 (unknown) (no date) (unknown) [facility]-In (no value) [facility] Result panel 3498 (unknown) (no date) (unknown) [facility]-In (no value) [facility] Result panel 3499 (unknown) (no date) (unknown) Walk-In (no value) [facility] Result panel 3500 (unknown) (no date) (unknown) [facility]-In (no value) [facility] Result panel 3501 (unknown) (no date) (unknown) Walk-In (no value) [facility] Result panel 3502 (unknown) (no date) (unknown) [facility] (no value) [facility] Result panel 3503 (unknown) (no date) (unknown) [facility] (no value) [facility] Result panel 3504 (unknown) (no date) (unknown) [facility] (no value) [facility] Result panel 3505 (unknown) (no date) (unknown) [facility] (no value) [facility] Result panel 3506 (unknown) (no date) (unknown) [facility] (no value) [facility] Result panel 3507 (unknown) (no date) (unknown) [facility] (no value) [facility] Result panel 3508 (unknown) (no date) (unknown) [facility] (no value) [facility] Result panel 3509 (unknown) (no date) (unknown) [facility]-In (no value) [facility] Result panel 3510 (unknown) (no date) (unknown) [facility] (no value) [facility] Result panel 3511 (unknown) (no date) (unknown) [facility] (no value) [facility] Result panel 3512 (unknown) (no date) (unknown) [facility] (no value) [facility] Result panel 3513 (unknown) (no date) (unknown) [facility] (no value) [facility] Result panel 3514 (unknown) (no date) (unknown) [facility] (no value) [facility] Result panel 3515 (unknown) (no date) (unknown) [facility] (no value) [facility] Result panel 3516 (unknown) (no date) (unknown) [facility] (no value) [facility] Result panel 3517 (unknown) (no date) (unknown) [facility] (no value) [facility] Result panel 3518 (unknown) (no date) (unknown) [facility]-In (no value) [facility] Result panel 3519 (unknown) (no date) (unknown) [facility]-In (no value) [facility] Result panel 3520 (unknown) (no date) (unknown) [facility] (no value) [facility] Result panel 3521 (unknown) (no date) (unknown) [facility] (no value) [facility] Result panel 3522 (unknown) (no date) (unknown) [facility]-In (no value) [facility] Result panel 3523 (unknown) (no date) (unknown) [facility] (no value) [facility] Result panel 3524 (unknown) (no date) (unknown) [facility] (no value) [facility] Result panel 3525 (unknown) (no date) (unknown) [facility] (no value) [facility] Result panel 3526 (unknown) (no date) (unknown) [facility] (no value) [facility] Result panel 3527 (unknown) (no date) (unknown) [facility] (no value) [facility] Result panel 3528 (unknown) (no date) (unknown) [facility] (no value) [facility] Result panel 3529 (unknown) (no date) (unknown) [facility] (no value) [facility] Result panel 3530 (unknown) (no date) (unknown) [facility]-In (no value) [facility] Result panel 3531 (unknown) (no date) (unknown) [facility] (no value) [facility] Result panel 3532 (unknown) (no date) (unknown) [facility] (no value) [facility] Result panel 3533 (unknown) (no date) (unknown) [facility] (no value) [facility] Result panel 3534 (unknown) (no date) (unknown) [facility] (no value) [facility] Result panel 3535 (unknown) (no date) (unknown) [facility] (no value) [facility] Result panel 3536 (unknown) (no date) (unknown) [facility] (no value) [facility] Result panel 3537 (unknown) (no date) (unknown) [facility] (no value) [facility] Result panel 3538 (unknown) (no date) (unknown) [facility] (no value) [facility] Result panel 3539 (unknown) (no date) (unknown) [facility] (no value) [facility] Result panel 3540 (unknown) (no date) (unknown) [facility] (no value) [facility] Result panel 3541 (unknown) (no date) (unknown) [facility] (no value) [facility] Result panel 3542 (unknown) (no date) (unknown) [facility] (no value) [facility] Result panel 3543 (unknown) (no date) (unknown) [facility] (no value) [facility] Result panel 3544 (unknown) (no date) (unknown) [facility] (no value) [facility] Result panel 3545 (unknown) (no date) (unknown) [facility] (no value) [facility] Result panel 3546 (unknown) (no date) (unknown) [facility] (no value) [facility] Result panel 3547 (unknown) (no date) (unknown) [facility] (no value) [facility] Result panel 3548 (unknown) (no date) (unknown) [facility] (no value) [facility] Result panel 3549 (unknown) (no date) (unknown) [facility] (no value) [facility] Result panel 3550 (unknown) (no date) (unknown) [facility] (no value) [facility] Result panel 3551 (unknown) (no date) (unknown) [facility] (no value) [facility] Result panel 3552 (unknown) (no date) (unknown) [facility] (no value) [facility] Result panel 3553 (unknown) (no date) (unknown) [facility] (no value) [facility] Result panel 3554 (unknown) (no date) (unknown) [facility] (no value) [facility] Result panel 3555 (unknown) (no date) (unknown) [facility] (no value) [facility] Result panel 3556 (unknown) (no date) (unknown) [facility] (no value) [facility] Result panel 3557 (unknown) (no date) (unknown) [facility] (no value) [facility] Result panel 3558 (unknown) (no date) (unknown) [facility] (no value) [facility] Result panel 3559 (unknown) (no date) (unknown) [facility] (no value) [facility] Result panel 3560 (unknown) (no date) (unknown) [facility] (no value) [facility] Result panel 3561 (unknown) (no date) (unknown) [facility] (no value) [facility] Result panel 3562 (unknown) (no date) (unknown) [facility] (no value) [facility] Result panel 3563 (unknown) (no date) (unknown) [facility] (no value) [facility] Result panel 3564 (unknown) (no date) (unknown) [facility] (no value) [facility] Result panel 3565 (unknown) (no date) (unknown) [facility] (no value) [facility] Result panel 3566 (unknown) (no date) (unknown) [facility] (no value) [facility] Result panel 3567 (unknown) (no date) (unknown) [facility]-In (no value) [facility] Result panel 3568 (unknown) (no date) (unknown) [facility] (no value) [facility] Result panel 3569 (unknown) (no date) (unknown) [facility] (no value) [facility] Result panel 3570 (unknown) (no date) (unknown) [facility] (no value) [facility] Result panel 3571 (unknown) (no date) (unknown) [facility] (no value) [facility] Result panel 3572 (unknown) (no date) (unknown) [facility] (no value) [facility] Result panel 3573 (unknown) (no date) (unknown) [facility] (no value) [facility] Result panel 3574 (unknown) (no date) (unknown) [facility] (no value) [facility] Result panel 3575 (unknown) (no date) (unknown) [facility] (no value) [facility] Result panel 3576 (unknown) (no date) (unknown) [facility] (no value) [facility] Result panel 3577 (unknown) (no date) (unknown) [facility] (no value) [facility] Result panel 3578 (unknown) (no date) (unknown) [facility] (no value) [facility] Result panel 3579 (unknown) (no date) (unknown) [facility] (no value) [facility] Result panel 3580 (unknown) (no date) (unknown) [facility]-In (no value) [facility] Result panel 3581 (unknown) (no date) (unknown) [facility] (no value) [facility] Result panel 3582 (unknown) (no date) (unknown) [facility] (no value) [facility] Result panel 3583 (unknown) (no date) (unknown) [facility]-In (no value) [facility] Result panel 3584 (unknown) (no date) (unknown) [facility] (no value) [facility] Result panel 3585 (unknown) (no date) (unknown) [facility] (no value) [facility] Result panel 3586 (unknown) (no date) (unknown) [facility]-In (no value) [facility] Result panel 3587 (unknown) (no date) (unknown) [facility] (no value) [facility] Result panel 3588 (unknown) (no date) (unknown) [facility]-In (no value) [facility] Result panel 3589 (unknown) (no date) (unknown) [facility] (no value) [facility] Result panel 3590 (unknown) (no date) (unknown) [facility] (no value) [facility] Result panel 3591 (unknown) (no date) (unknown) [facility] (no value) [facility] Result panel 3592 (unknown) (no date) (unknown) [facility] (no value) [facility] Result panel 3593 (unknown) (no date) (unknown) [facility] (no value) [facility] Result panel 3594 (unknown) (no date) (unknown) [facility]-In (no value) [facility] Result panel 3595 (unknown) (no date) (unknown) [facility] (no value) [facility] Result panel 3596 (unknown) (no date) (unknown) [facility] (no value) [facility] Result panel 3597 (unknown) (no date) (unknown) [facility]-In (no value) [facility] Result panel 3598 (unknown) (no date) (unknown) [facility] (no value) [facility] Result panel 3599 (unknown) (no date) (unknown) [facility]-In (no value) [facility] Result panel 3600 (unknown) (no date) (unknown) [facility] (no value) [facility] Result panel 3601 (unknown) (no date) (unknown) [facility]-In (no value) [facility] Result panel 3602 (unknown) (no date) (unknown) [facility]-In (no value) [facility] Result panel 3603 (unknown) (no date) (unknown) [facility] (no value) [facility] Result panel 3604 (unknown) (no date) (unknown) [facility]-In (no value) [facility] Result panel 3605 (unknown) (no date) (unknown) [facility]-In (no value) [facility] Result panel 3606 (unknown) (no date) (unknown) [facility]-In (no value) [facility] Result panel 3607 (unknown) (no date) (unknown) [facility]-In (no value) ([facility] Result panel 3608 (unknown) (no date) (unknown) [facility]In[facility]inic (no (units ( unknown) [facility]) unknown) [facility] Result panel 3609 (unknown) (no date) (unknown) [facility] (no value) [facility] Result panel 3610 (unknown) (no date) (unknown) Walk-In (no value) [facility] Result panel 3611 (unknown) (no date) (unknown) [facility]-In (no value) ([facility] Result panel 3612 (unknown) (no date) (unknown) [facility]-In (no value) [facility] Result panel 3613 (unknown) (no date) (unknown) Walk-In (no value) (units [facility] Result panel 3614 (unknown) (no date) (unknown) Walk-In (no value) (units [facility] Result panel 3615 (unknown) (no date) (unknown) [facility]-In (no value) [facility] Result panel 3616 (unknown) (no date) (unknown) Walk-In (no value) [facility]units [facility] Result panel 3617 (unknown) (no date) (unknown) [facility]-In (no value) [facility]units [facility] Result panel 3618 (unknown) (no date) (unknown) [facility]-In (no value) [facility]units [facility] Result panel 3619 (unknown) (no date) (unknown) [facility]-In (no value) [facility]units [facility] Result panel 3620 (unknown) (no date) (unknown) Walk-In (no value) [facility] Result panel 3621 (unknown) (no date) (unknown) [facility]-In (no value) [facility]units [facility] Result panel 3622 (unknown) (no date) (unknown) [facility]-In (no value) [facility]units [facility] Result panel 3623 (unknown) (no date) (unknown) [facility]-In (no value) [facility]units [facility] Result panel 3624 (unknown) (no date) (unknown) Walk-In (no value) [facility] Result panel 3625 (unknown) (no date) (unknown) [facility]-In (no value) [facility] Result panel 3626 (unknown) (no date) (unknown) [facility]-In (no value) [facility]units [facility] Result panel 3627 (unknown) (no date) (unknown) Walk-In (no value) [facility] Result panel 3628 (unknown) (no date) (unknown) [facility]-In (no value) [facility] Result panel 3629 (unknown) (no date) (unknown) Walk-In (no value) [facility] Result panel 3630 (unknown) (no date) (unknown) [facility]-In (no value) [facility] Result panel 3631 (unknown) (no date) (unknown) [facility] (no value) [facility] Result panel 3632 (unknown) (no date) (unknown) [facility]-In (no value) [facility] Result panel 3633 (unknown) (no date) (unknown) [facility]-In (no value) [facility] Result panel 3634 (unknown) (no date) (unknown) [facility]-In (no value) [facility] Result panel 3635 (unknown) (no date) (unknown) [facility]-In (no value) [facility] Result panel 3636 (unknown) (no date) (unknown) [facility]-In (no value) [facility] Result panel 3637 (unknown) (no date) (unknown) [facility] (no value) [facility] Result panel 3638 (unknown) (no date) (unknown) [facility]-In (no value) [facility] Result panel 3639 (unknown) (no date) (unknown) [facility] (no value) [facility] Result panel 3640 (unknown) (no date) (unknown) [facility] (no value) [facility] Result panel 3641 (unknown) (no date) (unknown) [facility]-In (no value) [facility] Result panel 3642 (unknown) (no date) (unknown) Walk-In (no value) [facility] Result panel 3643 (unknown) (no date) (unknown) [facility]-In (no value) [facility] Result panel 3644 (unknown) (no date) (unknown) Walk-In (no value) [facility] Result panel 3645 (unknown) (no date) (unknown) [facility]-In (no value) [facility] Result panel 3646 (unknown) (no date) (unknown) [facility]-In (no value) [facility] Result panel 3647 (unknown) (no date) (unknown) Walk-In (no value) [facility] Result panel 3648 (unknown) (no date) (unknown) [facility]-In (no value) [facility] Result panel 3649 (unknown) (no date) (unknown) [facility]-In (no value) [facility] Result panel 3650 (unknown) (no date) (unknown) [facility]-In (no value) [facility] Result panel 3651 (unknown) (no date) (unknown) [facility]-In (no value) [facility] Result panel 3652 (unknown) (no date) (unknown) [facility]-In (no value) [facility] Result panel 3653 (unknown) (no date) (unknown) [facility] (no value) [facility] Result panel 3654 (unknown) (no date) (unknown) [facility] (no value) [facility] Result panel 3655 (unknown) (no date) (unknown) [facility] (no value) [facility] Result panel 3656 (unknown) (no date) (unknown) [facility] (no value) [facility] Result panel 3657 (unknown) (no date) (unknown) [facility] (no value) [facility] Result panel 3658 (unknown) (no date) (unknown) [facility] (no value) [facility] Result panel 3659 (unknown) (no date) (unknown) [facility]-In (no value) [facility]units [facility] Result panel 3660 (unknown) (no date) (unknown) [facility]-In (no value) [facility] Result panel 3661 (unknown) (no date) (unknown) Walk-In (no value) [facility] Result panel 3662 (unknown) (no date) (unknown) [facility]-In (no value) [facility] Result panel 3663 (unknown) (no date) (unknown) [facility] (no value) [facility] Result panel 3664 (unknown) (no date) (unknown) [facility]-In (no value) [facility] Result panel 3665 (unknown) (no date) (unknown) [facility]-In (no value) [facility] Result panel 3666 (unknown) (no date) (unknown) [facility]-In (no value) [facility] Result panel 3667 (unknown) (no date) (unknown) [facility] (no value) [facility] Result panel 3668 (unknown) (no date) (unknown) [facility]-In (no value) [facility] Result panel 3669 (unknown) (no date) (unknown) [facility] (no value) ([facility] Result panel 3670 (unknown) (no date) (unknown) [facility]-In (no value) [facility] Result panel 3671 (unknown) (no date) (unknown) [facility] (no value) [facility] Result panel 3672 (unknown) (no date) (unknown) [facility] (no value) [facility] Result panel 3673 (unknown) (no date) (unknown) [facility] (no value) [facility] Result panel 3674 (unknown) (no date) (unknown) Walk-In (no value) (units [facility] Result panel 3675 (unknown) (no date) (unknown) [facility]-In (no value) (units [facility] Result panel 3676 (unknown) (no date) (unknown) [facility] (no value) (units [facility] Result panel 3677 (unknown) (no date) (unknown) [facility] (no value) (units [facility] Result panel 3678 (unknown) (no date) (unknown) [facility]-In (no value) (units [facility] Result panel 3679 (unknown) (no date) (unknown) [facility] (no value) [facility] Result panel 3680 (unknown) (no date) (unknown) [facility] (no value) (units [facility] Result panel 3681 (unknown) (no date) (unknown) [facility]-In (no value) (units [facility] Result panel 3682 (unknown) (no date) (unknown) [facility] (no value) (units [facility] Result panel 3683 (unknown) (no date) (unknown) [facility]-In (no value) (units [facility] Result panel 3684 (unknown) (no date) (unknown) [facility]-In (no value) (units [facility] Result panel 3685 (unknown) (no date) (unknown) [facility]-In (no value) (units [facility] Result panel 3686 (unknown) (no date) (unknown) [facility] (no value) (units [facility] Result panel 3687 (unknown) (no date) (unknown) Walk-In (no value) (units [facility] Result panel 3688 (unknown) (no date) (unknown) Walk-In (no value) (units [facility] Result panel 3689 (unknown) (no date) (unknown) [facility]-In (no value) [facility] Result panel 3690 (unknown) (no date) (unknown) [facility]-In (no value) (units [facility] Result panel 3691 (unknown) (no date) (unknown) [facility] (no value) [facility] Result panel 3692 (unknown) (no date) (unknown) [facility] (no value) [facility] Result panel 3693 (unknown) (no date) (unknown) [facility] (no value) [facility] Result panel 3694 (unknown) (no date) (unknown) [facility] (no value) [facility] Result panel 3695 (unknown) (no date) (unknown) [facility] (no value) [facility] Result panel 3696 (unknown) (no date) (unknown) [facility]-In (no value) [facility] Result panel 3697 (unknown) (no date) (unknown) [facility] (no value) [facility] Result panel 3698 (unknown) (no date) (unknown) [facility] (no value) [facility] Result panel 3699 (unknown) (no date) (unknown) [facility] (no value) [facility]units [facility] Result panel 3700 (unknown) (no date) (unknown) [facility] (no value) [facility]units [facility] Result panel 3701 (unknown) (no date) (unknown) [facility] (no value) [facility] Result panel 3702 (unknown) (no date) (unknown) [facility]-In (no value) [facility] Result panel 3703 (unknown) (no date) (unknown) [facility]-In (no value) [facility] Result panel 3704 (unknown) (no date) (unknown) [facility] (no value) [facility] Result panel 3705 (unknown) (no date) (unknown) [facility] (no value) [facility] Result panel 3706 (unknown) (no date) (unknown) [facility] (no value) [facility] Result panel 3707 (unknown) (no date) (unknown) [facility]-In (no value) [facility] Result panel 3708 (unknown) (no date) (unknown) [facility] (no value) [facility] Result panel 3709 (unknown) (no date) (unknown) [facility] (no value) [facility] Result panel 3710 (unknown) (no date) (unknown) [facility] (no value) [facility] Result panel 3711 (unknown) (no date) (unknown) [facility] (no value) [facility] Result panel 3712 (unknown) (no date) (unknown) [facility] (no value) [facility] Result panel 3713 (unknown) (no date) (unknown) [facility] (no value) [facility] Result panel 3714 (unknown) (no date) (unknown) [facility] (no value) [facility] Result panel 3715 (unknown) (no date) (unknown) [facility] (no value) [facility] Result panel 3716 (unknown) (no date) (unknown) [facility] (no value) [facility] Result panel 3717 (unknown) (no date) (unknown) [facility] (no value) [facility] Result panel 3718 (unknown) (no date) (unknown) [facility] (no value) [facility] Result panel 3719 (unknown) (no date) (unknown) [facility] (no value) [facility] Result panel 3720 (unknown) (no date) (unknown) [facility] (no value) [facility] Result panel 3721 (unknown) (no date) (unknown) [facility] (no value) [facility] Result panel 3722 (unknown) (no date) (unknown) [facility] (no value) [facility] Result panel 3723 (unknown) (no date) (unknown) [facility] (no value) [facility] Result panel 3724 (unknown) (no date) (unknown) [facility] (no value) [facility] Result panel 3725 (unknown) (no date) (unknown) [facility] (no value) [facility] Result panel 3726 (unknown) (no date) (unknown) [facility] (no value) [facility] Result panel 3727 (unknown) (no date) (unknown) [facility] (no value) [facility] Result panel 3728 (unknown) (no date) (unknown) [facility] (no value) [facility] Result panel 3729 (unknown) (no date) (unknown) [facility] (no value) [facility] Result panel 3730 (unknown) (no date) (unknown) [facility] (no value) [facility] Result panel 3731 (unknown) (no date) (unknown) [facility] (no value) [facility] Result panel 3732 (unknown) (no date) (unknown) [facility] (no value) [facility] Result panel 3733 (unknown) (no date) (unknown) [facility] (no value) [facility] Result panel 3734 (unknown) (no date) (unknown) [facility] (no value) [facility] Result panel 3735 (unknown) (no date) (unknown) [facility] (no value) [facility] Result panel 3736 (unknown) (no date) (unknown) [facility] (no value) [facility] Result panel 3737 (unknown) (no date) (unknown) [facility] (no value) [facility] Result panel 3738 (unknown) (no date) (unknown) [facility] (no value) [facility] Result panel 3739 (unknown) (no date) (unknown) [facility] (no value) [facility] Result panel 3740 (unknown) (no date) (unknown) [facility] (no value) [facility] Result panel 3741 (unknown) (no date) (unknown) [facility] (no value) [facility] Result panel 3742 (unknown) (no date) (unknown) [facility] (no value) ([facility] Result panel 3743 (unknown) (no date) (unknown) [facility] (no value) [facility] Result panel 3744 (unknown) (no date) (unknown) [facility] (no value) [facility] Result panel 3745 (unknown) (no date) (unknown) [facility] (no value) [facility] Result panel 3746 (unknown) (no date) (unknown) [facility] (no value) [facility] Result panel 3747 (unknown) (no date) (unknown) [facility] (no value) [facility] Result panel 3748 (unknown) (no date) (unknown) [facility] (no value) [facility] Result panel 3749 (unknown) (no date) (unknown) [facility] (no value) [facility] Result panel 3750 (unknown) (no date) (unknown) [facility] (no value) [facility] Result panel 3751 (unknown) (no date) (unknown) [facility] (no value) [facility] Result panel 3752 (unknown) (no date) (unknown) [facility] (no value) [facility] Result panel 3753 (unknown) (no date) (unknown) [facility] (no value) [facility] Result panel 3754 (unknown) (no date) (unknown) [facility] (no value) [facility] Result panel 3755 (unknown) (no date) (unknown) [facility] (no value) [facility] Result panel 3756 (unknown) (no date) (unknown) [facility] (no value) [facility] Result panel 3757 (unknown) (no date) (unknown) [facility] (no value) [facility] Result panel 3758 (unknown) (no date) (unknown) [facility] (no value) [facility] Result panel 3759 (unknown) (no date) (unknown) [facility] (no value) [facility] Result panel 3760 (unknown) (no date) (unknown) [facility] (no value) [facility] Result panel 3761 (unknown) (no date) (unknown) [facility]-In (no value) [facility] Result panel 3762 (unknown) (no date) (unknown) [facility] (no value) [facility] Result panel 3763 (unknown) (no date) (unknown) [facility] (no value) [facility] Result panel 3764 (unknown) (no date) (unknown) [facility] (no value) [facility] Result panel 3765 (unknown) (no date) (unknown) [facility] (no value) ([facility] Result panel 3766 (unknown) (no date) (unknown) [facility] (no value) ([facility] Result panel 3767 (unknown) (no date) (unknown) [facility]-In (no value) ([facility] Result panel 3768 (unknown) (no date) (unknown) [facility]-In (no value) ([facility] Result panel 3769 (unknown) (no date) (unknown) [facility]-In (no value) ([facility] Result panel 3770 (unknown) (no date) (unknown) [facility]-In (no value) ([facility] Result panel 3771 (unknown) (no date) (unknown) [facility] (no value) [facility] Result panel 3772 (unknown) (no date) (unknown) [facility] (no value) ([facility] Result panel 3773 (unknown) (no date) (unknown) [facility]-In (no value) ([facility] Result panel 3774 (unknown) (no date) (unknown) [facility]-In (no value) [facility] Result panel 3775 (unknown) (no date) (unknown) [facility] (no value) [facility] Result panel 3776 (unknown) (no date) (unknown) [facility] (no value) [facility] Result panel 3777 (unknown) (no date) (unknown) [facility] (no value) [facility] Result panel 3778 (unknown) (no date) (unknown) [facility] (no value) ([facility] Result panel 3779 (unknown) (no date) (unknown) Walk-In (no value) ([facility] Result panel 3780 (unknown) (no date) (unknown) Walk-In (no value) [facility] Result panel 3781 (unknown) (no date) (unknown) [facility] value[facility] Result panel 3782 (unknown) (no date) (unknown) [facility] (no value) [facility] Result panel 3783 (unknown) (no date) (unknown) [facility] (no value) [facility] Result panel 3784 (unknown) (no date) (unknown) [facility] (no value) [facility] Result panel 3785 (unknown) (no date) (unknown) [facility] (no value) [facility] Result panel 3786 (unknown) (no date) (unknown) [facility] (no value) [facility] Result panel 3787 (unknown) (no date) (unknown) [facility] (no value) [facility] Result panel 3788 (unknown) (no date) (unknown) [facility] (no value) [facility] Result panel 3789 (unknown) (no date) (unknown) [facility] (no value) [facility] Result panel 3790 (unknown) (no date) (unknown) [facility] (no value) [facility] Result panel 3791 (unknown) (no date) (unknown) [facility] (no value) [facility] Result panel 3792 (unknown) (no date) (unknown) [facility] (no value) [facility] Result panel 3793 (unknown) (no date) (unknown) [facility] (no value) [facility] Result panel 3794 (unknown) (no date) (unknown) [facility] (no value) [facility] Result panel 3795 (unknown) (no date) (unknown) [facility] (no value) [facility] Result panel 3796 (unknown) (no date) (unknown) [facility] (no value) [facility] Result panel 3797 (unknown) (no date) (unknown) [facility] (no value) [facility] Result panel 3798 (unknown) (no date) (unknown) [facility] (no value) [facility] Result panel 3799 (unknown) (no date) (unknown) [facility] (no value) [facility] Result panel 3800 (unknown) (no date) (unknown) [facility] (no value) [facility] Result panel 3801 (unknown) (no date) (unknown) [facility] (no value) [facility] Result panel 3802 (unknown) (no date) (unknown) [facility] (no value) [facility] Result panel 3803 (unknown) (no date) (unknown) [facility] (no value) [facility] Result panel 3804 (unknown) (no date) (unknown) [facility] (no value) [facility] Result panel 3805 (unknown) (no date) (unknown) [facility] (no value) [facility] Result panel 3806 (unknown) (no date) (unknown) [facility] (no value) [facility] Result panel 3807 (unknown) (no date) (unknown) [facility] (no value) [facility] Result panel 3808 (unknown) (no date) (unknown) [facility] (no value) [facility] Result panel 3809 (unknown) (no date) (unknown) [facility] (no value) [facility] Result panel 3810 (unknown) (no date) (unknown) [facility] (no value) [facility] Result panel 3811 (unknown) (no date) (unknown) [facility] (no value) [facility] Result panel 3812 (unknown) (no date) (unknown) [facility] (no value) [facility] Result panel 3813 (unknown) (no date) (unknown) [facility] (no value) [facility] Result panel 3814 (unknown) (no date) (unknown) [facility] (no value) [facility] Result panel 3815 (unknown) (no date) (unknown) [facility] (no value) [facility] Result panel 3816 (unknown) (no date) (unknown) [facility] (no value) [facility] Result panel 3817 (unknown) (no date) (unknown) [facility] (no value) [facility] Result panel 3818 (unknown) (no date) (unknown) [facility] (no value) [facility] Result panel 3819 (unknown) (no date) (unknown) [facility] (no value) [facility] Result panel 3820 (unknown) (no date) (unknown) [facility] (no value) [facility] Result panel 3821 (unknown) (no date) (unknown) [facility] (no value) [facility] Result panel 3822 (unknown) (no date) (unknown) [facility] (no value) [facility] Result panel 3823 (unknown) (no date) (unknown) [facility] (no value) [facility] Result panel 3824 (unknown) (no date) (unknown) [facility] (no value) [facility] Result panel 3825 (unknown) (no date) (unknown) [facility] (no value) [facility] Result panel 3826 (unknown) (no date) (unknown) [facility] (no value) [facility] Result panel 3827 (unknown) (no date) (unknown) [facility] (no value) [facility] Result panel 3828 (unknown) (no date) (unknown) [facility] (no value) [facility] Result panel 3829 (unknown) (no date) (unknown) [facility] (no value) [facility] Result panel 3830 (unknown) (no date) (unknown) [facility] (no value) [facility] Result panel 3831 (unknown) (no date) (unknown) [facility] (no value) [facility] Result panel 3832 (unknown) (no date) (unknown) [facility] (no value) [facility] Result panel 3833 (unknown) (no date) (unknown) [facility] (no value) [facility] Result panel 3834 (unknown) (no date) (unknown) [facility] (no value) [facility] Result panel 3835 (unknown) (no date) (unknown) [facility] (no value) [facility] Result panel 3836 (unknown) (no date) (unknown) [facility] (no value) [facility] Result panel 3837 (unknown) (no date) (unknown) [facility] (no value) [facility] Result panel 3838 (unknown) (no date) (unknown) [facility] (no value) [facility] Result panel 3839 (unknown) (no date) (unknown) [facility] (no value) [facility] Result panel 3840 (unknown) (no date) (unknown) [facility] (no value) [facility] Result panel 3841 (unknown) (no date) (unknown) [facility] (no value) [facility] Result panel 3842 (unknown) (no date) (unknown) [facility] (no value) [facility] Result panel 3843 (unknown) (no date) (unknown) [facility] (no value) [facility] Result panel 3844 (unknown) (no date) (unknown) [facility] (no value) [facility] Result panel 3845 (unknown) (no date) (unknown) [facility] (no value) [facility] Result panel 3846 (unknown) (no date) (unknown) [facility] (no value) [facility] Result panel 3847 (unknown) (no date) (unknown) [facility] (no value) [facility] Result panel 3848 (unknown) (no date) (unknown) [facility] (no value) [facility] Result panel 3849 (unknown) (no date) (unknown) [facility] (no value) [facility] Result panel 3850 (unknown) (no date) (unknown) [facility] (no value) [facility] Result panel 3851 (unknown) (no date) (unknown) [facility] (no value) [facility] Result panel 3852 (unknown) (no date) (unknown) [facility] (no value) [facility] Result panel 3853 (unknown) (no date) (unknown) [facility] (no value) [facility] Result panel 3854 (unknown) (no date) (unknown) [facility] (no value) [facility] Result panel 3855 (unknown) (no date) (unknown) [facility] (no value) [facility] Result panel 3856 (unknown) (no date) (unknown) [facility] (no value) [facility] Result panel 3857 (unknown) (no date) (unknown) [facility] (no value) [facility] Result panel 3858 (unknown) (no date) (unknown) [facility] (no value) [facility] Result panel 3859 (unknown) (no date) (unknown) [facility] (no value) [facility] Result panel 3860 (unknown) (no date) (unknown) [facility] (no value) [facility] Result panel 3861 (unknown) (no date) (unknown) [facility] (no value) [facility] Result panel 3862 (unknown) (no date) (unknown) [facility] (no value) [facility] Result panel 3863 (unknown) (no date) (unknown) [facility] (no value) [facility] Result panel 3864 (unknown) (no date) (unknown) [facility] (no value) [facility] Result panel 3865 (unknown) (no date) (unknown) [facility] (no value) [facility] Result panel 3866 (unknown) (no date) (unknown) [facility] (no value) [facility] Result panel 3867 (unknown) (no date) (unknown) [facility] (no value) [facility] Result panel 3868 (unknown) (no date) (unknown) [facility] (no value) [facility] Result panel 3869 (unknown) (no date) (unknown) [facility] (no value) [facility] Result panel 3870 (unknown) (no date) (unknown) [facility] (no value) [facility] Result panel 3871 (unknown) (no date) (unknown) [facility] (no value) [facility] Result panel 3872 (unknown) (no date) (unknown) [facility] (no value) [facility] Result panel 3873 (unknown) (no date) (unknown) [facility] (no value) [facility] Result panel 3874 (unknown) (no date) (unknown) [facility] (no value) [facility] Result panel 3875 (unknown) (no date) (unknown) [facility] (no value) [facility] Result panel 3876 (unknown) (no date) (unknown) [facility] (no value) [facility] Result panel 3877 (unknown) (no date) (unknown) [facility] (no value) [facility] Result panel 3878 (unknown) (no date) (unknown) [facility] (no value) [facility] Result panel 3879 (unknown) (no date) (unknown) [facility] (no value) [facility] Result panel 3880 (unknown) (no date) (unknown) [facility] (no value) [facility] Result panel 3881 (unknown) (no date) (unknown) [facility] (no value) [facility] Result panel 3882 (unknown) (no date) (unknown) [facility] (no value) [facility] Result panel 3883 (unknown) (no date) (unknown) [facility] (no value) [facility] Result panel 3884 (unknown) (no date) (unknown) [facility] (no value) [facility] Result panel 3885 (unknown) (no date) (unknown) [facility] (no value) [facility] Result panel 3886 (unknown) (no date) (unknown) [facility] (no value) [facility] Result panel 3887 (unknown) (no date) (unknown) [facility] (no value) [facility] Result panel 3888 (unknown) (no date) (unknown) [facility] (no value) [facility] Result panel 3889 (unknown) (no date) (unknown) [facility] (no value) [facility] Result panel 3890 (unknown) (no date) (unknown) [facility] (no value) [facility] Result panel 3891 (unknown) (no date) (unknown) [facility] (no value) [facility] Result panel 3892 (unknown) (no date) (unknown) [facility] (no value) [facility] Result panel 3893 (unknown) (no date) (unknown) [facility] (no value) [facility] Result panel 3894 (unknown) (no date) (unknown) [facility] (no value) [facility] Result panel 3895 (unknown) (no date) (unknown) [facility] (no value) [facility] Result panel 3896 (unknown) (no date) (unknown) [facility] (no value) [facility] Result panel 3897 (unknown) (no date) (unknown) [facility] (no value) [facility] Result panel 3898 (unknown) (no date) (unknown) [facility] (no value) [facility] Result panel 3899 (unknown) (no date) (unknown) [facility] (no value) [facility] Result panel 3900 (unknown) (no date) (unknown) [facility] (no value) [facility] Result panel 3901 (unknown) (no date) (unknown) [facility] (no value) [facility] Result panel 3902 (unknown) (no date) (unknown) [facility] (no value) [facility] Result panel 3903 (unknown) (no date) (unknown) [facility] (no value) [facility] Result panel 3904 (unknown) (no date) (unknown) [facility] (no value) [facility] Result panel 3905 (unknown) (no date) (unknown) [facility] (no value) [facility] Result panel 3906 (unknown) (no date) (unknown) [facility] (no value) [facility] Result panel 3907 (unknown) (no date) (unknown) [facility] (no value) [facility] Result panel 3908 (unknown) (no date) (unknown) [facility] (no value) [facility] Result panel 3909 (unknown) (no date) (unknown) [facility] (no value) [facility] Result panel 3910 (unknown) (no date) (unknown) [facility] (no value) [facility] Result panel 3911 (unknown) (no date) (unknown) [facility] (no value) [facility] Result panel 3912 (unknown) (no date) (unknown) [facility] (no value) [facility] Result panel 3913 (unknown) (no date) (unknown) [facility] (no value) [facility] Result panel 3914 (unknown) (no date) (unknown) [facility] (no value) [facility] Result panel 3915 (unknown) (no date) (unknown) [facility] (no value) [facility] Result panel 3916 (unknown) (no date) (unknown) [facility] (no value) [facility] Result panel 3917 (unknown) (no date) (unknown) [facility] (no value) [facility] Result panel 3918 (unknown) (no date) (unknown) [facility] (no value) [facility] Result panel 3919 (unknown) (no date) (unknown) [facility] (no value) [facility] Result panel 3920 (unknown) (no date) (unknown) [facility] (no value) [facility] Result panel 3921 (unknown) (no date) (unknown) [facility] (no value) [facility] Result panel 3922 (unknown) (no date) (unknown) [facility] (no value) [facility] Result panel 3923 (unknown) (no date) (unknown) [facility] (no value) [facility] Result panel 3924 (unknown) (no date) (unknown) [facility] (no value) [facility] Result panel 3925 (unknown) (no date) (unknown) [facility] (no value) [facility] Result panel 3926 (unknown) (no date) (unknown) [facility] (no value) [facility] Result panel 3927 (unknown) (no date) (unknown) [facility] (no value) [facility] Result panel 3928 (unknown) (no date) (unknown) [facility] (no value) [facility] Result panel 3929 (unknown) (no date) (unknown) [facility] (no value) [facility] Result panel 3930 (unknown) (no date) (unknown) [facility] (no value) [facility] Result panel 3931 (unknown) (no date) (unknown) [facility] (no value) [facility] Result panel 3932 (unknown) (no date) (unknown) [facility] (no value) [facility] Result panel 3933 (unknown) (no date) (unknown) [facility] (no value) [facility] Result panel 3934 (unknown) (no date) (unknown) [facility] (no value) [facility] Result panel 3935 (unknown) (no date) (unknown) [facility] (no value) [facility] Result panel 3936 (unknown) (no date) (unknown) [facility] (no value) [facility] Result panel 3937 (unknown) (no date) (unknown) [facility] (no value) [facility] Result panel 3938 (unknown) (no date) (unknown) [facility] (no value) [facility] Result panel 3939 (unknown) (no date) (unknown) [facility] (no value) [facility] Result panel 3940 (unknown) (no date) (unknown) [facility] (no value) [facility] Result panel 3941 (unknown) (no date) (unknown) [facility] (no value) [facility] Result panel 3942 (unknown) (no date) (unknown) [facility] (no value) [facility] Result panel 3943 (unknown) (no date) (unknown) [facility] (no value) [facility] Result panel 3944 (unknown) (no date) (unknown) [facility] (no value) [facility] Result panel 3945 (unknown) (no date) (unknown) [facility] (no value) [facility] Result panel 3946 (unknown) (no date) (unknown) [facility] (no value) [facility] Result panel 3947 (unknown) (no date) (unknown) [facility] (no value) [facility] Result panel 3948 (unknown) (no date) (unknown) [facility] (no value) [facility] Result panel 3949 (unknown) (no date) (unknown) [facility] (no value) [facility] Result panel 3950 (unknown) (no date) (unknown) [facility] (no value) [facility] Result panel 3951 (unknown) (no date) (unknown) [facility] (no value) [facility] Result panel 3952 (unknown) (no date) (unknown) [facility] (no value) [facility] Result panel 3953 (unknown) (no date) (unknown) [facility] (no value) [facility] Result panel 3954 (unknown) (no date) (unknown) [facility] (no value) [facility] Result panel 3955 (unknown) (no date) (unknown) [facility] (no value) [facility] Result panel 3956 (unknown) (no date) (unknown) [facility] (no value) [facility] Result panel 3957 (unknown) (no date) (unknown) [facility] (no value) [facility] Result panel 3958 (unknown) (no date) (unknown) [facility] (no value) [facility] Result panel 3959 (unknown) (no date) (unknown) [facility] (no value) [facility] Result panel 3960 (unknown) (no date) (unknown) [facility] (no value) [facility] Result panel 3961 (unknown) (no date) (unknown) [facility] (no value) [facility] Result panel 3962 (unknown) (no date) (unknown) [facility] (no value) [facility] Result panel 3963 (unknown) (no date) (unknown) [facility] (no value) [facility] Result panel 3964 (unknown) (no date) (unknown) [facility] (no value) [facility] Result panel 3965 (unknown) (no date) (unknown) [facility] (no value) [facility] Result panel 3966 (unknown) (no date) (unknown) [facility] (no value) [facility] Result panel 3967 (unknown) (no date) (unknown) [facility] (no value) [facility] Result panel 3968 (unknown) (no date) (unknown) [facility] (no value) [facility] Result panel 3969 (unknown) (no date) (unknown) [facility] (no value) [facility] Result panel 3970 (unknown) (no date) (unknown) [facility] (no value) [facility] Result panel 3971 (unknown) (no date) (unknown) [facility] (no value) [facility] Result panel 3972 (unknown) (no date) (unknown) [facility] (no value) [facility] Result panel 3973 (unknown) (no date) (unknown) [facility] (no value) [facility] Result panel 3974 (unknown) (no date) (unknown) [facility] (no value) [facility] Result panel 3975 (unknown) (no date) (unknown) [facility] (no value) [facility] Result panel 3976 (unknown) (no date) (unknown) [facility] (no value) [facility] Result panel 3977 (unknown) (no date) (unknown) [facility] (no value) [facility] Result panel 3978 (unknown) (no date) (unknown) [facility] (no value) [facility] Result panel 3979 (unknown) (no date) (unknown) [facility] (no value) [facility] Result panel 3980 (unknown) (no date) (unknown) [facility] (no value) [facility] Result panel 3981 (unknown) (no date) (unknown) [facility] (no value) [facility] Result panel 3982 (unknown) (no date) (unknown) [facility] (no value) [facility] Result panel 3983 (unknown) (no date) (unknown) [facility] (no value) [facility] Result panel 3984 (unknown) (no date) (unknown) [facility] (no value) [facility] Result panel 3985 (unknown) (no date) (unknown) [facility] (no value) [facility] Result panel 3986 (unknown) (no date) (unknown) [facility] (no value) [facility] Result panel 3987 (unknown) (no date) (unknown) [facility] (no value) [facility] Result panel 3988 (unknown) (no date) (unknown) [facility] (no value) [facility] Result panel 3989 (unknown) (no date) (unknown) [facility] (no value) [facility] Result panel 3990 (unknown) (no date) (unknown) [facility] (no value) [facility] Result panel 3991 (unknown) (no date) (unknown) [facility] (no value) [facility] Result panel 3992 (unknown) (no date) (unknown) [facility] (no value) [facility] Result panel 3993 (unknown) (no date) (unknown) [facility] (no value) [facility] Result panel 3994 (unknown) (no date) (unknown) [facility] (no value) [facility] Result panel 3995 (unknown) (no date) (unknown) [facility] (no value) [facility] Result panel 3996 (unknown) (no date) (unknown) [facility] (no value) [facility] Result panel 3997 (unknown) (no date) (unknown) [facility] (no value) [facility] Result panel 3998 (unknown) (no date) (unknown) [facility] (no value) [facility] Result panel 3999 (unknown) (no date) (unknown) [facility] (no value) [facility] Result panel 4000 (unknown) (no date) (unknown) [facility] (no value) [facility] Result panel 4001 (unknown) (no date) (unknown) [facility] (no value) [facility] Result panel 4002 (unknown) (no date) (unknown) [facility] (no value) [facility] Result panel 4003 (unknown) (no date) (unknown) [facility] (no value) [facility] Result panel 4004 (unknown) (no date) (unknown) [facility] (no value) [facility] Result panel 4005 (unknown) (no date) (unknown) [facility] (no value) [facility] Result panel 4006 (unknown) (no date) (unknown) [facility] (no value) [facility] Result panel 4007 (unknown) (no date) (unknown) [facility] (no value) [facility] Result panel 4008 (unknown) (no date) (unknown) [facility] (no value) [facility] Result panel 4009 (unknown) (no date) (unknown) [facility] (no value) [facility] Result panel 4010 (unknown) (no date) (unknown) [facility] (no value) [facility] Result panel 4011 (unknown) (no date) (unknown) [facility] (no value) [facility] Result panel 4012 (unknown) (no date) (unknown) [facility] (no value) [facility] Result panel 4013 (unknown) (no date) (unknown) [facility] (no value) [facility] Result panel 4014 (unknown) (no date) (unknown) [facility] (no value) [facility] Result panel 4015 (unknown) (no date) (unknown) [facility] (no value) [facility] Result panel 4016 (unknown) (no date) (unknown) [facility] (no value) [facility] Result panel 4017 (unknown) (no date) (unknown) [facility] (no value) [facility] Result panel 4018 (unknown) (no date) (unknown) [facility] (no value) [facility] Result panel 4019 (unknown) (no date) (unknown) [facility] (no value) [facility] Result panel 4020 (unknown) (no date) (unknown) [facility] (no value) [facility] Result panel 4021 (unknown) (no date) (unknown) [facility] (no value) [facility] Result panel 4022 (unknown) (no date) (unknown) [facility] (no value) [facility] Result panel 4023 (unknown) (no date) (unknown) [facility] (no value) [facility] Result panel 4024 (unknown) (no date) (unknown) [facility] (no value) [facility] Result panel 4025 (unknown) (no date) (unknown) [facility] (no value) [facility] Result panel 4026 (unknown) (no date) (unknown) [facility] (no value) [facility] Result panel 4027 (unknown) (no date) (unknown) [facility] (no value) [facility] Result panel 4028 (unknown) (no date) (unknown) [facility] (no value) [facility] Result panel 4029 (unknown) (no date) (unknown) [facility] (no value) [facility] Result panel 4030 (unknown) (no date) (unknown) [facility] (no value) [facility] Result panel 4031 (unknown) (no date) (unknown) [facility] (no value) [facility] Result panel 4032 (unknown) (no date) (unknown) [facility] (no value) [facility] Result panel 4033 (unknown) (no date) (unknown) [facility] (no value) [facility] Result panel 4034 (unknown) (no date) (unknown) [facility] (no value) [facility] Result panel 4035 (unknown) (no date) (unknown) [facility] (no value) [facility] Result panel 4036 (unknown) (no date) (unknown) [facility] (no value) [facility] Result panel 4037 (unknown) (no date) (unknown) [facility] (no value) [facility] Result panel 4038 (unknown) (no date) (unknown) [facility] (no value) [facility] Result panel 4039 (unknown) (no date) (unknown) [facility] (no value) [facility] Result panel 4040 (unknown) (no date) (unknown) [facility] (no value) [facility] Result panel 4041 (unknown) (no date) (unknown) [facility] (no value) [facility] Result panel 4042 (unknown) (no date) (unknown) [facility] (no value) [facility] Result panel 4043 (unknown) (no date) (unknown) [facility] (no value) [facility] Result panel 4044 (unknown) (no date) (unknown) [facility] (no value) [facility] Result panel 4045 (unknown) (no date) (unknown) [facility] (no value) [facility] Result panel 4046 (unknown) (no date) (unknown) [facility] (no value) [facility] Result panel 4047 (unknown) (no date) (unknown) [facility] (no value) [facility] Result panel 4048 (unknown) (no date) (unknown) [facility] (no value) [facility] Result panel 4049 (unknown) (no date) (unknown) [facility] (no value) [facility] Result panel 4050 (unknown) (no date) (unknown) [facility] (no value) [facility] Result panel 4051 (unknown) (no date) (unknown) [facility] (no value) [facility] Result panel 4052 (unknown) (no date) (unknown) [facility] (no value) [facility] Result panel 4053 (unknown) (no date) (unknown) [facility] (no value) [facility] Result panel 4054 (unknown) (no date) (unknown) [facility] (no value) [facility] Result panel 4055 (unknown) (no date) (unknown) [facility] (no value) [facility] Result panel 4056 (unknown) (no date) (unknown) [facility] (no value) [facility] Result panel 4057 (unknown) (no date) (unknown) [facility] (no value) [facility] Result panel 4058 (unknown) (no date) (unknown) [facility] (no value) [facility] Result panel 4059 (unknown) (no date) (unknown) [facility] (no value) [facility] Result panel 4060 (unknown) (no date) (unknown) [facility] (no value) [facility] Result panel 4061 (unknown) (no date) (unknown) [facility] (no value) [facility] Result panel 4062 (unknown) (no date) (unknown) [facility] (no value) [facility] Result panel 4063 (unknown) (no date) (unknown) [facility] (no value) [facility] Result panel 4064 (unknown) (no date) (unknown) [facility] (no value) [facility] Result panel 4065 (unknown) (no date) (unknown) [facility] (no value) [facility] Result panel 4066 (unknown) (no date) (unknown) [facility] (no value) [facility] Result panel 4067 (unknown) (no date) (unknown) [facility] (no value) [facility] Result panel 4068 (unknown) (no date) (unknown) [facility] (no value) [facility] Result panel 4069 (unknown) (no date) (unknown) [facility] (no value) [facility] Result panel 4070 (unknown) (no date) (unknown) [facility] (no value) [facility] Result panel 4071 (unknown) (no date) (unknown) [facility] (no value) [facility] Result panel 4072 (unknown) (no date) (unknown) [facility] (no value) [facility] Result panel 4073 (unknown) (no date) (unknown) [facility] (no value) [facility] Result panel 4074 (unknown) (no date) (unknown) [facility] (no value) [facility] Result panel 4075 (unknown) (no date) (unknown) [facility] (no value) [facility] Result panel 4076 (unknown) (no date) (unknown) [facility] (no value) [facility] Result panel 4077 (unknown) (no date) (unknown) [facility] (no value) [facility] Result panel 4078 (unknown) (no date) (unknown) [facility] (no value) [facility] Result panel 4079 (unknown) (no date) (unknown) [facility] (no value) [facility] Result panel 4080 (unknown) (no date) (unknown) [facility] (no value) [facility] Result panel 4081 (unknown) (no date) (unknown) [facility] (no value) [facility] Result panel 4082 (unknown) (no date) (unknown) [facility] (no value) [facility] Result panel 4083 (unknown) (no date) (unknown) [facility] (no value) [facility] Result panel 4084 (unknown) (no date) (unknown) [facility] (no value) [facility] Result panel 4085 (unknown) (no date) (unknown) [facility] (no value) [facility] Result panel 4086 (unknown) (no date) (unknown) [facility] (no value) [facility] Result panel 4087 (unknown) (no date) (unknown) [facility] (no value) [facility] Result panel 4088 (unknown) (no date) (unknown) [facility] (no value) [facility] Result panel 4089 (unknown) (no date) (unknown) [facility] (no value) [facility] Result panel 4090 (unknown) (no date) (unknown) [facility] (no value) [facility] Result panel 4091 (unknown) (no date) (unknown) [facility] (no value) [facility] Result panel 4092 (unknown) (no date) (unknown) [facility] (no value) [facility] Result panel 4093 (unknown) (no date) (unknown) [facility] (no value) [facility] Result panel 4094 (unknown) (no date) (unknown) [facility] (no value) [facility] Result panel 4095 (unknown) (no date) (unknown) [facility] (no value) [facility] Result panel 4096 (unknown) (no date) (unknown) [facility] (no value) [facility] Result panel 4097 (unknown) (no date) (unknown) [facility] (no value) [facility] Result panel 4098 (unknown) (no date) (unknown) [facility] (no value) [facility] Result panel 4099 (unknown) (no date) (unknown) [facility] (no value) [facility] Result panel 4100 (unknown) (no date) (unknown) [facility] (no value) [facility] Result panel 4101 (unknown) (no date) (unknown) [facility] (no value) [facility] Result panel 4102 (unknown) (no date) (unknown) [facility] (no value) [facility] Result panel 4103 (unknown) (no date) (unknown) [facility] (no value) [facility] Result panel 4104 (unknown) (no date) (unknown) [facility] (no value) [facility] Result panel 4105 (unknown) (no date) (unknown) [facility] (no value) [facility] Result panel 4106 (unknown) (no date) (unknown) [facility] (no value) [facility] Result panel 4107 (unknown) (no date) (unknown) [facility] (no value) [facility] Result panel 4108 (unknown) (no date) (unknown) [facility] (no value) [facility] Result panel 4109 (unknown) (no date) (unknown) [facility] (no value) [facility] Result panel 4110 (unknown) (no date) (unknown) [facility] (no value) [facility] Result panel 4111 (unknown) (no date) (unknown) [facility] (no value) [facility] Result panel 4112 (unknown) (no date) (unknown) [facility] (no value) [facility] Result panel 4113 (unknown) (no date) (unknown) [facility] (no value) [facility] Result panel 4114 (unknown) (no date) (unknown) [facility] (no value) [facility] Result panel 4115 (unknown) (no date) (unknown) [facility] (no value) [facility] Result panel 4116 (unknown) (no date) (unknown) [facility] (no value) [facility] [facility] Result panel 4117 (unknown) (no date) (unknown) [facility] (no value[facility] Result panel 4118 (unknown) (no date) (unknown) [facility] (no value) [facility] Result panel 4119 (unknown) (no date) (unknown) [facility] (no value) [facility] Result panel 4120 (unknown) (no date) (unknown) [facility] (no value) [facility] Result panel 4121 (unknown) (no date) (unknown) [facility] (no value) [facility] Result panel 4122 (unknown) (no date) (unknown) [facility] (no value) [facility] Result panel 4123 (unknown) (no date) (unknown) [facility] (no value) [facility] Result panel 4124 (unknown) (no date) (unknown) [facility] (no value) [facility] Result panel 4125 (unknown) (no date) (unknown) [facility] (no value) [facility] Result panel 4126 (unknown) (no date) (unknown) [facility] (no value) [facility] Result panel 4127 (unknown) (no date) (unknown) [facility] (no value) [facility] Result panel 4128 (unknown) (no date) (unknown) [facility] (no value) [facility] Result panel 4129 (unknown) (no date) (unknown) [facility] (no value) [facility] Result panel 4130 (unknown) (no date) (unknown) [facility] (no value) [facility] Result panel 4131 (unknown) (no date) (unknown) [facility] (no value) [facility] Result panel 4132 (unknown) (no date) (unknown) [facility] (no value) [facility] Result panel 4133 (unknown) (no date) (unknown) [facility] (no value) [facility] Result panel 4134 (unknown) (no date) (unknown) [facility] (no value) [facility] Result panel 4135 (unknown) (no date) (unknown) [facility] (no value) [facility] Result panel 4136 (unknown) (no date) (unknown) [facility] (no value) [facility] Result panel 4137 (unknown) (no date) (unknown) [facility] (no value) [facility] Result panel 4138 (unknown) (no date) (unknown) [facility] (no value) [facility] Result panel 4139 (unknown) (no date) (unknown) [facility] (no value) [facility] Result panel 4140 (unknown) (no date) (unknown) [facility] (no value) [facility] Result panel 4141 (unknown) (no date) (unknown) [facility] (no value) [facility] Result panel 4142 (unknown) (no date) (unknown) [facility] (no value) [facility] Result panel 4143 (unknown) (no date) (unknown) [facility] (no value) [facility] Result panel 4144 (unknown) (no date) (unknown) [facility] (no value) [facility] Result panel 4145 (unknown) (no date) (unknown) [facility] (no value) [facility] Result panel 4146 (unknown) (no date) (unknown) [facility] (no value) [facility] Result panel 4147 (unknown) (no date) (unknown) [facility] (no value) [facility] Result panel 4148 (unknown) (no date) (unknown) [facility] (no value) [facility] Result panel 4149 (unknown) (no date) (unknown) [facility] (no value) [facility] Result panel 4150 (unknown) (no date) (unknown) [facility] (no value) [facility] Result panel 4151 (unknown) (no date) (unknown) [facility] (no value) [facility] Result panel 4152 (unknown) (no date) (unknown) [facility] (no value) [facility] Result panel 4153 (unknown) (no date) (unknown) [facility] (no value) [facility] Result panel 4154 (unknown) (no date) (unknown) [facility] (no value) [facility] Result panel 4155 (unknown) (no date) (unknown) [facility] (no value) [facility] Result panel 4156 (unknown) (no date) (unknown) [facility] (no value) [facility] Result panel 4157 (unknown) (no date) (unknown) [facility] (no value) [facility] Result panel 4158 (unknown) (no date) (unknown) [facility] (no value) [facility] Result panel 4159 (unknown) (no date) (unknown) [facility] (no value) [facility] Result panel 4160 (unknown) (no date) (unknown) [facility] (no value) [facility] Result panel 4161 (unknown) (no date) (unknown) [facility] (no value) [facility] Result panel 4162 (unknown) (no date) (unknown) [facility] (no value) [facility] Result panel 4163 (unknown) (no date) (unknown) [facility] (no value) [facility] Result panel 4164 (unknown) (no date) (unknown) [facility] (no value) [facility] Result panel 4165 (unknown) (no date) (unknown) [facility] (no value) [facility] Result panel 4166 (unknown) (no date) (unknown) [facility] (no value) [facility] Result panel 4167 (unknown) (no date) (unknown) [facility] (no value) [facility] Result panel 4168 (unknown) (no date) (unknown) [facility]-In (no value) [facility] Result panel 4169 (unknown) (no date) (unknown) [facility] (no value) [facility] Result panel 4170 (unknown) (no date) (unknown) [facility] (no value) [facility] Result panel 4171 (unknown) (no date) (unknown) [facility] (no value) [facility] Result panel 4172 (unknown) (no date) (unknown) [facility] (no value) [facility] Result panel 4173 (unknown) (no date) (unknown) [facility] (no value) [facility] Result panel 4174 (unknown) (no date) (unknown) [facility] (no value) [facility] Result panel 4175 (unknown) (no date) (unknown) [facility] (no value) [facility] Result panel 4176 (unknown) (no date) (unknown) [facility] (no value) [facility] Result panel 4177 (unknown) (no date) (unknown) [facility] (no value) [facility] Result panel 4178 (unknown) (no date) (unknown) [facility] (no value) [facility] Result panel 4179 (unknown) (no date) (unknown) [facility] (no value) [facility] Result panel 4180 (unknown) (no date) (unknown) [facility] (no value) [facility] Result panel 4181 (unknown) (no date) (unknown) [facility] (no value) [facility] Result panel 4182 (unknown) (no date) (unknown) [facility] (no value) [facility] Result panel 4183 (unknown) (no date) (unknown) [facility] (no value) [facility] Result panel 4184 (unknown) (no date) (unknown) [facility] (no value) [facility] Result panel 4185 (unknown) (no date) (unknown) [facility] (no value) [facility] Result panel 4186 (unknown) (no date) (unknown) [facility] (no value) [facility] Result panel 4187 (unknown) (no date) (unknown) [facility] (no value) [facility] Result panel 4188 (unknown) (no date) (unknown) [facility] (no value) [facility] Result panel 4189 (unknown) (no date) (unknown) [facility] (no value) [facility] Result panel 4190 (unknown) (no date) (unknown) [facility] (no value) [facility] Result panel 4191 (unknown) (no date) (unknown) [facility] (no value) [facility] Result panel 4192 (unknown) (no date) (unknown) [facility] (no value) [facility] Result panel 4193 (unknown) (no date) (unknown) [facility] (no value) [facility] Result panel 4194 (unknown) (no date) (unknown) [facility] (no value) [facility] Result panel 4195 (unknown) (no date) (unknown) [facility] (no value) [facility] Result panel 4196 (unknown) (no date) (unknown) [facility] (no value) [facility] Result panel 4197 (unknown) (no date) (unknown) [facility] (no value) [facility] Result panel 4198 (unknown) (no date) (unknown) [facility] (no value) [facility] Result panel 4199 (unknown) (no date) (unknown) [facility] (no value) [facility] Result panel 4200 (unknown) (no date) (unknown) [facility] (no value) [facility] Result panel 4201 (unknown) (no date) (unknown) [facility] (no value) [facility] Result panel 4202 (unknown) (no date) (unknown) [facility] (no value) [facility] Result panel 4203 (unknown) (no date) (unknown) [facility] (no value) [facility] Result panel 4204 (unknown) (no date) (unknown) [facility] (no value) [facility] Result panel 4205 (unknown) (no date) (unknown) [facility] (no value) [facility] Result panel 4206 (unknown) (no date) (unknown) [facility] (no value) [facility] Result panel 4207 (unknown) (no date) (unknown) [facility] (no value) [facility] Result panel 4208 (unknown) (no date) (unknown) [facility] (no value) [facility] Result panel 4209 (unknown) (no date) (unknown) [facility] (no value) [facility] Result panel 4210 (unknown) (no date) (unknown) [facility] (no value) [facility] Result panel 4211 (unknown) (no date) (unknown) [facility] (no value) [facility] Result panel 4212 (unknown) (no date) (unknown) [facility] (no value) [facility] Result panel 4213 (unknown) (no date) (unknown) [facility] (no value) [facility] Result panel 4214 (unknown) (no date) (unknown) [facility] (no value) [facility] Result panel 4215 (unknown) (no date) (unknown) [facility] (no value) [facility] Result panel 4216 (unknown) (no date) (unknown) [facility] (no value) [facility] Result panel 4217 (unknown) (no date) (unknown) [facility] (no value) [facility] Result panel 4218 (unknown) (no date) (unknown) [facility] (no value) [facility] Result panel 4219 (unknown) (no date) (unknown) [facility] (no value) [facility] Result panel 4220 (unknown) (no date) (unknown) [facility] (no value) [facility] Result panel 4221 (unknown) (no date) (unknown) [facility] (no value) [facility] Result panel 4222 (unknown) (no date) (unknown) [facility] (no value) [facility] Result panel 4223 (unknown) (no date) (unknown) [facility] (no value) [facility] Result panel 4224 (unknown) (no date) (unknown) [facility] (no value) [facility] Result panel 4225 (unknown) (no date) (unknown) [facility] (no value) [facility] Result panel 4226 (unknown) (no date) (unknown) [facility] (no value) [facility] Result panel 4227 (unknown) (no date) (unknown) [facility] (no value) [facility] Result panel 4228 (unknown) (no date) (unknown) [facility] (no value) [facility] Result panel 4229 (unknown) (no date) (unknown) [facility] (no value) [facility] Result panel 4230 (unknown) (no date) (unknown) [facility] (no value) [facility] Result panel 4231 (unknown) (no date) (unknown) [facility] (no value) [facility] Result panel 4232 (unknown) (no date) (unknown) [facility] (no value) [facility] Result panel 4233 (unknown) (no date) (unknown) [facility] (no value) [facility] Result panel 4234 (unknown) (no date) (unknown) [facility] (no value) [facility] Result panel 4235 (unknown) (no date) (unknown) [facility] (no value) [facility] Result panel 4236 (unknown) (no date) (unknown) [facility] (no value) [facility] Result panel 4237 (unknown) (no date) (unknown) [facility] (no value) [facility] Result panel 4238 (unknown) (no date) (unknown) [facility] (no value) [facility] Result panel 4239 (unknown) (no date) (unknown) [facility] (no value) [facility] Result panel 4240 (unknown) (no date) (unknown) [facility] (no value) [facility] Result panel 4241 (unknown) (no date) (unknown) [facility] (no value) [facility] Result panel 4242 (unknown) (no date) (unknown) [facility] (no value) [facility] Result panel 4243 (unknown) (no date) (unknown) [facility] (no value) [facility] Result panel 4244 (unknown) (no date) (unknown) [facility] (no value) [facility] Result panel 4245 (unknown) (no date) (unknown) [facility] (no value) [facility] Result panel 4246 (unknown) (no date) (unknown) [facility] (no value) [facility] Result panel 4247 (unknown) (no date) (unknown) [facility] (no value) [facility] Result panel 4248 (unknown) (no date) (unknown) [facility] (no value) [facility] Result panel 4249 (unknown) (no date) (unknown) [facility] (no value) [facility] Result panel 4250 (unknown) (no date) (unknown) [facility] (no value) [facility] Result panel 4251 (unknown) (no date) (unknown) [facility] (no value) [facility] Result panel 4252 (unknown) (no date) (unknown) [facility] (no value) [facility] Result panel 4253 (unknown) (no date) (unknown) [facility] (no value) [facility] Result panel 4254 (unknown) (no date) (unknown) [facility] (no value) [facility] Result panel 4255 (unknown) (no date) (unknown) [facility] (no value) [facility] Result panel 4256 (unknown) (no date) (unknown) [facility] (no value) [facility] Result panel 4257 (unknown) (no date) (unknown) [facility] (no value) [facility] Result panel 4258 (unknown) (no date) (unknown) [facility] (no value) [facility] Result panel 4259 (unknown) (no date) (unknown) [facility] (no value) [facility] Result panel 4260 (unknown) (no date) (unknown) [facility] (no value) [facility] Result panel 4261 (unknown) (no date) (unknown) [facility] (no value) [facility] Result panel 4262 (unknown) (no date) (unknown) [facility] (no value) [facility] Result panel 4263 (unknown) (no date) (unknown) [facility] (no value) [facility] Result panel 4264 (unknown) (no date) (unknown) [facility] (no value) [facility] Result panel 4265 (unknown) (no date) (unknown) [facility] (no value) [facility] Result panel 4266 (unknown) (no date) (unknown) [facility] (no value) [facility] Result panel 4267 (unknown) (no date) (unknown) [facility] (no value) [facility] Result panel 4268 (unknown) (no date) (unknown) [facility] (no value) [facility] Result panel 4269 (unknown) (no date) (unknown) [facility] (no value) [facility] Result panel 4270 (unknown) (no date) (unknown) [facility] (no value) [facility] Result panel 4271 (unknown) (no date) (unknown) [facility] (no value) [facility] Result panel 4272 (unknown) (no date) (unknown) [facility] (no value) [facility] Result panel 4273 (unknown) (no date) (unknown) [facility] (no value) [facility] Result panel 4274 (unknown) (no date) (unknown) [facility] (no value) [facility] Result panel 4275 (unknown) (no date) (unknown) [facility] (no value) [facility] Result panel 4276 (unknown) (no date) (unknown) [facility] (no value) [facility] Result panel 4277 (unknown) (no date) (unknown) [facility] (no value) [facility] Result panel 4278 (unknown) (no date) (unknown) [facility] (no value) [facility] Result panel 4279 (unknown) (no date) (unknown) [facility] (no value) [facility] Result panel 4280 (unknown) (no date) (unknown) [facility] (no value) [facility] Result panel 4281 (unknown) (no date) (unknown) [facility] (no value) [facility] Result panel 4282 (unknown) (no date) (unknown) [facility] (no value) [facility] Result panel 4283 (unknown) (no date) (unknown) [facility] (no value) [facility] Result panel 4284 (unknown) (no date) (unknown) Walk-[facility] (no value) [facility] [facility] Result panel 4285 (unknown) (no date) (unknown) [facility]no value[facility] Result panel 4286 (unknown) (no date) (unknown) [facility] (no value) [facility] Result panel 4287 (unknown) (no date) (unknown) [facility] (no value) [facility] Result panel 4288 (unknown) (no date) (unknown) [facility] (no value) [facility] Result panel 4289 (unknown) (no date) (unknown) [facility] (no value) [facility] Result panel 4290 (unknown) (no date) (unknown) [facility] (no value) [facility] Result panel 4291 (unknown) (no date) (unknown) [facility] (no value) [facility] Result panel 4292 (unknown) (no date) (unknown) [facility] (no value) [facility] Result panel 4293 (unknown) (no date) (unknown) [facility] (no value) [facility] Result panel 4294 (unknown) (no date) (unknown) [facility] (no value) [facility] Result panel 4295 (unknown) (no date) (unknown) [facility] (no value) [facility] Result panel 4296 (unknown) (no date) (unknown) [facility] (no value) [facility] Result panel 4297 (unknown) (no date) (unknown) [facility] (no value) [facility] Result panel 4298 (unknown) (no date) (unknown) [facility] (no value) [facility] Result panel 4299 (unknown) (no date) (unknown) [facility] (no value) [facility] Result panel 4300 (unknown) (no date) (unknown) [facility] (no value) [facility] Result panel 4301 (unknown) (no date) (unknown) [facility] (no value) [facility] Result panel 4302 (unknown) (no date) (unknown) [facility] (no value) [facility] Result panel 4303 (unknown) (no date) (unknown) [facility] (no value) [facility] Result panel 4304 (unknown) (no date) (unknown) [facility] (no value) [facility] Result panel 4305 (unknown) (no date) (unknown) [facility] (no value) [facility] Result panel 4306 (unknown) (no date) (unknown) [facility] (no value) [facility] Result panel 4307 (unknown) (no date) (unknown) [facility] (no value) [facility] Result panel 4308 (unknown) (no date) (unknown) [facility] (no value) [facility] Result panel 4309 (unknown) (no date) (unknown) [facility] (no value) [facility] Result panel 4310 (unknown) (no date) (unknown) [facility] (no value) [facility] Result panel 4311 (unknown) (no date) (unknown) [facility] (no value) [facility] Result panel 4312 (unknown) (no date) (unknown) [facility] (no value) [facility] Result panel 4313 (unknown) (no date) (unknown) [facility] (no value) [facility] Result panel 4314 (unknown) (no date) (unknown) [facility] (no value) [facility] Result panel 4315 (unknown) (no date) (unknown) [facility] (no value) [facility] Result panel 4316 (unknown) (no date) (unknown) [facility] (no value) [facility] Result panel 4317 (unknown) (no date) (unknown) [facility] (no value) [facility] Result panel 4318 (unknown) (no date) (unknown) [facility] (no value) [facility] Result panel 4319 (unknown) (no date) (unknown) [facility] (no value) [facility] Result panel 4320 (unknown) (no date) (unknown) [facility] (no value) [facility] Result panel 4321 (unknown) (no date) (unknown) [facility] (no value) [facility] Result panel 4322 (unknown) (no date) (unknown) [facility] (no value) [facility] Result panel 4323 (unknown) (no date) (unknown) [facility] (no value) [facility] Result panel 4324 (unknown) (no date) (unknown) [facility] (no value) [facility] Result panel 4325 (unknown) (no date) (unknown) [facility] (no value) [facility] Result panel 4326 (unknown) (no date) (unknown) [facility] (no value) [facility] Result panel 4327 (unknown) (no date) (unknown) [facility] (no value) [facility] Result panel 4328 (unknown) (no date) (unknown) [facility] (no value) [facility] Result panel 4329 (unknown) (no date) (unknown) [facility] (no value) [facility] Result panel 4330 (unknown) (no date) (unknown) [facility] (no value) [facility] Result panel 4331 (unknown) (no date) (unknown) [facility] (no value) [facility] Result panel 4332 (unknown) (no date) (unknown) [facility] (no value) [facility] Result panel 4333 (unknown) (no date) (unknown) [facility] (no value) [facility] Result panel 4334 (unknown) (no date) (unknown) [facility] (no value) [facility] Result panel 4335 (unknown) (no date) (unknown) [facility] (no value) [facility] Result panel 4336 (unknown) (no date) (unknown) [facility] (no value) [facility] Result panel 4337 (unknown) (no date) (unknown) [facility] (no value) [facility] Result panel 4338 (unknown) (no date) (unknown) [facility] (no value) [facility] Result panel 4339 (unknown) (no date) (unknown) [facility] (no value) [facility] Result panel 4340 (unknown) (no date) (unknown) [facility] (no value) [facility] Result panel 4341 (unknown) (no date) (unknown) [facility] (no value) [facility] Result panel 4342 (unknown) (no date) (unknown) [facility] (no value) [facility] Result panel 4343 (unknown) (no date) (unknown) [facility] (no value) [facility] Result panel 4344 (unknown) (no date) (unknown) [facility] (no value) [facility] Result panel 4345 (unknown) (no date) (unknown) [facility] (no value) [facility] Result panel 4346 (unknown) (no date) (unknown) [facility] (no value) [facility] Result panel 4347 (unknown) (no date) (unknown) [facility] (no value) [facility] Result panel 4348 (unknown) (no date) (unknown) [facility] (no value) [facility] Result panel 4349 (unknown) (no date) (unknown) [facility] (no value) [facility] Result panel 4350 (unknown) (no date) (unknown) [facility] (no value) [facility] Result panel 4351 (unknown) (no date) (unknown) [facility] (no value) [facility] Result panel 4352 (unknown) (no date) (unknown) [facility] (no value) [facility] Result panel 4353 (unknown) (no date) (unknown) [facility] (no value) [facility] Result panel 4354 (unknown) (no date) (unknown) [facility] (no value) [facility] Result panel 4355 (unknown) (no date) (unknown) [facility] (no value) [facility] Result panel 4356 (unknown) (no date) (unknown) [facility] (no value) [facility] Result panel 4357 (unknown) (no date) (unknown) [facility] (no value) [facility] Result panel 4358 (unknown) (no date) (unknown) [facility] (no value) [facility] Result panel 4359 (unknown) (no date) (unknown) [facility] (no value) [facility] Result panel 4360 (unknown) (no date) (unknown) [facility] (no value) [facility] Result panel 4361 (unknown) (no date) (unknown) [facility] (no value) [facility] Result panel 4362 (unknown) (no date) (unknown) [facility] (no value) [facility] Result panel 4363 (unknown) (no date) (unknown) [facility] (no value) [facility] Result panel 4364 (unknown) (no date) (unknown) [facility] (no value) [facility] Result panel 4365 (unknown) (no date) (unknown) [facility] (no value) [facility] Result panel 4366 (unknown) (no date) (unknown) [facility] (no value) [facility] Result panel 4367 (unknown) (no date) (unknown) [facility] (no value) [facility] Result panel 4368 (unknown) (no date) (unknown) [facility] (no value) [facility] Result panel 4369 (unknown) (no date) (unknown) [facility] (no value) [facility] Result panel 4370 (unknown) (no date) (unknown) [facility] (no value) [facility] Result panel 4371 (unknown) (no date) (unknown) [facility] (no value) [facility] Result panel 4372 (unknown) (no date) (unknown) [facility] (no value) [facility] Result panel 4373 (unknown) (no date) (unknown) [facility] (no value) [facility] Result panel 4374 (unknown) (no date) (unknown) [facility] (no value) [facility] Result panel 4375 (unknown) (no date) (unknown) [facility] (no value) [facility] Result panel 4376 (unknown) (no date) (unknown) [facility] (no value) [facility] Result panel 4377 (unknown) (no date) (unknown) [facility] (no value) [facility] Result panel 4378 (unknown) (no date) (unknown) [facility] (no value) [facility] Result panel 4379 (unknown) (no date) (unknown) [facility] (no value) [facility] Result panel 4380 (unknown) (no date) (unknown) [facility] (no value) [facility] Result panel 4381 (unknown) (no date) (unknown) [facility] (no value) [facility] Result panel 4382 (unknown) (no date) (unknown) [facility] (no value) [facility] Result panel 4383 (unknown) (no date) (unknown) [facility] (no value) [facility] Result panel 4384 (unknown) (no date) (unknown) [facility] (no value) [facility] Result panel 4385 (unknown) (no date) (unknown) [facility] (no value) [facility] Result panel 4386 (unknown) (no date) (unknown) [facility] (no value) [facility] Result panel 4387 (unknown) (no date) (unknown) [facility] (no value) [facility] Result panel 4388 (unknown) (no date) (unknown) [facility] (no value) [facility] Result panel 4389 (unknown) (no date) (unknown) [facility] (no value) [facility] Result panel 4390 (unknown) (no date) (unknown) [facility] (no value) [facility] Result panel 4391 (unknown) (no date) (unknown) [facility] (no value) [facility] Result panel 4392 (unknown) (no date) (unknown) [facility] (no value) [facility] Result panel 4393 (unknown) (no date) (unknown) [facility] (no value) [facility] Result panel 4394 (unknown) (no date) (unknown) [facility] (no value) [facility] Result panel 4395 (unknown) (no date) (unknown) [facility] (no value) [facility] Result panel 4396 (unknown) (no date) (unknown) [facility] (no value) [facility] Result panel 4397 (unknown) (no date) (unknown) [facility] (no value) [facility] Result panel 4398 (unknown) (no date) (unknown) [facility] (no value) [facility] Result panel 4399 (unknown) (no date) (unknown) [facility] (no value) [facility] Result panel 4400 (unknown) (no date) (unknown) [facility] (no value) [facility] Result panel 4401 (unknown) (no date) (unknown) [facility] (no value) [facility] Result panel 4402 (unknown) (no date) (unknown) [facility] (no value) [facility] Result panel 4403 (unknown) (no date) (unknown) [facility] (no value) [facility] Result panel 4404 (unknown) (no date) (unknown) [facility] (no value) [facility] Result panel 4405 (unknown) (no date) (unknown) [facility] (no value) [facility] Result panel 4406 (unknown) (no date) (unknown) [facility] (no value) [facility] Result panel 4407 (unknown) (no date) (unknown) [facility] (no value) [facility] Result panel 4408 (unknown) (no date) (unknown) [facility] (no value) [facility] Result panel 4409 (unknown) (no date) (unknown) [facility] (no value) [facility] Result panel 4410 (unknown) (no date) (unknown) [facility] (no value) [facility] Result panel 4411 (unknown) (no date) (unknown) [facility] (no value) [facility] Result panel 4412 (unknown) (no date) (unknown) [facility] (no value) [facility] Result panel 4413 (unknown) (no date) (unknown) [facility] (no value) [facility] Result panel 4414 (unknown) (no date) (unknown) [facility] (no value) [facility] Result panel 4415 (unknown) (no date) (unknown) [facility] (no value) [facility] Result panel 4416 (unknown) (no date) (unknown) [facility] (no value) [facility] Result panel 4417 (unknown) (no date) (unknown) [facility] (no value) [facility] Result panel 4418 (unknown) (no date) (unknown) [facility] (no value) [facility] Result panel 4419 (unknown) (no date) (unknown) [facility] (no value) [facility] Result panel 4420 (unknown) (no date) (unknown) [facility] (no value) [facility] Result panel 4421 (unknown) (no date) (unknown) [facility] (no value) [facility] Result panel 4422 (unknown) (no date) (unknown) [facility] (no value) [facility] Result panel 4423 (unknown) (no date) (unknown) [facility] (no value) [facility] Result panel 4424 (unknown) (no date) (unknown) [facility] (no value) [facility] Result panel 4425 (unknown) (no date) (unknown) [facility] (no value) [facility] Result panel 4426 (unknown) (no date) (unknown) [facility] (no value) [facility] Result panel 4427 (unknown) (no date) (unknown) [facility] (no value) [facility] Result panel 4428 (unknown) (no date) (unknown) [facility] (no value) [facility] Result panel 4429 (unknown) (no date) (unknown) [facility] (no value) [facility] Result panel 4430 (unknown) (no date) (unknown) [facility] (no value) [facility] Result panel 4431 (unknown) (no date) (unknown) [facility] (no value) [facility] Result panel 4432 (unknown) (no date) (unknown) [facility] (no value) [facility] Result panel 4433 (unknown) (no date) (unknown) [facility] (no value) [facility] Result panel 4434 (unknown) (no date) (unknown) [facility] (no value) [facility] Result panel 4435 (unknown) (no date) (unknown) [facility] (no value) [facility] Result panel 4436 (unknown) (no date) (unknown) [facility] (no value) [facility] Result panel 4437 (unknown) (no date) (unknown) [facility] (no value) [facility] Result panel 4438 (unknown) (no date) (unknown) [facility] (no value) [facility] Result panel 4439 (unknown) (no date) (unknown) [facility] (no value) [facility] Result panel 4440 (unknown) (no date) (unknown) [facility] (no value) [facility] Result panel 4441 (unknown) (no date) (unknown) [facility] (no value) [facility] Result panel 4442 (unknown) (no date) (unknown) [facility] (no value) [facility] Result panel 4443 (unknown) (no date) (unknown) [facility] (no value) [facility] Result panel 4444 (unknown) (no date) (unknown) [facility] (no value) [facility] Result panel 4445 (unknown) (no date) (unknown) [facility] (no value) [facility] Result panel 4446 (unknown) (no date) (unknown) [facility] (no value) [facility] Result panel 4447 (unknown) (no date) (unknown) [facility] (no value) [facility] Result panel 4448 (unknown) (no date) (unknown) [facility] (no value) [facility] Result panel 4449 (unknown) (no date) (unknown) [facility] (no value) [facility] Result panel 4450 (unknown) (no date) (unknown) [facility] (no value) [facility] Result panel 4451 (unknown) (no date) (unknown) [facility] (no value) [facility] Result panel 4452 (unknown) (no date) (unknown) Walk-In (no value) (units [facility] [facility] Result panel 4453 (unknown) (no date) (unknown) Walk-In (no value) [facility] Result panel 4454 (unknown) (no date) (unknown) [facility] (no value) [facility] Result panel 4455 (unknown) (no date) (unknown) [facility] (no value) [facility] Result panel 4456 (unknown) (no date) (unknown) [facility] (no value) [facility] Result panel 4457 (unknown) (no date) (unknown) [facility] (no value) [facility] Result panel 4458 (unknown) (no date) (unknown) [facility] (no value) [facility] Result panel 4459 (unknown) (no date) (unknown) Walk-[facility] (no value) [facility] Result panel 4460 (unknown) (no date) (unknown) [facility] (no value) [facility] Result panel 4461 (unknown) (no date) (unknown) [facility] (no value) [facility] Result panel 4462 (unknown) (no date) (unknown) [facility]-In (no value) [facility] Result panel 4463 (unknown) (no date) (unknown) [facility] (no value) [facility] Result panel 4464 (unknown) (no date) (unknown) [facility] (no value) [facility] Result panel 4465 (unknown) (no date) (unknown) [facility] (no value) [facility] Result panel 4466 (unknown) (no date) (unknown) Walk-[facility] (no value) [facility] Result panel 4467 (unknown) (no date) (unknown) [facility] (no value) [facility] Result panel 4468 (unknown) (no date) (unknown) Walk-In (no value) [facility] Result panel 4469 (unknown) (no date) (unknown) [facility] (no value) [facility] Result panel 4470 (unknown) (no date) (unknown) [facility] (no value) [facility] Result panel 4471 (unknown) (no date) (unknown) [facility] (no value) [facility] Result panel 4472 (unknown) (no date) (unknown) Walk-[facility] (no value) [facility] Result panel 4473 (unknown) (no date) (unknown) Walk-[facility] (no value) [facility] Result panel 4474 (unknown) (no date) (unknown) Walk-In (no value) [facility] Result panel 4475 (unknown) (no date) (unknown) Walk-In (no value) [facility] Result panel 4476 (unknown) (no date) (unknown) [facility]-In (no value) [facility] Result panel 4477 (unknown) (no date) (unknown) [facility] (no value) [facility] Result panel 4478 (unknown) (no date) (unknown) [facility] (no value) [facility] Result panel 4479 (unknown) (no date) (unknown) [facility] (no value) [facility] Result panel 4480 (unknown) (no date) (unknown) [facility] (no value) [facility] Result panel 4481 (unknown) (no date) (unknown) Walk-In (no value) [facility] Result panel 4482 (unknown) (no date) (unknown) [facility]-In (no value) [facility] Result panel 4483 (unknown) (no date) (unknown) [facility] (no value) [facility] Result panel 4484 (unknown) (no date) (unknown) [facility]-In (no value) [facility] Result panel 4485 (unknown) (no date) (unknown) Walk-In (no value) [facility] Result panel 4486 (unknown) (no date) (unknown) [facility]-In (no value) [facility] Result panel 4487 (unknown) (no date) (unknown) Walk-In (no value) [facility] Result panel 4488 (unknown) (no date) (unknown) [facility] (no value) [facility] Result panel 4489 (unknown) (no date) (unknown) [facility]-In (no value) [facility] Result panel 4490 (unknown) (no date) (unknown) [facility] (no value) [facility] Result panel 4491 (unknown) (no date) (unknown) [facility] (no value) [facility] Result panel 4492 (unknown) (no date) (unknown) [facility] (no value) [facility] Result panel 4493 (unknown) (no date) (unknown) [facility] (no value) [facility] Result panel 4494 (unknown) (no date) (unknown) [facility] (no value) [facility] Result panel 4495 (unknown) (no date) (unknown) [facility] (no value) [facility] Result panel 4496 (unknown) (no date) (unknown) [facility] (no value) [facility] Result panel 4497 (unknown) (no date) (unknown) [facility] (no value) [facility] Result panel 4498 (unknown) (no date) (unknown) [facility] (no value) [facility] Result panel 4499 (unknown) (no date) (unknown) [facility]-In (no value) [facility] Result panel 4500 (unknown) (no date) (unknown) Walk-In (no value) [facility] Result panel 4501 (unknown) (no date) (unknown) Walk-In (no value) [facility] Result panel 4502 (unknown) (no date) (unknown) [facility] (no value) [facility] Result panel 4503 (unknown) (no date) (unknown) [facility]-In (no value) [facility] Result panel 4504 (unknown) (no date) (unknown) Walk-In (no value) [facility] Result panel 4505 (unknown) (no date) (unknown) Walk-[facility] (no value) [facility] Result panel 4506 (unknown) (no date) (unknown) [facility] (no value) [facility] Result panel 4507 (unknown) (no date) (unknown) Walk-In (no value) [facility] Result panel 4508 (unknown) (no date) (unknown) [facility] (no value) [facility] Result panel 4509 (unknown) (no date) (unknown) [facility] (no value) [facility] Result panel 4510 (unknown) (no date) (unknown) [facility] (no value) [facility] Result panel 4511 (unknown) (no date) (unknown) [facility] (no value) [facility] Result panel 4512 (unknown) (no date) (unknown) [facility] (no value) [facility] Result panel 4513 (unknown) (no date) (unknown) Walk-In (no value) [facility] Result panel 4514 (unknown) (no date) (unknown) Walk-In (no value) [facility] Result panel 4515 (unknown) (no date) (unknown) [facility] (no value) [facility] Result panel 4516 (unknown) (no date) (unknown) Walk-In (no value) [facility] Result panel 4517 (unknown) (no date) (unknown) [facility]-In (no value) [facility] Result panel 4518 (unknown) (no date) (unknown) Walk-In (no value) [facility] Result panel 4519 (unknown) (no date) (unknown) [facility]-In (no value) [facility] Result panel 4520 (unknown) (no date) (unknown) Walk-In (no value) [facility] Result panel 4521 (unknown) (no date) (unknown) [facility] (no value) [facility] Result panel 4522 (unknown) (no date) (unknown) Walk-In (no value) [facility] Result panel 4523 (unknown) (no date) (unknown) [facility] (no value) [facility] Result panel 4524 (unknown) (no date) (unknown) Walk-In (no value) [facility] Result panel 4525 (unknown) (no date) (unknown) Walk-In (no value) [facility] Result panel 4526 (unknown) (no date) (unknown) Walk-In (no value) [facility] Result panel 4527 (unknown) (no date) (unknown) Walk-In (no value) [facility] Result panel 4528 (unknown) (no date) (unknown) Walk-In (no value) [facility] Result panel 4529 (unknown) (no date) (unknown) [facility] (no value) [facility] Result panel 4530 (unknown) (no date) (unknown) [facility] (no value) [facility] Result panel 4531 (unknown) (no date) (unknown) [facility] (no value) [facility] Result panel 4532 (unknown) (no date) (unknown) [facility]-In (no value) [facility] Result panel 4533 (unknown) (no date) (unknown) [facility]-In (no value) [facility] Result panel 4534 (unknown) (no date) (unknown) [facility] (no value) [facility] Result panel 4535 (unknown) (no date) (unknown) [facility] (no value) [facility] Result panel 4536 (unknown) (no date) (unknown) [facility] (no value) [facility] Result panel 4537 (unknown) (no date) (unknown) [facility] (no value) [facility] Result panel 4538 (unknown) (no date) (unknown) [facility]-In (no value) [facility] Result panel 4539 (unknown) (no date) (unknown) [facility] (no value) [facility] Result panel 4540 (unknown) (no date) (unknown) [facility] (no value) [facility] Result panel 4541 (unknown) (no date) (unknown) [facility]-In (no value) [facility] Result panel 4542 (unknown) (no date) (unknown) [facility] (no value) [facility] Result panel 4543 (unknown) (no date) (unknown) [facility] (no value) [facility] Result panel 4544 (unknown) (no date) (unknown) [facility]-In (no value) [facility] Result panel 4545 (unknown) (no date) (unknown) [facility] (no value) [facility] Result panel 4546 (unknown) (no date) (unknown) [facility]-In (no value) [facility] Result panel 4547 (unknown) (no date) (unknown) [facility] (no value) [facility] Result panel 4548 (unknown) (no date) (unknown) [facility] (no value) [facility] Result panel 4549 (unknown) (no date) (unknown) [facility] (no value) [facility] Result panel 4550 (unknown) (no date) (unknown) Walk-[facility] (no value) [facility] Result panel 4551 (unknown) (no date) (unknown) [facility] (no value) [facility] Result panel 4552 (unknown) (no date) (unknown) [facility] (no value) [facility] Result panel 4553 (unknown) (no date) (unknown) [facility] (no value) [facility] Result panel 4554 (unknown) (no date) (unknown) [facility]-In (no value) [facility] Result panel 4555 (unknown) (no date) (unknown) [facility] (no value) [facility] Result panel 4556 (unknown) (no date) (unknown) [facility] (no value) [facility] Result panel 4557 (unknown) (no date) (unknown) [facility]-In (no value) [facility] Result panel 4558 (unknown) (no date) (unknown) [facility]-In (no value) [facility] Result panel 4559 (unknown) (no date) (unknown) [facility]-In (no value) [facility] Result panel 4560 (unknown) (no date) (unknown) Walk-In (no value) [facility] Result panel 4561 (unknown) (no date) (unknown) [facility] (no value) [facility] Result panel 4562 (unknown) (no date) (unknown) [facility] (no value) [facility] Result panel 4563 (unknown) (no date) (unknown) [facility] (no value) [facility] Result panel 4564 (unknown) (no date) (unknown) [facility] (no value) [facility] Result panel 4565 (unknown) (no date) (unknown) [facility]-In (no value) [facility] Result panel 4566 (unknown) (no date) (unknown) Walk-In (no value) [facility] Result panel 4567 (unknown) (no date) (unknown) Walk-In (no value) [facility] Result panel 4568 (unknown) (no date) (unknown) [facility]-In (no value) [facility] Result panel 4569 (unknown) (no date) (unknown) [facility] (no value) [facility] Result panel 4570 (unknown) (no date) (unknown) [facility] (no value) [facility] Result panel 4571 (unknown) (no date) (unknown) [facility] (no value) [facility] Result panel 4572 (unknown) (no date) (unknown) [facility]-In (no value) [facility] Result panel 4573 (unknown) (no date) (unknown) [facility]-In (no value) [facility] Result panel 4574 (unknown) (no date) (unknown) [facility] (no value) [facility] Result panel 4575 (unknown) (no date) (unknown) [facility] (no value) [facility] Result panel 4576 (unknown) (no date) (unknown) [facility] (no value) [facility] Result panel 4577 (unknown) (no date) (unknown) [facility] (no value) [facility] Result panel 4578 (unknown) (no date) (unknown) [facility] (no value) [facility] Result panel 4579 (unknown) (no date) (unknown) [facility] (no value) [facility] Result panel 4580 (unknown) (no date) (unknown) [facility] (no value) [facility] Result panel 4581 (unknown) (no date) (unknown) [facility]-In (no value) [facility] Result panel 4582 (unknown) (no date) (unknown) [facility]-In (no value) [facility] Result panel 4583 (unknown) (no date) (unknown) [facility] (no value) [facility] Result panel 4584 (unknown) (no date) (unknown) [facility] (no value) [facility] Result panel 4585 (unknown) (no date) (unknown) Walk-In (no value) [facility] Result panel 4586 (unknown) (no date) (unknown) [facility]-In (no value) [facility] Result panel 4587 (unknown) (no date) (unknown) Walk-In (no value) [facility] Result panel 4588 (unknown) (no date) (unknown) [facility] (no value) [facility] Result panel 4589 (unknown) (no date) (unknown) [facility] (no value) [facility] Result panel 4590 (unknown) (no date) (unknown) [facility] (no value) [facility] Result panel 4591 (unknown) (no date) (unknown) [facility] (no value) [facility] Result panel 4592 (unknown) (no date) (unknown) [facility] (no value) [facility] Result panel 4593 (unknown) (no date) (unknown) [facility] (no value) [facility] Result panel 4594 (unknown) (no date) (unknown) [facility]-In (no value) [facility] Result panel 4595 (unknown) (no date) (unknown) [facility] (no value) [facility] Result panel 4596 (unknown) (no date) (unknown) [facility] (no value) [facility] Result panel 4597 (unknown) (no date) (unknown) [facility] (no value) [facility] Result panel 4598 (unknown) (no date) (unknown) [facility] (no value) [facility] Result panel 4599 (unknown) (no date) (unknown) [facility] (no value) [facility] Result panel 4600 (unknown) (no date) (unknown) [facility]-In (no value) [facility] Result panel 4601 (unknown) (no date) (unknown) [facility]-In (no value) [facility] Result panel 4602 (unknown) (no date) (unknown) [facility] (no value) [facility] Result panel 4603 (unknown) (no date) (unknown) [facility]-In (no value) [facility] Result panel 4604 (unknown) (no date) (unknown) Walk-In (no value) ([facility] Result panel 4605 (unknown) (no date) (unknown) [facility] (no value) [facility] Result panel 4606 (unknown) (no date) (unknown) Walk-In (no value) [facility] Result panel 4607 (unknown) (no date) (unknown) [facility]-In (no value) ([facility] Result panel 4608 (unknown) (no date) (unknown) [facility]-In (no value) [facility] Result panel 4609 (unknown) (no date) (unknown) [facility]-In (no value) [facility] Result panel 4610 (unknown) (no date) (unknown) [facility] (no value) [facility] Result panel 4611 (unknown) (no date) (unknown) [facility] (no value) [facility] Result panel 4612 (unknown) (no date) (unknown) [facility]-In (no value) [facility] Result panel 4613 (unknown) (no date) (unknown) [facility]-In (no value) [facility] Result panel 4614 (unknown) (no date) (unknown) [facility]-In (no value) [facility] Result panel 4615 (unknown) (no date) (unknown) [facility]-In (no value) [facility] Result panel 4616 (unknown) (no date) (unknown) [facility]-In (no value) [facility] Result panel 4617 (unknown) (no date) (unknown) [facility]-In (no value) ([facility] Result panel 4618 (unknown) (no date) (unknown) [facility]-In (no value) [facility] Result panel 4619 (unknown) (no date) (unknown) Walk-In (no value) [facility] Result panel 4620 (unknown) (no date) (unknown) Walk-In (no value) [facility] Result panel 4621 (unknown) (no date) (unknown) Walk-In (no value) [facility] Result panel 4622 (unknown) (no date) (unknown) Walk-In (no value) [facility] Result panel 4623 (unknown) (no date) (unknown) [facility]-In (no value) [facility] Result panel 4624 (unknown) (no date) (unknown) Walk-In (no value) [facility] Result panel 4625 (unknown) (no date) (unknown) Walk-In (no value) [facility] Result panel 4626 (unknown) (no date) (unknown) Walk-In (no value) [facility] Result panel 4627 (unknown) (no date) (unknown) Walk-In (no value) [facility] Result panel 4628 (unknown) (no date) (unknown) Walk-In (no value) [facility] Result panel 4629 (unknown) (no date) (unknown) Walk-In (no value) [facility] Result panel 4630 (unknown) (no date) (unknown) Walk-In (no value) [facility] Result panel 4631 (unknown) (no date) (unknown) Walk-In (no value) [facility] Result panel 4632 (unknown) (no date) (unknown) Walk-In (no value) [facility] Result panel 4633 (unknown) (no date) (unknown) Walk-In (no value) [facility] Result panel 4634 (unknown) (no date) (unknown) Walk-In (no value) [facility] Result panel 4635 (unknown) (no date) (unknown) Walk-In (no value) [facility] Result panel 4636 (unknown) (no date) (unknown) Walk-In (no value) [facility] Result panel 4637 (unknown) (no date) (unknown) [facility]-In (no value) [facility] Result panel 4638 (unknown) (no date) (unknown) Walk-In (no value) [facility] Result panel 4639 (unknown) (no date) (unknown) Walk-In (no value) [facility] Result panel 4640 (unknown) (no date) (unknown) Walk-In (no value) [facility] Result panel 4641 (unknown) (no date) (unknown) Walk-In (no value) [facility] Result panel 4642 (unknown) (no date) (unknown) Walk-In (no value) [facility] Result panel 4643 (unknown) (no date) (unknown) Walk-In (no value) [facility] Result panel 4644 (unknown) (no date) (unknown) Walk-In (no value) [facility] Result panel 4645 (unknown) (no date) (unknown) [facility]-In (no value) [facility] Result panel 4646 (unknown) (no date) (unknown) [facility]-In (no value) [facility] Result panel 4647 (unknown) (no date) (unknown) [facility]-In (no value) [facility] Result panel 4648 (unknown) (no date) (unknown) [facility]-In (no value) [facility] Result panel 4649 (unknown) (no date) (unknown) Walk-In (no value) [facility] Result panel 4650 (unknown) (no date) (unknown) Walk-In (no value) [facility] Result panel 4651 (unknown) (no date) (unknown) Walk-In (no value) [facility] Result panel 4652 (unknown) (no date) (unknown) Walk-In (no value) [facility] Result panel 4653 (unknown) (no date) (unknown) Walk-In (no value) [facility] Result panel 4654 (unknown) (no date) (unknown) Walk-In (no value) [facility] Result panel 4655 (unknown) (no date) (unknown) Walk-In (no value) [facility] Result panel 4656 (unknown) (no date) (unknown) Walk-In (no value) [facility] Result panel 4657 (unknown) (no date) (unknown) [facility]-In (no value) [facility] Result panel 4658 (unknown) (no date) (unknown) Walk-In (no value) [facility] Result panel 4659 (unknown) (no date) (unknown) [facility]-In (no value) [facility] Result panel 4660 (unknown) (no date) (unknown) Walk-In (no value) [facility] Result panel 4661 (unknown) (no date) (unknown) [facility]-In (no value) [facility] Result panel 4662 (unknown) (no date) (unknown) Walk-In (no value) [facility] Result panel 4663 (unknown) (no date) (unknown) [facility]-In (no value) [facility] Result panel 4664 (unknown) (no date) (unknown) [facility]-In (no value) [facility] Result panel 4665 (unknown) (no date) (unknown) [facility] (no value) [facility] Result panel 4666 (unknown) (no date) (unknown) Walk-In (no value) [facility] Result panel 4667 (unknown) (no date) (unknown) Walk-In (no value) [facility] Result panel 4668 (unknown) (no date) (unknown) Walk-In (no value) [facility] Result panel 4669 (unknown) (no date) (unknown) Walk-In (no value) [facility] Result panel 4670 (unknown) (no date) (unknown) Walk-In (no value) [facility] Result panel 4671 (unknown) (no date) (unknown) Walk-In (no value) [facility] Result panel 4672 (unknown) (no date) (unknown) Walk-In (no value) [facility] Result panel 4673 (unknown) (no date) (unknown) Walk-In (no value) [facility] Result panel 4674 (unknown) (no date) (unknown) Walk-In (no value) [facility] Result panel 4675 (unknown) (no date) (unknown) [facility]-In (no value) [facility] Result panel 4676 (unknown) (no date) (unknown) [facility]-In (no value) [facility] Result panel 4677 (unknown) (no date) (unknown) Walk-In (no value) [facility] Result panel 4678 (unknown) (no date) (unknown) [facility] (no value) [facility] Result panel 4679 (unknown) (no date) (unknown) [facility] (no value) [facility] Result panel 4680 (unknown) (no date) (unknown) [facility] (no value) [facility] Result panel 4681 (unknown) (no date) (unknown) Walk-In (no value) [facility] Result panel 4682 (unknown) (no date) (unknown) Walk-In (no value) [facility] Result panel 4683 (unknown) (no date) (unknown) [facility]-In (no value) [facility] Result panel 4684 (unknown) (no date) (unknown) [facility]-In (no value) [facility] Result panel 4685 (unknown) (no date) (unknown) [facility]-In (no value) [facility] Result panel 4686 (unknown) (no date) (unknown) [facility] (no value) [facility] Result panel 4687 (unknown) (no date) (unknown) [facility]-In (no value) [facility] Result panel 4688 (unknown) (no date) (unknown) [facility]-In (no value) [facility] Result panel 4689 (unknown) (no date) (unknown) [facility] (no value) [facility] Result panel 4690 (unknown) (no date) (unknown) Walk-In (no value) [facility] Result panel 4691 (unknown) (no date) (unknown) Walk-In (no value) [facility] Result panel 4692 (unknown) (no date) (unknown) Walk-In (no value) [facility] Result panel 4693 (unknown) (no date) (unknown) [facility]-In (no value) [facility] Result panel 4694 (unknown) (no date) (unknown) Walk-In (no value) [facility] Result panel 4695 (unknown) (no date) (unknown) Walk-In (no value) [facility] Result panel 4696 (unknown) (no date) (unknown) [facility]-In (no value) [facility] Result panel 4697 (unknown) (no date) (unknown) [facility]-In (no value) [facility] Result panel 4698 (unknown) (no date) (unknown) [facility]-In (no value) [facility] Result panel 4699 (unknown) (no date) (unknown) Walk-In (no value) [facility] Result panel 4700 (unknown) (no date) (unknown) [facility]-In (no value) [facility] Result panel 4701 (unknown) (no date) (unknown) Walk-In (no value) [facility] Result panel 4702 (unknown) (no date) (unknown) Walk-[facility] (no value) [facility] Result panel 4703 (unknown) (no date) (unknown) [facility] (no value) [facility] Result panel 4704 (unknown) (no date) (unknown) [facility] (no value) [facility] Result panel 4705 (unknown) (no date) (unknown) [facility] (no value) [facility] Result panel 4706 (unknown) (no date) (unknown) [facility]-In (no value) [facility] Result panel 4707 (unknown) (no date) (unknown) [facility]-In (no value) [facility] Result panel 4708 (unknown) (no date) (unknown) [facility] (no value) [facility] Result panel 4709 (unknown) (no date) (unknown) Walk-In (no value) [facility] Result panel 4710 (unknown) (no date) (unknown) [facility] (no value) [facility] Result panel 4711 (unknown) (no date) (unknown) [facility] (no value) [facility] Result panel 4712 (unknown) (no date) (unknown) [facility] (no value) [facility] Result panel 4713 (unknown) (no date) (unknown) [facility] (no value) [facility] Result panel 4714 (unknown) (no date) (unknown) [facility]-In (no value) [facility] Result panel 4715 (unknown) (no date) (unknown) [facility] (no value) [facility] Result panel 4716 (unknown) (no date) (unknown) [facility] (no value) [facility] Result panel 4717 (unknown) (no date) (unknown) [facility] (no value) [facility] Result panel 4718 (unknown) (no date) (unknown) [facility] (no value) [facility] Result panel 4719 (unknown) (no date) (unknown) [facility] (no value) [facility] Result panel 4720 (unknown) (no date) (unknown) [facility] (no value) [facility] Result panel 4721 (unknown) (no date) (unknown) [facility]-In (no value) [facility] Result panel 4722 (unknown) (no date) (unknown) [facility] (no value) [facility] Result panel 4723 (unknown) (no date) (unknown) [facility] (no value) [facility] Result panel 4724 (unknown) (no date) (unknown) [facility] (no value) [facility] Result panel 4725 (unknown) (no date) (unknown) [facility] (no value) [facility] Result panel 4726 (unknown) (no date) (unknown) [facility] (no value) [facility] Result panel 4727 (unknown) (no date) (unknown) [facility] (no value) [facility] Result panel 4728 (unknown) (no date) (unknown) [facility] (no value) [facility] Result panel 4729 (unknown) (no date) (unknown) [facility] (no value) [facility] Result panel 4730 (unknown) (no date) (unknown) [facility]-In (no value) [facility] Result panel 4731 (unknown) (no date) (unknown) [facility] (no value) [facility] Result panel 4732 (unknown) (no date) (unknown) [facility] (no value) [facility] Result panel 4733 (unknown) (no date) (unknown) [facility] (no value) [facility] Result panel 4734 (unknown) (no date) (unknown) [facility] (no value) [facility] Result panel 4735 (unknown) (no date) (unknown) [facility]-In (no value) [facility] Result panel 4736 (unknown) (no date) (unknown) [facility] (no value) [facility] Result panel 4737 (unknown) (no date) (unknown) [facility] (no value) [facility] Result panel 4738 (unknown) (no date) (unknown) [facility] (no value) [facility] Result panel 4739 (unknown) (no date) (unknown) [facility] (no value) [facility] Result panel 4740 (unknown) (no date) (unknown) [facility]-In (no value) [facility] Result panel 4741 (unknown) (no date) (unknown) [facility] (no value) [facility] Result panel 4742 (unknown) (no date) (unknown) [facility] (no value) [facility] Result panel 4743 (unknown) (no date) (unknown) [facility] (no value) ([facility] Result panel 4744 (unknown) (no date) (unknown) [facility] (no value) [facility] Result panel 4745 (unknown) (no date) (unknown) [facility] (no value) [facility] Result panel 4746 (unknown) (no date) (unknown) [facility] (no value) [facility] Result panel 4747 (unknown) (no date) (unknown) [facility] (no value) [facility] Result panel 4748 (unknown) (no date) (unknown) [facility]-In (no value) [facility] Result panel 4749 (unknown) (no date) (unknown) [facility]-In (no value) [facility] Result panel 4750 (unknown) (no date) (unknown) [facility] (no value) [facility] Result panel 4751 (unknown) (no date) (unknown) [facility]-In (no value) [facility] Result panel 4752 (unknown) (no date) (unknown) [facility]-In (no value) [facility] Result panel 4753 (unknown) (no date) (unknown) [facility]-In (no value) [facility] Result panel 4754 (unknown) (no date) (unknown) [facility]-In (no value) [facility] Result panel 4755 (unknown) (no date) (unknown) [facility]-In (no value) [facility] Result panel 4756 (unknown) (no date) (unknown) [facility]-In (no value) [facility] Result panel 4757 (unknown) (no date) (unknown) [facility]-In (no value) [facility] Result panel 4758 (unknown) (no date) (unknown) [facility]-In (no value) [facility] Result panel 4759 (unknown) (no date) (unknown) [facility]-In (no value) [facility] Result panel 4760 (unknown) (no date) (unknown) [facility] (no value) [facility] Result panel 4761 (unknown) (no date) (unknown) [facility]-In (no value) [facility] Result panel 4762 (unknown) (no date) (unknown) [facility]-In (no value) [facility] Result panel 4763 (unknown) (no date) (unknown) [facility] (no value) [facility] Result panel 4764 (unknown) (no date) (unknown) [facility] (no value) [facility] Result panel 4765 (unknown) (no date) (unknown) [facility] (no value) [facility] Result panel 4766 (unknown) (no date) (unknown) [facility]-In (no value) [facility] Result panel 4767 (unknown) (no date) (unknown) Walk-In (no value) [facility] Result panel 4768 (unknown) (no date) (unknown) [facility]-In (no value) [facility] Result panel 4769 (unknown) (no date) (unknown) [facility] (no value) [facility] Result panel 4770 (unknown) (no date) (unknown) [facility]-In (no value) [facility] Result panel 4771 (unknown) (no date) (unknown) [facility]-In (no value) [facility] Result panel 4772 (unknown) (no date) (unknown) [facility]-In (no value) [facility] Result panel 4773 (unknown) (no date) (unknown) [facility]-In (no value) [facility] Result panel 4774 (unknown) (no date) (unknown) [facility]-In (no value) [facility] Result panel 4775 (unknown) (no date) (unknown) [facility]-In (no value) [facility] Result panel 4776 (unknown) (no date) (unknown) [facility]-In (no value) [facility] Result panel 4777 (unknown) (no date) (unknown) [facility]-In (no value) [facility] Result panel 4778 (unknown) (no date) (unknown) [facility]-In (no value) [facility] Result panel 4779 (unknown) (no date) (unknown) [facility]-In (no value) [facility] Result panel 4780 (unknown) (no date) (unknown) Walk-In (no value) [facility] Result panel 4781 (unknown) (no date) (unknown) [facility]-In (no value) [facility] Result panel 4782 (unknown) (no date) (unknown) [facility]-In (no value) [facility] Result panel 4783 (unknown) (no date) (unknown) Walk-In (no value) [facility] Result panel 4784 (unknown) (no date) (unknown) Walk-In (no value) [facility] Result panel 4785 (unknown) (no date) (unknown) [facility]-In (no value) [facility] Result panel 4786 (unknown) (no date) (unknown) Walk-In (no value) [facility] Result panel 4787 (unknown) (no date) (unknown) Walk-In (no value) [facility] Result panel 4788 (unknown) (no date) (unknown) [facility] value[facility] Result panel 4789 (unknown) (no date) (unknown) [facility]no value) [facility] Result panel 4790 (unknown) (no date) (unknown) [facility] (no value) [facility] Result panel 4791 (unknown) (no date) (unknown) [facility] (no value) [facility] Result panel 4792 (unknown) (no date) (unknown) [facility] (no value) [facility] Result panel 4793 (unknown) (no date) (unknown) [facility] (no value) [facility] Result panel 4794 (unknown) (no date) (unknown) [facility] (no value) [facility] Result panel 4795 (unknown) (no date) (unknown) [facility] (no value) [facility] Result panel 4796 (unknown) (no date) (unknown) [facility] (no value) [facility] Result panel 4797 (unknown) (no date) (unknown) [facility] (no value) [facility] Result panel 4798 (unknown) (no date) (unknown) [facility] (no value) [facility] Result panel 4799 (unknown) (no date) (unknown) [facility] (no value) [facility] Result panel 4800 (unknown) (no date) (unknown) [facility] (no value) [facility] Result panel 4801 (unknown) (no date) (unknown) [facility] (no value) [facility] Result panel 4802 (unknown) (no date) (unknown) [facility] (no value) [facility] Result panel 4803 (unknown) (no date) (unknown) [facility] (no value) [facility] Result panel 4804 (unknown) (no date) (unknown) [facility] (no value) [facility] Result panel 4805 (unknown) (no date) (unknown) [facility] (no value) [facility] Result panel 4806 (unknown) (no date) (unknown) [facility] (no value) [facility] Result panel 4807 (unknown) (no date) (unknown) [facility] (no value) [facility] Result panel 4808 (unknown) (no date) (unknown) [facility] (no value) [facility] Result panel 4809 (unknown) (no date) (unknown) [facility] (no value) [facility] Result panel 4810 (unknown) (no date) (unknown) [facility] (no value) [facility] Result panel 4811 (unknown) (no date) (unknown) [facility] (no value) [facility] Result panel 4812 (unknown) (no date) (unknown) [facility] (no value) [facility] Result panel 4813 (unknown) (no date) (unknown) [facility] (no value) [facility] Result panel 4814 (unknown) (no date) (unknown) [facility] (no value) [facility] Result panel 4815 (unknown) (no date) (unknown) [facility] (no value) [facility] Result panel 4816 (unknown) (no date) (unknown) [facility] (no value) [facility] Result panel 4817 (unknown) (no date) (unknown) [facility] (no value) [facility] Result panel 4818 (unknown) (no date) (unknown) [facility] (no value) [facility] Result panel 4819 (unknown) (no date) (unknown) [facility] (no value) [facility] Result panel 4820 (unknown) (no date) (unknown) [facility] (no value) [facility] Result panel 4821 (unknown) (no date) (unknown) [facility] (no value) [facility] Result panel 4822 (unknown) (no date) (unknown) [facility] (no value) [facility] Result panel 4823 (unknown) (no date) (unknown) [facility] (no value) [facility] Result panel 4824 (unknown) (no date) (unknown) [facility] (no value) [facility] Result panel 4825 (unknown) (no date) (unknown) [facility] (no value) [facility] Result panel 4826 (unknown) (no date) (unknown) [facility] (no value) [facility] Result panel 4827 (unknown) (no date) (unknown) [facility] (no value) [facility] Result panel 4828 (unknown) (no date) (unknown) [facility] (no value) [facility] Result panel 4829 (unknown) (no date) (unknown) [facility] (no value) [facility] Result panel 4830 (unknown) (no date) (unknown) [facility] (no value) [facility] Result panel 4831 (unknown) (no date) (unknown) [facility] (no value) [facility] Result panel 4832 (unknown) (no date) (unknown) [facility] (no value) [facility] Result panel 4833 (unknown) (no date) (unknown) [facility] (no value) [facility] Result panel 4834 (unknown) (no date) (unknown) [facility] (no value) [facility] Result panel 4835 (unknown) (no date) (unknown) [facility] (no value) [facility] Result panel 4836 (unknown) (no date) (unknown) [facility] (no value) [facility] Result panel 4837 (unknown) (no date) (unknown) [facility] (no value) [facility] Result panel 4838 (unknown) (no date) (unknown) [facility] (no value) [facility] Result panel 4839 (unknown) (no date) (unknown) [facility] (no value) [facility] Result panel 4840 (unknown) (no date) (unknown) [facility] (no value) [facility] Result panel 4841 (unknown) (no date) (unknown) [facility] (no value) [facility] Result panel 4842 (unknown) (no date) (unknown) [facility] (no value) [facility] Result panel 4843 (unknown) (no date) (unknown) [facility] (no value) [facility] Result panel 4844 (unknown) (no date) (unknown) [facility] (no value) [facility] Result panel 4845 (unknown) (no date) (unknown) [facility] (no value) [facility] Result panel 4846 (unknown) (no date) (unknown) [facility] (no value) [facility] Result panel 4847 (unknown) (no date) (unknown) [facility] (no value) [facility] Result panel 4848 (unknown) (no date) (unknown) [facility] (no value) [facility] Result panel 4849 (unknown) (no date) (unknown) [facility] (no value) [facility] Result panel 4850 (unknown) (no date) (unknown) [facility] (no value) [facility] Result panel 4851 (unknown) (no date) (unknown) [facility] (no value) [facility] Result panel 4852 (unknown) (no date) (unknown) [facility] (no value) [facility] Result panel 4853 (unknown) (no date) (unknown) [facility] (no value) [facility] Result panel 4854 (unknown) (no date) (unknown) [facility] (no value) [facility] Result panel 4855 (unknown) (no date) (unknown) [facility] (no value) [facility] Result panel 4856 (unknown) (no date) (unknown) [facility] (no value) [facility] Result panel 4857 (unknown) (no date) (unknown) [facility] (no value) [facility] Result panel 4858 (unknown) (no date) (unknown) [facility] (no value) [facility] Result panel 4859 (unknown) (no date) (unknown) [facility] (no value) [facility] Result panel 4860 (unknown) (no date) (unknown) [facility] (no value) [facility] Result panel 4861 (unknown) (no date) (unknown) [facility] (no value) [facility] Result panel 4862 (unknown) (no date) (unknown) [facility] (no value) [facility] Result panel 4863 (unknown) (no date) (unknown) [facility] (no value) [facility] Result panel 4864 (unknown) (no date) (unknown) [facility] (no value) [facility] Result panel 4865 (unknown) (no date) (unknown) [facility] (no value) [facility] Result panel 4866 (unknown) (no date) (unknown) [facility] (no value) [facility] Result panel 4867 (unknown) (no date) (unknown) [facility] (no value) [facility] Result panel 4868 (unknown) (no date) (unknown) [facility] (no value) [facility] Result panel 4869 (unknown) (no date) (unknown) [facility] (no value) [facility] Result panel 4870 (unknown) (no date) (unknown) [facility] (no value) [facility] Result panel 4871 (unknown) (no date) (unknown) [facility] (no value) [facility] Result panel 4872 (unknown) (no date) (unknown) [facility] (no value) [facility] Result panel 4873 (unknown) (no date) (unknown) [facility] (no value) [facility] Result panel 4874 (unknown) (no date) (unknown) [facility] (no value) [facility] Result panel 4875 (unknown) (no date) (unknown) [facility] (no value) [facility] Result panel 4876 (unknown) (no date) (unknown) [facility] (no value) [facility] Result panel 4877 (unknown) (no date) (unknown) [facility] (no value) [facility] Result panel 4878 (unknown) (no date) (unknown) [facility] (no value) [facility] Result panel 4879 (unknown) (no date) (unknown) [facility] (no value) [facility] Result panel 4880 (unknown) (no date) (unknown) [facility] (no value) [facility] Result panel 4881 (unknown) (no date) (unknown) [facility] (no value) [facility] Result panel 4882 (unknown) (no date) (unknown) [facility] (no value) [facility] Result panel 4883 (unknown) (no date) (unknown) [facility] (no value) [facility] Result panel 4884 (unknown) (no date) (unknown) [facility] (no value) [facility] Result panel 4885 (unknown) (no date) (unknown) [facility] (no value) [facility] Result panel 4886 (unknown) (no date) (unknown) [facility] (no value) [facility] Result panel 4887 (unknown) (no date) (unknown) [facility] (no value) [facility] Result panel 4888 (unknown) (no date) (unknown) [facility] (no value) [facility] Result panel 4889 (unknown) (no date) (unknown) [facility] (no value) [facility] Result panel 4890 (unknown) (no date) (unknown) [facility] (no value) [facility] Result panel 4891 (unknown) (no date) (unknown) [facility] (no value) [facility] Result panel 4892 (unknown) (no date) (unknown) [facility] (no value) [facility] Result panel 4893 (unknown) (no date) (unknown) [facility] (no value) [facility] Result panel 4894 (unknown) (no date) (unknown) [facility] (no value) [facility] Result panel 4895 (unknown) (no date) (unknown) [facility] (no value) [facility] Result panel 4896 (unknown) (no date) (unknown) [facility] (no value) [facility] Result panel 4897 (unknown) (no date) (unknown) [facility] (no value) [facility] Result panel 4898 (unknown) (no date) (unknown) [facility] (no value) [facility] Result panel 4899 (unknown) (no date) (unknown) [facility] (no value) [facility] Result panel 4900 (unknown) (no date) (unknown) [facility] (no value) [facility] Result panel 4901 (unknown) (no date) (unknown) [facility] (no value) [facility] Result panel 4902 (unknown) (no date) (unknown) [facility] (no value) [facility] Result panel 4903 (unknown) (no date) (unknown) [facility] (no value) [facility] Result panel 4904 (unknown) (no date) (unknown) [facility] (no value) [facility] Result panel 4905 (unknown) (no date) (unknown) [facility] (no value) [facility] Result panel 4906 (unknown) (no date) (unknown) [facility] (no value) [facility] Result panel 4907 (unknown) (no date) (unknown) [facility] (no value) [facility] Result panel 4908 (unknown) (no date) (unknown) [facility] (no value) [facility] Result panel 4909 (unknown) (no date) (unknown) [facility] (no value) [facility] Result panel 4910 (unknown) (no date) (unknown) [facility] (no value) [facility] Result panel 4911 (unknown) (no date) (unknown) [facility] (no value) [facility] Result panel 4912 (unknown) (no date) (unknown) [facility] (no value) [facility] Result panel 4913 (unknown) (no date) (unknown) [facility] (no value) [facility] Result panel 4914 (unknown) (no date) (unknown) [facility] (no value) [facility] Result panel 4915 (unknown) (no date) (unknown) [facility] (no value) [facility] Result panel 4916 (unknown) (no date) (unknown) [facility] (no value) [facility] Result panel 4917 (unknown) (no date) (unknown) [facility] (no value) [facility] Result panel 4918 (unknown) (no date) (unknown) [facility] (no value) [facility] Result panel 4919 (unknown) (no date) (unknown) [facility] (no value) [facility] Result panel 4920 (unknown) (no date) (unknown) [facility] (no value) [facility] Result panel 4921 (unknown) (no date) (unknown) [facility] (no value) [facility] Result panel 4922 (unknown) (no date) (unknown) [facility] (no value) [facility] Result panel 4923 (unknown) (no date) (unknown) [facility] (no value) [facility] Result panel 4924 (unknown) (no date) (unknown) [facility] (no value) [facility] Result panel 4925 (unknown) (no date) (unknown) [facility] (no value) [facility] Result panel 4926 (unknown) (no date) (unknown) [facility] (no value) [facility] Result panel 4927 (unknown) (no date) (unknown) [facility] (no value) [facility] Result panel 4928 (unknown) (no date) (unknown) [facility] (no value) [facility] Result panel 4929 (unknown) (no date) (unknown) [facility] (no value) [facility] Result panel 4930 (unknown) (no date) (unknown) [facility] (no value) [facility] Result panel 4931 (unknown) (no date) (unknown) [facility] (no value) [facility] Result panel 4932 (unknown) (no date) (unknown) [facility] (no value) [facility] Result panel 4933 (unknown) (no date) (unknown) [facility] (no value) [facility] Result panel 4934 (unknown) (no date) (unknown) [facility] (no value) [facility] Result panel 4935 (unknown) (no date) (unknown) [facility] (no value) [facility] Result panel 4936 (unknown) (no date) (unknown) [facility] (no value) [facility] Result panel 4937 (unknown) (no date) (unknown) [facility] (no value) [facility] Result panel 4938 (unknown) (no date) (unknown) [facility] (no value) [facility] Result panel 4939 (unknown) (no date) (unknown) [facility] (no value) [facility] Result panel 4940 (unknown) (no date) (unknown) [facility] (no value) [facility] Result panel 4941 (unknown) (no date) (unknown) [facility] (no value) [facility] Result panel 4942 (unknown) (no date) (unknown) [facility] (no value) [facility] Result panel 4943 (unknown) (no date) (unknown) [facility] (no value) [facility] Result panel 4944 (unknown) (no date) (unknown) [facility] (no value) [facility] Result panel 4945 (unknown) (no date) (unknown) [facility] (no value) [facility] Result panel 4946 (unknown) (no date) (unknown) [facility] (no value) [facility] Result panel 4947 (unknown) (no date) (unknown) [facility] (no value) [facility] Result panel 4948 (unknown) (no date) (unknown) [facility] (no value) [facility] Result panel 4949 (unknown) (no date) (unknown) [facility] (no value) [facility] Result panel 4950 (unknown) (no date) (unknown) [facility] (no value) [facility] Result panel 4951 (unknown) (no date) (unknown) [facility] (no value) [facility] Result panel 4952 (unknown) (no date) (unknown) [facility] (no value) [facility] Result panel 4953 (unknown) (no date) (unknown) [facility] (no value) [facility] Result panel 4954 (unknown) (no date) (unknown) [facility] (no value) [facility] Result panel 4955 (unknown) (no date) (unknown) [facility] (no value) [facility] Result panel [id number] (unknown) (no date) (unknown) [facility] (no value) [facility]) [facility] Result panel 4957 (unknown) (no date) (unknown) Walk-[facility] (no value) ([facility] unknown) [facility] Result panel 4958 (unknown) (no date) (unknown) [facility] (no value) (units [facility]) [facility] Result panel 4959 (unknown) (no date) (unknown) Walk-[facility] (no value) (units [facility]) [facility] Result panel 4960 (unknown) (no date) (unknown) Walk-[facility] (no value) (units ([facility]) [facility] Result panel 4961 (unknown) (no date) (unknown) Walk-[facility] (no value) (units ([facility]own[facility]) [facility] Result panel 4962 (unknown) (no date) (unknown) Walk-In (no value) (units ([facility] unknown) [facility] Result panel 4963 (unknown) (no date) (unknown) Walk-In (no value) (units ([facility]own[facility] unknown) [facility] Result panel 4964 (unknown) (no date) (unknown) Walk-In (no value) (units ([facility]) [facility] Result panel 4965 (unknown) (no date) (unknown) Walk-In (no value) (units ([facility] unknown) [facility] Result panel 4966 (unknown) (no date) (unknown) Walk-In (no value) (units ([facility]own[facility] unknown) [facility] Result panel 4967 (unknown) (no date) (unknown) Walk-In (no value) (units ([facility]) [facility] Result panel 4968 (unknown) (no date) (unknown) Walk[facility]In (no value) (units ([facility]) [facility] Result panel 4969 (unknown) (no date) (unknown) Walk-In (no value) (units ([facility]own[facility] unknown) [facility] Result panel 4970 (unknown) (no date) (unknown) Walk-In (no value) (units ([facility] unknown) [facility] Social History date description facility 2022-07-17 00:00 Never smoker Walk-In Clinic [facility] 2022-09-27 00:00 Never smoker Walk-In Clinic [facility] Vital Signs date measurement value units 2022-07-17 00:00 BMI 28.87 kg/m2 2022-07-17 00:00 [...] 74.84 kg 2022-07-24 00:00 weight_standard 165 lb 2022-09-27 00:00 BMI 28.87 kg/m2 2022-09-27 00:00 BP_diastolic 77 mmHg 2022-09-27 00:00 BP_systolic 114 mmHg 2022-09-27 00:00 heart_rate 86 /min 2022-09-27 00:00 height_metric 161.29 cm 2022-09-27 00:00 height_standard 63.5 in 2022-09-27 00:00 respiration_rate 16 /min 2022-09-27 00:00 temperature_metric 36.28 C 2022-09-27 00:00 temperature_standard 97.3 F 2022-09-27 00:00 weight_metric 74.84 kg 2022-09-27 00:00 weight_standard 165 lb
--- NOTE | 2022-10-14 13:53 | XRAY Report ---
PROCEDURE: Chest 1 View X-Ray INDICATIONS: chest pain TECHNIQUE: One view of the chest was acquired. COMPARISON: 08/29/2022 and 03/26/2022. FINDINGS: Surgical changes and devices: Median sternotomy wires are seen.. Lungs and pleura: There is pulmonary vascular congestion. Small right pleural effusion is seen. No de finite focal infiltrate. No pneumothorax. Mediastinum: Mediastinal contours appear normal. Heart size is enlarged. Bones and chest wall: No suspicious bony lesions. Overlying soft tissues appear unremarkable. IMPRESSION: Finding is suggestive of CHF with small right pleural effusion, pulmonary vascular congestion and mil d pulmonary edema. No definite focal infiltrate. No pneumothorax. Reviewed by: Anthony Conde MD on 10/14/2022 1:51 PM PST Approved by: Anthony Conde MD on 10/14/2022 1:51 PM PST Station ID: [id number]
[2022-10-14 14:04] LABS: BACTERIA,URINE Few /HPF (None Seen); RBC,URINE 0-5 /HPF (0-5); SQUAMOUS EPITHELIAL CELL,UR MOD Squamous (<= Few); WBC,URINE 0-3 /HPF (0-5)
[2022-10-14 15:17] VITALS: BP 132/113
== END 2022-10-14 16:21 | disposition home or self-care (01) ==
LOC: ED 12:34
DX: I35.0 Nonrheumatic aortic (valve) stenosis (principal); E11.22 Type 2 diabetes mellitus with diabetic chronic kidney disease; N18.6 End stage renal disease; F03.90 Unspecified dementia, unspecified severity, without behavioral disturbance, psychotic disturbance, mood disturbance, and anxiety; Z95.1 Presence of aortocoronary bypass graft; Z79.84 Long term (current) use of oral hypoglycemic drugs; Z66 Do not resuscitate
CPT/HCPCS: 36415; 51701; 80053; 81001; 83605; 83880; 84484; 85025; 87040; 87086; 99284; 99285

== ENCOUNTER 2022-10-14 17:00 | Outpatient (CLI) | payer MEDICARE, OTHER | END 2022-10-14 17:01 | disposition home or self-care (01) | LOC: EMS 17:00 | PROVIDERS: ATTEND Registered Nurse | DX: Z51.5 Encounter for palliative care (principal); R41.0 Disorientation, unspecified; Z74.01 Bed confinement status | CPT/HCPCS: A0425; A0428 ==